=== PATIENT | male | born 1930 | race Caucasian/White ===

== ENCOUNTER 2019-01-26 15:32 | Inpatient (IN) | payer MEDICARE ==
[~2019-01-26] VITALS: Ht 185.4 cm; Wt 97.3 kg
[2019-01-26 16:06] LABS: BASO # 0.1 x10^3/uL (0.0-0.2); BASO % 1 % (0-3); EOS # 0.2 x10^3/uL (0.0-0.7); EOS % 1 % (0-3); HEMOGLOBIN 13.9 g/dL (13.0-17.5); LYMPH # 0.4 x10^3/uL (1.0-4.8); LYMPH % 3 % (24-48); MEAN CORPUSCULAR HEMOGLOBIN 33 pg (25-35); MEAN CORPUSCULAR HGB CONC 32 g/dL (31-37); MEAN CORPUSCULAR VOLUME 102 fL (79-100); MONO # 0.5 x10^3/uL (0.0-1.1); MONO % 4 % (0-9); NEUT # 10.7 x10^3uL (1.8-7.7); NEUT % 91 % (31-73); PLATELET COUNT 172 x10^3/uL (140-400); RED BLOOD COUNT 4.21 x10^6/uL (4.30-5.70); RED CELL DISTRIBUTION WIDTH 16.1 % (11.5-14.5); WHITE BLOOD COUNT 11.7 x10^3/uL (4.0-11.0)
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
[2019-01-26 16:20] LABS: ALBUMIN/GLOBULIN RATIO 0.9 (1.0-1.7); CALCIUM 8.6 mg/dL (8.5-10.1); CREATININE 2.5 mg/dL (0.7-1.3); GFR 24.4; MAGNESIUM 1.8 mg/dL (1.8-2.4); POTASSIUM 4.6 mmol/L (3.5-5.1); TOTAL BILIRUBIN 0.5 mg/dL (0.2-1.0); TOTAL PROTEIN 6.5 g/dL (6.4-8.2)
[2019-01-26 17:08] LABS: BILIRUBIN,URINE NEG (NEG); CLARITY,URINE CLEAR; COLOR,URINE YELLOW; GLUCOSE,URINE NEG (NEG)
[2019-01-26 17:09] LABS: BACTERIA,URINE FEW /HPF (0-FEW); HYALINE CASTS, URINE MANY /HPF; NITRITE,URINE NEG (NEG); RBC,URINE 0 /HPF (0-2); SQUAMOUS EPITHELIAL CELL,UR OCC /LPF; UROBILINOGEN,URINE 0.2 mg/dL (0.2 mg/dL)
[2019-01-26] MEDS ORDERED: IV NORMAL SALINE 1,000ML 1,000 ML IV ONE (17:30)
[2019-01-26 23:33] VITALS: BP 128/57
[2019-01-27] MEDS ORDERED: ACETAMINOPHEN 325 MG TABLET PO PRN
[2019-01-27] MEDS ORDERED: MAG HYDROX/AL HYDROX/SIMETH 30 ML ORAL.SUSP PO PRN
[2019-01-27] MEDS ORDERED: METHYL SALICYLATE/MENTHOL TOPICAL OINTMENT 29GM TUBE. TP PRN
[2019-01-27] MEDS ORDERED: MAGNESIUM HYDROXIDE 2,400 MG/30 ML ORAL.SUSP. PO PRN
[2019-01-27] MEDS ORDERED: ASPI325T8 PO (00:23)
[2019-01-27] MEDS ORDERED: ACET325T9 PO (00:23)
[2019-01-27] MEDS ORDERED: CLOP75TA PO (00:23)
[2019-01-27] MEDS ORDERED: ALLO300T PO (00:23)
[2019-01-27] MEDS ORDERED: ATOR40TA PO (00:23)
[2019-01-27] MEDS ORDERED: FOLI1TAB16 PO (00:23)
[2019-01-27] MEDS ORDERED: FINA5TAB4 PO (00:23)
[2019-01-27] MEDS ORDERED: CLON0.12 PO (00:23)
[2019-01-27] MEDS ORDERED: TAMS0.4C2 PO (00:23)
[2019-01-27] MEDS ORDERED: BRIM5DRO3 OD (00:23)
[2019-01-27] MEDS ORDERED: LATA2.5D3 OU (00:23)
[2019-01-27] MEDS ORDERED: ATEN100T PO (00:23)
[2019-01-27] MEDS ORDERED: ALBU2.5V8 INH (00:23)
[2019-01-27] MEDS ORDERED: HYDR12.58 PO (00:23)
[2019-01-27] MEDS ORDERED: DORZ10DR26 OD (00:23)
[2019-01-27] MEDS ORDERED: LEVO75TA5 PO (00:23)
[2019-01-27] MEDS ORDERED: LOSA50TA86 PO (00:23)
[2019-01-27] MEDS ORDERED: TIMO10DR5 OD (00:23)
[2019-01-27] MEDS ORDERED: PANT40TA5 PO (00:23)
[2019-01-27] MEDS ORDERED: A/C/1TAB PO (00:23)
[2019-01-27] MEDS ORDERED: CLON0.1T PO (00:23)
[2019-01-27] MEDS ORDERED: GABA-585 PO ×2 (00:23)
[2019-01-27] MEDS ORDERED: LACT1CAP21 PO (00:23)
[2019-01-27] MEDS ORDERED: PILO5TAB16 OD (00:23)
[2019-01-27] MEDS ORDERED: MULT1TAB52 PO (00:23)
[2019-01-27] MEDS ORDERED: PARO40TA3 PO (00:24)
[2019-01-27] MEDS ORDERED: TRAZ-120 PO (00:24)
[2019-01-27] MEDS ORDERED: [UNRECOGNIZED DRUG - CODE] TP (00:24)
--- NOTE | 2019-01-27 00:41 | NUR ---
Admission Note with Justification for Admission to [facility] Patient admitted to [facility] for protective oversight for emergency stabilization of acute psychiatric crisis. Pt admitted from: SNF Mode of arrival: EMS Accompanied By: EMS Precipitating behaviors that initiated intake and admission:Combative, Threatening to other patients, delusional. Description of failure of out patient attempts at stabilization in previous setting list behavior and medication trials: Tele psych consult, new dementia Dx, Neurologist Behaviors and assessment findings upon admission: Patient sedated upon arrival and unable to answer assessment questions appropriately. The patient was not resistive during assessment. Patient delusional asking this nurse "are the blue catfish biting?" The patient is currently sleeping in his bed. Plan: Admit for protective oversight for adjustment and stabilization of medications, behaviors and mood. Intense treatment regimen including groups, medication adjustments, therapy, consistent regimen for ADL's, self care, and sleep hygiene. Daily monitoring by Inpatient staff, Psychiatry, and Medical Physician.
[2019-01-27] MEDS ORDERED: ALBUTEROL SULFATE 2.5 MG/3 ML NEBU. INH PRN (01:00)
[2019-01-27 06:09] VITALS: BP 112/76
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
[2019-01-27] MEDS ORDERED: DORZOLAMIDE 2% OPHTH SOLUTION 10ML BOTTLE. OD SCH (09:00)
[2019-01-27] MEDS ORDERED: ALOE VERA TP SCH (09:00)
[2019-01-27] MEDS ORDERED: COLLAGEN TP SCH (09:00)
[2019-01-27] MEDS ORDERED: hydroCHLOROthiazide 12.5 MG CAPSULE PO SCH (09:00)
[2019-01-27] MEDS: TIMOLOL 0.5% OPHTH SOLUTION 5ML BOTTLE. OD SCH ×4 (09:00→20:15)
[2019-01-27] MEDS ORDERED: LOSARTAN 50 MG TABLET. PO SCH (09:00)
[2019-01-27] MEDS ORDERED: PILOCARPINE 1% OPHTH SOLUTION 15ML BOTTLE. OD SCH (09:00)
[2019-01-27] MEDS ORDERED: BRIMONIDINE 0.2% OPHTH SOLUTION 5ML BOTTLE. OD SCH (09:00)
--- NOTE | 2019-01-27 12:47 | NUR ---
Met with Kevan this morning in the quiet room. Kevan indicated he needed to use the bathroom. CHANGE AGENT's notified and assisted. Kevan is alert and oriented to himself. He was hallucinating and spoke of seeing birds, a river, and a green boat. He recalled place as "[place]" and the year as "1988." Kevan answered some questions this worker asked him about his history, unsure of the accuracy of his report. Call placed to [place], son/POA, and received a voice message indicating his mailbox was full. Call placed to next of kin, Velma/daughter, and message left with request for return phone call to verify psychosocial information and to obtain additional history. Awaiting return phone call.
[2019-01-27] MEDS: TAMSULOSIN 0.4 MG CAP.ER.24H. PO SCH (13:23)
[2019-01-27] MEDS: MULTIVITAMIN I-VITE TABLET. PO SCH ×3 (13:23→21:00)
[2019-01-27] MEDS: ALLOPURINOL 100 MG TABLET. PO SCH (13:24)
[2019-01-27] MEDS: LEVOTHYROXINE 75 MCG TABLET PO SCH (13:24)
[2019-01-27] MEDS: MULTIVITAMIN with MINERAL TABLET. PO SCH (13:24)
[2019-01-27] MEDS: GABAPENTIN 100 MG CAPSULE. PO SCH ×4 (13:25→21:00)
[2019-01-27] MEDS: FOLIC ACID 1 MG TABLET PO SCH (13:25)
[2019-01-27] MEDS: FINASTERIDE 5 MG TABLET PO SCH (13:25)
[2019-01-27] MEDS: LACTOBACILLUS RHAMNOSUS GG 1 CAPSULE. PO SCH (13:25)
[2019-01-27] MEDS: PARoxetine 20 MG TABLET PO SCH (13:26)
[2019-01-27] MEDS: ATENOLOL 50 MG TABLET PO SCH (13:26)
[2019-01-27] MEDS: ASPIRIN 325 MG TABLET PO SCH (13:27)
[2019-01-27] MEDS: clonazePAM 0.5 MG TABLET PO SCH ×3 (13:27→19:53)
[2019-01-27] MEDS: CLOPIDOGREL BISULFATE 75 MG TABLET PO SCH (13:27)
[2019-01-27] MEDS: PANTOPRAZOLE 40 MG TABLET. PO SCH (13:27)
[2019-01-27 13:47] LABS: THYROID STIM HORMONE (TSH) 0.567 uIU/mL (0.358-3.740)
[2019-01-27 16:25] VITALS: BP 145/84
--- NOTE | 2019-01-27 16:51 | RAD ---
EXAM: Left lower extremity venous Doppler sonogram. HISTORY: Pain and swelling. TECHNIQUE: Howard scale and color Doppler sonographic evaluation of the left lower extremity veins with spectral waveform analysis was performed. FINDINGS: There is normal color flow, normal compressibility and there are normal spectral waveforms in the common femoral, superficial femoral, popliteal, posterior tibial and greater saphenous veins. IMPRESSION: No Doppler evidence of lower extremity deep venous thrombosis. Electronically signed by: Evette Cheung MD (01/27/2019 4:47 PM) [place] [id number]
--- NOTE | 2019-01-27 17:53 | NUR ---
Behavior Intervention Response and Plan: BIRP Note: Behavior: Assumed Care of patient, patient located in Hallway at shift change. Patient exhibited the following behavior Restless, Disorganized, Drowsy. Brief assessment on rounds of vital signs, medication needs, lab studies, and pain. Treatment plan problems . Intervention: Patient assessed and the following interventions initiated safety checks 15 Minute Checks Cognitive Assessment , Head to toe Assessment , Medications. Response: After interactions and interventions patient responded in the following manner, Calm , Drowsy ,Interactive. Continue to assess behaviors and condition will continue to monitor throughout the shift as needed. Patient educated on ADL's, and hand hygiene. 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 Continue to assess patient for changes in above assessment. Monitor for medication needs, pain, and safety concerns. Hourly rounding performed to ensure safe environment.
[2019-01-27] MEDS: PILOCARPINE 1% OPHTH SOLUTION 15ML BOTTLE. OU SCH ×3 (18:06→20:16)
[2019-01-27] MEDS: DORZOLAMIDE 2% OPHTH SOLUTION 10ML BOTTLE. OU SCH ×3 (18:06→20:16)
--- NOTE | 2019-01-27 18:32 | EKG ---
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
[2019-01-27] MEDS: ATORVASTATIN CALCIUM 20 MG TABLET PO SCH ×2 (19:53→21:00)
[2019-01-27] MEDS: LATANOPROST 0.005% OPHTH SOLUTION 2.5ML BOTTLE. OU SCH ×2 (19:58→20:16)
[2019-01-27] MEDS: BRIMONIDINE 0.2% OPHTH SOLUTION 5ML BOTTLE. OU SCH ×2 (19:59→20:15)
[2019-01-27] MEDS ORDERED: traZODone 50 MG TABLET. PO SCH (21:00)
[2019-01-27 21:07] LABS: THYROXINE 4.2 ug/dL (4.5-12.0)
--- NOTE | 2019-01-27 22:30 | PDOC ---
Exam Note: Scott Note: Please also refer to the separate dictated note~for this date of service dictated separately. Discussed the patient with Nursing staff reviewed the chart.~Reviewed interim history and current functioning. Reviewed vital signs,~ Labs/ Radiology~and current medications noted below. Continue current treatment with the changes noted in the dictated addendum note Assessment: Vital Signs: Vital Signs Date Time Temp Pulse Resp B/P (MAP) Pulse Ox O2 Delivery O2 Flow Rate FiO2 01/27/19 16:25 98.4 63 18 145/84 (104) 97 01/26/19 15:32 Room Air I&O Intake and Output 01/27/19 06:59 Intake Total 0 ml Output Total 1 ml Balance -1 ml Intake Oral 0 ml Output Urine Total 1 ml # Voids 1 # Bowel Movements 2 Current Medications: Meds: Current Medications Sodium Chloride 1,000 ml @ 1,000 mls/hr 1X ONCE IV Last administered on at 17:31; Start 01/26/19 at 17:30; Stop 01/26/19 at 18:29; Status DC Lorazepam (Ativan) 1 mg 1X ONCE IV Last administered on 01/26/19at 21:22; Start 01/26/19 at 21:15; Stop 01/26/19 at 21:23; Status DC Lorazepam (Ativan) 1 mg 1X ONCE IV Last administered on 01/26/19at 22:44; Start 01/26/19 at 22:30; Stop 01/26/19 at 22:32; Status DC Acetaminophen (Tylenol) 650 mg PRN Q6HRS PRN PO PAIN / TEMP; Start 01/27/19 at 00:00; Status Cancel Multi-Ingredient Ointment (Analgesic [place]) 1 edyta PRN QID PRN TP MUSCLE PAIN; Start 01/27/19 at 00:00 Al Hydroxide/Mg Hydroxide (Mylanta Plus Xs) 15 ml PRN AFTMEALHC PRN PO DYSPEPSIA; Start 01/27/19 at 00:00 Magnesium Hydroxide (Milk Of Magnesia) 2,400 mg PRN QHS PRN PO CONSTIPATION; Start 01/27/19 at 00:00 Clonazepam (KlonoPIN) 0.125 mg TID PO Last administered on 01/27/19at 19:53; Start 01/27/19 at 09:00 Paroxetine HCl (Paxil) 40 mg DAILY PO Last administered on 01/27/19 13:26; Start 01/27/19 at 09:00 Trazodone HCl (Desyrel) 12.5 mg QHS PO ; Start 01/27/19 at 21:00; Stop 01/27/19 at 21:00; Status DC Olanzapine (ZyPREXA ZYDIS) 2.5 mg PRN Q2HR PRN PO PSYCHOSIS; Start 01/27/19 at 01:00 Acetaminophen (Tylenol) 650 mg PRN QID PRN PO PAIN; Start 01/27/19 at 01:00 Albuterol Sulfate (Ventolin) 1 mg PRN Q6HRS PRN INH SHORTNESS OF BREATH; Start 01/27/19 at 01:00 Aspirin (Hira Aspirin) 325 mg DAILYWBKFT PO Last administered on 01/27/19 13: 27; Start 01/27/19 at 08:00 Clonidine HCl (Catapres) 0.1 mg PRN DAILY PRN PO HYPERTENSION, SEE COMMENTS; Start 01/27/19 at 01:00 Clopidogrel Bisulfate (Plavix) 75 mg DAILY PO Last administered on 01/27/19 13 :27; Start 01/27/19 at 09:00 Gabapentin (Neurontin) 100 mg BID94 PO Last administered on 01/27/19 18:05; Start 01/27/19 at 09:00 Gabapentin (Neurontin) 100 mg QHS PO Last administered on 01/27/19 19:53; Start 01/27/19 at 21:00 Levothyroxine Sodium (Synthroid) 75 mcg DAILY06 PO Last administered on 13:24; Start 01/27/19 at 06:00 Losartan Potassium (Cozaar) 50 mg DAILY PO Last administered on 01/27/19 13:26 ; Start 01/27/19 at 09:00; Stop 01/27/19 at 14:32; Status DC Tamsulosin HCl (Flomax) 0.4 mg DAILY PO Last administered on 01/27/19 13:23; Start 01/27/19 at 09:00 Multivitamins/ Minerals (I-Alis) 1 tab BID PO Last administered on 01/27/19 19 :54; Start 01/27/19 at 09:00 Allopurinol (Zyloprim) 150 mg DAILY PO Last administered on 01/27/19 13:24; Start 01/27/19 at 09:00 Non-Formulary Medication (Aloe Vera/ Collagen (Sensi-Care Perineal Cleanser)) 1 edyta BID TP ; Start 01/27/19 at 09:00; Stop 01/27/19 at 09:00; Status DC Atenolol (Tenormin) 100 mg DAILY PO Last administered on 01/27/19 13:26; Start 01/27/19 at 09:00 Atorvastatin Calcium (Lipitor) 40 mg HS PO Last administered on 01/27/19at 19:53 ; Start 01/27/19 at 21:00 Brimonidine Tartrate (Alphagan) 1 drop BID OD ; Start 01/27/19 at 09:00; Stop at 12:36; Status DC Dorzolamide HCl (Trusopt) 1 drop BID OD ; Start 01/27/19 at 09:00; Stop at 12:39; Status DC Finasteride (Proscar) 5 mg DAILY PO Last administered on 01/27/19 13:25; Start 01/27/19 at 09:00 Folic Acid (Folic Acid) 1 mg DAILY PO Last administered on 01/27/19 13:25; Start 01/27/19 at 09:00 Hydrochlorothiazide (Microzide) 12.5 mg DAILY PO Last administered on 13:27; Start 01/27/19 at 09:00; Stop 01/27/19 at 14:32; Status DC Lactobacillus Rhamnosus (Culturelle) 1 cap DAILY PO Last administered on at 13:25; Start 01/27/19 at 09:00 Latanoprost (Xalatan) 1 drop QHS OU ; Start 01/27/19 at 21:00 Multivitamins/ Calcium (Thera-M Plus) 1 tab DAILY PO Last administered on 13:24; Start 01/27/19 at 09:00 Pantoprazole Sodium (Protonix) 40 mg DAILYAC PO Last administered on 01/27/19 13:27; Start 01/27/19 at 07:30 Pilocarpine HCl (Pilocar) 1 drop TID OD ; Start 01/27/19 at 09:00; Stop at 12:38; Status DC Timolol Maleate (Timoptic 0.5% Ophth) 1 drop BID OD Last administered on at 09:00; Start 01/27/19 at 07:15 Brimonidine Tartrate (Alphagan) 1 drop BID OU ; Start 01/27/19 at 12:36 Pilocarpine HCl (Pilocar) 1 drop TID OU Last administered on 01/27/19at 18:06; Start 01/27/19 at 12:38 Dorzolamide HCl (Trusopt) 1 drop TID OU Last administered on 01/27/19at 18:06; Start 01/27/19 at 14:00 Olanzapine (ZyPREXA ZYDIS) 2.5 mg PRN Q2HR PRN PO PSYCHOSIS; Start 01/27/19 at 17:30 Trazodone HCl (Desyrel) 50 mg PRN QHS PRN PO INSOMNIA, MAY REPEAT X1; Start at 17:30 Active Scripts Active Reported Sensi-Care Perineal Cleanser (Aloe Vera/Collagen) 118 Ml Solution 1 Edyta TP BID Paroxetine Hcl 40 Mg Tablet 40 Mg PO DAILY Trazodone Hcl 50 Mg Tablet 12.5 Mg PO QHS Dorzolamide Hcl 10 Ml Drops 1 Drp OD BID Timoptic (Timolol Maleate) 10 Ml Drops 1 Drp OD BID Pilocarpine Hcl 5 Mg Tablet 1 Drop OD TID Latanoprost 2.5 Ml Drops 1 Drop OU QHS Alphagan P (Brimonidine Tartrate) 5 Ml Drops 1 Drop OD BID Pantoprazole Sodium 40 Mg Tablet.dr 40 Mg PO DAILY Cozaar (Losartan Potassium) 50 Mg Tablet 50 Mg PO DAILY Levothyroxine Sodium 75 Mcg Tablet 75 Mcg PO DAILYAC Culturelle (Lactobacillus Rhamnosus Gg) 1 Each Capsule 1 Each PO DAILY Gabapentin (Gabapentin) 100 Mg Capsule 100 Mg PO QHS Gabapentin (Gabapentin) 100 Mg Capsule 100 Mg PO BID Finasteride 5 Mg Tablet 5 Mg PO DAILY Clonidine Hcl 0.1 Mg Tablet 0.1 Mg PO PRN DAILY PRN Lipitor (Atorvastatin Calcium) 40 Mg Tablet 40 Mg PO DAILY Atenolol 100 Mg Tablet 100 Mg PO DAILY Allopurinol 300 Mg Tablet 150 Mg PO DAILY Proair Hfa Inhaler (Albuterol Sulfate) 8.5 Gm Hfa.aer.ad 1 Puff INH PRN Q6HRS PRN Multivitamins (Multivitamin) 1 Each Tablet 1 Each PO DAILY Aspirin 325 Mg Tablet 325 Mg PO DAILY Folic Acid 1 Mg Tablet 1 Mg PO DAILY Clopidogrel (Clopidogrel Bisulfate) 75 Mg Tablet 75 Mg PO DAILY Macuvite Eye Care Tablet (A/C/E/Zinc Ox/Cupric Ox/Lutein) 1 Each Tablet 1 Each PO BID Tylenol (Acetaminophen) 325 Mg Tablet 650 Mg PO PRN QID PRN Clonazepam 0.125 Mg Tab.rapdis 0.125 Mg PO TID Tamsulosin Hcl 0.4 Mg Cap.er.24h 0.4 Mg PO DAILY Hydrochlorothiazide Tablet (Hydrochlorothiazide) 12.5 Mg Tablet 12.5 Mg PO DAILY I have reviewed the current psychotropics carefully including drug interactions. Risk benefit ratio favors no change other than as noted in my dictated progress note. Diagnosis: Problems: (1) Medical clearance for psychiatric admission (2) Anxiety disorder (3) Dementia with behavioral disturbance (4) Dementia, vascular, with delusions (5) Dementia, vascular, with depression (6) Dementia in Alzheimer's disease with delusions (7) Dementia in Alzheimer's disease with depression (8) Impulse control disorder PAOLO THOMAS MD Jan 27, 2019 22:30
[2019-01-27] MEDS: traZODone 50 MG TABLET. PO PRN (22:41)
[2019-01-28 00:20] LABS: HEMOGLOBIN A1C 6.4 % (4.8-5.6)
[2019-01-28] MEDS: traZODone 50 MG TABLET. PO PRN ×2 (00:45→20:32)
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
--- NOTE | 2019-01-28 02:49 | NUR ---
Nursing Note The patient was located in the day room initially this shift. The patient was non compliant with his medications. The patient became very irritable during interactions with this nurse and other staff. The patient eventually did put himself onto the floor and was assisted into the quiet [place] for safety. The patient spent the remainder of the night in the quiet [place]. the patient was given PRN Zyprexa and Trazodone @2241. Patient was given repeat Trazodone @0045.
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
[2019-01-28 07:43] LABS: CALCIUM 8.4 mg/dL (8.5-10.1); CREATININE 1.6 mg/dL (0.7-1.3); GFR 40.9; POTASSIUM 3.6 mmol/L (3.5-5.1)
--- NOTE | 2019-01-28 09:46 | NUR ---
Attempted to reach Chino, son/POA, via phone to complete psychosocial assessment. Chino's voice message indicated his mailbox was full. Call placed to Velma, daughter/next of kin, and message left with request for return phone call.
[2019-01-28] MEDS: TAMSULOSIN 0.4 MG CAP.ER.24H. PO SCH (10:01)
[2019-01-28] MEDS: ASPIRIN 325 MG TABLET PO SCH (10:01)
[2019-01-28] MEDS: FOLIC ACID 1 MG TABLET PO SCH (10:01)
[2019-01-28] MEDS: FINASTERIDE 5 MG TABLET PO SCH (10:01)
[2019-01-28] MEDS: MULTIVITAMIN I-VITE TABLET. PO SCH ×3 (10:01→20:31)
[2019-01-28] MEDS: CLOPIDOGREL BISULFATE 75 MG TABLET PO SCH (10:01)
[2019-01-28] MEDS: PARoxetine 20 MG TABLET PO SCH (10:01)
[2019-01-28] MEDS: ALLOPURINOL 100 MG TABLET. PO SCH (10:02)
[2019-01-28] MEDS: LEVOTHYROXINE 75 MCG TABLET PO SCH (10:02)
[2019-01-28] MEDS: LACTOBACILLUS RHAMNOSUS GG 1 CAPSULE. PO SCH (10:02)
[2019-01-28] MEDS: MULTIVITAMIN with MINERAL TABLET. PO SCH (10:03)
[2019-01-28] MEDS: PANTOPRAZOLE 40 MG TABLET. PO SCH (10:03)
[2019-01-28] MEDS: ATENOLOL 50 MG TABLET PO SCH (10:03)
[2019-01-28] MEDS: clonazePAM 0.5 MG TABLET PO SCH ×3 (10:06→20:19)
[2019-01-28] MEDS: GABAPENTIN 100 MG CAPSULE. PO SCH ×4 (10:07→20:57)
[2019-01-28] MEDS: DORZOLAMIDE 2% OPHTH SOLUTION 10ML BOTTLE. OU SCH ×3 (10:08→20:31)
[2019-01-28] MEDS: TIMOLOL 0.5% OPHTH SOLUTION 5ML BOTTLE. OD SCH ×2 (10:09→20:31)
[2019-01-28] MEDS: PILOCARPINE 1% OPHTH SOLUTION 15ML BOTTLE. OU SCH ×3 (10:09→20:31)
[2019-01-28] MEDS: BRIMONIDINE 0.2% OPHTH SOLUTION 5ML BOTTLE. OU SCH ×2 (10:10→20:31)
--- NOTE | 2019-01-28 15:00 | NUR ---
[facility] down from ~ [id number]. Morning Activity Therapy group charted on paper forms and filed in Pt. chart.
--- NOTE | 2019-01-28 15:26 | NUR ---
PSYCHOSOCIAL ASSESSMENT ADMISSION DATE: 01/26/19 CONTACT INFORMATION: DPOA/Guardian Contact Name: Chino Jauregui Contact Address: [address] [address] Contact Phone #: [phone] ETHNIC ORIGIN: REASONS FOR ADMISSION: Aggressive Agitated Angry Combative Confusion/Disoriented Grief Hallucinations Poor impulse control ADDITIONAL ADMISSION COMMENTS: paranoid REASON FOR ADMISSION IN PATIENT/FAMILY'S OWN WORDS: Family reports rapid decline in cognition since November 2018, unsure why. Kevan has had increased confusion, paranoia, anxiety and family feels he could be sundowning. Kevan was dx with early dementia by his neurologist on 12/31/2018. PATIENT/FAMILY EXPECTATIONS FOR ADMISSION: Family hopeful for clarification on what is causing Kevan's rapid cognitive decline. Once stabilized, Kevan's family has a room reserved for him at [facility]. LIVING SITUATION: Patient lives with: Child/children Other living arrangements: At son and daughter in law's home for the past year. Kevan's in 12/2017 and he moved in with Chino following her . Contact Name: Chino Jauregui Contact Address: [address] [address] Contact Phone #: [phone] FAMILY RELATIONS: Marital Status: # of Marriages: 2 # of Children: 5 [facility] Family Support: Concerned Cooperative Involved in DC Planning Additional Comments r/t Family: Kevan has been twice. His first was April and they had two children, Irma and Mercy. They . Kevan remarried to May and they had three children, Cody, Chino, and Vlema. They were for 61 years until Joimay in December 2017. Their marriage was described as good and happy. Kevan has 13 grand children and great grandchildren too. SIGNIFICANT PSYCHIATRIC/MEDICAL HISTORY: Psychiatric/Treatment History: No previous in patient psychiatric treatment per family. Kevan had seen psychiatrist, Dr. Love, about 15 years ago and was prescribed clonazepam prn for anxiety. Family reports Kevan to have always been a "nervous" person. Pertinent Family History: Kevan was born in [place] and raised in the [place] area. His father was a mill house supervisor and mother was a homemaker. Kevan was the oldest of four children. He had three younger sisters. Kevan's father was a drinker. Kevan did not suffer any known abuse or neglect as a child. HISTORICAL DATA: Childhood Environment: [place] Comment: Psychological Abuse: None Additional Comments: Drug Abuse History last 12 months: No Comment: Kevan quit smoking in 1990. Kevan used to drink beer on a daily basis when he was younger and working. Family expressed that he may have consumed alcohol as a way to relax his nerves after working. At this time, Kevan drinks a beer a couple times a week. 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 Sexual orientation: Heterosexual Educational Level: Kevan graduated high school. Past/Present Interests/Hobbies: Kevan has enjoyed fishing, wood working, filling his bird feeders, and likes [employer]kon[employer] music. Financial support/resources: [facility]/Pension Social Security Monthly income: unknown, adequate Person handling finances: Chino Hermosillo-son Do you have a history of legal problems: No. Kevan may have spent a night in intermediate related to child support payments. Cultural considerations: None reported. SOCIAL RELATIONSHIPS-CURRENT/PAST: Psychiatrist: None at current time. PCP: Dr. Myra Phelps Counselor/Therapist: None. Veterans' Administration: Family is researching VA benefits currently. Support Group: None. Drafter Seismograph/Linen Supply Load Builder: None. Other relationships: Kids and grand kids are attentive. STRENGTHS & WEAKNESSES: Patient's strengths: Good family support, strong relationships Other patient strengths: Adequate funds for group home care Patient's weaknesses: Impaired memory and aggressive behaviors Other patient weaknesses: NO[place]K, aided times two. 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 Hallucination/Delusions Medication Stabilization Monitor Med Effects Control abnormal behavior Other preliminary treatment comments: Will encourage Kevan to be involved in SW and recreational therapy groups while on the unit. DISCHARGE PLANNING: Discharge planning/disposition: [facility] Additional discharge needs identified: Follow up appointment with out patient psychiatrist. ADDITIONAL INFORMATION: Other Pertinent Data: Psychosocial assessment information was provided by Chino, son, on 01/28/19. Most of the information that Kevan had provided to this worker on 01/27/19 was not accurate. When this worker interviewed Kevan on 01/27/19, Kevan was oriented to himself only. He was hallucinating and spoke of seeing birds, a river, and a green boat. He recalled place as "[place]." Chino and his have been Kevan's care takers for the past year, moving Kevan into their home after Kevan's in December 2017. Chino expressed they were in the process of researching care communities as Kevan has declined since 11/2018 and they were not feeling comfortable leaving Kevan at home while they went to work. Chino explained that Kevan was diagnosed by a neurologist on 12/31/2018 with unspecified early dementia and prescribed memantine. On 01/06/19, Kevan was hospitalized for increased confusion, UTI, and possible CHF. On 01/12/19, Kevan was discharged from the hospital and admitted to [facility] for short term rehab. Per family, Kevan has had a rapid cognitive decline since mid November 2018. Chino plans to attend treatment team on 01/29/19. Addendum: 01/28/19 at 1659 by KATELYN GARCIA [facility] [place] reviewed and approves assessment.
[2019-01-28 15:59] VITALS: BP 91/59
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
[2019-01-28] MEDS: MIRTAZAPINE 7.5 MG TABLET. PO SCH (20:19)
[2019-01-28] MEDS: ATORVASTATIN CALCIUM 20 MG TABLET PO SCH ×2 (20:20→20:31)
[2019-01-28] MEDS: LATANOPROST 0.005% OPHTH SOLUTION 2.5ML BOTTLE. OU SCH (20:31)
--- NOTE | 2019-01-28 22:34 | PDOC ---
Exam Note: Scott Note: Please also refer to the separate dictated note~for this date of service dictated separately.~Patient seen individually. Discussed the patient with Nursing staff reviewed the chart.~Reviewed interim history and current functioning. Reviewed vital signs,~Labs/ Radiology~and current medications noted below. Continue current treatment with the changes noted in the dictated addendum note Assessment: Vital Signs: Vital Signs Date Time Temp Pulse Resp B/P (MAP) Pulse Ox O2 Delivery O2 Flow Rate FiO2 01/28/19 15:59 97.8 77 20 91/59 (70) 93 01/26/19 15:32 Room Air I&O Intake and Output 01/28/19 06:59 Intake Total 760 ml Balance 760 ml Intake Oral 760 ml # Bowel Movements 1 Labs: Laboratory Tests Test 01/28/19 07:02 Sodium Level 143 mmol/L (136-145) Potassium Level 3.6 mmol/L (3.5-5.1) Chloride Level 107 mmol/L (98-107) Carbon Dioxide Level 26 mmol/L (21-32) Anion Gap 10 (6-14) Blood Urea Nitrogen 27 mg/dL (8-26) H Creatinine 1.6 mg/dL (0.7-1.3) H Estimated GFR (Cockcroft-Gault) 40.9 Glucose Level 113 mg/dL (70-99) H Calcium Level 8.4 mg/dL (8.5-10.1) L Current Medications: Meds: Current Medications Sodium Chloride 1,000 ml @ 1,000 mls/hr 1X ONCE IV Last administered on at 17:31; Start 01/26/19 at 17:30; Stop 01/26/19 at 18:29; Status DC Lorazepam (Ativan) 1 mg 1X ONCE IV Last administered on 01/26/19at 21:22; Start 01/26/19 at 21:15; Stop 01/26/19 at 21:23; Status DC Lorazepam (Ativan) 1 mg 1X ONCE IV Last administered on 01/26/19at 22:44; Start 01/26/19 at 22:30; Stop 01/26/19 at 22:32; Status DC Acetaminophen (Tylenol) 650 mg PRN Q6HRS PRN PO PAIN / TEMP; Start 01/27/19 at 00:00; Status Cancel Multi-Ingredient Ointment (Analgesic Melvin) 1 edyta PRN QID PRN TP MUSCLE PAIN; Start 01/27/19 at 00:00 Al Hydroxide/Mg Hydroxide (Mylanta Plus Xs) 15 ml PRN AFTMEALHC PRN PO DYSPEPSIA; Start 01/27/19 at 00:00 Magnesium Hydroxide (Milk Of Magnesia) 2,400 mg PRN QHS PRN PO CONSTIPATION; Start 01/27/19 at 00:00 Clonazepam (KlonoPIN) 0.125 mg TID PO Last administered on 01/28/19 20:19; Start 01/27/19 at 09:00 Paroxetine HCl (Paxil) 40 mg DAILY PO Last administered on 01/28/19 10:01; Start 01/27/19 at 09:00 Trazodone HCl (Desyrel) 12.5 mg QHS PO ; Start 01/27/19 at 21:00; Stop 01/27/19 at 21:00; Status DC Olanzapine (ZyPREXA ZYDIS) 2.5 mg PRN Q2HR PRN PO PSYCHOSIS Last administered on 01/28/19at 20:32; Start 01/27/19 at 01:00 Acetaminophen (Tylenol) 650 mg PRN QID PRN PO PAIN; Start 01/27/19 at 01:00 Albuterol Sulfate (Ventolin) 1 mg PRN Q6HRS PRN INH SHORTNESS OF BREATH; Start 01/27/19 at 01:00 Aspirin (Hira Aspirin) 325 mg DAILYWBKFT PO Last administered on 01/28/19 10: 01; Start 01/27/19 at 08:00 Clonidine HCl (Catapres) 0.1 mg PRN DAILY PRN PO HYPERTENSION, SEE COMMENTS; Start 01/27/19 at 01:00 Clopidogrel Bisulfate (Plavix) 75 mg DAILY PO Last administered on 01/28/19 10 :01; Start 01/27/19 at 09:00 Gabapentin (Neurontin) 100 mg BID94 PO Last administered on 01/28/19at 16:09; Start 01/27/19 at 09:00 Gabapentin (Neurontin) 100 mg QHS PO ; Start 01/27/19 at 21:00 Levothyroxine Sodium (Synthroid) 75 mcg DAILY06 PO Last administered on 10:02; Start 01/27/19 at 06:00 Losartan Potassium (Cozaar) 50 mg DAILY PO Last administered on 01/27/19 13:26 ; Start 01/27/19 at 09:00; Stop 01/27/19 at 14:32; Status DC Tamsulosin HCl (Flomax) 0.4 mg DAILY PO Last administered on 01/28/19 10:01; Start 01/27/19 at 09:00 Multivitamins/ Minerals (I-Alis) 1 tab BID PO Last administered on 01/28/19 10 :01; Start 01/27/19 at 09:00 Allopurinol (Zyloprim) 150 mg DAILY PO Last administered on 01/28/19 10:02; Start 01/27/19 at 09:00 Non-Formulary Medication (Aloe Vera/ Collagen (Sensi-Care Perineal Cleanser)) 1 edyta BID TP ; Start 01/27/19 at 09:00; Stop 01/27/19 at 09:00; Status DC Atenolol (Tenormin) 100 mg DAILY PO Last administered on 01/28/19at 10:03; Start 01/27/19 at 09:00 Atorvastatin Calcium (Lipitor) 40 mg HS PO ; Start 01/27/19 at 21:00 Brimonidine Tartrate (Alphagan) 1 drop BID OD ; Start 01/27/19 at 09:00; Stop at 12:36; Status DC Dorzolamide HCl (Trusopt) 1 drop BID OD ; Start 01/27/19 at 09:00; Stop at 12:39; Status DC Finasteride (Proscar) 5 mg DAILY PO Last administered on 01/28/19 10:01; Start 01/27/19 at 09:00 Folic Acid (Folic Acid) 1 mg DAILY PO Last administered on 01/28/19 10:01; Start 01/27/19 at 09:00 Hydrochlorothiazide (Microzide) 12.5 mg DAILY PO Last administered on 13:27; Start 01/27/19 at 09:00; Stop 01/27/19 at 14:32; Status DC Lactobacillus Rhamnosus (Culturelle) 1 cap DAILY PO Last administered on at 10:02; Start 01/27/19 at 09:00 Latanoprost (Xalatan) 1 drop QHS OU ; Start 01/27/19 at 21:00 Multivitamins/ Calcium (Thera-M Plus) 1 tab DAILY PO Last administered on 10:03; Start 01/27/19 at 09:00 Pantoprazole Sodium (Protonix) 40 mg DAILYAC PO Last administered on 01/28/19 10:03; Start 01/27/19 at 07:30 Pilocarpine HCl (Pilocar) 1 drop TID OD ; Start 01/27/19 at 09:00; Stop at 12:38; Status DC Timolol Maleate (Timoptic 0.5% Ophth) 1 drop BID OD Last administered on 10:09; Start 01/27/19 at 07:15 Brimonidine Tartrate (Alphagan) 1 drop BID OU Last administered on 01/28/19 10 :10; Start 01/27/19 at 12:36 Pilocarpine HCl (Pilocar) 1 drop TID OU Last administered on 01/28/19 10:09; Start 01/27/19 at 12:38 Dorzolamide HCl (Trusopt) 1 drop TID OU Last administered on 01/28/19 10:08; Start 01/27/19 at 14:00 Olanzapine (ZyPREXA ZYDIS) 2.5 mg PRN Q2HR PRN PO PSYCHOSIS; Start 01/27/19 at 17:30 Trazodone HCl (Desyrel) 50 mg PRN QHS PRN PO INSOMNIA, MAY REPEAT X1 Last administered on 01/28/19at 20:32; Start 01/27/19 at 17:30 Mirtazapine (Remeron) 7.5 mg QHS PO Last administered on 01/28/19 20:19; Start 01/28/19 at 21:00 Active Scripts Active Reported Sensi-Care Perineal Cleanser (Aloe Vera/Collagen) 118 Ml Solution 1 Edyta TP BID Paroxetine Hcl 40 Mg Tablet 40 Mg PO DAILY Trazodone Hcl 50 Mg Tablet 12.5 Mg PO QHS Dorzolamide Hcl 10 Ml Drops 1 Drp OD BID Timoptic (Timolol Maleate) 10 Ml Drops 1 Drp OD BID Pilocarpine Hcl 5 Mg Tablet 1 Drop OD TID Latanoprost 2.5 Ml Drops 1 Drop OU QHS Alphagan P (Brimonidine Tartrate) 5 Ml Drops 1 Drop OD BID Pantoprazole Sodium 40 Mg Tablet.dr 40 Mg PO DAILY Cozaar (Losartan Potassium) 50 Mg Tablet 50 Mg PO DAILY Levothyroxine Sodium 75 Mcg Tablet 75 Mcg PO DAILYAC Culturelle (Lactobacillus Rhamnosus Gg) 1 Each Capsule 1 Each PO DAILY Gabapentin (Gabapentin) 100 Mg Capsule 100 Mg PO QHS Gabapentin (Gabapentin) 100 Mg Capsule 100 Mg PO BID Finasteride 5 Mg Tablet 5 Mg PO DAILY Clonidine Hcl 0.1 Mg Tablet 0.1 Mg PO PRN DAILY PRN Lipitor (Atorvastatin Calcium) 40 Mg Tablet 40 Mg PO DAILY Atenolol 100 Mg Tablet 100 Mg PO DAILY Allopurinol 300 Mg Tablet 150 Mg PO DAILY Proair Hfa Inhaler (Albuterol Sulfate) 8.5 Gm Hfa.aer.ad 1 Puff INH PRN Q6HRS PRN Multivitamins (Multivitamin) 1 Each Tablet 1 Each PO DAILY Aspirin 325 Mg Tablet 325 Mg PO DAILY Folic Acid 1 Mg Tablet 1 Mg PO DAILY Clopidogrel (Clopidogrel Bisulfate) 75 Mg Tablet 75 Mg PO DAILY Macuvite Eye Care Tablet (A/C/E/Zinc Ox/Cupric Ox/Lutein) 1 Each Tablet 1 Each PO BID Tylenol (Acetaminophen) 325 Mg Tablet 650 Mg PO PRN QID PRN Clonazepam 0.125 Mg Tab.rapdis 0.125 Mg PO TID Tamsulosin Hcl 0.4 Mg Cap.er.24h 0.4 Mg PO DAILY Hydrochlorothiazide Tablet (Hydrochlorothiazide) 12.5 Mg Tablet 12.5 Mg PO DAILY I have reviewed the current psychotropics carefully including drug interactions. Risk benefit ratio favors no change other than as noted in my dictated progress note. Diagnosis: Problems: (1) Medical clearance for psychiatric admission (2) Anxiety disorder (3) Dementia with behavioral disturbance (4) Dementia, vascular, with delusions (5) Dementia, vascular, with depression (6) Dementia in Alzheimer's disease with delusions (7) Dementia in Alzheimer's disease with depression (8) Impulse control disorder PAOLO THOMAS MD Jan 28, 2019 22:34
--- NOTE | 2019-01-29 01:04 | NUR ---
Nursing Note The patient was non compliant with his medications this shift and was extremely disoriented. The patient was calling out numerous names and for his father. The patient was very difficult to communicate with. The patient was given PRN Trazodone and PRN Zyprexa @ HS. The patient continued to crawl around in the hallway attempting to stand without assistance. the patient is currently laying in bed awake.
[2019-01-29 05:56] VITALS: BP 116/74
[2019-01-29] MEDS: PANTOPRAZOLE 40 MG TABLET. PO SCH (07:30)
--- NOTE | 2019-01-29 09:24 | NUR ---
WEEKLY ACTIVITY THERAPY NOTE Date of Admission: 01/27/2019 Date of AT Assessment: TBD Goal aimed: TBD Initial goal: TBD Weekly progress towards goal: NA Group participation level: zero Behaviors observed: sleeping most of the time, more observation needed Plan: meet/ assess Pt.
--- NOTE | 2019-01-29 11:07 | NUR ---
Nursing Note: Spoke to pt's son, Chino, and asked if he could bring a pair of shoes for pt that would work well for PT/OT. Son will bring Tennis Shoes tomorrow.
--- NOTE | 2019-01-29 11:07 | NUR ---
WEEKLY NOTE: Pt son, Chino, participated in tx team in person. Pt is eating 75% and only slept 3.5 hours last night. Behaviorally, pt is restless, refusing medications and spitting out medications when given. Pt was placed on the floor for safety and has poor group participation and activities will work on doing 1:1 time with him. Pt son reports that he cared for his father for the last year, as his in 2017. Pt was very functional at that time, it was just in the last couple months that pt has started to decline. Pt met with a neurologist on and was described to have dementia at that time. Pt will receive a CT without contrast. Pt family is working with SW getting pt into a more appropriate Memory Care setting. Pt will be admitted to [facility] with a tentative discharge scheduled in the next week or two.
[2019-01-29] MEDS: LEVOTHYROXINE 75 MCG TABLET PO SCH (11:15)
[2019-01-29] MEDS: ALLOPURINOL 100 MG TABLET. PO SCH (11:16)
[2019-01-29] MEDS: TAMSULOSIN 0.4 MG CAP.ER.24H. PO SCH (11:16)
[2019-01-29] MEDS: CLOPIDOGREL BISULFATE 75 MG TABLET PO SCH (11:16)
[2019-01-29] MEDS: FOLIC ACID 1 MG TABLET PO SCH (11:16)
[2019-01-29] MEDS: MULTIVITAMIN with MINERAL TABLET. PO SCH (11:18)
[2019-01-29] MEDS: LACTOBACILLUS RHAMNOSUS GG 1 CAPSULE. PO SCH (11:18)
[2019-01-29] MEDS: MULTIVITAMIN I-VITE TABLET. PO SCH ×3 (11:18→21:21)
[2019-01-29] MEDS: clonazePAM 0.5 MG TABLET PO SCH ×3 (11:18→21:21)
[2019-01-29] MEDS: GABAPENTIN 100 MG CAPSULE. PO SCH ×4 (11:18→21:21)
[2019-01-29] MEDS: FINASTERIDE 5 MG TABLET PO SCH (11:18)
[2019-01-29] MEDS: ATENOLOL 50 MG TABLET PO SCH (11:19)
[2019-01-29] MEDS: PARoxetine 20 MG TABLET PO SCH (11:20)
[2019-01-29] MEDS: ASPIRIN 325 MG TABLET PO SCH (11:20)
[2019-01-29] MEDS: DORZOLAMIDE 2% OPHTH SOLUTION 10ML BOTTLE. OU SCH ×3 (11:34→21:00)
[2019-01-29] MEDS: PILOCARPINE 1% OPHTH SOLUTION 15ML BOTTLE. OU SCH ×3 (11:35→21:00)
[2019-01-29] MEDS: TIMOLOL 0.5% OPHTH SOLUTION 5ML BOTTLE. OD SCH ×2 (11:35→21:00)
[2019-01-29] MEDS: BRIMONIDINE 0.2% OPHTH SOLUTION 5ML BOTTLE. OU SCH ×2 (11:35→21:00)
--- NOTE | 2019-01-29 11:45 | NUR ---
Pt slept most of morning and refused breakfast. Pt pleasant and cooperative with dressing and toileting when he woke up and ambulated around the unit with PT and OT. Pt was pleasant and cooperative with assessment and medications. Continue to monitorl
--- NOTE | 2019-01-29 13:44 | RAD ---
EXAM: Head CT without contrast. HISTORY: Mental status changes. TECHNIQUE: Computed tomographic images of the head were obtained without contrast. *One or more of the following individualized dose reduction techniques were utilized for this examination: 1. Automated exposure control. 2. Adjustment of the mA and/or kV according to patient size. 3. Use of iterative reconstruction technique. COMPARISON: None. FINDINGS: There is no acute or subacute extra-axial or intraparenchymal hemorrhage. There is no mass effect or midline shift. There is no hydrocephalus. There are areas of decreased attenuation within the cerebral white matter, nonspecific and likely related to chronic small vessel disease. There is cerebral atrophy with compensatory enlargement of the ventricles. There is a suspected tiny chronic lacunar infarct within the left caudate nucleus. There is a small incidental calcification within the right basal ganglia. There is evidence of lens surgery. The visualized paranasal sinuses mastoid air cells are unremarkable. No calvarial lesion is seen. IMPRESSION: 1. Decreased attenuation within the cerebral white matter, likely due to chronic small vessel disease. 2. Cerebral atrophy. 3. Suspected tiny chronic lacunar infarct within the left caudate nucleus. 4. No acute intracranial finding. Note is made that MRI is more sensitive for acute infarction. Electronically signed by: Evette Cheung MD (01/29/2019 1:41 PM) [id number]
--- NOTE | 2019-01-29 15:38 | NUR ---
Pt refused afternoon meds and became aggressive and agitated toward staff. PRN Zyprexa and scheduled Klonopin administered orally and pt assisted to quiet room with staff member to allow pt to calm himself down. Pt refused his eye drops and Gabapentin. Continue to monitor.
[2019-01-29 16:24] VITALS: BP 99/59
[2019-01-29] MEDS: ATORVASTATIN CALCIUM 20 MG TABLET PO SCH ×2 (21:00→21:21)
[2019-01-29] MEDS: LATANOPROST 0.005% OPHTH SOLUTION 2.5ML BOTTLE. OU SCH (21:00)
[2019-01-29] MEDS: MIRTAZAPINE 7.5 MG TABLET. PO SCH (21:21)
[2019-01-29] MEDS: traZODone 50 MG TABLET. PO PRN (21:23)
--- NOTE | 2019-01-29 22:28 | PDOC ---
Exam Note: Scott Note: Please also refer to the separate dictated note~for this date of service dictated separately.~Patient seen individually. Discussed the patient with Nursing staff reviewed the chart.~Reviewed interim history and current functioning. Reviewed vital signs,~Labs/ Radiology~and current medications noted below. Continue current treatment with the changes noted in the dictated addendum note Assessment: Vital Signs: Vital Signs Date Time Temp Pulse Resp B/P (MAP) Pulse Ox O2 Delivery O2 Flow Rate FiO2 01/29/19 16:24 97.8 99/59 (72) Room Air 01/29/19 11:19 88 01/29/19 05:56 18 100 I&O Intake and Output 01/29/19 07:00 Intake Total 880 ml Balance 880 ml Intake Oral 880 ml # Voids 1 Current Medications: Meds: Current Medications Sodium Chloride 1,000 ml @ 1,000 mls/hr 1X ONCE IV Last administered on 17:31; Start 01/26/19 at 17:30; Stop 01/26/19 at 18:29; Status DC Lorazepam (Ativan) 1 mg 1X ONCE IV Last administered on 01/26/19at 21:22; Start 01/26/19 at 21:15; Stop 01/26/19 at 21:23; Status DC Lorazepam (Ativan) 1 mg 1X ONCE IV Last administered on 01/26/19at 22:44; Start 01/26/19 at 22:30; Stop 01/26/19 at 22:32; Status DC Acetaminophen (Tylenol) 650 mg PRN Q6HRS PRN PO PAIN / TEMP; Start 01/27/19 at 00:00; Status Cancel Multi-Ingredient Ointment (Analgesic [place]) 1 edyta PRN QID PRN TP MUSCLE PAIN; Start 01/27/19 at 00:00 Al Hydroxide/Mg Hydroxide (Mylanta Plus Xs) 15 ml PRN AFTMEALHC PRN PO DYSPEPSIA; Start 01/27/19 at 00:00 Magnesium Hydroxide (Milk Of Magnesia) 2,400 mg PRN QHS PRN PO CONSTIPATION; Start 01/27/19 at 00:00 Clonazepam (KlonoPIN) 0.125 mg TID PO Last administered on 01/29/19at 21:21; Start 01/27/19 at 09:00 Paroxetine HCl (Paxil) 40 mg DAILY PO Last administered on 01/29/19 11:20; Start 01/27/19 at 09:00 Trazodone HCl (Desyrel) 12.5 mg QHS PO ; Start 01/27/19 at 21:00; Stop 01/27/19 at 21:00; Status DC Olanzapine (ZyPREXA ZYDIS) 2.5 mg PRN Q2HR PRN PO PSYCHOSIS Last administered on 01/29/19 21:27; Start 01/27/19 at 01:00 Acetaminophen (Tylenol) 650 mg PRN QID PRN PO PAIN; Start 01/27/19 at 01:00 Albuterol Sulfate (Ventolin) 1 mg PRN Q6HRS PRN INH SHORTNESS OF BREATH; Start 01/27/19 at 01:00 Aspirin (Hira Aspirin) 325 mg DAILYWBKFT PO Last administered on 01/29/19 11: 20; Start 01/27/19 at 08:00 Clonidine HCl (Catapres) 0.1 mg PRN DAILY PRN PO HYPERTENSION, SEE COMMENTS; Start 01/27/19 at 01:00 Clopidogrel Bisulfate (Plavix) 75 mg DAILY PO Last administered on 01/29/19 11 :16; Start 01/27/19 at 09:00 Gabapentin (Neurontin) 100 mg BID94 PO Last administered on 01/29/19 11:18; Start 01/27/19 at 09:00 Gabapentin (Neurontin) 100 mg QHS PO ; Start 01/27/19 at 21:00 Levothyroxine Sodium (Synthroid) 75 mcg DAILY06 PO Last administered on 11:15; Start 01/27/19 at 06:00 Losartan Potassium (Cozaar) 50 mg DAILY PO Last administered on 01/27/19 13:26 ; Start 01/27/19 at 09:00; Stop 01/27/19 at 14:32; Status DC Tamsulosin HCl (Flomax) 0.4 mg DAILY PO Last administered on 01/29/19 11:16; Start 01/27/19 at 09:00 Multivitamins/ Minerals (I-Alis) 1 tab BID PO Last administered on 01/29/19 11 :18; Start 01/27/19 at 09:00 Allopurinol (Zyloprim) 150 mg DAILY PO Last administered on 01/29/19 11:16; Start 01/27/19 at 09:00 Non-Formulary Medication (Aloe Vera/ Collagen (Sensi-Care Perineal Cleanser)) 1 edyta BID TP ; Start 01/27/19 at 09:00; Stop 01/27/19 at 09:00; Status DC Atenolol (Tenormin) 100 mg DAILY PO Last administered on 01/29/19at 11:19; Start 01/27/19 at 09:00 Atorvastatin Calcium (Lipitor) 40 mg HS PO ; Start 01/27/19 at 21:00 Brimonidine Tartrate (Alphagan) 1 drop BID OD ; Start 01/27/19 at 09:00; Stop at 12:36; Status DC Dorzolamide HCl (Trusopt) 1 drop BID OD ; Start 01/27/19 at 09:00; Stop at 12:39; Status DC Finasteride (Proscar) 5 mg DAILY PO Last administered on 01/29/19at 11:18; Start 01/27/19 at 09:00 Folic Acid (Folic Acid) 1 mg DAILY PO Last administered on 01/29/19at 11:16; Start 01/27/19 at 09:00 Hydrochlorothiazide (Microzide) 12.5 mg DAILY PO Last administered on at 13:27; Start 01/27/19 at 09:00; Stop 01/27/19 at 14:32; Status DC Lactobacillus Rhamnosus (Culturelle) 1 cap DAILY PO Last administered on at 11:18; Start 01/27/19 at 09:00 Latanoprost (Xalatan) 1 drop QHS OU ; Start 01/27/19 at 21:00 Multivitamins/ Calcium (Thera-M Plus) 1 tab DAILY PO Last administered on at 11:18; Start 01/27/19 at 09:00 Pantoprazole Sodium (Protonix) 40 mg DAILYAC PO Last administered on 01/28/19at 10:03; Start 01/27/19 at 07:30; Stop 01/29/19 at 11:24; Status DC Pilocarpine HCl (Pilocar) 1 drop TID OD ; Start 01/27/19 at 09:00; Stop at 12:38; Status DC Timolol Maleate (Timoptic 0.5% Ophth) 1 drop BID OD Last administered on at 11:35; Start 01/27/19 at 07:15 Brimonidine Tartrate (Alphagan) 1 drop BID OU Last administered on 01/29/19 11 :35; Start 01/27/19 at 12:36 Pilocarpine HCl (Pilocar) 1 drop TID OU Last administered on 01/29/19at 11:35; Start 01/27/19 at 12:38 Dorzolamide HCl (Trusopt) 1 drop TID OU Last administered on 01/29/19 11:34; Start 01/27/19 at 14:00 Olanzapine (ZyPREXA ZYDIS) 2.5 mg PRN Q2HR PRN PO PSYCHOSIS; Start 01/27/19 at 17:30; Stop 01/29/19 at 17:13; Status DC Trazodone HCl (Desyrel) 50 mg PRN QHS PRN PO INSOMNIA, MAY REPEAT X1 Last administered on 01/29/19at 21:23; Start 01/27/19 at 17:30 Mirtazapine (Remeron) 7.5 mg QHS PO Last administered on 01/29/19at 21:21; Start 01/28/19 at 21:00 Lansoprazole (Prevacid) 30 mg DAILYAC PO ; Start 01/30/19 at 07:30 Active Scripts Active Reported Sensi-Care Perineal Cleanser (Aloe Vera/Collagen) 118 Ml Solution 1 Edyta TP BID Paroxetine Hcl 40 Mg Tablet 40 Mg PO DAILY Trazodone Hcl 50 Mg Tablet 12.5 Mg PO QHS Dorzolamide Hcl 10 Ml Drops 1 Drp OD BID Timoptic (Timolol Maleate) 10 Ml Drops 1 Drp OD BID Pilocarpine Hcl 5 Mg Tablet 1 Drop OD TID Latanoprost 2.5 Ml Drops 1 Drop OU QHS Alphagan P (Brimonidine Tartrate) 5 Ml Drops 1 Drop OD BID Pantoprazole Sodium 40 Mg Tablet.dr 40 Mg PO DAILY Cozaar (Losartan Potassium) 50 Mg Tablet 50 Mg PO DAILY Levothyroxine Sodium 75 Mcg Tablet 75 Mcg PO DAILYAC Culturelle (Lactobacillus Rhamnosus Gg) 1 Each Capsule 1 Each PO DAILY Gabapentin (Gabapentin) 100 Mg Capsule 100 Mg PO QHS Gabapentin (Gabapentin) 100 Mg Capsule 100 Mg PO BID Finasteride 5 Mg Tablet 5 Mg PO DAILY Clonidine Hcl 0.1 Mg Tablet 0.1 Mg PO PRN DAILY PRN Lipitor (Atorvastatin Calcium) 40 Mg Tablet 40 Mg PO DAILY Atenolol 100 Mg Tablet 100 Mg PO DAILY Allopurinol 300 Mg Tablet 150 Mg PO DAILY Proair Hfa Inhaler (Albuterol Sulfate) 8.5 Gm Hfa.aer.ad 1 Puff INH PRN Q6HRS PRN Multivitamins (Multivitamin) 1 Each Tablet 1 Each PO DAILY Aspirin 325 Mg Tablet 325 Mg PO DAILY Folic Acid 1 Mg Tablet 1 Mg PO DAILY Clopidogrel (Clopidogrel Bisulfate) 75 Mg Tablet 75 Mg PO DAILY Macuvite Eye Care Tablet (A/C/E/Zinc Ox/Cupric Ox/Lutein) 1 Each Tablet 1 Each PO BID Tylenol (Acetaminophen) 325 Mg Tablet 650 Mg PO PRN QID PRN Clonazepam 0.125 Mg Tab.rapdis 0.125 Mg PO TID Tamsulosin Hcl 0.4 Mg Cap.er.24h 0.4 Mg PO DAILY Hydrochlorothiazide Tablet (Hydrochlorothiazide) 12.5 Mg Tablet 12.5 Mg PO DAILY I have reviewed the current psychotropics carefully including drug interactions. Risk benefit ratio favors no change other than as noted in my dictated progress note. Diagnosis: Problems: (1) Medical clearance for psychiatric admission (2) Anxiety disorder (3) Dementia with behavioral disturbance (4) Dementia, vascular, with delusions (5) Dementia, vascular, with depression (6) Dementia in Alzheimer's disease with delusions (7) Dementia in Alzheimer's disease with depression (8) Impulse control disorder PAOLO THOMAS MD Jan 29, 2019 22:28
--- NOTE | 2019-01-30 00:25 | NUR ---
Nursing Note The patient was located in the hallway for his medications and assessment. The patient was non compliant with medications and was attempting to stand without assistance and is very unsteady. The patient is very resistive during cares and redirection. The patient was given PRN Trazodone and Zyprexa @ HS. The patient is currently sleeping in his room.
[2019-01-30 06:11] VITALS: BP 139/77
[2019-01-30] MEDS: CLOPIDOGREL BISULFATE 75 MG TABLET PO SCH (07:44)
[2019-01-30] MEDS: ALLOPURINOL 100 MG TABLET. PO SCH (07:44)
[2019-01-30] MEDS: FOLIC ACID 1 MG TABLET PO SCH (07:44)
[2019-01-30] MEDS: MULTIVITAMIN I-VITE TABLET. PO SCH ×2 (07:44→19:10)
[2019-01-30] MEDS: PARoxetine 20 MG TABLET PO SCH (07:44)
[2019-01-30] MEDS: LACTOBACILLUS RHAMNOSUS GG 1 CAPSULE. PO SCH (07:44)
[2019-01-30] MEDS: TAMSULOSIN 0.4 MG CAP.ER.24H. PO SCH (07:44)
[2019-01-30] MEDS: FINASTERIDE 5 MG TABLET PO SCH (07:44)
[2019-01-30] MEDS: GABAPENTIN 100 MG CAPSULE. PO SCH ×3 (07:45→19:10)
[2019-01-30] MEDS: MULTIVITAMIN with MINERAL TABLET. PO SCH (07:45)
[2019-01-30] MEDS: ATENOLOL 50 MG TABLET PO SCH (07:45)
[2019-01-30] MEDS: ASPIRIN 325 MG TABLET PO SCH (07:45)
[2019-01-30] MEDS: clonazePAM 0.5 MG TABLET PO SCH ×3 (07:46→19:09)
[2019-01-30] MEDS: TIMOLOL 0.5% OPHTH SOLUTION 5ML BOTTLE. OD SCH ×2 (07:46→19:19)
[2019-01-30] MEDS: PILOCARPINE 1% OPHTH SOLUTION 15ML BOTTLE. OU SCH ×3 (07:46→19:19)
[2019-01-30] MEDS: DORZOLAMIDE 2% OPHTH SOLUTION 10ML BOTTLE. OU SCH ×3 (07:46→19:19)
[2019-01-30] MEDS: LANSOPRAZOLE 30 MG TAB.RAP.DR PO SCH (07:46)
[2019-01-30] MEDS: BRIMONIDINE 0.2% OPHTH SOLUTION 5ML BOTTLE. OU SCH ×2 (07:48→19:19)
[2019-01-30] MEDS: LEVOTHYROXINE 75 MCG TABLET PO SCH (07:48)
--- NOTE | 2019-01-30 12:52 | NUR ---
Pt slept in this morning. Pt compliant with cares, no agitation noted. Pt non compliant with medications, refusing to acknowledge this nurse or open his mouth. Pt's son here for visiting hours at lunch time and was able to help coax pt into taking crushed medications in chocolate pudding. Pt did have one episode of choking at lunch time. Pt's son would like staff to watch pt and if pt has anymore choking episodes, consult speech for swallow study.
--- NOTE | 2019-01-30 13:15 | NUR ---
Activity Therapy Assessment: Patient was sitting down in his wheelchair during the assessment. Patient was able to remember his past, family, but not current location. Patient was able to verbally express himself, he uses a wheel chair to ambulate and wears hearing devices. Patient will need help with most ADLs and one must speak loudly so he can hear. Initial Treatment Goals: Patient will increase recreation education and time management by participating in at least three activity (group/individual) sessions per week. Addendum: 02/19/19 at 0954 by DEANA KIMBROUGH ACT Goal changed 02/19/2019- Pt. will participate in at least three one on one Activity Therapy sessions before discharge.
[2019-01-30] MEDS ORDERED: TUBERCULIN PPD 5TUB.UNIT 0.1 ML TEST. ID ONE (14:45)
--- NOTE | 2019-01-30 15:36 | NUR ---
Patient sitting in wheelchair in day room at this time, calm and cooperative with care. Pt allowed nurse to give TB skin test to right forearm, patient tolerated well. Will reassess in two days. Patient compliant with 1400 eye medications.
[2019-01-30 15:51] VITALS: BP 147/67
--- NOTE | 2019-01-30 17:30 | NUR ---
Patient in seclusion room at this time, standing with wheelchair in front of him. Patient took wheelchair and pushed it across hallway at nurses. Two nurses assisted patient at sides and called for additional help. Patient assisted to tere onto floor, Patient now crawling around on floor. PRN clonazepam given via syringe with 3 staff members assisting patient. Nurse attempted to give 1400 medication multiple times even when daughter was with patient, patient continued to strike at staff and resisted meds. Patient wandering day room and taking napkins, water cups and anything in site and throwing items.
--- NOTE | 2019-01-30 18:10 | NUR ---
Patient remains in seclusion room at this time, states he is hungry and will eat something. Patient appears less agitation and more directable with staff.
--- NOTE | 2019-01-30 18:42 | NUR ---
Patient having difficulty swallowing foods, per daughter patient seems to be having more issues and coughing more when he eats. States that he has had to have EGD with dilation x2 in the past. Patient stated this evening that he feels like food is "stuck". Speech therapy consulted at this time.
[2019-01-30] MEDS: ATORVASTATIN CALCIUM 20 MG TABLET PO SCH (19:10)
[2019-01-30] MEDS: MIRTAZAPINE 7.5 MG TABLET. PO SCH (19:10)
[2019-01-30] MEDS: traZODone 50 MG TABLET. PO PRN (19:16)
[2019-01-30] MEDS: LATANOPROST 0.005% OPHTH SOLUTION 2.5ML BOTTLE. OU SCH (19:19)
--- NOTE | 2019-01-30 21:35 | NUR ---
Nursing Note The patient was compliant with his medication and took them whole. The patient was less suspicious this shift and was more appropriate with his interactions this shift. The patient is currently sleeping in his room.
--- NOTE | 2019-01-30 21:52 | PDOC ---
Exam Note: Scott Note: Please also refer to the separate dictated note~for this date of service dictated separately.~Patient seen individually. Discussed the patient with Nursing staff reviewed the chart.~Reviewed interim history and current functioning. Reviewed vital signs,~Labs/ Radiology~and current medications noted below. Continue current treatment with the changes noted in the dictated addendum note Assessment: Vital Signs: Vital Signs Date Time Temp Pulse Resp B/P (MAP) Pulse Ox O2 Delivery O2 Flow Rate FiO2 01/30/19 15:51 97.1 71 18 147/67 (93) 99 Room Air I&O Intake and Output 01/30/19 06:59 Intake Total 240 ml Balance 240 ml Intake Oral 240 ml # Voids 1 Current Medications: Meds: Current Medications Sodium Chloride 1,000 ml @ 1,000 mls/hr 1X ONCE IV Last administered on at 17:31; Start 01/26/19 at 17:30; Stop 01/26/19 at 18:29; Status DC Lorazepam (Ativan) 1 mg 1X ONCE IV Last administered on 01/26/19at 21:22; Start 01/26/19 at 21:15; Stop 01/26/19 at 21:23; Status DC Lorazepam (Ativan) 1 mg 1X ONCE IV Last administered on 01/26/19at 22:44; Start 01/26/19 at 22:30; Stop 01/26/19 at 22:32; Status DC Acetaminophen (Tylenol) 650 mg PRN Q6HRS PRN PO PAIN / TEMP; Start 01/27/19 at 00:00; Status Cancel Multi-Ingredient Ointment (Analgesic [place]) 1 edyta PRN QID PRN TP MUSCLE PAIN; Start 01/27/19 at 00:00 Al Hydroxide/Mg Hydroxide (Mylanta Plus Xs) 15 ml PRN AFTMEALHC PRN PO DYSPEPSIA; Start 01/27/19 at 00:00 Magnesium Hydroxide (Milk Of Magnesia) 2,400 mg PRN QHS PRN PO CONSTIPATION; Start 01/27/19 at 00:00 Clonazepam (KlonoPIN) 0.125 mg TID PO Last administered on 01/30/19at 19:09; Start 01/27/19 at 09:00 Paroxetine HCl (Paxil) 40 mg DAILY PO Last administered on 3/1/19at 07:44; Start 01/27/19 at 09:00 Trazodone HCl (Desyrel) 12.5 mg QHS PO ; Start 01/27/19 at 21:00; Stop 01/27/19 at 21:00; Status DC Olanzapine (ZyPREXA ZYDIS) 2.5 mg PRN Q2HR PRN PO PSYCHOSIS Last administered on 01/29/19 21:27; Start 01/27/19 at 01:00 Acetaminophen (Tylenol) 650 mg PRN QID PRN PO PAIN; Start 01/27/19 at 01:00 Albuterol Sulfate (Ventolin) 1 mg PRN Q6HRS PRN INH SHORTNESS OF BREATH; Start 01/27/19 at 01:00 Aspirin (Hira Aspirin) 325 mg DAILYWBKFT PO Last administered on 01/30/19 07: 45; Start 01/27/19 at 08:00 Clonidine HCl (Catapres) 0.1 mg PRN DAILY PRN PO HYPERTENSION, SEE COMMENTS; Start 01/27/19 at 01:00 Clopidogrel Bisulfate (Plavix) 75 mg DAILY PO Last administered on 01/30/19 07: 44; Start 01/27/19 at 09:00 Gabapentin (Neurontin) 100 mg BID94 PO Last administered on 01/30/19 16:29; Start 01/27/19 at 09:00 Gabapentin (Neurontin) 100 mg QHS PO Last administered on 01/30/19 19:10; Start 01/27/19 at 21:00 Levothyroxine Sodium (Synthroid) 75 mcg DAILY06 PO Last administered on 07:48; Start 01/27/19 at 06:00 Losartan Potassium (Cozaar) 50 mg DAILY PO Last administered on 01/27/19 13:26 ; Start 01/27/19 at 09:00; Stop 01/27/19 at 14:32; Status DC Tamsulosin HCl (Flomax) 0.4 mg DAILY PO Last administered on 01/30/19 07:44; Start 01/27/19 at 09:00 Multivitamins/ Minerals (I-Alis) 1 tab BID PO Last administered on 01/30/19 19: 10; Start 01/27/19 at 09:00 Allopurinol (Zyloprim) 150 mg DAILY PO Last administered on 01/30/19 07:44; Start 01/27/19 at 09:00 Non-Formulary Medication (Aloe Vera/ Collagen (Sensi-Care Perineal Cleanser)) 1 edyta BID TP ; Start 01/27/19 at 09:00; Stop 01/27/19 at 09:00; Status DC Atenolol (Tenormin) 100 mg DAILY PO Last administered on 01/30/19 07:45; Start 01/27/19 at 09:00 Atorvastatin Calcium (Lipitor) 40 mg HS PO Last administered on 01/30/19 19:10 ; Start 01/27/19 at 21:00 Brimonidine Tartrate (Alphagan) 1 drop BID OD ; Start 01/27/19 at 09:00; Stop at 12:36; Status DC Dorzolamide HCl (Trusopt) 1 drop BID OD ; Start 01/27/19 at 09:00; Stop at 12:39; Status DC Finasteride (Proscar) 5 mg DAILY PO Last administered on 01/30/19 07:44; Start 01/27/19 at 09:00 Folic Acid (Folic Acid) 1 mg DAILY PO Last administered on 01/30/19 07:44; Start 01/27/19 at 09:00 Hydrochlorothiazide (Microzide) 12.5 mg DAILY PO Last administered on at 13:27; Start 01/27/19 at 09:00; Stop 01/27/19 at 14:32; Status DC Lactobacillus Rhamnosus (Culturelle) 1 cap DAILY PO Last administered on 07:44; Start 01/27/19 at 09:00 Latanoprost (Xalatan) 1 drop QHS OU Last administered on 01/30/19 19:19; Start 01/27/19 at 21:00 Multivitamins/ Calcium (Thera-M Plus) 1 tab DAILY PO Last administered on 07:45; Start 01/27/19 at 09:00 Pantoprazole Sodium (Protonix) 40 mg DAILYAC PO Last administered on 01/28/19at 10:03; Start 01/27/19 at 07:30; Stop 01/29/19 at 11:24; Status DC Pilocarpine HCl (Pilocar) 1 drop TID OD ; Start 01/27/19 at 09:00; Stop at 12:38; Status DC Timolol Maleate (Timoptic 0.5% Ophth) 1 drop BID OD Last administered on 19:19; Start 01/27/19 at 07:15 Brimonidine Tartrate (Alphagan) 1 drop BID OU Last administered on 01/30/19 19: 19; Start 01/27/19 at 12:36 Pilocarpine HCl (Pilocar) 1 drop TID OU Last administered on 01/30/19 19:19; Start 01/27/19 at 12:38 Dorzolamide HCl (Trusopt) 1 drop TID OU Last administered on 01/30/19 19:19; Start 01/27/19 at 14:00 Olanzapine (ZyPREXA ZYDIS) 2.5 mg PRN Q2HR PRN PO PSYCHOSIS; Start 01/27/19 at 17:30; Stop 01/29/19 at 17:13; Status DC Trazodone HCl (Desyrel) 50 mg PRN QHS PRN PO INSOMNIA, MAY REPEAT X1 Last administered on 01/30/19at 19:16; Start 01/27/19 at 17:30 Mirtazapine (Remeron) 7.5 mg QHS PO Last administered on 01/30/19at 19:10; Start 01/28/19 at 21:00 Lansoprazole (Prevacid) 30 mg DAILYAC PO Last administered on 01/30/19at 07:46; Start 01/30/19 at 07:30 Tuberculin PPD (Tubersol) 0.1 ml 1X ONCE ID Last administered on 01/30/19at 15: 14; Start 01/30/19 at 14:45; Stop 01/30/19 at 14:52; Status DC Active Scripts Active Reported Sensi-Care Perineal Cleanser (Aloe Vera/Collagen) 118 Ml Solution 1 Edyta TP BID Paroxetine Hcl 40 Mg Tablet 40 Mg PO DAILY Trazodone Hcl 50 Mg Tablet 12.5 Mg PO QHS Dorzolamide Hcl 10 Ml Drops 1 Drp OD BID Timoptic (Timolol Maleate) 10 Ml Drops 1 Drp OD BID Pilocarpine Hcl 5 Mg Tablet 1 Drop OD TID Latanoprost 2.5 Ml Drops 1 Drop OU QHS Alphagan P (Brimonidine Tartrate) 5 Ml Drops 1 Drop OD BID Pantoprazole Sodium 40 Mg Tablet.dr 40 Mg PO DAILY Cozaar (Losartan Potassium) 50 Mg Tablet 50 Mg PO DAILY Levothyroxine Sodium 75 Mcg Tablet 75 Mcg PO DAILYAC Culturelle (Lactobacillus Rhamnosus Gg) 1 Each Capsule 1 Each PO DAILY Gabapentin (Gabapentin) 100 Mg Capsule 100 Mg PO QHS Gabapentin (Gabapentin) 100 Mg Capsule 100 Mg PO BID Finasteride 5 Mg Tablet 5 Mg PO DAILY Clonidine Hcl 0.1 Mg Tablet 0.1 Mg PO PRN DAILY PRN Lipitor (Atorvastatin Calcium) 40 Mg Tablet 40 Mg PO DAILY Atenolol 100 Mg Tablet 100 Mg PO DAILY Allopurinol 300 Mg Tablet 150 Mg PO DAILY Proair Hfa Inhaler (Albuterol Sulfate) 8.5 Gm Hfa.aer.ad 1 Puff INH PRN Q6HRS PRN Multivitamins (Multivitamin) 1 Each Tablet 1 Each PO DAILY Aspirin 325 Mg Tablet 325 Mg PO DAILY Folic Acid 1 Mg Tablet 1 Mg PO DAILY Clopidogrel (Clopidogrel Bisulfate) 75 Mg Tablet 75 Mg PO DAILY Macuvite Eye Care Tablet (A/C/E/Zinc Ox/Cupric Ox/Lutein) 1 Each Tablet 1 Each PO BID Tylenol (Acetaminophen) 325 Mg Tablet 650 Mg PO PRN QID PRN Clonazepam 0.125 Mg Tab.rapdis 0.125 Mg PO TID Tamsulosin Hcl 0.4 Mg Cap.er.24h 0.4 Mg PO DAILY Hydrochlorothiazide Tablet (Hydrochlorothiazide) 12.5 Mg Tablet 12.5 Mg PO DAILY I have reviewed the current psychotropics carefully including drug interactions. Risk benefit ratio favors no change other than as noted in my dictated progress note. Diagnosis: Problems: (1) Medical clearance for psychiatric admission (2) Anxiety disorder (3) Dementia with behavioral disturbance (4) Dementia, vascular, with delusions (5) Dementia, vascular, with depression (6) Dementia in Alzheimer's disease with delusions (7) Dementia in Alzheimer's disease with depression (8) Impulse control disorder PAOLO THOMAS MD Jan 30, 2019 21:52
--- NOTE | 2019-01-30 22:55 | PN ---
DATE: 01/28/2019 This is a late entry for 01/28/2019 covers elements not covered in my initial note. SUBJECTIVE: I met with the patient in the evening. The patient slept 2-1/2 hours previous night, has been irritable, paranoid, quite impulsive, looking for his mother. REVIEW OF SYSTEMS: Ambulation impaired. No CV, , pulmonary, eye system symptoms on review. Reliability poor. MENTAL STATUS EXAM: Oriented to himself, at times situation. Speech is moderate latency, often responses monosyllabic. Abstraction fair, computation impaired, language function intact. Mood and affect somewhat withdrawn, quite confused. This has been a rapid decline for him in the last 2 months or so. LABORATORY DATA: Reviewed. IMPRESSION: Unchanged from initial note. PLAN: Start Remeron 7.5 mg at bedtime to help with his insomnia. May taper the Paxil due to central anticholinergic side effects. We will consider tapering the Klonopin, but we will confer with the family before that. Certainly benzodiazepines could worsen his confusion, but we will have to see how he has responded to it in the past and then decide. MAN Modesta THOMAS MD DR: JOYCE/krzysztof JOB#: [id number] / [id number]
--- NOTE | 2019-01-30 23:10 | PN ---
DATE: 01/29/2019 PSYCHIATRIC PROGRESS NOTE This late entry 01/29/2019 covers elements not covered in my initial note. SUBJECTIVE: I met with the patient in the evening and staffed at a treatment team meeting with the entire team earlier in the day with the patient's son, [place] tee. We reviewed his history at length. Just about 2 months back, the patient was functioning quite well. He let the family prayer and came up with the extemporary prayer, which was very relevant and appropriate and since then he has had a marked decline. CT head in the past at [facility] was non-confirmatory of any CVA. His sometime back and then he moved in with his son. He slept 3-1/2 hours previous night, restless. Appetite 75%, agitated at times. Vision is poor. Impaired ambulation. REVIEW OF SYSTEMS: No CV, , pulmonary, ENT system symptoms on review, somewhat hard of hearing. MENTAL STATUS EXAM: Oriented to himself. Insight, judgment, recent and remote memory, attention, concentration, fund of knowledge poor, consistent with his diagnosis. IMPRESSION: Major neurocognitive disorder, Alzheimer, vascular with delusion, depression, behavioral disturbance, anxiety disorder, unspecified; impulse control disorder, unspecified. Rest unchanged. PLAN: We will consider tapering the Paxil, but conferred with the family and I have discussed this with the son at length. The son is convinced this Klonopin helped him significantly. We leave it unchanged, but gradually taper the Paxil. Repeat a CT head, get the past CT head results as well to compare by our radiologist. Rest unchanged. MAN Modesta THOMAS MD DR: JOYCE/krzysztof JOB#: [id number] / [id number]
--- NOTE | 2019-01-31 00:32 | NUR ---
Nursing Note The patient received PRN Trazodone with HS medications.
[2019-01-31 05:32] VITALS: BP 118/76
[2019-01-31] MEDS: LEVOTHYROXINE 75 MCG TABLET PO SCH (06:03)
[2019-01-31] MEDS: ASPIRIN 325 MG TABLET PO SCH (08:03)
[2019-01-31] MEDS: TAMSULOSIN 0.4 MG CAP.ER.24H. PO SCH (08:04)
[2019-01-31] MEDS: PARoxetine 20 MG TABLET PO SCH (08:04)
[2019-01-31] MEDS: MULTIVITAMIN I-VITE TABLET. PO SCH ×2 (08:04→20:23)
[2019-01-31] MEDS: LACTOBACILLUS RHAMNOSUS GG 1 CAPSULE. PO SCH (08:04)
[2019-01-31] MEDS: ALLOPURINOL 100 MG TABLET. PO SCH (08:04)
[2019-01-31] MEDS: LANSOPRAZOLE 30 MG TAB.RAP.DR PO SCH (08:04)
[2019-01-31] MEDS: FINASTERIDE 5 MG TABLET PO SCH (08:04)
[2019-01-31] MEDS: CLOPIDOGREL BISULFATE 75 MG TABLET PO SCH (08:04)
[2019-01-31] MEDS: MULTIVITAMIN with MINERAL TABLET. PO SCH (08:05)
[2019-01-31] MEDS: ATENOLOL 50 MG TABLET PO SCH (08:05)
[2019-01-31] MEDS: FOLIC ACID 1 MG TABLET PO SCH (08:05)
[2019-01-31] MEDS: clonazePAM 0.5 MG TABLET PO SCH ×5 (08:07→19:55)
[2019-01-31] MEDS: GABAPENTIN 100 MG CAPSULE. PO SCH ×4 (08:07→20:26)
[2019-01-31] MEDS: TIMOLOL 0.5% OPHTH SOLUTION 5ML BOTTLE. OD SCH ×3 (08:08→20:23)
[2019-01-31] MEDS: DORZOLAMIDE 2% OPHTH SOLUTION 10ML BOTTLE. OU SCH ×5 (08:08→20:23)
[2019-01-31] MEDS: PILOCARPINE 1% OPHTH SOLUTION 15ML BOTTLE. OU SCH ×5 (08:09→20:23)
[2019-01-31] MEDS: BRIMONIDINE 0.2% OPHTH SOLUTION 5ML BOTTLE. OU SCH ×3 (08:09→20:23)
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
[2019-01-31 15:34] VITALS: BP 118/54
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
[2019-01-31] MEDS: LIDOCAINE (700MG/PATCH) PATCH. TD SCH (18:00)
[2019-01-31] MEDS: MIRTAZAPINE 7.5 MG TABLET. PO SCH (19:55)
[2019-01-31] MEDS: ATORVASTATIN CALCIUM 20 MG TABLET PO SCH (20:23)
[2019-01-31] MEDS: LATANOPROST 0.005% OPHTH SOLUTION 2.5ML BOTTLE. OU SCH (20:23)
--- NOTE | 2019-01-31 21:55 | PDOC ---
Exam Note: Scott Note: Please also refer to the separate dictated note~for this date of service dictated separately.~Patient seen individually. Discussed the patient with Nursing staff reviewed the chart.~Reviewed interim history and current functioning. Reviewed vital signs,~Labs/ Radiology~and current medications noted below. Continue current treatment with the changes noted in the dictated addendum note Assessment: Vital Signs: Vital Signs Date Time Temp Pulse Resp B/P (MAP) Pulse Ox O2 Delivery O2 Flow Rate FiO2 01/31/19 15:34 97.3 88 15 118/54 (75) 99 01/30/19 15:51 Room Air I&O Intake and Output 01/31/19 06:59 Intake Total 240 ml Balance 240 ml Intake Oral 240 ml Current Medications: Meds: Current Medications Sodium Chloride 1,000 ml @ 1,000 mls/hr 1X ONCE IV Last administered on 17:31; Start 01/26/19 at 17:30; Stop 01/26/19 at 18:29; Status DC Lorazepam (Ativan) 1 mg 1X ONCE IV Last administered on 01/26/19at 21:22; Start 01/26/19 at 21:15; Stop 01/26/19 at 21:23; Status DC Lorazepam (Ativan) 1 mg 1X ONCE IV Last administered on 01/26/19at 22:44; Start 01/26/19 at 22:30; Stop 01/26/19 at 22:32; Status DC Acetaminophen (Tylenol) 650 mg PRN Q6HRS PRN PO PAIN / TEMP; Start 01/27/19 at 00:00; Status Cancel Multi-Ingredient Ointment (Analgesic [place]) 1 edyta PRN QID PRN TP MUSCLE PAIN; Start 01/27/19 at 00:00 Al Hydroxide/Mg Hydroxide (Mylanta Plus Xs) 15 ml PRN AFTMEALHC PRN PO DYSPEPSIA; Start 01/27/19 at 00:00 Magnesium Hydroxide (Milk Of Magnesia) 2,400 mg PRN QHS PRN PO CONSTIPATION; Start 01/27/19 at 00:00 Clonazepam (KlonoPIN) 0.125 mg TID PO Last administered on 01/31/19at 19:55; Start 01/27/19 at 09:00 Paroxetine HCl (Paxil) 40 mg DAILY PO Last administered on 01/31/19 08:04; Start 01/27/19 at 09:00 Trazodone HCl (Desyrel) 12.5 mg QHS PO ; Start 01/27/19 at 21:00; Stop 01/27/19 at 21:00; Status DC Olanzapine (ZyPREXA ZYDIS) 2.5 mg PRN Q2HR PRN PO PSYCHOSIS Last administered on 01/31/19 08:47; Start 01/27/19 at 01:00; Stop 01/31/19 at 20:14; Status DC Acetaminophen (Tylenol) 650 mg PRN QID PRN PO PAIN; Start 01/27/19 at 01:00 Albuterol Sulfate (Ventolin) 1 mg PRN Q6HRS PRN INH SHORTNESS OF BREATH; Start 01/27/19 at 01:00 Aspirin (Hira Aspirin) 325 mg DAILYWBKFT PO Last administered on 01/31/19 08: 03; Start 01/27/19 at 08:00 Clonidine HCl (Catapres) 0.1 mg PRN DAILY PRN PO HYPERTENSION, SEE COMMENTS; Start 01/27/19 at 01:00 Clopidogrel Bisulfate (Plavix) 75 mg DAILY PO Last administered on 01/31/19 08: 04; Start 01/27/19 at 09:00 Gabapentin (Neurontin) 100 mg BID94 PO Last administered on 01/31/19 12:30; Start 01/27/19 at 09:00 Gabapentin (Neurontin) 100 mg QHS PO Last administered on 01/30/19 19:10; Start 01/27/19 at 21:00 Levothyroxine Sodium (Synthroid) 75 mcg DAILY06 PO Last administered on 06:03; Start 01/27/19 at 06:00 Losartan Potassium (Cozaar) 50 mg DAILY PO Last administered on 01/27/19 13:26 ; Start 01/27/19 at 09:00; Stop 01/27/19 at 14:32; Status DC Tamsulosin HCl (Flomax) 0.4 mg DAILY PO Last administered on 01/31/19 08:04; Start 01/27/19 at 09:00 Multivitamins/ Minerals (I-Alis) 1 tab BID PO Last administered on 01/31/19 08: 04; Start 01/27/19 at 09:00 Allopurinol (Zyloprim) 150 mg DAILY PO Last administered on 01/31/19 08:04; Start 01/27/19 at 09:00 Non-Formulary Medication (Aloe Vera/ Collagen (Sensi-Care Perineal Cleanser)) 1 edyta BID TP ; Start 01/27/19 at 09:00; Stop 01/27/19 at 09:00; Status DC Atenolol (Tenormin) 100 mg DAILY PO Last administered on 01/31/19 08:05; Start 01/27/19 at 09:00 Atorvastatin Calcium (Lipitor) 40 mg HS PO Last administered on 01/30/19 19:10 ; Start 01/27/19 at 21:00 Brimonidine Tartrate (Alphagan) 1 drop BID OD ; Start 01/27/19 at 09:00; Stop at 12:36; Status DC Dorzolamide HCl (Trusopt) 1 drop BID OD ; Start 01/27/19 at 09:00; Stop at 12:39; Status DC Finasteride (Proscar) 5 mg DAILY PO Last administered on 01/31/19 08:04; Start 01/27/19 at 09:00 Folic Acid (Folic Acid) 1 mg DAILY PO Last administered on 01/31/19 08:05; Start 01/27/19 at 09:00 Hydrochlorothiazide (Microzide) 12.5 mg DAILY PO Last administered on 13:27; Start 01/27/19 at 09:00; Stop 01/27/19 at 14:32; Status DC Lactobacillus Rhamnosus (Culturelle) 1 cap DAILY PO Last administered on 08:04; Start 01/27/19 at 09:00 Latanoprost (Xalatan) 1 drop QHS OU Last administered on 01/30/19 19:19; Start 01/27/19 at 21:00 Multivitamins/ Calcium (Thera-M Plus) 1 tab DAILY PO Last administered on 08:05; Start 01/27/19 at 09:00 Pantoprazole Sodium (Protonix) 40 mg DAILYAC PO Last administered on 01/28/19at 10:03; Start 01/27/19 at 07:30; Stop 01/29/19 at 11:24; Status DC Pilocarpine HCl (Pilocar) 1 drop TID OD ; Start 01/27/19 at 09:00; Stop at 12:38; Status DC Timolol Maleate (Timoptic 0.5% Ophth) 1 drop BID OD Last administered on 19:19; Start 01/27/19 at 07:15 Brimonidine Tartrate (Alphagan) 1 drop BID OU Last administered on 01/30/19 19: 19; Start 01/27/19 at 12:36 Pilocarpine HCl (Pilocar) 1 drop TID OU Last administered on 01/30/19 19:19; Start 01/27/19 at 12:38 Dorzolamide HCl (Trusopt) 1 drop TID OU Last administered on 01/30/19 19:19; Start 01/27/19 at 14:00 Olanzapine (ZyPREXA ZYDIS) 2.5 mg PRN Q2HR PRN PO PSYCHOSIS; Start 01/27/19 at 17:30; Stop 01/29/19 at 17:13; Status DC Trazodone HCl (Desyrel) 50 mg PRN QHS PRN PO INSOMNIA, MAY REPEAT X1 Last administered on 01/30/19at 19:16; Start 01/27/19 at 17:30 Mirtazapine (Remeron) 7.5 mg QHS PO Last administered on 01/31/19at 19:55; Start 01/28/19 at 21:00 Lansoprazole (Prevacid) 30 mg DAILYAC PO Last administered on 01/31/19at 08:04; Start 01/30/19 at 07:30 Tuberculin PPD (Tubersol) 0.1 ml 1X ONCE ID Last administered on 01/30/19at 15: 14; Start 01/30/19 at 14:45; Stop 01/30/19 at 14:52; Status DC Lidocaine (Lidoderm) 1 patch DAILY TD Last administered on 01/31/19at 18:00; Start 01/31/19 at 18:00 Miscellaneous (Lidoderm Patch Removal) 1 ea QHS MC ; Start 02/01/19 at 03:00 Olanzapine (ZyPREXA ZYDIS) 5 mg PRN Q2HR PRN PO PSYCHOSIS; Start 01/31/19 at 20: 15 Active Scripts Active Reported Sensi-Care Perineal Cleanser (Aloe Vera/Collagen) 118 Ml Solution 1 Edyta TP BID Paroxetine Hcl 40 Mg Tablet 40 Mg PO DAILY Trazodone Hcl 50 Mg Tablet 12.5 Mg PO QHS Dorzolamide Hcl 10 Ml Drops 1 Drp OD BID Timoptic (Timolol Maleate) 10 Ml Drops 1 Drp OD BID Pilocarpine Hcl 5 Mg Tablet 1 Drop OD TID Latanoprost 2.5 Ml Drops 1 Drop OU QHS Alphagan P (Brimonidine Tartrate) 5 Ml Drops 1 Drop OD BID Pantoprazole Sodium 40 Mg Tablet.dr 40 Mg PO DAILY Cozaar (Losartan Potassium) 50 Mg Tablet 50 Mg PO DAILY Levothyroxine Sodium 75 Mcg Tablet 75 Mcg PO DAILYAC Culturelle (Lactobacillus Rhamnosus Gg) 1 Each Capsule 1 Each PO DAILY Gabapentin (Gabapentin) 100 Mg Capsule 100 Mg PO QHS Gabapentin (Gabapentin) 100 Mg Capsule 100 Mg PO BID Finasteride 5 Mg Tablet 5 Mg PO DAILY Clonidine Hcl 0.1 Mg Tablet 0.1 Mg PO PRN DAILY PRN Lipitor (Atorvastatin Calcium) 40 Mg Tablet 40 Mg PO DAILY Atenolol 100 Mg Tablet 100 Mg PO DAILY Allopurinol 300 Mg Tablet 150 Mg PO DAILY Proair Hfa Inhaler (Albuterol Sulfate) 8.5 Gm Hfa.aer.ad 1 Puff INH PRN Q6HRS PRN Multivitamins (Multivitamin) 1 Each Tablet 1 Each PO DAILY Aspirin 325 Mg Tablet 325 Mg PO DAILY Folic Acid 1 Mg Tablet 1 Mg PO DAILY Clopidogrel (Clopidogrel Bisulfate) 75 Mg Tablet 75 Mg PO DAILY Macuvite Eye Care Tablet (A/C/E/Zinc Ox/Cupric Ox/Lutein) 1 Each Tablet 1 Each PO BID Tylenol (Acetaminophen) 325 Mg Tablet 650 Mg PO PRN QID PRN Clonazepam 0.125 Mg Tab.rapdis 0.125 Mg PO TID Tamsulosin Hcl 0.4 Mg Cap.er.24h 0.4 Mg PO DAILY Hydrochlorothiazide Tablet (Hydrochlorothiazide) 12.5 Mg Tablet 12.5 Mg PO DAILY I have reviewed the current psychotropics carefully including drug interactions. Risk benefit ratio favors no change other than as noted in my dictated progress note. Diagnosis: Problems: (1) Medical clearance for psychiatric admission (2) Anxiety disorder (3) Dementia with behavioral disturbance (4) Dementia, vascular, with delusions (5) Dementia, vascular, with depression (6) Dementia in Alzheimer's disease with delusions (7) Dementia in Alzheimer's disease with depression (8) Impulse control disorder PAOLO THOMAS MD Jan 31, 2019 21:55
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
[2019-02-01] MEDS: traZODone 50 MG TABLET. PO PRN ×3 (00:51→21:48)
--- NOTE | 2019-02-01 00:56 | NUR ---
Pt woke up and stripped off his gown. PRN Trazodone administered. Pt remains on mat in quiet room for safety.
[2019-02-01] MEDS: PATCH REMOVAL. MC SCH ×2 (03:00→21:00)
[2019-02-01 05:55] VITALS: BP 96/59
[2019-02-01] MEDS: LEVOTHYROXINE 75 MCG TABLET PO SCH (06:23)
[2019-02-01] MEDS: GABAPENTIN 100 MG CAPSULE. PO SCH ×3 (08:25→19:55)
[2019-02-01] MEDS: TAMSULOSIN 0.4 MG CAP.ER.24H. PO SCH (08:26)
[2019-02-01] MEDS: ATENOLOL 50 MG TABLET PO SCH (08:26)
[2019-02-01] MEDS: ALLOPURINOL 100 MG TABLET. PO SCH (08:26)
[2019-02-01] MEDS: MULTIVITAMIN I-VITE TABLET. PO SCH ×2 (08:26→21:00)
[2019-02-01] MEDS: FOLIC ACID 1 MG TABLET PO SCH (08:26)
[2019-02-01] MEDS: MULTIVITAMIN with MINERAL TABLET. PO SCH (08:26)
[2019-02-01] MEDS: LACTOBACILLUS RHAMNOSUS GG 1 CAPSULE. PO SCH (08:26)
[2019-02-01] MEDS: CLOPIDOGREL BISULFATE 75 MG TABLET PO SCH (08:26)
[2019-02-01] MEDS: FINASTERIDE 5 MG TABLET PO SCH (08:26)
[2019-02-01] MEDS: clonazePAM 0.5 MG TABLET PO SCH ×3 (08:27→19:57)
[2019-02-01] MEDS: PARoxetine 20 MG TABLET PO SCH (08:27)
[2019-02-01] MEDS: ASPIRIN 325 MG TABLET PO SCH (08:27)
[2019-02-01] MEDS: PILOCARPINE 1% OPHTH SOLUTION 15ML BOTTLE. OU SCH ×3 (08:27→21:00)
[2019-02-01] MEDS: TIMOLOL 0.5% OPHTH SOLUTION 5ML BOTTLE. OD SCH ×2 (08:27→21:00)
[2019-02-01] MEDS: BRIMONIDINE 0.2% OPHTH SOLUTION 5ML BOTTLE. OU SCH ×2 (08:27→21:00)
[2019-02-01] MEDS: DORZOLAMIDE 2% OPHTH SOLUTION 10ML BOTTLE. OU SCH ×3 (08:27→21:00)
[2019-02-01] MEDS: LANSOPRAZOLE 30 MG TAB.RAP.DR PO SCH (08:27)
[2019-02-01] MEDS: LIDOCAINE (700MG/PATCH) PATCH. TD SCH (09:00)
--- NOTE | 2019-02-01 10:55 | NUR ---
Behavior Intervention Response and Plan: BIRP Note: Behavior: Assumed Care of patient, patient located in Dining Room at shift change. Patient exhibited the following behavior Resistive, Non Compliant with Meds, Irritable. Brief assessment on rounds of vital signs, medication needs, lab studies, and pain. Treatment plan problems . Intervention: Patient assessed and the following interventions initiated safety checks 15 Minute Checks Personal Alarm in place , Cognitive Assessment , Head to toe Assessment. Response: After interactions and interventions patient responded in the following manner, Disorganized , Agitated ,Non Compliant with Meds. Continue to assess behaviors and condition will continue to monitor throughout the shift as needed. Patient educated on ADL's, and hand hygiene. Plan: Continue to monitor Master Treatment Plan for patient's progress toward short term goals of Decreased Agitation, Medication Compliance, retirement goals to return to previous living setting vs placement. Continue to assess patient for changes in above assessment. Monitor for medication needs, pain, and safety concerns. Hourly rounding performed to ensure safe environment.
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
--- NOTE | 2019-02-01 13:22 | NUR ---
Pt son wanted patient to have his lorazepam before he leaves because patient takes his meds better when the family is present and son was getting ready to leave for the day. Spoke with charge Hermelinda who stated ok to do so being that med is scheduled and can have 1 hour before or 1 hour after. Family wanted to speak to Dr Francois about medications which Dr Francois spoke with them.
--- NOTE | 2019-02-01 13:43 | NUR ---
Pt son wanted to speak with Dr Francois regarding stopping some of the patient medications. New orders effective 02/02/19 Aspirin 325 [id number] daily, Discontinue folic acid, and multi vitamin
--- NOTE | 2019-02-01 14:15 | NUR ---
Pt venous doppler ultrasound of left lower extremity negative of dvt but still has edema Dr. Francois aware.
--- NOTE | 2019-02-01 15:04 | NUR ---
Pt was doing well in the day room with other patients when son and daughter in law left, then patient started getting up out of his chair and when attempting to assist patient back into his chair he became combative which he was taken into the quiet room, he would not stay in the quiet room so we assisted patient into the [address] and closed the quiet room doors. Will continue to monitor patient.
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
[2019-02-01] MEDS: MIRTAZAPINE 15 MG TABLET PO SCH (19:57)
[2019-02-01] MEDS: LATANOPROST 0.005% OPHTH SOLUTION 2.5ML BOTTLE. OU SCH (21:00)
[2019-02-01] MEDS: ATORVASTATIN CALCIUM 20 MG TABLET PO SCH (21:00)
--- NOTE | 2019-02-01 22:11 | PN ---
DATE: 01/30/2019 PSYCHIATRIC PROGRESS NOTE This late entry 01/30/2019 covers elements not covered in my initial note. SUBJECTIVE: I met with the patient in the evening. The patient slept 5-1/4 hours, then 3 hours in the morning, had a better day; took his meds when his son, Chino, visited. He is roaming all around the unit in his wheelchair. REVIEW OF SYSTEMS: Ambulation impaired. No CV, , pulmonary, eye, ENT system symptoms on review. MENTAL STATUS EXAM: Oriented to himself. Insight, judgment, recent and remote memory, attention, concentration, fund of knowledge poor, consistent with his diagnosis mentioned in my initial note. PLAN: We will taper the patient's Paxil from 40 mg a day down to 30 mg a day for 5 days, then 20 mg a day thereafter. Rest unchanged. MAN Modesta THOMAS MD DR: JOYCE/krzysztof JOB#: [id number] / [id number]
--- NOTE | 2019-02-01 22:42 | PDOC ---
Exam Note: Scott Note: Please also refer to the separate dictated note~for this date of service dictated separately.~Patient seen individually. Discussed the patient with Nursing staff reviewed the chart.~Reviewed interim history and current functioning. Reviewed vital signs,~Labs/ Radiology~and current medications noted below. Continue current treatment with the changes noted in the dictated addendum note Assessment: Vital Signs: Vital Signs Date Time Temp Pulse Resp B/P (MAP) Pulse Ox O2 Delivery O2 Flow Rate FiO2 02/01/19 08:26 68 134/90 02/01/19 05:55 97.7 18 97 01/30/19 15:51 Room Air I&O Intake and Output 02/01/19 07:00 Intake Total 365 ml Balance 365 ml Intake Oral 365 ml Current Medications: Meds: Current Medications Sodium Chloride 1,000 ml @ 1,000 mls/hr 1X ONCE IV Last administered on 17:31; Start 01/26/19 at 17:30; Stop 01/26/19 at 18:29; Status DC Lorazepam (Ativan) 1 mg 1X ONCE IV Last administered on 01/26/19at 21:22; Start 01/26/19 at 21:15; Stop 01/26/19 at 21:23; Status DC Lorazepam (Ativan) 1 mg 1X ONCE IV Last administered on 01/26/19at 22:44; Start 01/26/19 at 22:30; Stop 01/26/19 at 22:32; Status DC Acetaminophen (Tylenol) 650 mg PRN Q6HRS PRN PO PAIN / TEMP; Start 01/27/19 at 00:00; Status Cancel Multi-Ingredient Ointment (Analgesic [place]) 1 edyta PRN QID PRN TP MUSCLE PAIN; Start 01/27/19 at 00:00 Al Hydroxide/Mg Hydroxide (Mylanta Plus Xs) 15 ml PRN AFTMEALHC PRN PO DYSPEPSIA; Start 01/27/19 at 00:00 Magnesium Hydroxide (Milk Of Magnesia) 2,400 mg PRN QHS PRN PO CONSTIPATION; Start 01/27/19 at 00:00 Clonazepam (KlonoPIN) 0.125 mg TID PO Last administered on 02/01/19at 19:57; Start 01/27/19 at 09:00 Paroxetine HCl (Paxil) 40 mg DAILY PO Last administered on 02/01/19 08:27; Start 01/27/19 at 09:00; Stop 02/01/19 at 18:49; Status DC Trazodone HCl (Desyrel) 12.5 mg QHS PO ; Start 01/27/19 at 21:00; Stop 01/27/19 at 21:00; Status DC Olanzapine (ZyPREXA ZYDIS) 2.5 mg PRN Q2HR PRN PO PSYCHOSIS Last administered on 01/31/19 08:47; Start 01/27/19 at 01:00; Stop 01/31/19 at 20:14; Status DC Acetaminophen (Tylenol) 650 mg PRN QID PRN PO PAIN; Start 01/27/19 at 01:00 Albuterol Sulfate (Ventolin) 1 mg PRN Q6HRS PRN INH SHORTNESS OF BREATH; Start 01/27/19 at 01:00 Aspirin (Hira Aspirin) 325 mg DAILYWBKFT PO Last administered on 02/01/19 08: 27; Start 01/27/19 at 08:00; Stop 02/01/19 at 13:38; Status DC Clonidine HCl (Catapres) 0.1 mg PRN DAILY PRN PO HYPERTENSION, SEE COMMENTS; Start 01/27/19 at 01:00 Clopidogrel Bisulfate (Plavix) 75 mg DAILY PO Last administered on 02/01/19 08: 26; Start 01/27/19 at 09:00 Gabapentin (Neurontin) 100 mg BID94 PO Last administered on 02/01/19 16:29; Start 01/27/19 at 09:00 Gabapentin (Neurontin) 100 mg QHS PO Last administered on 02/01/19 19:55; Start 01/27/19 at 21:00 Levothyroxine Sodium (Synthroid) 75 mcg DAILY06 PO Last administered on 06:23; Start 01/27/19 at 06:00 Losartan Potassium (Cozaar) 50 mg DAILY PO Last administered on 01/27/19 13:26 ; Start 01/27/19 at 09:00; Stop 01/27/19 at 14:32; Status DC Tamsulosin HCl (Flomax) 0.4 mg DAILY PO Last administered on 02/01/19 08:26; Start 01/27/19 at 09:00 Multivitamins/ Minerals (I-Alis) 1 tab BID PO Last administered on 02/01/19 08: 26; Start 01/27/19 at 09:00 Allopurinol (Zyloprim) 150 mg DAILY PO Last administered on 02/01/19 08:26; Start 01/27/19 at 09:00 Non-Formulary Medication (Aloe Vera/ Collagen (Sensi-Care Perineal Cleanser)) 1 edyta BID TP ; Start 01/27/19 at 09:00; Stop 01/27/19 at 09:00; Status DC Atenolol (Tenormin) 100 mg DAILY PO Last administered on 02/01/19 08:26; Start 01/27/19 at 09:00 Atorvastatin Calcium (Lipitor) 40 mg HS PO Last administered on 01/30/19 19:10 ; Start 01/27/19 at 21:00 Brimonidine Tartrate (Alphagan) 1 drop BID OD ; Start 01/27/19 at 09:00; Stop at 12:36; Status DC Dorzolamide HCl (Trusopt) 1 drop BID OD ; Start 01/27/19 at 09:00; Stop at 12:39; Status DC Finasteride (Proscar) 5 mg DAILY PO Last administered on 02/01/19 08:26; Start 01/27/19 at 09:00 Folic Acid (Folic Acid) 1 mg DAILY PO Last administered on 02/01/19 08:26; Start 01/27/19 at 09:00; Stop 02/01/19 at 13:38; Status DC Hydrochlorothiazide (Microzide) 12.5 mg DAILY PO Last administered on 13:27; Start 01/27/19 at 09:00; Stop 01/27/19 at 14:32; Status DC Lactobacillus Rhamnosus (Culturelle) 1 cap DAILY PO Last administered on 08:26; Start 01/27/19 at 09:00 Latanoprost (Xalatan) 1 drop QHS OU Last administered on 01/30/19 19:19; Start 01/27/19 at 21:00 Multivitamins/ Calcium (Thera-M Plus) 1 tab DAILY PO Last administered on 08:26; Start 01/27/19 at 09:00; Stop 02/01/19 at 13:38; Status DC Pantoprazole Sodium (Protonix) 40 mg DAILYAC PO Last administered on 01/28/19 10:03; Start 01/27/19 at 07:30; Stop 01/29/19 at 11:24; Status DC Pilocarpine HCl (Pilocar) 1 drop TID OD ; Start 01/27/19 at 09:00; Stop at 12:38; Status DC Timolol Maleate (Timoptic 0.5% Ophth) 1 drop BID OD Last administered on 08:27; Start 01/27/19 at 07:15 Brimonidine Tartrate (Alphagan) 1 drop BID OU Last administered on 02/01/19 08: 27; Start 01/27/19 at 12:36 Pilocarpine HCl (Pilocar) 1 drop TID OU Last administered on 02/01/19 14:00; Start 01/27/19 at 12:38 Dorzolamide HCl (Trusopt) 1 drop TID OU Last administered on 02/01/19 14:00; Start 01/27/19 at 14:00 Olanzapine (ZyPREXA ZYDIS) 2.5 mg PRN Q2HR PRN PO PSYCHOSIS; Start 01/27/19 at 17:30; Stop 01/29/19 at 17:13; Status DC Trazodone HCl (Desyrel) 50 mg PRN QHS PRN PO INSOMNIA, MAY REPEAT X1 Last administered on 02/01/19 21:48; Start 01/27/19 at 17:30 Mirtazapine (Remeron) 7.5 mg QHS PO Last administered on 01/31/19 19:55; Start 01/28/19 at 21:00; Stop 02/01/19 at 18:50; Status DC Lansoprazole (Prevacid) 30 mg DAILYAC PO Last administered on 02/01/19 08:27; Start 01/30/19 at 07:30 Tuberculin PPD (Tubersol) 0.1 ml 1X ONCE ID Last administered on 01/30/19 15: 14; Start 01/30/19 at 14:45; Stop 01/30/19 at 14:52; Status DC Lidocaine (Lidoderm) 1 patch DAILY TD Last administered on 01/31/19at 18:00; Start 01/31/19 at 18:00 Miscellaneous (Lidoderm Patch Removal) 1 ea QHS MC ; Start 02/01/19 at 03:00 Olanzapine (ZyPREXA ZYDIS) 5 mg PRN Q2HR PRN PO PSYCHOSIS Last administered on 02/01/19at 21:48; Start 01/31/19 at 20:15 Aspirin (Children'S Aspirin) 81 mg DAILYWBKFT PO ; Start 02/02/19 at 08:00 Paroxetine HCl (Paxil) 30 mg DAILY PO ; Start 02/02/19 at 09:00 Mirtazapine (Remeron) 15 mg QHS PO Last administered on 02/01/19at 19:57; Start 02/01/19 at 21:00 Active Scripts Active Reported Sensi-Care Perineal Cleanser (Aloe Vera/Collagen) 118 Ml Solution 1 Edyta TP BID Paroxetine Hcl 40 Mg Tablet 40 Mg PO DAILY Trazodone Hcl 50 Mg Tablet 12.5 Mg PO QHS Dorzolamide Hcl 10 Ml Drops 1 Drp OD BID Timoptic (Timolol Maleate) 10 Ml Drops 1 Drp OD BID Pilocarpine Hcl 5 Mg Tablet 1 Drop OD TID Latanoprost 2.5 Ml Drops 1 Drop OU QHS Alphagan P (Brimonidine Tartrate) 5 Ml Drops 1 Drop OD BID Pantoprazole Sodium 40 Mg Tablet.dr 40 Mg PO DAILY Cozaar (Losartan Potassium) 50 Mg Tablet 50 Mg PO DAILY Levothyroxine Sodium 75 Mcg Tablet 75 Mcg PO DAILYAC Culturelle (Lactobacillus Rhamnosus Gg) 1 Each Capsule 1 Each PO DAILY Gabapentin (Gabapentin) 100 Mg Capsule 100 Mg PO QHS Gabapentin (Gabapentin) 100 Mg Capsule 100 Mg PO BID Finasteride 5 Mg Tablet 5 Mg PO DAILY Clonidine Hcl 0.1 Mg Tablet 0.1 Mg PO PRN DAILY PRN Lipitor (Atorvastatin Calcium) 40 Mg Tablet 40 Mg PO DAILY Atenolol 100 Mg Tablet 100 Mg PO DAILY Allopurinol 300 Mg Tablet 150 Mg PO DAILY Proair Hfa Inhaler (Albuterol Sulfate) 8.5 Gm Hfa.aer.ad 1 Puff INH PRN Q6HRS PRN Multivitamins (Multivitamin) 1 Each Tablet 1 Each PO DAILY Aspirin 325 Mg Tablet 325 Mg PO DAILY Folic Acid 1 Mg Tablet 1 Mg PO DAILY Clopidogrel (Clopidogrel Bisulfate) 75 Mg Tablet 75 Mg PO DAILY Macuvite Eye Care Tablet (A/C/E/Zinc Ox/Cupric Ox/Lutein) 1 Each Tablet 1 Each PO BID Tylenol (Acetaminophen) 325 Mg Tablet 650 Mg PO PRN QID PRN Clonazepam 0.125 Mg Tab.rapdis 0.125 Mg PO TID Tamsulosin Hcl 0.4 Mg Cap.er.24h 0.4 Mg PO DAILY Hydrochlorothiazide Tablet (Hydrochlorothiazide) 12.5 Mg Tablet 12.5 Mg PO DAILY I have reviewed the current psychotropics carefully including drug interactions. Risk benefit ratio favors no change other than as noted in my dictated progress note. Diagnosis: Problems: (1) Medical clearance for psychiatric admission (2) Anxiety disorder (3) Dementia with behavioral disturbance (4) Dementia, vascular, with delusions (5) Dementia, vascular, with depression (6) Dementia in Alzheimer's disease with delusions (7) Dementia in Alzheimer's disease with depression (8) Impulse control disorder PAOLO THOMAS MD Feb 01, 2019 22:42
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
[2019-02-02] MEDS ORDERED: clonazePAM 0.5 MG TABLET PO ONE ×2 (02:00)
[2019-02-02 05:47] VITALS: BP 109/59
[2019-02-02] MEDS: LEVOTHYROXINE 75 MCG TABLET PO SCH (06:00)
[2019-02-02 12:32] LABS: BASO # 0.1 x10^3/uL (0.0-0.2); BASO % 1 % (0-3); EOS # 0.9 x10^3/uL (0.0-0.7); EOS % 10 % (0-3); HEMATOCRIT 39.3 % (39.0-53.0); HEMOGLOBIN 12.9 g/dL (13.0-17.5); LYMPH # 2.3 x10^3/uL (1.0-4.8); LYMPH % 26 % (24-48); MEAN CORPUSCULAR HEMOGLOBIN 33 pg (25-35); MEAN CORPUSCULAR HGB CONC 33 g/dL (31-37); MEAN CORPUSCULAR VOLUME 101 fL (79-100); MONO # 0.9 x10^3/uL (0.0-1.1); MONO % 11 % (0-9); NEUT # 4.5 x10^3uL (1.8-7.7); NEUT % 52 % (31-73); PLATELET COUNT 143 x10^3/uL (140-400); RED BLOOD COUNT 3.91 x10^6/uL (4.30-5.70); RED CELL DISTRIBUTION WIDTH 16.1 % (11.5-14.5); WHITE BLOOD COUNT 8.7 x10^3/uL (4.0-11.0)
[2019-02-02] MEDS: LANSOPRAZOLE 30 MG TAB.RAP.DR PO SCH (12:35)
[2019-02-02] MEDS: ASPIRIN 81 MG TAB.CHEW PO SCH (12:36)
[2019-02-02] MEDS: TIMOLOL 0.5% OPHTH SOLUTION 5ML BOTTLE. OD SCH ×2 (12:37→20:48)
[2019-02-02] MEDS: PILOCARPINE 1% OPHTH SOLUTION 15ML BOTTLE. OU SCH ×3 (12:37→20:48)
[2019-02-02] MEDS: BRIMONIDINE 0.2% OPHTH SOLUTION 5ML BOTTLE. OU SCH ×2 (12:37→20:47)
[2019-02-02] MEDS: LACTOBACILLUS RHAMNOSUS GG 1 CAPSULE. PO SCH (12:38)
[2019-02-02] MEDS: TAMSULOSIN 0.4 MG CAP.ER.24H. PO SCH (12:38)
[2019-02-02] MEDS: DORZOLAMIDE 2% OPHTH SOLUTION 10ML BOTTLE. OU SCH ×3 (12:38→20:47)
[2019-02-02] MEDS: MULTIVITAMIN I-VITE TABLET. PO SCH ×2 (12:38→20:07)
[2019-02-02 12:39] LABS: ALBUMIN 2.5 g/dL (3.4-5.0); ALBUMIN/GLOBULIN RATIO 0.9 (1.0-1.7); CALCIUM 8.8 mg/dL (8.5-10.1); CREATININE 1.3 mg/dL (0.7-1.3); TOTAL BILIRUBIN 0.6 mg/dL (0.2-1.0); TOTAL PROTEIN 5.4 g/dL (6.4-8.2)
[2019-02-02] MEDS: clonazePAM 0.5 MG TABLET PO SCH ×3 (12:40→20:07)
[2019-02-02] MEDS: GABAPENTIN 100 MG CAPSULE. PO SCH ×3 (12:41→20:07)
[2019-02-02] MEDS: PARoxetine 10 MG TABLET PO SCH (12:42)
[2019-02-02] MEDS: CLOPIDOGREL BISULFATE 75 MG TABLET PO SCH (12:42)
[2019-02-02] MEDS: FINASTERIDE 5 MG TABLET PO SCH (12:42)
[2019-02-02] MEDS: LIDOCAINE (700MG/PATCH) PATCH. TD SCH (12:43)
[2019-02-02] MEDS: ALLOPURINOL 100 MG TABLET. PO SCH (12:43)
[2019-02-02 14:00] VITALS: BP 125/78
[2019-02-02] MEDS: ATENOLOL 50 MG TABLET PO SCH (14:41)
--- NOTE | 2019-02-02 15:01 | NUR ---
Pt slept until lunch. He was compliant with lab draw, he was compliant with staff assistance to the bathroom. His son was here for lunch and assisted with medication administration. Pt has been calm, cooperative, and complaint thus far this shift.
[2019-02-02 16:06] VITALS: BP 114/64
[2019-02-02] MEDS: ATORVASTATIN CALCIUM 20 MG TABLET PO SCH (20:07)
[2019-02-02] MEDS: MIRTAZAPINE 15 MG TABLET PO SCH (20:07)
[2019-02-02] MEDS: traZODone 50 MG TABLET. PO PRN (20:11)
[2019-02-02] MEDS: LATANOPROST 0.005% OPHTH SOLUTION 2.5ML BOTTLE. OU SCH (20:47)
[2019-02-02] MEDS: PATCH REMOVAL. MC SCH (20:57)
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
--- NOTE | 2019-02-02 22:29 | PN ---
DATE: 02/01/2019 PSYCHIATRIC PROGRESS NOTE This late entry 02/01/2019 covers elements not covered in my initial note. SUBJECTIVE: Met with the patient in the evening. The patient slept 5 hours previous night. He has had a difficult day again, was agitated, received Zyprexa as p.r.n., twice at 12:09 and 4:30 p.m., had to be in the [facility] to reduce stimuli, combative with staff. Hard of hearing makes it harder to communicate with him along with his confusion. REVIEW OF SYSTEMS: Ambulation impaired, in wheelchair. No CV, , pulmonary, eye system symptoms on review. MENTAL STATUS EXAM: Oriented to himself. Insight, judgment, recent and remote memory, attention, concentration, fund of knowledge is poor, consistent with his diagnoses mentioned in my initial note. PLAN: Increase Remeron to 15 mg at bedtime. Paxil reduced to 30 mg a day, continue to reduce it gradually. Rest unchanged. MAN Modesta THOMAS MD DR: JOYCE/krzysztof JOB#: [id number] / [id number]
--- NOTE | 2019-02-02 22:38 | PDOC ---
Exam Note: Scott Note: Please also refer to the separate dictated note~for this date of service dictated separately.~Patient seen individually. Discussed the patient with Nursing staff reviewed the chart.~Reviewed interim history and current functioning. Reviewed vital signs,~Labs/ Radiology~and current medications noted below. Continue current treatment with the changes noted in the dictated addendum note Assessment: Vital Signs: Vital Signs Date Time Temp Pulse Resp B/P (MAP) Pulse Ox O2 Delivery O2 Flow Rate FiO2 02/02/19 16:06 97.5 79 16 114/64 (81) 97 01/30/19 15:51 Room Air I&O Intake and Output 02/02/19 07:00 Intake Total 820 ml Balance 820 ml Intake Oral 820 ml Labs: Laboratory Tests Test 02/02/19 12:19 White Blood Count 8.7 x10^3/uL (4.0-11.0) Red Blood Count 3.91 x10^6/uL (4.30-5.70) L Hemoglobin 12.9 g/dL (13.0-17.5) L Hematocrit 39.3 % (39.0-53.0) Mean Corpuscular Volume 101 fL (79-100) H Mean Corpuscular Hemoglobin 33 pg (25-35) Mean Corpuscular Hemoglobin Concent 33 g/dL (31-37) Red Cell Distribution Width 16.1 % (11.5-14.5) H Platelet Count 143 x10^3/uL (140-400) Neutrophils (%) (Auto) 52 % (31-73) Lymphocytes (%) (Auto) 26 % (24-48) Monocytes (%) (Auto) 11 % (0-9) H Eosinophils (%) (Auto) 10 % (0-3) H Basophils (%) (Auto) 1 % (0-3) Neutrophils # (Auto) 4.5 x10^3uL (1.8-7.7) Lymphocytes # (Auto) 2.3 x10^3/uL (1.0-4.8) Monocytes # (Auto) 0.9 x10^3/uL (0.0-1.1) Eosinophils # (Auto) 0.9 x10^3/uL (0.0-0.7) H Basophils # (Auto) 0.1 x10^3/uL (0.0-0.2) Sodium Level 147 mmol/L (136-145) H Potassium Level 4.0 mmol/L (3.5-5.1) Chloride Level 113 mmol/L (98-107) H Carbon Dioxide Level 26 mmol/L (21-32) Anion Gap 8 (6-14) Blood Urea Nitrogen 23 mg/dL (8-26) Creatinine 1.3 mg/dL (0.7-1.3) Estimated GFR (Cockcroft-Gault) 52.0 BUN/Creatinine Ratio 18 (6-20) Glucose Level 117 mg/dL (70-99) H Calcium Level 8.8 mg/dL (8.5-10.1) Total Bilirubin 0.6 mg/dL (0.2-1.0) Aspartate Amino Transferase (AST) 35 U/L (15-37) Alanine Aminotransferase (ALT) 27 U/L (16-63) Alkaline Phosphatase 101 U/L (46-116) Total Protein 5.4 g/dL (6.4-8.2) L Albumin 2.5 g/dL (3.4-5.0) L Albumin/Globulin Ratio 0.9 (1.0-1.7) L Current Medications: Meds: Current Medications Sodium Chloride 1,000 ml @ 1,000 mls/hr 1X ONCE IV Last administered on at 17:31; Start 01/26/19 at 17:30; Stop 01/26/19 at 18:29; Status DC Lorazepam (Ativan) 1 mg 1X ONCE IV Last administered on 01/26/19at 21:22; Start 01/26/19 at 21:15; Stop 01/26/19 at 21:23; Status DC Lorazepam (Ativan) 1 mg 1X ONCE IV Last administered on 01/26/19at 22:44; Start 01/26/19 at 22:30; Stop 01/26/19 at 22:32; Status DC Acetaminophen (Tylenol) 650 mg PRN Q6HRS PRN PO PAIN / TEMP; Start 01/27/19 at 00:00; Status Cancel Multi-Ingredient Ointment (Analgesic Bucks) 1 edyta PRN QID PRN TP MUSCLE PAIN; Start 01/27/19 at 00:00 Al Hydroxide/Mg Hydroxide (Mylanta Plus Xs) 15 ml PRN AFTMEALHC PRN PO DYSPEPSIA; Start 01/27/19 at 00:00 Magnesium Hydroxide (Milk Of Magnesia) 2,400 mg PRN QHS PRN PO CONSTIPATION; Start 01/27/19 at 00:00 Clonazepam (KlonoPIN) 0.125 mg TID PO Last administered on 02/02/19 20:07; Start 01/27/19 at 09:00 Paroxetine HCl (Paxil) 40 mg DAILY PO Last administered on 02/01/19 08:27; Start 01/27/19 at 09:00; Stop 02/01/19 at 18:49; Status DC Trazodone HCl (Desyrel) 12.5 mg QHS PO ; Start 01/27/19 at 21:00; Stop 01/27/19 at 21:00; Status DC Olanzapine (ZyPREXA ZYDIS) 2.5 mg PRN Q2HR PRN PO PSYCHOSIS Last administered on 01/31/19 08:47; Start 01/27/19 at 01:00; Stop 01/31/19 at 20:14; Status DC Acetaminophen (Tylenol) 650 mg PRN QID PRN PO PAIN; Start 01/27/19 at 01:00 Albuterol Sulfate (Ventolin) 1 mg PRN Q6HRS PRN INH SHORTNESS OF BREATH; Start 01/27/19 at 01:00 Aspirin (Hira Aspirin) 325 mg DAILYWBKFT PO Last administered on 02/01/19 08: 27; Start 01/27/19 at 08:00; Stop 02/01/19 at 13:38; Status DC Clonidine HCl (Catapres) 0.1 mg PRN DAILY PRN PO HYPERTENSION, SEE COMMENTS; Start 01/27/19 at 01:00 Clopidogrel Bisulfate (Plavix) 75 mg DAILY PO Last administered on 02/02/19 12: 42; Start 01/27/19 at 09:00 Gabapentin (Neurontin) 100 mg BID94 PO Last administered on 02/02/19 17:02; Start 01/27/19 at 09:00 Gabapentin (Neurontin) 100 mg QHS PO Last administered on 02/02/19 20:07; Start 01/27/19 at 21:00 Levothyroxine Sodium (Synthroid) 75 mcg DAILY06 PO Last administered on 06:23; Start 01/27/19 at 06:00 Losartan Potassium (Cozaar) 50 mg DAILY PO Last administered on 01/27/19 13:26 ; Start 01/27/19 at 09:00; Stop 01/27/19 at 14:32; Status DC Tamsulosin HCl (Flomax) 0.4 mg DAILY PO Last administered on 02/02/19 12:38; Start 01/27/19 at 09:00 Multivitamins/ Minerals (I-Alis) 1 tab BID PO Last administered on 02/02/19 20: 07; Start 01/27/19 at 09:00 Allopurinol (Zyloprim) 150 mg DAILY PO Last administered on 02/02/19 12:43; Start 01/27/19 at 09:00 Non-Formulary Medication (Aloe Vera/ Collagen (Sensi-Care Perineal Cleanser)) 1 edyta BID TP ; Start 01/27/19 at 09:00; Stop 01/27/19 at 09:00; Status DC Atenolol (Tenormin) 100 mg DAILY PO Last administered on 02/02/19 14:41; Start 01/27/19 at 09:00 Atorvastatin Calcium (Lipitor) 40 mg HS PO Last administered on 02/02/19 20:07 ; Start 01/27/19 at 21:00 Brimonidine Tartrate (Alphagan) 1 drop BID OD ; Start 01/27/19 at 09:00; Stop at 12:36; Status DC Dorzolamide HCl (Trusopt) 1 drop BID OD ; Start 01/27/19 at 09:00; Stop at 12:39; Status DC Finasteride (Proscar) 5 mg DAILY PO Last administered on 02/02/19 12:42; Start 01/27/19 at 09:00 Folic Acid (Folic Acid) 1 mg DAILY PO Last administered on 02/01/19 08:26; Start 01/27/19 at 09:00; Stop 02/01/19 at 13:38; Status DC Hydrochlorothiazide (Microzide) 12.5 mg DAILY PO Last administered on 13:27; Start 01/27/19 at 09:00; Stop 01/27/19 at 14:32; Status DC Lactobacillus Rhamnosus (Culturelle) 1 cap DAILY PO Last administered on 12:38; Start 01/27/19 at 09:00 Latanoprost (Xalatan) 1 drop QHS OU Last administered on 02/02/19 20:47; Start 01/27/19 at 21:00 Multivitamins/ Calcium (Thera-M Plus) 1 tab DAILY PO Last administered on 08:26; Start 01/27/19 at 09:00; Stop 02/01/19 at 13:38; Status DC Pantoprazole Sodium (Protonix) 40 mg DAILYAC PO Last administered on 01/28/19 10:03; Start 01/27/19 at 07:30; Stop 01/29/19 at 11:24; Status DC Pilocarpine HCl (Pilocar) 1 drop TID OD ; Start 01/27/19 at 09:00; Stop at 12:38; Status DC Timolol Maleate (Timoptic 0.5% Ophth) 1 drop BID OD Last administered on 20:48; Start 01/27/19 at 07:15 Brimonidine Tartrate (Alphagan) 1 drop BID OU Last administered on 02/02/19 20: 47; Start 01/27/19 at 12:36 Pilocarpine HCl (Pilocar) 1 drop TID OU Last administered on 02/02/19 20:48; Start 01/27/19 at 12:38 Dorzolamide HCl (Trusopt) 1 drop TID OU Last administered on 02/02/19 20:47; Start 01/27/19 at 14:00 Olanzapine (ZyPREXA ZYDIS) 2.5 mg PRN Q2HR PRN PO PSYCHOSIS; Start 01/27/19 at 17:30; Stop 01/29/19 at 17:13; Status DC Trazodone HCl (Desyrel) 50 mg PRN QHS PRN PO INSOMNIA, MAY REPEAT X1 Last administered on 02/02/19 20:11; Start 01/27/19 at 17:30 Mirtazapine (Remeron) 7.5 mg QHS PO Last administered on 01/31/19 19:55; Start 01/28/19 at 21:00; Stop 02/01/19 at 18:50; Status DC Lansoprazole (Prevacid) 30 mg DAILYAC PO Last administered on 02/02/19 12:35; Start 01/30/19 at 07:30 Tuberculin PPD (Tubersol) 0.1 ml 1X ONCE ID Last administered on 01/30/19 15: 14; Start 01/30/19 at 14:45; Stop 01/30/19 at 14:52; Status DC Lidocaine (Lidoderm) 1 patch DAILY TD Last administered on 02/02/19 12:43; Start 01/31/19 at 18:00 Miscellaneous (Lidoderm Patch Removal) 1 ea QHS MC Last administered on 20:57; Start 02/01/19 at 03:00 Olanzapine (ZyPREXA ZYDIS) 5 mg PRN Q2HR PRN PO PSYCHOSIS Last administered on 02/01/19 21:48; Start 01/31/19 at 20:15 Aspirin (Children'S Aspirin) 81 mg DAILYWBKFT PO Last administered on 02/02/19 12:36; Start 02/02/19 at 08:00 Paroxetine HCl (Paxil) 30 mg DAILY PO Last administered on 02/02/19 12:42; Start 02/02/19 at 09:00 Mirtazapine (Remeron) 15 mg QHS PO Last administered on 02/02/19 20:07; Start 02/01/19 at 21:00 Clonazepam (KlonoPIN) 0.25 mg 1X ONCE PO Last administered on 02/01/19 23:48; Start 02/02/19 at 00:00; Stop 02/02/19 at 00:01; Status DC Clonazepam (KlonoPIN) 0.25 mg 1X ONCE PO Last administered on 02/02/19 01:47; Start 02/02/19 at 02:00; Stop 02/02/19 at 02:01; Status DC Active Scripts Active Reported Sensi-Care Perineal Cleanser (Aloe Vera/Collagen) 118 Ml Solution 1 Edyta TP BID Paroxetine Hcl 40 Mg Tablet 40 Mg PO DAILY Trazodone Hcl 50 Mg Tablet 12.5 Mg PO QHS Dorzolamide Hcl 10 Ml Drops 1 Drp OD BID Timoptic (Timolol Maleate) 10 Ml Drops 1 Drp OD BID Pilocarpine Hcl 5 Mg Tablet 1 Drop OD TID Latanoprost 2.5 Ml Drops 1 Drop OU QHS Alphagan P (Brimonidine Tartrate) 5 Ml Drops 1 Drop OD BID Pantoprazole Sodium 40 Mg Tablet.dr 40 Mg PO DAILY Cozaar (Losartan Potassium) 50 Mg Tablet 50 Mg PO DAILY Levothyroxine Sodium 75 Mcg Tablet 75 Mcg PO DAILYAC Culturelle (Lactobacillus Rhamnosus Gg) 1 Each Capsule 1 Each PO DAILY Gabapentin (Gabapentin) 100 Mg Capsule 100 Mg PO QHS Gabapentin (Gabapentin) 100 Mg Capsule 100 Mg PO BID Finasteride 5 Mg Tablet 5 Mg PO DAILY Clonidine Hcl 0.1 Mg Tablet 0.1 Mg PO PRN DAILY PRN Lipitor (Atorvastatin Calcium) 40 Mg Tablet 40 Mg PO DAILY Atenolol 100 Mg Tablet 100 Mg PO DAILY Allopurinol 300 Mg Tablet 150 Mg PO DAILY Proair Hfa Inhaler (Albuterol Sulfate) 8.5 Gm Hfa.aer.ad 1 Puff INH PRN Q6HRS PRN Multivitamins (Multivitamin) 1 Each Tablet 1 Each PO DAILY Aspirin 325 Mg Tablet 325 Mg PO DAILY Folic Acid 1 Mg Tablet 1 Mg PO DAILY Clopidogrel (Clopidogrel Bisulfate) 75 Mg Tablet 75 Mg PO DAILY Macuvite [facility] Tablet (A/C/E/Zinc Ox/Cupric Ox/Lutein) 1 Each Tablet 1 Each PO BID Tylenol (Acetaminophen) 325 Mg Tablet 650 Mg PO PRN QID PRN Clonazepam 0.125 Mg Tab.rapdis 0.125 Mg PO TID Tamsulosin Hcl 0.4 Mg Cap.er.24h 0.4 Mg PO DAILY Hydrochlorothiazide Tablet (Hydrochlorothiazide) 12.5 Mg Tablet 12.5 Mg PO DAILY I have reviewed the current psychotropics carefully including drug interactions. Risk benefit ratio favors no change other than as noted in my dictated progress note. Diagnosis: Problems: (1) Medical clearance for psychiatric admission (2) Anxiety disorder (3) Dementia with behavioral disturbance (4) Dementia, vascular, with delusions (5) Dementia, vascular, with depression (6) Dementia in Alzheimer's disease with delusions (7) Dementia in Alzheimer's disease with depression (8) Impulse control disorder PAOLO THOMAS MD Feb 02, 2019 22:37
--- NOTE | 2019-02-02 23:05 | NUR ---
Nursing Note The patient was compliant with his medications and took it whole. The patient was appropriate and interactive with this nurse during assessment. The patient took his medications whole. the patient is currently sleeping in his room.
--- NOTE | 2019-02-02 23:45 | NUR ---
Nursing Note The patient received PRN Trazodone with his HS medications.
[2019-02-03 05:53] VITALS: BP 126/75
[2019-02-03] MEDS: LEVOTHYROXINE 75 MCG TABLET PO SCH (06:05)
[2019-02-03] MEDS: TIMOLOL 0.5% OPHTH SOLUTION 5ML BOTTLE. OD SCH ×2 (07:58→20:01)
[2019-02-03] MEDS: LANSOPRAZOLE 30 MG TAB.RAP.DR PO SCH (07:58)
[2019-02-03] MEDS: ASPIRIN 81 MG TAB.CHEW PO SCH ×2 (07:58→08:00)
[2019-02-03] MEDS: BRIMONIDINE 0.2% OPHTH SOLUTION 5ML BOTTLE. OU SCH ×2 (07:59→20:01)
[2019-02-03] MEDS: TAMSULOSIN 0.4 MG CAP.ER.24H. PO SCH ×2 (07:59→09:00)
[2019-02-03] MEDS: PILOCARPINE 1% OPHTH SOLUTION 15ML BOTTLE. OU SCH ×3 (07:59→20:01)
[2019-02-03] MEDS: DORZOLAMIDE 2% OPHTH SOLUTION 10ML BOTTLE. OU SCH ×3 (07:59→20:01)
[2019-02-03] MEDS: MULTIVITAMIN I-VITE TABLET. PO SCH ×3 (07:59→20:03)
[2019-02-03] MEDS: LACTOBACILLUS RHAMNOSUS GG 1 CAPSULE. PO SCH ×2 (07:59→09:00)
[2019-02-03] MEDS: CLOPIDOGREL BISULFATE 75 MG TABLET PO SCH ×2 (08:00→09:00)
[2019-02-03] MEDS: GABAPENTIN 100 MG CAPSULE. PO SCH ×4 (08:00→20:03)
[2019-02-03] MEDS: FINASTERIDE 5 MG TABLET PO SCH ×2 (08:01→09:00)
[2019-02-03] MEDS: ATENOLOL 50 MG TABLET PO SCH ×2 (08:03→09:00)
[2019-02-03] MEDS: ALLOPURINOL 100 MG TABLET. PO SCH ×2 (08:03→09:00)
[2019-02-03] MEDS: LIDOCAINE (700MG/PATCH) PATCH. TD SCH ×2 (08:04→09:00)
[2019-02-03] MEDS: PARoxetine 10 MG TABLET PO SCH (09:00)
[2019-02-03] MEDS: clonazePAM 0.5 MG TABLET PO SCH ×3 (09:00→19:52)
--- NOTE | 2019-02-03 09:44 | NUR ---
Pt is drowsy but arousable. No agitation or aggression at this time. His compliant with cares and assessment.
--- NOTE | 2019-02-03 10:00 | NUR ---
Reviewed with Radha, vice president for philanthropy, at [facility]. Radha indicated that she will need to come out to complete an evaluation on Kevan late this week or early next depending on when Kevan will be discharging. Will plan to touch base with Radha on 02/05/19 after treatment team meeting. Call placed to [place], son/POValentina, who plans to be involved in person at [facility] meeting to be held on 02/05/19.
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
[2019-02-03] MEDS: OLANZapine IM 10 MG VIAL. IM SCH (11:44)
[2019-02-03 16:23] VITALS: BP 129/79
--- NOTE | 2019-02-03 18:41 | PN ---
DATE: 02/02/2019 PSYCHIATRIC PROGRESS NOTE This late entry 02/02/2019 covers elements not covered in my initial note. SUBJECTIVE: I met with the patient in the evening. The patient slept 2-1/2 hours previous night. He is quite agitated previous evening, received Klonopin x 2. Slept until lunch on 02/02/2019. Labs are unremarkable. He gets agitated with cares, but less so on 02/02/2019 than before. REVIEW OF SYSTEMS: Ambulation impaired. No CV, , pulmonary, eye, ENT system symptoms on review. Reliability poor. He is in a wheelchair. MENTAL STATUS EXAM: Oriented to himself. Insight, judgment, recent and remote memory, attention, concentration, fund of knowledge poor, consistent with his diagnosis mentioned in my initial note. PLAN: No change from initial note. We have increased the Remeron and reducing the Paxil, which we will continue to do. Make further adjustments in psychotropics as clinically indicated. MAN Modesta THOMAS MD DR: JOYCE/krzysztof JOB#: [id number] / [id number]
[2019-02-03] MEDS: MIRTAZAPINE 15 MG TABLET PO SCH (19:51)
[2019-02-03] MEDS: ATORVASTATIN CALCIUM 20 MG TABLET PO SCH ×2 (19:51→20:03)
[2019-02-03] MEDS: traZODone 50 MG TABLET. PO PRN (19:52)
[2019-02-03] MEDS: LATANOPROST 0.005% OPHTH SOLUTION 2.5ML BOTTLE. OU SCH (20:01)
[2019-02-03] MEDS: PATCH REMOVAL. MC SCH (21:00)
--- NOTE | 2019-02-03 22:07 | PDOC ---
Exam Note: Scott Note: Please also refer to the separate dictated note~for this date of service dictated separately.~Patient seen individually. Discussed the patient with Nursing staff reviewed the chart.~Reviewed interim history and current functioning. Reviewed vital signs,~Labs/ Radiology~and current medications noted below. Continue current treatment with the changes noted in the dictated addendum note Assessment: Vital Signs: Vital Signs Date Time Temp Pulse Resp B/P (MAP) Pulse Ox O2 Delivery O2 Flow Rate FiO2 02/03/19 16:23 98.1 59 20 129/79 (96) 99 Room Air I&O Intake and Output 02/03/19 06:59 Intake Total 720 ml Balance 720 ml Intake Oral 720 ml Current Medications: Meds: Current Medications Sodium Chloride 1,000 ml @ 1,000 mls/hr 1X ONCE IV Last administered on at 17:31; Start 01/26/19 at 17:30; Stop 01/26/19 at 18:29; Status DC Lorazepam (Ativan) 1 mg 1X ONCE IV Last administered on 01/26/19at 21:22; Start 01/26/19 at 21:15; Stop 01/26/19 at 21:23; Status DC Lorazepam (Ativan) 1 mg 1X ONCE IV Last administered on 01/26/19at 22:44; Start 01/26/19 at 22:30; Stop 01/26/19 at 22:32; Status DC Acetaminophen (Tylenol) 650 mg PRN Q6HRS PRN PO PAIN / TEMP; Start 01/27/19 at 00:00; Status Cancel Multi-Ingredient Ointment (Analgesic [place]) 1 edyta PRN QID PRN TP MUSCLE PAIN; Start 01/27/19 at 00:00 Al Hydroxide/Mg Hydroxide (Mylanta Plus Xs) 15 ml PRN AFTMEALHC PRN PO DYSPEPSIA; Start 01/27/19 at 00:00 Magnesium Hydroxide (Milk Of Magnesia) 2,400 mg PRN QHS PRN PO CONSTIPATION Last administered on 02/03/19at 08:05; Start 01/27/19 at 00:00 Clonazepam (KlonoPIN) 0.125 mg TID PO Last administered on 02/03/19at 19:52; Start 01/27/19 at 09:00 Paroxetine HCl (Paxil) 40 mg DAILY PO Last administered on 02/01/19 08:27; Start 01/27/19 at 09:00; Stop 02/01/19 at 18:49; Status DC Trazodone HCl (Desyrel) 12.5 mg QHS PO ; Start 01/27/19 at 21:00; Stop 01/27/19 at 21:00; Status DC Olanzapine (ZyPREXA ZYDIS) 2.5 mg PRN Q2HR PRN PO PSYCHOSIS Last administered on 01/31/19 08:47; Start 01/27/19 at 01:00; Stop 01/31/19 at 20:14; Status DC Acetaminophen (Tylenol) 650 mg PRN QID PRN PO PAIN; Start 01/27/19 at 01:00 Albuterol Sulfate (Ventolin) 1 mg PRN Q6HRS PRN INH SHORTNESS OF BREATH; Start 01/27/19 at 01:00 Aspirin (Hira Aspirin) 325 mg DAILYWBKFT PO Last administered on 02/01/19 08: 27; Start 01/27/19 at 08:00; Stop 02/01/19 at 13:38; Status DC Clonidine HCl (Catapres) 0.1 mg PRN DAILY PRN PO HYPERTENSION, SEE COMMENTS; Start 01/27/19 at 01:00 Clopidogrel Bisulfate (Plavix) 75 mg DAILY PO Last administered on 02/02/19 12: 42; Start 01/27/19 at 09:00 Gabapentin (Neurontin) 100 mg BID94 PO Last administered on 02/03/19 17:22; Start 01/27/19 at 09:00 Gabapentin (Neurontin) 100 mg QHS PO Last administered on 02/02/19 20:07; Start 01/27/19 at 21:00 Levothyroxine Sodium (Synthroid) 75 mcg DAILY06 PO Last administered on 06:05; Start 01/27/19 at 06:00 Losartan Potassium (Cozaar) 50 mg DAILY PO Last administered on 01/27/19 13:26 ; Start 01/27/19 at 09:00; Stop 01/27/19 at 14:32; Status DC Tamsulosin HCl (Flomax) 0.4 mg DAILY PO Last administered on 02/02/19 12:38; Start 01/27/19 at 09:00 Multivitamins/ Minerals (I-Alis) 1 tab BID PO Last administered on 02/03/19 07: 59; Start 01/27/19 at 09:00 Allopurinol (Zyloprim) 150 mg DAILY PO Last administered on 02/02/19 12:43; Start 01/27/19 at 09:00 Non-Formulary Medication (Aloe Vera/ Collagen (Sensi-Care Perineal Cleanser)) 1 edyta BID TP ; Start 01/27/19 at 09:00; Stop 01/27/19 at 09:00; Status DC Atenolol (Tenormin) 100 mg DAILY PO Last administered on 02/02/19 14:41; Start 01/27/19 at 09:00 Atorvastatin Calcium (Lipitor) 40 mg HS PO Last administered on 02/02/19 20:07 ; Start 01/27/19 at 21:00 Brimonidine Tartrate (Alphagan) 1 drop BID OD ; Start 01/27/19 at 09:00; Stop at 12:36; Status DC Dorzolamide HCl (Trusopt) 1 drop BID OD ; Start 01/27/19 at 09:00; Stop at 12:39; Status DC Finasteride (Proscar) 5 mg DAILY PO Last administered on 02/02/19 12:42; Start 01/27/19 at 09:00 Folic Acid (Folic Acid) 1 mg DAILY PO Last administered on 02/01/19 08:26; Start 01/27/19 at 09:00; Stop 02/01/19 at 13:38; Status DC Hydrochlorothiazide (Microzide) 12.5 mg DAILY PO Last administered on 13:27; Start 01/27/19 at 09:00; Stop 01/27/19 at 14:32; Status DC Lactobacillus Rhamnosus (Culturelle) 1 cap DAILY PO Last administered on 12:38; Start 01/27/19 at 09:00 Latanoprost (Xalatan) 1 drop QHS OU Last administered on 02/02/19 20:47; Start 01/27/19 at 21:00 Multivitamins/ Calcium (Thera-M Plus) 1 tab DAILY PO Last administered on 08:26; Start 01/27/19 at 09:00; Stop 02/01/19 at 13:38; Status DC Pantoprazole Sodium (Protonix) 40 mg DAILYAC PO Last administered on 01/28/19 10:03; Start 01/27/19 at 07:30; Stop 01/29/19 at 11:24; Status DC Pilocarpine HCl (Pilocar) 1 drop TID OD ; Start 01/27/19 at 09:00; Stop at 12:38; Status DC Timolol Maleate (Timoptic 0.5% Ophth) 1 drop BID OD Last administered on 07:58; Start 01/27/19 at 07:15 Brimonidine Tartrate (Alphagan) 1 drop BID OU Last administered on 02/03/19 07: 59; Start 01/27/19 at 12:36 Pilocarpine HCl (Pilocar) 1 drop TID OU Last administered on 02/03/19 07:59; Start 01/27/19 at 12:38 Dorzolamide HCl (Trusopt) 1 drop TID OU Last administered on 02/03/19 07:59; Start 01/27/19 at 14:00 Olanzapine (ZyPREXA ZYDIS) 2.5 mg PRN Q2HR PRN PO PSYCHOSIS; Start 01/27/19 at 17:30; Stop 01/29/19 at 17:13; Status DC Trazodone HCl (Desyrel) 50 mg PRN QHS PRN PO INSOMNIA, MAY REPEAT X1 Last administered on 02/03/19 19:52; Start 01/27/19 at 17:30 Mirtazapine (Remeron) 7.5 mg QHS PO Last administered on 01/31/19 19:55; Start 01/28/19 at 21:00; Stop 02/01/19 at 18:50; Status DC Lansoprazole (Prevacid) 30 mg DAILYAC PO Last administered on 02/03/19 07:58; Start 01/30/19 at 07:30 Tuberculin PPD (Tubersol) 0.1 ml 1X ONCE ID Last administered on 01/30/19 15: 14; Start 01/30/19 at 14:45; Stop 01/30/19 at 14:52; Status DC Lidocaine (Lidoderm) 1 patch DAILY TD Last administered on 02/02/19 12:43; Start 01/31/19 at 18:00 Miscellaneous (Lidoderm Patch Removal) 1 ea QHS MC Last administered on 20:57; Start 02/01/19 at 03:00 Olanzapine (ZyPREXA ZYDIS) 5 mg PRN Q2HR PRN PO PSYCHOSIS Last administered on 02/03/19 21:25; Start 01/31/19 at 20:15 Aspirin (Children'S Aspirin) 81 mg DAILYWBKFT PO Last administered on 02/02/19 12:36; Start 02/02/19 at 08:00 Paroxetine HCl (Paxil) 30 mg DAILY PO Last administered on 02/02/19 12:42; Start 02/02/19 at 09:00 Mirtazapine (Remeron) 15 mg QHS PO Last administered on 02/03/19 19:51; Start 02/01/19 at 21:00 Clonazepam (KlonoPIN) 0.25 mg 1X ONCE PO Last administered on 02/01/19 23:48; Start 02/02/19 at 00:00; Stop 02/02/19 at 00:01; Status DC Clonazepam (KlonoPIN) 0.25 mg 1X ONCE PO Last administered on 02/02/19 01:47; Start 02/02/19 at 02:00; Stop 02/02/19 at 02:01; Status DC Olanzapine (ZyPREXA IM) 5 mg DAILY IM ; Start 02/04/19 at 09:00; Stop 02/04/19 at 09:00; Status DC Lorazepam (Ativan) 0.5 mg DAILY IM ; Start 02/04/19 at 09:00; Stop 02/04/19 at 09: 00; Status DC Lorazepam (Ativan) 0.5 mg DAILY IM Last administered on 02/03/19 11:43; Start 02/03/19 at 11:45 Olanzapine (ZyPREXA IM) 5 mg DAILY IM Last administered on 02/03/19 11:44; Start 02/03/19 at 11:45 Active Scripts Active Reported Sensi-Care Perineal Cleanser (Aloe Vera/Collagen) 118 Ml Solution 1 Edyta TP BID Paroxetine Hcl 40 Mg Tablet 40 Mg PO DAILY Trazodone Hcl 50 Mg Tablet 12.5 Mg PO QHS Dorzolamide Hcl 10 Ml Drops 1 Drp OD BID Timoptic (Timolol Maleate) 10 Ml Drops 1 Drp OD BID Pilocarpine Hcl 5 Mg Tablet 1 Drop OD TID Latanoprost 2.5 Ml Drops 1 Drop OU QHS Alphagan P (Brimonidine Tartrate) 5 Ml Drops 1 Drop OD BID Pantoprazole Sodium 40 Mg Tablet.dr 40 Mg PO DAILY Cozaar (Losartan Potassium) 50 Mg Tablet 50 Mg PO DAILY Levothyroxine Sodium 75 Mcg Tablet 75 Mcg PO DAILYAC Culturelle (Lactobacillus Rhamnosus Gg) 1 Each Capsule 1 Each PO DAILY Gabapentin (Gabapentin) 100 Mg Capsule 100 Mg PO QHS Gabapentin (Gabapentin) 100 Mg Capsule 100 Mg PO BID Finasteride 5 Mg Tablet 5 Mg PO DAILY Clonidine Hcl 0.1 Mg Tablet 0.1 Mg PO PRN DAILY PRN Lipitor (Atorvastatin Calcium) 40 Mg Tablet 40 Mg PO DAILY Atenolol 100 Mg Tablet 100 Mg PO DAILY Allopurinol 300 Mg Tablet 150 Mg PO DAILY Proair Hfa Inhaler (Albuterol Sulfate) 8.5 Gm Hfa.aer.ad 1 Puff INH PRN Q6HRS PRN Multivitamins (Multivitamin) 1 Each Tablet 1 Each PO DAILY Aspirin 325 Mg Tablet 325 Mg PO DAILY Folic Acid 1 Mg Tablet 1 Mg PO DAILY Clopidogrel (Clopidogrel Bisulfate) 75 Mg Tablet 75 Mg PO DAILY Macuvite Eye Care Tablet (A/C/E/Zinc Ox/Cupric Ox/Lutein) 1 Each Tablet 1 Each PO BID Tylenol (Acetaminophen) 325 Mg Tablet 650 Mg PO PRN QID PRN Clonazepam 0.125 Mg Tab.rapdis 0.125 Mg PO TID Tamsulosin Hcl 0.4 Mg Cap.er.24h 0.4 Mg PO DAILY Hydrochlorothiazide Tablet (Hydrochlorothiazide) 12.5 Mg Tablet 12.5 Mg PO DAILY I have reviewed the current psychotropics carefully including drug interactions. Risk benefit ratio favors no change other than as noted in my dictated progress note. Diagnosis: Problems: (1) Medical clearance for psychiatric admission (2) Anxiety disorder (3) Dementia with behavioral disturbance (4) Dementia, vascular, with delusions (5) Dementia, vascular, with depression (6) Dementia in Alzheimer's disease with delusions (7) Dementia in Alzheimer's disease with depression (8) Impulse control disorder POALO THOMAS MD Feb 03, 2019 22:07
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
[2019-02-04 05:47] VITALS: BP 108/68
[2019-02-04] MEDS ORDERED: OLANZapine IM 10 MG VIAL. IM SCH (09:00)
[2019-02-04] MEDS: OLANZapine IM 10 MG VIAL. IM SCH (09:00)
--- NOTE | 2019-02-04 10:45 | NUR ---
Patient slept through breakfast. Will give AM medications when he awakens.
[2019-02-04] MEDS: ALLOPURINOL 100 MG TABLET. PO SCH (11:27)
[2019-02-04] MEDS: LANSOPRAZOLE 30 MG TAB.RAP.DR PO SCH (11:27)
[2019-02-04] MEDS: ATENOLOL 50 MG TABLET PO SCH (11:28)
[2019-02-04] MEDS: LACTOBACILLUS RHAMNOSUS GG 1 CAPSULE. PO SCH (11:28)
[2019-02-04] MEDS: MULTIVITAMIN I-VITE TABLET. PO SCH ×2 (11:28→20:16)
[2019-02-04] MEDS: CLOPIDOGREL BISULFATE 75 MG TABLET PO SCH (11:29)
[2019-02-04] MEDS: ASPIRIN 81 MG TAB.CHEW PO SCH (11:29)
[2019-02-04] MEDS: FINASTERIDE 5 MG TABLET PO SCH (11:29)
[2019-02-04] MEDS: TAMSULOSIN 0.4 MG CAP.ER.24H. PO SCH (11:29)
[2019-02-04] MEDS: LEVOTHYROXINE 75 MCG TABLET PO SCH (11:29)
[2019-02-04] MEDS: PARoxetine 10 MG TABLET PO SCH (11:29)
[2019-02-04] MEDS: LIDOCAINE (700MG/PATCH) PATCH. TD SCH (11:30)
[2019-02-04] MEDS: GABAPENTIN 100 MG CAPSULE. PO SCH ×3 (11:32→20:17)
[2019-02-04] MEDS: clonazePAM 0.5 MG TABLET PO SCH ×3 (11:33→20:18)
[2019-02-04] MEDS: DORZOLAMIDE 2% OPHTH SOLUTION 10ML BOTTLE. OU SCH ×3 (11:36→21:00)
[2019-02-04] MEDS: TIMOLOL 0.5% OPHTH SOLUTION 5ML BOTTLE. OD SCH ×2 (11:36→21:00)
[2019-02-04] MEDS: PILOCARPINE 1% OPHTH SOLUTION 15ML BOTTLE. OU SCH ×3 (11:36→21:00)
[2019-02-04] MEDS: BRIMONIDINE 0.2% OPHTH SOLUTION 5ML BOTTLE. OU SCH ×2 (11:36→21:00)
--- NOTE | 2019-02-04 16:03 | NUR ---
Patient was resistive with cares this morning but not combative. He has not been aggressive to staff this afternoon. Compliant with medications taken whole. Son visited him at both visiting hours and stated he felt his father was communicating better. He slept in until 11am. No delusions or hallucinations noted at this time.
[2019-02-04 16:18] VITALS: BP 103/68
--- NOTE | 2019-02-04 16:26 | NUR ---
1:1 with Kevan in the day room this afternoon. He was eating ice cream and drinking water. Kevan was alert and conversant. He recalled growing up in [place], being twice, and having five children. He spoke of his employment at [employer]. Kevan reported he has been reluctant to join group due to his hearing loss and reports he can not do some of the exercises due to his "bad knees." He inquired about therapy services and this worker reassured Kevan that the therapists would come and get him for exercise. Kevan's son, Chino, came for the afternoon visiting hour. Will follow.
[2019-02-04] MEDS: ATORVASTATIN CALCIUM 20 MG TABLET PO SCH (20:17)
[2019-02-04] MEDS: MIRTAZAPINE 15 MG TABLET PO SCH (20:18)
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
[2019-02-04] MEDS: LATANOPROST 0.005% OPHTH SOLUTION 2.5ML BOTTLE. OU SCH (21:00)
[2019-02-04] MEDS: PATCH REMOVAL. MC SCH (21:00)
--- NOTE | 2019-02-04 22:21 | PDOC ---
Exam Note: Scott Note: Please also refer to the separate dictated note~for this date of service dictated separately.~Patient seen individually. Discussed the patient with Nursing staff reviewed the chart.~Reviewed interim history and current functioning. Reviewed vital signs,~Labs/ Radiology~and current medications noted below. Continue current treatment with the changes noted in the dictated addendum note Assessment: Vital Signs: Vital Signs Date Time Temp Pulse Resp B/P (MAP) Pulse Ox O2 Delivery O2 Flow Rate FiO2 02/04/19 16:18 97.9 64 20 103/68 (80) 93 02/03/19 16:23 Room Air I&O Intake and Output 02/04/19 06:59 Intake Total 840 ml Balance 840 ml Intake Oral 840 ml # Bowel Movements 2 Current Medications: Meds: Current Medications Sodium Chloride 1,000 ml @ 1,000 mls/hr 1X ONCE IV Last administered on 17:31; Start 01/26/19 at 17:30; Stop 01/26/19 at 18:29; Status DC Lorazepam (Ativan) 1 mg 1X ONCE IV Last administered on 01/26/19at 21:22; Start 01/26/19 at 21:15; Stop 01/26/19 at 21:23; Status DC Lorazepam (Ativan) 1 mg 1X ONCE IV Last administered on 01/26/19at 22:44; Start 01/26/19 at 22:30; Stop 01/26/19 at 22:32; Status DC Acetaminophen (Tylenol) 650 mg PRN Q6HRS PRN PO PAIN / TEMP; Start 01/27/19 at 00:00; Status Cancel Multi-Ingredient Ointment (Analgesic [place]) 1 edyta PRN QID PRN TP MUSCLE PAIN; Start 01/27/19 at 00:00 Al Hydroxide/Mg Hydroxide (Mylanta Plus Xs) 15 ml PRN AFTMEALHC PRN PO DYSPEPSIA; Start 01/27/19 at 00:00 Magnesium Hydroxide (Milk Of Magnesia) 2,400 mg PRN QHS PRN PO CONSTIPATION Last administered on 02/03/19at 08:05; Start 01/27/19 at 00:00 Clonazepam (KlonoPIN) 0.125 mg TID PO Last administered on 02/04/19at 20:18; Start 01/27/19 at 09:00 Paroxetine HCl (Paxil) 40 mg DAILY PO Last administered on 02/01/19 08:27; Start 01/27/19 at 09:00; Stop 02/01/19 at 18:49; Status DC Trazodone HCl (Desyrel) 12.5 mg QHS PO ; Start 01/27/19 at 21:00; Stop 01/27/19 at 21:00; Status DC Olanzapine (ZyPREXA ZYDIS) 2.5 mg PRN Q2HR PRN PO PSYCHOSIS Last administered on 01/31/19 08:47; Start 01/27/19 at 01:00; Stop 01/31/19 at 20:14; Status DC Acetaminophen (Tylenol) 650 mg PRN QID PRN PO PAIN; Start 01/27/19 at 01:00 Albuterol Sulfate (Ventolin) 1 mg PRN Q6HRS PRN INH SHORTNESS OF BREATH; Start 01/27/19 at 01:00 Aspirin (Hira Aspirin) 325 mg DAILYWBKFT PO Last administered on 02/01/19 08: 27; Start 01/27/19 at 08:00; Stop 02/01/19 at 13:38; Status DC Clonidine HCl (Catapres) 0.1 mg PRN DAILY PRN PO HYPERTENSION, SEE COMMENTS; Start 01/27/19 at 01:00 Clopidogrel Bisulfate (Plavix) 75 mg DAILY PO Last administered on 02/04/19 11: 29; Start 01/27/19 at 09:00 Gabapentin (Neurontin) 100 mg BID94 PO Last administered on 02/04/19 16:53; Start 01/27/19 at 09:00 Gabapentin (Neurontin) 100 mg QHS PO Last administered on 02/04/19 20:17; Start 01/27/19 at 21:00 Levothyroxine Sodium (Synthroid) 75 mcg DAILY06 PO Last administered on 11:29; Start 01/27/19 at 06:00 Losartan Potassium (Cozaar) 50 mg DAILY PO Last administered on 01/27/19 13:26 ; Start 01/27/19 at 09:00; Stop 01/27/19 at 14:32; Status DC Tamsulosin HCl (Flomax) 0.4 mg DAILY PO Last administered on 02/04/19 11:29; Start 01/27/19 at 09:00 Multivitamins/ Minerals (I-Alis) 1 tab BID PO Last administered on 02/04/19 20: 16; Start 01/27/19 at 09:00 Allopurinol (Zyloprim) 150 mg DAILY PO Last administered on 02/04/19 11:27; Start 01/27/19 at 09:00 Non-Formulary Medication (Aloe Vera/ Collagen (Sensi-Care Perineal Cleanser)) 1 edyta BID TP ; Start 01/27/19 at 09:00; Stop 01/27/19 at 09:00; Status DC Atenolol (Tenormin) 100 mg DAILY PO Last administered on 02/04/19 11:28; Start 01/27/19 at 09:00 Atorvastatin Calcium (Lipitor) 40 mg HS PO Last administered on 02/04/19 20:17 ; Start 01/27/19 at 21:00 Brimonidine Tartrate (Alphagan) 1 drop BID OD ; Start 01/27/19 at 09:00; Stop at 12:36; Status DC Dorzolamide HCl (Trusopt) 1 drop BID OD ; Start 01/27/19 at 09:00; Stop at 12:39; Status DC Finasteride (Proscar) 5 mg DAILY PO Last administered on 02/04/19 11:29; Start 01/27/19 at 09:00 Folic Acid (Folic Acid) 1 mg DAILY PO Last administered on 02/01/19 08:26; Start 01/27/19 at 09:00; Stop 02/01/19 at 13:38; Status DC Hydrochlorothiazide (Microzide) 12.5 mg DAILY PO Last administered on 13:27; Start 01/27/19 at 09:00; Stop 01/27/19 at 14:32; Status DC Lactobacillus Rhamnosus (Culturelle) 1 cap DAILY PO Last administered on 11:28; Start 01/27/19 at 09:00 Latanoprost (Xalatan) 1 drop QHS OU Last administered on 02/04/19 21:00; Start 01/27/19 at 21:00 Multivitamins/ Calcium (Thera-M Plus) 1 tab DAILY PO Last administered on 08:26; Start 01/27/19 at 09:00; Stop 02/01/19 at 13:38; Status DC Pantoprazole Sodium (Protonix) 40 mg DAILYAC PO Last administered on 01/28/19 10:03; Start 01/27/19 at 07:30; Stop 01/29/19 at 11:24; Status DC Pilocarpine HCl (Pilocar) 1 drop TID OD ; Start 01/27/19 at 09:00; Stop at 12:38; Status DC Timolol Maleate (Timoptic 0.5% Ophth) 1 drop BID OD Last administered on 21:00; Start 01/27/19 at 07:15 Brimonidine Tartrate (Alphagan) 1 drop BID OU Last administered on 02/04/19 21: 00; Start 01/27/19 at 12:36 Pilocarpine HCl (Pilocar) 1 drop TID OU Last administered on 02/04/19 21:00; Start 01/27/19 at 12:38 Dorzolamide HCl (Trusopt) 1 drop TID OU Last administered on 02/04/19 21:00; Start 01/27/19 at 14:00 Olanzapine (ZyPREXA ZYDIS) 2.5 mg PRN Q2HR PRN PO PSYCHOSIS; Start 01/27/19 at 17:30; Stop 01/29/19 at 17:13; Status DC Trazodone HCl (Desyrel) 50 mg PRN QHS PRN PO INSOMNIA, MAY REPEAT X1 Last administered on 02/03/19 19:52; Start 01/27/19 at 17:30 Mirtazapine (Remeron) 7.5 mg QHS PO Last administered on 01/31/19 19:55; Start 01/28/19 at 21:00; Stop 02/01/19 at 18:50; Status DC Lansoprazole (Prevacid) 30 mg DAILYAC PO Last administered on 02/04/19 11:27; Start 01/30/19 at 07:30 Tuberculin PPD (Tubersol) 0.1 ml 1X ONCE ID Last administered on 01/30/19at 15: 14; Start 01/30/19 at 14:45; Stop 01/30/19 at 14:52; Status DC Lidocaine (Lidoderm) 1 patch DAILY TD Last administered on 02/04/19 11:30; Start 01/31/19 at 18:00 Miscellaneous (Lidoderm Patch Removal) 1 ea QHS MC Last administered on 21:00; Start 02/01/19 at 03:00 Olanzapine (ZyPREXA ZYDIS) 5 mg PRN Q2HR PRN PO PSYCHOSIS Last administered on 02/03/19 21:25; Start 01/31/19 at 20:15 Aspirin (Children'S Aspirin) 81 mg DAILYWBKFT PO Last administered on 02/04/19 11:29; Start 02/02/19 at 08:00 Paroxetine HCl (Paxil) 30 mg DAILY PO Last administered on 02/04/19 11:29; Start 02/02/19 at 09:00; Stop 02/04/19 at 12:49; Status DC Mirtazapine (Remeron) 15 mg QHS PO Last administered on 02/04/19 20:18; Start 02/01/19 at 21:00 Clonazepam (KlonoPIN) 0.25 mg 1X ONCE PO Last administered on 02/01/19 23:48; Start 02/02/19 at 00:00; Stop 02/02/19 at 00:01; Status DC Clonazepam (KlonoPIN) 0.25 mg 1X ONCE PO Last administered on 02/02/19 01:47; Start 02/02/19 at 02:00; Stop 02/02/19 at 02:01; Status DC Olanzapine (ZyPREXA IM) 5 mg DAILY IM ; Start 02/04/19 at 09:00; Stop 02/04/19 at 09:00; Status DC Lorazepam (Ativan) 0.5 mg DAILY IM ; Start 02/04/19 at 09:00; Stop 02/04/19 at 09: 00; Status DC Lorazepam (Ativan) 0.5 mg DAILY IM Last administered on 02/03/19 11:43; Start 02/03/19 at 11:45 Olanzapine (ZyPREXA IM) 5 mg DAILY IM Last administered on 02/03/19 11:44; Start 02/03/19 at 11:45 Paroxetine HCl (Paxil) 20 mg DAILY PO ; Start 02/05/19 at 09:00; Stop 02/08/19 at 08:59 Paroxetine HCl (Paxil) 10 mg DAILY PO ; Start 02/08/19 at 09:00; Stop 02/11/19 at 08:59 Paroxetine HCl (Paxil) 5 mg DAILY PO ; Start 02/11/19 at 09:00; Stop 02/14/19 at 08:59 Active Scripts Active Reported Sensi-Care Perineal Cleanser (Aloe Vera/Collagen) 118 Ml Solution 1 Edyta TP BID Paroxetine Hcl 40 Mg Tablet 40 Mg PO DAILY Trazodone Hcl 50 Mg Tablet 12.5 Mg PO QHS Dorzolamide Hcl 10 Ml Drops 1 Drp OD BID Timoptic (Timolol Maleate) 10 Ml Drops 1 Drp OD BID Pilocarpine Hcl 5 Mg Tablet 1 Drop OD TID Latanoprost 2.5 Ml Drops 1 Drop OU QHS Alphagan P (Brimonidine Tartrate) 5 Ml Drops 1 Drop OD BID Pantoprazole Sodium 40 Mg Tablet.dr 40 Mg PO DAILY Cozaar (Losartan Potassium) 50 Mg Tablet 50 Mg PO DAILY Levothyroxine Sodium 75 Mcg Tablet 75 Mcg PO DAILYAC Culturelle (Lactobacillus Rhamnosus Gg) 1 Each Capsule 1 Each PO DAILY Gabapentin (Gabapentin) 100 Mg Capsule 100 Mg PO QHS Gabapentin (Gabapentin) 100 Mg Capsule 100 Mg PO BID Finasteride 5 Mg Tablet 5 Mg PO DAILY Clonidine Hcl 0.1 Mg Tablet 0.1 Mg PO PRN DAILY PRN Lipitor (Atorvastatin Calcium) 40 Mg Tablet 40 Mg PO DAILY Atenolol 100 Mg Tablet 100 Mg PO DAILY Allopurinol 300 Mg Tablet 150 Mg PO DAILY Proair Hfa Inhaler (Albuterol Sulfate) 8.5 Gm Hfa.aer.ad 1 Puff INH PRN Q6HRS PRN Multivitamins (Multivitamin) 1 Each Tablet 1 Each PO DAILY Aspirin 325 Mg Tablet 325 Mg PO DAILY Folic Acid 1 Mg Tablet 1 Mg PO DAILY Clopidogrel (Clopidogrel Bisulfate) 75 Mg Tablet 75 Mg PO DAILY Macuvite Eye Care Tablet (A/C/E/Zinc Ox/Cupric Ox/Lutein) 1 Each Tablet 1 Each PO BID Tylenol (Acetaminophen) 325 Mg Tablet 650 Mg PO PRN QID PRN Clonazepam 0.125 Mg Tab.rapdis 0.125 Mg PO TID Tamsulosin Hcl 0.4 Mg Cap.er.24h 0.4 Mg PO DAILY Hydrochlorothiazide Tablet (Hydrochlorothiazide) 12.5 Mg Tablet 12.5 Mg PO DAILY I have reviewed the current psychotropics carefully including drug interactions. Risk benefit ratio favors no change other than as noted in my dictated progress note. Diagnosis: Problems: (1) Medical clearance for psychiatric admission (2) Anxiety disorder (3) Dementia with behavioral disturbance (4) Dementia, vascular, with delusions (5) Dementia, vascular, with depression (6) Dementia in Alzheimer's disease with delusions (7) Dementia in Alzheimer's disease with depression (8) Impulse control disorder PAOLO THOMAS MD Feb 04, 2019 22:21
--- NOTE | 2019-02-05 00:59 | NUR ---
Pt located in dayroom this evening. Pt anxious at times, asking for a phone because he needed to get to work. Medications crushed and consumed in vanilla ice cream. No agitation or aggression noted.
[2019-02-05] MEDS: LEVOTHYROXINE 75 MCG TABLET PO SCH (05:39)
[2019-02-05 06:08] VITALS: BP 140/74
[2019-02-05] MEDS: ASPIRIN 81 MG TAB.CHEW PO SCH (08:34)
[2019-02-05] MEDS: FINASTERIDE 5 MG TABLET PO SCH (08:34)
[2019-02-05] MEDS: LACTOBACILLUS RHAMNOSUS GG 1 CAPSULE. PO SCH (08:34)
[2019-02-05] MEDS: TAMSULOSIN 0.4 MG CAP.ER.24H. PO SCH ×3 (08:34→21:00)
[2019-02-05] MEDS: GABAPENTIN 100 MG CAPSULE. PO SCH (08:34)
[2019-02-05] MEDS: LANSOPRAZOLE 30 MG TAB.RAP.DR PO SCH (08:34)
[2019-02-05] MEDS: MULTIVITAMIN I-VITE TABLET. PO SCH ×3 (08:34→21:00)
[2019-02-05] MEDS: PARoxetine 20 MG TABLET PO SCH (08:35)
[2019-02-05] MEDS: ALLOPURINOL 100 MG TABLET. PO SCH (08:35)
[2019-02-05] MEDS: BRIMONIDINE 0.2% OPHTH SOLUTION 5ML BOTTLE. OU SCH ×2 (08:35→20:40)
[2019-02-05] MEDS: CLOPIDOGREL BISULFATE 75 MG TABLET PO SCH (08:35)
[2019-02-05] MEDS: LIDOCAINE (700MG/PATCH) PATCH. TD SCH (08:35)
[2019-02-05] MEDS: clonazePAM 0.5 MG TABLET PO SCH ×5 (08:35→22:04)
[2019-02-05] MEDS: TIMOLOL 0.5% OPHTH SOLUTION 5ML BOTTLE. OD SCH ×2 (08:35→20:40)
[2019-02-05] MEDS: PILOCARPINE 1% OPHTH SOLUTION 15ML BOTTLE. OU SCH ×3 (08:36→20:40)
[2019-02-05] MEDS: DORZOLAMIDE 2% OPHTH SOLUTION 10ML BOTTLE. OU SCH ×3 (08:36→20:40)
[2019-02-05] MEDS: ATENOLOL 50 MG TABLET PO SCH (08:37)
--- NOTE | 2019-02-05 09:30 | NUR ---
WEEKLY ACTIVITY THERAPY NOTE Date of Admission: 01/27/2019 Date of AT Assessment: 01/30/2019 Goal aimed: To increase time management and recreation education. Initial goal: Pt. will participate in at least three (Activity Therapy) groups or individual activities per week. Weekly progress towards goal: Did not achieve Group participation level: zero Behaviors observed: often restless in chair, spends some time in the secured hallway, not around group often, keeps to self Plan: no change to goal
--- NOTE | 2019-02-05 10:06 | NUR ---
Behavior Intervention Response and Plan: BIRP Note: Behavior: Assumed Care of patient, patient located in Patient Room at shift change. Patient exhibited the following behavior Calm, Interactive, Compliant. Brief assessment on rounds of vital signs, medication needs, lab studies, and pain. Treatment plan problems . Intervention: Patient assessed and the following interventions initiated safety checks 15 Minute Checks Personal Alarm in place , Cognitive Assessment , Head to toe Assessment. Response: After interactions and interventions patient responded in the following manner, Calm , Compliant ,Cooperative. Continue to assess behaviors and condition will continue to monitor throughout the shift as needed. Patient educated on ADL's, and hand hygiene. Plan: Continue to monitor Master Treatment Plan for patient's progress toward short term goals of Decreased Agitation, Medication Compliance, prison goals to return to previous living setting vs placement. Continue to assess patient for changes in above assessment. Monitor for medication needs, pain, and safety concerns. Hourly rounding performed to ensure safe environment.
--- NOTE | 2019-02-05 10:07 | NUR ---
Patient doing much better increased compliance with medication and cares. Patient is easily redirected when needed, interactive, and less aggression shown. Will continue to monitor patient.
--- NOTE | 2019-02-05 10:50 | NUR ---
WEEKLY NOTE: Pt son, Chino and his , Toyin, participated in tx team in person. Pt this morning and was very interactive with staff; was medication compliant and eating well. Pt was given the IM Ativan this morning but he Zyprexa IM was held. Pt in the last week has been combative with staff during times of restlessness and threatening to hurt staff. Pt son reports that he is appearing to "come out of everything and looking much better". Pt has placement at [facility] which is considered as an NURSING HOME/Memory Care; who will be out to complete the assessment early part of next week. Pt son has requested to see if Dr. Mobley will contact pt outpt psychiatrist. Pt son is concerned about the Gabapentin and the outpt psychiatrist feels that it is something that pt does not need. Pt psychiatrist has agreed to decrease it but will ask that the hospitalist look at the medication. Pt is being tapered off Prozac and Paxil. Pt head CT came back inclusive and his creatine levels. Pt dtr in law also had concerns about other medications and discussed those. Family would like the less medications the better; they want to just focus on what is actually needed (e.g. discharging Folic Acid, the lactobacillus, and other medical medications). Pt brought in a cream to have put on pt legs as a PRN medication if possible. The internalist will be asked to contact the family again about getting these medications discharged as soon as possible.
--- NOTE | 2019-02-05 11:39 | NUR ---
Call placed to Radha, residential specialist at [facility], to request she complete her evaluation sometime early next week as tentative d/c date will be mid-late next week. Left message, awaiting return phone call.
[2019-02-05 16:27] VITALS: BP 115/68
--- NOTE | 2019-02-05 17:13 | NUR ---
During treatment team patient son and daughter in law expressed they would like to D/C some of patients medications that are not of urgent need if he does not take them. The medications they would like D/C'd would be the gabapentin, multi-vitamin, and finastride. They would also like to change the flomax from am to hs and advised the drozolomide eye drops are not tid but he takes them bid in the am and pm. Dr Francois came in today and made the requested changes, the family would also like Dr Zurita to D/C one of the scheduled IM injections but not both, advised once Dr Zurita comes back in I will discuss with him, patient did not receive the zyprexa IM this am because after the ativan injection patient fell asleep and had no behaviors. Patient son also wants Dr. Zurita to explain to him the differences in the outcomes of zoloft compared to paxil, will also discuss with Dr. Zurita when he is available. Patient did really well today during breakfast, lunch, and dinner. Patient did not have any verbal aggression or physical aggression he has been pleasant and interactive with staff and others today.
--- NOTE | 2019-02-05 17:58 | NUR ---
Pt had a good day today, interactive with staff and others patient pleasant, up to dining room for all meals eats meals well really likes ice cream son came for lunch and dinner visit wanted a copy of med list and confirmed changes made once I got everything printed he was gone put the med list in the patient book behind his picture. Patient compliant with all medication administration as well as cares. Patient starting to answer questions and participate in conversations more appropriately, patient son was very impressed with the progress he is making and thanks all staff working with his father.
--- NOTE | 2019-02-05 18:33 | NUR ---
Per Dr. Zurita ok to D/C IM Daily zyprexa 5mg. Dr. Zurita also clarified the differences between zoloft and paxil. Paxil can cause more confusion than zoloft (relay this information to patient son when he visits again).
[2019-02-05] MEDS: ATORVASTATIN CALCIUM 20 MG TABLET PO SCH ×2 (20:13→21:00)
[2019-02-05] MEDS: MIRTAZAPINE 15 MG TABLET PO SCH ×3 (20:14→22:04)
[2019-02-05] MEDS: PATCH REMOVAL. MC SCH (20:16)
[2019-02-05] MEDS: traZODone 50 MG TABLET. PO PRN (20:18)
[2019-02-05] MEDS: LATANOPROST 0.005% OPHTH SOLUTION 2.5ML BOTTLE. OU SCH (20:40)
[2019-02-05] MEDS ORDERED: NYSTATIN TOPICAL POWDER 15GM BOTTLE. TP ONE (21:04)
[2019-02-05] MEDS: NYSTATIN TOPICAL POWDER 15GM BOTTLE. TP SCH (21:30)
--- NOTE | 2019-02-05 22:15 | PDOC ---
Exam Note: Scott Note: Please also refer to the separate dictated note~for this date of service dictated separately.~Patient seen individually. Discussed the patient with Nursing staff reviewed the chart.~Reviewed interim history and current functioning. Reviewed vital signs,~Labs/ Radiology~and current medications noted below. Continue current treatment with the changes noted in the dictated addendum note Assessment: Vital Signs: Vital Signs Date Time Temp Pulse Resp B/P (MAP) Pulse Ox O2 Delivery O2 Flow Rate FiO2 02/05/19 16:27 97.5 61 16 115/68 (84) 94 Room Air I&O Intake and Output 02/05/19 06:59 Intake Total 720 ml Balance 720 ml Intake Oral 720 ml # Voids 1 Current Medications: Meds: Current Medications Sodium Chloride 1,000 ml @ 1,000 mls/hr 1X ONCE IV Last administered on at 17:31; Start 01/26/19 at 17:30; Stop 01/26/19 at 18:29; Status DC Lorazepam (Ativan) 1 mg 1X ONCE IV Last administered on 01/26/19at 21:22; Start 01/26/19 at 21:15; Stop 01/26/19 at 21:23; Status DC Lorazepam (Ativan) 1 mg 1X ONCE IV Last administered on 01/26/19at 22:44; Start 01/26/19 at 22:30; Stop 01/26/19 at 22:32; Status DC Acetaminophen (Tylenol) 650 mg PRN Q6HRS PRN PO PAIN / TEMP; Start 01/27/19 at 00:00; Status Cancel Multi-Ingredient Ointment (Analgesic Oxford) 1 edyta PRN QID PRN TP MUSCLE PAIN; Start 01/27/19 at 00:00 Al Hydroxide/Mg Hydroxide (Mylanta Plus Xs) 15 ml PRN AFTMEALHC PRN PO DYSPEPSIA; Start 01/27/19 at 00:00 Magnesium Hydroxide (Milk Of Magnesia) 2,400 mg PRN QHS PRN PO CONSTIPATION Last administered on 02/03/19at 08:05; Start 01/27/19 at 00:00 Clonazepam (KlonoPIN) 0.125 mg TID PO Last administered on 02/05/19at 22:04; Start 01/27/19 at 09:00 Paroxetine HCl (Paxil) 40 mg DAILY PO Last administered on 02/01/19 08:27; Start 01/27/19 at 09:00; Stop 02/01/19 at 18:49; Status DC Trazodone HCl (Desyrel) 12.5 mg QHS PO ; Start 01/27/19 at 21:00; Stop 01/27/19 at 21:00; Status DC Olanzapine (ZyPREXA ZYDIS) 2.5 mg PRN Q2HR PRN PO PSYCHOSIS Last administered on 01/31/19 08:47; Start 01/27/19 at 01:00; Stop 01/31/19 at 20:14; Status DC Acetaminophen (Tylenol) 650 mg PRN QID PRN PO PAIN; Start 01/27/19 at 01:00 Albuterol Sulfate (Ventolin) 1 mg PRN Q6HRS PRN INH SHORTNESS OF BREATH; Start 01/27/19 at 01:00 Aspirin (Hira Aspirin) 325 mg DAILYWBKFT PO Last administered on 02/01/19 08: 27; Start 01/27/19 at 08:00; Stop 02/01/19 at 13:38; Status DC Clonidine HCl (Catapres) 0.1 mg PRN DAILY PRN PO HYPERTENSION, SEE COMMENTS; Start 01/27/19 at 01:00 Clopidogrel Bisulfate (Plavix) 75 mg DAILY PO Last administered on 02/05/19 08: 35; Start 01/27/19 at 09:00 Gabapentin (Neurontin) 100 mg BID94 PO Last administered on 02/05/19 08:34; Start 01/27/19 at 09:00; Stop 02/05/19 at 16:10; Status DC Gabapentin (Neurontin) 100 mg QHS PO Last administered on 02/04/19 20:17; Start 01/27/19 at 21:00; Stop 02/05/19 at 16:10; Status DC Levothyroxine Sodium (Synthroid) 75 mcg DAILY06 PO Last administered on 05:39; Start 01/27/19 at 06:00 Losartan Potassium (Cozaar) 50 mg DAILY PO Last administered on 01/27/19 13:26 ; Start 01/27/19 at 09:00; Stop 01/27/19 at 14:32; Status DC Tamsulosin HCl (Flomax) 0.4 mg DAILY PO Last administered on 02/05/19 08:34; Start 01/27/19 at 09:00; Stop 02/05/19 at 16:10; Status DC Multivitamins/ Minerals (I-Alis) 1 tab BID PO Last administered on 02/05/19 08: 34; Start 01/27/19 at 09:00 Allopurinol (Zyloprim) 150 mg DAILY PO Last administered on 02/05/19 08:35; Start 01/27/19 at 09:00 Non-Formulary Medication (Aloe Vera/ Collagen (Sensi-Care Perineal Cleanser)) 1 edyta BID TP ; Start 01/27/19 at 09:00; Stop 01/27/19 at 09:00; Status DC Atenolol (Tenormin) 100 mg DAILY PO Last administered on 02/05/19 08:37; Start 01/27/19 at 09:00 Atorvastatin Calcium (Lipitor) 40 mg HS PO Last administered on 02/04/19at 20:17 ; Start 01/27/19 at 21:00 Brimonidine Tartrate (Alphagan) 1 drop BID OD ; Start 01/27/19 at 09:00; Stop at 12:36; Status DC Dorzolamide HCl (Trusopt) 1 drop BID OD ; Start 01/27/19 at 09:00; Stop at 12:39; Status DC Finasteride (Proscar) 5 mg DAILY PO Last administered on 02/05/19 08:34; Start 01/27/19 at 09:00; Stop 02/05/19 at 16:10; Status DC Folic Acid (Folic Acid) 1 mg DAILY PO Last administered on 02/01/19 08:26; Start 01/27/19 at 09:00; Stop 02/01/19 at 13:38; Status DC Hydrochlorothiazide (Microzide) 12.5 mg DAILY PO Last administered on 13:27; Start 01/27/19 at 09:00; Stop 01/27/19 at 14:32; Status DC Lactobacillus Rhamnosus (Culturelle) 1 cap DAILY PO Last administered on 08:34; Start 01/27/19 at 09:00; Stop 02/05/19 at 16:10; Status DC Latanoprost (Xalatan) 1 drop QHS OU Last administered on 02/04/19 21:00; Start 01/27/19 at 21:00 Multivitamins/ Calcium (Thera-M Plus) 1 tab DAILY PO Last administered on 08:26; Start 01/27/19 at 09:00; Stop 02/01/19 at 13:38; Status DC Pantoprazole Sodium (Protonix) 40 mg DAILYAC PO Last administered on 01/28/19 10:03; Start 01/27/19 at 07:30; Stop 01/29/19 at 11:24; Status DC Pilocarpine HCl (Pilocar) 1 drop TID OD ; Start 01/27/19 at 09:00; Stop at 12:38; Status DC Timolol Maleate (Timoptic 0.5% Ophth) 1 drop BID OD Last administered on 08:35; Start 01/27/19 at 07:15 Brimonidine Tartrate (Alphagan) 1 drop BID OU Last administered on 02/05/19 08: 35; Start 01/27/19 at 12:36 Pilocarpine HCl (Pilocar) 1 drop TID OU Last administered on 02/05/19 14:00; Start 01/27/19 at 12:38 Dorzolamide HCl (Trusopt) 1 drop TID OU Last administered on 02/05/19 14:00; Start 01/27/19 at 14:00; Stop 02/05/19 at 16:11; Status DC Olanzapine (ZyPREXA ZYDIS) 2.5 mg PRN Q2HR PRN PO PSYCHOSIS; Start 01/27/19 at 17:30; Stop 01/29/19 at 17:13; Status DC Trazodone HCl (Desyrel) 50 mg PRN QHS PRN PO INSOMNIA, MAY REPEAT X1 Last administered on 02/05/19 20:18; Start 01/27/19 at 17:30 Mirtazapine (Remeron) 7.5 mg QHS PO Last administered on 01/31/19 19:55; Start 01/28/19 at 21:00; Stop 02/01/19 at 18:50; Status DC Lansoprazole (Prevacid) 30 mg DAILYAC PO Last administered on 02/05/19 08:34; Start 01/30/19 at 07:30 Tuberculin PPD (Tubersol) 0.1 ml 1X ONCE ID Last administered on 01/30/19 15: 14; Start 01/30/19 at 14:45; Stop 01/30/19 at 14:52; Status DC Lidocaine (Lidoderm) 1 patch DAILY TD Last administered on 02/05/19 08:35; Start 01/31/19 at 18:00 Miscellaneous (Lidoderm Patch Removal) 1 ea QHS MC Last administered on 20:16; Start 02/01/19 at 03:00 Olanzapine (ZyPREXA ZYDIS) 5 mg PRN Q2HR PRN PO PSYCHOSIS Last administered on 02/05/19 22:04; Start 01/31/19 at 20:15 Aspirin (Children'S Aspirin) 81 mg DAILYWBKFT PO Last administered on 02/05/19 08:34; Start 02/02/19 at 08:00 Paroxetine HCl (Paxil) 30 mg DAILY PO Last administered on 02/04/19 11:29; Start 02/02/19 at 09:00; Stop 02/04/19 at 12:49; Status DC Mirtazapine (Remeron) 15 mg QHS PO Last administered on 02/05/19 22:04; Start 02/01/19 at 21:00 Clonazepam (KlonoPIN) 0.25 mg 1X ONCE PO Last administered on 02/01/19 23:48; Start 02/02/19 at 00:00; Stop 02/02/19 at 00:01; Status DC Clonazepam (KlonoPIN) 0.25 mg 1X ONCE PO Last administered on 02/02/19 01:47; Start 02/02/19 at 02:00; Stop 02/02/19 at 02:01; Status DC Olanzapine (ZyPREXA IM) 5 mg DAILY IM ; Start 02/04/19 at 09:00; Stop 02/04/19 at 09:00; Status DC Lorazepam (Ativan) 0.5 mg DAILY IM ; Start 02/04/19 at 09:00; Stop 02/04/19 at 09: 00; Status DC Lorazepam (Ativan) 0.5 mg DAILY IM Last administered on 02/05/19at 08:38; Start 02/03/19 at 11:45 Olanzapine (ZyPREXA IM) 5 mg DAILY IM Last administered on 02/03/19at 11:44; Start 02/03/19 at 11:45; Stop 02/05/19 at 18:32; Status DC Paroxetine HCl (Paxil) 20 mg DAILY PO Last administered on 02/05/19at 08:35; Start 02/05/19 at 09:00; Stop 02/08/19 at 08:59 Paroxetine HCl (Paxil) 10 mg DAILY PO ; Start 02/08/19 at 09:00; Stop 02/11/19 at 08:59 Paroxetine HCl (Paxil) 5 mg DAILY PO ; Start 02/11/19 at 09:00; Stop 02/14/19 at 08:59 Tamsulosin HCl (Flomax) 0.4 mg QHS PO ; Start 02/05/19 at 21:00 Dorzolamide HCl (Trusopt) 1 drop BID OU ; Start 02/05/19 at 21:00 Nystatin (Nystop) 15 edyta STK-MED ONCE TP Last administered on 02/05/19at 21:04; Start 02/05/19 at 21:04; Stop 02/05/19 at 21:05; Status DC Nystatin (Nystop) 1 edyta BID TP Last administered on 02/05/19at 21:30; Start at 21:30 Active Scripts Active Reported Sensi-Care Perineal Cleanser (Aloe Vera/Collagen) 118 Ml Solution 1 Edyta TP BID Paroxetine Hcl 40 Mg Tablet 40 Mg PO DAILY Trazodone Hcl 50 Mg Tablet 12.5 Mg PO QHS Dorzolamide Hcl 10 Ml Drops 1 Drp OD BID Timoptic (Timolol Maleate) 10 Ml Drops 1 Drp OD BID Pilocarpine Hcl 5 Mg Tablet 1 Drop OD TID Latanoprost 2.5 Ml Drops 1 Drop OU QHS Alphagan P (Brimonidine Tartrate) 5 Ml Drops 1 Drop OD BID Pantoprazole Sodium 40 Mg Tablet.dr 40 Mg PO DAILY Cozaar (Losartan Potassium) 50 Mg Tablet 50 Mg PO DAILY Levothyroxine Sodium 75 Mcg Tablet 75 Mcg PO DAILYAC Culturelle (Lactobacillus Rhamnosus Gg) 1 Each Capsule 1 Each PO DAILY Gabapentin (Gabapentin) 100 Mg Capsule 100 Mg PO QHS Gabapentin (Gabapentin) 100 Mg Capsule 100 Mg PO BID Finasteride 5 Mg Tablet 5 Mg PO DAILY Clonidine Hcl 0.1 Mg Tablet 0.1 Mg PO PRN DAILY PRN Lipitor (Atorvastatin Calcium) 40 Mg Tablet 40 Mg PO DAILY Atenolol 100 Mg Tablet 100 Mg PO DAILY Allopurinol 300 Mg Tablet 150 Mg PO DAILY Proair Hfa Inhaler (Albuterol Sulfate) 8.5 Gm Hfa.aer.ad 1 Puff INH PRN Q6HRS PRN Multivitamins (Multivitamin) 1 Each Tablet 1 Each PO DAILY Aspirin 325 Mg Tablet 325 Mg PO DAILY Folic Acid 1 Mg Tablet 1 Mg PO DAILY Clopidogrel (Clopidogrel Bisulfate) 75 Mg Tablet 75 Mg PO DAILY Macuvite [employer] Tablet (A/C/E/Zinc Ox/Cupric Ox/Lutein) 1 Each Tablet 1 Each PO BID Tylenol (Acetaminophen) 325 Mg Tablet 650 Mg PO PRN QID PRN Clonazepam 0.125 Mg Tab.rapdis 0.125 Mg PO TID Tamsulosin Hcl 0.4 Mg Cap.er.24h 0.4 Mg PO DAILY Hydrochlorothiazide Tablet (Hydrochlorothiazide) 12.5 Mg Tablet 12.5 Mg PO DAILY I have reviewed the current psychotropics carefully including drug interactions. Risk benefit ratio favors no change other than as noted in my dictated progress note. Diagnosis: Problems: (1) Medical clearance for psychiatric admission (2) Anxiety disorder (3) Dementia with behavioral disturbance (4) Dementia, vascular, with delusions (5) Dementia, vascular, with depression (6) Dementia in Alzheimer's disease with delusions (7) Dementia in Alzheimer's disease with depression (8) Impulse control disorder PAOLO THOMAS MD Feb 05, 2019 22:15
[2019-02-06] MEDS: traZODone 50 MG TABLET. PO PRN ×2 (01:00→19:42)
--- NOTE | 2019-02-06 01:12 | NUR ---
Pt located in the dayroom this evening. Staff x2 attempted to shower pt since it was reported he had a good day. Staff immediately called for assistance d/t pt becoming extremely combative; hitting, kicking, attempting to punch and pinch staff. Pt taken to the dayroom after the shower. Pt delusional, calling out "control engineer, stop this train." Pt also asked another male pt if he "had a gun so he can get the hell out of here." Pt appears to be hallucinating as well, reaching for things that are not there. This nurse attempted to administer pt's meds in ice cream. Pt attempted to hit nurse and then threw the ice cream container at [facility]. Pt attempting to hit or kick anyone that comes near him. Pt taken to his bed with staff x4, where he was extremely combative and resistive. Pt restless in bed and was taken to the quiet room floor for safety. Pt toileted with staff x4 due to his aggression. Medications (Remeron, Trazodone, Zyprexa and Klonopin) were crushed and administered sublingually with assistance x4. Pt continued to be restless and yelling out from the quiet room. Pt calling for Mary and calling for Velma, stating that if "you don't come here now, I'm giving you a spanking." Pt repeatedly taking off his gown and combative with staff when attempting to put the gown back on. Onesie placed on pt with staff x5. Pt continues with behaviors, continues to call out and restless on the floor. Repeat Trazodone and PRN Zyprexa administered sublingually at 0100.
[2019-02-06] MEDS: LEVOTHYROXINE 75 MCG TABLET PO SCH (05:32)
--- NOTE | 2019-02-06 05:38 | NUR ---
Pt continued to be restless and combative throughout the night. Pt did not sleep at all. This nurse attempted to administer Synthroid this morning in a bite of pudding. Pt took the spoon and proceeded to bite and break the spoon. Pt then spit the pudding out and threw the spoon. Pt continues to attempt to hit and kick anyone that comes near him.
[2019-02-06] MEDS: PARoxetine 20 MG TABLET PO SCH (10:00)
[2019-02-06] MEDS: ALLOPURINOL 100 MG TABLET. PO SCH (10:00)
[2019-02-06] MEDS: ASPIRIN 81 MG TAB.CHEW PO SCH (10:00)
[2019-02-06] MEDS: MULTIVITAMIN I-VITE TABLET. PO SCH ×2 (10:00→19:34)
[2019-02-06] MEDS: LIDOCAINE (700MG/PATCH) PATCH. TD SCH (10:00)
[2019-02-06] MEDS: CLOPIDOGREL BISULFATE 75 MG TABLET PO SCH (10:01)
[2019-02-06] MEDS: ATENOLOL 50 MG TABLET PO SCH (10:01)
[2019-02-06] MEDS: clonazePAM 0.5 MG TABLET PO SCH ×3 (10:05→19:39)
[2019-02-06] MEDS: LANSOPRAZOLE 30 MG TAB.RAP.DR PO SCH (10:05)
[2019-02-06] MEDS: NYSTATIN TOPICAL POWDER 15GM BOTTLE. TP SCH ×2 (10:05→19:39)
[2019-02-06] MEDS: PILOCARPINE 1% OPHTH SOLUTION 15ML BOTTLE. OU SCH ×3 (10:06→19:38)
[2019-02-06] MEDS: BRIMONIDINE 0.2% OPHTH SOLUTION 5ML BOTTLE. OU SCH ×2 (10:06→19:34)
[2019-02-06] MEDS: TIMOLOL 0.5% OPHTH SOLUTION 5ML BOTTLE. OD SCH ×2 (10:06→19:34)
[2019-02-06] MEDS: DORZOLAMIDE 2% OPHTH SOLUTION 10ML BOTTLE. OU SCH ×2 (10:07→19:37)
--- NOTE | 2019-02-06 12:24 | NUR ---
Patient asking to go home and getting combative. Throwing tray and spitting. PRN zyprexa administered for agitation per order. Addendum: 02/06/19 at 1814 by CELINE BLAKE RN did not administer zyprexa at that time, patients son arrived and was able to calm him down in the [facility]. He fell asleep until 1545. Did NOT administer 1400 meds r/t drowsiness/sleeping of patient.
--- NOTE | 2019-02-06 14:59 | NUR ---
[facility] will be out on 02/09/19 at 2pm to evaluate Kevan for future placement.
--- NOTE | 2019-02-06 18:00 | NUR ---
Patient asking to go home, becoming agitated. Gave PRN zyprexa for agitation and will continue to monitor.
[2019-02-06] MEDS: MIRTAZAPINE 15 MG TABLET PO SCH (19:34)
[2019-02-06] MEDS: LATANOPROST 0.005% OPHTH SOLUTION 2.5ML BOTTLE. OU SCH (19:34)
[2019-02-06] MEDS: ATORVASTATIN CALCIUM 20 MG TABLET PO SCH (19:34)
[2019-02-06] MEDS: TAMSULOSIN 0.4 MG CAP.ER.24H. PO SCH (19:34)
[2019-02-06] MEDS: PATCH REMOVAL. MC SCH (19:39)
--- NOTE | 2019-02-06 20:59 | PN ---
DATE: 02/05/2019 PSYCHIATRIC PROGRESS NOTE This late entry 02/05/2019 covers elements not covered in my initial note. SUBJECTIVE: I met with the patient in the evening and staffed at a treatment team meeting with the entire team with the patient's son, Chino and [id number], Toyin attending. A very lengthy discussion about the patient's diagnosis, current medications. Family wanted to take him off some of the nonpsychotropic medications and we were agreeable to that, but will defer to Dr. Francois. The son has consulted by Dr. Marino as well and informed me that Dr. Marino had considered Zoloft as well. They are also requesting Neurontin to be tapered and stopped and we will go ahead and do that. He has been accepted at [facility] and we discussed that transition. REVIEW OF SYSTEMS: Ambulation impaired, in wheelchair. No CV, , pulmonary, eye, ENT system symptoms on review. Reliability poor. MENTAL STATUS EXAM: Oriented to himself. Insight, judgment, recent and remote memory, attention, concentration, fund of knowledge poor, consistent with his diagnosis. IMPRESSION: Major neurocognitive disorder, Alzheimer, vascular with delusion, depression, behavioral disturbance; anxiety disorder, unspecified; impulse control disorder, unspecified. PLAN: Make the changes noted above including trying to get him off the Flomax and Proscar and the others that I will defer to Dr. Francois and taper and stop the Neurontin. We are tapering the Paxil, will consider changing to Zoloft. Rest unchanged. MAN Modesta THOMAS MD DR: JOYCE/krzysztof JOB#: [id number] / [id number]
--- NOTE | 2019-02-06 21:00 | PN ---
DATE: 02/04/2019 PSYCHIATRIC PROGRESS NOTE This late entry 02/04/2019 covers elements not covered in my initial note. SUBJECTIVE: I met with the patient in the evening. The patient has been resistive to getting up in the morning, less combative, did not receive IM medication on 02/04/2019. Slept 6 hours. REVIEW OF SYSTEMS: Ambulation impaired, in wheelchair. No CV, , pulmonary, eye, ENT system symptoms on review. Reliability poor. MENTAL STATUS EXAM: Oriented to himself. Insight, judgment, recent and remote memory, attention, concentration, fund of knowledge poor, consistent with his diagnosis mentioned in my initial note. PLAN: We will go ahead and taper and stop the Paxil, reducing by 10 mg every 3 days until we stopped it. May consider using Zoloft instead since Paxil has rather stronger central anticholinergic side effects. Continue rest unchanged. MAN Modesta THOMAS MD DR: JOYCE/krzysztof JOB#: [id number] / [id number]
--- NOTE | 2019-02-06 22:34 | PDOC ---
Exam Note: Scott Note: Please also refer to the separate dictated note~for this date of service dictated separately.~Patient seen individually. Discussed the patient with Nursing staff reviewed the chart.~Reviewed interim history and current functioning. Reviewed vital signs,~Labs/ Radiology~and current medications noted below. Continue current treatment with the changes noted in the dictated addendum note Assessment: Vital Signs: Vital Signs Date Time Temp Pulse Resp B/P (MAP) Pulse Ox O2 Delivery O2 Flow Rate FiO2 02/06/19 10:01 61 115/68 02/05/19 16:27 97.5 16 94 Room Air I&O Intake and Output 02/06/19 06:59 Intake Total 1080 ml Balance 1080 ml Intake Oral 1080 ml Current Medications: Meds: Current Medications Sodium Chloride 1,000 ml @ 1,000 mls/hr 1X ONCE IV Last administered on at 17:31; Start 01/26/19 at 17:30; Stop 01/26/19 at 18:29; Status DC Lorazepam (Ativan) 1 mg 1X ONCE IV Last administered on 01/26/19at 21:22; Start 01/26/19 at 21:15; Stop 01/26/19 at 21:23; Status DC Lorazepam (Ativan) 1 mg 1X ONCE IV Last administered on 01/26/19at 22:44; Start 01/26/19 at 22:30; Stop 01/26/19 at 22:32; Status DC Acetaminophen (Tylenol) 650 mg PRN Q6HRS PRN PO PAIN / TEMP; Start 01/27/19 at 00:00; Status Cancel Multi-Ingredient Ointment (Analgesic Sanger) 1 edyta PRN QID PRN TP MUSCLE PAIN; Start 01/27/19 at 00:00 Al Hydroxide/Mg Hydroxide (Mylanta Plus Xs) 15 ml PRN AFTMEALHC PRN PO DYSPEPSIA; Start 01/27/19 at 00:00 Magnesium Hydroxide (Milk Of Magnesia) 2,400 mg PRN QHS PRN PO CONSTIPATION Last administered on 02/03/19at 08:05; Start 01/27/19 at 00:00 Clonazepam (KlonoPIN) 0.125 mg TID PO Last administered on 02/06/19at 19:39; Start 01/27/19 at 09:00 Paroxetine HCl (Paxil) 40 mg DAILY PO Last administered on 02/01/19 08:27; Start 01/27/19 at 09:00; Stop 02/01/19 at 18:49; Status DC Trazodone HCl (Desyrel) 12.5 mg QHS PO ; Start 01/27/19 at 21:00; Stop 01/27/19 at 21:00; Status DC Olanzapine (ZyPREXA ZYDIS) 2.5 mg PRN Q2HR PRN PO PSYCHOSIS Last administered on 01/31/19 08:47; Start 01/27/19 at 01:00; Stop 01/31/19 at 20:14; Status DC Acetaminophen (Tylenol) 650 mg PRN QID PRN PO PAIN; Start 01/27/19 at 01:00 Albuterol Sulfate (Ventolin) 1 mg PRN Q6HRS PRN INH SHORTNESS OF BREATH; Start 01/27/19 at 01:00 Aspirin (Hira Aspirin) 325 mg DAILYWBKFT PO Last administered on 02/01/19 08: 27; Start 01/27/19 at 08:00; Stop 02/01/19 at 13:38; Status DC Clonidine HCl (Catapres) 0.1 mg PRN DAILY PRN PO HYPERTENSION, SEE COMMENTS; Start 01/27/19 at 01:00 Clopidogrel Bisulfate (Plavix) 75 mg DAILY PO Last administered on 02/06/19 10: 01; Start 01/27/19 at 09:00 Gabapentin (Neurontin) 100 mg BID94 PO Last administered on 02/05/19 08:34; Start 01/27/19 at 09:00; Stop 02/05/19 at 16:10; Status DC Gabapentin (Neurontin) 100 mg QHS PO Last administered on 02/04/19 20:17; Start 01/27/19 at 21:00; Stop 02/05/19 at 16:10; Status DC Levothyroxine Sodium (Synthroid) 75 mcg DAILY06 PO Last administered on 05:32; Start 01/27/19 at 06:00 Losartan Potassium (Cozaar) 50 mg DAILY PO Last administered on 01/27/19 13:26 ; Start 01/27/19 at 09:00; Stop 01/27/19 at 14:32; Status DC Tamsulosin HCl (Flomax) 0.4 mg DAILY PO Last administered on 02/05/19 08:34; Start 01/27/19 at 09:00; Stop 02/05/19 at 16:10; Status DC Multivitamins/ Minerals (I-Alis) 1 tab BID PO Last administered on 02/06/19 19: 34; Start 01/27/19 at 09:00 Allopurinol (Zyloprim) 150 mg DAILY PO Last administered on 02/06/19 10:00; Start 01/27/19 at 09:00 Non-Formulary Medication (Aloe Vera/ Collagen (Sensi-Care Perineal Cleanser)) 1 edyta BID TP ; Start 01/27/19 at 09:00; Stop 01/27/19 at 09:00; Status DC Atenolol (Tenormin) 100 mg DAILY PO Last administered on 02/06/19 10:01; Start 01/27/19 at 09:00 Atorvastatin Calcium (Lipitor) 40 mg HS PO Last administered on 02/06/19 19:34 ; Start 01/27/19 at 21:00 Brimonidine Tartrate (Alphagan) 1 drop BID OD ; Start 01/27/19 at 09:00; Stop at 12:36; Status DC Dorzolamide HCl (Trusopt) 1 drop BID OD ; Start 01/27/19 at 09:00; Stop at 12:39; Status DC Finasteride (Proscar) 5 mg DAILY PO Last administered on 02/05/19 08:34; Start 01/27/19 at 09:00; Stop 02/05/19 at 16:10; Status DC Folic Acid (Folic Acid) 1 mg DAILY PO Last administered on 02/01/19 08:26; Start 01/27/19 at 09:00; Stop 02/01/19 at 13:38; Status DC Hydrochlorothiazide (Microzide) 12.5 mg DAILY PO Last administered on 13:27; Start 01/27/19 at 09:00; Stop 01/27/19 at 14:32; Status DC Lactobacillus Rhamnosus (Culturelle) 1 cap DAILY PO Last administered on 08:34; Start 01/27/19 at 09:00; Stop 02/05/19 at 16:10; Status DC Latanoprost (Xalatan) 1 drop QHS OU Last administered on 02/06/19 19:34; Start 01/27/19 at 21:00 Multivitamins/ Calcium (Thera-M Plus) 1 tab DAILY PO Last administered on 08:26; Start 01/27/19 at 09:00; Stop 02/01/19 at 13:38; Status DC Pantoprazole Sodium (Protonix) 40 mg DAILYAC PO Last administered on 01/28/19 10:03; Start 01/27/19 at 07:30; Stop 01/29/19 at 11:24; Status DC Pilocarpine HCl (Pilocar) 1 drop TID OD ; Start 01/27/19 at 09:00; Stop at 12:38; Status DC Timolol Maleate (Timoptic 0.5% Ophth) 1 drop BID OD Last administered on 19:34; Start 01/27/19 at 07:15 Brimonidine Tartrate (Alphagan) 1 drop BID OU Last administered on 02/06/19 19: 34; Start 01/27/19 at 12:36 Pilocarpine HCl (Pilocar) 1 drop TID OU Last administered on 02/06/19 19:38; Start 01/27/19 at 12:38 Dorzolamide HCl (Trusopt) 1 drop TID OU Last administered on 02/05/19 14:00; Start 01/27/19 at 14:00; Stop 02/05/19 at 16:11; Status DC Olanzapine (ZyPREXA ZYDIS) 2.5 mg PRN Q2HR PRN PO PSYCHOSIS; Start 01/27/19 at 17:30; Stop 01/29/19 at 17:13; Status DC Trazodone HCl (Desyrel) 50 mg PRN QHS PRN PO INSOMNIA, MAY REPEAT X1 Last administered on 02/06/19 19:42; Start 01/27/19 at 17:30 Mirtazapine (Remeron) 7.5 mg QHS PO Last administered on 01/31/19 19:55; Start 01/28/19 at 21:00; Stop 02/01/19 at 18:50; Status DC Lansoprazole (Prevacid) 30 mg DAILYAC PO Last administered on 02/06/19 10:05; Start 01/30/19 at 07:30 Tuberculin PPD (Tubersol) 0.1 ml 1X ONCE ID Last administered on 01/30/19 15: 14; Start 01/30/19 at 14:45; Stop 01/30/19 at 14:52; Status DC Lidocaine (Lidoderm) 1 patch DAILY TD Last administered on 02/06/19 10:00; Start 01/31/19 at 18:00 Miscellaneous (Lidoderm Patch Removal) 1 ea QHS MC Last administered on 19:39; Start 02/01/19 at 03:00 Olanzapine (ZyPREXA ZYDIS) 5 mg PRN Q2HR PRN PO PSYCHOSIS Last administered on 02/06/19 12:20; Start 01/31/19 at 20:15 Aspirin (Children'S Aspirin) 81 mg DAILYWBKFT PO Last administered on 02/06/19 10:00; Start 02/02/19 at 08:00 Paroxetine HCl (Paxil) 30 mg DAILY PO Last administered on 02/04/19 11:29; Start 02/02/19 at 09:00; Stop 02/04/19 at 12:49; Status DC Mirtazapine (Remeron) 15 mg QHS PO Last administered on 02/06/19 19:34; Start 02/01/19 at 21:00 Clonazepam (KlonoPIN) 0.25 mg 1X ONCE PO Last administered on 02/01/19 23:48; Start 02/02/19 at 00:00; Stop 02/02/19 at 00:01; Status DC Clonazepam (KlonoPIN) 0.25 mg 1X ONCE PO Last administered on 02/02/19 01:47; Start 02/02/19 at 02:00; Stop 02/02/19 at 02:01; Status DC Olanzapine (ZyPREXA IM) 5 mg DAILY IM ; Start 02/04/19 at 09:00; Stop 02/04/19 at 09:00; Status DC Lorazepam (Ativan) 0.5 mg DAILY IM ; Start 02/04/19 at 09:00; Stop 02/04/19 at 09: 00; Status DC Lorazepam (Ativan) 0.5 mg DAILY IM Last administered on 02/05/19at 08:38; Start 02/03/19 at 11:45 Olanzapine (ZyPREXA IM) 5 mg DAILY IM Last administered on 02/03/19at 11:44; Start 02/03/19 at 11:45; Stop 02/05/19 at 18:32; Status DC Paroxetine HCl (Paxil) 20 mg DAILY PO Last administered on 02/06/19at 10:00; Start 02/05/19 at 09:00; Stop 02/08/19 at 08:59 Paroxetine HCl (Paxil) 10 mg DAILY PO ; Start 02/08/19 at 09:00; Stop 02/11/19 at 08:59 Paroxetine HCl (Paxil) 5 mg DAILY PO ; Start 02/11/19 at 09:00; Stop 02/14/19 at 08:59 Tamsulosin HCl (Flomax) 0.4 mg QHS PO Last administered on 02/06/19at 19:34; Start 02/05/19 at 21:00 Dorzolamide HCl (Trusopt) 1 drop BID OU Last administered on 02/06/19 19:37; Start 02/05/19 at 21:00 Nystatin (Nystop) 15 edyta STK-MED ONCE TP Last administered on 02/05/19 21:04; Start 02/05/19 at 21:04; Stop 02/05/19 at 21:05; Status DC Nystatin (Nystop) 1 edyta BID TP Last administered on 02/06/19at 19:39; Start at 21:30 Active Scripts Active Reported Sensi-Care Perineal Cleanser (Aloe Vera/Collagen) 118 Ml Solution 1 Edyta TP BID Paroxetine Hcl 40 Mg Tablet 40 Mg PO DAILY Trazodone Hcl 50 Mg Tablet 12.5 Mg PO QHS Dorzolamide Hcl 10 Ml Drops 1 Drp OD BID Timoptic (Timolol Maleate) 10 Ml Drops 1 Drp OD BID Pilocarpine Hcl 5 Mg Tablet 1 Drop OD TID Latanoprost 2.5 Ml Drops 1 Drop OU QHS Alphagan P (Brimonidine Tartrate) 5 Ml Drops 1 Drop OD BID Pantoprazole Sodium 40 Mg Tablet.dr 40 Mg PO DAILY Cozaar (Losartan Potassium) 50 Mg Tablet 50 Mg PO DAILY Levothyroxine Sodium 75 Mcg Tablet 75 Mcg PO DAILYAC Culturelle (Lactobacillus Rhamnosus Gg) 1 Each Capsule 1 Each PO DAILY Gabapentin (Gabapentin) 100 Mg Capsule 100 Mg PO QHS Gabapentin (Gabapentin) 100 Mg Capsule 100 Mg PO BID Finasteride 5 Mg Tablet 5 Mg PO DAILY Clonidine Hcl 0.1 Mg Tablet 0.1 Mg PO PRN DAILY PRN Lipitor (Atorvastatin Calcium) 40 Mg Tablet 40 Mg PO DAILY Atenolol 100 Mg Tablet 100 Mg PO DAILY Allopurinol 300 Mg Tablet 150 Mg PO DAILY Proair Hfa Inhaler (Albuterol Sulfate) 8.5 Gm Hfa.aer.ad 1 Puff INH PRN Q6HRS PRN Multivitamins (Multivitamin) 1 Each Tablet 1 Each PO DAILY Aspirin 325 Mg Tablet 325 Mg PO DAILY Folic Acid 1 Mg Tablet 1 Mg PO DAILY Clopidogrel (Clopidogrel Bisulfate) 75 Mg Tablet 75 Mg PO DAILY Macuvite [employer] Tablet (A/C/E/Zinc Ox/Cupric Ox/Lutein) 1 Each Tablet 1 Each PO BID Tylenol (Acetaminophen) 325 Mg Tablet 650 Mg PO PRN QID PRN Clonazepam 0.125 Mg Tab.rapdis 0.125 Mg PO TID Tamsulosin Hcl 0.4 Mg Cap.er.24h 0.4 Mg PO DAILY Hydrochlorothiazide Tablet (Hydrochlorothiazide) 12.5 Mg Tablet 12.5 Mg PO DAILY I have reviewed the current psychotropics carefully including drug interactions. Risk benefit ratio favors no change other than as noted in my dictated progress note. Diagnosis: Problems: (1) Medical clearance for psychiatric admission (2) Anxiety disorder (3) Dementia with behavioral disturbance (4) Dementia, vascular, with delusions (5) Dementia, vascular, with depression (6) Dementia in Alzheimer's disease with delusions (7) Dementia in Alzheimer's disease with depression (8) Impulse control disorder PAOLO THOMAS MD Feb 06, 2019 22:34
--- NOTE | 2019-02-06 23:57 | NUR ---
Behavior Intervention Response and Plan: BIRP Note: Behavior: Assumed Care of patient, patient located in Day Room at shift change. Patient exhibited the following behavior Interactive, Calm, Disorganized. Brief assessment on rounds of vital signs, medication needs, lab studies, and pain. Treatment plan problems 1. Intervention: Patient assessed and the following interventions initiated safety checks 15 Minute Checks Cognitive Assessment , Head to toe Assessment , Medications. Response: After interactions and interventions patient responded in the following manner, Restless , Interactive ,Calm. Continue to assess behaviors and condition will continue to monitor throughout the shift as needed. Patient educated on ADL's, and hand hygiene. Plan: Continue to monitor Master Treatment Plan for patient's progress toward short term goals of Decreased Agitation, Decreased Anxiety, long term care phlebotomist goals to return to previous living setting vs placement. Continue to assess patient for changes in above assessment. Monitor for medication needs, pain, and safety concerns. Hourly rounding performed to ensure safe environment.
[2019-02-07] MEDS: LEVOTHYROXINE 75 MCG TABLET PO SCH (05:38)
[2019-02-07 05:56] VITALS: BP 115/75
[2019-02-07] MEDS: clonazePAM 0.5 MG TABLET PO SCH ×3 (08:37→19:39)
[2019-02-07] MEDS: ALLOPURINOL 100 MG TABLET. PO SCH (08:37)
[2019-02-07] MEDS: LANSOPRAZOLE 30 MG TAB.RAP.DR PO SCH (08:37)
[2019-02-07] MEDS: MULTIVITAMIN I-VITE TABLET. PO SCH ×2 (08:37→19:38)
[2019-02-07] MEDS: CLOPIDOGREL BISULFATE 75 MG TABLET PO SCH (08:37)
[2019-02-07] MEDS: PARoxetine 20 MG TABLET PO SCH (08:37)
[2019-02-07] MEDS: ASPIRIN 81 MG TAB.CHEW PO SCH (08:37)
[2019-02-07] MEDS: ATENOLOL 50 MG TABLET PO SCH (08:38)
[2019-02-07] MEDS: LIDOCAINE (700MG/PATCH) PATCH. TD SCH (08:38)
[2019-02-07] MEDS: PILOCARPINE 1% OPHTH SOLUTION 15ML BOTTLE. OU SCH ×3 (08:39→19:40)
[2019-02-07] MEDS: DORZOLAMIDE 2% OPHTH SOLUTION 10ML BOTTLE. OU SCH ×2 (08:39→19:40)
[2019-02-07] MEDS: TIMOLOL 0.5% OPHTH SOLUTION 5ML BOTTLE. OD SCH ×2 (08:39→19:40)
[2019-02-07] MEDS: BRIMONIDINE 0.2% OPHTH SOLUTION 5ML BOTTLE. OU SCH ×2 (08:39→19:40)
[2019-02-07] MEDS: NYSTATIN TOPICAL POWDER 15GM BOTTLE. TP SCH ×2 (08:39→19:38)
--- NOTE | 2019-02-07 09:50 | NUR ---
Patient having a good morning med compliant whole patient ate good breakfast no behaviors and patient has been waiting to be instructed on which tasks to do next. Patient went back to bed after breakfast as he requested to lay down.
--- NOTE | 2019-02-07 10:58 | NUR ---
Behavior Intervention Response and Plan: BIRP Note: Behavior: Assumed Care of patient, patient located in Dining Room at shift change. Patient exhibited the following behavior Calm, Cooperative, Compliant. Brief assessment on rounds of vital signs, medication needs, lab studies, and pain. Treatment plan problems . Intervention: Patient assessed and the following interventions initiated safety checks 15 Minute Checks Cognitive Assessment , Head to toe Assessment , Personal Alarm in place. Response: After interactions and interventions patient responded in the following manner, Calm , Cooperative ,Compliant. Continue to assess behaviors and condition will continue to monitor throughout the shift as needed. Patient educated on ADL's, and hand hygiene. Plan: Continue to monitor Master Treatment Plan for patient's progress toward short term goals of Decreased Agitation, Medication Compliance, intermediate goals to return to previous living setting vs placement. Continue to assess patient for changes in above assessment. Monitor for medication needs, pain, and safety concerns. Hourly rounding performed to ensure safe environment.
[2019-02-07 15:34] VITALS: BP 116/62
[2019-02-07] MEDS: TAMSULOSIN 0.4 MG CAP.ER.24H. PO SCH (19:38)
[2019-02-07] MEDS: MIRTAZAPINE 15 MG TABLET PO SCH (19:38)
[2019-02-07] MEDS: ATORVASTATIN CALCIUM 20 MG TABLET PO SCH (19:38)
[2019-02-07] MEDS: PATCH REMOVAL. MC SCH (19:38)
[2019-02-07] MEDS: LATANOPROST 0.005% OPHTH SOLUTION 2.5ML BOTTLE. OU SCH (19:40)
--- NOTE | 2019-02-07 20:00 | NUR ---
Behavior Intervention Response and Plan: BIRP Note: Behavior: Assumed Care of patient, patient located in Day Room at shift change. Patient exhibited the following behavior Restless, Disorganized, Irritable. Brief assessment on rounds of vital signs, medication needs, lab studies, and pain. Treatment plan problems 1. Intervention: Patient assessed and the following interventions initiated safety checks 15 Minute Checks Cognitive Assessment , Head to toe Assessment , Medications. Response: After interactions and interventions patient responded in the following manner, Restless , Disorganized ,Agitated. Continue to assess behaviors and condition will continue to monitor throughout the shift as needed. Patient educated on ADL's, and hand hygiene. Plan: Continue to monitor Master Treatment Plan for patient's progress toward short term goals of Decreased Agitation, Decreased Anxiety, termination clerk goals to return to previous living setting vs placement. Continue to assess patient for changes in above assessment. Monitor for medication needs, pain, and safety concerns. Hourly rounding performed to ensure safe environment.
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
[2019-02-07] MEDS: traZODone 50 MG TABLET. PO PRN ×2 (21:34→23:32)
--- NOTE | 2019-02-08 00:13 | PN ---
DATE: 02/07/2019 SUBJECTIVE: The patient was seen today, met with the staff, chart reviewed. Staff reports some improvement in his behavior, less angry, not abusive towards the staff. No longer threatening staff. OBSERVATION: Temperature 97.3, blood pressure 115/75, pulse 80, respirations 16, and O2 sat 100%. Slept about 8 hours last night. The patient is compliant with the treatment. MEDICATIONS: His current medications include Paxil a total of 20 mg daily, lorazepam 0.5 mg daily, mirtazapine 15 mg at night, trazodone 50 mg at bedtime p.r.n., and Klonopin 0.125 mg t.i.d. The patient is not having any side effects. ASSESSMENT: Major neurocognitive disorder, Alzheimer's, vascular with delusions, depression and behavioral disturbances. DAMIAN CROWE MD DR: FLORIN/krzysztof JOB#: [id number] / [id number]
[2019-02-08] MEDS: LEVOTHYROXINE 75 MCG TABLET PO SCH (05:01)
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
[2019-02-08 06:18] VITALS: BP 144/78
[2019-02-08] MEDS: MULTIVITAMIN I-VITE TABLET. PO SCH ×3 (07:36→21:00)
[2019-02-08] MEDS: LANSOPRAZOLE 30 MG TAB.RAP.DR PO SCH (07:36)
[2019-02-08] MEDS: ASPIRIN 81 MG TAB.CHEW PO SCH (07:36)
[2019-02-08] MEDS: PARoxetine 20 MG TABLET PO SCH (07:36)
[2019-02-08] MEDS: CLOPIDOGREL BISULFATE 75 MG TABLET PO SCH (07:36)
[2019-02-08] MEDS: NYSTATIN TOPICAL POWDER 15GM BOTTLE. TP SCH ×2 (07:37→19:42)
[2019-02-08] MEDS: ALLOPURINOL 100 MG TABLET. PO SCH (07:37)
[2019-02-08] MEDS: clonazePAM 0.5 MG TABLET PO SCH ×3 (07:38→21:00)
[2019-02-08] MEDS: ATENOLOL 50 MG TABLET PO SCH (07:38)
[2019-02-08] MEDS: LIDOCAINE (700MG/PATCH) PATCH. TD SCH (07:38)
[2019-02-08] MEDS: TIMOLOL 0.5% OPHTH SOLUTION 5ML BOTTLE. OD SCH ×2 (07:39→21:00)
[2019-02-08] MEDS: DORZOLAMIDE 2% OPHTH SOLUTION 10ML BOTTLE. OU SCH ×2 (07:39→21:00)
[2019-02-08] MEDS: PILOCARPINE 1% OPHTH SOLUTION 15ML BOTTLE. OU SCH ×3 (07:39→21:00)
[2019-02-08] MEDS: BRIMONIDINE 0.2% OPHTH SOLUTION 5ML BOTTLE. OU SCH ×2 (07:39→21:00)
[2019-02-08] MEDS: PARoxetine 10 MG TABLET PO SCH (07:41)
--- NOTE | 2019-02-08 11:18 | NUR ---
Behavior Intervention Response and Plan: BIRP Note: Behavior: Assumed Care of patient, patient located in Quiet Room at shift change. Patient exhibited the following behavior Hallucinating, Combative, Non Compliant with Meds. Brief assessment on rounds of vital signs, medication needs, lab studies, and pain. Treatment plan problems . Intervention: Patient assessed and the following interventions initiated safety checks 15 Minute Checks Personal Alarm in place , Cognitive Assessment , Head to toe Assessment. Response: After interactions and interventions patient responded in the following manner, Restless , Combative ,Hallucinating. Continue to assess behaviors and condition will continue to monitor throughout the shift as needed. Patient educated on ADL's, and hand hygiene. Plan: Continue to monitor Master Treatment Plan for patient's progress toward short term goals of Decreased Agitation, Medication Compliance, buttermaker continuous churn goals to return to previous living setting vs placement. Continue to assess patient for changes in above assessment. Monitor for medication needs, pain, and safety concerns. Hourly rounding performed to ensure safe environment.
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
[2019-02-08 16:28] VITALS: BP 113/66
--- NOTE | 2019-02-08 17:42 | NUR ---
Patient daughter and son in law nathen and ulisses came to visit patient for lunch patient daughter and son in law asked for patient hearing aides and took them home to be cleaned and repaired. Patient ate lunch in the treatment conference room after they left patient became restless again doing a lot of wandering in his wheel chair attempting to get up from chair and walk continuous attempts to redirect patient to have him sit back in chair tried to get patient to go to bed in room several times but he continued to refuse. Patient son and daughter in law came to visit patient for dinner patient continued to show aggression toward staff called Dr Jacobs to discuss patient zydis prn order which Dr Jacobs stated ok to give up to an additional 10mg of zydis after the 20mg in 24 hour dose has been reached. Gave patient another zydis with the assistance of his son and helped patient to the restroom where he had a large bowel movement and patient had light pink smear on the toilet paper which resolved after the 2nd wipe. Patient was assisted to the dining room for dinner and his son started to help patient eat then left after seeing the patient was eating. Patient son and daughter in law want Dr Francois to look at patient legs due to they suspect cellulitis, Dr Francois will round on patient. Patient told one of the aides in the dining room during dinner that he is hurting on his tail bone advised Dr Francois regarding the pain which he will see patient once he is done eating and out of the dining room.
[2019-02-08] MEDS: ACETAMINOPHEN 325 MG TABLET PO PRN (18:32)
--- NOTE | 2019-02-08 18:36 | NUR ---
Patient was given prn tylenol for pain in the tail bone.
[2019-02-08] MEDS: ATORVASTATIN CALCIUM 20 MG TABLET PO SCH ×2 (19:42→21:00)
[2019-02-08] MEDS: MIRTAZAPINE 15 MG TABLET PO SCH ×2 (19:42→21:00)
[2019-02-08] MEDS: TAMSULOSIN 0.4 MG CAP.ER.24H. PO SCH ×2 (19:42→21:00)
[2019-02-08] MEDS: LATANOPROST 0.005% OPHTH SOLUTION 2.5ML BOTTLE. OU SCH (21:00)
[2019-02-08] MEDS: PATCH REMOVAL. MC SCH (21:00)
--- NOTE | 2019-02-08 23:30 | NUR ---
Nursing Note Pt is sleeping, snoring loudly.
--- NOTE | 2019-02-09 02:29 | PN ---
DATE: 02/08/2019 SUBJECTIVE: The patient was seen today, met with the staff, chart reviewed. Staff reports no major problems, less angry, not exhibiting any abusive behaviors. Overall, his behavior has improved. OBSERVATION: Vital signs are stable. The patient is sleeping better. Appetite improved. The patient is compliant with the treatment. MEDICATIONS: The patient's current medications including Paxil 20 mg daily, lorazepam 0.5 mg daily, mirtazapine 15 mg at night, trazodone 50 mg at bedtime p.r.n., and Klonopin 125 mcg t.i.d. The patient denies of any side effects, no major medical issues. ASSESSMENT: Major neurocognitive disorder, Alzheimer, vascular with delusion, depression, and behavioral disturbances. PLAN: To continue with the treatment. DAMIAN CROWE MD DR: FLORIN/krzysztof JOB#: [id number] / [id number]
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
[2019-02-09] MEDS: LEVOTHYROXINE 75 MCG TABLET PO SCH (05:39)
[2019-02-09 06:09] VITALS: BP 143/71
[2019-02-09 07:29] LABS: HEMATOCRIT 37.7 % (39.0-53.0); HEMOGLOBIN 12.3 g/dL (13.0-17.5); RED BLOOD COUNT 3.72 x10^6/uL (4.30-5.70); RED CELL DISTRIBUTION WIDTH 17.1 % (11.5-14.5); WHITE BLOOD COUNT 9.1 x10^3/uL (4.0-11.0)
[2019-02-09 08:09] LABS: ALBUMIN 2.6 g/dL (3.4-5.0); ALBUMIN/GLOBULIN RATIO 0.8 (1.0-1.7); CALCIUM 8.7 mg/dL (8.5-10.1); CREATININE 1.6 mg/dL (0.7-1.3); GFR 40.9; POTASSIUM 4.1 mmol/L (3.5-5.1); TOTAL BILIRUBIN 0.6 mg/dL (0.2-1.0); TOTAL PROTEIN 5.9 g/dL (6.4-8.2)
[2019-02-09] MEDS: PILOCARPINE 1% OPHTH SOLUTION 15ML BOTTLE. OU SCH ×3 (09:00→21:00)
[2019-02-09] MEDS: BRIMONIDINE 0.2% OPHTH SOLUTION 5ML BOTTLE. OU SCH ×2 (09:00→21:00)
[2019-02-09] MEDS: TIMOLOL 0.5% OPHTH SOLUTION 5ML BOTTLE. OD SCH ×2 (09:00→20:59)
[2019-02-09] MEDS: DORZOLAMIDE 2% OPHTH SOLUTION 10ML BOTTLE. OU SCH ×2 (09:00→21:00)
[2019-02-09] MEDS: NYSTATIN TOPICAL POWDER 15GM BOTTLE. TP SCH ×2 (09:00→19:55)
[2019-02-09] MEDS: PARoxetine 10 MG TABLET PO SCH (09:04)
[2019-02-09] MEDS: LANSOPRAZOLE 30 MG TAB.RAP.DR PO SCH (09:04)
[2019-02-09] MEDS: ALLOPURINOL 100 MG TABLET. PO SCH (09:05)
[2019-02-09] MEDS: CLOPIDOGREL BISULFATE 75 MG TABLET PO SCH (09:05)
[2019-02-09] MEDS: MULTIVITAMIN I-VITE TABLET. PO SCH ×2 (09:05→19:54)
[2019-02-09] MEDS: clonazePAM 0.5 MG TABLET PO SCH ×3 (09:05→19:57)
[2019-02-09] MEDS: ASPIRIN 81 MG TAB.CHEW PO SCH (09:05)
[2019-02-09] MEDS: ATENOLOL 50 MG TABLET PO SCH (09:05)
[2019-02-09] MEDS: LIDOCAINE (700MG/PATCH) PATCH. TD SCH (09:06)
--- NOTE | 2019-02-09 10:29 | NUR ---
Behavior Intervention Response and Plan: BIRP Note: Behavior: Assumed Care of patient, patient located in Dining Room at shift change. Patient exhibited the following behavior Calm, Cooperative, Compliant. Brief assessment on rounds of vital signs, medication needs, lab studies, and pain. Treatment plan problems . Intervention: Patient assessed and the following interventions initiated safety checks 15 Minute Checks Personal Alarm in place , Cognitive Assessment , Head to toe Assessment. Response: After interactions and interventions patient responded in the following manner, Calm , Compliant ,Compliant. Continue to assess behaviors and condition will continue to monitor throughout the shift as needed. Patient educated on ADL's, and hand hygiene. 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 Continue to assess patient for changes in above assessment. Monitor for medication needs, pain, and safety concerns. Hourly rounding performed to ensure safe environment.
--- NOTE | 2019-02-09 11:02 | NUR ---
Patient became agitated in the day room due to started hallucinating thinking he needed to wait on the vp & general counsel, patient was removed from the day room and put in the quiet room and given a zydis via syringe. As of right now he is starting to calm down.
--- NOTE | 2019-02-09 15:12 | NUR ---
Re, nurse demand planning analyst from [facility], came and evaluated Kevan this afternoon. Re will take information back to her team and review. Awaiting admission decision.
[2019-02-09 16:28] VITALS: BP 122/74
--- NOTE | 2019-02-09 16:59 | RAD ---
Radionuclide bone scan, 02/09/2019: HISTORY: Foot pain, low back pain Whole-body imaging was performed following IV injection of 25 mCi of technetium 99m MDP. No previous bone scan is available at this time for comparison purposes. The following findings are delineated: 1. There is increased activity in the lower lumbar spine at the L5 level. The appearance raises the possibility of a recent fracture. Radiographic correlation is suggested. 2. There is mildly increased activity at several levels in the lower cervical, thoracic and upper lumbar spine, most likely arthritic in nature. Again, radiographic correlation is suggested. 3. Increased activity along the anterior end of a midthoracic rib on the right which is likely on a traumatic basis. 4. Increased activity at both sternoclavicular articulations and both knees is probably arthritic in nature. 5. There is moderately increased activity involving numerous toes bilaterally. This is a nonspecific appearance which could be due to trauma, arthritis or infection. Radiographic correlation is suggested. Electronically signed by: Jayy Lawler MD (02/09/2019 4:56 PM) [facility]
--- NOTE | 2019-02-09 17:29 | NUR ---
Wound care consult for multiple wounds. Pt has multiple traumatic wounds to bilateral feet/toes from kicking doors, etc. Cleansed all wounds, applied Aquacel Ag and Telfa pads to all open wounds. Coccyx was reddened from IAD, cleansed area and applied Calazime cream, recommend to reapply BID and PRN. Skin tears to RFA are resolved. No other wounds noted on full skin inspection. Discussed POC Sue HINTON, instruction sheet left. If bandages don't stay on, ABD and Kerlix may be applied to pad toes and contain drainage. WC will continue to follow for possible changes.
--- NOTE | 2019-02-09 18:54 | NUR ---
Patient a little more calm after came back from bone scan he slept in his bed until it was time for dinner, patient ate in the dining room very well with no behaviors sat back in day room with others. Patient bone scan came back discussed results with Dr Francois who ordered x-ray of the sacrum and lumbar spine and both feet, orders put in.
[2019-02-09] MEDS: ATORVASTATIN CALCIUM 20 MG TABLET PO SCH (19:53)
[2019-02-09] MEDS: TAMSULOSIN 0.4 MG CAP.ER.24H. PO SCH (19:54)
[2019-02-09] MEDS: MIRTAZAPINE 15 MG TABLET PO SCH (19:54)
[2019-02-09] MEDS: PATCH REMOVAL. MC SCH (19:59)
--- NOTE | 2019-02-09 20:00 | NUR ---
Patient in day room hitting and kicking staff. Administered PRN zyprexa sublingually per order for agitation/aggression.
[2019-02-09] MEDS: traZODone 50 MG TABLET. PO PRN ×2 (20:04→22:16)
[2019-02-09] MEDS: LATANOPROST 0.005% OPHTH SOLUTION 2.5ML BOTTLE. OU SCH (21:00)
--- NOTE | 2019-02-09 22:17 | NUR ---
Patient is exit seeking, asking for his car keys and yelling and becoming very agitated because we won't let him go wake up his . He is delusional and thinks a female peer is his . Patient is not redirectable and becoming increasingly agitated. We have walked patient in hallway but he continues to ask for the truck keys. PRN zyprexa given for agitation/psychosis and PRN trazodone repeat dose given for insomnia. He is yelling for a pencil, paper and telephone to call his . He thinks his children are young and home alone, even though he can state his age as 88. Addendum: 02/10/19 at 0136 by CELINE BLAKE RN Patient was able to calm down and lay down. He went to sleep. Will continue to monitor.
--- NOTE | 2019-02-10 03:36 | PN ---
DATE: 02/09/2019 SUBJECTIVE: The patient was seen today, met with the staff, chart reviewed. Staff reports some improvement, sleeping well, still delusional and paranoid. The patient is also exhibiting disorganized thinking, significant cognitive deficits. OBSERVATION: VITAL SIGNS: Temperature 98.2, blood pressure 143/71, pulse 84, respirations 20, O2 sat 94%. Slept about 10 hours last night. MEDICATIONS: Reviewed. Currently on Paxil 20 mg daily and supposed to be tapered down to 10 mg every 3 days and discontinue completely, lorazepam 0.5 mg daily, mirtazapine 15 mg at night, trazodone 50 mg at bedtime p.r.n., Klonopin 0.125 mg t.i.d. The patient denies of any side effects, no major medical issues. ASSESSMENT: Major neurocognitive disorder, Alzheimer's, vascular with delusions, depression and behavioral disturbances. PLAN: To continue with the treatment. The patient has planned to return to [facility] once stable. DAMIAN CROWE MD DR: FLORIN/krzysztof JOB#: [id number] / [id number]
[2019-02-10] MEDS: LEVOTHYROXINE 75 MCG TABLET PO SCH (05:26)
[2019-02-10 06:34] VITALS: BP 114/70
--- NOTE | 2019-02-10 07:43 | RAD ---
Lumbar spine, 2 views, 02/09/2019: HISTORY: Back pain There is a mild left convexity lumbar scoliosis. There is moderate disc space narrowing and marginal spurring at L4-5 and L5-S1 with vacuum disc phenomena. There is a lesser degree of degenerative disc disease in the upper lumbar spine. There is moderate facet joint arthropathy bilaterally in the lower lumbar spine. No acute fracture or subluxation is evident. Extensive aortoiliac calcific plaquing is present. IMPRESSION: 1. Moderate to severe multilevel degenerative change as described above. The bone scan findings in the lower lumbar spine are most likely on an arthritic basis. 2. Mild lumbar scoliosis. 3. No acute bony abnormality is detected. Sacrococcygeal spine, 3 views, 02/09/2019: No fracture or destructive bony lesion is seen. The presacral soft tissues are unremarkable. IMPRESSION: No acute abnormality is detected. Electronically signed by: Jayy Lawler MD (02/10/2019 7:40 AM) [facility]
--- NOTE | 2019-02-10 07:46 | RAD ---
Bilateral feet, 4 views, 02/09/2019: HISTORY: Pain Artifacts related to socks degrade image quality. There are degenerative changes at the first MTP joints, worse on the right. There are degenerative changes at scattered interphalangeal joints. Deformity of the distal aspect of the proximal phalanx of the left little toe is compatible with an incompletely healed fracture. No additional fracture or destructive bony lesion is seen. Arterial calcifications are present. IMPRESSION: 1. Scattered degenerative changes as described above. 2. Partially healed fracture of the proximal phalanx of the left little toe. Electronically signed by: Jayy Lawler MD (02/10/2019 7:43 AM) [facility]
[2019-02-10] MEDS: DORZOLAMIDE 2% OPHTH SOLUTION 10ML BOTTLE. OU SCH ×2 (09:00→20:35)
[2019-02-10] MEDS: PILOCARPINE 1% OPHTH SOLUTION 15ML BOTTLE. OU SCH ×3 (09:00→20:35)
[2019-02-10] MEDS: BRIMONIDINE 0.2% OPHTH SOLUTION 5ML BOTTLE. OU SCH ×2 (09:00→20:35)
[2019-02-10] MEDS: ATENOLOL 50 MG TABLET PO SCH (09:00)
[2019-02-10] MEDS: TIMOLOL 0.5% OPHTH SOLUTION 5ML BOTTLE. OD SCH ×2 (09:00→20:35)
--- NOTE | 2019-02-10 11:25 | NUR ---
Behavior Intervention Response and Plan: BIRP Note: Behavior: Assumed Care of patient, patient located in Patient Room at shift change. Patient exhibited the following behavior Drowsy, Sleeping, Calm. Brief assessment on rounds of vital signs, medication needs, lab studies, and pain. Treatment plan problems . Intervention: Patient assessed and the following interventions initiated safety checks 15 Minute Checks Personal Alarm in place , Cognitive Assessment , Head to toe Assessment. Response: After interactions and interventions patient responded in the following manner, Calm , Sleeping ,Drowsy. Continue to assess behaviors and condition will continue to monitor throughout the shift as needed. Patient educated on ADL's, and hand hygiene. 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 Continue to assess patient for changes in above assessment. Monitor for medication needs, pain, and safety concerns. Hourly rounding performed to ensure safe environment.
--- NOTE | 2019-02-10 12:01 | NUR ---
Patient still sleeping he did not sleep too well last night and had agitation and behaviors last night, at the moment he is sleeping in stable condition he only had 4 hours of sleep last night.
[2019-02-10] MEDS: NYSTATIN TOPICAL POWDER 15GM BOTTLE. TP SCH ×2 (12:22→20:17)
[2019-02-10] MEDS: ACETAMINOPHEN 325 MG TABLET PO PRN (12:22)
[2019-02-10] MEDS: MULTIVITAMIN I-VITE TABLET. PO SCH ×2 (12:23→20:17)
[2019-02-10] MEDS: ALLOPURINOL 100 MG TABLET. PO SCH (12:23)
[2019-02-10] MEDS: LANSOPRAZOLE 30 MG TAB.RAP.DR PO SCH (12:23)
[2019-02-10] MEDS: ASPIRIN 81 MG TAB.CHEW PO SCH (12:23)
[2019-02-10] MEDS: PARoxetine 10 MG TABLET PO SCH (12:23)
[2019-02-10] MEDS: CLOPIDOGREL BISULFATE 75 MG TABLET PO SCH (12:23)
[2019-02-10] MEDS: clonazePAM 0.5 MG TABLET PO SCH ×3 (12:24→20:19)
[2019-02-10] MEDS: LIDOCAINE (700MG/PATCH) PATCH. TD SCH (12:25)
--- NOTE | 2019-02-10 13:30 | NUR ---
Pt son Chino came to visit for lunch requested we get patient up and to the dining room table for lunch. Patient ate lunch well and gave all am meds without difficulty. Patient does have a moist cough during lunch he coughed after drinking and took several times coughing to clear mucous from throat. Will put patient on list to see Dr Francois patient son stated he does have a hx of sinus infection as well as pna and in his paper work hx shows influenza b. Patient lungs were diminished and clear did not hear any crackles once patient clears throat through coughing the gurgling sound in his throat goes away. Patient back in bed at the moment no behaviors to report will continue to monitor patient.
--- NOTE | 2019-02-10 13:35 | NUR ---
I did not administer clonazepam 1400 due to patient am dose was administered at lunch.
[2019-02-10 16:25] VITALS: BP 133/54
[2019-02-10] MEDS: PATCH REMOVAL. MC SCH (20:16)
[2019-02-10] MEDS: TAMSULOSIN 0.4 MG CAP.ER.24H. PO SCH (20:16)
[2019-02-10] MEDS: MIRTAZAPINE 15 MG TABLET PO SCH (20:17)
[2019-02-10] MEDS: ATORVASTATIN CALCIUM 20 MG TABLET PO SCH (20:17)
[2019-02-10] MEDS: traZODone 50 MG TABLET. PO PRN (20:27)
[2019-02-10] MEDS: LATANOPROST 0.005% OPHTH SOLUTION 2.5ML BOTTLE. OU SCH (20:35)
--- NOTE | 2019-02-10 21:10 | NUR ---
Nursing note: Assumed care of pt in the day room. He was compliant and withdrawn. No c/o or s/s of pain. No agitation noted.
--- NOTE | 2019-02-11 02:45 | PN ---
DATE: 02/10/2019 SUBJECTIVE: The patient was seen today, met with the staff, chart reviewed. The patient is sleeping well, appetite improved. The patient is still delusional, paranoid, also having problems with his concentration and thinking and significant cognitive deficits. OBSERVATION: VITAL SIGNS: Temperature 97.1, blood pressure 133/54, pulse 65, respirations 17, O2 sat 95%. MEDICATIONS: The patient's current medications include Paxil, he is on a gradual dose reduction and eventual discontinuation, also on lorazepam 0.5 mg daily, mirtazapine 15 mg at night, trazodone 50 mg at bedtime and Klonopin 0.125 mg t.i.d. The patient is not exhibiting any side effects. ASSESSMENT: Major neurocognitive disorder, Alzheimer's, vascular with delusions, depression and behavioral disturbances. PLAN: Continue with the treatment. The patient has planned to return to [facility] when he is stabilized. DAMIAN CROWE MD DR: FLORIN/krzysztof JOB#: [id number] / [id number]
[2019-02-11 06:10] VITALS: BP 135/63
[2019-02-11] MEDS: LEVOTHYROXINE 75 MCG TABLET PO SCH (06:15)
[2019-02-11] MEDS: LANSOPRAZOLE 30 MG TAB.RAP.DR PO SCH (07:30)
[2019-02-11] MEDS: ATENOLOL 50 MG TABLET PO SCH (09:00)
[2019-02-11] MEDS: ALLOPURINOL 100 MG TABLET. PO SCH (10:41)
[2019-02-11] MEDS: ASPIRIN 81 MG TAB.CHEW PO SCH (10:41)
[2019-02-11] MEDS: CLOPIDOGREL BISULFATE 75 MG TABLET PO SCH (10:42)
[2019-02-11] MEDS: MULTIVITAMIN I-VITE TABLET. PO SCH ×2 (10:42→20:09)
[2019-02-11] MEDS: PARoxetine 10 MG TABLET PO SCH (10:42)
[2019-02-11] MEDS: LIDOCAINE (700MG/PATCH) PATCH. TD SCH (10:43)
[2019-02-11] MEDS: NYSTATIN TOPICAL POWDER 15GM BOTTLE. TP SCH ×2 (10:44→20:09)
[2019-02-11] MEDS: clonazePAM 0.5 MG TABLET PO SCH ×3 (10:44→20:11)
[2019-02-11] MEDS: ACETAMINOPHEN 325 MG TABLET PO PRN (10:45)
[2019-02-11] MEDS: TIMOLOL 0.5% OPHTH SOLUTION 5ML BOTTLE. OD SCH ×2 (10:45→20:12)
[2019-02-11] MEDS: BRIMONIDINE 0.2% OPHTH SOLUTION 5ML BOTTLE. OU SCH ×2 (10:46→20:12)
[2019-02-11] MEDS: PILOCARPINE 1% OPHTH SOLUTION 15ML BOTTLE. OU SCH ×3 (10:46→20:11)
[2019-02-11] MEDS: DORZOLAMIDE 2% OPHTH SOLUTION 10ML BOTTLE. OU SCH ×2 (10:46→20:12)
--- NOTE | 2019-02-11 13:30 | NUR ---
Reviewed with Chino, son/WESLEY. Kevan continues to have periods of agitation and aggression directed towards staff. Discharge likely to be postponed until next week due to this. Explained to Chino that goal is to have patient without behaviors for 48-72 hours prior to discharge. Chino agreed with postponing discharge.
--- NOTE | 2019-02-11 14:02 | NUR ---
Closed blister on left heel, picture in chart, placed a bordered foam dressing over it.
--- NOTE | 2019-02-11 14:03 | NUR ---
Behavior Intervention Response and Plan: BIRP Note: Behavior: Assumed Care of patient, patient located in Dining Room at shift change. Patient exhibited the following behavior Calm, Cooperative, Compliant. Brief assessment on rounds of vital signs, medication needs, lab studies, and pain. Treatment plan problems . Intervention: Patient assessed and the following interventions initiated safety checks 15 Minute Checks Personal Alarm in place , Cognitive Assessment , Head to toe Assessment. Response: After interactions and interventions patient responded in the following manner, Calm , Cooperative ,Compliant. Continue to assess behaviors and condition will continue to monitor throughout the shift as needed. Patient educated on ADL's, and hand hygiene. 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 Continue to assess patient for changes in above assessment. Monitor for medication needs, pain, and safety concerns. Hourly rounding performed to ensure safe environment.
--- NOTE | 2019-02-11 14:12 | NUR ---
Patient worked with physical therapy right after lunch then went to sleep, non-administered clonazepam and eye drops for 1400 due to patient in bed sleeping.
[2019-02-11 17:30] VITALS: BP 122/67
[2019-02-11] MEDS: PATCH REMOVAL. MC SCH (20:09)
[2019-02-11] MEDS: MIRTAZAPINE 15 MG TABLET PO SCH (20:09)
[2019-02-11] MEDS: ATORVASTATIN CALCIUM 20 MG TABLET PO SCH (20:09)
[2019-02-11] MEDS: TAMSULOSIN 0.4 MG CAP.ER.24H. PO SCH (20:09)
[2019-02-11] MEDS: LATANOPROST 0.005% OPHTH SOLUTION 2.5ML BOTTLE. OU SCH (20:12)
--- NOTE | 2019-02-11 22:57 | NUR ---
Nursing note: Assumed care of pt in his room. He was sleeping but easily awakened. He was very confused and disorganized. He didn't know where he was. He was compliant w/meds whole. No s/s or c/o pain.
[2019-02-12] MEDS: LEVOTHYROXINE 75 MCG TABLET PO SCH (05:43)
--- NOTE | 2019-02-12 06:40 | RAD ---
Indication:Wet cough TECHNIQUE:Portable AP chest X-ray COMPARISON:None FINDINGS: Heart is normal in size. Lungs are hyperinflated with prominent bronchial markings. No focal consolidation. No pneumothorax or pleural effusion. Visualized bony thorax within normal limits. IMPRESSION: Findings of COPD with superimposed atypical/viral infection. Electronically signed by: Nico Tidwell DO (02/12/2019 6:38 AM) [facility]
[2019-02-12] MEDS: ALLOPURINOL 100 MG TABLET. PO SCH (07:45)
[2019-02-12] MEDS: CLOPIDOGREL BISULFATE 75 MG TABLET PO SCH (07:45)
[2019-02-12 07:47] LABS: BASO % 1 % (0-3); EOS # 0.6 x10^3/uL (0.0-0.7); EOS % 7 % (0-3); HEMATOCRIT 35.1 % (39.0-53.0); HEMOGLOBIN 11.4 g/dL (13.0-17.5); LYMPH # 1.6 x10^3/uL (1.0-4.8); LYMPH % 21 % (24-48); MEAN CORPUSCULAR HEMOGLOBIN 33 pg (25-35); MEAN CORPUSCULAR HGB CONC 32 g/dL (31-37); MEAN CORPUSCULAR VOLUME 103 fL (79-100); MONO # 0.8 x10^3/uL (0.0-1.1); MONO % 11 % (0-9); NEUT # 4.7 x10^3uL (1.8-7.7); NEUT % 60 % (31-73); PLATELET COUNT 123 x10^3/uL (140-400); RED BLOOD COUNT 3.42 x10^6/uL (4.30-5.70); RED CELL DISTRIBUTION WIDTH 17.3 % (11.5-14.5); WHITE BLOOD COUNT 7.7 x10^3/uL (4.0-11.0)
[2019-02-12] MEDS: LIDOCAINE (700MG/PATCH) PATCH. TD SCH (07:49)
[2019-02-12] MEDS: ASPIRIN 81 MG TAB.CHEW PO SCH (07:49)
[2019-02-12] MEDS: PARoxetine 10 MG TABLET PO SCH (07:49)
[2019-02-12] MEDS: MULTIVITAMIN I-VITE TABLET. PO SCH ×2 (07:49→19:45)
[2019-02-12] MEDS: LANSOPRAZOLE 30 MG TAB.RAP.DR PO SCH (07:56)
[2019-02-12] MEDS: NYSTATIN TOPICAL POWDER 15GM BOTTLE. TP SCH ×2 (07:56→19:47)
[2019-02-12] MEDS: clonazePAM 0.5 MG TABLET PO SCH ×3 (07:57→19:49)
[2019-02-12] MEDS: ATENOLOL 50 MG TABLET PO SCH (07:58)
[2019-02-12 08:01] LABS: ALBUMIN 2.4 g/dL (3.4-5.0); ALBUMIN/GLOBULIN RATIO 0.8 (1.0-1.7); CALCIUM 8.3 mg/dL (8.5-10.1); CREATININE 1.3 mg/dL (0.7-1.3); POTASSIUM 3.7 mmol/L (3.5-5.1); TOTAL BILIRUBIN 0.4 mg/dL (0.2-1.0); TOTAL PROTEIN 5.4 g/dL (6.4-8.2)
[2019-02-12] MEDS: DORZOLAMIDE 2% OPHTH SOLUTION 10ML BOTTLE. OU SCH ×2 (08:02→19:46)
[2019-02-12] MEDS: TIMOLOL 0.5% OPHTH SOLUTION 5ML BOTTLE. OD SCH ×2 (08:03→19:46)
[2019-02-12] MEDS: BRIMONIDINE 0.2% OPHTH SOLUTION 5ML BOTTLE. OU SCH ×2 (08:03→19:46)
[2019-02-12] MEDS: PILOCARPINE 1% OPHTH SOLUTION 15ML BOTTLE. OU SCH ×3 (08:03→19:46)
--- NOTE | 2019-02-12 09:00 | NUR ---
WEEKLY ACTIVITY THERAPY NOTE Date of Admission: 01/27/2019 Date of AT Assessment: 01/30/2019 Goal aimed: To increase time management and recreation education. Initial goal: Pt. will participate in at least three (Activity Therapy) groups or individual activities per week. Weekly progress towards goal: did not achieve Group participation level: zero Behaviors observed: sleeping often, unable to engage, no interest, not around group often Plan: no change to goal
[2019-02-12 10:36] VITALS: BP 145/74
--- NOTE | 2019-02-12 14:24 | NUR ---
Behavior Intervention Response and Plan: BIRP Note: Behavior: Assumed Care of patient, patient located in Dining Room at shift change. Patient exhibited the following behavior Calm, Interactive, Compliant. Brief assessment on rounds of vital signs, medication needs, lab studies, and pain. Treatment plan problems . Intervention: Patient assessed and the following interventions initiated safety checks 15 Minute Checks Personal Alarm in place , Cognitive Assessment , Head to toe Assessment. Response: After interactions and interventions patient responded in the following manner, Calm , Cooperative , Sleeping. Continue to assess behaviors and condition will continue to monitor throughout the shift as needed. Patient educated on ADL's, and hand hygiene. Plan: Continue to monitor Master Treatment Plan for patient's progress toward short term goals of Decreased Agitation, Medication Compliance, senior care goals to return to previous living setting vs placement. Continue to assess patient for changes in above assessment. Monitor for medication needs, pain, and safety concerns. Hourly rounding performed to ensure safe environment.
[2019-02-12 16:32] VITALS: BP 133/73
[2019-02-12] MEDS: TAMSULOSIN 0.4 MG CAP.ER.24H. PO SCH (19:45)
[2019-02-12] MEDS: ATORVASTATIN CALCIUM 20 MG TABLET PO SCH (19:45)
[2019-02-12] MEDS: MIRTAZAPINE 15 MG TABLET PO SCH (19:45)
[2019-02-12] MEDS: PATCH REMOVAL. MC SCH (19:45)
[2019-02-12] MEDS: LATANOPROST 0.005% OPHTH SOLUTION 2.5ML BOTTLE. OU SCH (19:47)
--- NOTE | 2019-02-12 23:17 | NUR ---
Pt laying in bed with eyes closed at shift change. Pt calm, pleasantly confused, and cooperative. Pt compliant with assessment and compliant with medications administered whole.
--- NOTE | 2019-02-12 23:55 | PN ---
DATE: 02/12/2019 SUBJECTIVE: The patient was seen today, met with the staff, chart reviewed and also met with his family member. The patient apparently making progress, alert, pleasant. Staff reports no major behavior problems. OBJECTIVE: VITAL SIGNS: Temperature 98, blood pressure 133/73, pulse 72, respirations 19, O2 sat 97%. The patient's sleep and appetite have improved. MEDICATIONS: The patient's current medications include lorazepam 0.5 mg daily, mirtazapine 15 mg at night, trazodone 50 mg at bedtime, Klonopin 0.125 mg t.i.d. The patient is not exhibiting any side effects. ASSESSMENT: Major neurocognitive disorder, Alzheimer, vascular with delusions, depression, and behavioral disturbances. PLAN: To continue with the treatment. DAMIAN CROWE MD DR: FLORIN/krzysztof JOB#: [id number] / [id number]
[2019-02-13] MEDS: LEVOTHYROXINE 75 MCG TABLET PO SCH (05:19)
--- NOTE | 2019-02-13 05:20 | NUR ---
Pt agitated and combative with staff during morning cares. Pt attempting to strike staff and refusing to get out of bed until he gets some candy. Pt delusional- states he is "not going to school today" because his "dad told me not to". PRN Valentina administered as ordered crushed and hidden in pudding.
[2019-02-13 06:07] VITALS: BP 132/60
[2019-02-13] MEDS: PILOCARPINE 1% OPHTH SOLUTION 15ML BOTTLE. OU SCH ×3 (09:00→19:32)
[2019-02-13] MEDS: DORZOLAMIDE 2% OPHTH SOLUTION 10ML BOTTLE. OU SCH ×2 (09:00→19:32)
[2019-02-13] MEDS: NYSTATIN TOPICAL POWDER 15GM BOTTLE. TP SCH ×2 (09:00→19:31)
[2019-02-13] MEDS: TIMOLOL 0.5% OPHTH SOLUTION 5ML BOTTLE. OD SCH ×2 (09:00→19:32)
[2019-02-13] MEDS: BRIMONIDINE 0.2% OPHTH SOLUTION 5ML BOTTLE. OU SCH ×2 (09:00→19:32)
[2019-02-13] MEDS: ACETAMINOPHEN 325 MG TABLET PO PRN (09:05)
[2019-02-13] MEDS: LANSOPRAZOLE 30 MG TAB.RAP.DR PO SCH (09:05)
[2019-02-13] MEDS: LIDOCAINE (700MG/PATCH) PATCH. TD SCH (09:05)
[2019-02-13] MEDS: CLOPIDOGREL BISULFATE 75 MG TABLET PO SCH (09:06)
[2019-02-13] MEDS: MULTIVITAMIN I-VITE TABLET. PO SCH ×2 (09:06→19:29)
[2019-02-13] MEDS: ATENOLOL 50 MG TABLET PO SCH (09:09)
[2019-02-13] MEDS: PARoxetine 10 MG TABLET PO SCH (09:10)
[2019-02-13] MEDS: clonazePAM 0.5 MG TABLET PO SCH ×3 (09:10→19:31)
[2019-02-13] MEDS: ALLOPURINOL 100 MG TABLET. PO SCH (09:10)
[2019-02-13] MEDS: ASPIRIN 81 MG TAB.CHEW PO SCH (09:10)
--- NOTE | 2019-02-13 11:43 | NUR ---
Behavior Intervention Response and Plan: BIRP Note: Behavior: Assumed Care of patient, patient located in Dining Room at shift change. Patient exhibited the following behavior Calm, Cooperative, Drowsy. Brief assessment on rounds of vital signs, medication needs, lab studies, and pain. Treatment plan problems . Intervention: Patient assessed and the following interventions initiated safety checks 15 Minute Checks Personal Alarm in place , Cognitive Assessment , Head to toe Assessment. Response: After interactions and interventions patient responded in the following manner, Calm , Cooperative ,Compliant. Continue to assess behaviors and condition will continue to monitor throughout the shift as needed. Patient educated on ADL's, and hand hygiene. 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 Continue to assess patient for changes in above assessment. Monitor for medication needs, pain, and safety concerns. Hourly rounding performed to ensure safe environment.
[2019-02-13 16:18] VITALS: BP 152/75
[2019-02-13] MEDS: TAMSULOSIN 0.4 MG CAP.ER.24H. PO SCH (19:29)
[2019-02-13] MEDS: ATORVASTATIN CALCIUM 20 MG TABLET PO SCH (19:29)
[2019-02-13] MEDS: MIRTAZAPINE 15 MG TABLET PO SCH (19:29)
[2019-02-13] MEDS: PATCH REMOVAL. MC SCH (19:29)
[2019-02-13] MEDS: LATANOPROST 0.005% OPHTH SOLUTION 2.5ML BOTTLE. OU SCH (19:32)
--- NOTE | 2019-02-13 21:20 | NUR ---
Pt laying in bed with eyes closed at shift change. Pt calm, pleasantly confused, and disorganized. Pt cooperative with assessment and compliant with medications administered whole.
[2019-02-13] MEDS: traZODone 50 MG TABLET. PO PRN (22:33)
--- NOTE | 2019-02-13 22:40 | NUR ---
Pt restless, disorganized, attempting to get up without assist. Pt then becomes agitated and yelling when staff attempts to re-direct. PRN Trazodone and zyprexa administered as ordered. Pt then escorted to day room where he was attempting to lay down on floor. Staff assisted pt into quiet room to lay down.
--- NOTE | 2019-02-13 23:19 | PN ---
DATE: 02/13/2019 SUBJECTIVE: The patient was seen today, met with the staff, chart reviewed and also met with his family member. The patient apparently making progress, alert, pleasant. Staff reports no major behavior problems. OBJECTIVE: VITAL SIGNS: Temperature 97.7, blood pressure 132/60, pulse 76, respirations 20, O2 sat 97%. Slept about 9 hours last night. The patient is not presenting with any major medical issues at this time. CURRENT MEDICATIONS: Include Lorazepam 0.5 mg daily, mirtazapine 15 mg at night, trazodone 50 mg at bedtime, Klonopin 0.125 mg t.i.d. The patient is not having any side effects. ASSESSMENT: Major neurocognitive disorder, Alzheimer's, vascular with delusions, depression, and behavioral disturbances. PLAN: To continue with the treatment. DAMIAN CROWE MD DR: FLORIN/krzysztof JOB#: [id number] / [id number]
[2019-02-14] MEDS: traZODone 50 MG TABLET. PO PRN (00:56)
--- NOTE | 2019-02-14 01:08 | NUR ---
Pt scooting around quiet room and [address] on his behind. Pt is yelling, calling out for "May" and stating "open the damn door" and "May, let me in". Pt agitated and attempting to strike staff. This nurse attempted to administer PRN medications crushed in pudding when pt grabbed spoon and threw it. PRN repeat Trazodone and Zyprexa then administered via oral syringe.
[2019-02-14 05:59] VITALS: BP 164/78
[2019-02-14] MEDS: LEVOTHYROXINE 75 MCG TABLET PO SCH (06:01)
[2019-02-14] MEDS: MULTIVITAMIN I-VITE TABLET. PO SCH ×2 (08:56→19:24)
[2019-02-14] MEDS: LANSOPRAZOLE 30 MG TAB.RAP.DR PO SCH (08:56)
[2019-02-14] MEDS: ASPIRIN 81 MG TAB.CHEW PO SCH (08:56)
[2019-02-14] MEDS: LIDOCAINE (700MG/PATCH) PATCH. TD SCH ×2 (08:56→09:00)
[2019-02-14] MEDS: ALLOPURINOL 100 MG TABLET. PO SCH (08:56)
[2019-02-14] MEDS: ATENOLOL 50 MG TABLET PO SCH (08:57)
[2019-02-14] MEDS: NYSTATIN TOPICAL POWDER 15GM BOTTLE. TP SCH ×2 (09:02→19:25)
[2019-02-14] MEDS: CLOPIDOGREL BISULFATE 75 MG TABLET PO SCH (09:05)
[2019-02-14] MEDS: clonazePAM 0.5 MG TABLET PO SCH ×3 (09:10→19:28)
[2019-02-14] MEDS: BRIMONIDINE 0.2% OPHTH SOLUTION 5ML BOTTLE. OU SCH ×2 (09:11→19:46)
[2019-02-14] MEDS: DORZOLAMIDE 2% OPHTH SOLUTION 10ML BOTTLE. OU SCH ×2 (09:11→19:46)
[2019-02-14] MEDS: PILOCARPINE 1% OPHTH SOLUTION 15ML BOTTLE. OU SCH ×3 (09:11→19:46)
[2019-02-14] MEDS: TIMOLOL 0.5% OPHTH SOLUTION 5ML BOTTLE. OD SCH ×2 (09:11→19:46)
[2019-02-14] MEDS: ACETAMINOPHEN 325 MG TABLET PO PRN (15:39)
[2019-02-14 16:45] VITALS: BP 156/84
--- NOTE | 2019-02-14 18:07 | PN ---
DATE: 02/14/2019 SUBJECTIVE: The patient was seen today, met with the staff, chart reviewed. The patient is still irritable and carcamo today, wants to be left alone. The patient also appears to be confused, has a staring look. OBJECTIVE: VITAL SIGNS: Temperature 97.2, blood pressure 164/78, pulse 94, respirations 24, O2 sat 96%. Slept about 2 hours last night. CURRENT MEDICATIONS: The patient's current medications include lorazepam 0.5 mg daily, mirtazapine 15 mg at night, trazodone 50 mg at bedtime, Klonopin 0.125 mg t.i.d. The patient denies of any side effects. ASSESSMENT: Major neurocognitive disorder, Alzheimer's, vascular with delusions, depression and behavioral disturbances. PLAN: To continue with the treatment. DAMIAN CROWE MD DR: FLORIN/krzysztof JOB#: [id number] / [id number]
[2019-02-14] MEDS: PATCH REMOVAL. MC SCH (19:24)
[2019-02-14] MEDS: ATORVASTATIN CALCIUM 20 MG TABLET PO SCH (19:24)
[2019-02-14] MEDS: TAMSULOSIN 0.4 MG CAP.ER.24H. PO SCH (19:24)
[2019-02-14] MEDS: MIRTAZAPINE 15 MG TABLET PO SCH (19:25)
[2019-02-14] MEDS: LATANOPROST 0.005% OPHTH SOLUTION 2.5ML BOTTLE. OU SCH (19:46)
--- NOTE | 2019-02-14 21:54 | NUR ---
Pt resting in bed with eyes closed at shift change. Pt irritable, confused, and disorganized upon approach. Pt initially compliant with HS medications but then refused to take last two pills. Pt held HS Remeron in his mouth for several minutes before attempting to spit it out when he thought staff was not looking but most of pill had already dissolved by that time. Pt refused eye drops this evening.
[2019-02-15] MEDS: ACETAMINOPHEN 325 MG TABLET PO PRN (01:03)
[2019-02-15] MEDS: LEVOTHYROXINE 75 MCG TABLET PO SCH (05:06)
[2019-02-15 05:35] VITALS: BP 146/68
[2019-02-15] MEDS: DORZOLAMIDE 2% OPHTH SOLUTION 10ML BOTTLE. OU SCH ×2 (09:00→19:58)
[2019-02-15] MEDS: LIDOCAINE (700MG/PATCH) PATCH. TD SCH (09:02)
[2019-02-15] MEDS: MULTIVITAMIN I-VITE TABLET. PO SCH ×2 (09:03→19:58)
[2019-02-15] MEDS: ASPIRIN 81 MG TAB.CHEW PO SCH (09:03)
[2019-02-15] MEDS: CLOPIDOGREL BISULFATE 75 MG TABLET PO SCH (09:03)
[2019-02-15] MEDS: ALLOPURINOL 100 MG TABLET. PO SCH (09:03)
[2019-02-15] MEDS: ATENOLOL 50 MG TABLET PO SCH (09:04)
[2019-02-15] MEDS: LANSOPRAZOLE 30 MG TAB.RAP.DR PO SCH (09:25)
[2019-02-15] MEDS: PILOCARPINE 1% OPHTH SOLUTION 15ML BOTTLE. OU SCH ×3 (09:26→19:58)
[2019-02-15] MEDS: TIMOLOL 0.5% OPHTH SOLUTION 5ML BOTTLE. OD SCH ×2 (09:27→19:58)
[2019-02-15] MEDS: BRIMONIDINE 0.2% OPHTH SOLUTION 5ML BOTTLE. OU SCH ×2 (09:27→19:58)
[2019-02-15] MEDS: NYSTATIN TOPICAL POWDER 15GM BOTTLE. TP SCH ×2 (09:27→21:00)
[2019-02-15] MEDS: clonazePAM 0.5 MG TABLET PO SCH ×3 (09:28→19:59)
[2019-02-15 15:38] VITALS: BP 120/60
[2019-02-15] MEDS: TAMSULOSIN 0.4 MG CAP.ER.24H. PO SCH (19:58)
[2019-02-15] MEDS: LATANOPROST 0.005% OPHTH SOLUTION 2.5ML BOTTLE. OU SCH (19:58)
[2019-02-15] MEDS: traZODone 50 MG TABLET. PO PRN (19:59)
[2019-02-15] MEDS: ATORVASTATIN CALCIUM 20 MG TABLET PO SCH (19:59)
[2019-02-15] MEDS: MIRTAZAPINE 15 MG TABLET PO SCH (19:59)
--- NOTE | 2019-02-15 20:00 | NUR ---
Behavior Intervention Response and Plan: BIRP Note: Behavior: Assumed Care of patient, patient located in Day Room at shift change. Patient exhibited the following behavior Wandering, Restless, Disorganized. Brief assessment on rounds of vital signs, medication needs, lab studies, and pain. Treatment plan problems . Intervention: Patient assessed and the following interventions initiated safety checks 15 Minute Checks Head to toe Assessment , Medications , Cognitive Assessment. Response: After interactions and interventions patient responded in the following manner, Demanding , Resistive ,Delusions. Continue to assess behaviors and condition will continue to monitor throughout the shift as needed. Patient educated on ADL's, and hand hygiene. 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 Continue to assess patient for changes in above assessment. Monitor for medication needs, pain, and safety concerns. Hourly rounding performed to ensure safe environment.
[2019-02-15] MEDS: PATCH REMOVAL. MC SCH (21:00)
--- NOTE | 2019-02-15 22:46 | PDOC ---
Exam Note: Scott Note: Please also refer to the separate dictated note~for this date of service dictated separately.~Patient seen individually. Discussed the patient with Nursing staff reviewed the chart.~Reviewed interim history and current functioning. Reviewed vital signs,~Labs/ Radiology~and current medications noted below. Continue current treatment with the changes noted in the dictated addendum note Assessment: Vital Signs: Vital Signs Date Time Temp Pulse Resp B/P (MAP) Pulse Ox O2 Delivery O2 Flow Rate FiO2 02/15/19 15:38 98.1 74 20 120/60 (80) 94 Room Air I&O Intake and Output 02/15/19 07:00 Intake Total 480 ml Balance 480 ml Intake Oral 480 ml Current Medications: Meds: Current Medications Sodium Chloride 1,000 ml @ 1,000 mls/hr 1X ONCE IV Last administered on at 17:31; Start 01/26/19 at 17:30; Stop 01/26/19 at 18:29; Status DC Lorazepam (Ativan) 1 mg 1X ONCE IV Last administered on 01/26/19at 21:22; Start 01/26/19 at 21:15; Stop 01/26/19 at 21:23; Status DC Lorazepam (Ativan) 1 mg 1X ONCE IV Last administered on 01/26/19at 22:44; Start 01/26/19 at 22:30; Stop 01/26/19 at 22:32; Status DC Acetaminophen (Tylenol) 650 mg PRN Q6HRS PRN PO PAIN / TEMP; Start 01/27/19 at 00:00; Status Cancel Multi-Ingredient Ointment (Analgesic [place]) 1 edyta PRN QID PRN TP MUSCLE PAIN; Start 01/27/19 at 00:00 Al Hydroxide/Mg Hydroxide (Mylanta Plus Xs) 15 ml PRN AFTMEALHC PRN PO DYSPEPSIA; Start 01/27/19 at 00:00 Magnesium Hydroxide (Milk Of Magnesia) 2,400 mg PRN QHS PRN PO CONSTIPATION Last administered on 02/03/19at 08:05; Start 01/27/19 at 00:00 Clonazepam (KlonoPIN) 0.125 mg TID PO Last administered on 02/15/19at 19:59; Start 01/27/19 at 09:00 Paroxetine HCl (Paxil) 40 mg DAILY PO Last administered on 02/01/19 08:27; Start 01/27/19 at 09:00; Stop 02/01/19 at 18:49; Status DC Trazodone HCl (Desyrel) 12.5 mg QHS PO ; Start 01/27/19 at 21:00; Stop 01/27/19 at 21:00; Status DC Olanzapine (ZyPREXA ZYDIS) 2.5 mg PRN Q2HR PRN PO PSYCHOSIS Last administered on 01/31/19 08:47; Start 01/27/19 at 01:00; Stop 01/31/19 at 20:14; Status DC Acetaminophen (Tylenol) 650 mg PRN QID PRN PO PAIN Last administered on 01:03; Start 01/27/19 at 01:00 Albuterol Sulfate (Ventolin) 1 mg PRN Q6HRS PRN INH SHORTNESS OF BREATH; Start 01/27/19 at 01:00 Aspirin (Hira Aspirin) 325 mg DAILYWBKFT PO Last administered on 02/01/19 08: 27; Start 01/27/19 at 08:00; Stop 02/01/19 at 13:38; Status DC Clonidine HCl (Catapres) 0.1 mg PRN DAILY PRN PO HYPERTENSION, SEE COMMENTS; Start 01/27/19 at 01:00 Clopidogrel Bisulfate (Plavix) 75 mg DAILY PO Last administered on 02/15/19 09 :03; Start 01/27/19 at 09:00 Gabapentin (Neurontin) 100 mg BID94 PO Last administered on 02/05/19at 08:34; Start 01/27/19 at 09:00; Stop 02/05/19 at 16:10; Status DC Gabapentin (Neurontin) 100 mg QHS PO Last administered on 02/04/19 20:17; Start 01/27/19 at 21:00; Stop 02/05/19 at 16:10; Status DC Levothyroxine Sodium (Synthroid) 75 mcg DAILY06 PO Last administered on 05:06; Start 01/27/19 at 06:00 Losartan Potassium (Cozaar) 50 mg DAILY PO Last administered on 01/27/19at 13:26 ; Start 01/27/19 at 09:00; Stop 01/27/19 at 14:32; Status DC Tamsulosin HCl (Flomax) 0.4 mg DAILY PO Last administered on 02/05/19 08:34; Start 01/27/19 at 09:00; Stop 02/05/19 at 16:10; Status DC Multivitamins/ Minerals (I-Alis) 1 tab BID PO Last administered on 02/15/19 19 :58; Start 01/27/19 at 09:00 Allopurinol (Zyloprim) 150 mg DAILY PO Last administered on 02/15/19at 09:03; Start 01/27/19 at 09:00 Non-Formulary Medication (Aloe Vera/ Collagen (Sensi-Care Perineal Cleanser)) 1 edyta BID TP ; Start 01/27/19 at 09:00; Stop 01/27/19 at 09:00; Status DC Atenolol (Tenormin) 100 mg DAILY PO Last administered on 02/15/19at 09:04; Start 01/27/19 at 09:00 Atorvastatin Calcium (Lipitor) 40 mg HS PO Last administered on 02/15/19at 19:59 ; Start 01/27/19 at 21:00 Brimonidine Tartrate (Alphagan) 1 drop BID OD ; Start 01/27/19 at 09:00; Stop at 12:36; Status DC Dorzolamide HCl (Trusopt) 1 drop BID OD ; Start 01/27/19 at 09:00; Stop at 12:39; Status DC Finasteride (Proscar) 5 mg DAILY PO Last administered on 02/05/19 08:34; Start 01/27/19 at 09:00; Stop 02/05/19 at 16:10; Status DC Folic Acid (Folic Acid) 1 mg DAILY PO Last administered on 02/01/19 08:26; Start 01/27/19 at 09:00; Stop 02/01/19 at 13:38; Status DC Hydrochlorothiazide (Microzide) 12.5 mg DAILY PO Last administered on at 13:27; Start 01/27/19 at 09:00; Stop 01/27/19 at 14:32; Status DC Lactobacillus Rhamnosus (Culturelle) 1 cap DAILY PO Last administered on at 08:34; Start 01/27/19 at 09:00; Stop 02/05/19 at 16:10; Status DC Latanoprost (Xalatan) 1 drop QHS OU Last administered on 02/15/19 19:58; Start 01/27/19 at 21:00 Multivitamins/ Calcium (Thera-M Plus) 1 tab DAILY PO Last administered on 08:26; Start 01/27/19 at 09:00; Stop 02/01/19 at 13:38; Status DC Pantoprazole Sodium (Protonix) 40 mg DAILYAC PO Last administered on 01/28/19 10:03; Start 01/27/19 at 07:30; Stop 01/29/19 at 11:24; Status DC Pilocarpine HCl (Pilocar) 1 drop TID OD ; Start 01/27/19 at 09:00; Stop at 12:38; Status DC Timolol Maleate (Timoptic 0.5% Ophth) 1 drop BID OD Last administered on 19:58; Start 01/27/19 at 07:15 Brimonidine Tartrate (Alphagan) 1 drop BID OU Last administered on 02/15/19 19 :58; Start 01/27/19 at 12:36 Pilocarpine HCl (Pilocar) 1 drop TID OU Last administered on 02/15/19 19:58; Start 01/27/19 at 12:38 Dorzolamide HCl (Trusopt) 1 drop TID OU Last administered on 02/05/19 14:00; Start 01/27/19 at 14:00; Stop 02/05/19 at 16:11; Status DC Olanzapine (ZyPREXA ZYDIS) 2.5 mg PRN Q2HR PRN PO PSYCHOSIS; Start 01/27/19 at 17:30; Stop 01/29/19 at 17:13; Status DC Trazodone HCl (Desyrel) 50 mg PRN QHS PRN PO INSOMNIA, MAY REPEAT X1 Last administered on 02/15/19 19:59; Start 01/27/19 at 17:30 Mirtazapine (Remeron) 7.5 mg QHS PO Last administered on 01/31/19 19:55; Start 01/28/19 at 21:00; Stop 02/01/19 at 18:50; Status DC Lansoprazole (Prevacid) 30 mg DAILYAC PO Last administered on 02/15/19at 09:25; Start 01/30/19 at 07:30 Tuberculin PPD (Tubersol) 0.1 ml 1X ONCE ID Last administered on 01/30/19at 15: 14; Start 01/30/19 at 14:45; Stop 01/30/19 at 14:52; Status DC Lidocaine (Lidoderm) 1 patch DAILY TD Last administered on 02/15/19at 09:02; Start 01/31/19 at 18:00 Miscellaneous (Lidoderm Patch Removal) 1 ea QHS MC Last administered on 19:24; Start 02/01/19 at 03:00 Olanzapine (ZyPREXA ZYDIS) 5 mg PRN Q2HR PRN PO PSYCHOSIS Last administered on 02/14/19at 06:01; Start 01/31/19 at 20:15 Aspirin (Children'S Aspirin) 81 mg DAILYWBKFT PO Last administered on at 09:03; Start 02/02/19 at 08:00 Paroxetine HCl (Paxil) 30 mg DAILY PO Last administered on 02/04/19at 11:29; Start 02/02/19 at 09:00; Stop 02/04/19 at 12:49; Status DC Mirtazapine (Remeron) 15 mg QHS PO Last administered on 02/15/19at 19:59; Start 02/01/19 at 21:00 Clonazepam (KlonoPIN) 0.25 mg 1X ONCE PO Last administered on 02/01/19at 23:48; Start 02/02/19 at 00:00; Stop 02/02/19 at 00:01; Status DC Clonazepam (KlonoPIN) 0.25 mg 1X ONCE PO Last administered on 02/02/19at 01:47; Start 02/02/19 at 02:00; Stop 02/02/19 at 02:01; Status DC Olanzapine (ZyPREXA IM) 5 mg DAILY IM ; Start 02/04/19 at 09:00; Stop 02/04/19 at 09:00; Status DC Lorazepam (Ativan) 0.5 mg DAILY IM ; Start 02/04/19 at 09:00; Stop 02/04/19 at 09: 00; Status DC Lorazepam (Ativan) 0.5 mg DAILY IM Last administered on 02/15/19 09:26; Start 02/03/19 at 11:45 Olanzapine (ZyPREXA IM) 5 mg DAILY IM Last administered on 02/03/19at 11:44; Start 02/03/19 at 11:45; Stop 02/05/19 at 18:32; Status DC Paroxetine HCl (Paxil) 20 mg DAILY PO Last administered on 02/08/19at 07:36; Start 02/05/19 at 09:00; Stop 02/08/19 at 08:59; Status DC Paroxetine HCl (Paxil) 10 mg DAILY PO Last administered on 02/10/19at 12:23; Start 02/08/19 at 09:00; Stop 02/11/19 at 08:59; Status DC Paroxetine HCl (Paxil) 5 mg DAILY PO Last administered on 02/13/19 09:10; Start 02/11/19 at 09:00; Stop 02/14/19 at 08:59; Status DC Tamsulosin HCl (Flomax) 0.4 mg QHS PO Last administered on 02/15/19at 19:58; Start 02/05/19 at 21:00 Dorzolamide HCl (Trusopt) 1 drop BID OU Last administered on 02/15/19 19:58; Start 02/05/19 at 21:00 Nystatin (Nystop) 15 edyta STK-MED ONCE TP Last administered on 02/05/19 21:04; Start 02/05/19 at 21:04; Stop 02/05/19 at 21:05; Status DC Nystatin (Nystop) 1 edyta BID TP Last administered on 02/15/19at 09:27; Start 02/05 at 21:30 Active Scripts Active Reported Sensi-Care Perineal Cleanser (Aloe Vera/Collagen) 118 Ml Solution 1 Edyta TP BID Paroxetine Hcl 40 Mg Tablet 40 Mg PO DAILY Trazodone Hcl 50 Mg Tablet 12.5 Mg PO QHS Dorzolamide Hcl 10 Ml Drops 1 Drp OD BID Timoptic (Timolol Maleate) 10 Ml Drops 1 Drp OD BID Pilocarpine Hcl 5 Mg Tablet 1 Drop OD TID Latanoprost 2.5 Ml Drops 1 Drop OU QHS Alphagan P (Brimonidine Tartrate) 5 Ml Drops 1 Drop OD BID Pantoprazole Sodium 40 Mg Tablet.dr 40 Mg PO DAILY Cozaar (Losartan Potassium) 50 Mg Tablet 50 Mg PO DAILY Levothyroxine Sodium 75 Mcg Tablet 75 Mcg PO DAILYAC Culturelle (Lactobacillus Rhamnosus Gg) 1 Each Capsule 1 Each PO DAILY Gabapentin (Gabapentin) 100 Mg Capsule 100 Mg PO QHS Gabapentin (Gabapentin) 100 Mg Capsule 100 Mg PO BID Finasteride 5 Mg Tablet 5 Mg PO DAILY Clonidine Hcl 0.1 Mg Tablet 0.1 Mg PO PRN DAILY PRN Lipitor (Atorvastatin Calcium) 40 Mg Tablet 40 Mg PO DAILY Atenolol 100 Mg Tablet 100 Mg PO DAILY Allopurinol 300 Mg Tablet 150 Mg PO DAILY Proair Hfa Inhaler (Albuterol Sulfate) 8.5 Gm Hfa.aer.ad 1 Puff INH PRN Q6HRS PRN Multivitamins (Multivitamin) 1 Each Tablet 1 Each PO DAILY Aspirin 325 Mg Tablet 325 Mg PO DAILY Folic Acid 1 Mg Tablet 1 Mg PO DAILY Clopidogrel (Clopidogrel Bisulfate) 75 Mg Tablet 75 Mg PO DAILY Macuvite Eye Care Tablet (A/C/E/Zinc Ox/Cupric Ox/Lutein) 1 Each Tablet 1 Each PO BID Tylenol (Acetaminophen) 325 Mg Tablet 650 Mg PO PRN QID PRN Clonazepam 0.125 Mg Tab.rapdis 0.125 Mg PO TID Tamsulosin Hcl 0.4 Mg Cap.er.24h 0.4 Mg PO DAILY Hydrochlorothiazide Tablet (Hydrochlorothiazide) 12.5 Mg Tablet 12.5 Mg PO DAILY I have reviewed the current psychotropics carefully including drug interactions. Risk benefit ratio favors no change other than as noted in my dictated progress note. Diagnosis: Problems: (1) Medical clearance for psychiatric admission (2) Anxiety disorder (3) Dementia with behavioral disturbance (4) Dementia, vascular, with delusions (5) Dementia, vascular, with depression (6) Dementia in Alzheimer's disease with delusions (7) Dementia in Alzheimer's disease with depression (8) Impulse control disorder PAOLO THOMAS MD Feb 15, 2019 22:46
--- NOTE | 2019-02-15 23:41 | PN ---
DATE: 02/15/2019 SUBJECTIVE: The patient was seen today, met with the staff, chart reviewed. The patient's behavior slightly improved, less irritable and carcamo. Staff reports the patient is participating in all the activities, able to cooperate with the staff and compliant with the treatment. OBSERVATION: VITAL SIGNS: Temperature 98, blood pressure 146/68, pulse 64, respirations 20, O2 sat 99%. He slept about 5 hours last night. MEDICATIONS: The patient's current medications include lorazepam 0.5 mg daily, mirtazapine 15 mg at night, trazodone 50 mg at bedtime, and Klonopin 0.125 mg t.i.d. p.o. The patient has not had any falls. No major side effects. No major physical complaints. ASSESSMENT: Major neurocognitive disorder, vascular with delusions, depression, and behavioral disturbances. PLAN: To continue with the treatment. DAMIAN CROWE MD DR: FLORIN/krzysztof JOB#: [id number] / [id number]
[2019-02-16] MEDS: ACETAMINOPHEN 325 MG TABLET PO PRN (03:01)
[2019-02-16] MEDS: LEVOTHYROXINE 75 MCG TABLET PO SCH (05:09)
[2019-02-16 06:32] VITALS: BP 100/60
[2019-02-16] MEDS: ASPIRIN 81 MG TAB.CHEW PO SCH ×2 (08:18→12:06)
[2019-02-16] MEDS: LANSOPRAZOLE 30 MG TAB.RAP.DR PO SCH ×2 (08:18→12:06)
[2019-02-16] MEDS: TIMOLOL 0.5% OPHTH SOLUTION 5ML BOTTLE. OD SCH ×3 (08:19→20:38)
[2019-02-16] MEDS: CLOPIDOGREL BISULFATE 75 MG TABLET PO SCH ×2 (08:20→12:08)
[2019-02-16] MEDS: BRIMONIDINE 0.2% OPHTH SOLUTION 5ML BOTTLE. OU SCH ×3 (08:20→20:38)
[2019-02-16] MEDS: DORZOLAMIDE 2% OPHTH SOLUTION 10ML BOTTLE. OU SCH ×3 (08:20→20:37)
[2019-02-16] MEDS: PILOCARPINE 1% OPHTH SOLUTION 15ML BOTTLE. OU SCH ×4 (08:20→20:38)
[2019-02-16] MEDS: MULTIVITAMIN I-VITE TABLET. PO SCH ×3 (08:20→20:26)
[2019-02-16] MEDS: LIDOCAINE (700MG/PATCH) PATCH. TD SCH ×2 (08:21→12:09)
[2019-02-16] MEDS: ALLOPURINOL 100 MG TABLET. PO SCH ×2 (08:21→12:09)
[2019-02-16] MEDS: clonazePAM 0.5 MG TABLET PO SCH ×4 (08:22→20:28)
--- NOTE | 2019-02-16 10:02 | NUR ---
Pt is sleeping but easily arousable. No agitation or aggression at this time. No hallucinations or delusions noted.
[2019-02-16] MEDS: ATENOLOL 50 MG TABLET PO SCH (12:08)
[2019-02-16] MEDS: NYSTATIN TOPICAL POWDER 15GM BOTTLE. TP SCH ×2 (12:09→20:26)
[2019-02-16 17:42] VITALS: BP 125/64
[2019-02-16] MEDS: ATORVASTATIN CALCIUM 20 MG TABLET PO SCH (20:25)
[2019-02-16] MEDS: TAMSULOSIN 0.4 MG CAP.ER.24H. PO SCH (20:26)
[2019-02-16] MEDS: MIRTAZAPINE 15 MG TABLET PO SCH (20:26)
[2019-02-16] MEDS: traZODone 50 MG TABLET. PO PRN ×2 (20:27)
[2019-02-16] MEDS: LATANOPROST 0.005% OPHTH SOLUTION 2.5ML BOTTLE. OU SCH (20:38)
[2019-02-16] MEDS: PATCH REMOVAL. MC SCH (21:00)
--- NOTE | 2019-02-16 22:20 | PDOC ---
Exam Note: Scott Note: "This is a late entry for 02/15/19. The template note for 02/15/19 was completed in error and should be disregarded." Please also refer to the separate dictated note~for this date of service dictated separately.~Patient seen individually. Discussed the patient with Nursing staff reviewed the chart.~ Reviewed interim history and current functioning. Reviewed vital signs,~Labs/ Radiology~and current medications noted below. Continue current treatment with the changes noted in the dictated addendum note Assessment: Vital Signs: Vital Signs Date Time Temp Pulse Resp B/P (MAP) Pulse Ox O2 Delivery O2 Flow Rate FiO2 02/16/19 17:42 98.1 74 18 125/64 (84) 91 02/15/19 15:38 Room Air I&O Intake and Output 02/16/19 07:00 Intake Total 840 ml Balance 840 ml Intake Oral 840 ml Current Medications: Meds: Current Medications Sodium Chloride 1,000 ml @ 1,000 mls/hr 1X ONCE IV Last administered on at 17:31; Start 01/26/19 at 17:30; Stop 01/26/19 at 18:29; Status DC Lorazepam (Ativan) 1 mg 1X ONCE IV Last administered on 01/26/19at 21:22; Start 01/26/19 at 21:15; Stop 01/26/19 at 21:23; Status DC Lorazepam (Ativan) 1 mg 1X ONCE IV Last administered on 01/26/19at 22:44; Start 01/26/19 at 22:30; Stop 01/26/19 at 22:32; Status DC Acetaminophen (Tylenol) 650 mg PRN Q6HRS PRN PO PAIN / TEMP; Start 01/27/19 at 00:00; Status Cancel Multi-Ingredient Ointment (Analgesic [place]) 1 edyta PRN QID PRN TP MUSCLE PAIN; Start 01/27/19 at 00:00 Al Hydroxide/Mg Hydroxide (Mylanta Plus Xs) 15 ml PRN AFTMEALHC PRN PO DYSPEPSIA; Start 01/27/19 at 00:00 Magnesium Hydroxide (Milk Of Magnesia) 2,400 mg PRN QHS PRN PO CONSTIPATION Last administered on 02/03/19at 08:05; Start 01/27/19 at 00:00 Clonazepam (KlonoPIN) 0.125 mg TID PO Last administered on 02/16/19 20:28; Start 01/27/19 at 09:00 Paroxetine HCl (Paxil) 40 mg DAILY PO Last administered on 02/01/19 08:27; Start 01/27/19 at 09:00; Stop 02/01/19 at 18:49; Status DC Trazodone HCl (Desyrel) 12.5 mg QHS PO ; Start 01/27/19 at 21:00; Stop 01/27/19 at 21:00; Status DC Olanzapine (ZyPREXA ZYDIS) 2.5 mg PRN Q2HR PRN PO PSYCHOSIS Last administered on 01/31/19 08:47; Start 01/27/19 at 01:00; Stop 01/31/19 at 20:14; Status DC Acetaminophen (Tylenol) 650 mg PRN QID PRN PO PAIN Last administered on 03:01; Start 01/27/19 at 01:00 Albuterol Sulfate (Ventolin) 1 mg PRN Q6HRS PRN INH SHORTNESS OF BREATH; Start 01/27/19 at 01:00 Aspirin (Hira Aspirin) 325 mg DAILYWBKFT PO Last administered on 02/01/19 08: 27; Start 01/27/19 at 08:00; Stop 02/01/19 at 13:38; Status DC Clonidine HCl (Catapres) 0.1 mg PRN DAILY PRN PO HYPERTENSION, SEE COMMENTS; Start 01/27/19 at 01:00 Clopidogrel Bisulfate (Plavix) 75 mg DAILY PO Last administered on 02/16/19 12 :08; Start 01/27/19 at 09:00 Gabapentin (Neurontin) 100 mg BID94 PO Last administered on 02/05/19 08:34; Start 01/27/19 at 09:00; Stop 02/05/19 at 16:10; Status DC Gabapentin (Neurontin) 100 mg QHS PO Last administered on 02/04/19 20:17; Start 01/27/19 at 21:00; Stop 02/05/19 at 16:10; Status DC Levothyroxine Sodium (Synthroid) 75 mcg DAILY06 PO Last administered on 05:09; Start 01/27/19 at 06:00 Losartan Potassium (Cozaar) 50 mg DAILY PO Last administered on 01/27/19 13:26 ; Start 01/27/19 at 09:00; Stop 01/27/19 at 14:32; Status DC Tamsulosin HCl (Flomax) 0.4 mg DAILY PO Last administered on 02/05/19 08:34; Start 01/27/19 at 09:00; Stop 02/05/19 at 16:10; Status DC Multivitamins/ Minerals (I-Alis) 1 tab BID PO Last administered on 02/16/19 20 :26; Start 01/27/19 at 09:00 Allopurinol (Zyloprim) 150 mg DAILY PO Last administered on 02/16/19 12:09; Start 01/27/19 at 09:00 Non-Formulary Medication (Aloe Vera/ Collagen (Sensi-Care Perineal Cleanser)) 1 edyta BID TP ; Start 01/27/19 at 09:00; Stop 01/27/19 at 09:00; Status DC Atenolol (Tenormin) 100 mg DAILY PO Last administered on 02/15/19 09:04; Start 01/27/19 at 09:00 Atorvastatin Calcium (Lipitor) 40 mg HS PO Last administered on 02/16/19 20:25 ; Start 01/27/19 at 21:00 Brimonidine Tartrate (Alphagan) 1 drop BID OD ; Start 01/27/19 at 09:00; Stop at 12:36; Status DC Dorzolamide HCl (Trusopt) 1 drop BID OD ; Start 01/27/19 at 09:00; Stop at 12:39; Status DC Finasteride (Proscar) 5 mg DAILY PO Last administered on 02/05/19 08:34; Start 01/27/19 at 09:00; Stop 02/05/19 at 16:10; Status DC Folic Acid (Folic Acid) 1 mg DAILY PO Last administered on 02/01/19 08:26; Start 01/27/19 at 09:00; Stop 02/01/19 at 13:38; Status DC Hydrochlorothiazide (Microzide) 12.5 mg DAILY PO Last administered on at 13:27; Start 01/27/19 at 09:00; Stop 01/27/19 at 14:32; Status DC Lactobacillus Rhamnosus (Culturelle) 1 cap DAILY PO Last administered on 08:34; Start 01/27/19 at 09:00; Stop 02/05/19 at 16:10; Status DC Latanoprost (Xalatan) 1 drop QHS OU Last administered on 02/16/19 20:38; Start 01/27/19 at 21:00 Multivitamins/ Calcium (Thera-M Plus) 1 tab DAILY PO Last administered on 08:26; Start 01/27/19 at 09:00; Stop 02/01/19 at 13:38; Status DC Pantoprazole Sodium (Protonix) 40 mg DAILYAC PO Last administered on 01/28/19 10:03; Start 01/27/19 at 07:30; Stop 01/29/19 at 11:24; Status DC Pilocarpine HCl (Pilocar) 1 drop TID OD ; Start 01/27/19 at 09:00; Stop at 12:38; Status DC Timolol Maleate (Timoptic 0.5% Ophth) 1 drop BID OD Last administered on 20:38; Start 01/27/19 at 07:15 Brimonidine Tartrate (Alphagan) 1 drop BID OU Last administered on 02/16/19 20 :38; Start 01/27/19 at 12:36 Pilocarpine HCl (Pilocar) 1 drop TID OU Last administered on 02/16/19 20:38; Start 01/27/19 at 12:38 Dorzolamide HCl (Trusopt) 1 drop TID OU Last administered on 02/05/19 14:00; Start 01/27/19 at 14:00; Stop 02/05/19 at 16:11; Status DC Olanzapine (ZyPREXA ZYDIS) 2.5 mg PRN Q2HR PRN PO PSYCHOSIS; Start 01/27/19 at 17:30; Stop 01/29/19 at 17:13; Status DC Trazodone HCl (Desyrel) 50 mg PRN QHS PRN PO INSOMNIA, MAY REPEAT X1 Last administered on 02/16/19 20:27; Start 01/27/19 at 17:30 Mirtazapine (Remeron) 7.5 mg QHS PO Last administered on 01/31/19 19:55; Start 01/28/19 at 21:00; Stop 02/01/19 at 18:50; Status DC Lansoprazole (Prevacid) 30 mg DAILYAC PO Last administered on 02/16/19 12:06; Start 01/30/19 at 07:30 Tuberculin PPD (Tubersol) 0.1 ml 1X ONCE ID Last administered on 01/30/19 15: 14; Start 01/30/19 at 14:45; Stop 01/30/19 at 14:52; Status DC Lidocaine (Lidoderm) 1 patch DAILY TD Last administered on 02/16/19 12:09; Start 01/31/19 at 18:00 Miscellaneous (Lidoderm Patch Removal) 1 ea QHS MC Last administered on 21:00; Start 02/01/19 at 03:00 Olanzapine (ZyPREXA ZYDIS) 5 mg PRN Q2HR PRN PO PSYCHOSIS Last administered on 02/14/19 06:01; Start 01/31/19 at 20:15 Aspirin (Children'S Aspirin) 81 mg DAILYWBKFT PO Last administered on 12:06; Start 02/02/19 at 08:00 Paroxetine HCl (Paxil) 30 mg DAILY PO Last administered on 02/04/19 11:29; Start 02/02/19 at 09:00; Stop 02/04/19 at 12:49; Status DC Mirtazapine (Remeron) 15 mg QHS PO Last administered on 02/16/19 20:26; Start 02/01/19 at 21:00 Clonazepam (KlonoPIN) 0.25 mg 1X ONCE PO Last administered on 02/01/19 23:48; Start 02/02/19 at 00:00; Stop 02/02/19 at 00:01; Status DC Clonazepam (KlonoPIN) 0.25 mg 1X ONCE PO Last administered on 02/02/19 01:47; Start 02/02/19 at 02:00; Stop 02/02/19 at 02:01; Status DC Olanzapine (ZyPREXA IM) 5 mg DAILY IM ; Start 02/04/19 at 09:00; Stop 02/04/19 at 09:00; Status DC Lorazepam (Ativan) 0.5 mg DAILY IM ; Start 02/04/19 at 09:00; Stop 02/04/19 at 09: 00; Status DC Lorazepam (Ativan) 0.5 mg DAILY IM Last administered on 02/15/19 09:26; Start 02/03/19 at 11:45 Olanzapine (ZyPREXA IM) 5 mg DAILY IM Last administered on 02/03/19at 11:44; Start 02/03/19 at 11:45; Stop 02/05/19 at 18:32; Status DC Paroxetine HCl (Paxil) 20 mg DAILY PO Last administered on 02/08/19at 07:36; Start 02/05/19 at 09:00; Stop 02/08/19 at 08:59; Status DC Paroxetine HCl (Paxil) 10 mg DAILY PO Last administered on 02/10/19 12:23; Start 02/08/19 at 09:00; Stop 02/11/19 at 08:59; Status DC Paroxetine HCl (Paxil) 5 mg DAILY PO Last administered on 02/13/19 09:10; Start 02/11/19 at 09:00; Stop 02/14/19 at 08:59; Status DC Tamsulosin HCl (Flomax) 0.4 mg QHS PO Last administered on 02/16/19 20:26; Start 02/05/19 at 21:00 Dorzolamide HCl (Trusopt) 1 drop BID OU Last administered on 02/16/19 20:37; Start 02/05/19 at 21:00 Nystatin (Nystop) 15 edyta STK-MED ONCE TP Last administered on 02/05/19 21:04; Start 02/05/19 at 21:04; Stop 02/05/19 at 21:05; Status DC Nystatin (Nystop) 1 edyta BID TP Last administered on 02/16/19 20:26; Start 02/05 at 21:30 Divalproex Sodium (Depakote Sprinkles) 125 mg 1500 PO ; Start 02/17/19 at 15:00 Active Scripts Active Reported Sensi-Care Perineal Cleanser (Aloe Vera/Collagen) 118 Ml Solution 1 Edyta TP BID Paroxetine Hcl 40 Mg Tablet 40 Mg PO DAILY Trazodone Hcl 50 Mg Tablet 12.5 Mg PO QHS Dorzolamide Hcl 10 Ml Drops 1 Drp OD BID Timoptic (Timolol Maleate) 10 Ml Drops 1 Drp OD BID Pilocarpine Hcl 5 Mg Tablet 1 Drop OD TID Latanoprost 2.5 Ml Drops 1 Drop OU QHS Alphagan P (Brimonidine Tartrate) 5 Ml Drops 1 Drop OD BID Pantoprazole Sodium 40 Mg Tablet.dr 40 Mg PO DAILY Cozaar (Losartan Potassium) 50 Mg Tablet 50 Mg PO DAILY Levothyroxine Sodium 75 Mcg Tablet 75 Mcg PO DAILYAC Culturelle (Lactobacillus Rhamnosus Gg) 1 Each Capsule 1 Each PO DAILY Gabapentin (Gabapentin) 100 Mg Capsule 100 Mg PO QHS Gabapentin (Gabapentin) 100 Mg Capsule 100 Mg PO BID Finasteride 5 Mg Tablet 5 Mg PO DAILY Clonidine Hcl 0.1 Mg Tablet 0.1 Mg PO PRN DAILY PRN Lipitor (Atorvastatin Calcium) 40 Mg Tablet 40 Mg PO DAILY Atenolol 100 Mg Tablet 100 Mg PO DAILY Allopurinol 300 Mg Tablet 150 Mg PO DAILY Proair Hfa Inhaler (Albuterol Sulfate) 8.5 Gm Hfa.aer.ad 1 Puff INH PRN Q6HRS PRN Multivitamins (Multivitamin) 1 Each Tablet 1 Each PO DAILY Aspirin 325 Mg Tablet 325 Mg PO DAILY Folic Acid 1 Mg Tablet 1 Mg PO DAILY Clopidogrel (Clopidogrel Bisulfate) 75 Mg Tablet 75 Mg PO DAILY Macuvite Eye Care Tablet (A/C/E/Zinc Ox/Cupric Ox/Lutein) 1 Each Tablet 1 Each PO BID Tylenol (Acetaminophen) 325 Mg Tablet 650 Mg PO PRN QID PRN Clonazepam 0.125 Mg Tab.rapdis 0.125 Mg PO TID Tamsulosin Hcl 0.4 Mg Cap.er.24h 0.4 Mg PO DAILY Hydrochlorothiazide Tablet (Hydrochlorothiazide) 12.5 Mg Tablet 12.5 Mg PO DAILY I have reviewed the current psychotropics carefully including drug interactions. Risk benefit ratio favors no change other than as noted in my dictated progress note. Diagnosis: Problems: (1) Medical clearance for psychiatric admission (2) Anxiety disorder (3) Dementia with behavioral disturbance (4) Dementia, vascular, with delusions (5) Dementia, vascular, with depression (6) Dementia in Alzheimer's disease with delusions (7) Dementia in Alzheimer's disease with depression (8) Impulse control disorder PAOLO THOMAS MD Feb 16, 2019 22:20
--- NOTE | 2019-02-16 22:35 | NUR ---
Nursing Note The patient was compliant with his medications and took them whole. The patient was appropriate during interactions with staff but was disoriented regarding location and situation. The patient is currently sleeping in his room.
--- NOTE | 2019-02-16 23:08 | PDOC ---
Exam Note: Scott Note: Please also refer to the separate dictated note~for this date of service dictated separately.~Patient seen individually. Discussed the patient with Nursing staff reviewed the chart.~Reviewed interim history and current functioning. Reviewed vital signs,~Labs/ Radiology~and current medications noted below. Continue current treatment with the changes noted in the dictated addendum note Assessment: Vital Signs: Vital Signs Date Time Temp Pulse Resp B/P (MAP) Pulse Ox O2 Delivery O2 Flow Rate FiO2 02/16/19 17:42 98.1 74 18 125/64 (84) 91 02/15/19 15:38 Room Air I&O Intake and Output 02/16/19 07:00 Intake Total 840 ml Balance 840 ml Intake Oral 840 ml Current Medications: Meds: Current Medications Sodium Chloride 1,000 ml @ 1,000 mls/hr 1X ONCE IV Last administered on 17:31; Start 01/26/19 at 17:30; Stop 01/26/19 at 18:29; Status DC Lorazepam (Ativan) 1 mg 1X ONCE IV Last administered on 01/26/19at 21:22; Start 01/26/19 at 21:15; Stop 01/26/19 at 21:23; Status DC Lorazepam (Ativan) 1 mg 1X ONCE IV Last administered on 01/26/19at 22:44; Start 01/26/19 at 22:30; Stop 01/26/19 at 22:32; Status DC Acetaminophen (Tylenol) 650 mg PRN Q6HRS PRN PO PAIN / TEMP; Start 01/27/19 at 00:00; Status Cancel Multi-Ingredient Ointment (Analgesic [place]) 1 edyta PRN QID PRN TP MUSCLE PAIN; Start 01/27/19 at 00:00 Al Hydroxide/Mg Hydroxide (Mylanta Plus Xs) 15 ml PRN AFTMEALHC PRN PO DYSPEPSIA; Start 01/27/19 at 00:00 Magnesium Hydroxide (Milk Of Magnesia) 2,400 mg PRN QHS PRN PO CONSTIPATION Last administered on 02/03/19at 08:05; Start 01/27/19 at 00:00 Clonazepam (KlonoPIN) 0.125 mg TID PO Last administered on 02/16/19at 20:28; Start 01/27/19 at 09:00 Paroxetine HCl (Paxil) 40 mg DAILY PO Last administered on 02/01/19 08:27; Start 01/27/19 at 09:00; Stop 02/01/19 at 18:49; Status DC Trazodone HCl (Desyrel) 12.5 mg QHS PO ; Start 01/27/19 at 21:00; Stop 01/27/19 at 21:00; Status DC Olanzapine (ZyPREXA ZYDIS) 2.5 mg PRN Q2HR PRN PO PSYCHOSIS Last administered on 01/31/19 08:47; Start 01/27/19 at 01:00; Stop 01/31/19 at 20:14; Status DC Acetaminophen (Tylenol) 650 mg PRN QID PRN PO PAIN Last administered on 03:01; Start 01/27/19 at 01:00 Albuterol Sulfate (Ventolin) 1 mg PRN Q6HRS PRN INH SHORTNESS OF BREATH; Start 01/27/19 at 01:00 Aspirin (Hira Aspirin) 325 mg DAILYWBKFT PO Last administered on 02/01/19 08: 27; Start 01/27/19 at 08:00; Stop 02/01/19 at 13:38; Status DC Clonidine HCl (Catapres) 0.1 mg PRN DAILY PRN PO HYPERTENSION, SEE COMMENTS; Start 01/27/19 at 01:00 Clopidogrel Bisulfate (Plavix) 75 mg DAILY PO Last administered on 02/16/19 12 :08; Start 01/27/19 at 09:00 Gabapentin (Neurontin) 100 mg BID94 PO Last administered on 02/05/19 08:34; Start 01/27/19 at 09:00; Stop 02/05/19 at 16:10; Status DC Gabapentin (Neurontin) 100 mg QHS PO Last administered on 02/04/19 20:17; Start 01/27/19 at 21:00; Stop 02/05/19 at 16:10; Status DC Levothyroxine Sodium (Synthroid) 75 mcg DAILY06 PO Last administered on 05:09; Start 01/27/19 at 06:00 Losartan Potassium (Cozaar) 50 mg DAILY PO Last administered on 01/27/19 13:26 ; Start 01/27/19 at 09:00; Stop 01/27/19 at 14:32; Status DC Tamsulosin HCl (Flomax) 0.4 mg DAILY PO Last administered on 02/05/19 08:34; Start 01/27/19 at 09:00; Stop 02/05/19 at 16:10; Status DC Multivitamins/ Minerals (I-Alis) 1 tab BID PO Last administered on 02/16/19 20 :26; Start 01/27/19 at 09:00 Allopurinol (Zyloprim) 150 mg DAILY PO Last administered on 02/16/19at 12:09; Start 01/27/19 at 09:00 Non-Formulary Medication (Aloe Vera/ Collagen (Sensi-Care Perineal Cleanser)) 1 edyta BID TP ; Start 01/27/19 at 09:00; Stop 01/27/19 at 09:00; Status DC Atenolol (Tenormin) 100 mg DAILY PO Last administered on 02/15/19 09:04; Start 01/27/19 at 09:00 Atorvastatin Calcium (Lipitor) 40 mg HS PO Last administered on 02/16/19at 20:25 ; Start 01/27/19 at 21:00 Brimonidine Tartrate (Alphagan) 1 drop BID OD ; Start 01/27/19 at 09:00; Stop at 12:36; Status DC Dorzolamide HCl (Trusopt) 1 drop BID OD ; Start 01/27/19 at 09:00; Stop at 12:39; Status DC Finasteride (Proscar) 5 mg DAILY PO Last administered on 02/05/19 08:34; Start 01/27/19 at 09:00; Stop 02/05/19 at 16:10; Status DC Folic Acid (Folic Acid) 1 mg DAILY PO Last administered on 02/01/19 08:26; Start 01/27/19 at 09:00; Stop 02/01/19 at 13:38; Status DC Hydrochlorothiazide (Microzide) 12.5 mg DAILY PO Last administered on at 13:27; Start 01/27/19 at 09:00; Stop 01/27/19 at 14:32; Status DC Lactobacillus Rhamnosus (Culturelle) 1 cap DAILY PO Last administered on 08:34; Start 01/27/19 at 09:00; Stop 02/05/19 at 16:10; Status DC Latanoprost (Xalatan) 1 drop QHS OU Last administered on 02/16/19 20:38; Start 01/27/19 at 21:00 Multivitamins/ Calcium (Thera-M Plus) 1 tab DAILY PO Last administered on 08:26; Start 01/27/19 at 09:00; Stop 02/01/19 at 13:38; Status DC Pantoprazole Sodium (Protonix) 40 mg DAILYAC PO Last administered on 01/28/19 10:03; Start 01/27/19 at 07:30; Stop 01/29/19 at 11:24; Status DC Pilocarpine HCl (Pilocar) 1 drop TID OD ; Start 01/27/19 at 09:00; Stop at 12:38; Status DC Timolol Maleate (Timoptic 0.5% Ophth) 1 drop BID OD Last administered on 20:38; Start 01/27/19 at 07:15 Brimonidine Tartrate (Alphagan) 1 drop BID OU Last administered on 02/16/19 20 :38; Start 01/27/19 at 12:36 Pilocarpine HCl (Pilocar) 1 drop TID OU Last administered on 02/16/19 20:38; Start 01/27/19 at 12:38 Dorzolamide HCl (Trusopt) 1 drop TID OU Last administered on 02/05/19 14:00; Start 01/27/19 at 14:00; Stop 02/05/19 at 16:11; Status DC Olanzapine (ZyPREXA ZYDIS) 2.5 mg PRN Q2HR PRN PO PSYCHOSIS; Start 01/27/19 at 17:30; Stop 01/29/19 at 17:13; Status DC Trazodone HCl (Desyrel) 50 mg PRN QHS PRN PO INSOMNIA, MAY REPEAT X1 Last administered on 02/16/19 20:27; Start 01/27/19 at 17:30 Mirtazapine (Remeron) 7.5 mg QHS PO Last administered on 01/31/19 19:55; Start 01/28/19 at 21:00; Stop 02/01/19 at 18:50; Status DC Lansoprazole (Prevacid) 30 mg DAILYAC PO Last administered on 02/16/19at 12:06; Start 01/30/19 at 07:30 Tuberculin PPD (Tubersol) 0.1 ml 1X ONCE ID Last administered on 01/30/19at 15: 14; Start 01/30/19 at 14:45; Stop 01/30/19 at 14:52; Status DC Lidocaine (Lidoderm) 1 patch DAILY TD Last administered on 02/16/19at 12:09; Start 01/31/19 at 18:00 Miscellaneous (Lidoderm Patch Removal) 1 ea QHS MC Last administered on 21:00; Start 02/01/19 at 03:00 Olanzapine (ZyPREXA ZYDIS) 5 mg PRN Q2HR PRN PO PSYCHOSIS Last administered on 02/14/19 06:01; Start 01/31/19 at 20:15 Aspirin (Children'S Aspirin) 81 mg DAILYWBKFT PO Last administered on at 12:06; Start 02/02/19 at 08:00 Paroxetine HCl (Paxil) 30 mg DAILY PO Last administered on 02/04/19at 11:29; Start 02/02/19 at 09:00; Stop 02/04/19 at 12:49; Status DC Mirtazapine (Remeron) 15 mg QHS PO Last administered on 02/16/19at 20:26; Start 02/01/19 at 21:00 Clonazepam (KlonoPIN) 0.25 mg 1X ONCE PO Last administered on 02/01/19at 23:48; Start 02/02/19 at 00:00; Stop 02/02/19 at 00:01; Status DC Clonazepam (KlonoPIN) 0.25 mg 1X ONCE PO Last administered on 02/02/19at 01:47; Start 02/02/19 at 02:00; Stop 02/02/19 at 02:01; Status DC Olanzapine (ZyPREXA IM) 5 mg DAILY IM ; Start 02/04/19 at 09:00; Stop 02/04/19 at 09:00; Status DC Lorazepam (Ativan) 0.5 mg DAILY IM ; Start 02/04/19 at 09:00; Stop 02/04/19 at 09: 00; Status DC Lorazepam (Ativan) 0.5 mg DAILY IM Last administered on 02/15/19at 09:26; Start 02/03/19 at 11:45 Olanzapine (ZyPREXA IM) 5 mg DAILY IM Last administered on 02/03/19at 11:44; Start 02/03/19 at 11:45; Stop 02/05/19 at 18:32; Status DC Paroxetine HCl (Paxil) 20 mg DAILY PO Last administered on 02/08/19at 07:36; Start 02/05/19 at 09:00; Stop 02/08/19 at 08:59; Status DC Paroxetine HCl (Paxil) 10 mg DAILY PO Last administered on 02/10/19at 12:23; Start 02/08/19 at 09:00; Stop 02/11/19 at 08:59; Status DC Paroxetine HCl (Paxil) 5 mg DAILY PO Last administered on 02/13/19at 09:10; Start 02/11/19 at 09:00; Stop 02/14/19 at 08:59; Status DC Tamsulosin HCl (Flomax) 0.4 mg QHS PO Last administered on 02/16/19 20:26; Start 02/05/19 at 21:00 Dorzolamide HCl (Trusopt) 1 drop BID OU Last administered on 02/16/19at 20:37; Start 02/05/19 at 21:00 Nystatin (Nystop) 15 edyta STK-MED ONCE TP Last administered on 02/05/19 21:04; Start 02/05/19 at 21:04; Stop 02/05/19 at 21:05; Status DC Nystatin (Nystop) 1 edyta BID TP Last administered on 02/16/19at 20:26; Start 02/05 at 21:30 Divalproex Sodium (Depakote Sprinkles) 125 mg 1500 PO ; Start 02/17/19 at 15:00 Active Scripts Active Reported Sensi-Care Perineal Cleanser (Aloe Vera/Collagen) 118 Ml Solution 1 Edyta TP BID Paroxetine Hcl 40 Mg Tablet 40 Mg PO DAILY Trazodone Hcl 50 Mg Tablet 12.5 Mg PO QHS Dorzolamide Hcl 10 Ml Drops 1 Drp OD BID Timoptic (Timolol Maleate) 10 Ml Drops 1 Drp OD BID Pilocarpine Hcl 5 Mg Tablet 1 Drop OD TID Latanoprost 2.5 Ml Drops 1 Drop OU QHS Alphagan P (Brimonidine Tartrate) 5 Ml Drops 1 Drop OD BID Pantoprazole Sodium 40 Mg Tablet.dr 40 Mg PO DAILY Cozaar (Losartan Potassium) 50 Mg Tablet 50 Mg PO DAILY Levothyroxine Sodium 75 Mcg Tablet 75 Mcg PO DAILYAC Culturelle (Lactobacillus Rhamnosus Gg) 1 Each Capsule 1 Each PO DAILY Gabapentin (Gabapentin) 100 Mg Capsule 100 Mg PO QHS Gabapentin (Gabapentin) 100 Mg Capsule 100 Mg PO BID Finasteride 5 Mg Tablet 5 Mg PO DAILY Clonidine Hcl 0.1 Mg Tablet 0.1 Mg PO PRN DAILY PRN Lipitor (Atorvastatin Calcium) 40 Mg Tablet 40 Mg PO DAILY Atenolol 100 Mg Tablet 100 Mg PO DAILY Allopurinol 300 Mg Tablet 150 Mg PO DAILY Proair Hfa Inhaler (Albuterol Sulfate) 8.5 Gm Hfa.aer.ad 1 Puff INH PRN Q6HRS PRN Multivitamins (Multivitamin) 1 Each Tablet 1 Each PO DAILY Aspirin 325 Mg Tablet 325 Mg PO DAILY Folic Acid 1 Mg Tablet 1 Mg PO DAILY Clopidogrel (Clopidogrel Bisulfate) 75 Mg Tablet 75 Mg PO DAILY Macuvite Eye Care Tablet (A/C/E/Zinc Ox/Cupric Ox/Lutein) 1 Each Tablet 1 Each PO BID Tylenol (Acetaminophen) 325 Mg Tablet 650 Mg PO PRN QID PRN Clonazepam 0.125 Mg Tab.rapdis 0.125 Mg PO TID Tamsulosin Hcl 0.4 Mg Cap.er.24h 0.4 Mg PO DAILY Hydrochlorothiazide Tablet (Hydrochlorothiazide) 12.5 Mg Tablet 12.5 Mg PO DAILY I have reviewed the current psychotropics carefully including drug interactions. Risk benefit ratio favors no change other than as noted in my dictated progress note. Diagnosis: Problems: (1) Medical clearance for psychiatric admission (2) Anxiety disorder (3) Dementia with behavioral disturbance (4) Dementia, vascular, with delusions (5) Dementia, vascular, with depression (6) Dementia in Alzheimer's disease with delusions (7) Dementia in Alzheimer's disease with depression (8) Impulse control disorder PAOLO THOMAS MD Feb 16, 2019 23:08
[2019-02-17 06:32] VITALS: BP 139/61
[2019-02-17] MEDS: LEVOTHYROXINE 75 MCG TABLET PO SCH (07:36)
[2019-02-17] MEDS: ASPIRIN 81 MG TAB.CHEW PO SCH (07:36)
[2019-02-17] MEDS: ATENOLOL 50 MG TABLET PO SCH (07:37)
[2019-02-17] MEDS: CLOPIDOGREL BISULFATE 75 MG TABLET PO SCH (07:37)
[2019-02-17] MEDS: MULTIVITAMIN I-VITE TABLET. PO SCH ×2 (07:37→19:58)
[2019-02-17] MEDS: ALLOPURINOL 100 MG TABLET. PO SCH (07:58)
[2019-02-17] MEDS: LANSOPRAZOLE 30 MG TAB.RAP.DR PO SCH (07:58)
[2019-02-17] MEDS: LIDOCAINE (700MG/PATCH) PATCH. TD SCH (07:59)
[2019-02-17] MEDS: NYSTATIN TOPICAL POWDER 15GM BOTTLE. TP SCH ×2 (07:59→21:00)
[2019-02-17] MEDS: clonazePAM 0.5 MG TABLET PO SCH ×3 (08:01→19:59)
[2019-02-17] MEDS: BRIMONIDINE 0.2% OPHTH SOLUTION 5ML BOTTLE. OU SCH ×2 (08:02→21:00)
[2019-02-17] MEDS: TIMOLOL 0.5% OPHTH SOLUTION 5ML BOTTLE. OD SCH ×2 (08:02→21:00)
[2019-02-17] MEDS: PILOCARPINE 1% OPHTH SOLUTION 15ML BOTTLE. OU SCH ×3 (08:03→21:00)
[2019-02-17] MEDS: DORZOLAMIDE 2% OPHTH SOLUTION 10ML BOTTLE. OU SCH ×2 (08:03→21:00)
--- NOTE | 2019-02-17 09:22 | NUR ---
Nursing Note Pt sleeping but arouses. No behaviors thus far. Will assess more in depth later today.
[2019-02-17] MEDS: DIVALPROEX 125 MG CAP.SPRINK PO SCH (15:08)
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
[2019-02-17 16:32] VITALS: BP 112/69
[2019-02-17] MEDS: TAMSULOSIN 0.4 MG CAP.ER.24H. PO SCH (19:58)
[2019-02-17] MEDS: MIRTAZAPINE 15 MG TABLET PO SCH (19:58)
[2019-02-17] MEDS: ATORVASTATIN CALCIUM 20 MG TABLET PO SCH (19:58)
[2019-02-17] MEDS: PATCH REMOVAL. MC SCH (19:59)
[2019-02-17] MEDS: LATANOPROST 0.005% OPHTH SOLUTION 2.5ML BOTTLE. OU SCH (21:00)
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
--- NOTE | 2019-02-17 23:02 | PDOC ---
Exam Note: Scott Note: Please also refer to the separate dictated note~for this date of service dictated separately.~Patient seen individually. Discussed the patient with Nursing staff reviewed the chart.~Reviewed interim history and current functioning. Reviewed vital signs,~Labs/ Radiology~and current medications noted below. Continue current treatment with the changes noted in the dictated addendum note Assessment: Vital Signs: Vital Signs Date Time Temp Pulse Resp B/P (MAP) Pulse Ox O2 Delivery O2 Flow Rate FiO2 02/17/19 16:32 98.0 76 18 112/69 (83) 95 Room Air I&O Intake and Output 02/17/19 07:00 Intake Total 480 ml Balance 480 ml Intake Oral 480 ml # Bowel Movements 1 Current Medications: Meds: Current Medications Sodium Chloride 1,000 ml @ 1,000 mls/hr 1X ONCE IV Last administered on at 17:31; Start 01/26/19 at 17:30; Stop 01/26/19 at 18:29; Status DC Lorazepam (Ativan) 1 mg 1X ONCE IV Last administered on 01/26/19at 21:22; Start 01/26/19 at 21:15; Stop 01/26/19 at 21:23; Status DC Lorazepam (Ativan) 1 mg 1X ONCE IV Last administered on 01/26/19at 22:44; Start 01/26/19 at 22:30; Stop 01/26/19 at 22:32; Status DC Acetaminophen (Tylenol) 650 mg PRN Q6HRS PRN PO PAIN / TEMP; Start 01/27/19 at 00:00; Status Cancel Multi-Ingredient Ointment (Analgesic [place]) 1 edyta PRN QID PRN TP MUSCLE PAIN; Start 01/27/19 at 00:00 Al Hydroxide/Mg Hydroxide (Mylanta Plus Xs) 15 ml PRN AFTMEALHC PRN PO DYSPEPSIA; Start 01/27/19 at 00:00 Magnesium Hydroxide (Milk Of Magnesia) 2,400 mg PRN QHS PRN PO CONSTIPATION Last administered on 02/03/19at 08:05; Start 01/27/19 at 00:00 Clonazepam (KlonoPIN) 0.125 mg TID PO Last administered on 02/17/19at 19:59; Start 01/27/19 at 09:00 Paroxetine HCl (Paxil) 40 mg DAILY PO Last administered on 02/01/19 08:27; Start 01/27/19 at 09:00; Stop 02/01/19 at 18:49; Status DC Trazodone HCl (Desyrel) 12.5 mg QHS PO ; Start 01/27/19 at 21:00; Stop 01/27/19 at 21:00; Status DC Olanzapine (ZyPREXA ZYDIS) 2.5 mg PRN Q2HR PRN PO PSYCHOSIS Last administered on 01/31/19 08:47; Start 01/27/19 at 01:00; Stop 01/31/19 at 20:14; Status DC Acetaminophen (Tylenol) 650 mg PRN QID PRN PO PAIN Last administered on 03:01; Start 01/27/19 at 01:00 Albuterol Sulfate (Ventolin) 1 mg PRN Q6HRS PRN INH SHORTNESS OF BREATH; Start 01/27/19 at 01:00 Aspirin (Hira Aspirin) 325 mg DAILYWBKFT PO Last administered on 02/01/19 08: 27; Start 01/27/19 at 08:00; Stop 02/01/19 at 13:38; Status DC Clonidine HCl (Catapres) 0.1 mg PRN DAILY PRN PO HYPERTENSION, SEE COMMENTS; Start 01/27/19 at 01:00 Clopidogrel Bisulfate (Plavix) 75 mg DAILY PO Last administered on 02/17/19 07 :37; Start 01/27/19 at 09:00 Gabapentin (Neurontin) 100 mg BID94 PO Last administered on 02/05/19 08:34; Start 01/27/19 at 09:00; Stop 02/05/19 at 16:10; Status DC Gabapentin (Neurontin) 100 mg QHS PO Last administered on 02/04/19 20:17; Start 01/27/19 at 21:00; Stop 02/05/19 at 16:10; Status DC Levothyroxine Sodium (Synthroid) 75 mcg DAILY06 PO Last administered on 07:36; Start 01/27/19 at 06:00 Losartan Potassium (Cozaar) 50 mg DAILY PO Last administered on 01/27/19 13:26 ; Start 01/27/19 at 09:00; Stop 01/27/19 at 14:32; Status DC Tamsulosin HCl (Flomax) 0.4 mg DAILY PO Last administered on 02/05/19 08:34; Start 01/27/19 at 09:00; Stop 02/05/19 at 16:10; Status DC Multivitamins/ Minerals (I-Alis) 1 tab BID PO Last administered on 02/17/19 19 :58; Start 01/27/19 at 09:00 Allopurinol (Zyloprim) 150 mg DAILY PO Last administered on 02/17/19at 07:58; Start 01/27/19 at 09:00 Non-Formulary Medication (Aloe Vera/ Collagen (Sensi-Care Perineal Cleanser)) 1 edyta BID TP ; Start 01/27/19 at 09:00; Stop 01/27/19 at 09:00; Status DC Atenolol (Tenormin) 100 mg DAILY PO Last administered on 02/17/19at 07:37; Start 01/27/19 at 09:00 Atorvastatin Calcium (Lipitor) 40 mg HS PO Last administered on 02/17/19 19:58 ; Start 01/27/19 at 21:00 Brimonidine Tartrate (Alphagan) 1 drop BID OD ; Start 01/27/19 at 09:00; Stop at 12:36; Status DC Dorzolamide HCl (Trusopt) 1 drop BID OD ; Start 01/27/19 at 09:00; Stop at 12:39; Status DC Finasteride (Proscar) 5 mg DAILY PO Last administered on 02/05/19 08:34; Start 01/27/19 at 09:00; Stop 02/05/19 at 16:10; Status DC Folic Acid (Folic Acid) 1 mg DAILY PO Last administered on 02/01/19 08:26; Start 01/27/19 at 09:00; Stop 02/01/19 at 13:38; Status DC Hydrochlorothiazide (Microzide) 12.5 mg DAILY PO Last administered on at 13:27; Start 01/27/19 at 09:00; Stop 01/27/19 at 14:32; Status DC Lactobacillus Rhamnosus (Culturelle) 1 cap DAILY PO Last administered on 08:34; Start 01/27/19 at 09:00; Stop 02/05/19 at 16:10; Status DC Latanoprost (Xalatan) 1 drop QHS OU Last administered on 02/16/19at 20:38; Start 01/27/19 at 21:00 Multivitamins/ Calcium (Thera-M Plus) 1 tab DAILY PO Last administered on 08:26; Start 01/27/19 at 09:00; Stop 02/01/19 at 13:38; Status DC Pantoprazole Sodium (Protonix) 40 mg DAILYAC PO Last administered on 01/28/19 10:03; Start 01/27/19 at 07:30; Stop 01/29/19 at 11:24; Status DC Pilocarpine HCl (Pilocar) 1 drop TID OD ; Start 01/27/19 at 09:00; Stop at 12:38; Status DC Timolol Maleate (Timoptic 0.5% Ophth) 1 drop BID OD Last administered on 08:02; Start 01/27/19 at 07:15 Brimonidine Tartrate (Alphagan) 1 drop BID OU Last administered on 02/17/19 08 :02; Start 01/27/19 at 12:36 Pilocarpine HCl (Pilocar) 1 drop TID OU Last administered on 02/17/19 08:03; Start 01/27/19 at 12:38 Dorzolamide HCl (Trusopt) 1 drop TID OU Last administered on 02/05/19 14:00; Start 01/27/19 at 14:00; Stop 02/05/19 at 16:11; Status DC Olanzapine (ZyPREXA ZYDIS) 2.5 mg PRN Q2HR PRN PO PSYCHOSIS; Start 01/27/19 at 17:30; Stop 01/29/19 at 17:13; Status DC Trazodone HCl (Desyrel) 50 mg PRN QHS PRN PO INSOMNIA, MAY REPEAT X1 Last administered on 02/16/19 20:27; Start 01/27/19 at 17:30 Mirtazapine (Remeron) 7.5 mg QHS PO Last administered on 01/31/19 19:55; Start 01/28/19 at 21:00; Stop 02/01/19 at 18:50; Status DC Lansoprazole (Prevacid) 30 mg DAILYAC PO Last administered on 02/17/19at 07:58; Start 01/30/19 at 07:30 Tuberculin PPD (Tubersol) 0.1 ml 1X ONCE ID Last administered on 01/30/19at 15: 14; Start 01/30/19 at 14:45; Stop 01/30/19 at 14:52; Status DC Lidocaine (Lidoderm) 1 patch DAILY TD Last administered on 02/17/19at 07:59; Start 01/31/19 at 18:00 Miscellaneous (Lidoderm Patch Removal) 1 ea QHS MC Last administered on 19:59; Start 02/01/19 at 03:00 Olanzapine (ZyPREXA ZYDIS) 5 mg PRN Q2HR PRN PO PSYCHOSIS Last administered on 02/14/19at 06:01; Start 01/31/19 at 20:15 Aspirin (Children'S Aspirin) 81 mg DAILYWBKFT PO Last administered on at 07:36; Start 02/02/19 at 08:00 Paroxetine HCl (Paxil) 30 mg DAILY PO Last administered on 02/04/19at 11:29; Start 02/02/19 at 09:00; Stop 02/04/19 at 12:49; Status DC Mirtazapine (Remeron) 15 mg QHS PO Last administered on 02/17/19 19:58; Start 02/01/19 at 21:00 Clonazepam (KlonoPIN) 0.25 mg 1X ONCE PO Last administered on 02/01/19at 23:48; Start 02/02/19 at 00:00; Stop 02/02/19 at 00:01; Status DC Clonazepam (KlonoPIN) 0.25 mg 1X ONCE PO Last administered on 02/02/19at 01:47; Start 02/02/19 at 02:00; Stop 02/02/19 at 02:01; Status DC Olanzapine (ZyPREXA IM) 5 mg DAILY IM ; Start 02/04/19 at 09:00; Stop 02/04/19 at 09:00; Status DC Lorazepam (Ativan) 0.5 mg DAILY IM ; Start 02/04/19 at 09:00; Stop 02/04/19 at 09: 00; Status DC Lorazepam (Ativan) 0.5 mg DAILY IM Last administered on 02/15/19 09:26; Start 02/03/19 at 11:45 Olanzapine (ZyPREXA IM) 5 mg DAILY IM Last administered on 02/03/19 11:44; Start 02/03/19 at 11:45; Stop 02/05/19 at 18:32; Status DC Paroxetine HCl (Paxil) 20 mg DAILY PO Last administered on 02/08/19at 07:36; Start 02/05/19 at 09:00; Stop 02/08/19 at 08:59; Status DC Paroxetine HCl (Paxil) 10 mg DAILY PO Last administered on 02/10/19at 12:23; Start 02/08/19 at 09:00; Stop 02/11/19 at 08:59; Status DC Paroxetine HCl (Paxil) 5 mg DAILY PO Last administered on 02/13/19at 09:10; Start 02/11/19 at 09:00; Stop 02/14/19 at 08:59; Status DC Tamsulosin HCl (Flomax) 0.4 mg QHS PO Last administered on 02/17/19 19:58; Start 02/05/19 at 21:00 Dorzolamide HCl (Trusopt) 1 drop BID OU Last administered on 02/17/19 08:03; Start 02/05/19 at 21:00 Nystatin (Nystop) 15 edyta STK-MED ONCE TP Last administered on 02/05/19 21:04; Start 02/05/19 at 21:04; Stop 02/05/19 at 21:05; Status DC Nystatin (Nystop) 1 edyta BID TP Last administered on 02/17/19at 21:00; Start 02/05 at 21:30 Divalproex Sodium (Depakote Sprinkles) 125 mg 1500 PO Last administered on 02/17at 15:08; Start 02/17/19 at 15:00 Active Scripts Active Reported Sensi-Care Perineal Cleanser (Aloe Vera/Collagen) 118 Ml Solution 1 Edyta TP BID Paroxetine Hcl 40 Mg Tablet 40 Mg PO DAILY Trazodone Hcl 50 Mg Tablet 12.5 Mg PO QHS Dorzolamide Hcl 10 Ml Drops 1 Drp OD BID Timoptic (Timolol Maleate) 10 Ml Drops 1 Drp OD BID Pilocarpine Hcl 5 Mg Tablet 1 Drop OD TID Latanoprost 2.5 Ml Drops 1 Drop OU QHS Alphagan P (Brimonidine Tartrate) 5 Ml Drops 1 Drop OD BID Pantoprazole Sodium 40 Mg Tablet.dr 40 Mg PO DAILY Cozaar (Losartan Potassium) 50 Mg Tablet 50 Mg PO DAILY Levothyroxine Sodium 75 Mcg Tablet 75 Mcg PO DAILYAC Culturelle (Lactobacillus Rhamnosus Gg) 1 Each Capsule 1 Each PO DAILY Gabapentin (Gabapentin) 100 Mg Capsule 100 Mg PO QHS Gabapentin (Gabapentin) 100 Mg Capsule 100 Mg PO BID Finasteride 5 Mg Tablet 5 Mg PO DAILY Clonidine Hcl 0.1 Mg Tablet 0.1 Mg PO PRN DAILY PRN Lipitor (Atorvastatin Calcium) 40 Mg Tablet 40 Mg PO DAILY Atenolol 100 Mg Tablet 100 Mg PO DAILY Allopurinol 300 Mg Tablet 150 Mg PO DAILY Proair Hfa Inhaler (Albuterol Sulfate) 8.5 Gm Hfa.aer.ad 1 Puff INH PRN Q6HRS PRN Multivitamins (Multivitamin) 1 Each Tablet 1 Each PO DAILY Aspirin 325 Mg Tablet 325 Mg PO DAILY Folic Acid 1 Mg Tablet 1 Mg PO DAILY Clopidogrel (Clopidogrel Bisulfate) 75 Mg Tablet 75 Mg PO DAILY Macuvite Eye Care Tablet (A/C/E/Zinc Ox/Cupric Ox/Lutein) 1 Each Tablet 1 Each PO BID Tylenol (Acetaminophen) 325 Mg Tablet 650 Mg PO PRN QID PRN Clonazepam 0.125 Mg Tab.rapdis 0.125 Mg PO TID Tamsulosin Hcl 0.4 Mg Cap.er.24h 0.4 Mg PO DAILY Hydrochlorothiazide Tablet (Hydrochlorothiazide) 12.5 Mg Tablet 12.5 Mg PO DAILY I have reviewed the current psychotropics carefully including drug interactions. Risk benefit ratio favors no change other than as noted in my dictated progress note. Diagnosis: Problems: (1) Medical clearance for psychiatric admission (2) Anxiety disorder (3) Dementia with behavioral disturbance (4) Dementia, vascular, with delusions (5) Dementia, vascular, with depression (6) Dementia in Alzheimer's disease with delusions (7) Dementia in Alzheimer's disease with depression (8) Impulse control disorder PAOLO THOMAS MD Feb 17, 2019 23:02
--- NOTE | 2019-02-17 23:05 | NUR ---
Behavior Intervention Response and Plan: BIRP Note: Behavior: Assumed Care of patient, patient located in Bathroom at shift change. Patient exhibited the following behavior Calm, Interactive, Able to Focus on Task. Brief assessment on rounds of vital signs, medication needs, lab studies, and pain. Treatment plan problems . Intervention: Patient assessed and the following interventions initiated safety checks 15 Minute Checks Head to toe Assessment , Cognitive Assessment , Medications. Response: After interactions and interventions patient responded in the following manner, Appropriate , Compliant ,Cooperative. Continue to assess behaviors and condition will continue to monitor throughout the shift as needed. Patient educated on ADL's, and hand hygiene. 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 Continue to assess patient for changes in above assessment. Monitor for medication needs, pain, and safety concerns. Hourly rounding performed to ensure safe environment.
[2019-02-18 06:20] VITALS: BP 98/70
[2019-02-18] MEDS: ALLOPURINOL 100 MG TABLET. PO SCH (06:22)
[2019-02-18] MEDS: LEVOTHYROXINE 75 MCG TABLET PO SCH (06:22)
[2019-02-18] MEDS: CLOPIDOGREL BISULFATE 75 MG TABLET PO SCH (06:23)
[2019-02-18] MEDS: MULTIVITAMIN I-VITE TABLET. PO SCH ×2 (06:23→19:53)
[2019-02-18] MEDS: ACETAMINOPHEN 325 MG TABLET PO PRN (06:23)
[2019-02-18] MEDS: ASPIRIN 81 MG TAB.CHEW PO SCH (06:23)
[2019-02-18] MEDS: LANSOPRAZOLE 30 MG TAB.RAP.DR PO SCH (06:25)
[2019-02-18] MEDS: DORZOLAMIDE 2% OPHTH SOLUTION 10ML BOTTLE. OU SCH ×2 (09:00→21:00)
[2019-02-18] MEDS: ATENOLOL 50 MG TABLET PO SCH (09:00)
[2019-02-18] MEDS: BRIMONIDINE 0.2% OPHTH SOLUTION 5ML BOTTLE. OU SCH ×2 (09:00→21:00)
[2019-02-18] MEDS: NYSTATIN TOPICAL POWDER 15GM BOTTLE. TP SCH ×2 (09:00→21:00)
[2019-02-18] MEDS: PILOCARPINE 1% OPHTH SOLUTION 15ML BOTTLE. OU SCH ×3 (09:00→21:00)
[2019-02-18] MEDS: TIMOLOL 0.5% OPHTH SOLUTION 5ML BOTTLE. OD SCH ×2 (09:00→21:00)
[2019-02-18] MEDS: LIDOCAINE (700MG/PATCH) PATCH. TD SCH (09:45)
[2019-02-18] MEDS: clonazePAM 0.5 MG TABLET PO SCH ×3 (09:45→19:55)
--- NOTE | 2019-02-18 10:19 | NUR ---
RADHA spoke with zeke Garcia, at [facility] and provided update. RADHA will update Radha again on 02/19/19 after team meeting. Call placed to [place], son/POA, and message left to inquire about his involvement in team meeting tomorrow. Awaiting return phone call.
--- NOTE | 2019-02-18 11:03 | NUR ---
Nursing Note Attempted to call family to discuss wound care options. Voicemail is full not taking messages.
[2019-02-18] MEDS: DIVALPROEX 125 MG CAP.SPRINK PO SCH (14:12)
--- NOTE | 2019-02-18 14:26 | RAD ---
Examination: CT HEAD WO CONTRAST History: LARGE HEMATOMA ON LEFT BACK PORTION OF HEAD. HIT HEAD FROM FALL., Pain Comparison/Correlation: 01/21/2019 CT head without contrast Findings: Axial images of the head routine without contrast. Atrophy and chronic ischemic changes white matter are notable. No intracranial hemorrhage, then shift, or mass effect. Cavernous carotid calcifications are notable. Subcutaneous edema of the scalp at the posterior left parietal region is present. Chronic left ethmoid sinusitis. Impression: No intracranial hemorrhage. Atrophy and chronic ischemic change. PQRS Compliance Statement: One or more of the following individualized dose reduction techniques were utilized for this examination: 1. Automated exposure control 2. Adjustment of the mA and/or kV according to patient size 3. Use of iterative reconstruction technique Electronically signed by: Shamar Singh MD (02/18/2019 2:23 PM) [id number]
[2019-02-18 16:44] VITALS: BP 100/66
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
[2019-02-18] MEDS: ATORVASTATIN CALCIUM 20 MG TABLET PO SCH (19:53)
[2019-02-18] MEDS: TAMSULOSIN 0.4 MG CAP.ER.24H. PO SCH (19:53)
[2019-02-18] MEDS: MIRTAZAPINE 15 MG TABLET PO SCH (19:53)
[2019-02-18] MEDS: PATCH REMOVAL. MC SCH (21:00)
[2019-02-18] MEDS: LATANOPROST 0.005% OPHTH SOLUTION 2.5ML BOTTLE. OU SCH (21:00)
--- NOTE | 2019-02-18 22:55 | PDOC ---
Exam Note: Scott Note: Please also refer to the separate dictated note~for this date of service dictated separately.~Patient seen individually. Discussed the patient with Nursing staff reviewed the chart.~Reviewed interim history and current functioning. Reviewed vital signs,~Labs/ Radiology~and current medications noted below. Continue current treatment with the changes noted in the dictated addendum note Assessment: Vital Signs: Vital Signs Date Time Temp Pulse Resp B/P (MAP) Pulse Ox O2 Delivery O2 Flow Rate FiO2 02/18/19 16:44 98.6 88 19 100/66 (77) 97 02/17/19 16:32 Room Air I&O Intake and Output 02/18/19 07:00 Intake Total 840 ml Balance 840 ml Intake Oral 840 ml # Bowel Movements 5 Current Medications: Meds: Current Medications Sodium Chloride 1,000 ml @ 1,000 mls/hr 1X ONCE IV Last administered on 17:31; Start 01/26/19 at 17:30; Stop 01/26/19 at 18:29; Status DC Lorazepam (Ativan) 1 mg 1X ONCE IV Last administered on 01/26/19at 21:22; Start 01/26/19 at 21:15; Stop 01/26/19 at 21:23; Status DC Lorazepam (Ativan) 1 mg 1X ONCE IV Last administered on 01/26/19at 22:44; Start 01/26/19 at 22:30; Stop 01/26/19 at 22:32; Status DC Acetaminophen (Tylenol) 650 mg PRN Q6HRS PRN PO PAIN / TEMP; Start 01/27/19 at 00:00; Status Cancel Multi-Ingredient Ointment (Analgesic Holstein) 1 edyta PRN QID PRN TP MUSCLE PAIN; Start 01/27/19 at 00:00 Al Hydroxide/Mg Hydroxide (Mylanta Plus Xs) 15 ml PRN AFTMEALHC PRN PO DYSPEPSIA; Start 01/27/19 at 00:00 Magnesium Hydroxide (Milk Of Magnesia) 2,400 mg PRN QHS PRN PO CONSTIPATION Last administered on 02/03/19at 08:05; Start 01/27/19 at 00:00 Clonazepam (KlonoPIN) 0.125 mg TID PO Last administered on 02/18/19at 19:55; Start 01/27/19 at 09:00 Paroxetine HCl (Paxil) 40 mg DAILY PO Last administered on 02/01/19 08:27; Start 01/27/19 at 09:00; Stop 02/01/19 at 18:49; Status DC Trazodone HCl (Desyrel) 12.5 mg QHS PO ; Start 01/27/19 at 21:00; Stop 01/27/19 at 21:00; Status DC Olanzapine (ZyPREXA ZYDIS) 2.5 mg PRN Q2HR PRN PO PSYCHOSIS Last administered on 01/31/19 08:47; Start 01/27/19 at 01:00; Stop 01/31/19 at 20:14; Status DC Acetaminophen (Tylenol) 650 mg PRN QID PRN PO PAIN Last administered on 06:23; Start 01/27/19 at 01:00 Albuterol Sulfate (Ventolin) 1 mg PRN Q6HRS PRN INH SHORTNESS OF BREATH; Start 01/27/19 at 01:00 Aspirin (Hira Aspirin) 325 mg DAILYWBKFT PO Last administered on 02/01/19 08: 27; Start 01/27/19 at 08:00; Stop 02/01/19 at 13:38; Status DC Clonidine HCl (Catapres) 0.1 mg PRN DAILY PRN PO HYPERTENSION, SEE COMMENTS; Start 01/27/19 at 01:00 Clopidogrel Bisulfate (Plavix) 75 mg DAILY PO Last administered on 02/18/19 06 :23; Start 01/27/19 at 09:00 Gabapentin (Neurontin) 100 mg BID94 PO Last administered on 02/05/19at 08:34; Start 01/27/19 at 09:00; Stop 02/05/19 at 16:10; Status DC Gabapentin (Neurontin) 100 mg QHS PO Last administered on 02/04/19 20:17; Start 01/27/19 at 21:00; Stop 02/05/19 at 16:10; Status DC Levothyroxine Sodium (Synthroid) 75 mcg DAILY06 PO Last administered on 06:22; Start 01/27/19 at 06:00 Losartan Potassium (Cozaar) 50 mg DAILY PO Last administered on 01/27/19at 13:26 ; Start 01/27/19 at 09:00; Stop 01/27/19 at 14:32; Status DC Tamsulosin HCl (Flomax) 0.4 mg DAILY PO Last administered on 02/05/19at 08:34; Start 01/27/19 at 09:00; Stop 02/05/19 at 16:10; Status DC Multivitamins/ Minerals (I-Alis) 1 tab BID PO Last administered on 02/18/19at 19 :53; Start 01/27/19 at 09:00 Allopurinol (Zyloprim) 150 mg DAILY PO Last administered on 02/18/19at 06:22; Start 01/27/19 at 09:00 Non-Formulary Medication (Aloe Vera/ Collagen (Sensi-Care Perineal Cleanser)) 1 edyta BID TP ; Start 01/27/19 at 09:00; Stop 01/27/19 at 09:00; Status DC Atenolol (Tenormin) 100 mg DAILY PO Last administered on 02/17/19at 07:37; Start 01/27/19 at 09:00 Atorvastatin Calcium (Lipitor) 40 mg HS PO Last administered on 02/18/19at 19:53 ; Start 01/27/19 at 21:00 Brimonidine Tartrate (Alphagan) 1 drop BID OD ; Start 01/27/19 at 09:00; Stop at 12:36; Status DC Dorzolamide HCl (Trusopt) 1 drop BID OD ; Start 01/27/19 at 09:00; Stop at 12:39; Status DC Finasteride (Proscar) 5 mg DAILY PO Last administered on 02/05/19at 08:34; Start 01/27/19 at 09:00; Stop 02/05/19 at 16:10; Status DC Folic Acid (Folic Acid) 1 mg DAILY PO Last administered on 02/01/19 08:26; Start 01/27/19 at 09:00; Stop 02/01/19 at 13:38; Status DC Hydrochlorothiazide (Microzide) 12.5 mg DAILY PO Last administered on at 13:27; Start 01/27/19 at 09:00; Stop 01/27/19 at 14:32; Status DC Lactobacillus Rhamnosus (Culturelle) 1 cap DAILY PO Last administered on 08:34; Start 01/27/19 at 09:00; Stop 02/05/19 at 16:10; Status DC Latanoprost (Xalatan) 1 drop QHS OU Last administered on 02/16/19 20:38; Start 01/27/19 at 21:00 Multivitamins/ Calcium (Thera-M Plus) 1 tab DAILY PO Last administered on 08:26; Start 01/27/19 at 09:00; Stop 02/01/19 at 13:38; Status DC Pantoprazole Sodium (Protonix) 40 mg DAILYAC PO Last administered on 01/28/19 10:03; Start 01/27/19 at 07:30; Stop 01/29/19 at 11:24; Status DC Pilocarpine HCl (Pilocar) 1 drop TID OD ; Start 01/27/19 at 09:00; Stop at 12:38; Status DC Timolol Maleate (Timoptic 0.5% Ophth) 1 drop BID OD Last administered on 08:02; Start 01/27/19 at 07:15 Brimonidine Tartrate (Alphagan) 1 drop BID OU Last administered on 02/17/19 08 :02; Start 01/27/19 at 12:36 Pilocarpine HCl (Pilocar) 1 drop TID OU Last administered on 02/17/19 08:03; Start 01/27/19 at 12:38 Dorzolamide HCl (Trusopt) 1 drop TID OU Last administered on 02/05/19 14:00; Start 01/27/19 at 14:00; Stop 02/05/19 at 16:11; Status DC Olanzapine (ZyPREXA ZYDIS) 2.5 mg PRN Q2HR PRN PO PSYCHOSIS; Start 01/27/19 at 17:30; Stop 01/29/19 at 17:13; Status DC Trazodone HCl (Desyrel) 50 mg PRN QHS PRN PO INSOMNIA, MAY REPEAT X1 Last administered on 02/16/19 20:27; Start 01/27/19 at 17:30 Mirtazapine (Remeron) 7.5 mg QHS PO Last administered on 01/31/19 19:55; Start 01/28/19 at 21:00; Stop 02/01/19 at 18:50; Status DC Lansoprazole (Prevacid) 30 mg DAILYAC PO Last administered on 02/18/19 06:25; Start 01/30/19 at 07:30 Tuberculin PPD (Tubersol) 0.1 ml 1X ONCE ID Last administered on 01/30/19 15: 14; Start 01/30/19 at 14:45; Stop 01/30/19 at 14:52; Status DC Lidocaine (Lidoderm) 1 patch DAILY TD Last administered on 02/18/19 09:45; Start 01/31/19 at 18:00 Miscellaneous (Lidoderm Patch Removal) 1 ea QHS MC Last administered on 21:00; Start 02/01/19 at 03:00 Olanzapine (ZyPREXA ZYDIS) 5 mg PRN Q2HR PRN PO PSYCHOSIS Last administered on 02/18/19 14:12; Start 01/31/19 at 20:15 Aspirin (Children'S Aspirin) 81 mg DAILYWBKFT PO Last administered on 06:23; Start 02/02/19 at 08:00 Paroxetine HCl (Paxil) 30 mg DAILY PO Last administered on 02/04/19 11:29; Start 02/02/19 at 09:00; Stop 02/04/19 at 12:49; Status DC Mirtazapine (Remeron) 15 mg QHS PO Last administered on 02/18/19 19:53; Start 02/01/19 at 21:00 Clonazepam (KlonoPIN) 0.25 mg 1X ONCE PO Last administered on 02/01/19 23:48; Start 02/02/19 at 00:00; Stop 02/02/19 at 00:01; Status DC Clonazepam (KlonoPIN) 0.25 mg 1X ONCE PO Last administered on 02/02/19at 01:47; Start 02/02/19 at 02:00; Stop 02/02/19 at 02:01; Status DC Olanzapine (ZyPREXA IM) 5 mg DAILY IM ; Start 02/04/19 at 09:00; Stop 02/04/19 at 09:00; Status DC Lorazepam (Ativan) 0.5 mg DAILY IM ; Start 02/04/19 at 09:00; Stop 02/04/19 at 09: 00; Status DC Lorazepam (Ativan) 0.5 mg DAILY IM Last administered on 02/18/19at 15:40; Start 02/03/19 at 11:45 Olanzapine (ZyPREXA IM) 5 mg DAILY IM Last administered on 02/03/19 11:44; Start 02/03/19 at 11:45; Stop 02/05/19 at 18:32; Status DC Paroxetine HCl (Paxil) 20 mg DAILY PO Last administered on 02/08/19 07:36; Start 02/05/19 at 09:00; Stop 02/08/19 at 08:59; Status DC Paroxetine HCl (Paxil) 10 mg DAILY PO Last administered on 02/10/19 12:23; Start 02/08/19 at 09:00; Stop 02/11/19 at 08:59; Status DC Paroxetine HCl (Paxil) 5 mg DAILY PO Last administered on 02/13/19 09:10; Start 02/11/19 at 09:00; Stop 02/14/19 at 08:59; Status DC Tamsulosin HCl (Flomax) 0.4 mg QHS PO Last administered on 02/18/19 19:53; Start 02/05/19 at 21:00 Dorzolamide HCl (Trusopt) 1 drop BID OU Last administered on 02/17/19 08:03; Start 02/05/19 at 21:00 Nystatin (Nystop) 15 edyta STK-MED ONCE TP Last administered on 02/05/19 21:04; Start 02/05/19 at 21:04; Stop 02/05/19 at 21:05; Status DC Nystatin (Nystop) 1 edyta BID TP Last administered on 02/17/19 21:00; Start 02/05 at 21:30 Divalproex Sodium (Depakote Sprinkles) 125 mg 1500 PO Last administered on 02/18at 14:12; Start 02/17/19 at 15:00 Active Scripts Active Reported Sensi-Care Perineal Cleanser (Aloe Vera/Collagen) 118 Ml Solution 1 Edyta TP BID Paroxetine Hcl 40 Mg Tablet 40 Mg PO DAILY Trazodone Hcl 50 Mg Tablet 12.5 Mg PO QHS Dorzolamide Hcl 10 Ml Drops 1 Drp OD BID Timoptic (Timolol Maleate) 10 Ml Drops 1 Drp OD BID Pilocarpine Hcl 5 Mg Tablet 1 Drop OD TID Latanoprost 2.5 Ml Drops 1 Drop OU QHS Alphagan P (Brimonidine Tartrate) 5 Ml Drops 1 Drop OD BID Pantoprazole Sodium 40 Mg Tablet.dr 40 Mg PO DAILY Cozaar (Losartan Potassium) 50 Mg Tablet 50 Mg PO DAILY Levothyroxine Sodium 75 Mcg Tablet 75 Mcg PO DAILYAC Culturelle (Lactobacillus Rhamnosus Gg) 1 Each Capsule 1 Each PO DAILY Gabapentin (Gabapentin) 100 Mg Capsule 100 Mg PO QHS Gabapentin (Gabapentin) 100 Mg Capsule 100 Mg PO BID Finasteride 5 Mg Tablet 5 Mg PO DAILY Clonidine Hcl 0.1 Mg Tablet 0.1 Mg PO PRN DAILY PRN Lipitor (Atorvastatin Calcium) 40 Mg Tablet 40 Mg PO DAILY Atenolol 100 Mg Tablet 100 Mg PO DAILY Allopurinol 300 Mg Tablet 150 Mg PO DAILY Proair Hfa Inhaler (Albuterol Sulfate) 8.5 Gm Hfa.aer.ad 1 Puff INH PRN Q6HRS PRN Multivitamins (Multivitamin) 1 Each Tablet 1 Each PO DAILY Aspirin 325 Mg Tablet 325 Mg PO DAILY Folic Acid 1 Mg Tablet 1 Mg PO DAILY Clopidogrel (Clopidogrel Bisulfate) 75 Mg Tablet 75 Mg PO DAILY Macuvite Eye Care Tablet (A/C/E/Zinc Ox/Cupric Ox/Lutein) 1 Each Tablet 1 Each PO BID Tylenol (Acetaminophen) 325 Mg Tablet 650 Mg PO PRN QID PRN Clonazepam 0.125 Mg Tab.rapdis 0.125 Mg PO TID Tamsulosin Hcl 0.4 Mg Cap.er.24h 0.4 Mg PO DAILY Hydrochlorothiazide Tablet (Hydrochlorothiazide) 12.5 Mg Tablet 12.5 Mg PO DAILY I have reviewed the current psychotropics carefully including drug interactions. Risk benefit ratio favors no change other than as noted in my dictated progress note. Diagnosis: Problems: (1) Medical clearance for psychiatric admission (2) Anxiety disorder (3) Dementia with behavioral disturbance (4) Dementia, vascular, with delusions (5) Dementia, vascular, with depression (6) Dementia in Alzheimer's disease with delusions (7) Dementia in Alzheimer's disease with depression (8) Impulse control disorder PAOLO THOMAS MD Feb 18, 2019 22:55
--- NOTE | 2019-02-18 23:38 | PN ---
DATE: 02/17/2019 PSYCHIATRIC PROGRESS NOTE This late entry 02/17/2019, covers elements not covered in my initial note. SUBJECTIVE: I met with the patient in the evening. The patient slept 7-1/4 hours previous night. He has not received any intramuscular Ativan on 02/17/2019, slept until 10:00 a.m. He remains confused, but pleasant as I met with him. REVIEW OF SYSTEMS: Ambulation impaired, in wheelchair. No CV, , pulmonary, eyes, ENT system symptoms on review. MENTAL STATUS EXAMINATION: Oriented to himself. Insight, judgment, recent and remote memory, attention, concentration, fund of knowledge poor, consistent with his diagnosis mentioned in my initial note. PLAN: No change from initial note. MAN Modesta THOMAS MD DR: [email or web address] JOB#: [id number] / [id number]
--- NOTE | 2019-02-19 00:38 | NUR ---
Nursing Note The patient was located in the day room for his assessment and medication pass. The patient was compliant with most medications but refused his eye medications. The patient was able to take his medications whole. The patient is currently sleeping in his room.
[2019-02-19 06:19] VITALS: BP 134/60
[2019-02-19] MEDS: ASPIRIN 81 MG TAB.CHEW PO SCH (08:34)
[2019-02-19] MEDS: MULTIVITAMIN I-VITE TABLET. PO SCH ×2 (08:34→19:33)
[2019-02-19] MEDS: CLOPIDOGREL BISULFATE 75 MG TABLET PO SCH (08:34)
[2019-02-19] MEDS: LEVOTHYROXINE 75 MCG TABLET PO SCH (08:35)
[2019-02-19] MEDS: NYSTATIN TOPICAL POWDER 15GM BOTTLE. TP SCH ×2 (08:35→19:36)
[2019-02-19] MEDS: ALLOPURINOL 100 MG TABLET. PO SCH (08:35)
[2019-02-19] MEDS: LIDOCAINE (700MG/PATCH) PATCH. TD SCH (08:35)
[2019-02-19] MEDS: ATENOLOL 50 MG TABLET PO SCH (08:35)
[2019-02-19] MEDS: clonazePAM 0.5 MG TABLET PO SCH ×3 (08:41→19:35)
[2019-02-19] MEDS: LANSOPRAZOLE 30 MG TAB.RAP.DR PO SCH (08:41)
[2019-02-19] MEDS: TIMOLOL 0.5% OPHTH SOLUTION 5ML BOTTLE. OD SCH ×2 (08:43→19:36)
[2019-02-19] MEDS: DORZOLAMIDE 2% OPHTH SOLUTION 10ML BOTTLE. OU SCH ×2 (08:43→19:36)
[2019-02-19] MEDS: PILOCARPINE 1% OPHTH SOLUTION 15ML BOTTLE. OU SCH ×3 (08:43→19:36)
[2019-02-19] MEDS: BRIMONIDINE 0.2% OPHTH SOLUTION 5ML BOTTLE. OU SCH ×2 (08:43→19:37)
--- NOTE | 2019-02-19 09:21 | NUR ---
WEEKLY ACTIVITY THERAPY NOTE Date of Admission: 01/27/2019 Date of AT Assessment: 01/30/2019 Goal aimed: To increase time management and recreation education. Initial goal: Pt. will participate in at least three (Activity Therapy) groups or individual activities per week. Weekly progress towards goal: did not achieve Group participation level: zero Behaviors observed: angry, harsh comments to questions and reminders about using his walker and the restroom, secured hallway often, often alone, Plan: Change goal to: Pt. will participate in at least three one on one Activity Therapy sessions before discharge.
--- NOTE | 2019-02-19 10:01 | NUR ---
Behavior Intervention Response and Plan: BIRP Note: Behavior: Assumed Care of patient, patient located in Patient Room at shift change. Patient exhibited the following behavior Calm, Able to Focus on Task, Compliant. Brief assessment on rounds of vital signs, medication needs, lab studies, and pain. Treatment plan problems . Intervention: Patient assessed and the following interventions initiated safety checks 15 Minute Checks Head to toe Assessment , Cognitive Assessment , Medications. Response: After interactions and interventions patient responded in the following manner, Withdrawn , Sleeping ,Cooperative. Continue to assess behaviors and condition will continue to monitor throughout the shift as needed. Patient educated on ADL's, and hand hygiene. 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 Continue to assess patient for changes in above assessment. Monitor for medication needs, pain, and safety concerns. Hourly rounding performed to ensure safe environment.
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
[2019-02-19 11:34] LABS: BASO % 0 % (0-3); EOS # 0.3 x10^3/uL (0.0-0.7); EOS % 3 % (0-3); HEMATOCRIT 28.7 % (39.0-53.0); HEMOGLOBIN 9.5 g/dL (13.0-17.5); LYMPH # 1.3 x10^3/uL (1.0-4.8); LYMPH % 16 % (24-48); MEAN CORPUSCULAR HEMOGLOBIN 34 pg (25-35); MEAN CORPUSCULAR HGB CONC 33 g/dL (31-37); MEAN CORPUSCULAR VOLUME 101 fL (79-100); MONO % 12 % (0-9); NEUT # 5.6 x10^3uL (1.8-7.7); NEUT % 69 % (31-73); PLATELET COUNT 194 x10^3/uL (140-400); RED BLOOD COUNT 2.84 x10^6/uL (4.30-5.70); RED CELL DISTRIBUTION WIDTH 16.7 % (11.5-14.5); WHITE BLOOD COUNT 8.2 x10^3/uL (4.0-11.0)
[2019-02-19 11:40] LABS: ALBUMIN 1.8 g/dL (3.4-5.0); ALBUMIN/GLOBULIN RATIO 0.6 (1.0-1.7); CREATININE 1.2 mg/dL (0.7-1.3); TOTAL PROTEIN 4.7 g/dL (6.4-8.2)
[2019-02-19 11:41] LABS: POTASSIUM 3.3 mmol/L (3.5-5.1); TOTAL BILIRUBIN 0.4 mg/dL (0.2-1.0)
[2019-02-19] MEDS: DIVALPROEX 125 MG CAP.SPRINK PO SCH (14:50)
[2019-02-19 16:08] VITALS: BP 136/68
[2019-02-19] MEDS: traZODone 50 MG TABLET. PO PRN (19:33)
[2019-02-19] MEDS: ATORVASTATIN CALCIUM 20 MG TABLET PO SCH (19:33)
[2019-02-19] MEDS: MIRTAZAPINE 15 MG TABLET PO SCH (19:33)
[2019-02-19] MEDS: TAMSULOSIN 0.4 MG CAP.ER.24H. PO SCH (19:34)
[2019-02-19] MEDS: LATANOPROST 0.005% OPHTH SOLUTION 2.5ML BOTTLE. OU SCH (19:36)
[2019-02-19] MEDS: PATCH REMOVAL. MC SCH (19:37)
--- NOTE | 2019-02-19 22:39 | PDOC ---
Exam Note: Scott Note: Please also refer to the separate dictated note~for this date of service dictated separately.~Patient seen individually. Discussed the patient with Nursing staff reviewed the chart.~Reviewed interim history and current functioning. Reviewed vital signs,~Labs/ Radiology~and current medications noted below. Continue current treatment with the changes noted in the dictated addendum note Assessment: Vital Signs: Vital Signs Date Time Temp Pulse Resp B/P (MAP) Pulse Ox O2 Delivery O2 Flow Rate FiO2 02/19/19 16:08 98.2 66 19 136/68 (90) 95 Room Air I&O Intake and Output 02/19/19 07:00 Intake Total 840 ml Balance 840 ml Intake Oral 840 ml # Bowel Movements 5 Labs: Laboratory Tests Test 02/19/19 11:21 02/19/19 17:06 White Blood Count 8.2 x10^3/uL (4.0-11.0) Red Blood Count 2.84 x10^6/uL (4.30-5.70) L Hemoglobin 9.5 g/dL (13.0-17.5) L Hematocrit 28.7 % (39.0-53.0) L Mean Corpuscular Volume 101 fL (79-100) H Mean Corpuscular Hemoglobin 34 pg (25-35) Mean Corpuscular Hemoglobin Concent 33 g/dL (31-37) Red Cell Distribution Width 16.7 % (11.5-14.5) H Platelet Count 194 x10^3/uL (140-400) Neutrophils (%) (Auto) 69 % (31-73) Lymphocytes (%) (Auto) 16 % (24-48) L Monocytes (%) (Auto) 12 % (0-9) H Eosinophils (%) (Auto) 3 % (0-3) Basophils (%) (Auto) 0 % (0-3) Neutrophils # (Auto) 5.6 x10^3uL (1.8-7.7) Lymphocytes # (Auto) 1.3 x10^3/uL (1.0-4.8) Monocytes # (Auto) 1.0 x10^3/uL (0.0-1.1) Eosinophils # (Auto) 0.3 x10^3/uL (0.0-0.7) Basophils # (Auto) 0.0 x10^3/uL (0.0-0.2) Sodium Level 144 mmol/L (136-145) Potassium Level 3.3 mmol/L (3.5-5.1) L Chloride Level 108 mmol/L (98-107) H Carbon Dioxide Level 28 mmol/L (21-32) Anion Gap 8 (6-14) Blood Urea Nitrogen 11 mg/dL (8-26) Creatinine 1.2 mg/dL (0.7-1.3) Estimated GFR (Cockcroft-Gault) 57.0 BUN/Creatinine Ratio 9 (6-20) Glucose Level 100 mg/dL (70-99) H Lactic Acid Level 0.8 mmol/L (0.4-2.0) Calcium Level 8.0 mg/dL (8.5-10.1) L Total Bilirubin 0.4 mg/dL (0.2-1.0) Aspartate Amino Transferase (AST) 38 U/L (15-37) H Alanine Aminotransferase (ALT) 31 U/L (16-63) Alkaline Phosphatase 112 U/L (46-116) Total Protein 4.7 g/dL (6.4-8.2) L Albumin 1.8 g/dL (3.4-5.0) L Albumin/Globulin Ratio 0.6 (1.0-1.7) L Glucose (Fingerstick) 105 mg/dL (70-99) H Current Medications: Meds: Current Medications Sodium Chloride 1,000 ml @ 1,000 mls/hr 1X ONCE IV Last administered on at 17:31; Start 01/26/19 at 17:30; Stop 01/26/19 at 18:29; Status DC Lorazepam (Ativan) 1 mg 1X ONCE IV Last administered on 01/26/19at 21:22; Start 01/26/19 at 21:15; Stop 01/26/19 at 21:23; Status DC Lorazepam (Ativan) 1 mg 1X ONCE IV Last administered on 01/26/19at 22:44; Start 01/26/19 at 22:30; Stop 01/26/19 at 22:32; Status DC Acetaminophen (Tylenol) 650 mg PRN Q6HRS PRN PO PAIN / TEMP; Start 01/27/19 at 00:00; Status Cancel Multi-Ingredient Ointment (Analgesic [place]) 1 edyta PRN QID PRN TP MUSCLE PAIN; Start 01/27/19 at 00:00 Al Hydroxide/Mg Hydroxide (Mylanta Plus Xs) 15 ml PRN AFTMEALHC PRN PO DYSPEPSIA; Start 01/27/19 at 00:00 Magnesium Hydroxide (Milk Of Magnesia) 2,400 mg PRN QHS PRN PO CONSTIPATION Last administered on 02/03/19 08:05; Start 01/27/19 at 00:00 Clonazepam (KlonoPIN) 0.125 mg TID PO Last administered on 02/19/19at 08:41; Start 01/27/19 at 09:00; Stop 02/19/19 at 12:07; Status DC Paroxetine HCl (Paxil) 40 mg DAILY PO Last administered on 02/01/19 08:27; Start 01/27/19 at 09:00; Stop 02/01/19 at 18:49; Status DC Trazodone HCl (Desyrel) 12.5 mg QHS PO ; Start 01/27/19 at 21:00; Stop 01/27/19 at 21:00; Status DC Olanzapine (ZyPREXA ZYDIS) 2.5 mg PRN Q2HR PRN PO PSYCHOSIS Last administered on 01/31/19at 08:47; Start 01/27/19 at 01:00; Stop 01/31/19 at 20:14; Status DC Acetaminophen (Tylenol) 650 mg PRN QID PRN PO PAIN Last administered on at 06:23; Start 01/27/19 at 01:00 Albuterol Sulfate (Ventolin) 1 mg PRN Q6HRS PRN INH SHORTNESS OF BREATH; Start 01/27/19 at 01:00 Aspirin (Hira Aspirin) 325 mg DAILYWBKFT PO Last administered on 02/01/19 08: 27; Start 01/27/19 at 08:00; Stop 02/01/19 at 13:38; Status DC Clonidine HCl (Catapres) 0.1 mg PRN DAILY PRN PO HYPERTENSION, SEE COMMENTS; Start 01/27/19 at 01:00 Clopidogrel Bisulfate (Plavix) 75 mg DAILY PO Last administered on 02/19/19at 08 :34; Start 01/27/19 at 09:00 Gabapentin (Neurontin) 100 mg BID94 PO Last administered on 02/05/19 08:34; Start 01/27/19 at 09:00; Stop 02/05/19 at 16:10; Status DC Gabapentin (Neurontin) 100 mg QHS PO Last administered on 02/04/19at 20:17; Start 01/27/19 at 21:00; Stop 02/05/19 at 16:10; Status DC Levothyroxine Sodium (Synthroid) 75 mcg DAILY06 PO Last administered on 08:35; Start 01/27/19 at 06:00 Losartan Potassium (Cozaar) 50 mg DAILY PO Last administered on 01/27/19at 13:26 ; Start 01/27/19 at 09:00; Stop 01/27/19 at 14:32; Status DC Tamsulosin HCl (Flomax) 0.4 mg DAILY PO Last administered on 02/05/19 08:34; Start 01/27/19 at 09:00; Stop 02/05/19 at 16:10; Status DC Multivitamins/ Minerals (I-Alis) 1 tab BID PO Last administered on 02/19/19 19 :33; Start 01/27/19 at 09:00 Allopurinol (Zyloprim) 150 mg DAILY PO Last administered on 02/19/19 08:35; Start 01/27/19 at 09:00 Non-Formulary Medication (Aloe Vera/ Collagen (Sensi-Care Perineal Cleanser)) 1 edyta BID TP ; Start 01/27/19 at 09:00; Stop 01/27/19 at 09:00; Status DC Atenolol (Tenormin) 100 mg DAILY PO Last administered on 02/19/19at 08:35; Start 01/27/19 at 09:00 Atorvastatin Calcium (Lipitor) 40 mg HS PO Last administered on 02/19/19 19:33 ; Start 01/27/19 at 21:00 Brimonidine Tartrate (Alphagan) 1 drop BID OD ; Start 01/27/19 at 09:00; Stop at 12:36; Status DC Dorzolamide HCl (Trusopt) 1 drop BID OD ; Start 01/27/19 at 09:00; Stop at 12:39; Status DC Finasteride (Proscar) 5 mg DAILY PO Last administered on 02/05/19 08:34; Start 01/27/19 at 09:00; Stop 02/05/19 at 16:10; Status DC Folic Acid (Folic Acid) 1 mg DAILY PO Last administered on 02/01/19 08:26; Start 01/27/19 at 09:00; Stop 02/01/19 at 13:38; Status DC Hydrochlorothiazide (Microzide) 12.5 mg DAILY PO Last administered on 13:27; Start 01/27/19 at 09:00; Stop 01/27/19 at 14:32; Status DC Lactobacillus Rhamnosus (Culturelle) 1 cap DAILY PO Last administered on 08:34; Start 01/27/19 at 09:00; Stop 02/05/19 at 16:10; Status DC Latanoprost (Xalatan) 1 drop QHS OU Last administered on 02/19/19 19:36; Start 01/27/19 at 21:00 Multivitamins/ Calcium (Thera-M Plus) 1 tab DAILY PO Last administered on 08:26; Start 01/27/19 at 09:00; Stop 02/01/19 at 13:38; Status DC Pantoprazole Sodium (Protonix) 40 mg DAILYAC PO Last administered on 01/28/19 10:03; Start 01/27/19 at 07:30; Stop 01/29/19 at 11:24; Status DC Pilocarpine HCl (Pilocar) 1 drop TID OD ; Start 01/27/19 at 09:00; Stop at 12:38; Status DC Timolol Maleate (Timoptic 0.5% Ophth) 1 drop BID OD Last administered on 19:36; Start 01/27/19 at 07:15 Brimonidine Tartrate (Alphagan) 1 drop BID OU Last administered on 02/19/19 19 :37; Start 01/27/19 at 12:36 Pilocarpine HCl (Pilocar) 1 drop TID OU Last administered on 02/19/19 19:36; Start 01/27/19 at 12:38 Dorzolamide HCl (Trusopt) 1 drop TID OU Last administered on 02/05/19 14:00; Start 01/27/19 at 14:00; Stop 02/05/19 at 16:11; Status DC Olanzapine (ZyPREXA ZYDIS) 2.5 mg PRN Q2HR PRN PO PSYCHOSIS; Start 01/27/19 at 17:30; Stop 01/29/19 at 17:13; Status DC Trazodone HCl (Desyrel) 50 mg PRN QHS PRN PO INSOMNIA, MAY REPEAT X1 Last administered on 02/19/19 19:33; Start 01/27/19 at 17:30 Mirtazapine (Remeron) 7.5 mg QHS PO Last administered on 01/31/19 19:55; Start 01/28/19 at 21:00; Stop 02/01/19 at 18:50; Status DC Lansoprazole (Prevacid) 30 mg DAILYAC PO Last administered on 02/19/19 08:41; Start 01/30/19 at 07:30 Tuberculin PPD (Tubersol) 0.1 ml 1X ONCE ID Last administered on 01/30/19 15: 14; Start 01/30/19 at 14:45; Stop 01/30/19 at 14:52; Status DC Lidocaine (Lidoderm) 1 patch DAILY TD Last administered on 02/19/19 08:35; Start 01/31/19 at 18:00 Miscellaneous (Lidoderm Patch Removal) 1 ea QHS MC Last administered on 19:37; Start 02/01/19 at 03:00 Olanzapine (ZyPREXA ZYDIS) 5 mg PRN Q2HR PRN PO PSYCHOSIS Last administered on 02/18/19 14:12; Start 01/31/19 at 20:15 Aspirin (Children'S Aspirin) 81 mg DAILYWBKFT PO Last administered on 08:34; Start 02/02/19 at 08:00 Paroxetine HCl (Paxil) 30 mg DAILY PO Last administered on 02/04/19 11:29; Start 02/02/19 at 09:00; Stop 02/04/19 at 12:49; Status DC Mirtazapine (Remeron) 15 mg QHS PO Last administered on 02/19/19 19:33; Start 02/01/19 at 21:00 Clonazepam (KlonoPIN) 0.25 mg 1X ONCE PO Last administered on 02/01/19at 23:48; Start 02/02/19 at 00:00; Stop 02/02/19 at 00:01; Status DC Clonazepam (KlonoPIN) 0.25 mg 1X ONCE PO Last administered on 02/02/19at 01:47; Start 02/02/19 at 02:00; Stop 02/02/19 at 02:01; Status DC Olanzapine (ZyPREXA IM) 5 mg DAILY IM ; Start 02/04/19 at 09:00; Stop 02/04/19 at 09:00; Status DC Lorazepam (Ativan) 0.5 mg DAILY IM ; Start 02/04/19 at 09:00; Stop 02/04/19 at 09: 00; Status DC Lorazepam (Ativan) 0.5 mg DAILY IM Last administered on 02/19/19at 11:54; Start 02/03/19 at 11:45 Olanzapine (ZyPREXA IM) 5 mg DAILY IM Last administered on 02/03/19at 11:44; Start 02/03/19 at 11:45; Stop 02/05/19 at 18:32; Status DC Paroxetine HCl (Paxil) 20 mg DAILY PO Last administered on 02/08/19 07:36; Start 02/05/19 at 09:00; Stop 02/08/19 at 08:59; Status DC Paroxetine HCl (Paxil) 10 mg DAILY PO Last administered on 02/10/19at 12:23; Start 02/08/19 at 09:00; Stop 02/11/19 at 08:59; Status DC Paroxetine HCl (Paxil) 5 mg DAILY PO Last administered on 02/13/19at 09:10; Start 02/11/19 at 09:00; Stop 02/14/19 at 08:59; Status DC Tamsulosin HCl (Flomax) 0.4 mg QHS PO Last administered on 02/19/19 19:34; Start 02/05/19 at 21:00 Dorzolamide HCl (Trusopt) 1 drop BID OU Last administered on 02/19/19at 19:36; Start 02/05/19 at 21:00 Nystatin (Nystop) 15 edyta STK-MED ONCE TP Last administered on 02/05/19at 21:04; Start 02/05/19 at 21:04; Stop 02/05/19 at 21:05; Status DC Nystatin (Nystop) 1 edyta BID TP Last administered on 02/19/19at 19:36; Start 02/05 at 21:30 Divalproex Sodium (Depakote Sprinkles) 125 mg 1500 PO Last administered on 02/19at 14:50; Start 02/17/19 at 15:00 Clonazepam (KlonoPIN) 0.25 mg TID PO Last administered on 02/19/19at 19:35; Start 02/19/19 at 14:00 Active Scripts Active Reported Sensi-Care Perineal Cleanser (Aloe Vera/Collagen) 118 Ml Solution 1 Edyta TP BID Paroxetine Hcl 40 Mg Tablet 40 Mg PO DAILY Trazodone Hcl 50 Mg Tablet 12.5 Mg PO QHS Dorzolamide Hcl 10 Ml Drops 1 Drp OD BID Timoptic (Timolol Maleate) 10 Ml Drops 1 Drp OD BID Pilocarpine Hcl 5 Mg Tablet 1 Drop OD TID Latanoprost 2.5 Ml Drops 1 Drop OU QHS Alphagan P (Brimonidine Tartrate) 5 Ml Drops 1 Drop OD BID Pantoprazole Sodium 40 Mg Tablet.dr 40 Mg PO DAILY Cozaar (Losartan Potassium) 50 Mg Tablet 50 Mg PO DAILY Levothyroxine Sodium 75 Mcg Tablet 75 Mcg PO DAILYAC Culturelle (Lactobacillus Rhamnosus Gg) 1 Each Capsule 1 Each PO DAILY Gabapentin (Gabapentin) 100 Mg Capsule 100 Mg PO QHS Gabapentin (Gabapentin) 100 Mg Capsule 100 Mg PO BID Finasteride 5 Mg Tablet 5 Mg PO DAILY Clonidine Hcl 0.1 Mg Tablet 0.1 Mg PO PRN DAILY PRN Lipitor (Atorvastatin Calcium) 40 Mg Tablet 40 Mg PO DAILY Atenolol 100 Mg Tablet 100 Mg PO DAILY Allopurinol 300 Mg Tablet 150 Mg PO DAILY Proair Hfa Inhaler (Albuterol Sulfate) 8.5 Gm Hfa.aer.ad 1 Puff INH PRN Q6HRS PRN Multivitamins (Multivitamin) 1 Each Tablet 1 Each PO DAILY Aspirin 325 Mg Tablet 325 Mg PO DAILY Folic Acid 1 Mg Tablet 1 Mg PO DAILY Clopidogrel (Clopidogrel Bisulfate) 75 Mg Tablet 75 Mg PO DAILY Macuvite [facility] [employer] Tablet (A/C/E/Zinc Ox/Cupric Ox/Lutein) 1 Each Tablet 1 Each PO BID Tylenol (Acetaminophen) 325 Mg Tablet 650 Mg PO PRN QID PRN Clonazepam 0.125 Mg Tab.rapdis 0.125 Mg PO TID Tamsulosin Hcl 0.4 Mg Cap.er.24h 0.4 Mg PO DAILY Hydrochlorothiazide Tablet (Hydrochlorothiazide) 12.5 Mg Tablet 12.5 Mg PO DAILY I have reviewed the current psychotropics carefully including drug interactions. Risk benefit ratio favors no change other than as noted in my dictated progress note. Diagnosis: Problems: (1) Medical clearance for psychiatric admission (2) Anxiety disorder (3) Dementia with behavioral disturbance (4) Dementia, vascular, with delusions (5) Dementia, vascular, with depression (6) Dementia in Alzheimer's disease with delusions (7) Dementia in Alzheimer's disease with depression (8) Impulse control disorder PAOLO THOMAS MD Feb 19, 2019 22:39
--- NOTE | 2019-02-19 23:12 | NUR ---
Pt sleeping in his room all evening. Compliant with crushed medications. No behaviors.
[2019-02-20 06:24] VITALS: BP 144/68
[2019-02-20] MEDS: LEVOTHYROXINE 75 MCG TABLET PO SCH (06:34)
[2019-02-20 08:16] LABS: BASO % 0 % (0-3); EOS # 0.4 x10^3/uL (0.0-0.7); EOS % 5 % (0-3); HEMATOCRIT 29.9 % (39.0-53.0); HEMOGLOBIN 9.9 g/dL (13.0-17.5); LYMPH # 1.6 x10^3/uL (1.0-4.8); LYMPH % 20 % (24-48); MEAN CORPUSCULAR HEMOGLOBIN 33 pg (25-35); MEAN CORPUSCULAR HGB CONC 33 g/dL (31-37); MEAN CORPUSCULAR VOLUME 100 fL (79-100); MONO # 0.9 x10^3/uL (0.0-1.1); MONO % 12 % (0-9); NEUT % 63 % (31-73); PLATELET COUNT 195 x10^3/uL (140-400); RED BLOOD COUNT 2.99 x10^6/uL (4.30-5.70); RED CELL DISTRIBUTION WIDTH 16.4 % (11.5-14.5)
[2019-02-20 08:30] LABS: ALBUMIN 1.9 g/dL (3.4-5.0); ALBUMIN/GLOBULIN RATIO 0.6 (1.0-1.7); ALK PHOS 118 U/L (46-116); ALT (SGPT) 34 U/L (16-63); ANION GAP 7 (6-14); AST (SGOT) 38 U/L (15-37); BLOOD UREA NITROGEN 12 mg/dL (8-26); BUN/CREATININE RATIO 10 (6-20); CALCIUM 8.1 mg/dL (8.5-10.1); CARBON DIOXIDE 28 mmol/L (21-32); CHLORIDE 107 mmol/L (98-107); CREATININE 1.2 mg/dL (0.7-1.3); GLUCOSE 114 mg/dL (70-99); POTASSIUM 3.4 mmol/L (3.5-5.1); SODIUM 142 mmol/L (136-145); TOTAL BILIRUBIN 0.3 mg/dL (0.2-1.0)
[2019-02-20 08:39] LABS: VAL ACID 6 mcg/mL (50-100)
[2019-02-20] MEDS: CLOPIDOGREL BISULFATE 75 MG TABLET PO SCH ×2 (09:00→09:07)
[2019-02-20] MEDS: ALLOPURINOL 100 MG TABLET. PO SCH (09:05)
[2019-02-20] MEDS: ASPIRIN 81 MG TAB.CHEW PO SCH (09:05)
[2019-02-20] MEDS: MULTIVITAMIN I-VITE TABLET. PO SCH ×3 (09:07→21:00)
[2019-02-20] MEDS: LIDOCAINE (700MG/PATCH) PATCH. TD SCH (09:08)
[2019-02-20] MEDS: ATENOLOL 50 MG TABLET PO SCH (09:10)
[2019-02-20] MEDS: NYSTATIN TOPICAL POWDER 15GM BOTTLE. TP SCH ×2 (09:14→19:39)
[2019-02-20] MEDS: LANSOPRAZOLE 30 MG TAB.RAP.DR PO SCH (09:14)
[2019-02-20] MEDS: clonazePAM 0.5 MG TABLET PO SCH ×4 (09:15→21:00)
[2019-02-20] MEDS: DORZOLAMIDE 2% OPHTH SOLUTION 10ML BOTTLE. OU SCH ×3 (09:19→21:00)
[2019-02-20] MEDS: PILOCARPINE 1% OPHTH SOLUTION 15ML BOTTLE. OU SCH ×4 (09:19→21:00)
[2019-02-20] MEDS: BRIMONIDINE 0.2% OPHTH SOLUTION 5ML BOTTLE. OU SCH ×3 (09:19→21:00)
[2019-02-20] MEDS: TIMOLOL 0.5% OPHTH SOLUTION 5ML BOTTLE. OD SCH ×3 (09:20→21:00)
--- NOTE | 2019-02-20 09:22 | NUR ---
Call placed to Radha, zeke at [facility], to update, left detailed message. Faxed current notes for review. Tentative d/c date late next week depending on behaviors.
--- NOTE | 2019-02-20 14:24 | NUR ---
Behavior Intervention Response and Plan: BIRP Note: Behavior: Assumed Care of patient, patient located in Patient Room at shift change. Patient exhibited the following behavior Calm, Able to Focus on Task, Compliant. Brief assessment on rounds of vital signs, medication needs, lab studies, and pain. Treatment plan problems . Intervention: Patient assessed and the following interventions initiated safety checks 15 Minute Checks Head to toe Assessment , Cognitive Assessment , Medications. Response: After interactions and interventions patient responded in the following manner, Calm, Appropriate, Cooperative. Continue to assess behaviors and condition will continue to monitor throughout the shift as needed. Patient educated on ADL's, and hand hygiene. Plan: Continue to monitor Master Treatment Plan for patient's progress toward short term goals of Improved Mood, Decreased Aggression, care home goals to return to previous living setting vs placement. Continue to assess patient for changes in above assessment. Monitor for medication needs, pain, and safety concerns. Hourly rounding performed to ensure safe environment.
--- NOTE | 2019-02-20 15:19 | PN ---
DATE: 02/19/2019 PSYCHIATRIC PROGRESS NOTE This is a late entry 02/19/2019 covers elements not covered in my initial note. SUBJECTIVE: I met with the patient in the evening and staffed at a treatment team meeting with the entire team in the morning. The patient's son, Chino attended along with Toyin, the patient's [id number] and Velma, the patient's daughter. We had a lengthy discussion about his diagnosis. Requirement for wound care. Possible transition to appropriate facility to do the latter. Family are extremely insistent and have decided that they want to continue with his psychiatric stabilization here. We have discussed how his wound progression could worsen the psychiatric symptoms and also cause significant morbidity and mortality physically and we will have to defer some of this to Dr. Francois from medical standpoint to consider family wishes, do and balance at some point, he probably needs transfer for the wound care and psychiatric followup at that facility. Appetite is 50%. Slept 6-1/2 hours. He has been delusional, aggressive at times, refused eyedrops, took his meds whole on 02/19/2019. The family is convinced that he did much better on Klonopin total dosage 0.75 mg a day and we will increase the 0.125 mg t.i.d. to 0.25 mg t.i.d. and we are awaiting labs on the Depakote on 02/20/2018 and decide on that dosage then. REVIEW OF SYSTEMS: Ambulation impaired, in wheelchair. No CV, , pulmonary, eye system symptoms on review. Reliability poor. MENTAL STATUS EXAM: Oriented to himself. Insight, judgment, recent and remote memory, attention, concentration, fund of knowledge poor, consistent with his diagnosis. IMPRESSION: Major neurocognitive disorder, Alzheimer, vascular with delusion, depression, behavioral disturbance; anxiety disorder, unspecified; impulse control disorder, unspecified. Rest as above. PLAN: Increase the Klonopin as above. Adjust the Depakote thereafter. May consider adding Zoloft as an antidepressant and antianxiety agent since we have had to stop the Paxil due to central anticholinergic side effects. Discussed all of this with the family. PAOLO THOMAS MD DR: JOYCE/[email or web address] JOB#: [id number] / [id number]
--- NOTE | 2019-02-20 15:19 | PN ---
DATE: 02/18/2019 PSYCHIATRIC PROGRESS NOTE This late entry 02/18/2019 covers elements not covered in my initial note. SUBJECTIVE: I met with the patient in the evening. The patient slept 8-3/4 hours. He had to be in the quiet room to remove him from stimuli. He has been pulling on hair, trying to hurt people and staff members assisting him, gets more so in the evening. REVIEW OF SYSTEMS: Ambulation impaired, in wheelchair. No CV, , pulmonary, eye, ENT system symptoms on review. MENTAL STATUS EXAM: Oriented to himself. Insight, judgment, recent and remote memory, attention, concentration, fund of knowledge poor, consistent with his diagnosis mentioned in my initial note. PLAN: No change from initial note for now. MAN Modesta THOMAS MD DR: JOYCE/krzysztof JOB#: [id number] / [id number]
--- NOTE | 2019-02-20 15:53 | NUR ---
Received voice message from Radha at [facility] indicating that they could not accept Kevan if his wound was stage four.
[2019-02-20 16:13] VITALS: BP 132/71
[2019-02-20] MEDS: DIVALPROEX 125 MG CAP.SPRINK PO SCH (16:39)
[2019-02-20] MEDS: TAMSULOSIN 0.4 MG CAP.ER.24H. PO SCH ×2 (19:29→21:00)
[2019-02-20] MEDS: ATORVASTATIN CALCIUM 20 MG TABLET PO SCH ×2 (19:29→21:00)
[2019-02-20] MEDS: PATCH REMOVAL. MC SCH (19:30)
[2019-02-20] MEDS: MIRTAZAPINE 15 MG TABLET PO SCH ×2 (19:30→21:00)
[2019-02-20] MEDS: LATANOPROST 0.005% OPHTH SOLUTION 2.5ML BOTTLE. OU SCH ×2 (19:32→21:00)
--- NOTE | 2019-02-20 21:56 | EKG ---
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
--- NOTE | 2019-02-20 22:07 | NUR ---
Patient took his HS meds then he spit them out all over the floor. Refused his eye drops.
--- NOTE | 2019-02-20 22:07 | NUR ---
Behavior Intervention Response and Plan: BIRP Note: Behavior: Assumed Care of patient, patient located in day Room at shift change. Patient exhibited the following behavior Calm, resistive. Brief assessment on rounds of vital signs, medication needs, lab studies, and pain. Treatment plan problems . Intervention: Patient assessed and the following interventions initiated safety checks 15 Minute Checks Head to toe Assessment , Cognitive Assessment , Medications. Response: After interactions and interventions patient responded in the following manner, anxious,angry, non compliant. Continue to assess behaviors and condition will continue to monitor throughout the shift as needed. Patient educated on ADL's, and hand hygiene. 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 Continue to assess patient for changes in above assessment. Monitor for medication needs, pain, and safety concerns. Hourly rounding performed to ensure safe environment.
--- NOTE | 2019-02-20 22:48 | PDOC ---
Exam Note: Scott Note: Please also refer to the separate dictated note~for this date of service dictated separately.~Patient seen individually. Discussed the patient with Nursing staff reviewed the chart.~Reviewed interim history and current functioning. Reviewed vital signs,~Labs/ Radiology~and current medications noted below. Continue current treatment with the changes noted in the dictated addendum note Assessment: Vital Signs: Vital Signs Date Time Temp Pulse Resp B/P (MAP) Pulse Ox O2 Delivery O2 Flow Rate FiO2 02/20/19 16:13 98.3 71 18 132/71 (91) 93 Room Air I&O Intake and Output 02/20/19 07:00 Intake Total 480 ml Balance 480 ml Intake Oral 480 ml # Bowel Movements 1 Labs: Laboratory Tests Test 02/20/19 07:18 02/20/19 07:45 Glucose (Fingerstick) 105 mg/dL (70-99) H White Blood Count 8.0 x10^3/uL (4.0-11.0) Red Blood Count 2.99 x10^6/uL (4.30-5.70) L Hemoglobin 9.9 g/dL (13.0-17.5) L Hematocrit 29.9 % (39.0-53.0) L Mean Corpuscular Volume 100 fL (79-100) Mean Corpuscular Hemoglobin 33 pg (25-35) Mean Corpuscular Hemoglobin Concent 33 g/dL (31-37) Red Cell Distribution Width 16.4 % (11.5-14.5) H Platelet Count 195 x10^3/uL (140-400) Neutrophils (%) (Auto) 63 % (31-73) Lymphocytes (%) (Auto) 20 % (24-48) L Monocytes (%) (Auto) 12 % (0-9) H Eosinophils (%) (Auto) 5 % (0-3) H Basophils (%) (Auto) 0 % (0-3) Neutrophils # (Auto) 5.0 x10^3uL (1.8-7.7) Lymphocytes # (Auto) 1.6 x10^3/uL (1.0-4.8) Monocytes # (Auto) 0.9 x10^3/uL (0.0-1.1) Eosinophils # (Auto) 0.4 x10^3/uL (0.0-0.7) Basophils # (Auto) 0.0 x10^3/uL (0.0-0.2) Sodium Level 142 mmol/L (136-145) Potassium Level 3.4 mmol/L (3.5-5.1) L Chloride Level 107 mmol/L (98-107) Carbon Dioxide Level 28 mmol/L (21-32) Anion Gap 7 (6-14) Blood Urea Nitrogen 12 mg/dL (8-26) Creatinine 1.2 mg/dL (0.7-1.3) Estimated GFR (Cockcroft-Gault) 57.0 BUN/Creatinine Ratio 10 (6-20) Glucose Level 114 mg/dL (70-99) H Calcium Level 8.1 mg/dL (8.5-10.1) L Total Bilirubin 0.3 mg/dL (0.2-1.0) Aspartate Amino Transferase (AST) 38 U/L (15-37) H Alanine Aminotransferase (ALT) 34 U/L (16-63) Alkaline Phosphatase 118 U/L (46-116) H Troponin I Quantitative 0.035 ng/mL (0-0.055) Total Protein 5.0 g/dL (6.4-8.2) L Albumin 1.9 g/dL (3.4-5.0) L Albumin/Globulin Ratio 0.6 (1.0-1.7) L Valproic Acid Level 6 mcg/mL (50-100) L Valproic Acid Last Dose Date 02/19/2019 Valproic Acid Last Dose Time 1500 Current Medications: Meds: Current Medications Sodium Chloride 1,000 ml @ 1,000 mls/hr 1X ONCE IV Last administered on at 17:31; Start 01/26/19 at 17:30; Stop 01/26/19 at 18:29; Status DC Lorazepam (Ativan) 1 mg 1X ONCE IV Last administered on 01/26/19at 21:22; Start 01/26/19 at 21:15; Stop 01/26/19 at 21:23; Status DC Lorazepam (Ativan) 1 mg 1X ONCE IV Last administered on 01/26/19at 22:44; Start 01/26/19 at 22:30; Stop 01/26/19 at 22:32; Status DC Acetaminophen (Tylenol) 650 mg PRN Q6HRS PRN PO PAIN / TEMP; Start 01/27/19 at 00:00; Status Cancel Multi-Ingredient Ointment (Analgesic [place]) 1 edyta PRN QID PRN TP MUSCLE PAIN; Start 01/27/19 at 00:00 Al Hydroxide/Mg Hydroxide (Mylanta Plus Xs) 15 ml PRN AFTMEALHC PRN PO DYSPEPSIA; Start 01/27/19 at 00:00 Magnesium Hydroxide (Milk Of Magnesia) 2,400 mg PRN QHS PRN PO CONSTIPATION Last administered on 02/03/19 08:05; Start 01/27/19 at 00:00 Clonazepam (KlonoPIN) 0.125 mg TID PO Last administered on 02/19/19 08:41; Start 01/27/19 at 09:00; Stop 02/19/19 at 12:07; Status DC Paroxetine HCl (Paxil) 40 mg DAILY PO Last administered on 02/01/19 08:27; Start 01/27/19 at 09:00; Stop 02/01/19 at 18:49; Status DC Trazodone HCl (Desyrel) 12.5 mg QHS PO ; Start 01/27/19 at 21:00; Stop 01/27/19 at 21:00; Status DC Olanzapine (ZyPREXA ZYDIS) 2.5 mg PRN Q2HR PRN PO PSYCHOSIS Last administered on 01/31/19 08:47; Start 01/27/19 at 01:00; Stop 01/31/19 at 20:14; Status DC Acetaminophen (Tylenol) 650 mg PRN QID PRN PO PAIN Last administered on 06:23; Start 01/27/19 at 01:00 Albuterol Sulfate (Ventolin) 1 mg PRN Q6HRS PRN INH SHORTNESS OF BREATH; Start 01/27/19 at 01:00 Aspirin (Hira Aspirin) 325 mg DAILYWBKFT PO Last administered on 02/01/19 08: 27; Start 01/27/19 at 08:00; Stop 02/01/19 at 13:38; Status DC Clonidine HCl (Catapres) 0.1 mg PRN DAILY PRN PO HYPERTENSION, SEE COMMENTS; Start 01/27/19 at 01:00 Clopidogrel Bisulfate (Plavix) 75 mg DAILY PO Last administered on 02/20/19 09 :00; Start 01/27/19 at 09:00 Gabapentin (Neurontin) 100 mg BID94 PO Last administered on 02/05/19 08:34; Start 01/27/19 at 09:00; Stop 02/05/19 at 16:10; Status DC Gabapentin (Neurontin) 100 mg QHS PO Last administered on 02/04/19 20:17; Start 01/27/19 at 21:00; Stop 02/05/19 at 16:10; Status DC Levothyroxine Sodium (Synthroid) 75 mcg DAILY06 PO Last administered on 06:34; Start 01/27/19 at 06:00 Losartan Potassium (Cozaar) 50 mg DAILY PO Last administered on 01/27/19 13:26 ; Start 01/27/19 at 09:00; Stop 01/27/19 at 14:32; Status DC Tamsulosin HCl (Flomax) 0.4 mg DAILY PO Last administered on 02/05/19 08:34; Start 01/27/19 at 09:00; Stop 02/05/19 at 16:10; Status DC Multivitamins/ Minerals (I-Alis) 1 tab BID PO Last administered on 02/20/19 09 :07; Start 01/27/19 at 09:00 Allopurinol (Zyloprim) 150 mg DAILY PO Last administered on 02/20/19 09:05; Start 01/27/19 at 09:00 Non-Formulary Medication (Aloe Vera/ Collagen (Sensi-Care Perineal Cleanser)) 1 edyta BID TP ; Start 01/27/19 at 09:00; Stop 01/27/19 at 09:00; Status DC Atenolol (Tenormin) 100 mg DAILY PO Last administered on 02/20/19 09:10; Start 01/27/19 at 09:00 Atorvastatin Calcium (Lipitor) 40 mg HS PO Last administered on 02/19/19at 19:33 ; Start 01/27/19 at 21:00 Brimonidine Tartrate (Alphagan) 1 drop BID OD ; Start 01/27/19 at 09:00; Stop at 12:36; Status DC Dorzolamide HCl (Trusopt) 1 drop BID OD ; Start 01/27/19 at 09:00; Stop at 12:39; Status DC Finasteride (Proscar) 5 mg DAILY PO Last administered on 02/05/19 08:34; Start 01/27/19 at 09:00; Stop 02/05/19 at 16:10; Status DC Folic Acid (Folic Acid) 1 mg DAILY PO Last administered on 02/01/19 08:26; Start 01/27/19 at 09:00; Stop 02/01/19 at 13:38; Status DC Hydrochlorothiazide (Microzide) 12.5 mg DAILY PO Last administered on at 13:27; Start 01/27/19 at 09:00; Stop 01/27/19 at 14:32; Status DC Lactobacillus Rhamnosus (Culturelle) 1 cap DAILY PO Last administered on 08:34; Start 01/27/19 at 09:00; Stop 02/05/19 at 16:10; Status DC Latanoprost (Xalatan) 1 drop QHS OU Last administered on 02/19/19at 19:36; Start 01/27/19 at 21:00 Multivitamins/ Calcium (Thera-M Plus) 1 tab DAILY PO Last administered on 08:26; Start 01/27/19 at 09:00; Stop 02/01/19 at 13:38; Status DC Pantoprazole Sodium (Protonix) 40 mg DAILYAC PO Last administered on 01/28/19at 10:03; Start 01/27/19 at 07:30; Stop 01/29/19 at 11:24; Status DC Pilocarpine HCl (Pilocar) 1 drop TID OD ; Start 01/27/19 at 09:00; Stop at 12:38; Status DC Timolol Maleate (Timoptic 0.5% Ophth) 1 drop BID OD Last administered on 09:20; Start 01/27/19 at 07:15 Brimonidine Tartrate (Alphagan) 1 drop BID OU Last administered on 02/20/19 09 :19; Start 01/27/19 at 12:36 Pilocarpine HCl (Pilocar) 1 drop TID OU Last administered on 02/20/19at 14:18; Start 01/27/19 at 12:38 Dorzolamide HCl (Trusopt) 1 drop TID OU Last administered on 02/05/19 14:00; Start 01/27/19 at 14:00; Stop 02/05/19 at 16:11; Status DC Olanzapine (ZyPREXA ZYDIS) 2.5 mg PRN Q2HR PRN PO PSYCHOSIS; Start 01/27/19 at 17:30; Stop 01/29/19 at 17:13; Status DC Trazodone HCl (Desyrel) 50 mg PRN QHS PRN PO INSOMNIA, MAY REPEAT X1 Last administered on 02/19/19 19:33; Start 01/27/19 at 17:30 Mirtazapine (Remeron) 7.5 mg QHS PO Last administered on 01/31/19 19:55; Start 01/28/19 at 21:00; Stop 02/01/19 at 18:50; Status DC Lansoprazole (Prevacid) 30 mg DAILYAC PO Last administered on 02/20/19 09:14; Start 01/30/19 at 07:30 Tuberculin PPD (Tubersol) 0.1 ml 1X ONCE ID Last administered on 01/30/19 15: 14; Start 01/30/19 at 14:45; Stop 01/30/19 at 14:52; Status DC Lidocaine (Lidoderm) 1 patch DAILY TD Last administered on 02/20/19 09:08; Start 01/31/19 at 18:00 Miscellaneous (Lidoderm Patch Removal) 1 ea QHS MC Last administered on 19:30; Start 02/01/19 at 03:00 Olanzapine (ZyPREXA ZYDIS) 5 mg PRN Q2HR PRN PO PSYCHOSIS Last administered on 02/18/19 14:12; Start 01/31/19 at 20:15 Aspirin (Children'S Aspirin) 81 mg DAILYWBKFT PO Last administered on 09:05; Start 02/02/19 at 08:00 Paroxetine HCl (Paxil) 30 mg DAILY PO Last administered on 02/04/19 11:29; Start 02/02/19 at 09:00; Stop 02/04/19 at 12:49; Status DC Mirtazapine (Remeron) 15 mg QHS PO Last administered on 02/19/19 19:33; Start 02/01/19 at 21:00 Clonazepam (KlonoPIN) 0.25 mg 1X ONCE PO Last administered on 02/01/19at 23:48; Start 02/02/19 at 00:00; Stop 02/02/19 at 00:01; Status DC Clonazepam (KlonoPIN) 0.25 mg 1X ONCE PO Last administered on 02/02/19at 01:47; Start 02/02/19 at 02:00; Stop 02/02/19 at 02:01; Status DC Olanzapine (ZyPREXA IM) 5 mg DAILY IM ; Start 02/04/19 at 09:00; Stop 02/04/19 at 09:00; Status DC Lorazepam (Ativan) 0.5 mg DAILY IM ; Start 02/04/19 at 09:00; Stop 02/04/19 at 09: 00; Status DC Lorazepam (Ativan) 0.5 mg DAILY IM Last administered on 02/20/19at 09:19; Start 02/03/19 at 11:45 Olanzapine (ZyPREXA IM) 5 mg DAILY IM Last administered on 02/03/19at 11:44; Start 02/03/19 at 11:45; Stop 02/05/19 at 18:32; Status DC Paroxetine HCl (Paxil) 20 mg DAILY PO Last administered on 02/08/19at 07:36; Start 02/05/19 at 09:00; Stop 02/08/19 at 08:59; Status DC Paroxetine HCl (Paxil) 10 mg DAILY PO Last administered on 02/10/19at 12:23; Start 02/08/19 at 09:00; Stop 02/11/19 at 08:59; Status DC Paroxetine HCl (Paxil) 5 mg DAILY PO Last administered on 02/13/19at 09:10; Start 02/11/19 at 09:00; Stop 02/14/19 at 08:59; Status DC Tamsulosin HCl (Flomax) 0.4 mg QHS PO Last administered on 02/19/19at 19:34; Start 02/05/19 at 21:00 Dorzolamide HCl (Trusopt) 1 drop BID OU Last administered on 02/20/19at 09:19; Start 02/05/19 at 21:00 Nystatin (Nystop) 15 edyta STK-MED ONCE TP Last administered on 02/05/19at 21:04; Start 02/05/19 at 21:04; Stop 02/05/19 at 21:05; Status DC Nystatin (Nystop) 1 edyta BID TP Last administered on 02/20/19at 19:39; Start 02/05 at 21:30 Divalproex Sodium (Depakote Sprinkles) 125 mg 1500 PO Last administered on 02/20at 16:39; Start 02/17/19 at 15:00 Clonazepam (KlonoPIN) 0.25 mg TID PO Last administered on 02/20/19at 14:18; Start 02/19/19 at 14:00 Active Scripts Active Reported Sensi-Care Perineal Cleanser (Aloe Vera/Collagen) 118 Ml Solution 1 Edyta TP BID Paroxetine Hcl 40 Mg Tablet 40 Mg PO DAILY Trazodone Hcl 50 Mg Tablet 12.5 Mg PO QHS Dorzolamide Hcl 10 Ml Drops 1 Drp OD BID Timoptic (Timolol Maleate) 10 Ml Drops 1 Drp OD BID Pilocarpine Hcl 5 Mg Tablet 1 Drop OD TID Latanoprost 2.5 Ml Drops 1 Drop OU QHS Alphagan P (Brimonidine Tartrate) 5 Ml Drops 1 Drop OD BID Pantoprazole Sodium 40 Mg Tablet.dr 40 Mg PO DAILY Cozaar (Losartan Potassium) 50 Mg Tablet 50 Mg PO DAILY Levothyroxine Sodium 75 Mcg Tablet 75 Mcg PO DAILYAC Culturelle (Lactobacillus Rhamnosus Gg) 1 Each Capsule 1 Each PO DAILY Gabapentin (Gabapentin) 100 Mg Capsule 100 Mg PO QHS Gabapentin (Gabapentin) 100 Mg Capsule 100 Mg PO BID Finasteride 5 Mg Tablet 5 Mg PO DAILY Clonidine Hcl 0.1 Mg Tablet 0.1 Mg PO PRN DAILY PRN Lipitor (Atorvastatin Calcium) 40 Mg Tablet 40 Mg PO DAILY Atenolol 100 Mg Tablet 100 Mg PO DAILY Allopurinol 300 Mg Tablet 150 Mg PO DAILY Proair Hfa Inhaler (Albuterol Sulfate) 8.5 Gm Hfa.aer.ad 1 Puff INH PRN Q6HRS PRN Multivitamins (Multivitamin) 1 Each Tablet 1 Each PO DAILY Aspirin 325 Mg Tablet 325 Mg PO DAILY Folic Acid 1 Mg Tablet 1 Mg PO DAILY Clopidogrel (Clopidogrel Bisulfate) 75 Mg Tablet 75 Mg PO DAILY [employer] Tablet (A/C/E/Zinc Ox/Cupric Ox/Lutein) 1 Each Tablet 1 Each PO BID Tylenol (Acetaminophen) 325 Mg Tablet 650 Mg PO PRN QID PRN Clonazepam 0.125 Mg Tab.rapdis 0.125 Mg PO TID Tamsulosin Hcl 0.4 Mg Cap.er.24h 0.4 Mg PO DAILY Hydrochlorothiazide Tablet (Hydrochlorothiazide) 12.5 Mg Tablet 12.5 Mg PO DAILY I have reviewed the current psychotropics carefully including drug interactions. Risk benefit ratio favors no change other than as noted in my dictated progress note. Diagnosis: Problems: (1) Medical clearance for psychiatric admission (2) Anxiety disorder (3) Dementia with behavioral disturbance (4) Dementia, vascular, with delusions (5) Dementia, vascular, with depression (6) Dementia in Alzheimer's disease with delusions (7) Dementia in Alzheimer's disease with depression (8) Impulse control disorder PAOLO THOMAS MD Feb 20, 2019 22:48
[2019-02-20] MEDS: traZODone 50 MG TABLET. PO PRN (23:17)
[2019-02-20] MEDS: ACETAMINOPHEN 325 MG TABLET PO PRN ×2 (23:37→23:54)
[2019-02-21] MEDS: LEVOTHYROXINE 75 MCG TABLET PO SCH (05:20)
[2019-02-21 05:56] VITALS: BP 159/72
[2019-02-21] MEDS: CLOPIDOGREL BISULFATE 75 MG TABLET PO SCH (07:51)
[2019-02-21] MEDS: MULTIVITAMIN I-VITE TABLET. PO SCH ×2 (07:51→19:44)
[2019-02-21] MEDS: ASPIRIN 81 MG TAB.CHEW PO SCH (07:51)
[2019-02-21] MEDS: ATENOLOL 50 MG TABLET PO SCH (07:51)
[2019-02-21] MEDS: LANSOPRAZOLE 30 MG TAB.RAP.DR PO SCH (07:51)
[2019-02-21] MEDS: ALLOPURINOL 100 MG TABLET. PO SCH (07:51)
[2019-02-21] MEDS: LIDOCAINE (700MG/PATCH) PATCH. TD SCH (07:52)
[2019-02-21] MEDS: clonazePAM 0.5 MG TABLET PO SCH ×3 (07:54→19:44)
[2019-02-21] MEDS: BRIMONIDINE 0.2% OPHTH SOLUTION 5ML BOTTLE. OU SCH ×2 (09:00→21:28)
[2019-02-21] MEDS: DORZOLAMIDE 2% OPHTH SOLUTION 10ML BOTTLE. OU SCH ×2 (09:00→21:29)
[2019-02-21] MEDS: TIMOLOL 0.5% OPHTH SOLUTION 5ML BOTTLE. OD SCH ×2 (09:00→21:29)
[2019-02-21] MEDS: PILOCARPINE 1% OPHTH SOLUTION 15ML BOTTLE. OU SCH ×3 (09:00→21:29)
[2019-02-21] MEDS: NYSTATIN TOPICAL POWDER 15GM BOTTLE. TP SCH ×2 (09:00→21:00)
--- NOTE | 2019-02-21 09:53 | NUR ---
Behavior Intervention Response and Plan: BIRP Note: Behavior: Assumed Care of patient, patient located in Dining Room at shift change. Patient exhibited the following behavior Disorganized, Irritable, Compliant. Brief assessment on rounds of vital signs, medication needs, lab studies, and pain. Treatment plan problems . Intervention: Patient assessed and the following interventions initiated safety checks 15 Minute Checks Head to toe Assessment , Cognitive Assessment , Medications. Response: After interactions and interventions patient responded in the following manner, Delusions , Drowsy ,Resistive. Continue to assess behaviors and condition will continue to monitor throughout the shift as needed. Patient educated on ADL's, and hand hygiene. Plan: Continue to monitor Master Treatment Plan for patient's progress toward short term goals of Improved Mood, Decreased Agitation, fpc goals to return to previous living setting vs placement. Continue to assess patient for changes in above assessment. Monitor for medication needs, pain, and safety concerns. Hourly rounding performed to ensure safe environment.
[2019-02-21] MEDS: DIVALPROEX 125 MG CAP.SPRINK PO SCH (13:53)
[2019-02-21 16:37] VITALS: BP 155/76
[2019-02-21] MEDS: TAMSULOSIN 0.4 MG CAP.ER.24H. PO SCH (19:44)
[2019-02-21] MEDS: ATORVASTATIN CALCIUM 20 MG TABLET PO SCH (19:44)
[2019-02-21] MEDS: ACETAMINOPHEN 325 MG TABLET PO PRN (19:44)
[2019-02-21] MEDS: MIRTAZAPINE 15 MG TABLET PO SCH (19:44)
--- NOTE | 2019-02-21 20:00 | NUR ---
Behavior Intervention Response and Plan: BIRP Note: Behavior: Assumed Care of patient, patient located in Day Room at shift change. Patient exhibited the following behavior Calm, Interactive, Able to Focus on Task. Brief assessment on rounds of vital signs, medication needs, lab studies, and pain. Treatment plan problems . Intervention: Patient assessed and the following interventions initiated safety checks 15 Minute Checks Cognitive Assessment , Head to toe Assessment , Medications. Response: After interactions and interventions patient responded in the following manner, Appropriate , Compliant ,Cooperative. Continue to assess behaviors and condition will continue to monitor throughout the shift as needed. Patient educated on ADL's, and hand hygiene. Plan: Continue to monitor Master Treatment Plan for patient's progress toward short term goals of Medication Compliance, Improved Mood, termination clerk goals to return to previous living setting vs placement. Continue to assess patient for changes in above assessment. Monitor for medication needs, pain, and safety concerns. Hourly rounding performed to ensure safe environment.
--- NOTE | 2019-02-21 20:54 | PN ---
DATE: 02/20/2019 PSYCHIATRIC PROGRESS NOTE This is a late entry, 02/20/2019, covers elements not covered in my initial note. SUBJECTIVE: I met with the patient in the evening. The patient slept 9-3/4 hours previous night. He remains confused, but has been very appreciative of nursing help and grateful and thankful for cares. He woke himself in the morning and then the rest of the day went much better. EKG was abnormal. Troponin first draw is normal and I will defer to Dr. Francois. REVIEW OF SYSTEMS: No CV, , pulmonary, eye, ENT system symptoms on review. Gait unsteady, in wheelchair. MENTAL STATUS EXAM: Oriented to himself. Insight, judgment, recent and remote memory, attention, concentration, fund of knowledge poor, consistent with his diagnoses mentioned in my initial note. PLAN: No change from initial note. MAN Modesta THOMAS MD DR: [email or web address] JOB#: [id number] / [id number]
[2019-02-21] MEDS: PATCH REMOVAL. MC SCH (21:00)
[2019-02-21] MEDS: LATANOPROST 0.005% OPHTH SOLUTION 2.5ML BOTTLE. OU SCH (21:29)
[2019-02-21] MEDS ORDERED: LOPERAMIDE 2 MG CAPSULE PO PRN (22:15)
--- NOTE | 2019-02-21 23:15 | PDOC ---
Exam Note: Scott Note: Please also refer to the separate dictated note~for this date of service dictated separately.~Patient seen individually. Discussed the patient with Nursing staff reviewed the chart.~Reviewed interim history and current functioning. Reviewed vital signs,~Labs/ Radiology~and current medications noted below. Continue current treatment with the changes noted in the dictated addendum note Assessment: Vital Signs: Vital Signs Date Time Temp Pulse Resp B/P (MAP) Pulse Ox O2 Delivery O2 Flow Rate FiO2 02/21/19 16:37 96.6 67 20 155/76 (102) 97 Room Air I&O Intake and Output 02/21/19 07:00 Intake Total 580 ml Balance 580 ml Intake Oral 580 ml # Bowel Movements 1 Labs: Laboratory Tests Test 02/21/19 07:16 02/21/19 08:50 Glucose (Fingerstick) 103 mg/dL (70-99) H Troponin I Quantitative 0.029 ng/mL (0-0.055) Current Medications: Meds: Current Medications Sodium Chloride 1,000 ml @ 1,000 mls/hr 1X ONCE IV Last administered on at 17:31; Start 01/26/19 at 17:30; Stop 01/26/19 at 18:29; Status DC Lorazepam (Ativan) 1 mg 1X ONCE IV Last administered on 01/26/19at 21:22; Start 01/26/19 at 21:15; Stop 01/26/19 at 21:23; Status DC Lorazepam (Ativan) 1 mg 1X ONCE IV Last administered on 01/26/19at 22:44; Start 01/26/19 at 22:30; Stop 01/26/19 at 22:32; Status DC Acetaminophen (Tylenol) 650 mg PRN Q6HRS PRN PO PAIN / TEMP; Start 01/27/19 at 00:00; Status Cancel Multi-Ingredient Ointment (Analgesic [place]) 1 edyta PRN QID PRN TP MUSCLE PAIN; Start 01/27/19 at 00:00 Al Hydroxide/Mg Hydroxide (Mylanta Plus Xs) 15 ml PRN AFTMEALHC PRN PO DYSPEPSIA; Start 01/27/19 at 00:00 Magnesium Hydroxide (Milk Of Magnesia) 2,400 mg PRN QHS PRN PO CONSTIPATION Last administered on 02/03/19at 08:05; Start 01/27/19 at 00:00 Clonazepam (KlonoPIN) 0.125 mg TID PO Last administered on 02/19/19 08:41; Start 01/27/19 at 09:00; Stop 02/19/19 at 12:07; Status DC Paroxetine HCl (Paxil) 40 mg DAILY PO Last administered on 02/01/19 08:27; Start 01/27/19 at 09:00; Stop 02/01/19 at 18:49; Status DC Trazodone HCl (Desyrel) 12.5 mg QHS PO ; Start 01/27/19 at 21:00; Stop 01/27/19 at 21:00; Status DC Olanzapine (ZyPREXA ZYDIS) 2.5 mg PRN Q2HR PRN PO PSYCHOSIS Last administered on 01/31/19 08:47; Start 01/27/19 at 01:00; Stop 01/31/19 at 20:14; Status DC Acetaminophen (Tylenol) 650 mg PRN QID PRN PO PAIN Last administered on 19:44; Start 01/27/19 at 01:00 Albuterol Sulfate (Ventolin) 1 mg PRN Q6HRS PRN INH SHORTNESS OF BREATH; Start 01/27/19 at 01:00 Aspirin (Hira Aspirin) 325 mg DAILYWBKFT PO Last administered on 02/01/19 08: 27; Start 01/27/19 at 08:00; Stop 02/01/19 at 13:38; Status DC Clonidine HCl (Catapres) 0.1 mg PRN DAILY PRN PO HYPERTENSION, SEE COMMENTS; Start 01/27/19 at 01:00 Clopidogrel Bisulfate (Plavix) 75 mg DAILY PO Last administered on 02/21/19 07 :51; Start 01/27/19 at 09:00 Gabapentin (Neurontin) 100 mg BID94 PO Last administered on 02/05/19 08:34; Start 01/27/19 at 09:00; Stop 02/05/19 at 16:10; Status DC Gabapentin (Neurontin) 100 mg QHS PO Last administered on 02/04/19 20:17; Start 01/27/19 at 21:00; Stop 02/05/19 at 16:10; Status DC Levothyroxine Sodium (Synthroid) 75 mcg DAILY06 PO Last administered on 05:20; Start 01/27/19 at 06:00 Losartan Potassium (Cozaar) 50 mg DAILY PO Last administered on 01/27/19 13:26 ; Start 01/27/19 at 09:00; Stop 01/27/19 at 14:32; Status DC Tamsulosin HCl (Flomax) 0.4 mg DAILY PO Last administered on 02/05/19 08:34; Start 01/27/19 at 09:00; Stop 02/05/19 at 16:10; Status DC Multivitamins/ Minerals (I-Alis) 1 tab BID PO Last administered on 02/21/19 19 :44; Start 01/27/19 at 09:00 Allopurinol (Zyloprim) 150 mg DAILY PO Last administered on 02/21/19 07:51; Start 01/27/19 at 09:00 Non-Formulary Medication (Aloe Vera/ Collagen (Sensi-Care Perineal Cleanser)) 1 edyta BID TP ; Start 01/27/19 at 09:00; Stop 01/27/19 at 09:00; Status DC Atenolol (Tenormin) 100 mg DAILY PO Last administered on 02/21/19 07:51; Start 01/27/19 at 09:00 Atorvastatin Calcium (Lipitor) 40 mg HS PO Last administered on 02/21/19 19:44 ; Start 01/27/19 at 21:00 Brimonidine Tartrate (Alphagan) 1 drop BID OD ; Start 01/27/19 at 09:00; Stop at 12:36; Status DC Dorzolamide HCl (Trusopt) 1 drop BID OD ; Start 01/27/19 at 09:00; Stop at 12:39; Status DC Finasteride (Proscar) 5 mg DAILY PO Last administered on 02/05/19 08:34; Start 01/27/19 at 09:00; Stop 02/05/19 at 16:10; Status DC Folic Acid (Folic Acid) 1 mg DAILY PO Last administered on 02/01/19 08:26; Start 01/27/19 at 09:00; Stop 02/01/19 at 13:38; Status DC Hydrochlorothiazide (Microzide) 12.5 mg DAILY PO Last administered on 13:27; Start 01/27/19 at 09:00; Stop 01/27/19 at 14:32; Status DC Lactobacillus Rhamnosus (Culturelle) 1 cap DAILY PO Last administered on 08:34; Start 01/27/19 at 09:00; Stop 02/05/19 at 16:10; Status DC Latanoprost (Xalatan) 1 drop QHS OU Last administered on 02/21/19at 21:29; Start 01/27/19 at 21:00 Multivitamins/ Calcium (Thera-M Plus) 1 tab DAILY PO Last administered on 08:26; Start 01/27/19 at 09:00; Stop 02/01/19 at 13:38; Status DC Pantoprazole Sodium (Protonix) 40 mg DAILYAC PO Last administered on 01/28/19 10:03; Start 01/27/19 at 07:30; Stop 01/29/19 at 11:24; Status DC Pilocarpine HCl (Pilocar) 1 drop TID OD ; Start 01/27/19 at 09:00; Stop at 12:38; Status DC Timolol Maleate (Timoptic 0.5% Oph) 1 drop BID OD Last administered on 21:29; Start 01/27/19 at 07:15 Brimonidine Tartrate (Alphagan) 1 drop BID OU Last administered on 02/21/19 21 :28; Start 01/27/19 at 12:36 Pilocarpine HCl (Pilocar) 1 drop TID OU Last administered on 02/21/19 21:29; Start 01/27/19 at 12:38 Dorzolamide HCl (Trusopt) 1 drop TID OU Last administered on 02/05/19 14:00; Start 01/27/19 at 14:00; Stop 02/05/19 at 16:11; Status DC Olanzapine (ZyPREXA ZYDIS) 2.5 mg PRN Q2HR PRN PO PSYCHOSIS; Start 01/27/19 at 17:30; Stop 01/29/19 at 17:13; Status DC Trazodone HCl (Desyrel) 50 mg PRN QHS PRN PO INSOMNIA, MAY REPEAT X1 Last administered on 02/20/19 23:17; Start 01/27/19 at 17:30 Mirtazapine (Remeron) 7.5 mg QHS PO Last administered on 01/31/19 19:55; Start 01/28/19 at 21:00; Stop 02/01/19 at 18:50; Status DC Lansoprazole (Prevacid) 30 mg DAILYAC PO Last administered on 02/21/19 07:51; Start 01/30/19 at 07:30 Tuberculin PPD (Tubersol) 0.1 ml 1X ONCE ID Last administered on 01/30/19 15: 14; Start 01/30/19 at 14:45; Stop 01/30/19 at 14:52; Status DC Lidocaine (Lidoderm) 1 patch DAILY TD Last administered on 02/21/19 07:52; Start 01/31/19 at 18:00 Miscellaneous (Lidoderm Patch Removal) 1 ea QHS MC Last administered on 21:00; Start 02/01/19 at 03:00 Olanzapine (ZyPREXA ZYDIS) 5 mg PRN Q2HR PRN PO PSYCHOSIS Last administered on 02/18/19 14:12; Start 01/31/19 at 20:15 Aspirin (Children'S Aspirin) 81 mg DAILYWBKFT PO Last administered on 07:51; Start 02/02/19 at 08:00 Paroxetine HCl (Paxil) 30 mg DAILY PO Last administered on 02/04/19 11:29; Start 02/02/19 at 09:00; Stop 02/04/19 at 12:49; Status DC Mirtazapine (Remeron) 15 mg QHS PO Last administered on 02/21/19 19:44; Start 02/01/19 at 21:00 Clonazepam (KlonoPIN) 0.25 mg 1X ONCE PO Last administered on 02/01/19 23:48; Start 02/02/19 at 00:00; Stop 02/02/19 at 00:01; Status DC Clonazepam (KlonoPIN) 0.25 mg 1X ONCE PO Last administered on 02/02/19 01:47; Start 02/02/19 at 02:00; Stop 02/02/19 at 02:01; Status DC Olanzapine (ZyPREXA IM) 5 mg DAILY IM ; Start 02/04/19 at 09:00; Stop 02/04/19 at 09:00; Status DC Lorazepam (Ativan) 0.5 mg DAILY IM ; Start 02/04/19 at 09:00; Stop 02/04/19 at 09: 00; Status DC Lorazepam (Ativan) 0.5 mg DAILY IM Last administered on 02/21/19at 07:54; Start 02/03/19 at 11:45 Olanzapine (ZyPREXA IM) 5 mg DAILY IM Last administered on 02/03/19 11:44; Start 02/03/19 at 11:45; Stop 02/05/19 at 18:32; Status DC Paroxetine HCl (Paxil) 20 mg DAILY PO Last administered on 02/08/19at 07:36; Start 02/05/19 at 09:00; Stop 02/08/19 at 08:59; Status DC Paroxetine HCl (Paxil) 10 mg DAILY PO Last administered on 02/10/19 12:23; Start 02/08/19 at 09:00; Stop 02/11/19 at 08:59; Status DC Paroxetine HCl (Paxil) 5 mg DAILY PO Last administered on 02/13/19 09:10; Start 02/11/19 at 09:00; Stop 02/14/19 at 08:59; Status DC Tamsulosin HCl (Flomax) 0.4 mg QHS PO Last administered on 02/21/19 19:44; Start 02/05/19 at 21:00 Dorzolamide HCl (Trusopt) 1 drop BID OU Last administered on 02/21/19 21:29; Start 02/05/19 at 21:00 Nystatin (Nystop) 15 edyta STK-MED ONCE TP Last administered on 02/05/19 21:04; Start 02/05/19 at 21:04; Stop 02/05/19 at 21:05; Status DC Nystatin (Nystop) 1 edyta BID TP Last administered on 02/21/19 21:00; Start 02/05 at 21:30 Divalproex Sodium (Depakote Sprinkles) 125 mg 1500 PO Last administered on 02/21 13:53; Start 02/17/19 at 15:00 Clonazepam (KlonoPIN) 0.25 mg TID PO Last administered on 02/21/19at 19:44; Start 02/19/19 at 14:00 Loperamide HCl (Imodium) 2 mg PRN Q15MIN PRN PO DIARRHEA; Start 02/21/19 at 22: 15; Status UNV Active Scripts Active Reported Sensi-Care Perineal Cleanser (Aloe Vera/Collagen) 118 Ml Solution 1 Edyta TP BID Paroxetine Hcl 40 Mg Tablet 40 Mg PO DAILY Trazodone Hcl 50 Mg Tablet 12.5 Mg PO QHS Dorzolamide Hcl 10 Ml Drops 1 Drp OD BID Timoptic (Timolol Maleate) 10 Ml Drops 1 Drp OD BID Pilocarpine Hcl 5 Mg Tablet 1 Drop OD TID Latanoprost 2.5 Ml Drops 1 Drop OU QHS Alphagan P (Brimonidine Tartrate) 5 Ml Drops 1 Drop OD BID Pantoprazole Sodium 40 Mg Tablet.dr 40 Mg PO DAILY Cozaar (Losartan Potassium) 50 Mg Tablet 50 Mg PO DAILY Levothyroxine Sodium 75 Mcg Tablet 75 Mcg PO DAILYAC Culturelle (Lactobacillus Rhamnosus Gg) 1 Each Capsule 1 Each PO DAILY Gabapentin (Gabapentin) 100 Mg Capsule 100 Mg PO QHS Gabapentin (Gabapentin) 100 Mg Capsule 100 Mg PO BID Finasteride 5 Mg Tablet 5 Mg PO DAILY Clonidine Hcl 0.1 Mg Tablet 0.1 Mg PO PRN DAILY PRN Lipitor (Atorvastatin Calcium) 40 Mg Tablet 40 Mg PO DAILY Atenolol 100 Mg Tablet 100 Mg PO DAILY Allopurinol 300 Mg Tablet 150 Mg PO DAILY Proair Hfa Inhaler (Albuterol Sulfate) 8.5 Gm Hfa.aer.ad 1 Puff INH PRN Q6HRS PRN Multivitamins (Multivitamin) 1 Each Tablet 1 Each PO DAILY Aspirin 325 Mg Tablet 325 Mg PO DAILY Folic Acid 1 Mg Tablet 1 Mg PO DAILY Clopidogrel (Clopidogrel Bisulfate) 75 Mg Tablet 75 Mg PO DAILY Mac[employer]ite [employer] Tablet (A/C/E/Zinc Ox/Cupric Ox/Lutein) 1 Each Tablet 1 Each PO BID Tylenol (Acetaminophen) 325 Mg Tablet 650 Mg PO PRN QID PRN Clonazepam 0.125 Mg Tab.rapdis 0.125 Mg PO TID Tamsulosin Hcl 0.4 Mg Cap.er.24h 0.4 Mg PO DAILY Hydrochlorothiazide Tablet (Hydrochlorothiazide) 12.5 Mg Tablet 12.5 Mg PO DAILY I have reviewed the current psychotropics carefully including drug interactions. Risk benefit ratio favors no change other than as noted in my dictated progress note. Diagnosis: Problems: (1) Medical clearance for psychiatric admission (2) Anxiety disorder (3) Dementia with behavioral disturbance (4) Dementia, vascular, with delusions (5) Dementia, vascular, with depression (6) Dementia in Alzheimer's disease with delusions (7) Dementia in Alzheimer's disease with depression (8) Impulse control disorder PAOLO THOMAS MD Feb 21, 2019 23:15
[2019-02-21] MEDS: traZODone 50 MG TABLET. PO PRN (23:17)
[2019-02-22] MEDS: LEVOTHYROXINE 75 MCG TABLET PO SCH (06:04)
[2019-02-22 06:20] VITALS: BP 129/57
[2019-02-22] MEDS: LIDOCAINE (700MG/PATCH) PATCH. TD SCH (07:11)
[2019-02-22] MEDS: MULTIVITAMIN I-VITE TABLET. PO SCH ×2 (07:12→20:12)
[2019-02-22] MEDS: ALLOPURINOL 100 MG TABLET. PO SCH (07:12)
[2019-02-22] MEDS: CLOPIDOGREL BISULFATE 75 MG TABLET PO SCH (07:12)
[2019-02-22] MEDS: ATENOLOL 50 MG TABLET PO SCH (07:12)
[2019-02-22] MEDS: ASPIRIN 81 MG TAB.CHEW PO SCH (07:12)
[2019-02-22] MEDS: clonazePAM 0.5 MG TABLET PO SCH ×3 (07:15→20:12)
[2019-02-22] MEDS: LANSOPRAZOLE 30 MG TAB.RAP.DR PO SCH (07:15)
[2019-02-22] MEDS: BRIMONIDINE 0.2% OPHTH SOLUTION 5ML BOTTLE. OU SCH ×2 (07:16→20:13)
[2019-02-22] MEDS: NYSTATIN TOPICAL POWDER 15GM BOTTLE. TP SCH ×2 (07:16→20:13)
[2019-02-22] MEDS: PILOCARPINE 1% OPHTH SOLUTION 15ML BOTTLE. OU SCH ×3 (07:16→20:13)
[2019-02-22] MEDS: TIMOLOL 0.5% OPHTH SOLUTION 5ML BOTTLE. OD SCH ×2 (07:16→20:12)
[2019-02-22] MEDS: DORZOLAMIDE 2% OPHTH SOLUTION 10ML BOTTLE. OU SCH ×2 (07:16→20:12)
[2019-02-22 10:18] LABS: FECAL OB PT NEGATIVE (NEG)
[2019-02-22] MEDS: DIVALPROEX 125 MG CAP.SPRINK PO SCH (13:51)
--- NOTE | 2019-02-22 16:39 | NUR ---
Behavior Intervention Response and Plan: BIRP Note: Behavior: Assumed Care of patient, patient located in Day Room at shift change. Patient exhibited the following behavior Calm, Interactive, Able to Focus on Task. Brief assessment on rounds of vital signs, medication needs, lab studies, and pain. Treatment plan problems . Intervention: Patient assessed and the following interventions initiated safety checks 15 Minute Checks Cognitive Assessment , Head to toe Assessment , Medications. Response: After interactions and interventions patient responded in the following manner, Appropriate , Compliant ,Cooperative. Continue to assess behaviors and condition will continue to monitor throughout the shift as needed. Patient educated on ADL's, and hand hygiene. Plan: Continue to monitor Master Treatment Plan for patient's progress toward short term goals of Medication Compliance, Improved Mood, long term care social worker goals to return to previous living setting vs placement. Continue to assess patient for changes in above assessment. Monitor for medication needs, pain, and safety concerns. Hourly rounding performed to ensure safe environment.
[2019-02-22 16:49] VITALS: BP 135/82
[2019-02-22] MEDS: ACETAMINOPHEN 325 MG TABLET PO PRN (17:07)
[2019-02-22] MEDS: TAMSULOSIN 0.4 MG CAP.ER.24H. PO SCH (20:11)
[2019-02-22] MEDS: PATCH REMOVAL. MC SCH (20:11)
[2019-02-22] MEDS: ATORVASTATIN CALCIUM 20 MG TABLET PO SCH (20:12)
[2019-02-22] MEDS: MIRTAZAPINE 15 MG TABLET PO SCH (20:12)
[2019-02-22] MEDS: LATANOPROST 0.005% OPHTH SOLUTION 2.5ML BOTTLE. OU SCH (20:13)
--- NOTE | 2019-02-22 21:00 | NUR ---
Behavior Intervention Response and Plan: BIRP Note: Behavior: Assumed Care of patient, patient located in Day Room at shift change. Patient exhibited the following behavior Calm, Appropriate, Compliant. Brief assessment on rounds of vital signs, medication needs, lab studies, and pain. Treatment plan problems . Intervention: Patient assessed and the following interventions initiated safety checks 15 Minute Checks Head to toe Assessment , Cognitive Assessment , Medications. Response: After interactions and interventions patient responded in the following manner, Cooperative , Withdrawn ,Drowsy. Continue to assess behaviors and condition will continue to monitor throughout the shift as needed. Patient educated on ADL's, and hand hygiene. Plan: Continue to monitor Master Treatment Plan for patient's progress toward short term goals of Improved Mood, Medication Compliance, retirement goals to return to previous living setting vs placement. Continue to assess patient for changes in above assessment. Monitor for medication needs, pain, and safety concerns. Hourly rounding performed to ensure safe environment.
--- NOTE | 2019-02-22 23:40 | PDOC ---
Exam Note: Scott Note: Please also refer to the separate dictated note~for this date of service dictated separately.~Patient seen individually. Discussed the patient with Nursing staff reviewed the chart.~Reviewed interim history and current functioning. Reviewed vital signs,~Labs/ Radiology~and current medications noted below. Continue current treatment with the changes noted in the dictated addendum note Assessment: Vital Signs: Vital Signs Date Time Temp Pulse Resp B/P (MAP) Pulse Ox O2 Delivery O2 Flow Rate FiO2 02/22/19 16:49 97.8 73 18 135/82 (99) 94 Room Air I&O Intake and Output 02/22/19 07:00 Intake Total 1140 ml Balance 1140 ml Intake Oral 1140 ml # Voids 1 # Bowel Movements 2 Labs: Laboratory Tests Test 02/22/19 07:49 02/22/19 08:56 Glucose (Fingerstick) 106 mg/dL (70-99) H Stool Occult Blood Negative (NEG) Current Medications: Meds: Current Medications Sodium Chloride 1,000 ml @ 1,000 mls/hr 1X ONCE IV Last administered on at 17:31; Start 01/26/19 at 17:30; Stop 01/26/19 at 18:29; Status DC Lorazepam (Ativan) 1 mg 1X ONCE IV Last administered on 01/26/19at 21:22; Start 01/26/19 at 21:15; Stop 01/26/19 at 21:23; Status DC Lorazepam (Ativan) 1 mg 1X ONCE IV Last administered on 01/26/19at 22:44; Start 01/26/19 at 22:30; Stop 01/26/19 at 22:32; Status DC Acetaminophen (Tylenol) 650 mg PRN Q6HRS PRN PO PAIN / TEMP; Start 01/27/19 at 00:00; Status Cancel Multi-Ingredient Ointment (Analgesic [place]) 1 edyta PRN QID PRN TP MUSCLE PAIN; Start 01/27/19 at 00:00 Al Hydroxide/Mg Hydroxide (Mylanta Plus Xs) 15 ml PRN AFTMEALHC PRN PO DYSPEPSIA; Start 01/27/19 at 00:00 Magnesium Hydroxide (Milk Of Magnesia) 2,400 mg PRN QHS PRN PO CONSTIPATION Last administered on 02/03/19at 08:05; Start 01/27/19 at 00:00 Clonazepam (KlonoPIN) 0.125 mg TID PO Last administered on 02/19/19 08:41; Start 01/27/19 at 09:00; Stop 02/19/19 at 12:07; Status DC Paroxetine HCl (Paxil) 40 mg DAILY PO Last administered on 02/01/19 08:27; Start 01/27/19 at 09:00; Stop 02/01/19 at 18:49; Status DC Trazodone HCl (Desyrel) 12.5 mg QHS PO ; Start 01/27/19 at 21:00; Stop 01/27/19 at 21:00; Status DC Olanzapine (ZyPREXA ZYDIS) 2.5 mg PRN Q2HR PRN PO PSYCHOSIS Last administered on 01/31/19 08:47; Start 01/27/19 at 01:00; Stop 01/31/19 at 20:14; Status DC Acetaminophen (Tylenol) 650 mg PRN QID PRN PO PAIN Last administered on 17:07; Start 01/27/19 at 01:00 Albuterol Sulfate (Ventolin) 1 mg PRN Q6HRS PRN INH SHORTNESS OF BREATH; Start 01/27/19 at 01:00 Aspirin (Hira Aspirin) 325 mg DAILYWBKFT PO Last administered on 02/01/19 08: 27; Start 01/27/19 at 08:00; Stop 02/01/19 at 13:38; Status DC Clonidine HCl (Catapres) 0.1 mg PRN DAILY PRN PO HYPERTENSION, SEE COMMENTS; Start 01/27/19 at 01:00 Clopidogrel Bisulfate (Plavix) 75 mg DAILY PO Last administered on 02/22/19 07 :12; Start 01/27/19 at 09:00 Gabapentin (Neurontin) 100 mg BID94 PO Last administered on 02/05/19at 08:34; Start 01/27/19 at 09:00; Stop 02/05/19 at 16:10; Status DC Gabapentin (Neurontin) 100 mg QHS PO Last administered on 02/04/19 20:17; Start 01/27/19 at 21:00; Stop 02/05/19 at 16:10; Status DC Levothyroxine Sodium (Synthroid) 75 mcg DAILY06 PO Last administered on 06:04; Start 01/27/19 at 06:00 Losartan Potassium (Cozaar) 50 mg DAILY PO Last administered on 01/27/19at 13:26 ; Start 01/27/19 at 09:00; Stop 01/27/19 at 14:32; Status DC Tamsulosin HCl (Flomax) 0.4 mg DAILY PO Last administered on 02/05/19 08:34; Start 01/27/19 at 09:00; Stop 02/05/19 at 16:10; Status DC Multivitamins/ Minerals (I-Alis) 1 tab BID PO Last administered on 02/22/19 20 :12; Start 01/27/19 at 09:00 Allopurinol (Zyloprim) 150 mg DAILY PO Last administered on 02/22/19 07:12; Start 01/27/19 at 09:00 Non-Formulary Medication (Aloe Vera/ Collagen (Sensi-Care Perineal Cleanser)) 1 edyta BID TP ; Start 01/27/19 at 09:00; Stop 01/27/19 at 09:00; Status DC Atenolol (Tenormin) 100 mg DAILY PO Last administered on 02/22/19 07:12; Start 01/27/19 at 09:00 Atorvastatin Calcium (Lipitor) 40 mg HS PO Last administered on 02/22/19at 20:12 ; Start 01/27/19 at 21:00 Brimonidine Tartrate (Alphagan) 1 drop BID OD ; Start 01/27/19 at 09:00; Stop at 12:36; Status DC Dorzolamide HCl (Trusopt) 1 drop BID OD ; Start 01/27/19 at 09:00; Stop at 12:39; Status DC Finasteride (Proscar) 5 mg DAILY PO Last administered on 02/05/19 08:34; Start 01/27/19 at 09:00; Stop 02/05/19 at 16:10; Status DC Folic Acid (Folic Acid) 1 mg DAILY PO Last administered on 02/01/19 08:26; Start 01/27/19 at 09:00; Stop 02/01/19 at 13:38; Status DC Hydrochlorothiazide (Microzide) 12.5 mg DAILY PO Last administered on 13:27; Start 01/27/19 at 09:00; Stop 01/27/19 at 14:32; Status DC Lactobacillus Rhamnosus (Culturelle) 1 cap DAILY PO Last administered on 08:34; Start 01/27/19 at 09:00; Stop 02/05/19 at 16:10; Status DC Latanoprost (Xalatan) 1 drop QHS OU Last administered on 02/22/19 20:13; Start 01/27/19 at 21:00 Multivitamins/ Calcium (Thera-M Plus) 1 tab DAILY PO Last administered on 08:26; Start 01/27/19 at 09:00; Stop 02/01/19 at 13:38; Status DC Pantoprazole Sodium (Protonix) 40 mg DAILYAC PO Last administered on 01/28/19 10:03; Start 01/27/19 at 07:30; Stop 01/29/19 at 11:24; Status DC Pilocarpine HCl (Pilocar) 1 drop TID OD ; Start 01/27/19 at 09:00; Stop at 12:38; Status DC Timolol Maleate (Timoptic 0.5% Ophth) 1 drop BID OD Last administered on 20:12; Start 01/27/19 at 07:15 Brimonidine Tartrate (Alphagan) 1 drop BID OU Last administered on 02/22/19 20 :13; Start 01/27/19 at 12:36 Pilocarpine HCl (Pilocar) 1 drop TID OU Last administered on 02/22/19 20:13; Start 01/27/19 at 12:38 Dorzolamide HCl (Trusopt) 1 drop TID OU Last administered on 02/05/19 14:00; Start 01/27/19 at 14:00; Stop 02/05/19 at 16:11; Status DC Olanzapine (ZyPREXA ZYDIS) 2.5 mg PRN Q2HR PRN PO PSYCHOSIS; Start 01/27/19 at 17:30; Stop 01/29/19 at 17:13; Status DC Trazodone HCl (Desyrel) 50 mg PRN QHS PRN PO INSOMNIA, MAY REPEAT X1 Last administered on 02/21/19 23:17; Start 01/27/19 at 17:30 Mirtazapine (Remeron) 7.5 mg QHS PO Last administered on 01/31/19 19:55; Start 01/28/19 at 21:00; Stop 02/01/19 at 18:50; Status DC Lansoprazole (Prevacid) 30 mg DAILYAC PO Last administered on 02/22/19 07:15; Start 01/30/19 at 07:30 Tuberculin PPD (Tubersol) 0.1 ml 1X ONCE ID Last administered on 01/30/19 15: 14; Start 01/30/19 at 14:45; Stop 01/30/19 at 14:52; Status DC Lidocaine (Lidoderm) 1 patch DAILY TD Last administered on 02/22/19 07:11; Start 01/31/19 at 18:00 Miscellaneous (Lidoderm Patch Removal) 1 ea QHS MC Last administered on 20:11; Start 02/01/19 at 03:00 Olanzapine (ZyPREXA ZYDIS) 5 mg PRN Q2HR PRN PO PSYCHOSIS Last administered on 02/18/19 14:12; Start 01/31/19 at 20:15 Aspirin (Children'S Aspirin) 81 mg DAILYWBKFT PO Last administered on 07:12; Start 02/02/19 at 08:00 Paroxetine HCl (Paxil) 30 mg DAILY PO Last administered on 02/04/19 11:29; Start 02/02/19 at 09:00; Stop 02/04/19 at 12:49; Status DC Mirtazapine (Remeron) 15 mg QHS PO Last administered on 02/22/19 20:12; Start 02/01/19 at 21:00 Clonazepam (KlonoPIN) 0.25 mg 1X ONCE PO Last administered on 02/01/19 23:48; Start 02/02/19 at 00:00; Stop 02/02/19 at 00:01; Status DC Clonazepam (KlonoPIN) 0.25 mg 1X ONCE PO Last administered on 02/02/19 01:47; Start 02/02/19 at 02:00; Stop 02/02/19 at 02:01; Status DC Olanzapine (ZyPREXA IM) 5 mg DAILY IM ; Start 02/04/19 at 09:00; Stop 02/04/19 at 09:00; Status DC Lorazepam (Ativan) 0.5 mg DAILY IM ; Start 02/04/19 at 09:00; Stop 02/04/19 at 09: 00; Status DC Lorazepam (Ativan) 0.5 mg DAILY IM Last administered on 02/22/19 07:15; Start 02/03/19 at 11:45 Olanzapine (ZyPREXA IM) 5 mg DAILY IM Last administered on 02/03/19 11:44; Start 02/03/19 at 11:45; Stop 02/05/19 at 18:32; Status DC Paroxetine HCl (Paxil) 20 mg DAILY PO Last administered on 02/08/19at 07:36; Start 02/05/19 at 09:00; Stop 02/08/19 at 08:59; Status DC Paroxetine HCl (Paxil) 10 mg DAILY PO Last administered on 02/10/19 12:23; Start 02/08/19 at 09:00; Stop 02/11/19 at 08:59; Status DC Paroxetine HCl (Paxil) 5 mg DAILY PO Last administered on 02/13/19 09:10; Start 02/11/19 at 09:00; Stop 02/14/19 at 08:59; Status DC Tamsulosin HCl (Flomax) 0.4 mg QHS PO Last administered on 02/22/19 20:11; Start 02/05/19 at 21:00 Dorzolamide HCl (Trusopt) 1 drop BID OU Last administered on 02/22/19 20:12; Start 02/05/19 at 21:00 Nystatin (Nystop) 15 edyta STK-MED ONCE TP Last administered on 02/05/19 21:04; Start 02/05/19 at 21:04; Stop 02/05/19 at 21:05; Status DC Nystatin (Nystop) 1 edyta BID TP Last administered on 02/22/19 20:13; Start 02/05 at 21:30 Divalproex Sodium (Depakote Sprinkles) 125 mg 1500 PO Last administered on 02/22 13:51; Start 02/17/19 at 15:00 Clonazepam (KlonoPIN) 0.25 mg TID PO Last administered on 02/22/19at 20:12; Start 02/19/19 at 14:00 Loperamide HCl (Imodium) 2 mg PRN Q15MIN PRN PO DIARRHEA; Start 02/21/19 at 22: 15 Active Scripts Active Reported Sensi-Care Perineal Cleanser (Aloe Vera/Collagen) 118 Ml Solution 1 Edyta TP BID Paroxetine Hcl 40 Mg Tablet 40 Mg PO DAILY Trazodone Hcl 50 Mg Tablet 12.5 Mg PO QHS Dorzolamide Hcl 10 Ml Drops 1 Drp OD BID Timoptic (Timolol Maleate) 10 Ml Drops 1 Drp OD BID Pilocarpine Hcl 5 Mg Tablet 1 Drop OD TID Latanoprost 2.5 Ml Drops 1 Drop OU QHS Alphagan P (Brimonidine Tartrate) 5 Ml Drops 1 Drop OD BID Pantoprazole Sodium 40 Mg Tablet.dr 40 Mg PO DAILY Cozaar (Losartan Potassium) 50 Mg Tablet 50 Mg PO DAILY Levothyroxine Sodium 75 Mcg Tablet 75 Mcg PO DAILYAC Culturelle (Lactobacillus Rhamnosus Gg) 1 Each Capsule 1 Each PO DAILY Gabapentin (Gabapentin) 100 Mg Capsule 100 Mg PO QHS Gabapentin (Gabapentin) 100 Mg Capsule 100 Mg PO BID Finasteride 5 Mg Tablet 5 Mg PO DAILY Clonidine Hcl 0.1 Mg Tablet 0.1 Mg PO PRN DAILY PRN Lipitor (Atorvastatin Calcium) 40 Mg Tablet 40 Mg PO DAILY Atenolol 100 Mg Tablet 100 Mg PO DAILY Allopurinol 300 Mg Tablet 150 Mg PO DAILY Proair Hfa Inhaler (Albuterol Sulfate) 8.5 Gm Hfa.aer.ad 1 Puff INH PRN Q6HRS PRN Multivitamins (Multivitamin) 1 Each Tablet 1 Each PO DAILY Aspirin 325 Mg Tablet 325 Mg PO DAILY Folic Acid 1 Mg Tablet 1 Mg PO DAILY Clopidogrel (Clopidogrel Bisulfate) 75 Mg Tablet 75 Mg PO DAILY [employer] Tablet (A/C/E/Zinc Ox/Cupric Ox/Lutein) 1 Each Tablet 1 Each PO BID Tylenol (Acetaminophen) 325 Mg Tablet 650 Mg PO PRN QID PRN Clonazepam 0.125 Mg Tab.rapdis 0.125 Mg PO TID Tamsulosin Hcl 0.4 Mg Cap.er.24h 0.4 Mg PO DAILY Hydrochlorothiazide Tablet (Hydrochlorothiazide) 12.5 Mg Tablet 12.5 Mg PO DAILY I have reviewed the current psychotropics carefully including drug interactions. Risk benefit ratio favors no change other than as noted in my dictated progress note. Diagnosis: Problems: (1) Medical clearance for psychiatric admission (2) Anxiety disorder (3) Dementia with behavioral disturbance (4) Dementia, vascular, with delusions (5) Dementia, vascular, with depression (6) Dementia in Alzheimer's disease with delusions (7) Dementia in Alzheimer's disease with depression (8) Impulse control disorder PAOLO THOMAS MD Feb 22, 2019 23:40
[2019-02-23] MEDS: LEVOTHYROXINE 75 MCG TABLET PO SCH (06:00)
[2019-02-23 06:28] VITALS: BP 147/68
[2019-02-23] MEDS: ALLOPURINOL 100 MG TABLET. PO SCH (08:17)
[2019-02-23] MEDS: CLOPIDOGREL BISULFATE 75 MG TABLET PO SCH (08:17)
[2019-02-23] MEDS: ASPIRIN 81 MG TAB.CHEW PO SCH (08:18)
[2019-02-23] MEDS: ATENOLOL 50 MG TABLET PO SCH (08:18)
[2019-02-23] MEDS: MULTIVITAMIN I-VITE TABLET. PO SCH ×2 (08:19→20:54)
[2019-02-23] MEDS: LIDOCAINE (700MG/PATCH) PATCH. TD SCH (08:19)
[2019-02-23] MEDS: DIVALPROEX 125 MG CAP.SPRINK PO SCH (08:19)
[2019-02-23] MEDS: BRIMONIDINE 0.2% OPHTH SOLUTION 5ML BOTTLE. OU SCH ×2 (08:20→20:53)
[2019-02-23] MEDS: PILOCARPINE 1% OPHTH SOLUTION 15ML BOTTLE. OU SCH ×3 (08:21→20:53)
[2019-02-23] MEDS: DORZOLAMIDE 2% OPHTH SOLUTION 10ML BOTTLE. OU SCH ×2 (08:21→20:54)
[2019-02-23] MEDS: TIMOLOL 0.5% OPHTH SOLUTION 5ML BOTTLE. OD SCH ×2 (08:21→20:53)
[2019-02-23] MEDS: clonazePAM 0.5 MG TABLET PO SCH ×3 (08:27→20:57)
[2019-02-23] MEDS: NYSTATIN TOPICAL POWDER 15GM BOTTLE. TP SCH ×2 (08:28→20:54)
[2019-02-23] MEDS: LANSOPRAZOLE 30 MG TAB.RAP.DR PO SCH (08:29)
[2019-02-23] MEDS: ACETAMINOPHEN 325 MG TABLET PO PRN (13:22)
--- NOTE | 2019-02-23 15:22 | NUR ---
Behavior Intervention Response and Plan: BIRP Note: Behavior: Assumed Care of patient, patient located in Patient Room at shift change. Patient exhibited the following behavior Calm, Able to Focus on Task, Compliant. Brief assessment on rounds of vital signs, medication needs, lab studies, and pain. Treatment plan problems . Intervention: Patient assessed and the following interventions initiated safety checks 15 Minute Checks Head to toe Assessment , Cognitive Assessment , Medications. Response: After interactions and interventions patient responded in the following manner, Calm, Appropriate, Cooperative. Continue to assess behaviors and condition will continue to monitor throughout the shift as needed. Patient educated on ADL's, and hand hygiene. Plan: Continue to monitor Master Treatment Plan for patient's progress toward short term goals of Improved Mood, Decreased Aggression, residential goals to return to previous living setting vs placement. Continue to assess patient for changes in above assessment. Monitor for medication needs, pain, and safety concerns. Hourly rounding performed to ensure safe environment.
[2019-02-23 17:12] VITALS: BP 158/94
[2019-02-23] MEDS: cloNIDine HCL 0.1 MG TABLET PO PRN (18:18)
[2019-02-23] MEDS: PATCH REMOVAL. MC SCH (20:34)
--- NOTE | 2019-02-23 20:48 | PN ---
DATE: 02/22/2019 PSYCHIATRIC PROGRESS NOTE This late entry 02/22/2019 covers elements not covered in my initial note. SUBJECTIVE: I met with the patient in the evening. The patient slept 5-1/4 hours previous night. He remains confused, but not agitated, aggressive. REVIEW OF SYSTEMS: Ambulation impaired, in wheelchair. No CV, , pulmonary, eye system symptoms on review. MENTAL STATUS EXAM: Oriented to himself. Insight, judgment, recent and remote memory, attention, concentration, fund of knowledge poor, consistent with his diagnosis mentioned in my initial note. PLAN: No change from initial note. MAN Modesta THOMAS MD DR: [email or web address] JOB#: [id number] / [id number]
--- NOTE | 2019-02-23 20:50 | NUR ---
Behavior Intervention Response and Plan: BIRP Note: Behavior: Assumed Care of patient, patient located in Patient Room at shift change. Patient exhibited the following behavior Calm, Compliant, Sleeping. Brief assessment on rounds of vital signs, medication needs, lab studies, and pain. Treatment plan problems . Intervention: Patient assessed and the following interventions initiated safety checks 15 Minute Checks Cognitive Assessment , Head to toe Assessment , Medications. Response: After interactions and interventions patient responded in the following manner, Calm , Compliant ,Sleeping. Continue to assess behaviors and condition will continue to monitor throughout the shift as needed. Patient educated on ADL's, and hand hygiene. Plan: Continue to monitor Master Treatment Plan for patient's progress toward short term goals of Decreased Anxiety, Decreased Agitation, custodial goals to return to previous living setting vs placement. Continue to assess patient for changes in above assessment. Monitor for medication needs, pain, and safety concerns. Hourly rounding performed to ensure safe environment.
[2019-02-23] MEDS: TAMSULOSIN 0.4 MG CAP.ER.24H. PO SCH (20:54)
[2019-02-23] MEDS: ATORVASTATIN CALCIUM 20 MG TABLET PO SCH (20:54)
[2019-02-23] MEDS: LATANOPROST 0.005% OPHTH SOLUTION 2.5ML BOTTLE. OU SCH (20:54)
[2019-02-23] MEDS: MIRTAZAPINE 15 MG TABLET PO SCH (20:54)
--- NOTE | 2019-02-23 22:47 | PDOC ---
Exam Note: Soctt Note: Please also refer to the separate dictated note~for this date of service dictated separately.~Patient seen individually. Discussed the patient with Nursing staff reviewed the chart.~Reviewed interim history and current functioning. Reviewed vital signs,~Labs/ Radiology~and current medications noted below. Continue current treatment with the changes noted in the dictated addendum note Assessment: Vital Signs: Vital Signs Date Time Temp Pulse Resp B/P (MAP) Pulse Ox O2 Delivery O2 Flow Rate FiO2 02/23/19 18:18 57 158/94 02/23/19 17:12 97.4 18 95 02/23/19 06:28 Room Air I&O Intake and Output 02/23/19 07:00 Intake Total 1080 ml Balance 1080 ml Intake Oral 1080 ml Labs: Laboratory Tests Test 02/23/19 07:37 Glucose (Fingerstick) 90 mg/dL (70-99) Current Medications: Meds: Current Medications Sodium Chloride 1,000 ml @ 1,000 mls/hr 1X ONCE IV Last administered on at 17:31; Start 01/26/19 at 17:30; Stop 01/26/19 at 18:29; Status DC Lorazepam (Ativan) 1 mg 1X ONCE IV Last administered on 01/26/19at 21:22; Start 01/26/19 at 21:15; Stop 01/26/19 at 21:23; Status DC Lorazepam (Ativan) 1 mg 1X ONCE IV Last administered on 01/26/19at 22:44; Start 01/26/19 at 22:30; Stop 01/26/19 at 22:32; Status DC Acetaminophen (Tylenol) 650 mg PRN Q6HRS PRN PO PAIN / TEMP; Start 01/27/19 at 00:00; Status Cancel Multi-Ingredient Ointment (Analgesic [place]) 1 edyta PRN QID PRN TP MUSCLE PAIN; Start 01/27/19 at 00:00 Al Hydroxide/Mg Hydroxide (Mylanta Plus Xs) 15 ml PRN AFTMEALHC PRN PO DYSPEPSIA; Start 01/27/19 at 00:00 Magnesium Hydroxide (Milk Of Magnesia) 2,400 mg PRN QHS PRN PO CONSTIPATION Last administered on 02/03/19at 08:05; Start 01/27/19 at 00:00 Clonazepam (KlonoPIN) 0.125 mg TID PO Last administered on 02/19/19 08:41; Start 01/27/19 at 09:00; Stop 02/19/19 at 12:07; Status DC Paroxetine HCl (Paxil) 40 mg DAILY PO Last administered on 02/01/19 08:27; Start 01/27/19 at 09:00; Stop 02/01/19 at 18:49; Status DC Trazodone HCl (Desyrel) 12.5 mg QHS PO ; Start 01/27/19 at 21:00; Stop 01/27/19 at 21:00; Status DC Olanzapine (ZyPREXA ZYDIS) 2.5 mg PRN Q2HR PRN PO PSYCHOSIS Last administered on 01/31/19 08:47; Start 01/27/19 at 01:00; Stop 01/31/19 at 20:14; Status DC Acetaminophen (Tylenol) 650 mg PRN QID PRN PO PAIN Last administered on 13:22; Start 01/27/19 at 01:00 Albuterol Sulfate (Ventolin) 1 mg PRN Q6HRS PRN INH SHORTNESS OF BREATH; Start 01/27/19 at 01:00 Aspirin (Hira Aspirin) 325 mg DAILYWBKFT PO Last administered on 02/01/19 08: 27; Start 01/27/19 at 08:00; Stop 02/01/19 at 13:38; Status DC Clonidine HCl (Catapres) 0.1 mg PRN DAILY PRN PO HYPERTENSION, SEE COMMENTS Last administered on 02/23/19 18:18; Start 01/27/19 at 01:00 Clopidogrel Bisulfate (Plavix) 75 mg DAILY PO Last administered on 02/23/19 08 :17; Start 01/27/19 at 09:00 Gabapentin (Neurontin) 100 mg BID94 PO Last administered on 02/05/19 08:34; Start 01/27/19 at 09:00; Stop 02/05/19 at 16:10; Status DC Gabapentin (Neurontin) 100 mg QHS PO Last administered on 02/04/19 20:17; Start 01/27/19 at 21:00; Stop 02/05/19 at 16:10; Status DC Levothyroxine Sodium (Synthroid) 75 mcg DAILY06 PO Last administered on 06:00; Start 01/27/19 at 06:00 Losartan Potassium (Cozaar) 50 mg DAILY PO Last administered on 01/27/19at 13:26 ; Start 01/27/19 at 09:00; Stop 01/27/19 at 14:32; Status DC Tamsulosin HCl (Flomax) 0.4 mg DAILY PO Last administered on 02/05/19 08:34; Start 01/27/19 at 09:00; Stop 02/05/19 at 16:10; Status DC Multivitamins/ Minerals (I-Alis) 1 tab BID PO Last administered on 02/23/19 20 :54; Start 01/27/19 at 09:00 Allopurinol (Zyloprim) 150 mg DAILY PO Last administered on 02/23/19 08:17; Start 01/27/19 at 09:00 Non-Formulary Medication (Aloe Vera/ Collagen (Sensi-Care Perineal Cleanser)) 1 edyta BID TP ; Start 01/27/19 at 09:00; Stop 01/27/19 at 09:00; Status DC Atenolol (Tenormin) 100 mg DAILY PO Last administered on 02/23/19 08:18; Start 01/27/19 at 09:00 Atorvastatin Calcium (Lipitor) 40 mg HS PO Last administered on 02/23/19 20:54 ; Start 01/27/19 at 21:00 Brimonidine Tartrate (Alphagan) 1 drop BID OD ; Start 01/27/19 at 09:00; Stop at 12:36; Status DC Dorzolamide HCl (Trusopt) 1 drop BID OD ; Start 01/27/19 at 09:00; Stop at 12:39; Status DC Finasteride (Proscar) 5 mg DAILY PO Last administered on 02/05/19 08:34; Start 01/27/19 at 09:00; Stop 02/05/19 at 16:10; Status DC Folic Acid (Folic Acid) 1 mg DAILY PO Last administered on 02/01/19 08:26; Start 01/27/19 at 09:00; Stop 02/01/19 at 13:38; Status DC Hydrochlorothiazide (Microzide) 12.5 mg DAILY PO Last administered on 13:27; Start 01/27/19 at 09:00; Stop 01/27/19 at 14:32; Status DC Lactobacillus Rhamnosus (Culturelle) 1 cap DAILY PO Last administered on 08:34; Start 01/27/19 at 09:00; Stop 02/05/19 at 16:10; Status DC Latanoprost (Xalatan) 1 drop QHS OU Last administered on 02/22/19at 20:13; Start 01/27/19 at 21:00 Multivitamins/ Calcium (Thera-M Plus) 1 tab DAILY PO Last administered on 08:26; Start 01/27/19 at 09:00; Stop 02/01/19 at 13:38; Status DC Pantoprazole Sodium (Protonix) 40 mg DAILYAC PO Last administered on 01/28/19 10:03; Start 01/27/19 at 07:30; Stop 01/29/19 at 11:24; Status DC Pilocarpine HCl (Pilocar) 1 drop TID OD ; Start 01/27/19 at 09:00; Stop at 12:38; Status DC Timolol Maleate (Timoptic 0.5% Ophth) 1 drop BID OD Last administered on 08:21; Start 01/27/19 at 07:15 Brimonidine Tartrate (Alphagan) 1 drop BID OU Last administered on 02/23/19 08 :20; Start 01/27/19 at 12:36 Pilocarpine HCl (Pilocar) 1 drop TID OU Last administered on 02/23/19 13:22; Start 01/27/19 at 12:38 Dorzolamide HCl (Trusopt) 1 drop TID OU Last administered on 02/05/19at 14:00; Start 01/27/19 at 14:00; Stop 02/05/19 at 16:11; Status DC Olanzapine (ZyPREXA ZYDIS) 2.5 mg PRN Q2HR PRN PO PSYCHOSIS; Start 01/27/19 at 17:30; Stop 01/29/19 at 17:13; Status DC Trazodone HCl (Desyrel) 50 mg PRN QHS PRN PO INSOMNIA, MAY REPEAT X1 Last administered on 02/21/19 23:17; Start 01/27/19 at 17:30 Mirtazapine (Remeron) 7.5 mg QHS PO Last administered on 01/31/19 19:55; Start 01/28/19 at 21:00; Stop 02/01/19 at 18:50; Status DC Lansoprazole (Prevacid) 30 mg DAILYAC PO Last administered on 02/23/19 08:29; Start 01/30/19 at 07:30 Tuberculin PPD (Tubersol) 0.1 ml 1X ONCE ID Last administered on 01/30/19 15: 14; Start 01/30/19 at 14:45; Stop 01/30/19 at 14:52; Status DC Lidocaine (Lidoderm) 1 patch DAILY TD Last administered on 02/23/19 08:19; Start 01/31/19 at 18:00 Miscellaneous (Lidoderm Patch Removal) 1 ea QHS MC Last administered on 20:34; Start 02/01/19 at 03:00 Olanzapine (ZyPREXA ZYDIS) 5 mg PRN Q2HR PRN PO PSYCHOSIS Last administered on 02/18/19 14:12; Start 01/31/19 at 20:15 Aspirin (Children'S Aspirin) 81 mg DAILYWBKFT PO Last administered on 08:18; Start 02/02/19 at 08:00 Paroxetine HCl (Paxil) 30 mg DAILY PO Last administered on 02/04/19 11:29; Start 02/02/19 at 09:00; Stop 02/04/19 at 12:49; Status DC Mirtazapine (Remeron) 15 mg QHS PO Last administered on 02/23/19 20:54; Start 02/01/19 at 21:00 Clonazepam (KlonoPIN) 0.25 mg 1X ONCE PO Last administered on 02/01/19 23:48; Start 02/02/19 at 00:00; Stop 02/02/19 at 00:01; Status DC Clonazepam (KlonoPIN) 0.25 mg 1X ONCE PO Last administered on 02/02/19 01:47; Start 02/02/19 at 02:00; Stop 02/02/19 at 02:01; Status DC Olanzapine (ZyPREXA IM) 5 mg DAILY IM ; Start 02/04/19 at 09:00; Stop 02/04/19 at 09:00; Status DC Lorazepam (Ativan) 0.5 mg DAILY IM ; Start 02/04/19 at 09:00; Stop 02/04/19 at 09: 00; Status DC Lorazepam (Ativan) 0.5 mg DAILY IM Last administered on 02/23/19 08:28; Start 02/03/19 at 11:45 Olanzapine (ZyPREXA IM) 5 mg DAILY IM Last administered on 02/03/19 11:44; Start 02/03/19 at 11:45; Stop 02/05/19 at 18:32; Status DC Paroxetine HCl (Paxil) 20 mg DAILY PO Last administered on 02/08/19 07:36; Start 02/05/19 at 09:00; Stop 02/08/19 at 08:59; Status DC Paroxetine HCl (Paxil) 10 mg DAILY PO Last administered on 02/10/19 12:23; Start 02/08/19 at 09:00; Stop 02/11/19 at 08:59; Status DC Paroxetine HCl (Paxil) 5 mg DAILY PO Last administered on 02/13/19 09:10; Start 02/11/19 at 09:00; Stop 02/14/19 at 08:59; Status DC Tamsulosin HCl (Flomax) 0.4 mg QHS PO Last administered on 02/23/19 20:54; Start 02/05/19 at 21:00 Dorzolamide HCl (Trusopt) 1 drop BID OU Last administered on 02/23/19 08:21; Start 02/05/19 at 21:00 Nystatin (Nystop) 15 edyta STK-MED ONCE TP Last administered on 02/05/19 21:04; Start 02/05/19 at 21:04; Stop 02/05/19 at 21:05; Status DC Nystatin (Nystop) 1 edyta BID TP Last administered on 02/23/19 20:54; Start 02/05 at 21:30 Divalproex Sodium (Depakote Sprinkles) 125 mg 1500 PO Last administered on 02/23 08:19; Start 02/17/19 at 15:00 Clonazepam (KlonoPIN) 0.25 mg TID PO Last administered on 02/23/19at 20:57; Start 02/19/19 at 14:00 Loperamide HCl (Imodium) 2 mg PRN Q15MIN PRN PO DIARRHEA; Start 02/21/19 at 22: 15 Active Scripts Active Reported Sensi-Care Perineal Cleanser (Aloe Vera/Collagen) 118 Ml Solution 1 Edyta TP BID Paroxetine Hcl 40 Mg Tablet 40 Mg PO DAILY Trazodone Hcl 50 Mg Tablet 12.5 Mg PO QHS Dorzolamide Hcl 10 Ml Drops 1 Drp OD BID Timoptic (Timolol Maleate) 10 Ml Drops 1 Drp OD BID Pilocarpine Hcl 5 Mg Tablet 1 Drop OD TID Latanoprost 2.5 Ml Drops 1 Drop OU QHS Alphagan P (Brimonidine Tartrate) 5 Ml Drops 1 Drop OD BID Pantoprazole Sodium 40 Mg Tablet.dr 40 Mg PO DAILY Cozaar (Losartan Potassium) 50 Mg Tablet 50 Mg PO DAILY Levothyroxine Sodium 75 Mcg Tablet 75 Mcg PO DAILYAC Culturelle (Lactobacillus Rhamnosus Gg) 1 Each Capsule 1 Each PO DAILY Gabapentin (Gabapentin) 100 Mg Capsule 100 Mg PO QHS Gabapentin (Gabapentin) 100 Mg Capsule 100 Mg PO BID Finasteride 5 Mg Tablet 5 Mg PO DAILY Clonidine Hcl 0.1 Mg Tablet 0.1 Mg PO PRN DAILY PRN Lipitor (Atorvastatin Calcium) 40 Mg Tablet 40 Mg PO DAILY Atenolol 100 Mg Tablet 100 Mg PO DAILY Allopurinol 300 Mg Tablet 150 Mg PO DAILY Proair Hfa Inhaler (Albuterol Sulfate) 8.5 Gm Hfa.aer.ad 1 Puff INH PRN Q6HRS PRN Multivitamins (Multivitamin) 1 Each Tablet 1 Each PO DAILY Aspirin 325 Mg Tablet 325 Mg PO DAILY Folic Acid 1 Mg Tablet 1 Mg PO DAILY Clopidogrel (Clopidogrel Bisulfate) 75 Mg Tablet 75 Mg PO DAILY [employer] [facility] Tablet (A/C/E/Zinc Ox/Cupric Ox/Lutein) 1 Each Tablet 1 Each PO BID Tylenol (Acetaminophen) 325 Mg Tablet 650 Mg PO PRN QID PRN Clonazepam 0.125 Mg Tab.rapdis 0.125 Mg PO TID Tamsulosin Hcl 0.4 Mg Cap.er.24h 0.4 Mg PO DAILY Hydrochlorothiazide Tablet (Hydrochlorothiazide) 12.5 Mg Tablet 12.5 Mg PO DAILY I have reviewed the current psychotropics carefully including drug interactions. Risk benefit ratio favors no change other than as noted in my dictated progress note. Diagnosis: Problems: (1) Medical clearance for psychiatric admission (2) Anxiety disorder (3) Dementia with behavioral disturbance (4) Dementia, vascular, with delusions (5) Dementia, vascular, with depression (6) Dementia in Alzheimer's disease with delusions (7) Dementia in Alzheimer's disease with depression (8) Impulse control disorder PAOLO THOMAS MD Feb 23, 2019 22:47
[2019-02-24] MEDS: LEVOTHYROXINE 75 MCG TABLET PO SCH (05:54)
[2019-02-24 06:07] VITALS: BP 129/68
[2019-02-24] MEDS: CLOPIDOGREL BISULFATE 75 MG TABLET PO SCH (07:11)
[2019-02-24] MEDS: LANSOPRAZOLE 30 MG TAB.RAP.DR PO SCH (07:12)
[2019-02-24] MEDS: ATENOLOL 50 MG TABLET PO SCH (07:12)
[2019-02-24] MEDS: LIDOCAINE (700MG/PATCH) PATCH. TD SCH (07:13)
[2019-02-24] MEDS: ALLOPURINOL 100 MG TABLET. PO SCH (07:13)
[2019-02-24] MEDS: MULTIVITAMIN I-VITE TABLET. PO SCH ×2 (07:13→20:27)
[2019-02-24] MEDS: ASPIRIN 81 MG TAB.CHEW PO SCH (07:13)
[2019-02-24] MEDS: NYSTATIN TOPICAL POWDER 15GM BOTTLE. TP SCH ×2 (07:14→20:27)
[2019-02-24] MEDS: TIMOLOL 0.5% OPHTH SOLUTION 5ML BOTTLE. OD SCH ×2 (07:14→20:31)
[2019-02-24] MEDS: PILOCARPINE 1% OPHTH SOLUTION 15ML BOTTLE. OU SCH ×3 (07:14→20:30)
[2019-02-24] MEDS: BRIMONIDINE 0.2% OPHTH SOLUTION 5ML BOTTLE. OU SCH ×2 (07:15→20:30)
[2019-02-24] MEDS: DORZOLAMIDE 2% OPHTH SOLUTION 10ML BOTTLE. OU SCH ×2 (07:15→20:33)
[2019-02-24] MEDS: clonazePAM 0.5 MG TABLET PO SCH ×3 (07:21→20:30)
--- NOTE | 2019-02-24 07:42 | RAD ---
Portable chest, 02/24/2019: HISTORY: Left-sided chest pain, altered mental status Comparison is made to a study from 02/12/2019. The heart size is within normal limits. Coronary artery radiopacities are present compatible with calcifications and/or a stent. There is calcific plaquing of the aorta. There is scarring over the pulmonary apices. Minimal streaky left basilar atelectasis/infiltrate has developed partially obscuring the hemidiaphragm. No definite pleural fluid or pneumothorax is evident. IMPRESSION: Minimal left basilar atelectasis/infiltrate. Electronically signed by: Jayy Lawler MD (02/24/2019 7:39 AM) [facility]
[2019-02-24] MEDS: DIVALPROEX 125 MG CAP.SPRINK PO SCH (15:26)
--- NOTE | 2019-02-24 15:32 | NUR ---
Nursing Note: Pt compliant w/ medications hidden in pudding. Dr. Francois made aware of chest X-ray results, C-diff results negative. Pt is to wear heel medix boots when in bed.
--- NOTE | 2019-02-24 16:17 | NUR ---
Wound Care Wound care follow up for multiple wounds. Pt has multiple traumatic wounds to bilateral feet/toes from kicking doors, etc. Cleansed all wounds, applied iodoflex and foam or ABD and kerlix with hypafix tape to all open wounds. Coccyx was still slightly reddened from IAD, cleansed area and applied Calazime cream, recommend to reapply BID and PRN. Pt has pressure ulcer to right heel that remains unstageable at this time. All open wounds are measuring smaller at this time. No other wounds noted on full skin inspection. Assisted pt with going to restroom, liquid stool noted. Pt left in bed with heel medix boots in place. Discussed POC with Caridad HINTON, instruction sheet left. WC will continue to follow for possible changes.
[2019-02-24 16:22] VITALS: BP 132/66
--- NOTE | 2019-02-24 16:47 | NUR ---
Nursing Note: Daughter arrived for visit, but pt was sleeping. Spoke w/ her about Wound Care team assessing and changing pt's wound bandages. Daughter asked if pt's wounds were at a level one or two because that is the level at which they must be for pt to be accepted to the skilled facility that he is scheduled to go. Reminded daughter that it was recommended that pt be transferred to [facility] for wound care and the family had decided against. Will make Ioana pt's SW, aware of this requirement.
[2019-02-24] MEDS: PATCH REMOVAL. MC SCH (20:27)
[2019-02-24] MEDS: MIRTAZAPINE 15 MG TABLET PO SCH (20:27)
[2019-02-24] MEDS: TAMSULOSIN 0.4 MG CAP.ER.24H. PO SCH (20:27)
[2019-02-24] MEDS: ATORVASTATIN CALCIUM 20 MG TABLET PO SCH (20:27)
[2019-02-24] MEDS: LATANOPROST 0.005% OPHTH SOLUTION 2.5ML BOTTLE. OU SCH (20:31)
--- NOTE | 2019-02-24 22:19 | PN ---
DATE: 02/23/2019 PSYCHIATRIC PROGRESS NOTE This late entry 02/23/2019 covers elements not covered in my initial note. SUBJECTIVE: I met with the patient in the evening. The patient slept 7-1/4 hours previous night. He has been more redirectable, less anxious, less labile in his mood. REVIEW OF SYSTEMS: No CV, , pulmonary, eye, ENT system symptoms on review. Reliability poor. He is hard of hearing. MENTAL STATUS EXAM: Oriented to himself. Insight, judgment, recent and remote memory, attention, concentration, fund of knowledge poor, consistent with his diagnosis mentioned in my initial note. PLAN: No change from initial note. MAN Modesta THOMAS MD DR: [email or web address]/[email or web address] JOB#: [id number] / [id number]
--- NOTE | 2019-02-24 23:01 | PDOC ---
Exam Note: Scott Note: Please also refer to the separate dictated note~for this date of service dictated separately.~Patient seen individually. Discussed the patient with Nursing staff reviewed the chart.~Reviewed interim history and current functioning. Reviewed vital signs,~Labs/ Radiology~and current medications noted below. Continue current treatment with the changes noted in the dictated addendum note Assessment: Vital Signs: Vital Signs Date Time Temp Pulse Resp B/P (MAP) Pulse Ox O2 Delivery O2 Flow Rate FiO2 02/24/19 16:22 98.7 68 16 132/66 (88) 95 Room Air I&O Intake and Output 02/24/19 07:00 Intake Total 800 ml Balance 800 ml Intake Oral 800 ml # Bowel Movements 1 Labs: Laboratory Tests Test 02/24/19 01:31 02/24/19 07:32 Clostridium difficile Toxin B Gene Negative (Negative) Glucose (Fingerstick) 110 mg/dL (70-99) H Current Medications: Meds: Current Medications Sodium Chloride 1,000 ml @ 1,000 mls/hr 1X ONCE IV Last administered on at 17:31; Start 01/26/19 at 17:30; Stop 01/26/19 at 18:29; Status DC Lorazepam (Ativan) 1 mg 1X ONCE IV Last administered on 01/26/19at 21:22; Start 01/26/19 at 21:15; Stop 01/26/19 at 21:23; Status DC Lorazepam (Ativan) 1 mg 1X ONCE IV Last administered on 01/26/19at 22:44; Start 01/26/19 at 22:30; Stop 01/26/19 at 22:32; Status DC Acetaminophen (Tylenol) 650 mg PRN Q6HRS PRN PO PAIN / TEMP; Start 01/27/19 at 00:00; Status Cancel Multi-Ingredient Ointment (Analgesic Anderson) 1 edyta PRN QID PRN TP MUSCLE PAIN; Start 01/27/19 at 00:00 Al Hydroxide/Mg Hydroxide (Mylanta Plus Xs) 15 ml PRN AFTMEALHC PRN PO DYSPEPSIA; Start 01/27/19 at 00:00 Magnesium Hydroxide (Milk Of Magnesia) 2,400 mg PRN QHS PRN PO CONSTIPATION Last administered on 02/03/19at 08:05; Start 01/27/19 at 00:00 Clonazepam (KlonoPIN) 0.125 mg TID PO Last administered on 02/19/19 08:41; Start 01/27/19 at 09:00; Stop 02/19/19 at 12:07; Status DC Paroxetine HCl (Paxil) 40 mg DAILY PO Last administered on 02/01/19 08:27; Start 01/27/19 at 09:00; Stop 02/01/19 at 18:49; Status DC Trazodone HCl (Desyrel) 12.5 mg QHS PO ; Start 01/27/19 at 21:00; Stop 01/27/19 at 21:00; Status DC Olanzapine (ZyPREXA ZYDIS) 2.5 mg PRN Q2HR PRN PO PSYCHOSIS Last administered on 01/31/19 08:47; Start 01/27/19 at 01:00; Stop 01/31/19 at 20:14; Status DC Acetaminophen (Tylenol) 650 mg PRN QID PRN PO PAIN Last administered on 13:22; Start 01/27/19 at 01:00 Albuterol Sulfate (Ventolin) 1 mg PRN Q6HRS PRN INH SHORTNESS OF BREATH; Start 01/27/19 at 01:00 Aspirin (Hira Aspirin) 325 mg DAILYWBKFT PO Last administered on 02/01/19 08: 27; Start 01/27/19 at 08:00; Stop 02/01/19 at 13:38; Status DC Clonidine HCl (Catapres) 0.1 mg PRN DAILY PRN PO HYPERTENSION, SEE COMMENTS Last administered on 02/23/19 18:18; Start 01/27/19 at 01:00 Clopidogrel Bisulfate (Plavix) 75 mg DAILY PO Last administered on 02/24/19 07 :11; Start 01/27/19 at 09:00 Gabapentin (Neurontin) 100 mg BID94 PO Last administered on 02/05/19at 08:34; Start 01/27/19 at 09:00; Stop 02/05/19 at 16:10; Status DC Gabapentin (Neurontin) 100 mg QHS PO Last administered on 02/04/19 20:17; Start 01/27/19 at 21:00; Stop 02/05/19 at 16:10; Status DC Levothyroxine Sodium (Synthroid) 75 mcg DAILY06 PO Last administered on 05:54; Start 01/27/19 at 06:00 Losartan Potassium (Cozaar) 50 mg DAILY PO Last administered on 01/27/19 13:26 ; Start 01/27/19 at 09:00; Stop 01/27/19 at 14:32; Status DC Tamsulosin HCl (Flomax) 0.4 mg DAILY PO Last administered on 02/05/19 08:34; Start 01/27/19 at 09:00; Stop 02/05/19 at 16:10; Status DC Multivitamins/ Minerals (I-Alis) 1 tab BID PO Last administered on 02/24/19 20 :27; Start 01/27/19 at 09:00 Allopurinol (Zyloprim) 150 mg DAILY PO Last administered on 02/24/19at 07:13; Start 01/27/19 at 09:00 Non-Formulary Medication (Aloe Vera/ Collagen (Sensi-Care Perineal Cleanser)) 1 edyta BID TP ; Start 01/27/19 at 09:00; Stop 01/27/19 at 09:00; Status DC Atenolol (Tenormin) 100 mg DAILY PO Last administered on 02/24/19at 07:12; Start 01/27/19 at 09:00 Atorvastatin Calcium (Lipitor) 40 mg HS PO Last administered on 02/24/19at 20:27 ; Start 01/27/19 at 21:00 Brimonidine Tartrate (Alphagan) 1 drop BID OD ; Start 01/27/19 at 09:00; Stop at 12:36; Status DC Dorzolamide HCl (Trusopt) 1 drop BID OD ; Start 01/27/19 at 09:00; Stop at 12:39; Status DC Finasteride (Proscar) 5 mg DAILY PO Last administered on 02/05/19 08:34; Start 01/27/19 at 09:00; Stop 02/05/19 at 16:10; Status DC Folic Acid (Folic Acid) 1 mg DAILY PO Last administered on 02/01/19 08:26; Start 01/27/19 at 09:00; Stop 02/01/19 at 13:38; Status DC Hydrochlorothiazide (Microzide) 12.5 mg DAILY PO Last administered on 13:27; Start 01/27/19 at 09:00; Stop 01/27/19 at 14:32; Status DC Lactobacillus Rhamnosus (Culturelle) 1 cap DAILY PO Last administered on 08:34; Start 01/27/19 at 09:00; Stop 02/05/19 at 16:10; Status DC Latanoprost (Xalatan) 1 drop QHS OU Last administered on 02/24/19at 20:31; Start 01/27/19 at 21:00 Multivitamins/ Calcium (Thera-M Plus) 1 tab DAILY PO Last administered on 08:26; Start 01/27/19 at 09:00; Stop 02/01/19 at 13:38; Status DC Pantoprazole Sodium (Protonix) 40 mg DAILYAC PO Last administered on 01/28/19at 10:03; Start 01/27/19 at 07:30; Stop 01/29/19 at 11:24; Status DC Pilocarpine HCl (Pilocar) 1 drop TID OD ; Start 01/27/19 at 09:00; Stop at 12:38; Status DC Timolol Maleate (Timoptic 0.5% Ophth) 1 drop BID OD Last administered on at 20:31; Start 01/27/19 at 07:15 Brimonidine Tartrate (Alphagan) 1 drop BID OU Last administered on 02/24/19 20 :30; Start 01/27/19 at 12:36 Pilocarpine HCl (Pilocar) 1 drop TID OU Last administered on 02/24/19at 20:30; Start 01/27/19 at 12:38 Dorzolamide HCl (Trusopt) 1 drop TID OU Last administered on 02/05/19at 14:00; Start 01/27/19 at 14:00; Stop 02/05/19 at 16:11; Status DC Olanzapine (ZyPREXA ZYDIS) 2.5 mg PRN Q2HR PRN PO PSYCHOSIS; Start 01/27/19 at 17:30; Stop 01/29/19 at 17:13; Status DC Trazodone HCl (Desyrel) 50 mg PRN QHS PRN PO INSOMNIA, MAY REPEAT X1 Last administered on 02/21/19 23:17; Start 01/27/19 at 17:30 Mirtazapine (Remeron) 7.5 mg QHS PO Last administered on 01/31/19 19:55; Start 01/28/19 at 21:00; Stop 02/01/19 at 18:50; Status DC Lansoprazole (Prevacid) 30 mg DAILYAC PO Last administered on 02/24/19 07:12; Start 01/30/19 at 07:30 Tuberculin PPD (Tubersol) 0.1 ml 1X ONCE ID Last administered on 01/30/19 15: 14; Start 01/30/19 at 14:45; Stop 01/30/19 at 14:52; Status DC Lidocaine (Lidoderm) 1 patch DAILY TD Last administered on 02/24/19 07:13; Start 01/31/19 at 18:00 Miscellaneous (Lidoderm Patch Removal) 1 ea QHS MC Last administered on 20:27; Start 02/01/19 at 03:00 Olanzapine (ZyPREXA ZYDIS) 5 mg PRN Q2HR PRN PO PSYCHOSIS Last administered on 02/18/19 14:12; Start 01/31/19 at 20:15 Aspirin (Children'S Aspirin) 81 mg DAILYWBKFT PO Last administered on 07:13; Start 02/02/19 at 08:00 Paroxetine HCl (Paxil) 30 mg DAILY PO Last administered on 02/04/19 11:29; Start 02/02/19 at 09:00; Stop 02/04/19 at 12:49; Status DC Mirtazapine (Remeron) 15 mg QHS PO Last administered on 02/24/19 20:27; Start 02/01/19 at 21:00 Clonazepam (KlonoPIN) 0.25 mg 1X ONCE PO Last administered on 02/01/19 23:48; Start 02/02/19 at 00:00; Stop 02/02/19 at 00:01; Status DC Clonazepam (KlonoPIN) 0.25 mg 1X ONCE PO Last administered on 02/02/19 01:47; Start 02/02/19 at 02:00; Stop 02/02/19 at 02:01; Status DC Olanzapine (ZyPREXA IM) 5 mg DAILY IM ; Start 02/04/19 at 09:00; Stop 02/04/19 at 09:00; Status DC Lorazepam (Ativan) 0.5 mg DAILY IM ; Start 02/04/19 at 09:00; Stop 02/04/19 at 09: 00; Status DC Lorazepam (Ativan) 0.5 mg DAILY IM Last administered on 02/24/19at 07:21; Start 02/03/19 at 11:45 Olanzapine (ZyPREXA IM) 5 mg DAILY IM Last administered on 02/03/19at 11:44; Start 02/03/19 at 11:45; Stop 02/05/19 at 18:32; Status DC Paroxetine HCl (Paxil) 20 mg DAILY PO Last administered on 02/08/19at 07:36; Start 02/05/19 at 09:00; Stop 02/08/19 at 08:59; Status DC Paroxetine HCl (Paxil) 10 mg DAILY PO Last administered on 02/10/19at 12:23; Start 02/08/19 at 09:00; Stop 02/11/19 at 08:59; Status DC Paroxetine HCl (Paxil) 5 mg DAILY PO Last administered on 02/13/19 09:10; Start 02/11/19 at 09:00; Stop 02/14/19 at 08:59; Status DC Tamsulosin HCl (Flomax) 0.4 mg QHS PO Last administered on 02/24/19 20:27; Start 02/05/19 at 21:00 Dorzolamide HCl (Trusopt) 1 drop BID OU Last administered on 02/24/19 20:33; Start 02/05/19 at 21:00 Nystatin (Nystop) 15 edyta STK-MED ONCE TP Last administered on 02/05/19 21:04; Start 02/05/19 at 21:04; Stop 02/05/19 at 21:05; Status DC Nystatin (Nystop) 1 edyta BID TP Last administered on 02/24/19 20:27; Start 02/05 at 21:30 Divalproex Sodium (Depakote Sprinkles) 125 mg 1500 PO Last administered on 3/26 /19at 15:26; Start 02/17/19 at 15:00 Clonazepam (KlonoPIN) 0.25 mg TID PO Last administered on 02/24/19at 20:30; Start 02/19/19 at 14:00 Loperamide HCl (Imodium) 2 mg PRN Q15MIN PRN PO DIARRHEA; Start 02/21/19 at 22: 15 Active Scripts Active Reported Sensi-Care Perineal Cleanser (Aloe Vera/Collagen) 118 Ml Solution 1 Edyta TP BID Paroxetine Hcl 40 Mg Tablet 40 Mg PO DAILY Trazodone Hcl 50 Mg Tablet 12.5 Mg PO QHS Dorzolamide Hcl 10 Ml Drops 1 Drp OD BID Timoptic (Timolol Maleate) 10 Ml Drops 1 Drp OD BID Pilocarpine Hcl 5 Mg Tablet 1 Drop OD TID Latanoprost 2.5 Ml Drops 1 Drop OU QHS Alphagan P (Brimonidine Tartrate) 5 Ml Drops 1 Drop OD BID Pantoprazole Sodium 40 Mg Tablet.dr 40 Mg PO DAILY Cozaar (Losartan Potassium) 50 Mg Tablet 50 Mg PO DAILY Levothyroxine Sodium 75 Mcg Tablet 75 Mcg PO DAILYAC Culturelle (Lactobacillus Rhamnosus Gg) 1 Each Capsule 1 Each PO DAILY Gabapentin (Gabapentin) 100 Mg Capsule 100 Mg PO QHS Gabapentin (Gabapentin) 100 Mg Capsule 100 Mg PO BID Finasteride 5 Mg Tablet 5 Mg PO DAILY Clonidine Hcl 0.1 Mg Tablet 0.1 Mg PO PRN DAILY PRN Lipitor (Atorvastatin Calcium) 40 Mg Tablet 40 Mg PO DAILY Atenolol 100 Mg Tablet 100 Mg PO DAILY Allopurinol 300 Mg Tablet 150 Mg PO DAILY Proair Hfa Inhaler (Albuterol Sulfate) 8.5 Gm Hfa.aer.ad 1 Puff INH PRN Q6HRS PRN Multivitamins (Multivitamin) 1 Each Tablet 1 Each PO DAILY Aspirin 325 Mg Tablet 325 Mg PO DAILY Folic Acid 1 Mg Tablet 1 Mg PO DAILY Clopidogrel (Clopidogrel Bisulfate) 75 Mg Tablet 75 Mg PO DAILY [employer] Tablet (A/C/E/Zinc Ox/Cupric Ox/Lutein) 1 Each Tablet 1 Each PO BID Tylenol (Acetaminophen) 325 Mg Tablet 650 Mg PO PRN QID PRN Clonazepam 0.125 Mg Tab.rapdis 0.125 Mg PO TID Tamsulosin Hcl 0.4 Mg Cap.er.24h 0.4 Mg PO DAILY Hydrochlorothiazide Tablet (Hydrochlorothiazide) 12.5 Mg Tablet 12.5 Mg PO DAILY I have reviewed the current psychotropics carefully including drug interactions. Risk benefit ratio favors no change other than as noted in my dictated progress note. Diagnosis: Problems: (1) Medical clearance for psychiatric admission (2) Anxiety disorder (3) Dementia with behavioral disturbance (4) Dementia, vascular, with delusions (5) Dementia, vascular, with depression (6) Dementia in Alzheimer's disease with delusions (7) Dementia in Alzheimer's disease with depression (8) Impulse control disorder PAOLO THOMAS MD Feb 24, 2019 23:01
[2019-02-25] MEDS: ACETAMINOPHEN 325 MG TABLET PO PRN (02:51)
[2019-02-25] MEDS: LEVOTHYROXINE 75 MCG TABLET PO SCH (06:01)
[2019-02-25 06:07] VITALS: BP 163/74
[2019-02-25] MEDS: ALLOPURINOL 100 MG TABLET. PO SCH (08:02)
[2019-02-25] MEDS: ASPIRIN 81 MG TAB.CHEW PO SCH (08:03)
[2019-02-25] MEDS: MULTIVITAMIN I-VITE TABLET. PO SCH ×2 (08:03→19:42)
[2019-02-25] MEDS: CLOPIDOGREL BISULFATE 75 MG TABLET PO SCH (08:03)
[2019-02-25] MEDS: LANSOPRAZOLE 30 MG TAB.RAP.DR PO SCH (08:03)
[2019-02-25] MEDS: ATENOLOL 50 MG TABLET PO SCH (08:04)
[2019-02-25] MEDS: LIDOCAINE (700MG/PATCH) PATCH. TD SCH (08:05)
[2019-02-25] MEDS: TIMOLOL 0.5% OPHTH SOLUTION 5ML BOTTLE. OD SCH ×2 (08:06→19:41)
[2019-02-25] MEDS: BRIMONIDINE 0.2% OPHTH SOLUTION 5ML BOTTLE. OU SCH ×2 (08:07→19:41)
[2019-02-25] MEDS: PILOCARPINE 1% OPHTH SOLUTION 15ML BOTTLE. OU SCH ×3 (08:08→19:41)
[2019-02-25] MEDS: DORZOLAMIDE 2% OPHTH SOLUTION 10ML BOTTLE. OU SCH ×2 (08:08→19:40)
[2019-02-25] MEDS: NYSTATIN TOPICAL POWDER 15GM BOTTLE. TP SCH ×2 (08:11→19:42)
[2019-02-25] MEDS: clonazePAM 0.5 MG TABLET PO SCH ×3 (08:12→19:44)
--- NOTE | 2019-02-25 09:15 | NUR ---
Behavior Intervention Response and Plan: BIRP Note: Behavior: Assumed Care of patient, patient located in Patient Room at shift change. Patient exhibited the following behavior Restless, Disorganized, Compulsive. Brief assessment on rounds of vital signs, medication needs, lab studies, and pain. Treatment plan problems 1 & 2. Intervention: Patient assessed and the following interventions initiated safety checks 15 Minute Checks Cognitive Assessment , Head to toe Assessment , Medications. Response: After interactions and interventions patient responded in the following manner, Calm , Disorganized ,Cooperative. Continue to assess behaviors and condition will continue to monitor throughout the shift as needed. Patient educated on ADL's, and hand hygiene. 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 Continue to assess patient for changes in above assessment. Monitor for medication needs, pain, and safety concerns. Hourly rounding performed to ensure safe environment.
[2019-02-25 09:19] LABS: BASO # 0.1 x10^3/uL (0.0-0.2); BASO % 1 % (0-3); EOS # 0.6 x10^3/uL (0.0-0.7); EOS % 7 % (0-3); HEMATOCRIT 31.5 % (39.0-53.0); HEMOGLOBIN 10.3 g/dL (13.0-17.5); LYMPH # 1.9 x10^3/uL (1.0-4.8); LYMPH % 23 % (24-48); MEAN CORPUSCULAR HEMOGLOBIN 33 pg (25-35); MEAN CORPUSCULAR HGB CONC 33 g/dL (31-37); MEAN CORPUSCULAR VOLUME 101 fL (79-100); MONO # 0.9 x10^3/uL (0.0-1.1); MONO % 10 % (0-9); NEUT # 5.1 x10^3uL (1.8-7.7); NEUT % 60 % (31-73); PLATELET COUNT 263 x10^3/uL (140-400); RED BLOOD COUNT 3.12 x10^6/uL (4.30-5.70); RED CELL DISTRIBUTION WIDTH 16.4 % (11.5-14.5); WHITE BLOOD COUNT 8.5 x10^3/uL (4.0-11.0)
[2019-02-25 09:33] LABS: ALBUMIN 2.2 g/dL (3.4-5.0); ALBUMIN/GLOBULIN RATIO 0.6 (1.0-1.7); CALCIUM 8.4 mg/dL (8.5-10.1); CREATININE 1.2 mg/dL (0.7-1.3); POTASSIUM 3.6 mmol/L (3.5-5.1); TOTAL BILIRUBIN 0.3 mg/dL (0.2-1.0); TOTAL PROTEIN 5.7 g/dL (6.4-8.2)
[2019-02-25] MEDS: DIVALPROEX 125 MG CAP.SPRINK PO SCH (14:53)
[2019-02-25 16:08] VITALS: BP 156/55
[2019-02-25] MEDS: PATCH REMOVAL. MC SCH (19:40)
--- NOTE | 2019-02-25 19:40 | NUR ---
Behavior Intervention Response and Plan: BIRP Note: Behavior: Assumed Care of patient, patient located in Patient Room at shift change. Patient exhibited the following behavior Calm, Compliant, Sleeping. Brief assessment on rounds of vital signs, medication needs, lab studies, and pain. Treatment plan problems . Intervention: Patient assessed and the following interventions initiated safety checks 15 Minute Checks Cognitive Assessment , Head to toe Assessment , Medications. Response: After interactions and interventions patient responded in the following manner, Calm , Compliant ,Sleeping. Continue to assess behaviors and condition will continue to monitor throughout the shift as needed. Patient educated on ADL's, and hand hygiene. Plan: Continue to monitor Master Treatment Plan for patient's progress toward short term goals of Decreased Anxiety, Decreased Agitation, group home goals to return to previous living setting vs placement. Continue to assess patient for changes in above assessment. Monitor for medication needs, pain, and safety concerns. Hourly rounding performed to ensure safe environment.
[2019-02-25] MEDS: LATANOPROST 0.005% OPHTH SOLUTION 2.5ML BOTTLE. OU SCH (19:41)
[2019-02-25] MEDS: TAMSULOSIN 0.4 MG CAP.ER.24H. PO SCH (19:42)
[2019-02-25] MEDS: MIRTAZAPINE 15 MG TABLET PO SCH (19:42)
[2019-02-25] MEDS: ATORVASTATIN CALCIUM 20 MG TABLET PO SCH (19:42)
--- NOTE | 2019-02-25 22:50 | PN ---
DATE: 02/24/2019 This late entry for 02/24/2019 covers elements not covered in my initial note. SUBJECTIVE: I met with the patient in the evening. The patient slept 7-3/4 hours previous night. He remains confused, cooperative, better if he sleeps in the morning. C. diff is negative. REVIEW OF SYSTEMS: No CV, , pulmonary, eye system symptoms on review. Reliability poor. Gait unsteady in wheelchair. MENTAL STATUS EXAM: Oriented to himself. Insight, judgment, recent and remote memory, attention, concentration, fund of knowledge poor, consistent with his diagnosis mentioned in my initial note. PLAN: No change from initial note. MAN Modesta THOMAS MD DR: [email or web address] JOB#: [id number] / [id number]
--- NOTE | 2019-02-25 23:05 | PDOC ---
Exam Note: Scott Note: Please also refer to the separate dictated note~for this date of service dictated separately.~Patient seen individually. Discussed the patient with Nursing staff reviewed the chart.~Reviewed interim history and current functioning. Reviewed vital signs,~Labs/ Radiology~and current medications noted below. Continue current treatment with the changes noted in the dictated addendum note Assessment: Vital Signs: Vital Signs Date Time Temp Pulse Resp B/P (MAP) Pulse Ox O2 Delivery O2 Flow Rate FiO2 02/25/19 16:08 97.4 62 18 156/55 (88) 99 Room Air I&O Intake and Output 02/25/19 06:59 Intake Total 600 ml Balance 600 ml Intake Oral 600 ml # Bowel Movements 1 Labs: Laboratory Tests Test 02/25/19 07:14 02/25/19 09:13 Glucose (Fingerstick) 98 mg/dL (70-99) White Blood Count 8.5 x10^3/uL (4.0-11.0) Red Blood Count 3.12 x10^6/uL (4.30-5.70) L Hemoglobin 10.3 g/dL (13.0-17.5) L Hematocrit 31.5 % (39.0-53.0) L Mean Corpuscular Volume 101 fL (79-100) H Mean Corpuscular Hemoglobin 33 pg (25-35) Mean Corpuscular Hemoglobin Concent 33 g/dL (31-37) Red Cell Distribution Width 16.4 % (11.5-14.5) H Platelet Count 263 x10^3/uL (140-400) Neutrophils (%) (Auto) 60 % (31-73) Lymphocytes (%) (Auto) 23 % (24-48) L Monocytes (%) (Auto) 10 % (0-9) H Eosinophils (%) (Auto) 7 % (0-3) H Basophils (%) (Auto) 1 % (0-3) Neutrophils # (Auto) 5.1 x10^3uL (1.8-7.7) Lymphocytes # (Auto) 1.9 x10^3/uL (1.0-4.8) Monocytes # (Auto) 0.9 x10^3/uL (0.0-1.1) Eosinophils # (Auto) 0.6 x10^3/uL (0.0-0.7) Basophils # (Auto) 0.1 x10^3/uL (0.0-0.2) Sodium Level 141 mmol/L (136-145) Potassium Level 3.6 mmol/L (3.5-5.1) Chloride Level 104 mmol/L (98-107) Carbon Dioxide Level 31 mmol/L (21-32) Anion Gap 6 (6-14) Blood Urea Nitrogen 18 mg/dL (8-26) Creatinine 1.2 mg/dL (0.7-1.3) Estimated GFR (Cockcroft-Gault) 57.0 BUN/Creatinine Ratio 15 (6-20) Glucose Level 120 mg/dL (70-99) H Calcium Level 8.4 mg/dL (8.5-10.1) L Total Bilirubin 0.3 mg/dL (0.2-1.0) Aspartate Amino Transferase (AST) 31 U/L (15-37) Alanine Aminotransferase (ALT) 29 U/L (16-63) Alkaline Phosphatase 143 U/L (46-116) H Total Protein 5.7 g/dL (6.4-8.2) L Albumin 2.2 g/dL (3.4-5.0) L Albumin/Globulin Ratio 0.6 (1.0-1.7) L Current Medications: Meds: Current Medications Sodium Chloride 1,000 ml @ 1,000 mls/hr 1X ONCE IV Last administered on at 17:31; Start 01/26/19 at 17:30; Stop 01/26/19 at 18:29; Status DC Lorazepam (Ativan) 1 mg 1X ONCE IV Last administered on 01/26/19at 21:22; Start 01/26/19 at 21:15; Stop 01/26/19 at 21:23; Status DC Lorazepam (Ativan) 1 mg 1X ONCE IV Last administered on 01/26/19at 22:44; Start 01/26/19 at 22:30; Stop 01/26/19 at 22:32; Status DC Acetaminophen (Tylenol) 650 mg PRN Q6HRS PRN PO PAIN / TEMP; Start 01/27/19 at 00:00; Status Cancel Multi-Ingredient Ointment (Analgesic [place]) 1 edyta PRN QID PRN TP MUSCLE PAIN; Start 01/27/19 at 00:00 Al Hydroxide/Mg Hydroxide (Mylanta Plus Xs) 15 ml PRN AFTMEALHC PRN PO DYSPEPSIA; Start 01/27/19 at 00:00 Magnesium Hydroxide (Milk Of Magnesia) 2,400 mg PRN QHS PRN PO CONSTIPATION Last administered on 02/03/19 08:05; Start 01/27/19 at 00:00 Clonazepam (KlonoPIN) 0.125 mg TID PO Last administered on 02/19/19 08:41; Start 01/27/19 at 09:00; Stop 02/19/19 at 12:07; Status DC Paroxetine HCl (Paxil) 40 mg DAILY PO Last administered on 02/01/19 08:27; Start 01/27/19 at 09:00; Stop 02/01/19 at 18:49; Status DC Trazodone HCl (Desyrel) 12.5 mg QHS PO ; Start 01/27/19 at 21:00; Stop 01/27/19 at 21:00; Status DC Olanzapine (ZyPREXA ZYDIS) 2.5 mg PRN Q2HR PRN PO PSYCHOSIS Last administered on 01/31/19 08:47; Start 01/27/19 at 01:00; Stop 01/31/19 at 20:14; Status DC Acetaminophen (Tylenol) 650 mg PRN QID PRN PO PAIN Last administered on 02:51; Start 01/27/19 at 01:00 Albuterol Sulfate (Ventolin) 1 mg PRN Q6HRS PRN INH SHORTNESS OF BREATH; Start 01/27/19 at 01:00 Aspirin (Hira Aspirin) 325 mg DAILYWBKFT PO Last administered on 02/01/19 08: 27; Start 01/27/19 at 08:00; Stop 02/01/19 at 13:38; Status DC Clonidine HCl (Catapres) 0.1 mg PRN DAILY PRN PO HYPERTENSION, SEE COMMENTS Last administered on 02/23/19 18:18; Start 01/27/19 at 01:00 Clopidogrel Bisulfate (Plavix) 75 mg DAILY PO Last administered on 02/25/19 08 :03; Start 01/27/19 at 09:00 Gabapentin (Neurontin) 100 mg BID94 PO Last administered on 02/05/19 08:34; Start 01/27/19 at 09:00; Stop 02/05/19 at 16:10; Status DC Gabapentin (Neurontin) 100 mg QHS PO Last administered on 02/04/19 20:17; Start 01/27/19 at 21:00; Stop 02/05/19 at 16:10; Status DC Levothyroxine Sodium (Synthroid) 75 mcg DAILY06 PO Last administered on 06:01; Start 01/27/19 at 06:00 Losartan Potassium (Cozaar) 50 mg DAILY PO Last administered on 01/27/19 13:26 ; Start 01/27/19 at 09:00; Stop 01/27/19 at 14:32; Status DC Tamsulosin HCl (Flomax) 0.4 mg DAILY PO Last administered on 02/05/19 08:34; Start 01/27/19 at 09:00; Stop 02/05/19 at 16:10; Status DC Multivitamins/ Minerals (I-Alis) 1 tab BID PO Last administered on 02/25/19 19 :42; Start 01/27/19 at 09:00 Allopurinol (Zyloprim) 150 mg DAILY PO Last administered on 02/25/19 08:02; Start 01/27/19 at 09:00 Non-Formulary Medication (Aloe Vera/ Collagen (Sensi-Care Perineal Cleanser)) 1 edyta BID TP ; Start 01/27/19 at 09:00; Stop 01/27/19 at 09:00; Status DC Atenolol (Tenormin) 100 mg DAILY PO Last administered on 02/25/19 08:04; Start 01/27/19 at 09:00 Atorvastatin Calcium (Lipitor) 40 mg HS PO Last administered on 02/25/19 19:42 ; Start 01/27/19 at 21:00 Brimonidine Tartrate (Alphagan) 1 drop BID OD ; Start 01/27/19 at 09:00; Stop at 12:36; Status DC Dorzolamide HCl (Trusopt) 1 drop BID OD ; Start 01/27/19 at 09:00; Stop at 12:39; Status DC Finasteride (Proscar) 5 mg DAILY PO Last administered on 02/05/19 08:34; Start 01/27/19 at 09:00; Stop 02/05/19 at 16:10; Status DC Folic Acid (Folic Acid) 1 mg DAILY PO Last administered on 02/01/19 08:26; Start 01/27/19 at 09:00; Stop 02/01/19 at 13:38; Status DC Hydrochlorothiazide (Microzide) 12.5 mg DAILY PO Last administered on 13:27; Start 01/27/19 at 09:00; Stop 01/27/19 at 14:32; Status DC Lactobacillus Rhamnosus (Culturelle) 1 cap DAILY PO Last administered on 08:34; Start 01/27/19 at 09:00; Stop 02/05/19 at 16:10; Status DC Latanoprost (Xalatan) 1 drop QHS OU Last administered on 02/25/19 19:41; Start 01/27/19 at 21:00 Multivitamins/ Calcium (Thera-M Plus) 1 tab DAILY PO Last administered on 08:26; Start 01/27/19 at 09:00; Stop 02/01/19 at 13:38; Status DC Pantoprazole Sodium (Protonix) 40 mg DAILYAC PO Last administered on 01/28/19 10:03; Start 01/27/19 at 07:30; Stop 01/29/19 at 11:24; Status DC Pilocarpine HCl (Pilocar) 1 drop TID OD ; Start 01/27/19 at 09:00; Stop at 12:38; Status DC Timolol Maleate (Timoptic 0.5% Ophth) 1 drop BID OD Last administered on 19:41; Start 01/27/19 at 07:15 Brimonidine Tartrate (Alphagan) 1 drop BID OU Last administered on 02/25/19 19 :41; Start 01/27/19 at 12:36 Pilocarpine HCl (Pilocar) 1 drop TID OU Last administered on 02/25/19 19:41; Start 01/27/19 at 12:38 Dorzolamide HCl (Trusopt) 1 drop TID OU Last administered on 02/05/19 14:00; Start 01/27/19 at 14:00; Stop 02/05/19 at 16:11; Status DC Olanzapine (ZyPREXA ZYDIS) 2.5 mg PRN Q2HR PRN PO PSYCHOSIS; Start 01/27/19 at 17:30; Stop 01/29/19 at 17:13; Status DC Trazodone HCl (Desyrel) 50 mg PRN QHS PRN PO INSOMNIA, MAY REPEAT X1 Last administered on 02/21/19at 23:17; Start 01/27/19 at 17:30 Mirtazapine (Remeron) 7.5 mg QHS PO Last administered on 01/31/19 19:55; Start 01/28/19 at 21:00; Stop 02/01/19 at 18:50; Status DC Lansoprazole (Prevacid) 30 mg DAILYAC PO Last administered on 02/25/19 08:03; Start 01/30/19 at 07:30 Tuberculin PPD (Tubersol) 0.1 ml 1X ONCE ID Last administered on 01/30/19at 15: 14; Start 01/30/19 at 14:45; Stop 01/30/19 at 14:52; Status DC Lidocaine (Lidoderm) 1 patch DAILY TD Last administered on 02/24/19 07:13; Start 01/31/19 at 18:00 Miscellaneous (Lidoderm Patch Removal) 1 ea QHS MC Last administered on 20:27; Start 02/01/19 at 03:00 Olanzapine (ZyPREXA ZYDIS) 5 mg PRN Q2HR PRN PO PSYCHOSIS Last administered on 02/25/19 02:51; Start 01/31/19 at 20:15 Aspirin (Children'S Aspirin) 81 mg DAILYWBKFT PO Last administered on 08:03; Start 02/02/19 at 08:00 Paroxetine HCl (Paxil) 30 mg DAILY PO Last administered on 02/04/19 11:29; Start 02/02/19 at 09:00; Stop 02/04/19 at 12:49; Status DC Mirtazapine (Remeron) 15 mg QHS PO Last administered on 02/25/19at 19:42; Start 02/01/19 at 21:00 Clonazepam (KlonoPIN) 0.25 mg 1X ONCE PO Last administered on 02/01/19 23:48; Start 02/02/19 at 00:00; Stop 02/02/19 at 00:01; Status DC Clonazepam (KlonoPIN) 0.25 mg 1X ONCE PO Last administered on 02/02/19at 01:47; Start 02/02/19 at 02:00; Stop 02/02/19 at 02:01; Status DC Olanzapine (ZyPREXA IM) 5 mg DAILY IM ; Start 02/04/19 at 09:00; Stop 02/04/19 at 09:00; Status DC Lorazepam (Ativan) 0.5 mg DAILY IM ; Start 02/04/19 at 09:00; Stop 02/04/19 at 09: 00; Status DC Lorazepam (Ativan) 0.5 mg DAILY IM Last administered on 02/25/19 08:13; Start 02/03/19 at 11:45 Olanzapine (ZyPREXA IM) 5 mg DAILY IM Last administered on 02/03/19at 11:44; Start 02/03/19 at 11:45; Stop 02/05/19 at 18:32; Status DC Paroxetine HCl (Paxil) 20 mg DAILY PO Last administered on 02/08/19 07:36; Start 02/05/19 at 09:00; Stop 02/08/19 at 08:59; Status DC Paroxetine HCl (Paxil) 10 mg DAILY PO Last administered on 02/10/19 12:23; Start 02/08/19 at 09:00; Stop 02/11/19 at 08:59; Status DC Paroxetine HCl (Paxil) 5 mg DAILY PO Last administered on 02/13/19 09:10; Start 02/11/19 at 09:00; Stop 02/14/19 at 08:59; Status DC Tamsulosin HCl (Flomax) 0.4 mg QHS PO Last administered on 02/25/19 19:42; Start 02/05/19 at 21:00 Dorzolamide HCl (Trusopt) 1 drop BID OU Last administered on 02/25/19 19:40; Start 02/05/19 at 21:00 Nystatin (Nystop) 15 edyta STK-MED ONCE TP Last administered on 02/05/19at 21:04; Start 02/05/19 at 21:04; Stop 02/05/19 at 21:05; Status DC Nystatin (Nystop) 1 edyta BID TP Last administered on 02/25/19at 19:42; Start 02/05 at 21:30 Divalproex Sodium (Depakote Sprinkles) 125 mg 1500 PO Last administered on 02/25at 14:53; Start 02/17/19 at 15:00 Clonazepam (KlonoPIN) 0.25 mg TID PO Last administered on 02/25/19at 19:44; Start 02/19/19 at 14:00 Loperamide HCl (Imodium) 2 mg PRN Q15MIN PRN PO DIARRHEA; Start 02/21/19 at 22: 15 Active Scripts Active Reported Sensi-Care Perineal Cleanser (Aloe Vera/Collagen) 118 Ml Solution 1 Edyta TP BID Paroxetine Hcl 40 Mg Tablet 40 Mg PO DAILY Trazodone Hcl 50 Mg Tablet 12.5 Mg PO QHS Dorzolamide Hcl 10 Ml Drops 1 Drp OD BID Timoptic (Timolol Maleate) 10 Ml Drops 1 Drp OD BID Pilocarpine Hcl 5 Mg Tablet 1 Drop OD TID Latanoprost 2.5 Ml Drops 1 Drop OU QHS Alphagan P (Brimonidine Tartrate) 5 Ml Drops 1 Drop OD BID Pantoprazole Sodium 40 Mg Tablet.dr 40 Mg PO DAILY Cozaar (Losartan Potassium) 50 Mg Tablet 50 Mg PO DAILY Levothyroxine Sodium 75 Mcg Tablet 75 Mcg PO DAILYAC Culturelle (Lactobacillus Rhamnosus Gg) 1 Each Capsule 1 Each PO DAILY Gabapentin (Gabapentin) 100 Mg Capsule 100 Mg PO QHS Gabapentin (Gabapentin) 100 Mg Capsule 100 Mg PO BID Finasteride 5 Mg Tablet 5 Mg PO DAILY Clonidine Hcl 0.1 Mg Tablet 0.1 Mg PO PRN DAILY PRN Lipitor (Atorvastatin Calcium) 40 Mg Tablet 40 Mg PO DAILY Atenolol 100 Mg Tablet 100 Mg PO DAILY Allopurinol 300 Mg Tablet 150 Mg PO DAILY Proair Hfa Inhaler (Albuterol Sulfate) 8.5 Gm Hfa.aer.ad 1 Puff INH PRN Q6HRS PRN Multivitamins (Multivitamin) 1 Each Tablet 1 Each PO DAILY Aspirin 325 Mg Tablet 325 Mg PO DAILY Folic Acid 1 Mg Tablet 1 Mg PO DAILY Clopidogrel (Clopidogrel Bisulfate) 75 Mg Tablet 75 Mg PO DAILY [employer] Tablet (A/C/E/Zinc Ox/Cupric Ox/Lutein) 1 Each Tablet 1 Each PO BID Tylenol (Acetaminophen) 325 Mg Tablet 650 Mg PO PRN QID PRN Clonazepam 0.125 Mg Tab.rapdis 0.125 Mg PO TID Tamsulosin Hcl 0.4 Mg Cap.er.24h 0.4 Mg PO DAILY Hydrochlorothiazide Tablet (Hydrochlorothiazide) 12.5 Mg Tablet 12.5 Mg PO DAILY I have reviewed the current psychotropics carefully including drug interactions. Risk benefit ratio favors no change other than as noted in my dictated progress note. Diagnosis: Problems: (1) Medical clearance for psychiatric admission (2) Anxiety disorder (3) Dementia with behavioral disturbance (4) Dementia, vascular, with delusions (5) Dementia, vascular, with depression (6) Dementia in Alzheimer's disease with delusions (7) Dementia in Alzheimer's disease with depression (8) Impulse control disorder PAOLO THOMAS MD Feb 25, 2019 23:05
[2019-02-25] MEDS: traZODone 50 MG TABLET. PO PRN (23:15)
[2019-02-26] MEDS: traZODone 50 MG TABLET. PO PRN ×2 (00:24→20:59)
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
[2019-02-26 04:00] VITALS: BP 169/73
[2019-02-26] MEDS: cloNIDine HCL 0.1 MG TABLET PO PRN (04:18)
[2019-02-26] MEDS: LEVOTHYROXINE 75 MCG TABLET PO SCH (04:19)
[2019-02-26] MEDS: ALLOPURINOL 100 MG TABLET. PO SCH (08:05)
[2019-02-26] MEDS: ATENOLOL 50 MG TABLET PO SCH (08:06)
[2019-02-26] MEDS: CLOPIDOGREL BISULFATE 75 MG TABLET PO SCH (08:06)
[2019-02-26] MEDS: MULTIVITAMIN I-VITE TABLET. PO SCH ×2 (08:06→20:04)
[2019-02-26] MEDS: ASPIRIN 81 MG TAB.CHEW PO SCH (08:06)
[2019-02-26] MEDS: LIDOCAINE (700MG/PATCH) PATCH. TD SCH ×2 (08:07→09:00)
[2019-02-26] MEDS: DORZOLAMIDE 2% OPHTH SOLUTION 10ML BOTTLE. OU SCH ×2 (08:08→21:00)
[2019-02-26] MEDS: BRIMONIDINE 0.2% OPHTH SOLUTION 5ML BOTTLE. OU SCH ×2 (08:08→21:00)
[2019-02-26] MEDS: PILOCARPINE 1% OPHTH SOLUTION 15ML BOTTLE. OU SCH ×3 (08:08→21:00)
[2019-02-26] MEDS: TIMOLOL 0.5% OPHTH SOLUTION 5ML BOTTLE. OD SCH ×2 (08:08→21:00)
[2019-02-26] MEDS: clonazePAM 0.5 MG TABLET PO SCH ×3 (08:11→20:06)
[2019-02-26] MEDS: LANSOPRAZOLE 30 MG TAB.RAP.DR PO SCH (08:12)
[2019-02-26] MEDS: NYSTATIN TOPICAL POWDER 15GM BOTTLE. TP SCH (08:12)
--- NOTE | 2019-02-26 09:47 | NUR ---
WEEKLY ACTIVITY THERAPY NOTE Date of Admission: 01/27/2019 Date of AT Assessment: 01/30/2019 Goal aimed: To increase time management and recreation education. Initial goal: Pt. will participate in at least three (Activity Therapy) groups or individual activities per week. Goal changed 02/19/2019- Pt. will participate in at least three one on one Activity Therapy sessions before discharge. Weekly progress towards goal: on track Group participation level: zero Behaviors observed: sleeps often, not around usually, irritable Plan: no change to goal
--- NOTE | 2019-02-26 11:08 | NUR ---
WEEKLY NOTE: Pt has been doing well and had no behaviors in over the last few days; however, last night he did become combative with another staff member. Pt Klonopin was increased, as was pt Depakote for the HS dose; all of his other medications remain stable. Pt has multiple wounds and the family does not wish to have these addressed as they feel pt psych medications are most important. Pt will be re-weighed today and pt final dx is Dementia. 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 This is what is hindering pt ability to discharge to [facility]. It appears that pt family is considering taking pt home for some wound care services or discharging him to the hospital for wound care.
--- NOTE | 2019-02-26 11:42 | NUR ---
Call placed to Radha at [facility] to update. Faxed wound care note for determination if [place] is able to manage wound care. Awaiting outcome and final admit decision.
--- NOTE | 2019-02-26 12:15 | NUR ---
Behavior Intervention Response and Plan: BIRP Note: Behavior: Assumed Care of patient, patient located in Patient Room at shift change. Patient exhibited the following behavior Restless, Disorganized, Compulsive. Brief assessment on rounds of vital signs, medication needs, lab studies, and pain. Treatment plan problems 1 & 2. Intervention: Patient assessed and the following interventions initiated safety checks 15 Minute Checks Cognitive Assessment , Head to toe Assessment , Medications. Response: After interactions and interventions patient responded in the following manner, Calm , Disorganized ,Cooperative. Continue to assess behaviors and condition will continue to monitor throughout the shift as needed. Patient educated on ADL's, and hand hygiene. Plan: Continue to monitor Master Treatment Plan for patient's progress toward short term goals of Medication Compliance, No harm To self/ others, long term care administrator goals to return to previous living setting vs placement. Continue to assess patient for changes in above assessment. Monitor for medication needs, pain, and safety concerns. Hourly rounding performed to ensure safe environment.
--- NOTE | 2019-02-26 15:25 | NUR ---
Received voice message from Rahda at [facility] indicating that they could not meet Cody's current wound care needs. Call placed to Chino, POA/son, to inform. Chino requested a referral be completed to [facility] for possible admission and a second option would [facility]. Call placed to Yuly, convention services director of [facility], and referral sent for review. Awaiting admit decision.
[2019-02-26] MEDS: DIVALPROEX 125 MG CAP.SPRINK PO SCH ×2 (15:59→20:10)
--- NOTE | 2019-02-26 16:16 | NUR ---
Faxed request for CARE assessment to be completed since Kevan will need [facility] level of care. Notified Chino, son, who was in agreement.
[2019-02-26 16:19] VITALS: BP 153/76
--- NOTE | 2019-02-26 18:15 | NUR ---
Dressings to patient's feet were changed. Dressing to left heel was saturated with exudate, otherwise dressings were CDI. Wounds to left foot were dressed iodoform and telfa pad then dressed with kerlix and tape. Wounds to toes on right foot were bandaged with telfa pad and dressed with tape and kerlix. Patient tolerated procedure extremely well.
[2019-02-26] MEDS: ATORVASTATIN CALCIUM 20 MG TABLET PO SCH (20:04)
[2019-02-26] MEDS: TAMSULOSIN 0.4 MG CAP.ER.24H. PO SCH (20:04)
[2019-02-26] MEDS: MIRTAZAPINE 15 MG TABLET PO SCH (20:06)
[2019-02-26] MEDS: ACETAMINOPHEN 325 MG TABLET PO PRN (20:59)
[2019-02-26] MEDS: PATCH REMOVAL. MC SCH (21:00)
[2019-02-26] MEDS: LATANOPROST 0.005% OPHTH SOLUTION 2.5ML BOTTLE. OU SCH (21:00)
--- NOTE | 2019-02-26 22:42 | PDOC ---
Exam Note: Scott Note: Please also refer to the separate dictated note~for this date of service dictated separately.~Patient seen individually. Discussed the patient with Nursing staff reviewed the chart.~Reviewed interim history and current functioning. Reviewed vital signs,~Labs/ Radiology~and current medications noted below. Continue current treatment with the changes noted in the dictated addendum note Assessment: Vital Signs: Vital Signs Date Time Temp Pulse Resp B/P (MAP) Pulse Ox O2 Delivery O2 Flow Rate FiO2 02/26/19 16:19 97.4 64 16 153/76 (101) 98 Room Air I&O Intake and Output 02/26/19 06:59 Intake Total 1260 ml Balance 1260 ml Intake Oral 1260 ml # Voids 1 Labs: Laboratory Tests Test 02/26/19 06:56 02/26/19 07:16 Glucose (Fingerstick) 116 mg/dL (70-99) H 110 mg/dL (70-99) H Current Medications: Meds: Current Medications Sodium Chloride 1,000 ml @ 1,000 mls/hr 1X ONCE IV Last administered on at 17:31; Start 01/26/19 at 17:30; Stop 01/26/19 at 18:29; Status DC Lorazepam (Ativan) 1 mg 1X ONCE IV Last administered on 01/26/19at 21:22; Start 01/26/19 at 21:15; Stop 01/26/19 at 21:23; Status DC Lorazepam (Ativan) 1 mg 1X ONCE IV Last administered on 01/26/19at 22:44; Start 01/26/19 at 22:30; Stop 01/26/19 at 22:32; Status DC Acetaminophen (Tylenol) 650 mg PRN Q6HRS PRN PO PAIN / TEMP; Start 01/27/19 at 00:00; Status Cancel Multi-Ingredient Ointment (Analgesic [place]) 1 edyta PRN QID PRN TP MUSCLE PAIN; Start 01/27/19 at 00:00 Al Hydroxide/Mg Hydroxide (Mylanta Plus Xs) 15 ml PRN AFTMEALHC PRN PO DYSPEPSIA; Start 01/27/19 at 00:00 Magnesium Hydroxide (Milk Of Magnesia) 2,400 mg PRN QHS PRN PO CONSTIPATION Last administered on 02/03/19at 08:05; Start 01/27/19 at 00:00 Clonazepam (KlonoPIN) 0.125 mg TID PO Last administered on 02/19/19 08:41; Start 01/27/19 at 09:00; Stop 02/19/19 at 12:07; Status DC Paroxetine HCl (Paxil) 40 mg DAILY PO Last administered on 02/01/19 08:27; Start 01/27/19 at 09:00; Stop 02/01/19 at 18:49; Status DC Trazodone HCl (Desyrel) 12.5 mg QHS PO ; Start 01/27/19 at 21:00; Stop 01/27/19 at 21:00; Status DC Olanzapine (ZyPREXA ZYDIS) 2.5 mg PRN Q2HR PRN PO PSYCHOSIS Last administered on 01/31/19 08:47; Start 01/27/19 at 01:00; Stop 01/31/19 at 20:14; Status DC Acetaminophen (Tylenol) 650 mg PRN QID PRN PO PAIN Last administered on 20:59; Start 01/27/19 at 01:00 Albuterol Sulfate (Ventolin) 1 mg PRN Q6HRS PRN INH SHORTNESS OF BREATH; Start 01/27/19 at 01:00 Aspirin (Hira Aspirin) 325 mg DAILYWBKFT PO Last administered on 02/01/19 08: 27; Start 01/27/19 at 08:00; Stop 02/01/19 at 13:38; Status DC Clonidine HCl (Catapres) 0.1 mg PRN DAILY PRN PO HYPERTENSION, SEE COMMENTS Last administered on 02/26/19 04:18; Start 01/27/19 at 01:00 Clopidogrel Bisulfate (Plavix) 75 mg DAILY PO Last administered on 02/26/19 08 :06; Start 01/27/19 at 09:00 Gabapentin (Neurontin) 100 mg BID94 PO Last administered on 02/05/19 08:34; Start 01/27/19 at 09:00; Stop 02/05/19 at 16:10; Status DC Gabapentin (Neurontin) 100 mg QHS PO Last administered on 02/04/19 20:17; Start 01/27/19 at 21:00; Stop 02/05/19 at 16:10; Status DC Levothyroxine Sodium (Synthroid) 75 mcg DAILY06 PO Last administered on 04:19; Start 01/27/19 at 06:00 Losartan Potassium (Cozaar) 50 mg DAILY PO Last administered on 01/27/19at 13:26 ; Start 01/27/19 at 09:00; Stop 01/27/19 at 14:32; Status DC Tamsulosin HCl (Flomax) 0.4 mg DAILY PO Last administered on 02/05/19 08:34; Start 01/27/19 at 09:00; Stop 02/05/19 at 16:10; Status DC Multivitamins/ Minerals (I-Alis) 1 tab BID PO Last administered on 02/26/19 20 :04; Start 01/27/19 at 09:00 Allopurinol (Zyloprim) 150 mg DAILY PO Last administered on 02/26/19 08:05; Start 01/27/19 at 09:00 Non-Formulary Medication (Aloe Vera/ Collagen (Sensi-Care Perineal Cleanser)) 1 edyta BID TP ; Start 01/27/19 at 09:00; Stop 01/27/19 at 09:00; Status DC Atenolol (Tenormin) 100 mg DAILY PO Last administered on 02/26/19 08:06; Start 01/27/19 at 09:00 Atorvastatin Calcium (Lipitor) 40 mg HS PO Last administered on 02/26/19 20:04 ; Start 01/27/19 at 21:00 Brimonidine Tartrate (Alphagan) 1 drop BID OD ; Start 01/27/19 at 09:00; Stop at 12:36; Status DC Dorzolamide HCl (Trusopt) 1 drop BID OD ; Start 01/27/19 at 09:00; Stop at 12:39; Status DC Finasteride (Proscar) 5 mg DAILY PO Last administered on 02/05/19 08:34; Start 01/27/19 at 09:00; Stop 02/05/19 at 16:10; Status DC Folic Acid (Folic Acid) 1 mg DAILY PO Last administered on 02/01/19 08:26; Start 01/27/19 at 09:00; Stop 02/01/19 at 13:38; Status DC Hydrochlorothiazide (Microzide) 12.5 mg DAILY PO Last administered on at 13:27; Start 01/27/19 at 09:00; Stop 01/27/19 at 14:32; Status DC Lactobacillus Rhamnosus (Culturelle) 1 cap DAILY PO Last administered on 08:34; Start 01/27/19 at 09:00; Stop 02/05/19 at 16:10; Status DC Latanoprost (Xalatan) 1 drop QHS OU Last administered on 02/25/19at 19:41; Start 01/27/19 at 21:00 Multivitamins/ Calcium (Thera-M Plus) 1 tab DAILY PO Last administered on 08:26; Start 01/27/19 at 09:00; Stop 02/01/19 at 13:38; Status DC Pantoprazole Sodium (Protonix) 40 mg DAILYAC PO Last administered on 01/28/19 10:03; Start 01/27/19 at 07:30; Stop 01/29/19 at 11:24; Status DC Pilocarpine HCl (Pilocar) 1 drop TID OD ; Start 01/27/19 at 09:00; Stop at 12:38; Status DC Timolol Maleate (Timoptic 0.5% [facility]) 1 drop BID OD Last administered on 08:08; Start 01/27/19 at 07:15 Brimonidine Tartrate (Alphagan) 1 drop BID OU Last administered on 02/26/19at 08 :08; Start 01/27/19 at 12:36 Pilocarpine HCl (Pilocar) 1 drop TID OU Last administered on 02/26/19 16:00; Start 01/27/19 at 12:38 Dorzolamide HCl (Trusopt) 1 drop TID OU Last administered on 02/05/19 14:00; Start 01/27/19 at 14:00; Stop 02/05/19 at 16:11; Status DC Olanzapine (ZyPREXA ZYDIS) 2.5 mg PRN Q2HR PRN PO PSYCHOSIS; Start 01/27/19 at 17:30; Stop 01/29/19 at 17:13; Status DC Trazodone HCl (Desyrel) 50 mg PRN QHS PRN PO INSOMNIA, MAY REPEAT X1 Last administered on 02/26/19 20:59; Start 01/27/19 at 17:30 Mirtazapine (Remeron) 7.5 mg QHS PO Last administered on 01/31/19 19:55; Start 01/28/19 at 21:00; Stop 02/01/19 at 18:50; Status DC Lansoprazole (Prevacid) 30 mg DAILYAC PO Last administered on 02/26/19 08:12; Start 01/30/19 at 07:30 Tuberculin PPD (Tubersol) 0.1 ml 1X ONCE ID Last administered on 01/30/19 15: 14; Start 01/30/19 at 14:45; Stop 01/30/19 at 14:52; Status DC Lidocaine (Lidoderm) 1 patch DAILY TD Last administered on 02/24/19 07:13; Start 01/31/19 at 18:00 Miscellaneous (Lidoderm Patch Removal) 1 ea QHS MC Last administered on 20:27; Start 02/01/19 at 03:00 Olanzapine (ZyPREXA ZYDIS) 5 mg PRN Q2HR PRN PO PSYCHOSIS Last administered on 02/25/19 02:51; Start 01/31/19 at 20:15 Aspirin (Children'S Aspirin) 81 mg DAILYWBKFT PO Last administered on 08:06; Start 02/02/19 at 08:00 Paroxetine HCl (Paxil) 30 mg DAILY PO Last administered on 02/04/19 11:29; Start 02/02/19 at 09:00; Stop 02/04/19 at 12:49; Status DC Mirtazapine (Remeron) 15 mg QHS PO Last administered on 02/26/19 20:06; Start 02/01/19 at 21:00 Clonazepam (KlonoPIN) 0.25 mg 1X ONCE PO Last administered on 02/01/19 23:48; Start 02/02/19 at 00:00; Stop 02/02/19 at 00:01; Status DC Clonazepam (KlonoPIN) 0.25 mg 1X ONCE PO Last administered on 02/02/19 01:47; Start 02/02/19 at 02:00; Stop 02/02/19 at 02:01; Status DC Olanzapine (ZyPREXA IM) 5 mg DAILY IM ; Start 02/04/19 at 09:00; Stop 02/04/19 at 09:00; Status DC Lorazepam (Ativan) 0.5 mg DAILY IM ; Start 02/04/19 at 09:00; Stop 02/04/19 at 09: 00; Status DC Lorazepam (Ativan) 0.5 mg DAILY IM Last administered on 02/25/19at 08:13; Start 02/03/19 at 11:45; Stop 02/26/19 at 11:11; Status DC Olanzapine (ZyPREXA IM) 5 mg DAILY IM Last administered on 02/03/19at 11:44; Start 02/03/19 at 11:45; Stop 02/05/19 at 18:32; Status DC Paroxetine HCl (Paxil) 20 mg DAILY PO Last administered on 02/08/19at 07:36; Start 02/05/19 at 09:00; Stop 02/08/19 at 08:59; Status DC Paroxetine HCl (Paxil) 10 mg DAILY PO Last administered on 02/10/19 12:23; Start 02/08/19 at 09:00; Stop 02/11/19 at 08:59; Status DC Paroxetine HCl (Paxil) 5 mg DAILY PO Last administered on 02/13/19at 09:10; Start 02/11/19 at 09:00; Stop 02/14/19 at 08:59; Status DC Tamsulosin HCl (Flomax) 0.4 mg QHS PO Last administered on 02/26/19at 20:04; Start 02/05/19 at 21:00 Dorzolamide HCl (Trusopt) 1 drop BID OU Last administered on 02/26/19 08:08; Start 02/05/19 at 21:00 Nystatin (Nystop) 15 edyta STK-MED ONCE TP Last administered on 02/05/19 21:04; Start 02/05/19 at 21:04; Stop 02/05/19 at 21:05; Status DC Nystatin (Nystop) 1 edyta BID TP Last administered on 02/26/19at 08:12; Start 02/05 at 21:30 Divalproex Sodium (Depakote Sprinkles) 125 mg 1500 PO Last administered on 02/25at 14:53; Start 02/17/19 at 15:00; Stop 02/26/19 at 11:19; Status DC Clonazepam (KlonoPIN) 0.25 mg TID PO Last administered on 02/26/19at 20:06; Start 02/19/19 at 14:00 Loperamide HCl (Imodium) 2 mg PRN Q15MIN PRN PO DIARRHEA; Start 02/21/19 at 22: 15 Divalproex Sodium (Depakote Sprinkles) 125 mg 1500,2100 PO Last administered on 02/26/19at 20:10; Start 02/26/19 at 15:00 Active Scripts Active Reported Sensi-Care Perineal Cleanser (Aloe Vera/Collagen) 118 Ml Solution 1 Edyta TP BID Paroxetine Hcl 40 Mg Tablet 40 Mg PO DAILY Trazodone Hcl 50 Mg Tablet 12.5 Mg PO QHS Dorzolamide Hcl 10 Ml Drops 1 Drp OD BID Timoptic (Timolol Maleate) 10 Ml Drops 1 Drp OD BID Pilocarpine Hcl 5 Mg Tablet 1 Drop OD TID Latanoprost 2.5 Ml Drops 1 Drop OU QHS Alphagan P (Brimonidine Tartrate) 5 Ml Drops 1 Drop OD BID Pantoprazole Sodium 40 Mg Tablet.dr 40 Mg PO DAILY Cozaar (Losartan Potassium) 50 Mg Tablet 50 Mg PO DAILY Levothyroxine Sodium 75 Mcg Tablet 75 Mcg PO DAILYAC Culturelle (Lactobacillus Rhamnosus Gg) 1 Each Capsule 1 Each PO DAILY Gabapentin (Gabapentin) 100 Mg Capsule 100 Mg PO QHS Gabapentin (Gabapentin) 100 Mg Capsule 100 Mg PO BID Finasteride 5 Mg Tablet 5 Mg PO DAILY Clonidine Hcl 0.1 Mg Tablet 0.1 Mg PO PRN DAILY PRN Lipitor (Atorvastatin Calcium) 40 Mg Tablet 40 Mg PO DAILY Atenolol 100 Mg Tablet 100 Mg PO DAILY Allopurinol 300 Mg Tablet 150 Mg PO DAILY Proair Hfa Inhaler (Albuterol Sulfate) 8.5 Gm Hfa.aer.ad 1 Puff INH PRN Q6HRS PRN Multivitamins (Multivitamin) 1 Each Tablet 1 Each PO DAILY Aspirin 325 Mg Tablet 325 Mg PO DAILY Folic Acid 1 Mg Tablet 1 Mg PO DAILY Clopidogrel (Clopidogrel Bisulfate) 75 Mg Tablet 75 Mg PO DAILY Mac[employer] Tablet (A/C/E/Zinc Ox/Cupric Ox/Lutein) 1 Each Tablet 1 Each PO BID Tylenol (Acetaminophen) 325 Mg Tablet 650 Mg PO PRN QID PRN Clonazepam 0.125 Mg Tab.rapdis 0.125 Mg PO TID Tamsulosin Hcl 0.4 Mg Cap.er.24h 0.4 Mg PO DAILY Hydrochlorothiazide Tablet (Hydrochlorothiazide) 12.5 Mg Tablet 12.5 Mg PO DAILY I have reviewed the current psychotropics carefully including drug interactions. Risk benefit ratio favors no change other than as noted in my dictated progress note. Diagnosis: Problems: (1) Medical clearance for psychiatric admission (2) Anxiety disorder (3) Dementia with behavioral disturbance (4) Dementia, vascular, with delusions (5) Dementia, vascular, with depression (6) Dementia in Alzheimer's disease with delusions (7) Dementia in Alzheimer's disease with depression (8) Impulse control disorder PAOLO THOMAS MD Feb 26, 2019 22:42
--- NOTE | 2019-02-27 00:01 | NUR ---
Nursing Note The patient was located in his room for his assessment and medication pass. The patient was compliant with his medications and took them whole. The patient requested PRN Tylenol and Trazodone @ HS. The patient was appropriate during interactions with staff and peers. The patient is currently sleeping in his room.
[2019-02-27] MEDS: NYSTATIN TOPICAL POWDER 15GM BOTTLE. TP SCH ×3 (03:37→20:27)
[2019-02-27] MEDS: LEVOTHYROXINE 75 MCG TABLET PO SCH (05:28)
[2019-02-27 05:59] VITALS: BP 133/71
[2019-02-27] MEDS: LANSOPRAZOLE 30 MG TAB.RAP.DR PO SCH (07:59)
[2019-02-27] MEDS: ATENOLOL 50 MG TABLET PO SCH (07:59)
[2019-02-27] MEDS: MULTIVITAMIN I-VITE TABLET. PO SCH ×2 (07:59→20:28)
[2019-02-27] MEDS: ASPIRIN 81 MG TAB.CHEW PO SCH (08:01)
[2019-02-27] MEDS: LIDOCAINE (700MG/PATCH) PATCH. TD SCH (08:01)
[2019-02-27] MEDS: ALLOPURINOL 100 MG TABLET. PO SCH (08:01)
[2019-02-27] MEDS: CLOPIDOGREL BISULFATE 75 MG TABLET PO SCH (08:01)
[2019-02-27] MEDS: BRIMONIDINE 0.2% OPHTH SOLUTION 5ML BOTTLE. OU SCH ×2 (08:03→20:39)
[2019-02-27] MEDS: TIMOLOL 0.5% OPHTH SOLUTION 5ML BOTTLE. OD SCH ×2 (08:03→20:39)
[2019-02-27] MEDS: PILOCARPINE 1% OPHTH SOLUTION 15ML BOTTLE. OU SCH ×3 (08:03→20:40)
[2019-02-27] MEDS: DORZOLAMIDE 2% OPHTH SOLUTION 10ML BOTTLE. OU SCH ×2 (08:04→20:39)
[2019-02-27] MEDS: clonazePAM 0.5 MG TABLET PO SCH ×3 (08:13→20:28)
--- NOTE | 2019-02-27 09:32 | NUR ---
Awaiting admit decision from [facility]. Faxed referral to [facility] for review as an alternate discharge location. Left message for Benita, director security risk management at [facility], with request for return phone call.
[2019-02-27] MEDS: DIVALPROEX 125 MG CAP.SPRINK PO SCH ×2 (14:28→20:29)
[2019-02-27 16:04] VITALS: BP 157/66
--- NOTE | 2019-02-27 16:11 | NUR ---
Behavior Intervention Response and Plan: BIRP Note: Behavior: Assumed Care of patient, patient located in Patient Room at shift change. Patient exhibited the following behavior Calm, Able to Focus on Task, Compliant. Brief assessment on rounds of vital signs, medication needs, lab studies, and pain. Treatment plan problems . Intervention: Patient assessed and the following interventions initiated safety checks 15 Minute Checks Head to toe Assessment , Cognitive Assessment , Medications. Response: After interactions and interventions patient responded in the following manner, Calm, Appropriate, Cooperative. Continue to assess behaviors and condition will continue to monitor throughout the shift as needed. Patient educated on ADL's, and hand hygiene. Plan: Continue to monitor Master Treatment Plan for patient's progress toward short term goals of Improved Mood, Decreased Aggression, long-term goals to return to previous living setting vs placement. Continue to assess patient for changes in above assessment. Monitor for medication needs, pain, and safety concerns. Hourly rounding performed to ensure safe environment.
--- NOTE | 2019-02-27 16:20 | NUR ---
Benita, engagement director at [facility], will be out on 03/02/19 at 11:20am to evaluate Kevan. Notified gregorio Magana.
[2019-02-27] MEDS: traZODone 50 MG TABLET. PO PRN ×2 (20:27→23:04)
[2019-02-27] MEDS: MIRTAZAPINE 15 MG TABLET PO SCH (20:28)
[2019-02-27] MEDS: ATORVASTATIN CALCIUM 20 MG TABLET PO SCH (20:28)
[2019-02-27] MEDS: TAMSULOSIN 0.4 MG CAP.ER.24H. PO SCH (20:29)
[2019-02-27] MEDS: LATANOPROST 0.005% OPHTH SOLUTION 2.5ML BOTTLE. OU SCH (20:39)
[2019-02-27] MEDS: PATCH REMOVAL. MC SCH (21:00)
--- NOTE | 2019-02-27 21:21 | PN ---
DATE: 02/25/2019 PSYCHIATRIC PROGRESS NOTE This late entry 02/25/2019 covers elements not covered in my initial note. SUBJECTIVE: I met with the patient in the evening. The patient slept 4 hours previous night. Oral intake is poor. He is somewhat confused, has diarrhea. C. diff is negative. Wound care nurses addressed his wound care and he was calm during this. REVIEW OF SYSTEMS: No CV, , pulmonary, eye system symptoms on review. Reliability poor. Hard of hearing. MENTAL STATUS EXAM: Oriented to himself. Insight, judgment, recent and remote memory, attention, concentration, fund of knowledge poor, consistent with his diagnosis mentioned in my initial note. PLAN: No change from initial note. MAN Modesta THOMAS MD DR: JOYCE/krzysztof JOB#: [id number] / [id number]
--- NOTE | 2019-02-27 21:22 | PN ---
DATE: 02/26/2019 PSYCHIATRIC PROGRESS NOTE This late entry 02/26/2019 covers elements not covered in my initial note. SUBJECTIVE: I met with the patient in the evening and staffed at treatment team meeting for lengthy meeting with the patient's son, [place], and [id number] attending. The patient behaviorally has done much better for the past 8 days, but last night he was restless, combative late in the evening, slept 5-3/4 hours. Appetite 70%. Valproic acid level is 6 and we will stop the IM scheduled of Ativan. REVIEW OF SYSTEMS: Hard of hearing, impaired ambulation, in wheelchair. No CV, , pulmonary, eye system symptoms on review. MENTAL STATUS EXAM: Oriented to himself. Insight, judgment, recent and remote memory, attention, concentration, fund of knowledge poor, consistent with his diagnosis mentioned in my initial note. PLAN: No change from initial note, but we will add another dosage of Depakote at night and continue 125 mg in the morning, add 125 mg at night; maintain Klonopin, trazodone, Zyprexa p.r.n., and Remeron for now. PAOLO THOMAS MD DR: JOYCE/krzysztof JOB#: [id number] / [id number]
--- NOTE | 2019-02-27 22:47 | PDOC ---
Exam Note: Scott Note: Please also refer to the separate dictated note~for this date of service dictated separately.~Patient seen individually. Discussed the patient with Nursing staff reviewed the chart.~Reviewed interim history and current functioning. Reviewed vital signs,~Labs/ Radiology~and current medications noted below. Continue current treatment with the changes noted in the dictated addendum note Assessment: Vital Signs: Vital Signs Date Time Temp Pulse Resp B/P (MAP) Pulse Ox O2 Delivery O2 Flow Rate FiO2 02/27/19 16:04 98.2 65 20 157/66 (96) 99 Room Air I&O Intake and Output 02/27/19 06:59 Intake Total 480 ml Balance 480 ml Intake Oral 480 ml Labs: Laboratory Tests Test 02/27/19 07:28 Glucose (Fingerstick) 84 mg/dL (70-99) Current Medications: Meds: Current Medications Sodium Chloride 1,000 ml @ 1,000 mls/hr 1X ONCE IV Last administered on at 17:31; Start 01/26/19 at 17:30; Stop 01/26/19 at 18:29; Status DC Lorazepam (Ativan) 1 mg 1X ONCE IV Last administered on 01/26/19at 21:22; Start 01/26/19 at 21:15; Stop 01/26/19 at 21:23; Status DC Lorazepam (Ativan) 1 mg 1X ONCE IV Last administered on 01/26/19at 22:44; Start 01/26/19 at 22:30; Stop 01/26/19 at 22:32; Status DC Acetaminophen (Tylenol) 650 mg PRN Q6HRS PRN PO PAIN / TEMP; Start 01/27/19 at 00:00; Status Cancel Multi-Ingredient Ointment (Analgesic [place]) 1 edyta PRN QID PRN TP MUSCLE PAIN; Start 01/27/19 at 00:00 Al Hydroxide/Mg Hydroxide (Mylanta Plus Xs) 15 ml PRN AFTMEALHC PRN PO DYSPEPSIA; Start 01/27/19 at 00:00 Magnesium Hydroxide (Milk Of Magnesia) 2,400 mg PRN QHS PRN PO CONSTIPATION Last administered on 02/03/19at 08:05; Start 01/27/19 at 00:00 Clonazepam (KlonoPIN) 0.125 mg TID PO Last administered on 02/19/19 08:41; Start 01/27/19 at 09:00; Stop 02/19/19 at 12:07; Status DC Paroxetine HCl (Paxil) 40 mg DAILY PO Last administered on 02/01/19 08:27; Start 01/27/19 at 09:00; Stop 02/01/19 at 18:49; Status DC Trazodone HCl (Desyrel) 12.5 mg QHS PO ; Start 01/27/19 at 21:00; Stop 01/27/19 at 21:00; Status DC Olanzapine (ZyPREXA ZYDIS) 2.5 mg PRN Q2HR PRN PO PSYCHOSIS Last administered on 01/31/19 08:47; Start 01/27/19 at 01:00; Stop 01/31/19 at 20:14; Status DC Acetaminophen (Tylenol) 650 mg PRN QID PRN PO PAIN Last administered on 20:59; Start 01/27/19 at 01:00 Albuterol Sulfate (Ventolin) 1 mg PRN Q6HRS PRN INH SHORTNESS OF BREATH; Start 01/27/19 at 01:00 Aspirin (Hira Aspirin) 325 mg DAILYWBKFT PO Last administered on 02/01/19 08: 27; Start 01/27/19 at 08:00; Stop 02/01/19 at 13:38; Status DC Clonidine HCl (Catapres) 0.1 mg PRN DAILY PRN PO HYPERTENSION, SEE COMMENTS Last administered on 02/26/19 04:18; Start 01/27/19 at 01:00 Clopidogrel Bisulfate (Plavix) 75 mg DAILY PO Last administered on 02/27/19 08 :01; Start 01/27/19 at 09:00 Gabapentin (Neurontin) 100 mg BID94 PO Last administered on 02/05/19 08:34; Start 01/27/19 at 09:00; Stop 02/05/19 at 16:10; Status DC Gabapentin (Neurontin) 100 mg QHS PO Last administered on 02/04/19 20:17; Start 01/27/19 at 21:00; Stop 02/05/19 at 16:10; Status DC Levothyroxine Sodium (Synthroid) 75 mcg DAILY06 PO Last administered on 3/29/ 19at 05:28; Start 01/27/19 at 06:00 Losartan Potassium (Cozaar) 50 mg DAILY PO Last administered on 01/27/19 13:26 ; Start 01/27/19 at 09:00; Stop 01/27/19 at 14:32; Status DC Tamsulosin HCl (Flomax) 0.4 mg DAILY PO Last administered on 02/05/19 08:34; Start 01/27/19 at 09:00; Stop 02/05/19 at 16:10; Status DC Multivitamins/ Minerals (I-Alis) 1 tab BID PO Last administered on 02/27/19 20 :28; Start 01/27/19 at 09:00 Allopurinol (Zyloprim) 150 mg DAILY PO Last administered on 02/27/19 08:01; Start 01/27/19 at 09:00 Non-Formulary Medication (Aloe Vera/ Collagen (Sensi-Care Perineal Cleanser)) 1 edyta BID TP ; Start 01/27/19 at 09:00; Stop 01/27/19 at 09:00; Status DC Atenolol (Tenormin) 100 mg DAILY PO Last administered on 02/27/19 07:59; Start 01/27/19 at 09:00 Atorvastatin Calcium (Lipitor) 40 mg HS PO Last administered on 02/27/19 20:28 ; Start 01/27/19 at 21:00 Brimonidine Tartrate (Alphagan) 1 drop BID OD ; Start 01/27/19 at 09:00; Stop at 12:36; Status DC Dorzolamide HCl (Trusopt) 1 drop BID OD ; Start 01/27/19 at 09:00; Stop at 12:39; Status DC Finasteride (Proscar) 5 mg DAILY PO Last administered on 02/05/19 08:34; Start 01/27/19 at 09:00; Stop 02/05/19 at 16:10; Status DC Folic Acid (Folic Acid) 1 mg DAILY PO Last administered on 02/01/19 08:26; Start 01/27/19 at 09:00; Stop 02/01/19 at 13:38; Status DC Hydrochlorothiazide (Microzide) 12.5 mg DAILY PO Last administered on at 13:27; Start 01/27/19 at 09:00; Stop 01/27/19 at 14:32; Status DC Lactobacillus Rhamnosus (Culturelle) 1 cap DAILY PO Last administered on 08:34; Start 01/27/19 at 09:00; Stop 02/05/19 at 16:10; Status DC Latanoprost (Xalatan) 1 drop QHS OU Last administered on 02/27/19 20:39; Start 01/27/19 at 21:00 Multivitamins/ Calcium (Thera-M Plus) 1 tab DAILY PO Last administered on 08:26; Start 01/27/19 at 09:00; Stop 02/01/19 at 13:38; Status DC Pantoprazole Sodium (Protonix) 40 mg DAILYAC PO Last administered on 01/28/19 10:03; Start 01/27/19 at 07:30; Stop 01/29/19 at 11:24; Status DC Pilocarpine HCl (Pilocar) 1 drop TID OD ; Start 01/27/19 at 09:00; Stop at 12:38; Status DC Timolol Maleate (Timoptic 0.5% Ophth) 1 drop BID OD Last administered on 20:39; Start 01/27/19 at 07:15 Brimonidine Tartrate (Alphagan) 1 drop BID OU Last administered on 02/27/19 20 :39; Start 01/27/19 at 12:36 Pilocarpine HCl (Pilocar) 1 drop TID OU Last administered on 02/27/19 15:21; Start 01/27/19 at 12:38 Dorzolamide HCl (Trusopt) 1 drop TID OU Last administered on 02/05/19 14:00; Start 01/27/19 at 14:00; Stop 02/05/19 at 16:11; Status DC Olanzapine (ZyPREXA ZYDIS) 2.5 mg PRN Q2HR PRN PO PSYCHOSIS; Start 01/27/19 at 17:30; Stop 01/29/19 at 17:13; Status DC Trazodone HCl (Desyrel) 50 mg PRN QHS PRN PO INSOMNIA, MAY REPEAT X1 Last administered on 02/27/19 20:27; Start 01/27/19 at 17:30 Mirtazapine (Remeron) 7.5 mg QHS PO Last administered on 01/31/19 19:55; Start 01/28/19 at 21:00; Stop 02/01/19 at 18:50; Status DC Lansoprazole (Prevacid) 30 mg DAILYAC PO Last administered on 02/27/19 07:59; Start 01/30/19 at 07:30 Tuberculin PPD (Tubersol) 0.1 ml 1X ONCE ID Last administered on 01/30/19 15: 14; Start 01/30/19 at 14:45; Stop 01/30/19 at 14:52; Status DC Lidocaine (Lidoderm) 1 patch DAILY TD Last administered on 02/27/19 08:01; Start 01/31/19 at 18:00 Miscellaneous (Lidoderm Patch Removal) 1 ea QHS MC Last administered on 21:00; Start 02/01/19 at 03:00 Olanzapine (ZyPREXA ZYDIS) 5 mg PRN Q2HR PRN PO PSYCHOSIS Last administered on 02/25/19 02:51; Start 01/31/19 at 20:15 Aspirin (Children'S Aspirin) 81 mg DAILYWBKFT PO Last administered on 08:01; Start 02/02/19 at 08:00 Paroxetine HCl (Paxil) 30 mg DAILY PO Last administered on 02/04/19 11:29; Start 02/02/19 at 09:00; Stop 02/04/19 at 12:49; Status DC Mirtazapine (Remeron) 15 mg QHS PO Last administered on 02/27/19 20:28; Start 02/01/19 at 21:00 Clonazepam (KlonoPIN) 0.25 mg 1X ONCE PO Last administered on 02/01/19 23:48; Start 02/02/19 at 00:00; Stop 02/02/19 at 00:01; Status DC Clonazepam (KlonoPIN) 0.25 mg 1X ONCE PO Last administered on 02/02/19 01:47; Start 02/02/19 at 02:00; Stop 02/02/19 at 02:01; Status DC Olanzapine (ZyPREXA IM) 5 mg DAILY IM ; Start 02/04/19 at 09:00; Stop 02/04/19 at 09:00; Status DC Lorazepam (Ativan) 0.5 mg DAILY IM ; Start 02/04/19 at 09:00; Stop 02/04/19 at 09: 00; Status DC Lorazepam (Ativan) 0.5 mg DAILY IM Last administered on 02/25/19 08:13; Start 02/03/19 at 11:45; Stop 02/26/19 at 11:11; Status DC Olanzapine (ZyPREXA IM) 5 mg DAILY IM Last administered on 02/03/19at 11:44; Start 02/03/19 at 11:45; Stop 02/05/19 at 18:32; Status DC Paroxetine HCl (Paxil) 20 mg DAILY PO Last administered on 02/08/19at 07:36; Start 02/05/19 at 09:00; Stop 02/08/19 at 08:59; Status DC Paroxetine HCl (Paxil) 10 mg DAILY PO Last administered on 02/10/19 12:23; Start 02/08/19 at 09:00; Stop 02/11/19 at 08:59; Status DC Paroxetine HCl (Paxil) 5 mg DAILY PO Last administered on 02/13/19 09:10; Start 02/11/19 at 09:00; Stop 02/14/19 at 08:59; Status DC Tamsulosin HCl (Flomax) 0.4 mg QHS PO Last administered on 02/27/19 20:29; Start 02/05/19 at 21:00 Dorzolamide HCl (Trusopt) 1 drop BID OU Last administered on 02/27/19 20:39; Start 02/05/19 at 21:00 Nystatin (Nystop) 15 edyta STK-MED ONCE TP Last administered on 02/05/19 21:04; Start 02/05/19 at 21:04; Stop 02/05/19 at 21:05; Status DC Nystatin (Nystop) 1 edyta BID TP Last administered on 02/27/19 20:27; Start 02/05 at 21:30 Divalproex Sodium (Depakote Sprinkles) 125 mg 1500 PO Last administered on 02/25 14:53; Start 02/17/19 at 15:00; Stop 02/26/19 at 11:19; Status DC Clonazepam (KlonoPIN) 0.25 mg TID PO Last administered on 02/27/19at 20:28; Start 02/19/19 at 14:00 Loperamide HCl (Imodium) 2 mg PRN Q15MIN PRN PO DIARRHEA; Start 02/21/19 at 22: 15 Divalproex Sodium (Depakote Sprinkles) 125 mg 1500,2100 PO Last administered on 02/27/19at 20:29; Start 02/26/19 at 15:00 Active Scripts Active Reported Sensi-Care Perineal Cleanser (Aloe Vera/Collagen) 118 Ml Solution 1 Edyta TP BID Paroxetine Hcl 40 Mg Tablet 40 Mg PO DAILY Trazodone Hcl 50 Mg Tablet 12.5 Mg PO QHS Dorzolamide Hcl 10 Ml Drops 1 Drp OD BID Timoptic (Timolol Maleate) 10 Ml Drops 1 Drp OD BID Pilocarpine Hcl 5 Mg Tablet 1 Drop OD TID Latanoprost 2.5 Ml Drops 1 Drop OU QHS Alphagan P (Brimonidine Tartrate) 5 Ml Drops 1 Drop OD BID Pantoprazole Sodium 40 Mg Tablet.dr 40 Mg PO DAILY Cozaar (Losartan Potassium) 50 Mg Tablet 50 Mg PO DAILY Levothyroxine Sodium 75 Mcg Tablet 75 Mcg PO DAILYAC Culturelle (Lactobacillus Rhamnosus Gg) 1 Each Capsule 1 Each PO DAILY Gabapentin (Gabapentin) 100 Mg Capsule 100 Mg PO QHS Gabapentin (Gabapentin) 100 Mg Capsule 100 Mg PO BID Finasteride 5 Mg Tablet 5 Mg PO DAILY Clonidine Hcl 0.1 Mg Tablet 0.1 Mg PO PRN DAILY PRN Lipitor (Atorvastatin Calcium) 40 Mg Tablet 40 Mg PO DAILY Atenolol 100 Mg Tablet 100 Mg PO DAILY Allopurinol 300 Mg Tablet 150 Mg PO DAILY Proair Hfa Inhaler (Albuterol Sulfate) 8.5 Gm Hfa.aer.ad 1 Puff INH PRN Q6HRS PRN Multivitamins (Multivitamin) 1 Each Tablet 1 Each PO DAILY Aspirin 325 Mg Tablet 325 Mg PO DAILY Folic Acid 1 Mg Tablet 1 Mg PO DAILY Clopidogrel (Clopidogrel Bisulfate) 75 Mg Tablet 75 Mg PO DAILY Macuvite Eye Care Tablet (A/C/E/Zinc Ox/Cupric Ox/Lutein) 1 Each Tablet 1 Each PO BID Tylenol (Acetaminophen) 325 Mg Tablet 650 Mg PO PRN QID PRN Clonazepam 0.125 Mg Tab.rapdis 0.125 Mg PO TID Tamsulosin Hcl 0.4 Mg Cap.er.24h 0.4 Mg PO DAILY Hydrochlorothiazide Tablet (Hydrochlorothiazide) 12.5 Mg Tablet 12.5 Mg PO DAILY I have reviewed the current psychotropics carefully including drug interactions. Risk benefit ratio favors no change other than as noted in my dictated progress note. Diagnosis: Problems: (1) Medical clearance for psychiatric admission (2) Anxiety disorder (3) Dementia with behavioral disturbance (4) Dementia, vascular, with delusions (5) Dementia, vascular, with depression (6) Dementia in Alzheimer's disease with delusions (7) Dementia in Alzheimer's disease with depression (8) Impulse control disorder PAOLO THOMAS MD Feb 27, 2019 22:47
--- NOTE | 2019-02-27 23:22 | NUR ---
Nursing Note The patient was located in his room for his assessment and medication pass. The patient was compliant with his medications and took them whole. The patient was given PRN Trazodone with his HS medications. The patient became agitated and restless @ 2320 and was given his Repeat Trazodone and Zyprexa Zydis. The patient is currently awake in the day room.
[2019-02-28] MEDS: LEVOTHYROXINE 75 MCG TABLET PO SCH (05:50)
[2019-02-28 06:06] VITALS: BP 182/70
[2019-02-28] MEDS: CLOPIDOGREL BISULFATE 75 MG TABLET PO SCH (07:47)
[2019-02-28] MEDS: ALLOPURINOL 100 MG TABLET. PO SCH (07:47)
[2019-02-28] MEDS: ASPIRIN 81 MG TAB.CHEW PO SCH (07:48)
[2019-02-28] MEDS: MULTIVITAMIN I-VITE TABLET. PO SCH ×2 (07:48→19:35)
[2019-02-28] MEDS: ATENOLOL 50 MG TABLET PO SCH (07:49)
[2019-02-28] MEDS: LIDOCAINE (700MG/PATCH) PATCH. TD SCH (07:49)
[2019-02-28] MEDS: NYSTATIN TOPICAL POWDER 15GM BOTTLE. TP SCH ×2 (07:50→19:37)
[2019-02-28] MEDS: clonazePAM 0.5 MG TABLET PO SCH ×3 (07:52→19:38)
[2019-02-28] MEDS: LANSOPRAZOLE 30 MG TAB.RAP.DR PO SCH (07:53)
[2019-02-28] MEDS: PILOCARPINE 1% OPHTH SOLUTION 15ML BOTTLE. OU SCH ×3 (09:00→19:38)
[2019-02-28] MEDS: TIMOLOL 0.5% OPHTH SOLUTION 5ML BOTTLE. OD SCH ×2 (09:54→19:40)
[2019-02-28] MEDS: BRIMONIDINE 0.2% OPHTH SOLUTION 5ML BOTTLE. OU SCH ×2 (09:55→19:38)
[2019-02-28] MEDS: LATANOPROST 0.005% OPHTH SOLUTION 2.5ML BOTTLE. OU SCH (09:55)
[2019-02-28] MEDS: DORZOLAMIDE 2% OPHTH SOLUTION 10ML BOTTLE. OU SCH ×2 (09:55→19:38)
--- NOTE | 2019-02-28 14:04 | NUR ---
Pt has been calm, pleasant, and cooperative. Pt has been drowsy and wanting to lay down between meals. Pt's bandaging on left toes wounds came off in shower; new dressings put on.
[2019-02-28] MEDS: DIVALPROEX 125 MG CAP.SPRINK PO SCH ×2 (14:16→19:35)
[2019-02-28 17:25] VITALS: BP 150/71
[2019-02-28] MEDS: MIRTAZAPINE 15 MG TABLET PO SCH (19:35)
[2019-02-28] MEDS: TAMSULOSIN 0.4 MG CAP.ER.24H. PO SCH (19:35)
[2019-02-28] MEDS: traZODone 50 MG TABLET. PO PRN ×2 (19:35→22:51)
[2019-02-28] MEDS: ATORVASTATIN CALCIUM 20 MG TABLET PO SCH (19:35)
[2019-02-28] MEDS: PATCH REMOVAL. MC SCH (19:38)
--- NOTE | 2019-02-28 22:40 | PDOC ---
Exam Note: Scott Note: Please also refer to the separate dictated note~for this date of service dictated separately.~Patient seen individually. Discussed the patient with Nursing staff reviewed the chart.~Reviewed interim history and current functioning. Reviewed vital signs,~Labs/ Radiology~and current medications noted below. Continue current treatment with the changes noted in the dictated addendum note Assessment: Vital Signs: Vital Signs Date Time Temp Pulse Resp B/P (MAP) Pulse Ox O2 Delivery O2 Flow Rate FiO2 02/28/19 17:25 97.3 60 18 150/71 (97) 96 02/27/19 16:04 Room Air I&O Intake and Output 02/28/19 07:00 Intake Total 960 ml Balance 960 ml Intake Oral 960 ml # Voids 1 Labs: Laboratory Tests Test 02/28/19 07:12 Glucose (Fingerstick) 92 mg/dL (70-99) Current Medications: Meds: Current Medications Sodium Chloride 1,000 ml @ 1,000 mls/hr 1X ONCE IV Last administered on at 17:31; Start 01/26/19 at 17:30; Stop 01/26/19 at 18:29; Status DC Lorazepam (Ativan) 1 mg 1X ONCE IV Last administered on 01/26/19at 21:22; Start 01/26/19 at 21:15; Stop 01/26/19 at 21:23; Status DC Lorazepam (Ativan) 1 mg 1X ONCE IV Last administered on 01/26/19at 22:44; Start 01/26/19 at 22:30; Stop 01/26/19 at 22:32; Status DC Acetaminophen (Tylenol) 650 mg PRN Q6HRS PRN PO PAIN / TEMP; Start 01/27/19 at 00:00; Status Cancel Multi-Ingredient Ointment (Analgesic [place]) 1 edyta PRN QID PRN TP MUSCLE PAIN; Start 01/27/19 at 00:00 Al Hydroxide/Mg Hydroxide (Mylanta Plus Xs) 15 ml PRN AFTMEALHC PRN PO DYSPEPSIA; Start 01/27/19 at 00:00 Magnesium Hydroxide (Milk Of Magnesia) 2,400 mg PRN QHS PRN PO CONSTIPATION Last administered on 02/03/19at 08:05; Start 01/27/19 at 00:00 Clonazepam (KlonoPIN) 0.125 mg TID PO Last administered on 02/19/19 08:41; Start 01/27/19 at 09:00; Stop 02/19/19 at 12:07; Status DC Paroxetine HCl (Paxil) 40 mg DAILY PO Last administered on 02/01/19 08:27; Start 01/27/19 at 09:00; Stop 02/01/19 at 18:49; Status DC Trazodone HCl (Desyrel) 12.5 mg QHS PO ; Start 01/27/19 at 21:00; Stop 01/27/19 at 21:00; Status DC Olanzapine (ZyPREXA ZYDIS) 2.5 mg PRN Q2HR PRN PO PSYCHOSIS Last administered on 01/31/19 08:47; Start 01/27/19 at 01:00; Stop 01/31/19 at 20:14; Status DC Acetaminophen (Tylenol) 650 mg PRN QID PRN PO PAIN Last administered on 20:59; Start 01/27/19 at 01:00 Albuterol Sulfate (Ventolin) 1 mg PRN Q6HRS PRN INH SHORTNESS OF BREATH; Start 01/27/19 at 01:00 Aspirin (Hira Aspirin) 325 mg DAILYWBKFT PO Last administered on 02/01/19 08: 27; Start 01/27/19 at 08:00; Stop 02/01/19 at 13:38; Status DC Clonidine HCl (Catapres) 0.1 mg PRN DAILY PRN PO HYPERTENSION, SEE COMMENTS Last administered on 02/26/19 04:18; Start 01/27/19 at 01:00 Clopidogrel Bisulfate (Plavix) 75 mg DAILY PO Last administered on 02/28/19 07 :47; Start 01/27/19 at 09:00 Gabapentin (Neurontin) 100 mg BID94 PO Last administered on 02/05/19 08:34; Start 01/27/19 at 09:00; Stop 02/05/19 at 16:10; Status DC Gabapentin (Neurontin) 100 mg QHS PO Last administered on 02/04/19 20:17; Start 01/27/19 at 21:00; Stop 02/05/19 at 16:10; Status DC Levothyroxine Sodium (Synthroid) 75 mcg DAILY06 PO Last administered on 05:50; Start 01/27/19 at 06:00 Losartan Potassium (Cozaar) 50 mg DAILY PO Last administered on 01/27/19 13:26 ; Start 01/27/19 at 09:00; Stop 01/27/19 at 14:32; Status DC Tamsulosin HCl (Flomax) 0.4 mg DAILY PO Last administered on 02/05/19 08:34; Start 01/27/19 at 09:00; Stop 02/05/19 at 16:10; Status DC Multivitamins/ Minerals (I-Alis) 1 tab BID PO Last administered on 02/28/19 19 :35; Start 01/27/19 at 09:00 Allopurinol (Zyloprim) 150 mg DAILY PO Last administered on 02/28/19 07:47; Start 01/27/19 at 09:00 Non-Formulary Medication (Aloe Vera/ Collagen (Sensi-Care Perineal Cleanser)) 1 edyta BID TP ; Start 01/27/19 at 09:00; Stop 01/27/19 at 09:00; Status DC Atenolol (Tenormin) 100 mg DAILY PO Last administered on 02/28/19 07:49; Start 01/27/19 at 09:00 Atorvastatin Calcium (Lipitor) 40 mg HS PO Last administered on 02/28/19 19:35 ; Start 01/27/19 at 21:00 Brimonidine Tartrate (Alphagan) 1 drop BID OD ; Start 01/27/19 at 09:00; Stop at 12:36; Status DC Dorzolamide HCl (Trusopt) 1 drop BID OD ; Start 01/27/19 at 09:00; Stop at 12:39; Status DC Finasteride (Proscar) 5 mg DAILY PO Last administered on 02/05/19 08:34; Start 01/27/19 at 09:00; Stop 02/05/19 at 16:10; Status DC Folic Acid (Folic Acid) 1 mg DAILY PO Last administered on 02/01/19 08:26; Start 01/27/19 at 09:00; Stop 02/01/19 at 13:38; Status DC Hydrochlorothiazide (Microzide) 12.5 mg DAILY PO Last administered on 13:27; Start 01/27/19 at 09:00; Stop 01/27/19 at 14:32; Status DC Lactobacillus Rhamnosus (Culturelle) 1 cap DAILY PO Last administered on 08:34; Start 01/27/19 at 09:00; Stop 02/05/19 at 16:10; Status DC Latanoprost (Xalatan) 1 drop QHS OU Last administered on 02/28/19 09:55; Start 01/27/19 at 21:00 Multivitamins/ Calcium (Thera-M Plus) 1 tab DAILY PO Last administered on 08:26; Start 01/27/19 at 09:00; Stop 02/01/19 at 13:38; Status DC Pantoprazole Sodium (Protonix) 40 mg DAILYAC PO Last administered on 01/28/19 10:03; Start 01/27/19 at 07:30; Stop 01/29/19 at 11:24; Status DC Pilocarpine HCl (Pilocar) 1 drop TID OD ; Start 01/27/19 at 09:00; Stop at 12:38; Status DC Timolol Maleate (Timoptic 0.5% Ophth) 1 drop BID OD Last administered on 19:40; Start 01/27/19 at 07:15 Brimonidine Tartrate (Alphagan) 1 drop BID OU Last administered on 02/28/19 19 :38; Start 01/27/19 at 12:36 Pilocarpine HCl (Pilocar) 1 drop TID OU Last administered on 02/28/19 19:38; Start 01/27/19 at 12:38 Dorzolamide HCl (Trusopt) 1 drop TID OU Last administered on 02/05/19 14:00; Start 01/27/19 at 14:00; Stop 02/05/19 at 16:11; Status DC Olanzapine (ZyPREXA ZYDIS) 2.5 mg PRN Q2HR PRN PO PSYCHOSIS; Start 01/27/19 at 17:30; Stop 01/29/19 at 17:13; Status DC Trazodone HCl (Desyrel) 50 mg PRN QHS PRN PO INSOMNIA, MAY REPEAT X1 Last administered on 02/28/19 19:35; Start 01/27/19 at 17:30 Mirtazapine (Remeron) 7.5 mg QHS PO Last administered on 01/31/19 19:55; Start 01/28/19 at 21:00; Stop 02/01/19 at 18:50; Status DC Lansoprazole (Prevacid) 30 mg DAILYAC PO Last administered on 02/28/19 07:53; Start 01/30/19 at 07:30 Tuberculin PPD (Tubersol) 0.1 ml 1X ONCE ID Last administered on 01/30/19 15: 14; Start 01/30/19 at 14:45; Stop 01/30/19 at 14:52; Status DC Lidocaine (Lidoderm) 1 patch DAILY TD Last administered on 02/28/19 07:49; Start 01/31/19 at 18:00 Miscellaneous (Lidoderm Patch Removal) 1 ea QHS MC Last administered on 19:38; Start 02/01/19 at 03:00 Olanzapine (ZyPREXA ZYDIS) 5 mg PRN Q2HR PRN PO PSYCHOSIS Last administered on 02/27/19 23:04; Start 01/31/19 at 20:15 Aspirin (Children'S Aspirin) 81 mg DAILYWBKFT PO Last administered on 07:48; Start 02/02/19 at 08:00 Paroxetine HCl (Paxil) 30 mg DAILY PO Last administered on 02/04/19 11:29; Start 02/02/19 at 09:00; Stop 02/04/19 at 12:49; Status DC Mirtazapine (Remeron) 15 mg QHS PO Last administered on 02/28/19 19:35; Start 02/01/19 at 21:00 Clonazepam (KlonoPIN) 0.25 mg 1X ONCE PO Last administered on 02/01/19 23:48; Start 02/02/19 at 00:00; Stop 02/02/19 at 00:01; Status DC Clonazepam (KlonoPIN) 0.25 mg 1X ONCE PO Last administered on 02/02/19 01:47; Start 02/02/19 at 02:00; Stop 02/02/19 at 02:01; Status DC Olanzapine (ZyPREXA IM) 5 mg DAILY IM ; Start 02/04/19 at 09:00; Stop 02/04/19 at 09:00; Status DC Lorazepam (Ativan) 0.5 mg DAILY IM ; Start 02/04/19 at 09:00; Stop 02/04/19 at 09: 00; Status DC Lorazepam (Ativan) 0.5 mg DAILY IM Last administered on 02/25/19 08:13; Start 02/03/19 at 11:45; Stop 02/26/19 at 11:11; Status DC Olanzapine (ZyPREXA IM) 5 mg DAILY IM Last administered on 02/03/19at 11:44; Start 02/03/19 at 11:45; Stop 02/05/19 at 18:32; Status DC Paroxetine HCl (Paxil) 20 mg DAILY PO Last administered on 02/08/19at 07:36; Start 02/05/19 at 09:00; Stop 02/08/19 at 08:59; Status DC Paroxetine HCl (Paxil) 10 mg DAILY PO Last administered on 02/10/19 12:23; Start 02/08/19 at 09:00; Stop 02/11/19 at 08:59; Status DC Paroxetine HCl (Paxil) 5 mg DAILY PO Last administered on 02/13/19 09:10; Start 02/11/19 at 09:00; Stop 02/14/19 at 08:59; Status DC Tamsulosin HCl (Flomax) 0.4 mg QHS PO Last administered on 02/28/19 19:35; Start 02/05/19 at 21:00 Dorzolamide HCl (Trusopt) 1 drop BID OU Last administered on 02/28/19 19:38; Start 02/05/19 at 21:00 Nystatin (Nystop) 15 edyta STK-MED ONCE TP Last administered on 02/05/19 21:04; Start 02/05/19 at 21:04; Stop 02/05/19 at 21:05; Status DC Nystatin (Nystop) 1 edyta BID TP Last administered on 02/28/19 19:37; Start 02/05 at 21:30 Divalproex Sodium (Depakote Sprinkles) 125 mg 1500 PO Last administered on 3/27 /19at 14:53; Start 02/17/19 at 15:00; Stop 02/26/19 at 11:19; Status DC Clonazepam (KlonoPIN) 0.25 mg TID PO Last administered on 02/28/19at 19:38; Start 02/19/19 at 14:00 Loperamide HCl (Imodium) 2 mg PRN Q15MIN PRN PO DIARRHEA; Start 02/21/19 at 22: 15 Divalproex Sodium (Depakote Sprinkles) 125 mg 1500,2100 PO Last administered on 02/28/19at 19:35; Start 02/26/19 at 15:00 Active Scripts Active Reported Sensi-Care Perineal Cleanser (Aloe Vera/Collagen) 118 Ml Solution 1 Edyta TP BID Paroxetine Hcl 40 Mg Tablet 40 Mg PO DAILY Trazodone Hcl 50 Mg Tablet 12.5 Mg PO QHS Dorzolamide Hcl 10 Ml Drops 1 Drp OD BID Timoptic (Timolol Maleate) 10 Ml Drops 1 Drp OD BID Pilocarpine Hcl 5 Mg Tablet 1 Drop OD TID Latanoprost 2.5 Ml Drops 1 Drop OU QHS Alphagan P (Brimonidine Tartrate) 5 Ml Drops 1 Drop OD BID Pantoprazole Sodium 40 Mg Tablet.dr 40 Mg PO DAILY Cozaar (Losartan Potassium) 50 Mg Tablet 50 Mg PO DAILY Levothyroxine Sodium 75 Mcg Tablet 75 Mcg PO DAILYAC Culturelle (Lactobacillus Rhamnosus Gg) 1 Each Capsule 1 Each PO DAILY Gabapentin (Gabapentin) 100 Mg Capsule 100 Mg PO QHS Gabapentin (Gabapentin) 100 Mg Capsule 100 Mg PO BID Finasteride 5 Mg Tablet 5 Mg PO DAILY Clonidine Hcl 0.1 Mg Tablet 0.1 Mg PO PRN DAILY PRN Lipitor (Atorvastatin Calcium) 40 Mg Tablet 40 Mg PO DAILY Atenolol 100 Mg Tablet 100 Mg PO DAILY Allopurinol 300 Mg Tablet 150 Mg PO DAILY Proair Hfa Inhaler (Albuterol Sulfate) 8.5 Gm Hfa.aer.ad 1 Puff INH PRN Q6HRS PRN Multivitamins (Multivitamin) 1 Each Tablet 1 Each PO DAILY Aspirin 325 Mg Tablet 325 Mg PO DAILY Folic Acid 1 Mg Tablet 1 Mg PO DAILY Clopidogrel (Clopidogrel Bisulfate) 75 Mg Tablet 75 Mg PO DAILY Macuvite Eye Care Tablet (A/C/E/Zinc Ox/Cupric Ox/Lutein) 1 Each Tablet 1 Each PO BID Tylenol (Acetaminophen) 325 Mg Tablet 650 Mg PO PRN QID PRN Clonazepam 0.125 Mg Tab.rapdis 0.125 Mg PO TID Tamsulosin Hcl 0.4 Mg Cap.er.24h 0.4 Mg PO DAILY Hydrochlorothiazide Tablet (Hydrochlorothiazide) 12.5 Mg Tablet 12.5 Mg PO DAILY I have reviewed the current psychotropics carefully including drug interactions. Risk benefit ratio favors no change other than as noted in my dictated progress note. Diagnosis: Problems: (1) Medical clearance for psychiatric admission (2) Anxiety disorder (3) Dementia with behavioral disturbance (4) Dementia, vascular, with delusions (5) Dementia, vascular, with depression (6) Dementia in Alzheimer's disease with delusions (7) Dementia in Alzheimer's disease with depression (8) Impulse control disorder PAOLO THOMAS MD Feb 28, 2019 22:40
--- NOTE | 2019-03-01 00:14 | NUR ---
Pt located in a wheelchair in the dayroom. Pt calm, compliant and interactive with this nurse. No behaviors noted.
[2019-03-01] MEDS: LEVOTHYROXINE 75 MCG TABLET PO SCH (05:42)
[2019-03-01 06:36] VITALS: BP 178/84
[2019-03-01] MEDS: MULTIVITAMIN I-VITE TABLET. PO SCH ×2 (07:41→19:35)
[2019-03-01] MEDS: ALLOPURINOL 100 MG TABLET. PO SCH (07:41)
[2019-03-01] MEDS: CLOPIDOGREL BISULFATE 75 MG TABLET PO SCH (07:41)
[2019-03-01] MEDS: LIDOCAINE (700MG/PATCH) PATCH. TD SCH (07:42)
[2019-03-01] MEDS: ATENOLOL 50 MG TABLET PO SCH (07:42)
[2019-03-01] MEDS: ASPIRIN 81 MG TAB.CHEW PO SCH (07:42)
[2019-03-01] MEDS: NYSTATIN TOPICAL POWDER 15GM BOTTLE. TP SCH ×2 (07:46→19:39)
[2019-03-01] MEDS: LANSOPRAZOLE 30 MG TAB.RAP.DR PO SCH (07:46)
[2019-03-01] MEDS: clonazePAM 0.5 MG TABLET PO SCH ×3 (07:46→19:39)
[2019-03-01] MEDS: DORZOLAMIDE 2% OPHTH SOLUTION 10ML BOTTLE. OU SCH ×2 (07:47→19:40)
[2019-03-01] MEDS: BRIMONIDINE 0.2% OPHTH SOLUTION 5ML BOTTLE. OU SCH ×2 (07:47→19:40)
[2019-03-01] MEDS: PILOCARPINE 1% OPHTH SOLUTION 15ML BOTTLE. OU SCH ×3 (07:47→19:40)
[2019-03-01] MEDS: TIMOLOL 0.5% OPHTH SOLUTION 5ML BOTTLE. OD SCH ×2 (07:48→19:39)
[2019-03-01 08:23] LABS: BASO % 1 % (0-3); EOS # 0.5 x10^3/uL (0.0-0.7); EOS % 6 % (0-3); HEMATOCRIT 32.8 % (39.0-53.0); HEMOGLOBIN 10.8 g/dL (13.0-17.5); LYMPH # 1.6 x10^3/uL (1.0-4.8); LYMPH % 20 % (24-48); MEAN CORPUSCULAR HEMOGLOBIN 33 pg (25-35); MEAN CORPUSCULAR HGB CONC 33 g/dL (31-37); MEAN CORPUSCULAR VOLUME 101 fL (79-100); MONO # 0.8 x10^3/uL (0.0-1.1); MONO % 11 % (0-9); NEUT # 4.9 x10^3uL (1.8-7.7); NEUT % 62 % (31-73); PLATELET COUNT 269 x10^3/uL (140-400); RED BLOOD COUNT 3.26 x10^6/uL (4.30-5.70); RED CELL DISTRIBUTION WIDTH 16.4 % (11.5-14.5); WHITE BLOOD COUNT 7.8 x10^3/uL (4.0-11.0)
[2019-03-01 08:46] LABS: ALBUMIN 2.3 g/dL (3.4-5.0); ALBUMIN/GLOBULIN RATIO 0.6 (1.0-1.7); ALK PHOS 140 U/L (46-116); ALT (SGPT) 26 U/L (16-63); ANION GAP 7 (6-14); AST (SGOT) 26 U/L (15-37); BLOOD UREA NITROGEN 14 mg/dL (8-26); BUN/CREATININE RATIO 13 (6-20); CALCIUM 8.5 mg/dL (8.5-10.1); CARBON DIOXIDE 30 mmol/L (21-32); CHLORIDE 106 mmol/L (98-107); CREATININE 1.1 mg/dL (0.7-1.3); GLUCOSE 103 mg/dL (70-99); POTASSIUM 4.5 mmol/L (3.5-5.1); SODIUM 143 mmol/L (136-145); TOTAL BILIRUBIN 0.3 mg/dL (0.2-1.0); TOTAL PROTEIN 6.1 g/dL (6.4-8.2)
[2019-03-01 08:54] LABS: VAL ACID 16 mcg/mL (50-100)
--- NOTE | 2019-03-01 10:59 | NUR ---
Behavior Intervention Response and Plan: BIRP Note: Behavior: Assumed Care of patient, patient located in Patient Room at shift change. Patient exhibited the following behavior Calm, Withdrawn, Compliant. Brief assessment on rounds of vital signs, medication needs, lab studies, and pain. Treatment plan problems . Intervention: Patient assessed and the following interventions initiated safety checks 15 Minute Checks Cognitive Assessment , Head to toe Assessment , Medications. Response: After interactions and interventions patient responded in the following manner, Appropriate , Drowsy ,Disorganized. Continue to assess behaviors and condition will continue to monitor throughout the shift as needed. Patient educated on ADL's, and hand hygiene. Plan: Continue to monitor Master Treatment Plan for patient's progress toward short term goals of Improved Mood, Medication Compliance, jail goals to return to previous living setting vs placement. Continue to assess patient for changes in above assessment. Monitor for medication needs, pain, and safety concerns. Hourly rounding performed to ensure safe environment.
[2019-03-01] MEDS: DIVALPROEX 125 MG CAP.SPRINK PO SCH ×2 (14:13→19:35)
[2019-03-01 15:51] VITALS: BP 184/74
[2019-03-01] MEDS: MIRTAZAPINE 15 MG TABLET PO SCH (19:35)
[2019-03-01] MEDS: traZODone 50 MG TABLET. PO PRN (19:35)
[2019-03-01] MEDS: TAMSULOSIN 0.4 MG CAP.ER.24H. PO SCH (19:35)
[2019-03-01] MEDS: ATORVASTATIN CALCIUM 20 MG TABLET PO SCH (19:35)
[2019-03-01] MEDS: LATANOPROST 0.005% OPHTH SOLUTION 2.5ML BOTTLE. OU SCH (19:40)
[2019-03-01] MEDS: PATCH REMOVAL. MC SCH (19:41)
--- NOTE | 2019-03-01 22:46 | PDOC ---
Exam Note: Scott Note: Please also refer to the separate dictated note~for this date of service dictated separately.~Patient seen individually. Discussed the patient with Nursing staff reviewed the chart.~Reviewed interim history and current functioning. Reviewed vital signs,~Labs/ Radiology~and current medications noted below. Continue current treatment with the changes noted in the dictated addendum note Assessment: Vital Signs: Vital Signs Date Time Temp Pulse Resp B/P (MAP) Pulse Ox O2 Delivery O2 Flow Rate FiO2 03/01/19 15:51 98.0 76 16 184/74 (110) 97 02/27/19 16:04 Room Air I&O Intake and Output 03/01/19 07:00 Intake Total 840 ml Balance 840 ml Intake Oral 840 ml # Bowel Movements 2 Labs: Laboratory Tests Test 03/01/19 07:27 03/01/19 07:52 Glucose (Fingerstick) 95 mg/dL (70-99) White Blood Count 7.8 x10^3/uL (4.0-11.0) Red Blood Count 3.26 x10^6/uL (4.30-5.70) L Hemoglobin 10.8 g/dL (13.0-17.5) L Hematocrit 32.8 % (39.0-53.0) L Mean Corpuscular Volume 101 fL (79-100) H Mean Corpuscular Hemoglobin 33 pg (25-35) Mean Corpuscular Hemoglobin Concent 33 g/dL (31-37) Red Cell Distribution Width 16.4 % (11.5-14.5) H Platelet Count 269 x10^3/uL (140-400) Neutrophils (%) (Auto) 62 % (31-73) Lymphocytes (%) (Auto) 20 % (24-48) L Monocytes (%) (Auto) 11 % (0-9) H Eosinophils (%) (Auto) 6 % (0-3) H Basophils (%) (Auto) 1 % (0-3) Neutrophils # (Auto) 4.9 x10^3uL (1.8-7.7) Lymphocytes # (Auto) 1.6 x10^3/uL (1.0-4.8) Monocytes # (Auto) 0.8 x10^3/uL (0.0-1.1) Eosinophils # (Auto) 0.5 x10^3/uL (0.0-0.7) Basophils # (Auto) 0.0 x10^3/uL (0.0-0.2) Sodium Level 143 mmol/L (136-145) Potassium Level 4.5 mmol/L (3.5-5.1) Chloride Level 106 mmol/L (98-107) Carbon Dioxide Level 30 mmol/L (21-32) Anion Gap 7 (6-14) Blood Urea Nitrogen 14 mg/dL (8-26) Creatinine 1.1 mg/dL (0.7-1.3) Estimated GFR (Cockcroft-Gault) 63.0 BUN/Creatinine Ratio 13 (6-20) Glucose Level 103 mg/dL (70-99) H Calcium Level 8.5 mg/dL (8.5-10.1) Total Bilirubin 0.3 mg/dL (0.2-1.0) Aspartate Amino Transferase (AST) 26 U/L (15-37) Alanine Aminotransferase (ALT) 26 U/L (16-63) Alkaline Phosphatase 140 U/L (46-116) H Total Protein 6.1 g/dL (6.4-8.2) L Albumin 2.3 g/dL (3.4-5.0) L Albumin/Globulin Ratio 0.6 (1.0-1.7) L Valproic Acid Level 16 mcg/mL (50-100) L Valproic Acid Last Dose Date 02/28/19 Valproic Acid Last Dose Time 2100 Current Medications: Meds: Current Medications Sodium Chloride 1,000 ml @ 1,000 mls/hr 1X ONCE IV Last administered on at 17:31; Start 01/26/19 at 17:30; Stop 01/26/19 at 18:29; Status DC Lorazepam (Ativan) 1 mg 1X ONCE IV Last administered on 01/26/19at 21:22; Start 01/26/19 at 21:15; Stop 01/26/19 at 21:23; Status DC Lorazepam (Ativan) 1 mg 1X ONCE IV Last administered on 01/26/19at 22:44; Start 01/26/19 at 22:30; Stop 01/26/19 at 22:32; Status DC Acetaminophen (Tylenol) 650 mg PRN Q6HRS PRN PO PAIN / TEMP; Start 01/27/19 at 00:00; Status Cancel Multi-Ingredient Ointment (Analgesic [place]) 1 edyta PRN QID PRN TP MUSCLE PAIN; Start 01/27/19 at 00:00 Al Hydroxide/Mg Hydroxide (Mylanta Plus Xs) 15 ml PRN AFTMEALHC PRN PO DYSPEPSIA; Start 01/27/19 at 00:00 Magnesium Hydroxide (Milk Of Magnesia) 2,400 mg PRN QHS PRN PO CONSTIPATION Last administered on 02/03/19 08:05; Start 01/27/19 at 00:00 Clonazepam (KlonoPIN) 0.125 mg TID PO Last administered on 02/19/19 08:41; Start 01/27/19 at 09:00; Stop 02/19/19 at 12:07; Status DC Paroxetine HCl (Paxil) 40 mg DAILY PO Last administered on 02/01/19 08:27; Start 01/27/19 at 09:00; Stop 02/01/19 at 18:49; Status DC Trazodone HCl (Desyrel) 12.5 mg QHS PO ; Start 01/27/19 at 21:00; Stop 01/27/19 at 21:00; Status DC Olanzapine (ZyPREXA ZYDIS) 2.5 mg PRN Q2HR PRN PO PSYCHOSIS Last administered on 01/31/19 08:47; Start 01/27/19 at 01:00; Stop 01/31/19 at 20:14; Status DC Acetaminophen (Tylenol) 650 mg PRN QID PRN PO PAIN Last administered on at 20:59; Start 01/27/19 at 01:00 Albuterol Sulfate (Ventolin) 1 mg PRN Q6HRS PRN INH SHORTNESS OF BREATH; Start 01/27/19 at 01:00 Aspirin (Hira Aspirin) 325 mg DAILYWBKFT PO Last administered on 02/01/19 08: 27; Start 01/27/19 at 08:00; Stop 02/01/19 at 13:38; Status DC Clonidine HCl (Catapres) 0.1 mg PRN DAILY PRN PO HYPERTENSION, SEE COMMENTS Last administered on 02/26/19 04:18; Start 01/27/19 at 01:00 Clopidogrel Bisulfate (Plavix) 75 mg DAILY PO Last administered on 03/01/19 07 :41; Start 01/27/19 at 09:00 Gabapentin (Neurontin) 100 mg BID94 PO Last administered on 02/05/19 08:34; Start 01/27/19 at 09:00; Stop 02/05/19 at 16:10; Status DC Gabapentin (Neurontin) 100 mg QHS PO Last administered on 02/04/19at 20:17; Start 01/27/19 at 21:00; Stop 02/05/19 at 16:10; Status DC Levothyroxine Sodium (Synthroid) 75 mcg DAILY06 PO Last administered on 05:42; Start 01/27/19 at 06:00 Losartan Potassium (Cozaar) 50 mg DAILY PO Last administered on 01/27/19 13:26 ; Start 01/27/19 at 09:00; Stop 01/27/19 at 14:32; Status DC Tamsulosin HCl (Flomax) 0.4 mg DAILY PO Last administered on 02/05/19 08:34; Start 01/27/19 at 09:00; Stop 02/05/19 at 16:10; Status DC Multivitamins/ Minerals (I-Alis) 1 tab BID PO Last administered on 03/01/19 19 :35; Start 01/27/19 at 09:00 Allopurinol (Zyloprim) 150 mg DAILY PO Last administered on 03/01/19 07:41; Start 01/27/19 at 09:00 Non-Formulary Medication (Aloe Vera/ Collagen (Sensi-Care Perineal Cleanser)) 1 edyta BID TP ; Start 01/27/19 at 09:00; Stop 01/27/19 at 09:00; Status DC Atenolol (Tenormin) 100 mg DAILY PO Last administered on 03/01/19 07:42; Start 01/27/19 at 09:00 Atorvastatin Calcium (Lipitor) 40 mg HS PO Last administered on 03/01/19 19:35 ; Start 01/27/19 at 21:00 Brimonidine Tartrate (Alphagan) 1 drop BID OD ; Start 01/27/19 at 09:00; Stop at 12:36; Status DC Dorzolamide HCl (Trusopt) 1 drop BID OD ; Start 01/27/19 at 09:00; Stop at 12:39; Status DC Finasteride (Proscar) 5 mg DAILY PO Last administered on 02/05/19 08:34; Start 01/27/19 at 09:00; Stop 02/05/19 at 16:10; Status DC Folic Acid (Folic Acid) 1 mg DAILY PO Last administered on 02/01/19 08:26; Start 01/27/19 at 09:00; Stop 02/01/19 at 13:38; Status DC Hydrochlorothiazide (Microzide) 12.5 mg DAILY PO Last administered on at 13:27; Start 01/27/19 at 09:00; Stop 01/27/19 at 14:32; Status DC Lactobacillus Rhamnosus (Culturelle) 1 cap DAILY PO Last administered on 08:34; Start 01/27/19 at 09:00; Stop 02/05/19 at 16:10; Status DC Latanoprost (Xalatan) 1 drop QHS OU Last administered on 03/01/19 19:40; Start 01/27/19 at 21:00 Multivitamins/ Calcium (Thera-M Plus) 1 tab DAILY PO Last administered on 08:26; Start 01/27/19 at 09:00; Stop 02/01/19 at 13:38; Status DC Pantoprazole Sodium (Protonix) 40 mg DAILYAC PO Last administered on 01/28/19at 10:03; Start 01/27/19 at 07:30; Stop 01/29/19 at 11:24; Status DC Pilocarpine HCl (Pilocar) 1 drop TID OD ; Start 01/27/19 at 09:00; Stop at 12:38; Status DC Timolol Maleate (Timoptic 0.5% Ophth) 1 drop BID OD Last administered on 19:39; Start 01/27/19 at 07:15 Brimonidine Tartrate (Alphagan) 1 drop BID OU Last administered on 03/01/19 19 :40; Start 01/27/19 at 12:36 Pilocarpine HCl (Pilocar) 1 drop TID OU Last administered on 3/31/19at 19:40; Start 01/27/19 at 12:38 Dorzolamide HCl (Trusopt) 1 drop TID OU Last administered on 02/05/19 14:00; Start 01/27/19 at 14:00; Stop 02/05/19 at 16:11; Status DC Olanzapine (ZyPREXA ZYDIS) 2.5 mg PRN Q2HR PRN PO PSYCHOSIS; Start 01/27/19 at 17:30; Stop 01/29/19 at 17:13; Status DC Trazodone HCl (Desyrel) 50 mg PRN QHS PRN PO INSOMNIA, MAY REPEAT X1 Last administered on 03/01/19 19:35; Start 01/27/19 at 17:30 Mirtazapine (Remeron) 7.5 mg QHS PO Last administered on 01/31/19 19:55; Start 01/28/19 at 21:00; Stop 02/01/19 at 18:50; Status DC Lansoprazole (Prevacid) 30 mg DAILYAC PO Last administered on 03/01/19 07:46; Start 01/30/19 at 07:30 Tuberculin PPD (Tubersol) 0.1 ml 1X ONCE ID Last administered on 01/30/19 15: 14; Start 01/30/19 at 14:45; Stop 01/30/19 at 14:52; Status DC Lidocaine (Lidoderm) 1 patch DAILY TD Last administered on 03/01/19 07:42; Start 01/31/19 at 18:00 Miscellaneous (Lidoderm Patch Removal) 1 ea QHS MC Last administered on 19:41; Start 02/01/19 at 03:00 Olanzapine (ZyPREXA ZYDIS) 5 mg PRN Q2HR PRN PO PSYCHOSIS Last administered on 02/27/19 23:04; Start 01/31/19 at 20:15 Aspirin (Children'S Aspirin) 81 mg DAILYWBKFT PO Last administered on 07:42; Start 02/02/19 at 08:00 Paroxetine HCl (Paxil) 30 mg DAILY PO Last administered on 02/04/19 11:29; Start 02/02/19 at 09:00; Stop 02/04/19 at 12:49; Status DC Mirtazapine (Remeron) 15 mg QHS PO Last administered on 03/01/19at 19:35; Start 02/01/19 at 21:00 Clonazepam (KlonoPIN) 0.25 mg 1X ONCE PO Last administered on 02/01/19at 23:48; Start 02/02/19 at 00:00; Stop 02/02/19 at 00:01; Status DC Clonazepam (KlonoPIN) 0.25 mg 1X ONCE PO Last administered on 02/02/19at 01:47; Start 02/02/19 at 02:00; Stop 02/02/19 at 02:01; Status DC Olanzapine (ZyPREXA IM) 5 mg DAILY IM ; Start 02/04/19 at 09:00; Stop 02/04/19 at 09:00; Status DC Lorazepam (Ativan) 0.5 mg DAILY IM ; Start 02/04/19 at 09:00; Stop 02/04/19 at 09: 00; Status DC Lorazepam (Ativan) 0.5 mg DAILY IM Last administered on 02/25/19at 08:13; Start 02/03/19 at 11:45; Stop 02/26/19 at 11:11; Status DC Olanzapine (ZyPREXA IM) 5 mg DAILY IM Last administered on 02/03/19at 11:44; Start 02/03/19 at 11:45; Stop 02/05/19 at 18:32; Status DC Paroxetine HCl (Paxil) 20 mg DAILY PO Last administered on 02/08/19at 07:36; Start 02/05/19 at 09:00; Stop 02/08/19 at 08:59; Status DC Paroxetine HCl (Paxil) 10 mg DAILY PO Last administered on 02/10/19at 12:23; Start 02/08/19 at 09:00; Stop 02/11/19 at 08:59; Status DC Paroxetine HCl (Paxil) 5 mg DAILY PO Last administered on 02/13/19at 09:10; Start 02/11/19 at 09:00; Stop 02/14/19 at 08:59; Status DC Tamsulosin HCl (Flomax) 0.4 mg QHS PO Last administered on 03/01/19at 19:35; Start 02/05/19 at 21:00 Dorzolamide HCl (Trusopt) 1 drop BID OU Last administered on 03/01/19 19:40; Start 02/05/19 at 21:00 Nystatin (Nystop) 15 edyta STK-MED ONCE TP Last administered on 02/05/19at 21:04; Start 02/05/19 at 21:04; Stop 02/05/19 at 21:05; Status DC Nystatin (Nystop) 1 edyta BID TP Last administered on 03/01/19 19:39; Start 02/05 at 21:30 Divalproex Sodium (Depakote Sprinkles) 125 mg 1500 PO Last administered on 02/25at 14:53; Start 02/17/19 at 15:00; Stop 02/26/19 at 11:19; Status DC Clonazepam (KlonoPIN) 0.25 mg TID PO Last administered on 03/01/19at 19:39; Start 02/19/19 at 14:00 Loperamide HCl (Imodium) 2 mg PRN Q15MIN PRN PO DIARRHEA; Start 02/21/19 at 22: 15 Divalproex Sodium (Depakote Sprinkles) 125 mg 1500,2100 PO Last administered on 03/01/19at 19:35; Start 02/26/19 at 15:00 Active Scripts Active Reported Sensi-Care Perineal Cleanser (Aloe Vera/Collagen) 118 Ml Solution 1 Edyta TP BID Paroxetine Hcl 40 Mg Tablet 40 Mg PO DAILY Trazodone Hcl 50 Mg Tablet 12.5 Mg PO QHS Dorzolamide Hcl 10 Ml Drops 1 Drp OD BID Timoptic (Timolol Maleate) 10 Ml Drops 1 Drp OD BID Pilocarpine Hcl 5 Mg Tablet 1 Drop OD TID Latanoprost 2.5 Ml Drops 1 Drop OU QHS Alphagan P (Brimonidine Tartrate) 5 Ml Drops 1 Drop OD BID Pantoprazole Sodium 40 Mg Tablet.dr 40 Mg PO DAILY Cozaar (Losartan Potassium) 50 Mg Tablet 50 Mg PO DAILY Levothyroxine Sodium 75 Mcg Tablet 75 Mcg PO DAILYAC Culturelle (Lactobacillus Rhamnosus Gg) 1 Each Capsule 1 Each PO DAILY Gabapentin (Gabapentin) 100 Mg Capsule 100 Mg PO QHS Gabapentin (Gabapentin) 100 Mg Capsule 100 Mg PO BID Finasteride 5 Mg Tablet 5 Mg PO DAILY Clonidine Hcl 0.1 Mg Tablet 0.1 Mg PO PRN DAILY PRN Lipitor (Atorvastatin Calcium) 40 Mg Tablet 40 Mg PO DAILY Atenolol 100 Mg Tablet 100 Mg PO DAILY Allopurinol 300 Mg Tablet 150 Mg PO DAILY Proair Hfa Inhaler (Albuterol Sulfate) 8.5 Gm Hfa.aer.ad 1 Puff INH PRN Q6HRS PRN Multivitamins (Multivitamin) 1 Each Tablet 1 Each PO DAILY Aspirin 325 Mg Tablet 325 Mg PO DAILY Folic Acid 1 Mg Tablet 1 Mg PO DAILY Clopidogrel (Clopidogrel Bisulfate) 75 Mg Tablet 75 Mg PO DAILY [facility] Tablet (A/C/E/Zinc Ox/Cupric Ox/Lutein) 1 Each Tablet 1 Each PO BID Tylenol (Acetaminophen) 325 Mg Tablet 650 Mg PO PRN QID PRN Clonazepam 0.125 Mg Tab.rapdis 0.125 Mg PO TID Tamsulosin Hcl 0.4 Mg Cap.er.24h 0.4 Mg PO DAILY Hydrochlorothiazide Tablet (Hydrochlorothiazide) 12.5 Mg Tablet 12.5 Mg PO DAILY I have reviewed the current psychotropics carefully including drug interactions. Risk benefit ratio favors no change other than as noted in my dictated progress note. Diagnosis: Problems: (1) Medical clearance for psychiatric admission (2) Anxiety disorder (3) Dementia with behavioral disturbance (4) Dementia, vascular, with delusions (5) Dementia, vascular, with depression (6) Dementia in Alzheimer's disease with delusions (7) Dementia in Alzheimer's disease with depression (8) Impulse control disorder PAOLO THOMAS MD Mar 01, 2019 22:46
[2019-03-01 23:00] LABS: BILIRUBIN,URINE NEG (NEG); CLARITY,URINE CLEAR; COLOR,URINE YELLOW; GLUCOSE,URINE NEG (NEG); NITRITE,URINE NEG (NEG); RBC,URINE 0 /HPF (0-2); UROBILINOGEN,URINE 0.2 mg/dL (0.2 mg/dL)
[2019-03-01 23:01] LABS: BACTERIA,URINE 0 /HPF (0-FEW); SQUAMOUS EPITHELIAL CELL,UR OCC /LPF; WBC,URINE OCC /HPF (0-4)
--- NOTE | 2019-03-02 01:23 | NUR ---
Pt calm, compliant with interactive this evening. Compliant with crushed medications. Pleasant. No behaviors noted.
[2019-03-02] MEDS: LEVOTHYROXINE 75 MCG TABLET PO SCH (06:23)
[2019-03-02 06:39] VITALS: BP 177/74
[2019-03-02] MEDS: MULTIVITAMIN I-VITE TABLET. PO SCH ×2 (08:01→19:53)
[2019-03-02] MEDS: CLOPIDOGREL BISULFATE 75 MG TABLET PO SCH (08:01)
[2019-03-02] MEDS: LIDOCAINE (700MG/PATCH) PATCH. TD SCH (08:01)
[2019-03-02] MEDS: NYSTATIN TOPICAL POWDER 15GM BOTTLE. TP SCH ×2 (08:01→19:55)
[2019-03-02] MEDS: ALLOPURINOL 100 MG TABLET. PO SCH (08:01)
[2019-03-02] MEDS: ASPIRIN 81 MG TAB.CHEW PO SCH (08:01)
[2019-03-02] MEDS: ATENOLOL 50 MG TABLET PO SCH (08:02)
[2019-03-02] MEDS: clonazePAM 0.5 MG TABLET PO SCH ×3 (08:04→19:55)
[2019-03-02] MEDS: LANSOPRAZOLE 30 MG TAB.RAP.DR PO SCH (08:05)
[2019-03-02] MEDS: PILOCARPINE 1% OPHTH SOLUTION 15ML BOTTLE. OU SCH ×3 (09:43→19:56)
[2019-03-02] MEDS: BRIMONIDINE 0.2% OPHTH SOLUTION 5ML BOTTLE. OU SCH ×2 (09:43→19:56)
[2019-03-02] MEDS: DORZOLAMIDE 2% OPHTH SOLUTION 10ML BOTTLE. OU SCH ×2 (09:43→19:56)
[2019-03-02] MEDS: TIMOLOL 0.5% OPHTH SOLUTION 5ML BOTTLE. OD SCH ×2 (09:43→19:56)
--- NOTE | 2019-03-02 10:57 | NUR ---
ERNIE Alas, is here this morning completing CARE assessment.
--- NOTE | 2019-03-02 12:13 | NUR ---
[facility] nurse shell coremaker, came and evaluated Cody this morning, awaiting outcome. Call placed to Yuly, tax director at [facility], left message with request for return phone call to inquire about admit decision. Awaiting return call.
--- NOTE | 2019-03-02 13:07 | NUR ---
Pt has been calm, cooperative, compliant, and very pleasant. Pt was assessed by a facility before lunch and was very pleasant with the facility production underwriter. Pt is appreciative of assistance.
--- NOTE | 2019-03-02 13:14 | NUR ---
Kevan has been declined for admit by [facility]. Awaiting admit decision from [facility].
[2019-03-02] MEDS: DIVALPROEX 125 MG CAP.SPRINK PO SCH ×2 (14:21→19:53)
--- NOTE | 2019-03-02 15:35 | NUR ---
Kevan was declined to admit to [facility] due to behaviors. Reviewed with Radha, daughter in law, who requested referrals be sent to [facility], [facility], and [facility]. Radha is also considering taking Kevan to their home and hiring private duty care providers.
[2019-03-02 16:25] VITALS: BP 157/68
--- NOTE | 2019-03-02 16:38 | NUR ---
[facility] has no bed availability. Left message for Mychal, director of regulatory affairs at [facility], and faxed referral for review. Awaiting return phone call. Call placed to Jose at [facility] who indicated having male bed availability. Faxed referral information for review. Awaiting admission decision.
[2019-03-02] MEDS: MIRTAZAPINE 15 MG TABLET PO SCH (19:53)
[2019-03-02] MEDS: TAMSULOSIN 0.4 MG CAP.ER.24H. PO SCH (19:53)
[2019-03-02] MEDS: traZODone 50 MG TABLET. PO PRN (19:54)
[2019-03-02] MEDS: ATORVASTATIN CALCIUM 20 MG TABLET PO SCH (19:54)
[2019-03-02] MEDS: LATANOPROST 0.005% OPHTH SOLUTION 2.5ML BOTTLE. OU SCH (19:56)
[2019-03-02] MEDS: PATCH REMOVAL. MC SCH (19:56)
--- NOTE | 2019-03-02 20:29 | PN ---
DATE: 02/27/2019 PSYCHIATRIC PROGRESS NOTE This late entry 02/27/2019 covers elements not covered in my initial note. SUBJECTIVE: I met with the patient in the evening. The patient slept 5-1/4 hours previous night. He remains confused, somewhat withdrawn, but not aggressive. In fact, slept much less. Mood lability is evident. REVIEW OF SYSTEMS: Ambulation impaired, in wheelchair. No CV, , pulmonary, eye, ENT system symptoms on review. Reliability poor. MENTAL STATUS EXAM: Oriented to himself. Insight, judgment, recent and remote memory, attention, concentration, fund of knowledge poor, consistent with his diagnosis mentioned in my initial note. PLAN: No change from initial note. MAN Modesta THOMAS MD DR: JOYCE/krzysztof JOB#: [id number] / [id number]
--- NOTE | 2019-03-02 22:13 | PN ---
DATE: 02/28/2019 PSYCHIATRIC PROGRESS NOTE This late entry 02/28/2019 covers elements not covered in my initial note. SUBJECTIVE: I met with the patient in the evening. The patient slept 4 hours previous night. He remains confused, compliant with medications, not aggressive. REVIEW OF SYSTEMS: Ambulation impaired, in wheelchair. No CV, , pulmonary, eye, ENT system symptoms on review. Reliability poor. MENTAL STATUS EXAM: Oriented to himself. Insight, judgment, recent and remote memory, attention, concentration, fund of knowledge poor, consistent with his diagnosis mentioned in my initial note. PLAN: No change from initial note. MAN Modesta THOMAS MD DR: JOYCE/krzysztof JOB#: [id number] / [id number]
--- NOTE | 2019-03-02 22:17 | PN ---
DATE: 03/01/2019 PSYCHIATRIC PROGRESS NOTE This late entry 03/01/2019 covers elements not covered in my initial note. SUBJECTIVE: I met with the patient in the evening. The patient slept 7-3/4 hours previous night. He remains confused, but slightly more oriented on the evening of 03/01/2019. I questioned him about his son, Chino, and he was aware that [place] was out of the country for 4 days. When I questioned him about Toyin, his [id number], he seemed to be aware that she worked as a hospice nurse. This is quite a change. REVIEW OF SYSTEMS: Ambulation impaired, in wheelchair. No CV, , pulmonary, eye system symptoms on review. MENTAL STATUS EXAM: Oriented to himself. Insight, judgment, recent and remote memory, attention, concentration, fund of knowledge poor, consistent with his diagnosis mentioned in my initial note. PLAN: No change from initial note. MAN Modesta THOMAS MD DR: JOYCE/krzysztof JOB#: [id number] / [id number]
--- NOTE | 2019-03-02 22:57 | PDOC ---
Exam Note: Scott Note: Please also refer to the separate dictated note~for this date of service dictated separately.~Patient seen individually. Discussed the patient with Nursing staff reviewed the chart.~Reviewed interim history and current functioning. Reviewed vital signs,~Labs/ Radiology~and current medications noted below. Continue current treatment with the changes noted in the dictated addendum note Assessment: Vital Signs: Vital Signs Date Time Temp Pulse Resp B/P (MAP) Pulse Ox O2 Delivery O2 Flow Rate FiO2 03/02/19 16:25 97.6 68 18 157/68 (97) 96 02/27/19 16:04 Room Air I&O Intake and Output 03/02/19 06:59 Intake Total 840 ml Balance 840 ml Intake Oral 840 ml # Bowel Movements 1 Labs: Laboratory Tests Test 03/02/19 07:21 Glucose (Fingerstick) 113 mg/dL (70-99) H Current Medications: Meds: Current Medications Sodium Chloride 1,000 ml @ 1,000 mls/hr 1X ONCE IV Last administered on at 17:31; Start 01/26/19 at 17:30; Stop 01/26/19 at 18:29; Status DC Lorazepam (Ativan) 1 mg 1X ONCE IV Last administered on 01/26/19at 21:22; Start 01/26/19 at 21:15; Stop 01/26/19 at 21:23; Status DC Lorazepam (Ativan) 1 mg 1X ONCE IV Last administered on 01/26/19at 22:44; Start 01/26/19 at 22:30; Stop 01/26/19 at 22:32; Status DC Acetaminophen (Tylenol) 650 mg PRN Q6HRS PRN PO PAIN / TEMP; Start 01/27/19 at 00:00; Status Cancel Multi-Ingredient Ointment (Analgesic Glover) 1 edyta PRN QID PRN TP MUSCLE PAIN; Start 01/27/19 at 00:00 Al Hydroxide/Mg Hydroxide (Mylanta Plus Xs) 15 ml PRN AFTMEALHC PRN PO DYSPEPSIA; Start 01/27/19 at 00:00 Magnesium Hydroxide (Milk Of Magnesia) 2,400 mg PRN QHS PRN PO CONSTIPATION Last administered on 02/03/19at 08:05; Start 01/27/19 at 00:00 Clonazepam (KlonoPIN) 0.125 mg TID PO Last administered on 02/19/19 08:41; Start 01/27/19 at 09:00; Stop 02/19/19 at 12:07; Status DC Paroxetine HCl (Paxil) 40 mg DAILY PO Last administered on 02/01/19 08:27; Start 01/27/19 at 09:00; Stop 02/01/19 at 18:49; Status DC Trazodone HCl (Desyrel) 12.5 mg QHS PO ; Start 01/27/19 at 21:00; Stop 01/27/19 at 21:00; Status DC Olanzapine (ZyPREXA ZYDIS) 2.5 mg PRN Q2HR PRN PO PSYCHOSIS Last administered on 01/31/19 08:47; Start 01/27/19 at 01:00; Stop 01/31/19 at 20:14; Status DC Acetaminophen (Tylenol) 650 mg PRN QID PRN PO PAIN Last administered on 20:59; Start 01/27/19 at 01:00 Albuterol Sulfate (Ventolin) 1 mg PRN Q6HRS PRN INH SHORTNESS OF BREATH; Start 01/27/19 at 01:00 Aspirin (Hira Aspirin) 325 mg DAILYWBKFT PO Last administered on 02/01/19 08: 27; Start 01/27/19 at 08:00; Stop 02/01/19 at 13:38; Status DC Clonidine HCl (Catapres) 0.1 mg PRN DAILY PRN PO HYPERTENSION, SEE COMMENTS Last administered on 02/26/19 04:18; Start 01/27/19 at 01:00 Clopidogrel Bisulfate (Plavix) 75 mg DAILY PO Last administered on 03/02/19 08: 01; Start 01/27/19 at 09:00 Gabapentin (Neurontin) 100 mg BID94 PO Last administered on 02/05/19 08:34; Start 01/27/19 at 09:00; Stop 02/05/19 at 16:10; Status DC Gabapentin (Neurontin) 100 mg QHS PO Last administered on 02/04/19 20:17; Start 01/27/19 at 21:00; Stop 02/05/19 at 16:10; Status DC Levothyroxine Sodium (Synthroid) 75 mcg DAILY06 PO Last administered on 06:23; Start 01/27/19 at 06:00 Losartan Potassium (Cozaar) 50 mg DAILY PO Last administered on 01/27/19at 13:26 ; Start 01/27/19 at 09:00; Stop 01/27/19 at 14:32; Status DC Tamsulosin HCl (Flomax) 0.4 mg DAILY PO Last administered on 02/05/19 08:34; Start 01/27/19 at 09:00; Stop 02/05/19 at 16:10; Status DC Multivitamins/ Minerals (I-Alis) 1 tab BID PO Last administered on 03/02/19 19: 53; Start 01/27/19 at 09:00 Allopurinol (Zyloprim) 150 mg DAILY PO Last administered on 03/02/19 08:01; Start 01/27/19 at 09:00 Non-Formulary Medication (Aloe Vera/ Collagen (Sensi-Care Perineal Cleanser)) 1 edyta BID TP ; Start 01/27/19 at 09:00; Stop 01/27/19 at 09:00; Status DC Atenolol (Tenormin) 100 mg DAILY PO Last administered on 03/02/19 08:02; Start 01/27/19 at 09:00 Atorvastatin Calcium (Lipitor) 40 mg HS PO Last administered on 03/02/19 19:54 ; Start 01/27/19 at 21:00 Brimonidine Tartrate (Alphagan) 1 drop BID OD ; Start 01/27/19 at 09:00; Stop at 12:36; Status DC Dorzolamide HCl (Trusopt) 1 drop BID OD ; Start 01/27/19 at 09:00; Stop at 12:39; Status DC Finasteride (Proscar) 5 mg DAILY PO Last administered on 02/05/19 08:34; Start 01/27/19 at 09:00; Stop 02/05/19 at 16:10; Status DC Folic Acid (Folic Acid) 1 mg DAILY PO Last administered on 02/01/19 08:26; Start 01/27/19 at 09:00; Stop 02/01/19 at 13:38; Status DC Hydrochlorothiazide (Microzide) 12.5 mg DAILY PO Last administered on 13:27; Start 01/27/19 at 09:00; Stop 01/27/19 at 14:32; Status DC Lactobacillus Rhamnosus (Culturelle) 1 cap DAILY PO Last administered on 08:34; Start 01/27/19 at 09:00; Stop 02/05/19 at 16:10; Status DC Latanoprost (Xalatan) 1 drop QHS OU Last administered on 03/02/19 19:56; Start 01/27/19 at 21:00 Multivitamins/ Calcium (Thera-M Plus) 1 tab DAILY PO Last administered on 08:26; Start 01/27/19 at 09:00; Stop 02/01/19 at 13:38; Status DC Pantoprazole Sodium (Protonix) 40 mg DAILYAC PO Last administered on 01/28/19at 10:03; Start 01/27/19 at 07:30; Stop 01/29/19 at 11:24; Status DC Pilocarpine HCl (Pilocar) 1 drop TID OD ; Start 01/27/19 at 09:00; Stop at 12:38; Status DC Timolol Maleate (Timoptic 0.5% Ophth) 1 drop BID OD Last administered on 19:56; Start 01/27/19 at 07:15 Brimonidine Tartrate (Alphagan) 1 drop BID OU Last administered on 03/02/19 19: 56; Start 01/27/19 at 12:36 Pilocarpine HCl (Pilocar) 1 drop TID OU Last administered on 03/02/19 19:56; Start 01/27/19 at 12:38 Dorzolamide HCl (Trusopt) 1 drop TID OU Last administered on 02/05/19 14:00; Start 01/27/19 at 14:00; Stop 02/05/19 at 16:11; Status DC Olanzapine (ZyPREXA ZYDIS) 2.5 mg PRN Q2HR PRN PO PSYCHOSIS; Start 01/27/19 at 17:30; Stop 01/29/19 at 17:13; Status DC Trazodone HCl (Desyrel) 50 mg PRN QHS PRN PO INSOMNIA, MAY REPEAT X1 Last administered on 03/02/19 19:54; Start 01/27/19 at 17:30 Mirtazapine (Remeron) 7.5 mg QHS PO Last administered on 01/31/19 19:55; Start 01/28/19 at 21:00; Stop 02/01/19 at 18:50; Status DC Lansoprazole (Prevacid) 30 mg DAILYAC PO Last administered on 03/02/19 08:05; Start 01/30/19 at 07:30 Tuberculin PPD (Tubersol) 0.1 ml 1X ONCE ID Last administered on 01/30/19 15: 14; Start 01/30/19 at 14:45; Stop 01/30/19 at 14:52; Status DC Lidocaine (Lidoderm) 1 patch DAILY TD Last administered on 03/02/19 08:01; Start 01/31/19 at 18:00 Miscellaneous (Lidoderm Patch Removal) 1 ea QHS MC Last administered on 19:56; Start 02/01/19 at 03:00 Olanzapine (ZyPREXA ZYDIS) 5 mg PRN Q2HR PRN PO PSYCHOSIS Last administered on 02/27/19 23:04; Start 01/31/19 at 20:15 Aspirin (Children'S Aspirin) 81 mg DAILYWBKFT PO Last administered on 03/02/19 08:01; Start 02/02/19 at 08:00 Paroxetine HCl (Paxil) 30 mg DAILY PO Last administered on 02/04/19 11:29; Start 02/02/19 at 09:00; Stop 02/04/19 at 12:49; Status DC Mirtazapine (Remeron) 15 mg QHS PO Last administered on 03/02/19 19:53; Start 02/01/19 at 21:00 Clonazepam (KlonoPIN) 0.25 mg 1X ONCE PO Last administered on 02/01/19 23:48; Start 02/02/19 at 00:00; Stop 02/02/19 at 00:01; Status DC Clonazepam (KlonoPIN) 0.25 mg 1X ONCE PO Last administered on 02/02/19 01:47; Start 02/02/19 at 02:00; Stop 02/02/19 at 02:01; Status DC Olanzapine (ZyPREXA IM) 5 mg DAILY IM ; Start 02/04/19 at 09:00; Stop 02/04/19 at 09:00; Status DC Lorazepam (Ativan) 0.5 mg DAILY IM ; Start 02/04/19 at 09:00; Stop 02/04/19 at 09: 00; Status DC Lorazepam (Ativan) 0.5 mg DAILY IM Last administered on 02/25/19at 08:13; Start 02/03/19 at 11:45; Stop 02/26/19 at 11:11; Status DC Olanzapine (ZyPREXA IM) 5 mg DAILY IM Last administered on 02/03/19at 11:44; Start 02/03/19 at 11:45; Stop 02/05/19 at 18:32; Status DC Paroxetine HCl (Paxil) 20 mg DAILY PO Last administered on 02/08/19at 07:36; Start 02/05/19 at 09:00; Stop 02/08/19 at 08:59; Status DC Paroxetine HCl (Paxil) 10 mg DAILY PO Last administered on 02/10/19 12:23; Start 02/08/19 at 09:00; Stop 02/11/19 at 08:59; Status DC Paroxetine HCl (Paxil) 5 mg DAILY PO Last administered on 02/13/19 09:10; Start 02/11/19 at 09:00; Stop 02/14/19 at 08:59; Status DC Tamsulosin HCl (Flomax) 0.4 mg QHS PO Last administered on 03/02/19 19:53; Start 02/05/19 at 21:00 Dorzolamide HCl (Trusopt) 1 drop BID OU Last administered on 03/02/19 19:56; Start 02/05/19 at 21:00 Nystatin (Nystop) 15 edyta STK-MED ONCE TP Last administered on 02/05/19 21:04; Start 02/05/19 at 21:04; Stop 02/05/19 at 21:05; Status DC Nystatin (Nystop) 1 edyta BID TP Last administered on 03/02/19 19:55; Start at 21:30 Divalproex Sodium (Depakote Sprinkles) 125 mg 1500 PO Last administered on 3/27 /19at 14:53; Start 02/17/19 at 15:00; Stop 02/26/19 at 11:19; Status DC Clonazepam (KlonoPIN) 0.25 mg TID PO Last administered on 03/02/19at 19:55; Start 02/19/19 at 14:00 Loperamide HCl (Imodium) 2 mg PRN Q15MIN PRN PO DIARRHEA; Start 02/21/19 at 22: 15 Divalproex Sodium (Depakote Sprinkles) 125 mg 1500,2100 PO Last administered on 03/02/19at 19:53; Start 02/26/19 at 15:00 Active Scripts Active Reported Sensi-Care Perineal Cleanser (Aloe Vera/Collagen) 118 Ml Solution 1 Edyta TP BID Paroxetine Hcl 40 Mg Tablet 40 Mg PO DAILY Trazodone Hcl 50 Mg Tablet 12.5 Mg PO QHS Dorzolamide Hcl 10 Ml Drops 1 Drp OD BID Timoptic (Timolol Maleate) 10 Ml Drops 1 Drp OD BID Pilocarpine Hcl 5 Mg Tablet 1 Drop OD TID Latanoprost 2.5 Ml Drops 1 Drop OU QHS Alphagan P (Brimonidine Tartrate) 5 Ml Drops 1 Drop OD BID Pantoprazole Sodium 40 Mg Tablet.dr 40 Mg PO DAILY Cozaar (Losartan Potassium) 50 Mg Tablet 50 Mg PO DAILY Levothyroxine Sodium 75 Mcg Tablet 75 Mcg PO DAILYAC Culturelle (Lactobacillus Rhamnosus Gg) 1 Each Capsule 1 Each PO DAILY Gabapentin (Gabapentin) 100 Mg Capsule 100 Mg PO QHS Gabapentin (Gabapentin) 100 Mg Capsule 100 Mg PO BID Finasteride 5 Mg Tablet 5 Mg PO DAILY Clonidine Hcl 0.1 Mg Tablet 0.1 Mg PO PRN DAILY PRN Lipitor (Atorvastatin Calcium) 40 Mg Tablet 40 Mg PO DAILY Atenolol 100 Mg Tablet 100 Mg PO DAILY Allopurinol 300 Mg Tablet 150 Mg PO DAILY Proair Hfa Inhaler (Albuterol Sulfate) 8.5 Gm Hfa.aer.ad 1 Puff INH PRN Q6HRS PRN Multivitamins (Multivitamin) 1 Each Tablet 1 Each PO DAILY Aspirin 325 Mg Tablet 325 Mg PO DAILY Folic Acid 1 Mg Tablet 1 Mg PO DAILY Clopidogrel (Clopidogrel Bisulfate) 75 Mg Tablet 75 Mg PO DAILY Macuvite Eye Care Tablet (A/C/E/Zinc Ox/Cupric Ox/Lutein) 1 Each Tablet 1 Each PO BID Tylenol (Acetaminophen) 325 Mg Tablet 650 Mg PO PRN QID PRN Clonazepam 0.125 Mg Tab.rapdis 0.125 Mg PO TID Tamsulosin Hcl 0.4 Mg Cap.er.24h 0.4 Mg PO DAILY Hydrochlorothiazide Tablet (Hydrochlorothiazide) 12.5 Mg Tablet 12.5 Mg PO DAILY I have reviewed the current psychotropics carefully including drug interactions. Risk benefit ratio favors no change other than as noted in my dictated progress note. Diagnosis: Problems: (1) Medical clearance for psychiatric admission (2) Anxiety disorder (3) Dementia with behavioral disturbance (4) Dementia, vascular, with delusions (5) Dementia, vascular, with depression (6) Dementia in Alzheimer's disease with delusions (7) Dementia in Alzheimer's disease with depression (8) Impulse control disorder PAOLO THOMAS MD Mar 02, 2019 22:57
--- NOTE | 2019-03-02 23:54 | NUR ---
Pt located in bed at shift change. Compliant with crushed medications. No behaviors noted.
[2019-03-03] MEDS: LEVOTHYROXINE 75 MCG TABLET PO SCH (05:35)
[2019-03-03 06:08] VITALS: BP 158/62
--- NOTE | 2019-03-03 07:15 | NUR ---
Wound Care patient seen per Wound care follow up for multiple wounds, see wound assessment. Pt has multiple traumatic wounds to bilateral feet/toes from kicking doors, etc, and an unstageable pressure ulcer to the left heel. Cleansed all wounds, applied Iodoflex and non adhesive foam with Hypafix tape to all open wounds. applied Kerlix to the left foot. Applied Betadine to scabbed wounds on feet. Coccyx was still slightly reddened from IAD, recommendations of continuing with Calazime cream, PRN. No other wounds noted on full skin inspection. patient needs to wear [employer]el[employer] boots while in bed. notified JAMAAL Mclean about the POC, wound care will continue to f/u.
[2019-03-03] MEDS: MULTIVITAMIN I-VITE TABLET. PO SCH ×2 (09:28→19:18)
[2019-03-03] MEDS: ATENOLOL 50 MG TABLET PO SCH (09:28)
[2019-03-03] MEDS: CLOPIDOGREL BISULFATE 75 MG TABLET PO SCH (09:28)
[2019-03-03] MEDS: ASPIRIN 81 MG TAB.CHEW PO SCH (09:28)
[2019-03-03] MEDS: LIDOCAINE (700MG/PATCH) PATCH. TD SCH (09:29)
[2019-03-03] MEDS: ALLOPURINOL 100 MG TABLET. PO SCH (09:29)
[2019-03-03] MEDS: clonazePAM 0.5 MG TABLET PO SCH ×3 (09:31→19:21)
[2019-03-03] MEDS: TIMOLOL 0.5% OPHTH SOLUTION 5ML BOTTLE. OD SCH ×2 (09:33→19:35)
[2019-03-03] MEDS: PILOCARPINE 1% OPHTH SOLUTION 15ML BOTTLE. OU SCH ×3 (09:33→19:35)
[2019-03-03] MEDS: BRIMONIDINE 0.2% OPHTH SOLUTION 5ML BOTTLE. OU SCH ×2 (09:33→19:35)
[2019-03-03] MEDS: DORZOLAMIDE 2% OPHTH SOLUTION 10ML BOTTLE. OU SCH ×2 (09:34→19:35)
[2019-03-03] MEDS: LANSOPRAZOLE 30 MG TAB.RAP.DR PO SCH (09:35)
[2019-03-03] MEDS: NYSTATIN TOPICAL POWDER 15GM BOTTLE. TP SCH ×2 (09:36→19:27)
--- NOTE | 2019-03-03 11:50 | NUR ---
Nursing Note: Pt calm, appropriate, confused, compliant w/ meds given crushed and hidden in pudding, pt cooperative w/ cares. 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
--- NOTE | 2019-03-03 12:01 | NUR ---
Kevan was declined to admit to [facility]. [facility] recommended referral be completed to [facility] as they have skilled memory care services. Call placed to Toyin, daughter in law, to review and Toyin was agreeable for referral to be sent to [facility]. Call placed to Mikaela, admissions department at [facility], and referral was faxed for review. Awaiting admit decision. Left message for Mychal, school fundraising director at [facility], to inquire about admit decision. Awaiting return phone call.
--- NOTE | 2019-03-03 13:07 | NUR ---
Received voice message from Candie, admissions at [facility], indicating they could not accept Kevan for placement as they do not have a compatible roommate as of this date. Per Toyin's request, call placed to [facility], to inquire about bed availability. Left message for Keri, admissions, with request for return phone call. Faxed referral for review, awaiting outcome.
--- NOTE | 2019-03-03 13:20 | NUR ---
Message received from Mychal, admissions at [facility], who declined Kevan for admit due to behaviors.
[2019-03-03] MEDS: DIVALPROEX 125 MG CAP.SPRINK PO SCH ×2 (14:07→19:18)
--- NOTE | 2019-03-03 14:27 | NUR ---
Nursing Note: Spoke w/ Cassandra, OT, pt was pleasant, cooperative w/ exercises. Cassandra contacted wound care nurses to confirm that pt is able to bear weight. A second pair of [employer] boots were ordered for pt d/t his roommate wearing his by mistake.
[2019-03-03 15:48] VITALS: BP 107/71
[2019-03-03] MEDS: MIRTAZAPINE 15 MG TABLET PO SCH (19:18)
[2019-03-03] MEDS: TAMSULOSIN 0.4 MG CAP.ER.24H. PO SCH (19:18)
[2019-03-03] MEDS: ATORVASTATIN CALCIUM 20 MG TABLET PO SCH (19:18)
[2019-03-03] MEDS: LATANOPROST 0.005% OPHTH SOLUTION 2.5ML BOTTLE. OU SCH (19:35)
[2019-03-03] MEDS: PATCH REMOVAL. MC SCH (21:00)
[2019-03-03] MEDS: traZODone 50 MG TABLET. PO PRN (21:36)
--- NOTE | 2019-03-03 22:41 | PDOC ---
Exam Note: Scott Note: Please also refer to the separate dictated note~for this date of service dictated separately.~Patient seen individually. Discussed the patient with Nursing staff reviewed the chart.~Reviewed interim history and current functioning. Reviewed vital signs,~Labs/ Radiology~and current medications noted below. Continue current treatment with the changes noted in the dictated addendum note Assessment: Vital Signs: Vital Signs Date Time Temp Pulse Resp B/P (MAP) Pulse Ox O2 Delivery O2 Flow Rate FiO2 03/03/19 15:48 97.1 83 20 107/71 (83) 97 Room Air I&O Intake and Output 03/03/19 07:00 Intake Total 760 ml Balance 760 ml Intake Oral 760 ml # Voids 1 Labs: Laboratory Tests Test 03/03/19 07:42 03/03/19 09:17 Glucose (Fingerstick) 68 mg/dL (70-99) L 123 mg/dL (70-99) H Current Medications: Meds: Current Medications Sodium Chloride 1,000 ml @ 1,000 mls/hr 1X ONCE IV Last administered on at 17:31; Start 01/26/19 at 17:30; Stop 01/26/19 at 18:29; Status DC Lorazepam (Ativan) 1 mg 1X ONCE IV Last administered on 01/26/19at 21:22; Start 01/26/19 at 21:15; Stop 01/26/19 at 21:23; Status DC Lorazepam (Ativan) 1 mg 1X ONCE IV Last administered on 01/26/19at 22:44; Start 01/26/19 at 22:30; Stop 01/26/19 at 22:32; Status DC Acetaminophen (Tylenol) 650 mg PRN Q6HRS PRN PO PAIN / TEMP; Start 01/27/19 at 00:00; Status Cancel Multi-Ingredient Ointment (Analgesic [place]) 1 edyta PRN QID PRN TP MUSCLE PAIN; Start 01/27/19 at 00:00 Al Hydroxide/Mg Hydroxide (Mylanta Plus Xs) 15 ml PRN AFTMEALHC PRN PO DYSPEPSIA; Start 01/27/19 at 00:00 Magnesium Hydroxide (Milk Of Magnesia) 2,400 mg PRN QHS PRN PO CONSTIPATION Last administered on 02/03/19at 08:05; Start 01/27/19 at 00:00 Clonazepam (KlonoPIN) 0.125 mg TID PO Last administered on 02/19/19 08:41; Start 01/27/19 at 09:00; Stop 02/19/19 at 12:07; Status DC Paroxetine HCl (Paxil) 40 mg DAILY PO Last administered on 02/01/19 08:27; Start 01/27/19 at 09:00; Stop 02/01/19 at 18:49; Status DC Trazodone HCl (Desyrel) 12.5 mg QHS PO ; Start 01/27/19 at 21:00; Stop 01/27/19 at 21:00; Status DC Olanzapine (ZyPREXA ZYDIS) 2.5 mg PRN Q2HR PRN PO PSYCHOSIS Last administered on 01/31/19 08:47; Start 01/27/19 at 01:00; Stop 01/31/19 at 20:14; Status DC Acetaminophen (Tylenol) 650 mg PRN QID PRN PO PAIN Last administered on 20:59; Start 01/27/19 at 01:00 Albuterol Sulfate (Ventolin) 1 mg PRN Q6HRS PRN INH SHORTNESS OF BREATH; Start 01/27/19 at 01:00 Aspirin (Hira Aspirin) 325 mg DAILYWBKFT PO Last administered on 02/01/19 08: 27; Start 01/27/19 at 08:00; Stop 02/01/19 at 13:38; Status DC Clonidine HCl (Catapres) 0.1 mg PRN DAILY PRN PO HYPERTENSION, SEE COMMENTS Last administered on 02/26/19 04:18; Start 01/27/19 at 01:00 Clopidogrel Bisulfate (Plavix) 75 mg DAILY PO Last administered on 03/03/19 09: 28; Start 01/27/19 at 09:00 Gabapentin (Neurontin) 100 mg BID94 PO Last administered on 02/05/19 08:34; Start 01/27/19 at 09:00; Stop 02/05/19 at 16:10; Status DC Gabapentin (Neurontin) 100 mg QHS PO Last administered on 02/04/19 20:17; Start 01/27/19 at 21:00; Stop 02/05/19 at 16:10; Status DC Levothyroxine Sodium (Synthroid) 75 mcg DAILY06 PO Last administered on 05:35; Start 01/27/19 at 06:00 Losartan Potassium (Cozaar) 50 mg DAILY PO Last administered on 01/27/19 13:26 ; Start 01/27/19 at 09:00; Stop 01/27/19 at 14:32; Status DC Tamsulosin HCl (Flomax) 0.4 mg DAILY PO Last administered on 02/05/19 08:34; Start 01/27/19 at 09:00; Stop 02/05/19 at 16:10; Status DC Multivitamins/ Minerals (I-Alis) 1 tab BID PO Last administered on 03/03/19 19: 18; Start 01/27/19 at 09:00 Allopurinol (Zyloprim) 150 mg DAILY PO Last administered on 03/03/19 09:29; Start 01/27/19 at 09:00 Non-Formulary Medication (Aloe Vera/ Collagen (Sensi-Care Perineal Cleanser)) 1 edyta BID TP ; Start 01/27/19 at 09:00; Stop 01/27/19 at 09:00; Status DC Atenolol (Tenormin) 100 mg DAILY PO Last administered on 03/03/19 09:28; Start 01/27/19 at 09:00 Atorvastatin Calcium (Lipitor) 40 mg HS PO Last administered on 03/03/19 19:18 ; Start 01/27/19 at 21:00 Brimonidine Tartrate (Alphagan) 1 drop BID OD ; Start 01/27/19 at 09:00; Stop at 12:36; Status DC Dorzolamide HCl (Trusopt) 1 drop BID OD ; Start 01/27/19 at 09:00; Stop at 12:39; Status DC Finasteride (Proscar) 5 mg DAILY PO Last administered on 02/05/19 08:34; Start 01/27/19 at 09:00; Stop 02/05/19 at 16:10; Status DC Folic Acid (Folic Acid) 1 mg DAILY PO Last administered on 02/01/19 08:26; Start 01/27/19 at 09:00; Stop 02/01/19 at 13:38; Status DC Hydrochlorothiazide (Microzide) 12.5 mg DAILY PO Last administered on 13:27; Start 01/27/19 at 09:00; Stop 01/27/19 at 14:32; Status DC Lactobacillus Rhamnosus (Culturelle) 1 cap DAILY PO Last administered on 08:34; Start 01/27/19 at 09:00; Stop 02/05/19 at 16:10; Status DC Latanoprost (Xalatan) 1 drop QHS OU Last administered on 03/03/19 19:35; Start 01/27/19 at 21:00 Multivitamins/ Calcium (Thera-M Plus) 1 tab DAILY PO Last administered on 08:26; Start 01/27/19 at 09:00; Stop 02/01/19 at 13:38; Status DC Pantoprazole Sodium (Protonix) 40 mg DAILYAC PO Last administered on 01/28/19at 10:03; Start 01/27/19 at 07:30; Stop 01/29/19 at 11:24; Status DC Pilocarpine HCl (Pilocar) 1 drop TID OD ; Start 01/27/19 at 09:00; Stop at 12:38; Status DC Timolol Maleate (Timoptic 0.5% Ophth) 1 drop BID OD Last administered on 19:35; Start 01/27/19 at 07:15 Brimonidine Tartrate (Alphagan) 1 drop BID OU Last administered on 03/03/19 19: 35; Start 01/27/19 at 12:36 Pilocarpine HCl (Pilocar) 1 drop TID OU Last administered on 03/03/19 19:35; Start 01/27/19 at 12:38 Dorzolamide HCl (Trusopt) 1 drop TID OU Last administered on 02/05/19 14:00; Start 01/27/19 at 14:00; Stop 02/05/19 at 16:11; Status DC Olanzapine (ZyPREXA ZYDIS) 2.5 mg PRN Q2HR PRN PO PSYCHOSIS; Start 01/27/19 at 17:30; Stop 01/29/19 at 17:13; Status DC Trazodone HCl (Desyrel) 50 mg PRN QHS PRN PO INSOMNIA, MAY REPEAT X1 Last administered on 03/03/19 21:36; Start 01/27/19 at 17:30 Mirtazapine (Remeron) 7.5 mg QHS PO Last administered on 01/31/19 19:55; Start 01/28/19 at 21:00; Stop 02/01/19 at 18:50; Status DC Lansoprazole (Prevacid) 30 mg DAILYAC PO Last administered on 03/03/19 09:35; Start 01/30/19 at 07:30 Tuberculin PPD (Tubersol) 0.1 ml 1X ONCE ID Last administered on 01/30/19 15: 14; Start 01/30/19 at 14:45; Stop 01/30/19 at 14:52; Status DC Lidocaine (Lidoderm) 1 patch DAILY TD Last administered on 03/03/19 09:29; Start 01/31/19 at 18:00 Miscellaneous (Lidoderm Patch Removal) 1 ea QHS MC Last administered on 21:00; Start 02/01/19 at 03:00 Olanzapine (ZyPREXA ZYDIS) 5 mg PRN Q2HR PRN PO PSYCHOSIS Last administered on 02/27/19 23:04; Start 01/31/19 at 20:15 Aspirin (Children'S Aspirin) 81 mg DAILYWBKFT PO Last administered on 03/03/19 09:28; Start 02/02/19 at 08:00 Paroxetine HCl (Paxil) 30 mg DAILY PO Last administered on 02/04/19 11:29; Start 02/02/19 at 09:00; Stop 02/04/19 at 12:49; Status DC Mirtazapine (Remeron) 15 mg QHS PO Last administered on 03/03/19 19:18; Start 02/01/19 at 21:00 Clonazepam (KlonoPIN) 0.25 mg 1X ONCE PO Last administered on 02/01/19 23:48; Start 02/02/19 at 00:00; Stop 02/02/19 at 00:01; Status DC Clonazepam (KlonoPIN) 0.25 mg 1X ONCE PO Last administered on 02/02/19 01:47; Start 02/02/19 at 02:00; Stop 02/02/19 at 02:01; Status DC Olanzapine (ZyPREXA IM) 5 mg DAILY IM ; Start 02/04/19 at 09:00; Stop 02/04/19 at 09:00; Status DC Lorazepam (Ativan) 0.5 mg DAILY IM ; Start 02/04/19 at 09:00; Stop 02/04/19 at 09: 00; Status DC Lorazepam (Ativan) 0.5 mg DAILY IM Last administered on 02/25/19at 08:13; Start 02/03/19 at 11:45; Stop 02/26/19 at 11:11; Status DC Olanzapine (ZyPREXA IM) 5 mg DAILY IM Last administered on 02/03/19at 11:44; Start 02/03/19 at 11:45; Stop 02/05/19 at 18:32; Status DC Paroxetine HCl (Paxil) 20 mg DAILY PO Last administered on 02/08/19at 07:36; Start 02/05/19 at 09:00; Stop 02/08/19 at 08:59; Status DC Paroxetine HCl (Paxil) 10 mg DAILY PO Last administered on 02/10/19at 12:23; Start 02/08/19 at 09:00; Stop 02/11/19 at 08:59; Status DC Paroxetine HCl (Paxil) 5 mg DAILY PO Last administered on 02/13/19at 09:10; Start 02/11/19 at 09:00; Stop 02/14/19 at 08:59; Status DC Tamsulosin HCl (Flomax) 0.4 mg QHS PO Last administered on 03/03/19 19:18; Start 02/05/19 at 21:00 Dorzolamide HCl (Trusopt) 1 drop BID OU Last administered on 03/03/19 19:35; Start 02/05/19 at 21:00 Nystatin (Nystop) 15 edyta STK-MED ONCE TP Last administered on 02/05/19 21:04; Start 02/05/19 at 21:04; Stop 02/05/19 at 21:05; Status DC Nystatin (Nystop) 1 edyta BID TP Last administered on 03/03/19 19:27; Start at 21:30 Divalproex Sodium (Depakote Sprinkles) 125 mg 1500 PO Last administered on 02/25at 14:53; Start 02/17/19 at 15:00; Stop 02/26/19 at 11:19; Status DC Clonazepam (KlonoPIN) 0.25 mg TID PO Last administered on 03/03/19at 19:21; Start 02/19/19 at 14:00 Loperamide HCl (Imodium) 2 mg PRN Q15MIN PRN PO DIARRHEA; Start 02/21/19 at 22: 15 Divalproex Sodium (Depakote Sprinkles) 125 mg 1500,2100 PO Last administered on 03/03/19at 19:18; Start 02/26/19 at 15:00 Active Scripts Active Reported Sensi-Care Perineal Cleanser (Aloe Vera/Collagen) 118 Ml Solution 1 Edyta TP BID Paroxetine Hcl 40 Mg Tablet 40 Mg PO DAILY Trazodone Hcl 50 Mg Tablet 12.5 Mg PO QHS Dorzolamide Hcl 10 Ml Drops 1 Drp OD BID Timoptic (Timolol Maleate) 10 Ml Drops 1 Drp OD BID Pilocarpine Hcl 5 Mg Tablet 1 Drop OD TID Latanoprost 2.5 Ml Drops 1 Drop OU QHS Alphagan P (Brimonidine Tartrate) 5 Ml Drops 1 Drop OD BID Pantoprazole Sodium 40 Mg Tablet.dr 40 Mg PO DAILY Cozaar (Losartan Potassium) 50 Mg Tablet 50 Mg PO DAILY Levothyroxine Sodium 75 Mcg Tablet 75 Mcg PO DAILYAC Culturelle (Lactobacillus Rhamnosus Gg) 1 Each Capsule 1 Each PO DAILY Gabapentin (Gabapentin) 100 Mg Capsule 100 Mg PO QHS Gabapentin (Gabapentin) 100 Mg Capsule 100 Mg PO BID Finasteride 5 Mg Tablet 5 Mg PO DAILY Clonidine Hcl 0.1 Mg Tablet 0.1 Mg PO PRN DAILY PRN Lipitor (Atorvastatin Calcium) 40 Mg Tablet 40 Mg PO DAILY Atenolol 100 Mg Tablet 100 Mg PO DAILY Allopurinol 300 Mg Tablet 150 Mg PO DAILY Proair Hfa Inhaler (Albuterol Sulfate) 8.5 Gm Hfa.aer.ad 1 Puff INH PRN Q6HRS PRN Multivitamins (Multivitamin) 1 Each Tablet 1 Each PO DAILY Aspirin 325 Mg Tablet 325 Mg PO DAILY Folic Acid 1 Mg Tablet 1 Mg PO DAILY Clopidogrel (Clopidogrel Bisulfate) 75 Mg Tablet 75 Mg PO DAILY Macuvite [employer] Tablet (A/C/E/Zinc Ox/Cupric Ox/Lutein) 1 Each Tablet 1 Each PO BID Tylenol (Acetaminophen) 325 Mg Tablet 650 Mg PO PRN QID PRN Clonazepam 0.125 Mg Tab.rapdis 0.125 Mg PO TID Tamsulosin Hcl 0.4 Mg Cap.er.24h 0.4 Mg PO DAILY Hydrochlorothiazide Tablet (Hydrochlorothiazide) 12.5 Mg Tablet 12.5 Mg PO DAILY I have reviewed the current psychotropics carefully including drug interactions. Risk benefit ratio favors no change other than as noted in my dictated progress note. Diagnosis: Problems: (1) Medical clearance for psychiatric admission (2) Anxiety disorder (3) Dementia with behavioral disturbance (4) Dementia, vascular, with delusions (5) Dementia, vascular, with depression (6) Dementia in Alzheimer's disease with delusions (7) Dementia in Alzheimer's disease with depression (8) Impulse control disorder PAOLO THOMAS MD Mar 03, 2019 22:41
--- NOTE | 2019-03-04 00:03 | NUR ---
Nursing Note The patient was located in his bed for his assessment and medication pass. The patient took his medication whole and was appropriate during interactions with staff and peers. The patient is currently sleeping in his room.
--- NOTE | 2019-03-04 03:20 | PN ---
DATE: 03/02/2019 This late entry for 03/02/2019 covers elements not covered in my initial note. SUBJECTIVE: I met with the patient in the evening. The patient slept 7-1/2 hours previous night. He has been very pleasant, cooperative, in fact more interactive, able to tell me about his family as I met with him in his room. This is quite a change. REVIEW OF SYSTEMS: Hard of hearing, impaired ambulation, in wheelchair. No CV, , pulmonary, eye system symptoms on review. Reliability poor. MENTAL STATUS EXAM: Oriented to himself. Insight, judgment, recent and remote memory, attention, concentration, fund of knowledge poor, consistent with his diagnosis mentioned in my initial note. PLAN: No change from initial note. MAN Modesta THOMAS MD DR: JOYCE/[email or web address] JOB#: [id number] / [id number]
[2019-03-04] MEDS: LEVOTHYROXINE 75 MCG TABLET PO SCH (05:44)
[2019-03-04 05:49] VITALS: BP 158/71
[2019-03-04] MEDS: ASPIRIN 81 MG TAB.CHEW PO SCH (07:59)
[2019-03-04] MEDS: LIDOCAINE (700MG/PATCH) PATCH. TD SCH (07:59)
[2019-03-04] MEDS: ATENOLOL 50 MG TABLET PO SCH (07:59)
[2019-03-04] MEDS: CLOPIDOGREL BISULFATE 75 MG TABLET PO SCH (07:59)
[2019-03-04] MEDS: MULTIVITAMIN I-VITE TABLET. PO SCH ×2 (07:59→21:21)
[2019-03-04] MEDS: NYSTATIN TOPICAL POWDER 15GM BOTTLE. TP SCH ×2 (07:59→21:26)
[2019-03-04] MEDS: BRIMONIDINE 0.2% OPHTH SOLUTION 5ML BOTTLE. OU SCH ×2 (08:00→21:24)
[2019-03-04] MEDS: TIMOLOL 0.5% OPHTH SOLUTION 5ML BOTTLE. OD SCH ×2 (08:00→21:23)
[2019-03-04] MEDS: PILOCARPINE 1% OPHTH SOLUTION 15ML BOTTLE. OU SCH ×3 (08:01→21:26)
[2019-03-04] MEDS: DORZOLAMIDE 2% OPHTH SOLUTION 10ML BOTTLE. OU SCH ×2 (08:01→21:23)
[2019-03-04] MEDS: clonazePAM 0.5 MG TABLET PO SCH ×3 (08:03→21:23)
[2019-03-04] MEDS: ALLOPURINOL 100 MG TABLET. PO SCH (08:04)
[2019-03-04] MEDS: LANSOPRAZOLE 30 MG TAB.RAP.DR PO SCH (08:09)
--- NOTE | 2019-03-04 09:09 | NUR ---
Per request, faxed Keri (animation director at [facility]) additional therapy notes, wound care notes, nursing notes, and physician progress note. Left Keri a message with request for return phone call to charge nurse should she have additional questions about Kevan's wound care.
--- NOTE | 2019-03-04 09:11 | NUR ---
Returned phone call to Velma, daughter, to confirm that she will attend treatment team meeting on 03/05/19 around 10:45am. Provided update on pending referral to [facility].
[2019-03-04] MEDS: DIVALPROEX 125 MG CAP.SPRINK PO SCH ×2 (13:03→21:21)
--- NOTE | 2019-03-04 14:26 | NUR ---
Behavior Intervention Response and Plan: BIRP Note: Behavior: Assumed Care of patient, patient located in Patient Room at shift change. Patient exhibited the following behavior Calm, Able to Focus on Task, Compliant. Brief assessment on rounds of vital signs, medication needs, lab studies, and pain. Treatment plan problems . Intervention: Patient assessed and the following interventions initiated safety checks 15 Minute Checks Head to toe Assessment , Cognitive Assessment , Medications. Response: After interactions and interventions patient responded in the following manner, Calm, Appropriate, Cooperative. Continue to assess behaviors and condition will continue to monitor throughout the shift as needed. Patient educated on ADL's, and hand hygiene. Plan: Continue to monitor Master Treatment Plan for patient's progress toward short term goals of Improved Mood, Decreased Aggression, skilled nursing goals to return to previous living setting vs placement. Continue to assess patient for changes in above assessment. Monitor for medication needs, pain, and safety concerns. Hourly rounding performed to ensure safe environment.
--- NOTE | 2019-03-04 16:13 | NUR ---
Received voice message from Keri at [facility] declining Kevan for admit as they feel he would be best suited for memory care and do not have an opening at this time.
[2019-03-04 16:46] VITALS: BP 157/71
[2019-03-04] MEDS: PATCH REMOVAL. MC SCH (21:00)
[2019-03-04] MEDS: ATORVASTATIN CALCIUM 20 MG TABLET PO SCH (21:21)
[2019-03-04] MEDS: TAMSULOSIN 0.4 MG CAP.ER.24H. PO SCH (21:21)
[2019-03-04] MEDS: MIRTAZAPINE 15 MG TABLET PO SCH (21:21)
[2019-03-04] MEDS: LATANOPROST 0.005% OPHTH SOLUTION 2.5ML BOTTLE. OU SCH (21:24)
--- NOTE | 2019-03-04 21:34 | PN ---
DATE: 03/03/2019 PSYCHIATRIC PROGRESS NOTE This late entry 03/03/2019 covers elements not covered in my initial note. SUBJECTIVE: I met with the patient in the evening. The patient slept 8 hours previous night. He did well at night. During the day on 03/03/2019, he was calm, compliant with medications. When I met with him in his room, I asked him about [place], he knew [place] was on a trip and this is accurate since the son had told me about this. It is surprising that the patient in fact remembers this. REVIEW OF SYSTEMS: Ambulation impaired. No CV, , pulmonary, eye system symptoms on review. Hard of hearing. MENTAL STATUS EXAM: Oriented to himself. Insight, judgment, recent and remote memory, attention, concentration, fund of knowledge poor, consistent with his diagnosis mentioned in my initial note. PLAN: No change from initial note. MAN Modesta THOMAS MD DR: JOYCE/[email or web address] JOB#: [id number] / [id number]
--- NOTE | 2019-03-04 22:09 | NUR ---
PT in room in bed at time of assessment and medication administration. PT stated his lidoderm patch had been removed by a tech during the day. While assessing PT, patch not found. Wounds noted. Feet elevated with pillow. PT compliant with medication administration taking 1 med at a time with sips of water. All eyedrops administered. Nystatin powder placed to bilateral groins. Assessment completed.
--- NOTE | 2019-03-04 22:34 | PDOC ---
Exam Note: Scott Note: Please also refer to the separate dictated note~for this date of service dictated separately.~Patient seen individually. Discussed the patient with Nursing staff reviewed the chart.~Reviewed interim history and current functioning. Reviewed vital signs,~Labs/ Radiology~and current medications noted below. Continue current treatment with the changes noted in the dictated addendum note Assessment: Vital Signs: Vital Signs Date Time Temp Pulse Resp B/P (MAP) Pulse Ox O2 Delivery O2 Flow Rate FiO2 03/04/19 16:46 97.8 68 20 157/71 (99) 96 03/03/19 15:48 Room Air I&O Intake and Output 03/04/19 07:00 Intake Total 1440 ml Balance 1440 ml Intake Oral 1440 ml # Bowel Movements 1 Labs: Laboratory Tests Test 03/04/19 07:14 Glucose (Fingerstick) 150 mg/dL (70-99) H Current Medications: Meds: Current Medications Sodium Chloride 1,000 ml @ 1,000 mls/hr 1X ONCE IV Last administered on at 17:31; Start 01/26/19 at 17:30; Stop 01/26/19 at 18:29; Status DC Lorazepam (Ativan) 1 mg 1X ONCE IV Last administered on 01/26/19at 21:22; Start 01/26/19 at 21:15; Stop 01/26/19 at 21:23; Status DC Lorazepam (Ativan) 1 mg 1X ONCE IV Last administered on 01/26/19at 22:44; Start 01/26/19 at 22:30; Stop 01/26/19 at 22:32; Status DC Acetaminophen (Tylenol) 650 mg PRN Q6HRS PRN PO PAIN / TEMP; Start 01/27/19 at 00:00; Status Cancel Multi-Ingredient Ointment (Analgesic [place]) 1 edyta PRN QID PRN TP MUSCLE PAIN; Start 01/27/19 at 00:00 Al Hydroxide/Mg Hydroxide (Mylanta Plus Xs) 15 ml PRN AFTMEALHC PRN PO DYSPEPSIA; Start 01/27/19 at 00:00 Magnesium Hydroxide (Milk Of Magnesia) 2,400 mg PRN QHS PRN PO CONSTIPATION Last administered on 02/03/19at 08:05; Start 01/27/19 at 00:00 Clonazepam (KlonoPIN) 0.125 mg TID PO Last administered on 02/19/19 08:41; Start 01/27/19 at 09:00; Stop 02/19/19 at 12:07; Status DC Paroxetine HCl (Paxil) 40 mg DAILY PO Last administered on 02/01/19 08:27; Start 01/27/19 at 09:00; Stop 02/01/19 at 18:49; Status DC Trazodone HCl (Desyrel) 12.5 mg QHS PO ; Start 01/27/19 at 21:00; Stop 01/27/19 at 21:00; Status DC Olanzapine (ZyPREXA ZYDIS) 2.5 mg PRN Q2HR PRN PO PSYCHOSIS Last administered on 01/31/19 08:47; Start 01/27/19 at 01:00; Stop 01/31/19 at 20:14; Status DC Acetaminophen (Tylenol) 650 mg PRN QID PRN PO PAIN Last administered on 20:59; Start 01/27/19 at 01:00 Albuterol Sulfate (Ventolin) 1 mg PRN Q6HRS PRN INH SHORTNESS OF BREATH; Start 01/27/19 at 01:00 Aspirin (Hira Aspirin) 325 mg DAILYWBKFT PO Last administered on 02/01/19 08: 27; Start 01/27/19 at 08:00; Stop 02/01/19 at 13:38; Status DC Clonidine HCl (Catapres) 0.1 mg PRN DAILY PRN PO HYPERTENSION, SEE COMMENTS Last administered on 02/26/19 04:18; Start 01/27/19 at 01:00 Clopidogrel Bisulfate (Plavix) 75 mg DAILY PO Last administered on 03/04/19 07: 59; Start 01/27/19 at 09:00 Gabapentin (Neurontin) 100 mg BID94 PO Last administered on 02/05/19 08:34; Start 01/27/19 at 09:00; Stop 02/05/19 at 16:10; Status DC Gabapentin (Neurontin) 100 mg QHS PO Last administered on 02/04/19 20:17; Start 01/27/19 at 21:00; Stop 02/05/19 at 16:10; Status DC Levothyroxine Sodium (Synthroid) 75 mcg DAILY06 PO Last administered on 05:44; Start 01/27/19 at 06:00 Losartan Potassium (Cozaar) 50 mg DAILY PO Last administered on 01/27/19 13:26 ; Start 01/27/19 at 09:00; Stop 01/27/19 at 14:32; Status DC Tamsulosin HCl (Flomax) 0.4 mg DAILY PO Last administered on 02/05/19 08:34; Start 01/27/19 at 09:00; Stop 02/05/19 at 16:10; Status DC Multivitamins/ Minerals (I-Alis) 1 tab BID PO Last administered on 03/04/19 21: 21; Start 01/27/19 at 09:00 Allopurinol (Zyloprim) 150 mg DAILY PO Last administered on 03/04/19 08:04; Start 01/27/19 at 09:00 Non-Formulary Medication (Aloe Vera/ Collagen (Sensi-Care Perineal Cleanser)) 1 edyta BID TP ; Start 01/27/19 at 09:00; Stop 01/27/19 at 09:00; Status DC Atenolol (Tenormin) 100 mg DAILY PO Last administered on 03/04/19 07:59; Start 01/27/19 at 09:00 Atorvastatin Calcium (Lipitor) 40 mg HS PO Last administered on 03/04/19 21:21 ; Start 01/27/19 at 21:00 Brimonidine Tartrate (Alphagan) 1 drop BID OD ; Start 01/27/19 at 09:00; Stop at 12:36; Status DC Dorzolamide HCl (Trusopt) 1 drop BID OD ; Start 01/27/19 at 09:00; Stop at 12:39; Status DC Finasteride (Proscar) 5 mg DAILY PO Last administered on 02/05/19 08:34; Start 01/27/19 at 09:00; Stop 02/05/19 at 16:10; Status DC Folic Acid (Folic Acid) 1 mg DAILY PO Last administered on 02/01/19 08:26; Start 01/27/19 at 09:00; Stop 02/01/19 at 13:38; Status DC Hydrochlorothiazide (Microzide) 12.5 mg DAILY PO Last administered on 13:27; Start 01/27/19 at 09:00; Stop 01/27/19 at 14:32; Status DC Lactobacillus Rhamnosus (Culturelle) 1 cap DAILY PO Last administered on 08:34; Start 01/27/19 at 09:00; Stop 02/05/19 at 16:10; Status DC Latanoprost (Xalatan) 1 drop QHS OU Last administered on 03/04/19 21:24; Start 01/27/19 at 21:00 Multivitamins/ Calcium (Thera-M Plus) 1 tab DAILY PO Last administered on 08:26; Start 01/27/19 at 09:00; Stop 02/01/19 at 13:38; Status DC Pantoprazole Sodium (Protonix) 40 mg DAILYAC PO Last administered on 01/28/19 10:03; Start 01/27/19 at 07:30; Stop 01/29/19 at 11:24; Status DC Pilocarpine HCl (Pilocar) 1 drop TID OD ; Start 01/27/19 at 09:00; Stop at 12:38; Status DC Timolol Maleate (Timoptic 0.5% Ophth) 1 drop BID OD Last administered on 21:23; Start 01/27/19 at 07:15 Brimonidine Tartrate (Alphagan) 1 drop BID OU Last administered on 03/04/19 21: 24; Start 01/27/19 at 12:36 Pilocarpine HCl (Pilocar) 1 drop TID OU Last administered on 03/04/19 21:26; Start 01/27/19 at 12:38 Dorzolamide HCl (Trusopt) 1 drop TID OU Last administered on 02/05/19 14:00; Start 01/27/19 at 14:00; Stop 02/05/19 at 16:11; Status DC Olanzapine (ZyPREXA ZYDIS) 2.5 mg PRN Q2HR PRN PO PSYCHOSIS; Start 01/27/19 at 17:30; Stop 01/29/19 at 17:13; Status DC Trazodone HCl (Desyrel) 50 mg PRN QHS PRN PO INSOMNIA, MAY REPEAT X1 Last administered on 03/03/19 21:36; Start 01/27/19 at 17:30 Mirtazapine (Remeron) 7.5 mg QHS PO Last administered on 01/31/19 19:55; Start 01/28/19 at 21:00; Stop 02/01/19 at 18:50; Status DC Lansoprazole (Prevacid) 30 mg DAILYAC PO Last administered on 03/04/19 08:09; Start 01/30/19 at 07:30 Tuberculin PPD (Tubersol) 0.1 ml 1X ONCE ID Last administered on 01/30/19 15: 14; Start 01/30/19 at 14:45; Stop 01/30/19 at 14:52; Status DC Lidocaine (Lidoderm) 1 patch DAILY TD Last administered on 03/04/19 07:59; Start 01/31/19 at 18:00 Miscellaneous (Lidoderm Patch Removal) 1 ea QHS MC Last administered on 21:00; Start 02/01/19 at 03:00 Olanzapine (ZyPREXA ZYDIS) 5 mg PRN Q2HR PRN PO PSYCHOSIS Last administered on 02/27/19 23:04; Start 01/31/19 at 20:15 Aspirin (Children'S Aspirin) 81 mg DAILYWBKFT PO Last administered on 03/04/19 07:59; Start 02/02/19 at 08:00 Paroxetine HCl (Paxil) 30 mg DAILY PO Last administered on 02/04/19 11:29; Start 02/02/19 at 09:00; Stop 02/04/19 at 12:49; Status DC Mirtazapine (Remeron) 15 mg QHS PO Last administered on 03/04/19 21:21; Start 02/01/19 at 21:00 Clonazepam (KlonoPIN) 0.25 mg 1X ONCE PO Last administered on 02/01/19 23:48; Start 02/02/19 at 00:00; Stop 02/02/19 at 00:01; Status DC Clonazepam (KlonoPIN) 0.25 mg 1X ONCE PO Last administered on 02/02/19 01:47; Start 02/02/19 at 02:00; Stop 02/02/19 at 02:01; Status DC Olanzapine (ZyPREXA IM) 5 mg DAILY IM ; Start 02/04/19 at 09:00; Stop 02/04/19 at 09:00; Status DC Lorazepam (Ativan) 0.5 mg DAILY IM ; Start 02/04/19 at 09:00; Stop 02/04/19 at 09: 00; Status DC Lorazepam (Ativan) 0.5 mg DAILY IM Last administered on 02/25/19at 08:13; Start 02/03/19 at 11:45; Stop 02/26/19 at 11:11; Status DC Olanzapine (ZyPREXA IM) 5 mg DAILY IM Last administered on 02/03/19at 11:44; Start 02/03/19 at 11:45; Stop 02/05/19 at 18:32; Status DC Paroxetine HCl (Paxil) 20 mg DAILY PO Last administered on 02/08/19at 07:36; Start 02/05/19 at 09:00; Stop 02/08/19 at 08:59; Status DC Paroxetine HCl (Paxil) 10 mg DAILY PO Last administered on 02/10/19 12:23; Start 02/08/19 at 09:00; Stop 02/11/19 at 08:59; Status DC Paroxetine HCl (Paxil) 5 mg DAILY PO Last administered on 02/13/19 09:10; Start 02/11/19 at 09:00; Stop 02/14/19 at 08:59; Status DC Tamsulosin HCl (Flomax) 0.4 mg QHS PO Last administered on 03/04/19 21:21; Start 02/05/19 at 21:00 Dorzolamide HCl (Trusopt) 1 drop BID OU Last administered on 03/04/19 21:23; Start 02/05/19 at 21:00 Nystatin (Nystop) 15 edyta STK-MED ONCE TP Last administered on 02/05/19 21:04; Start 02/05/19 at 21:04; Stop 02/05/19 at 21:05; Status DC Nystatin (Nystop) 1 edyta BID TP Last administered on 03/04/19 21:26; Start at 21:30 Divalproex Sodium (Depakote Sprinkles) 125 mg 1500 PO Last administered on 3/27 /19at 14:53; Start 02/17/19 at 15:00; Stop 02/26/19 at 11:19; Status DC Clonazepam (KlonoPIN) 0.25 mg TID PO Last administered on 03/04/19at 21:23; Start 02/19/19 at 14:00 Loperamide HCl (Imodium) 2 mg PRN Q15MIN PRN PO DIARRHEA; Start 02/21/19 at 22: 15 Divalproex Sodium (Depakote Sprinkles) 125 mg 1500,2100 PO Last administered on 03/04/19at 21:21; Start 02/26/19 at 15:00 Active Scripts Active Reported Sensi-Care Perineal Cleanser (Aloe Vera/Collagen) 118 Ml Solution 1 Edyta TP BID Paroxetine Hcl 40 Mg Tablet 40 Mg PO DAILY Trazodone Hcl 50 Mg Tablet 12.5 Mg PO QHS Dorzolamide Hcl 10 Ml Drops 1 Drp OD BID Timoptic (Timolol Maleate) 10 Ml Drops 1 Drp OD BID Pilocarpine Hcl 5 Mg Tablet 1 Drop OD TID Latanoprost 2.5 Ml Drops 1 Drop OU QHS Alphagan P (Brimonidine Tartrate) 5 Ml Drops 1 Drop OD BID Pantoprazole Sodium 40 Mg Tablet.dr 40 Mg PO DAILY Cozaar (Losartan Potassium) 50 Mg Tablet 50 Mg PO DAILY Levothyroxine Sodium 75 Mcg Tablet 75 Mcg PO DAILYAC Culturelle (Lactobacillus Rhamnosus Gg) 1 Each Capsule 1 Each PO DAILY Gabapentin (Gabapentin) 100 Mg Capsule 100 Mg PO QHS Gabapentin (Gabapentin) 100 Mg Capsule 100 Mg PO BID Finasteride 5 Mg Tablet 5 Mg PO DAILY Clonidine Hcl 0.1 Mg Tablet 0.1 Mg PO PRN DAILY PRN Lipitor (Atorvastatin Calcium) 40 Mg Tablet 40 Mg PO DAILY Atenolol 100 Mg Tablet 100 Mg PO DAILY Allopurinol 300 Mg Tablet 150 Mg PO DAILY Proair Hfa Inhaler (Albuterol Sulfate) 8.5 Gm Hfa.aer.ad 1 Puff INH PRN Q6HRS PRN Multivitamins (Multivitamin) 1 Each Tablet 1 Each PO DAILY Aspirin 325 Mg Tablet 325 Mg PO DAILY Folic Acid 1 Mg Tablet 1 Mg PO DAILY Clopidogrel (Clopidogrel Bisulfate) 75 Mg Tablet 75 Mg PO DAILY Macuvite [employer] Tablet (A/C/E/Zinc Ox/Cupric Ox/Lutein) 1 Each Tablet 1 Each PO BID Tylenol (Acetaminophen) 325 Mg Tablet 650 Mg PO PRN QID PRN Clonazepam 0.125 Mg Tab.rapdis 0.125 Mg PO TID Tamsulosin Hcl 0.4 Mg Cap.er.24h 0.4 Mg PO DAILY Hydrochlorothiazide Tablet (Hydrochlorothiazide) 12.5 Mg Tablet 12.5 Mg PO DAILY I have reviewed the current psychotropics carefully including drug interactions. Risk benefit ratio favors no change other than as noted in my dictated progress note. Diagnosis: Problems: (1) Medical clearance for psychiatric admission (2) Anxiety disorder (3) Dementia with behavioral disturbance (4) Dementia, vascular, with delusions (5) Dementia, vascular, with depression (6) Dementia in Alzheimer's disease with delusions (7) Dementia in Alzheimer's disease with depression (8) Impulse control disorder PAOLO THOMAS MD Mar 04, 2019 22:34
[2019-03-05 06:03] VITALS: BP 153/70
[2019-03-05] MEDS: LEVOTHYROXINE 75 MCG TABLET PO SCH (06:06)
[2019-03-05] MEDS: CLOPIDOGREL BISULFATE 75 MG TABLET PO SCH (08:50)
[2019-03-05] MEDS: MULTIVITAMIN I-VITE TABLET. PO SCH ×2 (08:50→20:11)
[2019-03-05] MEDS: ATENOLOL 50 MG TABLET PO SCH (08:50)
[2019-03-05] MEDS: ALLOPURINOL 100 MG TABLET. PO SCH (08:50)
[2019-03-05] MEDS: ASPIRIN 81 MG TAB.CHEW PO SCH (08:50)
[2019-03-05] MEDS: LANSOPRAZOLE 30 MG TAB.RAP.DR PO SCH (08:51)
[2019-03-05] MEDS: LIDOCAINE (700MG/PATCH) PATCH. TD SCH (08:54)
[2019-03-05] MEDS: NYSTATIN TOPICAL POWDER 15GM BOTTLE. TP SCH ×2 (08:54→20:15)
[2019-03-05] MEDS: clonazePAM 0.5 MG TABLET PO SCH ×3 (08:56→20:13)
[2019-03-05] MEDS: DORZOLAMIDE 2% OPHTH SOLUTION 10ML BOTTLE. OU SCH ×2 (08:58→20:14)
[2019-03-05] MEDS: BRIMONIDINE 0.2% OPHTH SOLUTION 5ML BOTTLE. OU SCH ×2 (08:58→20:14)
[2019-03-05] MEDS: TIMOLOL 0.5% OPHTH SOLUTION 5ML BOTTLE. OD SCH ×2 (08:58→20:14)
[2019-03-05] MEDS: PILOCARPINE 1% OPHTH SOLUTION 15ML BOTTLE. OU SCH ×3 (08:59→20:14)
--- NOTE | 2019-03-05 10:05 | NUR ---
WEEKLY ACTIVITY THERAPY NOTE Date of Admission: 01/27/2019 Date of AT Assessment: 01/30/2019 Goal aimed: To increase time management and recreation education. Initial goal: Pt. will participate in at least three (Activity Therapy) groups or individual activities per week. Goal changed 02/19/2019- Pt. will participate in at least three one on one Activity Therapy sessions before discharge. Weekly progress towards goal: on track 0 attempt Group participation level: zero to minimal Weekly highlights: present during group on Saturday, alert and social with Neuroscience Specialist, holding pool noodle Beneficial adaptations: TBD Behaviors observed: often sleeping, asking if he is going to be leaving soon, more calm and pleasant mood this week Plan: no change to goal
--- NOTE | 2019-03-05 11:05 | NUR ---
WEEKLY NOTE: Pt dtr, Velma, participated in tx team in person. Pt is eating and sleeping well. Pt does attend more groups and has been more pleasant with his interactions. Pt has not had any recent behaviors of combativeness; however, pt continues to have wound care needs that will need to be met at whichever facility that will approve for pt placement. It is reported that pt has had over half a dozen referrals sent out to facilities and other Memory Care units. [facility] is as soon as placement can be found.
--- NOTE | 2019-03-05 13:22 | NUR ---
Per family request, faxed referral to Gen at [facility] for review. Gen will be out on 03/06/19 at 1:45pm to do an onsite evaluation of Kevan. Per family request, call placed to Nadeen at [facility] with intention to complete referral. Nadeen indicated she would call this worker back once she was out of her meeting. Awaiting return phone call.
--- NOTE | 2019-03-05 13:33 | NUR ---
Behavior Intervention Response and Plan: BIRP Note: Behavior: Assumed Care of patient, patient located in Patient Room at shift change. Patient exhibited the following behavior Calm, Able to Focus on Task, Compliant. Brief assessment on rounds of vital signs, medication needs, lab studies, and pain. Treatment plan problems . Intervention: Patient assessed and the following interventions initiated safety checks 15 Minute Checks Head to toe Assessment , Cognitive Assessment , Medications. Response: After interactions and interventions patient responded in the following manner, Calm, Appropriate, Cooperative. Continue to assess behaviors and condition will continue to monitor throughout the shift as needed. Patient educated on ADL's, and hand hygiene. Plan: Continue to monitor Master Treatment Plan for patient's progress toward short term goals of Improved Mood, Decreased Aggression, retirement goals to return to previous living setting vs placement. Continue to assess patient for changes in above assessment. Monitor for medication needs, pain, and safety concerns. Hourly rounding performed to ensure safe environment.
--- NOTE | 2019-03-05 14:42 | NUR ---
Referral completed to Kurt at [facility] located at [address] [id number]. Awaiting admit decision.
[2019-03-05] MEDS: DIVALPROEX 125 MG CAP.SPRINK PO SCH ×2 (15:02→20:13)
[2019-03-05 16:14] VITALS: BP 159/62
[2019-03-05] MEDS: PATCH REMOVAL. MC SCH (20:11)
[2019-03-05] MEDS: TAMSULOSIN 0.4 MG CAP.ER.24H. PO SCH (20:11)
[2019-03-05] MEDS: MIRTAZAPINE 15 MG TABLET PO SCH (20:11)
[2019-03-05] MEDS: ATORVASTATIN CALCIUM 20 MG TABLET PO SCH (20:11)
[2019-03-05] MEDS: LATANOPROST 0.005% OPHTH SOLUTION 2.5ML BOTTLE. OU SCH (20:15)
--- NOTE | 2019-03-05 20:15 | NUR ---
Pt sleeping in bed at time of assessment and medication administration. Wounds noted, dressings intact. Feet elevated with pillow and in heel medix boots. Pt compliant with medications whole, taking a few at a time. All eyedrops administered. Pt compliant with assessment completed.
--- NOTE | 2019-03-05 22:42 | PDOC ---
Exam Note: Scott Note: Please also refer to the separate dictated note~for this date of service dictated separately.~Patient seen individually. Discussed the patient with Nursing staff reviewed the chart.~Reviewed interim history and current functioning. Reviewed vital signs,~Labs/ Radiology~and current medications noted below. Continue current treatment with the changes noted in the dictated addendum note Assessment: Vital Signs: Vital Signs Date Time Temp Pulse Resp B/P (MAP) Pulse Ox O2 Delivery O2 Flow Rate FiO2 03/05/19 16:14 98.0 60 20 159/62 (94) 97 Room Air I&O Intake and Output 03/05/19 07:00 Intake Total 840 ml Balance 840 ml Intake Oral 840 ml # Voids 3 # Bowel Movements 1 Labs: Laboratory Tests Test 03/05/19 07:28 Glucose (Fingerstick) 90 mg/dL (70-99) Current Medications: Meds: Current Medications Sodium Chloride 1,000 ml @ 1,000 mls/hr 1X ONCE IV Last administered on at 17:31; Start 01/26/19 at 17:30; Stop 01/26/19 at 18:29; Status DC Lorazepam (Ativan) 1 mg 1X ONCE IV Last administered on 01/26/19at 21:22; Start 01/26/19 at 21:15; Stop 01/26/19 at 21:23; Status DC Lorazepam (Ativan) 1 mg 1X ONCE IV Last administered on 01/26/19at 22:44; Start 01/26/19 at 22:30; Stop 01/26/19 at 22:32; Status DC Acetaminophen (Tylenol) 650 mg PRN Q6HRS PRN PO PAIN / TEMP; Start 01/27/19 at 00:00; Status Cancel Multi-Ingredient Ointment (Analgesic [place]) 1 edyta PRN QID PRN TP MUSCLE PAIN; Start 01/27/19 at 00:00 Al Hydroxide/Mg Hydroxide (Mylanta Plus Xs) 15 ml PRN AFTMEALHC PRN PO DYSPEPSIA; Start 01/27/19 at 00:00 Magnesium Hydroxide (Milk Of Magnesia) 2,400 mg PRN QHS PRN PO CONSTIPATION Last administered on 02/03/19at 08:05; Start 01/27/19 at 00:00 Clonazepam (KlonoPIN) 0.125 mg TID PO Last administered on 02/19/19 08:41; Start 01/27/19 at 09:00; Stop 02/19/19 at 12:07; Status DC Paroxetine HCl (Paxil) 40 mg DAILY PO Last administered on 02/01/19 08:27; Start 01/27/19 at 09:00; Stop 02/01/19 at 18:49; Status DC Trazodone HCl (Desyrel) 12.5 mg QHS PO ; Start 01/27/19 at 21:00; Stop 01/27/19 at 21:00; Status DC Olanzapine (ZyPREXA ZYDIS) 2.5 mg PRN Q2HR PRN PO PSYCHOSIS Last administered on 01/31/19 08:47; Start 01/27/19 at 01:00; Stop 01/31/19 at 20:14; Status DC Acetaminophen (Tylenol) 650 mg PRN QID PRN PO PAIN Last administered on 20:59; Start 01/27/19 at 01:00 Albuterol Sulfate (Ventolin) 1 mg PRN Q6HRS PRN INH SHORTNESS OF BREATH; Start 01/27/19 at 01:00 Aspirin (Hira Aspirin) 325 mg DAILYWBKFT PO Last administered on 02/01/19 08: 27; Start 01/27/19 at 08:00; Stop 02/01/19 at 13:38; Status DC Clonidine HCl (Catapres) 0.1 mg PRN DAILY PRN PO HYPERTENSION, SEE COMMENTS Last administered on 02/26/19 04:18; Start 01/27/19 at 01:00 Clopidogrel Bisulfate (Plavix) 75 mg DAILY PO Last administered on 03/05/19 08: 50; Start 01/27/19 at 09:00 Gabapentin (Neurontin) 100 mg BID94 PO Last administered on 02/05/19 08:34; Start 01/27/19 at 09:00; Stop 02/05/19 at 16:10; Status DC Gabapentin (Neurontin) 100 mg QHS PO Last administered on 02/04/19 20:17; Start 01/27/19 at 21:00; Stop 02/05/19 at 16:10; Status DC Levothyroxine Sodium (Synthroid) 75 mcg DAILY06 PO Last administered on 06:06; Start 01/27/19 at 06:00 Losartan Potassium (Cozaar) 50 mg DAILY PO Last administered on 01/27/19 13:26 ; Start 01/27/19 at 09:00; Stop 01/27/19 at 14:32; Status DC Tamsulosin HCl (Flomax) 0.4 mg DAILY PO Last administered on 02/05/19 08:34; Start 01/27/19 at 09:00; Stop 02/05/19 at 16:10; Status DC Multivitamins/ Minerals (I-Alis) 1 tab BID PO Last administered on 03/05/19 20: 11; Start 01/27/19 at 09:00 Allopurinol (Zyloprim) 150 mg DAILY PO Last administered on 03/05/19 08:50; Start 01/27/19 at 09:00 Non-Formulary Medication (Aloe Vera/ Collagen (Sensi-Care Perineal Cleanser)) 1 edyta BID TP ; Start 01/27/19 at 09:00; Stop 01/27/19 at 09:00; Status DC Atenolol (Tenormin) 100 mg DAILY PO Last administered on 03/05/19 08:50; Start 01/27/19 at 09:00 Atorvastatin Calcium (Lipitor) 40 mg HS PO Last administered on 03/05/19 20:11 ; Start 01/27/19 at 21:00 Brimonidine Tartrate (Alphagan) 1 drop BID OD ; Start 01/27/19 at 09:00; Stop at 12:36; Status DC Dorzolamide HCl (Trusopt) 1 drop BID OD ; Start 01/27/19 at 09:00; Stop at 12:39; Status DC Finasteride (Proscar) 5 mg DAILY PO Last administered on 02/05/19 08:34; Start 01/27/19 at 09:00; Stop 02/05/19 at 16:10; Status DC Folic Acid (Folic Acid) 1 mg DAILY PO Last administered on 02/01/19 08:26; Start 01/27/19 at 09:00; Stop 02/01/19 at 13:38; Status DC Hydrochlorothiazide (Microzide) 12.5 mg DAILY PO Last administered on 13:27; Start 01/27/19 at 09:00; Stop 01/27/19 at 14:32; Status DC Lactobacillus Rhamnosus (Culturelle) 1 cap DAILY PO Last administered on 08:34; Start 01/27/19 at 09:00; Stop 02/05/19 at 16:10; Status DC Latanoprost (Xalatan) 1 drop QHS OU Last administered on 03/05/19 20:15; Start 01/27/19 at 21:00 Multivitamins/ Calcium (Thera-M Plus) 1 tab DAILY PO Last administered on 08:26; Start 01/27/19 at 09:00; Stop 02/01/19 at 13:38; Status DC Pantoprazole Sodium (Protonix) 40 mg DAILYAC PO Last administered on 01/28/19 10:03; Start 01/27/19 at 07:30; Stop 01/29/19 at 11:24; Status DC Pilocarpine HCl (Pilocar) 1 drop TID OD ; Start 01/27/19 at 09:00; Stop at 12:38; Status DC Timolol Maleate (Timoptic 0.5% Oph) 1 drop BID OD Last administered on 20:14; Start 01/27/19 at 07:15 Brimonidine Tartrate (Alphagan) 1 drop BID OU Last administered on 03/05/19 20: 14; Start 01/27/19 at 12:36 Pilocarpine HCl (Pilocar) 1 drop TID OU Last administered on 03/05/19 20:14; Start 01/27/19 at 12:38 Dorzolamide HCl (Trusopt) 1 drop TID OU Last administered on 02/05/19 14:00; Start 01/27/19 at 14:00; Stop 02/05/19 at 16:11; Status DC Olanzapine (ZyPREXA ZYDIS) 2.5 mg PRN Q2HR PRN PO PSYCHOSIS; Start 01/27/19 at 17:30; Stop 01/29/19 at 17:13; Status DC Trazodone HCl (Desyrel) 50 mg PRN QHS PRN PO INSOMNIA, MAY REPEAT X1 Last administered on 03/03/19 21:36; Start 01/27/19 at 17:30 Mirtazapine (Remeron) 7.5 mg QHS PO Last administered on 01/31/19 19:55; Start 01/28/19 at 21:00; Stop 02/01/19 at 18:50; Status DC Lansoprazole (Prevacid) 30 mg DAILYAC PO Last administered on 03/05/19 08:51; Start 01/30/19 at 07:30 Tuberculin PPD (Tubersol) 0.1 ml 1X ONCE ID Last administered on 01/30/19 15: 14; Start 01/30/19 at 14:45; Stop 01/30/19 at 14:52; Status DC Lidocaine (Lidoderm) 1 patch DAILY TD Last administered on 03/04/19 07:59; Start 01/31/19 at 18:00 Miscellaneous (Lidoderm Patch Removal) 1 ea QHS MC Last administered on 20:11; Start 02/01/19 at 03:00 Olanzapine (ZyPREXA ZYDIS) 5 mg PRN Q2HR PRN PO PSYCHOSIS Last administered on 02/27/19 23:04; Start 01/31/19 at 20:15 Aspirin (Children'S Aspirin) 81 mg DAILYWBKFT PO Last administered on 03/05/19 08:50; Start 02/02/19 at 08:00 Paroxetine HCl (Paxil) 30 mg DAILY PO Last administered on 02/04/19 11:29; Start 02/02/19 at 09:00; Stop 02/04/19 at 12:49; Status DC Mirtazapine (Remeron) 15 mg QHS PO Last administered on 03/05/19 20:11; Start 02/01/19 at 21:00 Clonazepam (KlonoPIN) 0.25 mg 1X ONCE PO Last administered on 02/01/19 23:48; Start 02/02/19 at 00:00; Stop 02/02/19 at 00:01; Status DC Clonazepam (KlonoPIN) 0.25 mg 1X ONCE PO Last administered on 02/02/19 01:47; Start 02/02/19 at 02:00; Stop 02/02/19 at 02:01; Status DC Olanzapine (ZyPREXA IM) 5 mg DAILY IM ; Start 02/04/19 at 09:00; Stop 02/04/19 at 09:00; Status DC Lorazepam (Ativan) 0.5 mg DAILY IM ; Start 02/04/19 at 09:00; Stop 02/04/19 at 09: 00; Status DC Lorazepam (Ativan) 0.5 mg DAILY IM Last administered on 02/25/19 08:13; Start 02/03/19 at 11:45; Stop 02/26/19 at 11:11; Status DC Olanzapine (ZyPREXA IM) 5 mg DAILY IM Last administered on 02/03/19at 11:44; Start 02/03/19 at 11:45; Stop 02/05/19 at 18:32; Status DC Paroxetine HCl (Paxil) 20 mg DAILY PO Last administered on 02/08/19 07:36; Start 02/05/19 at 09:00; Stop 02/08/19 at 08:59; Status DC Paroxetine HCl (Paxil) 10 mg DAILY PO Last administered on 02/10/19 12:23; Start 02/08/19 at 09:00; Stop 02/11/19 at 08:59; Status DC Paroxetine HCl (Paxil) 5 mg DAILY PO Last administered on 02/13/19 09:10; Start 02/11/19 at 09:00; Stop 02/14/19 at 08:59; Status DC Tamsulosin HCl (Flomax) 0.4 mg QHS PO Last administered on 03/05/19 20:11; Start 02/05/19 at 21:00 Dorzolamide HCl (Trusopt) 1 drop BID OU Last administered on 03/05/19 20:14; Start 02/05/19 at 21:00 Nystatin (Nystop) 15 edyta STK-MED ONCE TP Last administered on 02/05/19 21:04; Start 02/05/19 at 21:04; Stop 02/05/19 at 21:05; Status DC Nystatin (Nystop) 1 edyta BID TP Last administered on 03/05/19 20:15; Start at 21:30 Divalproex Sodium (Depakote Sprinkles) 125 mg 1500 PO Last administered on 3/27 /19at 14:53; Start 02/17/19 at 15:00; Stop 02/26/19 at 11:19; Status DC Clonazepam (KlonoPIN) 0.25 mg TID PO Last administered on 03/05/19at 20:13; Start 02/19/19 at 14:00 Loperamide HCl (Imodium) 2 mg PRN Q15MIN PRN PO DIARRHEA; Start 02/21/19 at 22: 15 Divalproex Sodium (Depakote Sprinkles) 125 mg 1500,2100 PO Last administered on 03/05/19at 20:13; Start 02/26/19 at 15:00 Active Scripts Active Reported Sensi-Care Perineal Cleanser (Aloe Vera/Collagen) 118 Ml Solution 1 Edyta TP BID Paroxetine Hcl 40 Mg Tablet 40 Mg PO DAILY Trazodone Hcl 50 Mg Tablet 12.5 Mg PO QHS Dorzolamide Hcl 10 Ml Drops 1 Drp OD BID Timoptic (Timolol Maleate) 10 Ml Drops 1 Drp OD BID Pilocarpine Hcl 5 Mg Tablet 1 Drop OD TID Latanoprost 2.5 Ml Drops 1 Drop OU QHS Alphagan P (Brimonidine Tartrate) 5 Ml Drops 1 Drop OD BID Pantoprazole Sodium 40 Mg Tablet.dr 40 Mg PO DAILY Cozaar (Losartan Potassium) 50 Mg Tablet 50 Mg PO DAILY Levothyroxine Sodium 75 Mcg Tablet 75 Mcg PO DAILYAC Culturelle (Lactobacillus Rhamnosus Gg) 1 Each Capsule 1 Each PO DAILY Gabapentin (Gabapentin) 100 Mg Capsule 100 Mg PO QHS Gabapentin (Gabapentin) 100 Mg Capsule 100 Mg PO BID Finasteride 5 Mg Tablet 5 Mg PO DAILY Clonidine Hcl 0.1 Mg Tablet 0.1 Mg PO PRN DAILY PRN Lipitor (Atorvastatin Calcium) 40 Mg Tablet 40 Mg PO DAILY Atenolol 100 Mg Tablet 100 Mg PO DAILY Allopurinol 300 Mg Tablet 150 Mg PO DAILY Proair Hfa Inhaler (Albuterol Sulfate) 8.5 Gm Hfa.aer.ad 1 Puff INH PRN Q6HRS PRN Multivitamins (Multivitamin) 1 Each Tablet 1 Each PO DAILY Aspirin 325 Mg Tablet 325 Mg PO DAILY Folic Acid 1 Mg Tablet 1 Mg PO DAILY Clopidogrel (Clopidogrel Bisulfate) 75 Mg Tablet 75 Mg PO DAILY Macuvite [employer] Tablet (A/C/E/Zinc Ox/Cupric Ox/Lutein) 1 Each Tablet 1 Each PO BID Tylenol (Acetaminophen) 325 Mg Tablet 650 Mg PO PRN QID PRN Clonazepam 0.125 Mg Tab.rapdis 0.125 Mg PO TID Tamsulosin Hcl 0.4 Mg Cap.er.24h 0.4 Mg PO DAILY Hydrochlorothiazide Tablet (Hydrochlorothiazide) 12.5 Mg Tablet 12.5 Mg PO DAILY I have reviewed the current psychotropics carefully including drug interactions. Risk benefit ratio favors no change other than as noted in my dictated progress note. Diagnosis: Problems: (1) Medical clearance for psychiatric admission (2) Anxiety disorder (3) Dementia with behavioral disturbance (4) Dementia, vascular, with delusions (5) Dementia, vascular, with depression (6) Dementia in Alzheimer's disease with delusions (7) Dementia in Alzheimer's disease with depression (8) Impulse control disorder PAOLO THOMAS MD Mar 05, 2019 22:42
[2019-03-06 05:38] VITALS: BP 161/85
[2019-03-06] MEDS: LEVOTHYROXINE 75 MCG TABLET PO SCH (05:45)
[2019-03-06] MEDS: LANSOPRAZOLE 30 MG TAB.RAP.DR PO SCH (08:23)
[2019-03-06] MEDS: LIDOCAINE (700MG/PATCH) PATCH. TD SCH (08:23)
[2019-03-06] MEDS: ASPIRIN 81 MG TAB.CHEW PO SCH (08:23)
[2019-03-06] MEDS: CLOPIDOGREL BISULFATE 75 MG TABLET PO SCH (08:23)
[2019-03-06] MEDS: ATENOLOL 50 MG TABLET PO SCH (08:24)
[2019-03-06] MEDS: NYSTATIN TOPICAL POWDER 15GM BOTTLE. TP SCH ×2 (08:24→19:59)
[2019-03-06] MEDS: ALLOPURINOL 100 MG TABLET. PO SCH (08:26)
[2019-03-06] MEDS: MULTIVITAMIN I-VITE TABLET. PO SCH ×2 (08:26→19:59)
[2019-03-06] MEDS: clonazePAM 0.5 MG TABLET PO SCH ×3 (08:26→20:01)
[2019-03-06] MEDS: DORZOLAMIDE 2% OPHTH SOLUTION 10ML BOTTLE. OU SCH ×2 (09:01→20:00)
[2019-03-06] MEDS: PILOCARPINE 1% OPHTH SOLUTION 15ML BOTTLE. OU SCH ×3 (09:01→20:00)
[2019-03-06] MEDS: TIMOLOL 0.5% OPHTH SOLUTION 5ML BOTTLE. OD SCH ×2 (09:01→19:59)
[2019-03-06] MEDS: BRIMONIDINE 0.2% OPHTH SOLUTION 5ML BOTTLE. OU SCH ×2 (09:01→19:59)
--- NOTE | 2019-03-06 09:06 | NUR ---
Kevan was evaluated by Nadeen from [facility] this morning and accepted for placement. [employer] discharge date of 03/09/19 in order for family to complete paperwork and discharge arrangements and supplies to be in place. E-mailed Chino and Toyin to inform, awaiting reply.
--- NOTE | 2019-03-06 13:49 | NUR ---
Reviewed with Chino, son/POA. Chino is going to meet with Nadeen at [facility] this afternoon. However, Chino would like Miriam from [facility] to evaluate Kevan on 03/09/19, for placement. Left message for Miriam at [phone] with request for evaluation time on Saturday, awaiting return phone call.
[2019-03-06] MEDS: DIVALPROEX 125 MG CAP.SPRINK PO SCH ×2 (14:08→19:59)
--- NOTE | 2019-03-06 14:52 | NUR ---
Gen and Letty from [facility] evaluated Kevan this afternoon, they are going to review information and let this worker know admit decision. Awaiting outcome.
--- NOTE | 2019-03-06 16:20 | NUR ---
Received voice message from Miriam at [facility] indicating that the facility DON will be out on 03/09/19 at 10am to evaluate Kevan.
[2019-03-06 16:30] VITALS: BP 194/92
--- NOTE | 2019-03-06 18:21 | NUR ---
Pt was calm, cooperative, compliant and pleasant. Addendum: 03/06/19 at 1825 by PARAG VENEGAS RN RN Continued.... ...this morning. At approximately 1030, a facility came to assess pt and pt was under the impression that he was leaving today. Due to this misunderstanding, pt became agitated when he was told he was not leaving today. Pt spoke with his son on the phone and son explained that he was not leaving today and that he would be by at lunch time to visit him. Pt was given Zyprexa at 1105. Pt was slightly agitated in the afternoon when his some came to visit again and was given a zyprexa at approximately 1630.
--- NOTE | 2019-03-06 18:25 | PN ---
DATE: 03/04/2019 PSYCHIATRIC PROGRESS NOTE This late entry 03/04/2019 covers elements not covered in my initial note. SUBJECTIVE: I met with the patient in the evening in his room. He slept 8 hours previous night. REVIEW OF SYSTEMS: Hard of hearing, impaired ambulation, in wheelchair. No CV, , pulmonary, eye system symptoms on review. Reliability poor. MENTAL STATUS EXAM: Oriented to himself and situation. Speech has some latency, coherent, often responses monosyllabic. I had to talk loudly into his ear. Abstraction fair, computation impaired, language function intact, attention span short. Mood and affect remains somewhat withdrawn; however, as I met with him, he was aware that his son was out of the [place] and was able to tell me as before that his [id number], Toyin, was the one who took care of him. LABORATORY DATA: Reviewed. IMPRESSION: Unchanged from initial note. PLAN: No change from initial note. MAN Modesta THOMAS MD DR: [email or web address] JOB#: [id number] / [id number]
[2019-03-06] MEDS: PATCH REMOVAL. MC SCH (19:58)
[2019-03-06] MEDS: MIRTAZAPINE 15 MG TABLET PO SCH (19:59)
[2019-03-06] MEDS: ATORVASTATIN CALCIUM 20 MG TABLET PO SCH (19:59)
[2019-03-06] MEDS: TAMSULOSIN 0.4 MG CAP.ER.24H. PO SCH (19:59)
[2019-03-06] MEDS: LATANOPROST 0.005% OPHTH SOLUTION 2.5ML BOTTLE. OU SCH (20:00)
--- NOTE | 2019-03-06 20:00 | NUR ---
Behavior Intervention Response and Plan: BIRP Note: Behavior: Assumed Care of patient, patient located in Day Room at shift change. Patient exhibited the following behavior Calm, Compliant, Sleeping. Brief assessment on rounds of vital signs, medication needs, lab studies, and pain. Treatment plan problems . Intervention: Patient assessed and the following interventions initiated safety checks 15 Minute Checks Cognitive Assessment , Head to toe Assessment , Medications. Response: After interactions and interventions patient responded in the following manner, Calm , Compliant ,Sleeping. Continue to assess behaviors and condition will continue to monitor throughout the shift as needed. Patient educated on ADL's, and hand hygiene. 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 Continue to assess patient for changes in above assessment. Monitor for medication needs, pain, and safety concerns. Hourly rounding performed to ensure safe environment.
--- NOTE | 2019-03-06 22:37 | PDOC ---
Exam Note: Scott Note: Please also refer to the separate dictated note~for this date of service dictated separately.~Patient seen individually. Discussed the patient with Nursing staff reviewed the chart.~Reviewed interim history and current functioning. Reviewed vital signs,~Labs/ Radiology~and current medications noted below. Continue current treatment with the changes noted in the dictated addendum note Assessment: Vital Signs: Vital Signs Date Time Temp Pulse Resp B/P (MAP) Pulse Ox O2 Delivery O2 Flow Rate FiO2 03/06/19 16:30 97.6 78 18 194/92 (126) 97 03/06/19 05:38 Room Air I&O Intake and Output 03/06/19 07:00 Intake Total 600 ml Balance 600 ml Intake Oral 600 ml Labs: Laboratory Tests Test 03/06/19 07:01 Glucose (Fingerstick) 108 mg/dL (70-99) H Current Medications: Meds: Current Medications Sodium Chloride 1,000 ml @ 1,000 mls/hr 1X ONCE IV Last administered on at 17:31; Start 01/26/19 at 17:30; Stop 01/26/19 at 18:29; Status DC Lorazepam (Ativan) 1 mg 1X ONCE IV Last administered on 01/26/19at 21:22; Start 01/26/19 at 21:15; Stop 01/26/19 at 21:23; Status DC Lorazepam (Ativan) 1 mg 1X ONCE IV Last administered on 01/26/19at 22:44; Start 01/26/19 at 22:30; Stop 01/26/19 at 22:32; Status DC Acetaminophen (Tylenol) 650 mg PRN Q6HRS PRN PO PAIN / TEMP; Start 01/27/19 at 00:00; Status Cancel Multi-Ingredient Ointment (Analgesic [place]) 1 edyta PRN QID PRN TP MUSCLE PAIN; Start 01/27/19 at 00:00 Al Hydroxide/Mg Hydroxide (Mylanta Plus Xs) 15 ml PRN AFTMEALHC PRN PO DYSPEPSIA; Start 01/27/19 at 00:00 Magnesium Hydroxide (Milk Of Magnesia) 2,400 mg PRN QHS PRN PO CONSTIPATION Last administered on 02/03/19at 08:05; Start 01/27/19 at 00:00 Clonazepam (KlonoPIN) 0.125 mg TID PO Last administered on 02/19/19 08:41; Start 01/27/19 at 09:00; Stop 02/19/19 at 12:07; Status DC Paroxetine HCl (Paxil) 40 mg DAILY PO Last administered on 02/01/19 08:27; Start 01/27/19 at 09:00; Stop 02/01/19 at 18:49; Status DC Trazodone HCl (Desyrel) 12.5 mg QHS PO ; Start 01/27/19 at 21:00; Stop 01/27/19 at 21:00; Status DC Olanzapine (ZyPREXA ZYDIS) 2.5 mg PRN Q2HR PRN PO PSYCHOSIS Last administered on 01/31/19 08:47; Start 01/27/19 at 01:00; Stop 01/31/19 at 20:14; Status DC Acetaminophen (Tylenol) 650 mg PRN QID PRN PO PAIN Last administered on 20:59; Start 01/27/19 at 01:00 Albuterol Sulfate (Ventolin) 1 mg PRN Q6HRS PRN INH SHORTNESS OF BREATH; Start 01/27/19 at 01:00 Aspirin (Hira Aspirin) 325 mg DAILYWBKFT PO Last administered on 02/01/19 08: 27; Start 01/27/19 at 08:00; Stop 02/01/19 at 13:38; Status DC Clonidine HCl (Catapres) 0.1 mg PRN DAILY PRN PO HYPERTENSION, SEE COMMENTS Last administered on 02/26/19 04:18; Start 01/27/19 at 01:00 Clopidogrel Bisulfate (Plavix) 75 mg DAILY PO Last administered on 03/06/19 08: 23; Start 01/27/19 at 09:00 Gabapentin (Neurontin) 100 mg BID94 PO Last administered on 02/05/19 08:34; Start 01/27/19 at 09:00; Stop 02/05/19 at 16:10; Status DC Gabapentin (Neurontin) 100 mg QHS PO Last administered on 02/04/19 20:17; Start 01/27/19 at 21:00; Stop 02/05/19 at 16:10; Status DC Levothyroxine Sodium (Synthroid) 75 mcg DAILY06 PO Last administered on 05:45; Start 01/27/19 at 06:00 Losartan Potassium (Cozaar) 50 mg DAILY PO Last administered on 01/27/19 13:26 ; Start 01/27/19 at 09:00; Stop 01/27/19 at 14:32; Status DC Tamsulosin HCl (Flomax) 0.4 mg DAILY PO Last administered on 02/05/19 08:34; Start 01/27/19 at 09:00; Stop 02/05/19 at 16:10; Status DC Multivitamins/ Minerals (I-Alis) 1 tab BID PO Last administered on 03/06/19 19: 59; Start 01/27/19 at 09:00 Allopurinol (Zyloprim) 150 mg DAILY PO Last administered on 03/06/19 08:26; Start 01/27/19 at 09:00 Non-Formulary Medication (Aloe Vera/ Collagen (Sensi-Care Perineal Cleanser)) 1 edyta BID TP ; Start 01/27/19 at 09:00; Stop 01/27/19 at 09:00; Status DC Atenolol (Tenormin) 100 mg DAILY PO Last administered on 03/06/19 08:24; Start 01/27/19 at 09:00 Atorvastatin Calcium (Lipitor) 40 mg HS PO Last administered on 03/06/19 19:59 ; Start 01/27/19 at 21:00 Brimonidine Tartrate (Alphagan) 1 drop BID OD ; Start 01/27/19 at 09:00; Stop at 12:36; Status DC Dorzolamide HCl (Trusopt) 1 drop BID OD ; Start 01/27/19 at 09:00; Stop at 12:39; Status DC Finasteride (Proscar) 5 mg DAILY PO Last administered on 02/05/19 08:34; Start 01/27/19 at 09:00; Stop 02/05/19 at 16:10; Status DC Folic Acid (Folic Acid) 1 mg DAILY PO Last administered on 02/01/19 08:26; Start 01/27/19 at 09:00; Stop 02/01/19 at 13:38; Status DC Hydrochlorothiazide (Microzide) 12.5 mg DAILY PO Last administered on 13:27; Start 01/27/19 at 09:00; Stop 01/27/19 at 14:32; Status DC Lactobacillus Rhamnosus (Culturelle) 1 cap DAILY PO Last administered on 08:34; Start 01/27/19 at 09:00; Stop 02/05/19 at 16:10; Status DC Latanoprost (Xalatan) 1 drop QHS OU Last administered on 03/06/19 20:00; Start 01/27/19 at 21:00 Multivitamins/ Calcium (Thera-M Plus) 1 tab DAILY PO Last administered on 08:26; Start 01/27/19 at 09:00; Stop 02/01/19 at 13:38; Status DC Pantoprazole Sodium (Protonix) 40 mg DAILYAC PO Last administered on 01/28/19 10:03; Start 01/27/19 at 07:30; Stop 01/29/19 at 11:24; Status DC Pilocarpine HCl (Pilocar) 1 drop TID OD ; Start 01/27/19 at 09:00; Stop at 12:38; Status DC Timolol Maleate (Timoptic 0.5% Oph) 1 drop BID OD Last administered on 19:59; Start 01/27/19 at 07:15 Brimonidine Tartrate (Alphagan) 1 drop BID OU Last administered on 03/06/19 19: 59; Start 01/27/19 at 12:36 Pilocarpine HCl (Pilocar) 1 drop TID OU Last administered on 03/06/19 20:00; Start 01/27/19 at 12:38 Dorzolamide HCl (Trusopt) 1 drop TID OU Last administered on 02/05/19 14:00; Start 01/27/19 at 14:00; Stop 02/05/19 at 16:11; Status DC Olanzapine (ZyPREXA ZYDIS) 2.5 mg PRN Q2HR PRN PO PSYCHOSIS; Start 01/27/19 at 17:30; Stop 01/29/19 at 17:13; Status DC Trazodone HCl (Desyrel) 50 mg PRN QHS PRN PO INSOMNIA, MAY REPEAT X1 Last administered on 03/03/19 21:36; Start 01/27/19 at 17:30 Mirtazapine (Remeron) 7.5 mg QHS PO Last administered on 01/31/19 19:55; Start 01/28/19 at 21:00; Stop 02/01/19 at 18:50; Status DC Lansoprazole (Prevacid) 30 mg DAILYAC PO Last administered on 03/06/19 08:23; Start 01/30/19 at 07:30 Tuberculin PPD (Tubersol) 0.1 ml 1X ONCE ID Last administered on 01/30/19 15: 14; Start 01/30/19 at 14:45; Stop 01/30/19 at 14:52; Status DC Lidocaine (Lidoderm) 1 patch DAILY TD Last administered on 03/06/19 08:23; Start 01/31/19 at 18:00 Miscellaneous (Lidoderm Patch Removal) 1 ea QHS MC Last administered on 19:58; Start 02/01/19 at 03:00 Olanzapine (ZyPREXA ZYDIS) 5 mg PRN Q2HR PRN PO PSYCHOSIS Last administered on 03/06/19 16:45; Start 01/31/19 at 20:15 Aspirin (Children'S Aspirin) 81 mg DAILYWBKFT PO Last administered on 03/06/19 08:23; Start 02/02/19 at 08:00 Paroxetine HCl (Paxil) 30 mg DAILY PO Last administered on 02/04/19 11:29; Start 02/02/19 at 09:00; Stop 02/04/19 at 12:49; Status DC Mirtazapine (Remeron) 15 mg QHS PO Last administered on 03/06/19 19:59; Start 02/01/19 at 21:00 Clonazepam (KlonoPIN) 0.25 mg 1X ONCE PO Last administered on 02/01/19 23:48; Start 02/02/19 at 00:00; Stop 02/02/19 at 00:01; Status DC Clonazepam (KlonoPIN) 0.25 mg 1X ONCE PO Last administered on 02/02/19 01:47; Start 02/02/19 at 02:00; Stop 02/02/19 at 02:01; Status DC Olanzapine (ZyPREXA IM) 5 mg DAILY IM ; Start 02/04/19 at 09:00; Stop 02/04/19 at 09:00; Status DC Lorazepam (Ativan) 0.5 mg DAILY IM ; Start 02/04/19 at 09:00; Stop 02/04/19 at 09: 00; Status DC Lorazepam (Ativan) 0.5 mg DAILY IM Last administered on 02/25/19 08:13; Start 02/03/19 at 11:45; Stop 02/26/19 at 11:11; Status DC Olanzapine (ZyPREXA IM) 5 mg DAILY IM Last administered on 02/03/19at 11:44; Start 02/03/19 at 11:45; Stop 02/05/19 at 18:32; Status DC Paroxetine HCl (Paxil) 20 mg DAILY PO Last administered on 02/08/19 07:36; Start 02/05/19 at 09:00; Stop 02/08/19 at 08:59; Status DC Paroxetine HCl (Paxil) 10 mg DAILY PO Last administered on 02/10/19 12:23; Start 02/08/19 at 09:00; Stop 02/11/19 at 08:59; Status DC Paroxetine HCl (Paxil) 5 mg DAILY PO Last administered on 02/13/19 09:10; Start 02/11/19 at 09:00; Stop 02/14/19 at 08:59; Status DC Tamsulosin HCl (Flomax) 0.4 mg QHS PO Last administered on 03/06/19 19:59; Start 02/05/19 at 21:00 Dorzolamide HCl (Trusopt) 1 drop BID OU Last administered on 03/06/19 20:00; Start 02/05/19 at 21:00 Nystatin (Nystop) 15 edyta STK-MED ONCE TP Last administered on 02/05/19 21:04; Start 02/05/19 at 21:04; Stop 02/05/19 at 21:05; Status DC Nystatin (Nystop) 1 edyta BID TP Last administered on 03/06/19 19:59; Start at 21:30 Divalproex Sodium (Depakote Sprinkles) 125 mg 1500 PO Last administered on 3/27 /19at 14:53; Start 02/17/19 at 15:00; Stop 02/26/19 at 11:19; Status DC Clonazepam (KlonoPIN) 0.25 mg TID PO Last administered on 03/06/19at 20:01; Start 02/19/19 at 14:00 Loperamide HCl (Imodium) 2 mg PRN Q15MIN PRN PO DIARRHEA; Start 02/21/19 at 22: 15 Divalproex Sodium (Depakote Sprinkles) 125 mg 1500,2100 PO Last administered on 03/06/19at 19:59; Start 02/26/19 at 15:00 Active Scripts Active Reported Sensi-Care Perineal Cleanser (Aloe Vera/Collagen) 118 Ml Solution 1 Edyta TP BID Paroxetine Hcl 40 Mg Tablet 40 Mg PO DAILY Trazodone Hcl 50 Mg Tablet 12.5 Mg PO QHS Dorzolamide Hcl 10 Ml Drops 1 Drp OD BID Timoptic (Timolol Maleate) 10 Ml Drops 1 Drp OD BID Pilocarpine Hcl 5 Mg Tablet 1 Drop OD TID Latanoprost 2.5 Ml Drops 1 Drop OU QHS Alphagan P (Brimonidine Tartrate) 5 Ml Drops 1 Drop OD BID Pantoprazole Sodium 40 Mg Tablet.dr 40 Mg PO DAILY Cozaar (Losartan Potassium) 50 Mg Tablet 50 Mg PO DAILY Levothyroxine Sodium 75 Mcg Tablet 75 Mcg PO DAILYAC Culturelle (Lactobacillus Rhamnosus Gg) 1 Each Capsule 1 Each PO DAILY Gabapentin (Gabapentin) 100 Mg Capsule 100 Mg PO QHS Gabapentin (Gabapentin) 100 Mg Capsule 100 Mg PO BID Finasteride 5 Mg Tablet 5 Mg PO DAILY Clonidine Hcl 0.1 Mg Tablet 0.1 Mg PO PRN DAILY PRN Lipitor (Atorvastatin Calcium) 40 Mg Tablet 40 Mg PO DAILY Atenolol 100 Mg Tablet 100 Mg PO DAILY Allopurinol 300 Mg Tablet 150 Mg PO DAILY Proair Hfa Inhaler (Albuterol Sulfate) 8.5 Gm Hfa.aer.ad 1 Puff INH PRN Q6HRS PRN Multivitamins (Multivitamin) 1 Each Tablet 1 Each PO DAILY Aspirin 325 Mg Tablet 325 Mg PO DAILY Folic Acid 1 Mg Tablet 1 Mg PO DAILY Clopidogrel (Clopidogrel Bisulfate) 75 Mg Tablet 75 Mg PO DAILY Macuvite [employer] Tablet (A/C/E/Zinc Ox/Cupric Ox/Lutein) 1 Each Tablet 1 Each PO BID Tylenol (Acetaminophen) 325 Mg Tablet 650 Mg PO PRN QID PRN Clonazepam 0.125 Mg Tab.rapdis 0.125 Mg PO TID Tamsulosin Hcl 0.4 Mg Cap.er.24h 0.4 Mg PO DAILY Hydrochlorothiazide Tablet (Hydrochlorothiazide) 12.5 Mg Tablet 12.5 Mg PO DAILY I have reviewed the current psychotropics carefully including drug interactions. Risk benefit ratio favors no change other than as noted in my dictated progress note. Diagnosis: Problems: (1) Medical clearance for psychiatric admission (2) Anxiety disorder (3) Dementia with behavioral disturbance (4) Dementia, vascular, with delusions (5) Dementia, vascular, with depression (6) Dementia in Alzheimer's disease with delusions (7) Dementia in Alzheimer's disease with depression (8) Impulse control disorder PAOLO THOMAS MD Mar 06, 2019 22:37
--- NOTE | 2019-03-06 23:56 | PN ---
DATE: 03/05/2019 PSYCHIATRIC PROGRESS NOTE This late entry 03/05/2019, covers elements not covered in my initial note. SUBJECTIVE: I met with the patient in the evening and staffed at a lengthy treatment team meeting with the entire team during the morning and the patient's daughter attended and [id number] attended as well. We had a lengthy discussion about his improvement, appears more coherent at times. REVIEW OF SYSTEMS: Hard of hearing, impaired ambulation, in wheelchair. No CV, , pulmonary, eye system symptoms on review. MENTAL STATUS EXAM: Oriented to himself. Insight, judgment, recent and remote memory, attention, concentration, fund of knowledge poor, consistent with his diagnosis mentioned in my initial note. PLAN: No change from initial note. Transition to long-term as soon as arranged by family and social service staff. Rest unchanged. MAN Modesta THOMAS MD DR: [email or web address] JOB#: [id number] / [id number]
[2019-03-07] MEDS: LEVOTHYROXINE 75 MCG TABLET PO SCH (05:42)
[2019-03-07 06:08] VITALS: BP 135/65
[2019-03-07] MEDS: ALLOPURINOL 100 MG TABLET. PO SCH (07:34)
[2019-03-07] MEDS: LIDOCAINE (700MG/PATCH) PATCH. TD SCH ×3 (07:34→12:55)
[2019-03-07] MEDS: ASPIRIN 81 MG TAB.CHEW PO SCH (07:34)
[2019-03-07] MEDS: LANSOPRAZOLE 30 MG TAB.RAP.DR PO SCH (07:34)
[2019-03-07] MEDS: CLOPIDOGREL BISULFATE 75 MG TABLET PO SCH (07:34)
[2019-03-07] MEDS: MULTIVITAMIN I-VITE TABLET. PO SCH ×2 (07:35→19:54)
[2019-03-07] MEDS: NYSTATIN TOPICAL POWDER 15GM BOTTLE. TP SCH ×2 (07:36→19:55)
[2019-03-07] MEDS: ATENOLOL 50 MG TABLET PO SCH (07:38)
[2019-03-07] MEDS: clonazePAM 0.5 MG TABLET PO SCH ×3 (07:54→19:58)
[2019-03-07] MEDS: PILOCARPINE 1% OPHTH SOLUTION 15ML BOTTLE. OU SCH ×3 (08:53→19:54)
[2019-03-07] MEDS: DORZOLAMIDE 2% OPHTH SOLUTION 10ML BOTTLE. OU SCH ×2 (08:53→19:55)
[2019-03-07] MEDS: TIMOLOL 0.5% OPHTH SOLUTION 5ML BOTTLE. OD SCH ×2 (08:53→19:55)
[2019-03-07] MEDS: BRIMONIDINE 0.2% OPHTH SOLUTION 5ML BOTTLE. OU SCH ×2 (08:53→19:55)
--- NOTE | 2019-03-07 13:56 | NUR ---
Pt has been calm, cooperative, compliant, and very pleasant. Pt has been drowsy d/t not sleeping well last night. Pt remained withdrawn to room most of the shift. During day shift yesterday, PT said that they saw blood in the toilet when pt went to bathroom. A UA ordered was placed, however, during night stocker, a scratched was noted on pt's scrotum, which was determined to be the cause of the blood in the toilet.
[2019-03-07] MEDS: DIVALPROEX 125 MG CAP.SPRINK PO SCH ×2 (14:35→19:54)
[2019-03-07 16:54] VITALS: BP 158/76
[2019-03-07] MEDS: TAMSULOSIN 0.4 MG CAP.ER.24H. PO SCH (19:54)
[2019-03-07] MEDS: MIRTAZAPINE 15 MG TABLET PO SCH (19:54)
[2019-03-07] MEDS: PATCH REMOVAL. MC SCH (19:54)
[2019-03-07] MEDS: ATORVASTATIN CALCIUM 20 MG TABLET PO SCH (19:54)
[2019-03-07] MEDS: LATANOPROST 0.005% OPHTH SOLUTION 2.5ML BOTTLE. OU SCH (19:55)
--- NOTE | 2019-03-07 20:00 | NUR ---
Behavior Intervention Response and Plan: BIRP Note: Behavior: Assumed Care of patient, patient located in Patient Room at shift change. Patient exhibited the following behavior Calm, Interactive, Compliant. Brief assessment on rounds of vital signs, medication needs, lab studies, and pain. Treatment plan problems . Intervention: Patient assessed and the following interventions initiated safety checks 15 Minute Checks Cognitive Assessment , Head to toe Assessment , Medications. Response: After interactions and interventions patient responded in the following manner, Interactive , Calm ,Compliant. Continue to assess behaviors and condition will continue to monitor throughout the shift as needed. Patient educated on ADL's, and hand hygiene. 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 Continue to assess patient for changes in above assessment. Monitor for medication needs, pain, and safety concerns. Hourly rounding performed to ensure safe environment.
[2019-03-08 05:43] VITALS: BP 138/77
[2019-03-08] MEDS: LEVOTHYROXINE 75 MCG TABLET PO SCH (06:11)
[2019-03-08] MEDS: LANSOPRAZOLE 30 MG TAB.RAP.DR PO SCH (07:30)
[2019-03-08] MEDS: DORZOLAMIDE 2% OPHTH SOLUTION 10ML BOTTLE. OU SCH ×2 (08:46→20:03)
[2019-03-08] MEDS: MULTIVITAMIN I-VITE TABLET. PO SCH ×2 (08:46→19:59)
[2019-03-08] MEDS: PILOCARPINE 1% OPHTH SOLUTION 15ML BOTTLE. OU SCH ×3 (08:46→20:03)
[2019-03-08] MEDS: BRIMONIDINE 0.2% OPHTH SOLUTION 5ML BOTTLE. OU SCH ×2 (08:46→20:02)
[2019-03-08] MEDS: TIMOLOL 0.5% OPHTH SOLUTION 5ML BOTTLE. OD SCH ×2 (08:46→20:02)
[2019-03-08] MEDS: ASPIRIN 81 MG TAB.CHEW PO SCH (08:46)
[2019-03-08] MEDS: CLOPIDOGREL BISULFATE 75 MG TABLET PO SCH (08:47)
[2019-03-08] MEDS: ATENOLOL 50 MG TABLET PO SCH (08:48)
[2019-03-08] MEDS: LIDOCAINE (700MG/PATCH) PATCH. TD SCH (08:49)
[2019-03-08] MEDS: NYSTATIN TOPICAL POWDER 15GM BOTTLE. TP SCH ×2 (08:49→20:03)
[2019-03-08] MEDS: ALLOPURINOL 100 MG TABLET. PO SCH (08:49)
[2019-03-08] MEDS: clonazePAM 0.5 MG TABLET PO SCH ×3 (08:51→20:01)
--- NOTE | 2019-03-08 09:47 | PDOC ---
Exam Note: Scott Note: Late entry for DOS 03/07/2019. Please also refer to the separate dictated note~ for this date of service dictated separately.~Patient seen individually. Discussed the patient with Nursing staff reviewed the chart.~Reviewed interim history and current functioning. Reviewed vital signs,~Labs/ Radiology~and current medications noted below. Continue current treatment with the changes noted in the dictated addendum note Assessment: Vital Signs: VS - Last 72 Hours, by Label Date Time Temp Pulse Resp B/P (MAP) Pulse Ox O2 Delivery O2 Flow Rate FiO2 03/08/19 08:48 72 156/71 03/08/19 05:43 97.2 92 22 138/77 (97) 92 03/07/19 16:54 97.6 79 16 158/76 (103) 96 Room Air 03/07/19 07:38 53 135/65 03/07/19 06:08 97.5 53 18 135/65 (88) 96 03/06/19 16:30 97.6 78 18 194/92 (126) 97 03/06/19 08:24 63 161/85 03/06/19 05:38 97.7 63 18 161/85 (110) 96 Room Air 03/05/19 16:14 98.0 60 20 159/62 (94) 97 Room Air Vital Signs Date Time Temp Pulse Resp B/P (MAP) Pulse Ox O2 Delivery O2 Flow Rate FiO2 03/08/19 08:48 72 156/71 03/08/19 05:43 97.2 22 92 03/07/19 16:54 Room Air I&O Intake and Output 03/08/19 06:59 Intake Total 1200 ml Balance 1200 ml Intake Oral 1200 ml # Voids 1 Labs: Laboratory Tests Test 03/08/19 07:11 Glucose (Fingerstick) 92 mg/dL (70-99) Current Medications: Meds: Current Medications Sodium Chloride 1,000 ml @ 1,000 mls/hr 1X ONCE IV Last administered on at 17:31; Start 01/26/19 at 17:30; Stop 01/26/19 at 18:29; Status DC Lorazepam (Ativan) 1 mg 1X ONCE IV Last administered on 01/26/19at 21:22; Start 01/26/19 at 21:15; Stop 01/26/19 at 21:23; Status DC Lorazepam (Ativan) 1 mg 1X ONCE IV Last administered on 01/26/19 22:44; Start 01/26/19 at 22:30; Stop 01/26/19 at 22:32; Status DC Acetaminophen (Tylenol) 650 mg PRN Q6HRS PRN PO PAIN / TEMP; Start 01/27/19 at 00:00; Status Cancel Multi-Ingredient Ointment (Analgesic Speed) 1 edyta PRN QID PRN TP MUSCLE PAIN; Start 01/27/19 at 00:00 Al Hydroxide/Mg Hydroxide (Mylanta Plus Xs) 15 ml PRN AFTMEALHC PRN PO DYSPEPSIA; Start 01/27/19 at 00:00 Magnesium Hydroxide (Milk Of Magnesia) 2,400 mg PRN QHS PRN PO CONSTIPATION Last administered on 02/03/19 08:05; Start 01/27/19 at 00:00 Clonazepam (KlonoPIN) 0.125 mg TID PO Last administered on 02/19/19 08:41; Start 01/27/19 at 09:00; Stop 02/19/19 at 12:07; Status DC Paroxetine HCl (Paxil) 40 mg DAILY PO Last administered on 02/01/19 08:27; Start 01/27/19 at 09:00; Stop 02/01/19 at 18:49; Status DC Trazodone HCl (Desyrel) 12.5 mg QHS PO ; Start 01/27/19 at 21:00; Stop 01/27/19 at 21:00; Status DC Olanzapine (ZyPREXA ZYDIS) 2.5 mg PRN Q2HR PRN PO PSYCHOSIS Last administered on 01/31/19 08:47; Start 01/27/19 at 01:00; Stop 01/31/19 at 20:14; Status DC Acetaminophen (Tylenol) 650 mg PRN QID PRN PO PAIN Last administered on at 20:59; Start 01/27/19 at 01:00 Albuterol Sulfate (Ventolin) 1 mg PRN Q6HRS PRN INH SHORTNESS OF BREATH; Start 01/27/19 at 01:00 Aspirin (Hira Aspirin) 325 mg DAILYWBKFT PO Last administered on 02/01/19 08: 27; Start 01/27/19 at 08:00; Stop 02/01/19 at 13:38; Status DC Clonidine HCl (Catapres) 0.1 mg PRN DAILY PRN PO HYPERTENSION, SEE COMMENTS Last administered on 02/26/19at 04:18; Start 01/27/19 at 01:00 Clopidogrel Bisulfate (Plavix) 75 mg DAILY PO Last administered on 03/08/19 08: 47; Start 01/27/19 at 09:00 Gabapentin (Neurontin) 100 mg BID94 PO Last administered on 02/05/19 08:34; Start 01/27/19 at 09:00; Stop 02/05/19 at 16:10; Status DC Gabapentin (Neurontin) 100 mg QHS PO Last administered on 02/04/19 20:17; Start 01/27/19 at 21:00; Stop 02/05/19 at 16:10; Status DC Levothyroxine Sodium (Synthroid) 75 mcg DAILY06 PO Last administered on 06:11; Start 01/27/19 at 06:00 Losartan Potassium (Cozaar) 50 mg DAILY PO Last administered on 01/27/19 13:26 ; Start 01/27/19 at 09:00; Stop 01/27/19 at 14:32; Status DC Tamsulosin HCl (Flomax) 0.4 mg DAILY PO Last administered on 02/05/19 08:34; Start 01/27/19 at 09:00; Stop 02/05/19 at 16:10; Status DC Multivitamins/ Minerals (I-Alis) 1 tab BID PO Last administered on 03/08/19at 08: 46; Start 01/27/19 at 09:00 Allopurinol (Zyloprim) 150 mg DAILY PO Last administered on 03/08/19 08:49; Start 01/27/19 at 09:00 Non-Formulary Medication (Aloe Vera/ Collagen (Sensi-Care Perineal Cleanser)) 1 edyta BID TP ; Start 01/27/19 at 09:00; Stop 01/27/19 at 09:00; Status DC Atenolol (Tenormin) 100 mg DAILY PO Last administered on 03/08/19at 08:48; Start 01/27/19 at 09:00 Atorvastatin Calcium (Lipitor) 40 mg HS PO Last administered on 03/07/19 19:54 ; Start 01/27/19 at 21:00 Brimonidine Tartrate (Alphagan) 1 drop BID OD ; Start 01/27/19 at 09:00; Stop at 12:36; Status DC Dorzolamide HCl (Trusopt) 1 drop BID OD ; Start 01/27/19 at 09:00; Stop at 12:39; Status DC Finasteride (Proscar) 5 mg DAILY PO Last administered on 02/05/19 08:34; Start 01/27/19 at 09:00; Stop 02/05/19 at 16:10; Status DC Folic Acid (Folic Acid) 1 mg DAILY PO Last administered on 02/01/19 08:26; Start 01/27/19 at 09:00; Stop 02/01/19 at 13:38; Status DC Hydrochlorothiazide (Microzide) 12.5 mg DAILY PO Last administered on 13:27; Start 01/27/19 at 09:00; Stop 01/27/19 at 14:32; Status DC Lactobacillus Rhamnosus (Culturelle) 1 cap DAILY PO Last administered on 08:34; Start 01/27/19 at 09:00; Stop 02/05/19 at 16:10; Status DC Latanoprost (Xalatan) 1 drop QHS OU Last administered on 03/06/19 20:00; Start 01/27/19 at 21:00; Stop 03/07/19 at 16:13; Status DC Multivitamins/ Calcium (Thera-M Plus) 1 tab DAILY PO Last administered on 08:26; Start 01/27/19 at 09:00; Stop 02/01/19 at 13:38; Status DC Pantoprazole Sodium (Protonix) 40 mg DAILYAC PO Last administered on 01/28/19at 10:03; Start 01/27/19 at 07:30; Stop 01/29/19 at 11:24; Status DC Pilocarpine HCl (Pilocar) 1 drop TID OD ; Start 01/27/19 at 09:00; Stop at 12:38; Status DC Timolol Maleate (Timoptic 0.5% Ophth) 1 drop BID OD Last administered on 08:53; Start 01/27/19 at 07:15; Stop 03/07/19 at 16:14; Status DC Brimonidine Tartrate (Alphagan) 1 drop BID OU Last administered on 03/07/19 08: 53; Start 01/27/19 at 12:36; Stop 03/07/19 at 16:13; Status DC Pilocarpine HCl (Pilocar) 1 drop TID OU Last administered on 03/07/19 14:28; Start 01/27/19 at 12:38; Stop 03/07/19 at 16:14; Status DC Dorzolamide HCl (Trusopt) 1 drop TID OU Last administered on 02/05/19 14:00; Start 01/27/19 at 14:00; Stop 02/05/19 at 16:11; Status DC Olanzapine (ZyPREXA ZYDIS) 2.5 mg PRN Q2HR PRN PO PSYCHOSIS; Start 01/27/19 at 17:30; Stop 01/29/19 at 17:13; Status DC Trazodone HCl (Desyrel) 50 mg PRN QHS PRN PO INSOMNIA, MAY REPEAT X1 Last administered on 03/03/19 21:36; Start 01/27/19 at 17:30 Mirtazapine (Remeron) 7.5 mg QHS PO Last administered on 01/31/19 19:55; Start 01/28/19 at 21:00; Stop 02/01/19 at 18:50; Status DC Lansoprazole (Prevacid) 30 mg DAILYAC PO Last administered on 03/08/19 07:30; Start 01/30/19 at 07:30 Tuberculin PPD (Tubersol) 0.1 ml 1X ONCE ID Last administered on 01/30/19 15: 14; Start 01/30/19 at 14:45; Stop 01/30/19 at 14:52; Status DC Lidocaine (Lidoderm) 1 patch DAILY TD Last administered on 03/08/19 08:49; Start 01/31/19 at 18:00 Miscellaneous (Lidoderm Patch Removal) 1 ea QHS MC Last administered on 19:58; Start 02/01/19 at 03:00 Olanzapine (ZyPREXA ZYDIS) 5 mg PRN Q2HR PRN PO PSYCHOSIS Last administered on 03/06/19 16:45; Start 01/31/19 at 20:15 Aspirin (Children'S Aspirin) 81 mg DAILYWBKFT PO Last administered on 03/08/19at 08:46; Start 02/02/19 at 08:00 Paroxetine HCl (Paxil) 30 mg DAILY PO Last administered on 02/04/19 11:29; Start 02/02/19 at 09:00; Stop 02/04/19 at 12:49; Status DC Mirtazapine (Remeron) 15 mg QHS PO Last administered on 03/07/19 19:54; Start 02/01/19 at 21:00 Clonazepam (KlonoPIN) 0.25 mg 1X ONCE PO Last administered on 02/01/19 23:48; Start 02/02/19 at 00:00; Stop 02/02/19 at 00:01; Status DC Clonazepam (KlonoPIN) 0.25 mg 1X ONCE PO Last administered on 02/02/19at 01:47; Start 02/02/19 at 02:00; Stop 02/02/19 at 02:01; Status DC Olanzapine (ZyPREXA IM) 5 mg DAILY IM ; Start 02/04/19 at 09:00; Stop 02/04/19 at 09:00; Status DC Lorazepam (Ativan) 0.5 mg DAILY IM ; Start 02/04/19 at 09:00; Stop 02/04/19 at 09: 00; Status DC Lorazepam (Ativan) 0.5 mg DAILY IM Last administered on 02/25/19at 08:13; Start 02/03/19 at 11:45; Stop 02/26/19 at 11:11; Status DC Olanzapine (ZyPREXA IM) 5 mg DAILY IM Last administered on 02/03/19 11:44; Start 02/03/19 at 11:45; Stop 02/05/19 at 18:32; Status DC Paroxetine HCl (Paxil) 20 mg DAILY PO Last administered on 02/08/19at 07:36; Start 02/05/19 at 09:00; Stop 02/08/19 at 08:59; Status DC Paroxetine HCl (Paxil) 10 mg DAILY PO Last administered on 02/10/19 12:23; Start 02/08/19 at 09:00; Stop 02/11/19 at 08:59; Status DC Paroxetine HCl (Paxil) 5 mg DAILY PO Last administered on 02/13/19 09:10; Start 02/11/19 at 09:00; Stop 02/14/19 at 08:59; Status DC Tamsulosin HCl (Flomax) 0.4 mg QHS PO Last administered on 03/07/19 19:54; Start 02/05/19 at 21:00 Dorzolamide HCl (Trusopt) 1 drop BID OU Last administered on 03/08/19 08:46; Start 02/05/19 at 21:00 Nystatin (Nystop) 15 edyta STK-MED ONCE TP Last administered on 02/05/19 21:04; Start 02/05/19 at 21:04; Stop 02/05/19 at 21:05; Status DC Nystatin (Nystop) 1 edyta BID TP Last administered on 03/08/19 08:49; Start at 21:30 Divalproex Sodium (Depakote Sprinkles) 125 mg 1500 PO Last administered on 02/25 14:53; Start 02/17/19 at 15:00; Stop 02/26/19 at 11:19; Status DC Clonazepam (KlonoPIN) 0.25 mg TID PO Last administered on 03/08/19 08:51; Start 02/19/19 at 14:00 Loperamide HCl (Imodium) 2 mg PRN Q15MIN PRN PO DIARRHEA; Start 02/21/19 at 22: 15 Divalproex Sodium (Depakote Sprinkles) 125 mg 1500,2100 PO Last administered on 03/07/19 19:54; Start 02/26/19 at 15:00 Brimonidine Tartrate (Alphagan) 1 drop BID OU Last administered on 03/08/19 08: 46; Start 03/07/19 at 16:13 Latanoprost (Xalatan) 1 drop QHS OU Last administered on 03/07/19 19:55; Start 03/07/19 at 16:13 Pilocarpine HCl (Pilocar) 1 drop TID OU Last administered on 03/08/19 08:46; Start 03/07/19 at 16:14 Timolol Maleate (Timoptic 0.5% Ophth) 1 drop BID OD Last administered on at 08:46; Start 03/07/19 at 16:14 Active Scripts Active Reported Sensi-Care Perineal Cleanser (Aloe Vera/Collagen) 118 Ml Solution 1 Edyta TP BID Paroxetine Hcl 40 Mg Tablet 40 Mg PO DAILY Trazodone Hcl 50 Mg Tablet 12.5 Mg PO QHS Dorzolamide Hcl 10 Ml Drops 1 Drp OD BID Timoptic (Timolol Maleate) 10 Ml Drops 1 Drp OD BID Pilocarpine Hcl 5 Mg Tablet 1 Drop OD TID Latanoprost 2.5 Ml Drops 1 Drop OU QHS Alphagan P (Brimonidine Tartrate) 5 Ml Drops 1 Drop OD BID Pantoprazole Sodium 40 Mg Tablet.dr 40 Mg PO DAILY Cozaar (Losartan Potassium) 50 Mg Tablet 50 Mg PO DAILY Levothyroxine Sodium 75 Mcg Tablet 75 Mcg PO DAILYAC Culturelle (Lactobacillus Rhamnosus Gg) 1 Each Capsule 1 Each PO DAILY Gabapentin (Gabapentin) 100 Mg Capsule 100 Mg PO QHS Gabapentin (Gabapentin) 100 Mg Capsule 100 Mg PO BID Finasteride 5 Mg Tablet 5 Mg PO DAILY Clonidine Hcl 0.1 Mg Tablet 0.1 Mg PO PRN DAILY PRN Lipitor (Atorvastatin Calcium) 40 Mg Tablet 40 Mg PO DAILY Atenolol 100 Mg Tablet 100 Mg PO DAILY Allopurinol 300 Mg Tablet 150 Mg PO DAILY Proair Hfa Inhaler (Albuterol Sulfate) 8.5 Gm Hfa.aer.ad 1 Puff INH PRN Q6HRS PRN Multivitamins (Multivitamin) 1 Each Tablet 1 Each PO DAILY Aspirin 325 Mg Tablet 325 Mg PO DAILY Folic Acid 1 Mg Tablet 1 Mg PO DAILY Clopidogrel (Clopidogrel Bisulfate) 75 Mg Tablet 75 Mg PO DAILY Macuvite [employer] Tablet (A/C/E/Zinc Ox/Cupric Ox/Lutein) 1 Each Tablet 1 Each PO BID Tylenol (Acetaminophen) 325 Mg Tablet 650 Mg PO PRN QID PRN Clonazepam 0.125 Mg Tab.rapdis 0.125 Mg PO TID Tamsulosin Hcl 0.4 Mg Cap.er.24h 0.4 Mg PO DAILY Hydrochlorothiazide Tablet (Hydrochlorothiazide) 12.5 Mg Tablet 12.5 Mg PO DAILY I have reviewed the current psychotropics carefully including drug interactions. Risk benefit ratio favors no change other than as noted in my dictated progress note. Diagnosis: Problems: (1) Medical clearance for psychiatric admission (2) Anxiety disorder (3) Dementia with behavioral disturbance (4) Dementia, vascular, with delusions (5) Dementia, vascular, with depression (6) Dementia in Alzheimer's disease with delusions (7) Dementia in Alzheimer's disease with depression (8) Impulse control disorder PAOLO THOMAS MD Mar 08, 2019 09:47
--- NOTE | 2019-03-08 10:04 | PN ---
DATE: 03/06/2019 PSYCHIATRIC PROGRESS NOTE This late entry 03/06/2019 covers elements not covered in my initial note. SUBJECTIVE: I met with the patient in the evening. The patient slept 7-1/4 hours previous night. He remains confused, hard of hearing, impaired ambulation, in wheelchair. Placement staff member came to visit him and he was little agitated after the visit, but overall doing better. Received Zyprexa p.r.n. at 11:00 a.m. REVIEW OF SYSTEMS: No CV, , GI, eye system symptoms on review. Hard of hearing. MENTAL STATUS EXAM: Oriented to himself. Insight, judgment, recent and remote memory, attention, concentration, fund of knowledge poor, consistent with his diagnosis mentioned in my initial note. PLAN: No change from initial note. MAN Modesta THOMAS MD DR: [email or web address] JOB#: [id number] / [id number]
--- NOTE | 2019-03-08 11:46 | NUR ---
Assumed care of pt @ approx 0700. Pt pleasant and cooperative, although somewhat withdrawn. Compliant w/meds and assessment. No s/s of hallucinations, delusions, or paranoia noted so far. No inappropriate behaviors noted. Denies pain. Denies SI/HI. Pt currently sitting up in the Day Room with her peers, listening to music. No needs voiced @ this time. Will continue to monitor and assist pt in working towards her treatment and D/C goals.
[2019-03-08] MEDS: DIVALPROEX 125 MG CAP.SPRINK PO SCH ×2 (15:00→19:59)
[2019-03-08 16:42] VITALS: BP 188/68
[2019-03-08] MEDS: MIRTAZAPINE 15 MG TABLET PO SCH (19:59)
[2019-03-08] MEDS: ATORVASTATIN CALCIUM 20 MG TABLET PO SCH (19:59)
[2019-03-08] MEDS: TAMSULOSIN 0.4 MG CAP.ER.24H. PO SCH (19:59)
[2019-03-08] MEDS: LATANOPROST 0.005% OPHTH SOLUTION 2.5ML BOTTLE. OU SCH (20:03)
[2019-03-08] MEDS: PATCH REMOVAL. MC SCH (21:00)
--- NOTE | 2019-03-08 22:54 | PDOC ---
Exam Note: Scott Note: Please also refer to the separate dictated note~for this date of service dictated separately.~Patient seen individually. Discussed the patient with Nursing staff reviewed the chart.~Reviewed interim history and current functioning. Reviewed vital signs,~Labs/ Radiology~and current medications noted below. Continue current treatment with the changes noted in the dictated addendum note Assessment: Vital Signs: Vital Signs Date Time Temp Pulse Resp B/P (MAP) Pulse Ox O2 Delivery O2 Flow Rate FiO2 03/08/19 16:42 97.2 63 20 188/68 (108) 97 03/07/19 16:54 Room Air I&O Intake and Output 03/08/19 07:00 Intake Total 1200 ml Balance 1200 ml Intake Oral 1200 ml # Voids 1 Labs: Laboratory Tests Test 03/08/19 07:11 Glucose (Fingerstick) 92 mg/dL (70-99) Current Medications: Meds: Current Medications Sodium Chloride 1,000 ml @ 1,000 mls/hr 1X ONCE IV Last administered on at 17:31; Start 01/26/19 at 17:30; Stop 01/26/19 at 18:29; Status DC Lorazepam (Ativan) 1 mg 1X ONCE IV Last administered on 01/26/19at 21:22; Start 01/26/19 at 21:15; Stop 01/26/19 at 21:23; Status DC Lorazepam (Ativan) 1 mg 1X ONCE IV Last administered on 01/26/19at 22:44; Start 01/26/19 at 22:30; Stop 01/26/19 at 22:32; Status DC Acetaminophen (Tylenol) 650 mg PRN Q6HRS PRN PO PAIN / TEMP; Start 01/27/19 at 00:00; Status Cancel Multi-Ingredient Ointment (Analgesic [place]) 1 edyta PRN QID PRN TP MUSCLE PAIN; Start 01/27/19 at 00:00 Al Hydroxide/Mg Hydroxide (Mylanta Plus Xs) 15 ml PRN AFTMEALHC PRN PO DYSPEPSIA; Start 01/27/19 at 00:00 Magnesium Hydroxide (Milk Of Magnesia) 2,400 mg PRN QHS PRN PO CONSTIPATION Last administered on 02/03/19at 08:05; Start 01/27/19 at 00:00 Clonazepam (KlonoPIN) 0.125 mg TID PO Last administered on 02/19/19 08:41; Start 01/27/19 at 09:00; Stop 02/19/19 at 12:07; Status DC Paroxetine HCl (Paxil) 40 mg DAILY PO Last administered on 02/01/19 08:27; Start 01/27/19 at 09:00; Stop 02/01/19 at 18:49; Status DC Trazodone HCl (Desyrel) 12.5 mg QHS PO ; Start 01/27/19 at 21:00; Stop 01/27/19 at 21:00; Status DC Olanzapine (ZyPREXA ZYDIS) 2.5 mg PRN Q2HR PRN PO PSYCHOSIS Last administered on 01/31/19 08:47; Start 01/27/19 at 01:00; Stop 01/31/19 at 20:14; Status DC Acetaminophen (Tylenol) 650 mg PRN QID PRN PO PAIN Last administered on 20:59; Start 01/27/19 at 01:00 Albuterol Sulfate (Ventolin) 1 mg PRN Q6HRS PRN INH SHORTNESS OF BREATH; Start 01/27/19 at 01:00 Aspirin (Hira Aspirin) 325 mg DAILYWBKFT PO Last administered on 02/01/19 08: 27; Start 01/27/19 at 08:00; Stop 02/01/19 at 13:38; Status DC Clonidine HCl (Catapres) 0.1 mg PRN DAILY PRN PO HYPERTENSION, SEE COMMENTS Last administered on 02/26/19 04:18; Start 01/27/19 at 01:00 Clopidogrel Bisulfate (Plavix) 75 mg DAILY PO Last administered on 03/08/19 08: 47; Start 01/27/19 at 09:00 Gabapentin (Neurontin) 100 mg BID94 PO Last administered on 02/05/19 08:34; Start 01/27/19 at 09:00; Stop 02/05/19 at 16:10; Status DC Gabapentin (Neurontin) 100 mg QHS PO Last administered on 02/04/19 20:17; Start 01/27/19 at 21:00; Stop 02/05/19 at 16:10; Status DC Levothyroxine Sodium (Synthroid) 75 mcg DAILY06 PO Last administered on 06:11; Start 01/27/19 at 06:00 Losartan Potassium (Cozaar) 50 mg DAILY PO Last administered on 01/27/19 13:26 ; Start 01/27/19 at 09:00; Stop 01/27/19 at 14:32; Status DC Tamsulosin HCl (Flomax) 0.4 mg DAILY PO Last administered on 02/05/19 08:34; Start 01/27/19 at 09:00; Stop 02/05/19 at 16:10; Status DC Multivitamins/ Minerals (I-Alis) 1 tab BID PO Last administered on 03/08/19 19: 59; Start 01/27/19 at 09:00 Allopurinol (Zyloprim) 150 mg DAILY PO Last administered on 03/08/19 08:49; Start 01/27/19 at 09:00 Non-Formulary Medication (Aloe Vera/ Collagen (Sensi-Care Perineal Cleanser)) 1 edyta BID TP ; Start 01/27/19 at 09:00; Stop 01/27/19 at 09:00; Status DC Atenolol (Tenormin) 100 mg DAILY PO Last administered on 03/08/19at 08:48; Start 01/27/19 at 09:00 Atorvastatin Calcium (Lipitor) 40 mg HS PO Last administered on 03/08/19 19:59 ; Start 01/27/19 at 21:00 Brimonidine Tartrate (Alphagan) 1 drop BID OD ; Start 01/27/19 at 09:00; Stop at 12:36; Status DC Dorzolamide HCl (Trusopt) 1 drop BID OD ; Start 01/27/19 at 09:00; Stop at 12:39; Status DC Finasteride (Proscar) 5 mg DAILY PO Last administered on 02/05/19 08:34; Start 01/27/19 at 09:00; Stop 02/05/19 at 16:10; Status DC Folic Acid (Folic Acid) 1 mg DAILY PO Last administered on 02/01/19 08:26; Start 01/27/19 at 09:00; Stop 02/01/19 at 13:38; Status DC Hydrochlorothiazide (Microzide) 12.5 mg DAILY PO Last administered on 13:27; Start 01/27/19 at 09:00; Stop 01/27/19 at 14:32; Status DC Lactobacillus Rhamnosus (Culturelle) 1 cap DAILY PO Last administered on 08:34; Start 01/27/19 at 09:00; Stop 02/05/19 at 16:10; Status DC Latanoprost (Xalatan) 1 drop QHS OU Last administered on 03/06/19at 20:00; Start 01/27/19 at 21:00; Stop 03/07/19 at 16:13; Status DC Multivitamins/ Calcium (Thera-M Plus) 1 tab DAILY PO Last administered on 08:26; Start 01/27/19 at 09:00; Stop 02/01/19 at 13:38; Status DC Pantoprazole Sodium (Protonix) 40 mg DAILYAC PO Last administered on 01/28/19 10:03; Start 01/27/19 at 07:30; Stop 01/29/19 at 11:24; Status DC Pilocarpine HCl (Pilocar) 1 drop TID OD ; Start 01/27/19 at 09:00; Stop at 12:38; Status DC Timolol Maleate (Timoptic 0.5% Ophth) 1 drop BID OD Last administered on 08:53; Start 01/27/19 at 07:15; Stop 03/07/19 at 16:14; Status DC Brimonidine Tartrate (Alphagan) 1 drop BID OU Last administered on 03/07/19 08: 53; Start 01/27/19 at 12:36; Stop 03/07/19 at 16:13; Status DC Pilocarpine HCl (Pilocar) 1 drop TID OU Last administered on 03/07/19 14:28; Start 01/27/19 at 12:38; Stop 03/07/19 at 16:14; Status DC Dorzolamide HCl (Trusopt) 1 drop TID OU Last administered on 02/05/19 14:00; Start 01/27/19 at 14:00; Stop 02/05/19 at 16:11; Status DC Olanzapine (ZyPREXA ZYDIS) 2.5 mg PRN Q2HR PRN PO PSYCHOSIS; Start 01/27/19 at 17:30; Stop 01/29/19 at 17:13; Status DC Trazodone HCl (Desyrel) 50 mg PRN QHS PRN PO INSOMNIA, MAY REPEAT X1 Last administered on 03/03/19 21:36; Start 01/27/19 at 17:30 Mirtazapine (Remeron) 7.5 mg QHS PO Last administered on 01/31/19 19:55; Start 01/28/19 at 21:00; Stop 02/01/19 at 18:50; Status DC Lansoprazole (Prevacid) 30 mg DAILYAC PO Last administered on 03/08/19 07:30; Start 01/30/19 at 07:30 Tuberculin PPD (Tubersol) 0.1 ml 1X ONCE ID Last administered on 01/30/19 15: 14; Start 01/30/19 at 14:45; Stop 01/30/19 at 14:52; Status DC Lidocaine (Lidoderm) 1 patch DAILY TD Last administered on 03/08/19 08:49; Start 01/31/19 at 18:00 Miscellaneous (Lidoderm Patch Removal) 1 ea QHS MC Last administered on 19:58; Start 02/01/19 at 03:00 Olanzapine (ZyPREXA ZYDIS) 5 mg PRN Q2HR PRN PO PSYCHOSIS Last administered on 03/06/19 16:45; Start 01/31/19 at 20:15 Aspirin (Children'S Aspirin) 81 mg DAILYWBKFT PO Last administered on 03/08/19 08:46; Start 02/02/19 at 08:00 Paroxetine HCl (Paxil) 30 mg DAILY PO Last administered on 02/04/19 11:29; Start 02/02/19 at 09:00; Stop 02/04/19 at 12:49; Status DC Mirtazapine (Remeron) 15 mg QHS PO Last administered on 03/08/19 19:59; Start 02/01/19 at 21:00 Clonazepam (KlonoPIN) 0.25 mg 1X ONCE PO Last administered on 02/01/19 23:48; Start 02/02/19 at 00:00; Stop 02/02/19 at 00:01; Status DC Clonazepam (KlonoPIN) 0.25 mg 1X ONCE PO Last administered on 02/02/19at 01:47; Start 02/02/19 at 02:00; Stop 02/02/19 at 02:01; Status DC Olanzapine (ZyPREXA IM) 5 mg DAILY IM ; Start 02/04/19 at 09:00; Stop 02/04/19 at 09:00; Status DC Lorazepam (Ativan) 0.5 mg DAILY IM ; Start 02/04/19 at 09:00; Stop 02/04/19 at 09: 00; Status DC Lorazepam (Ativan) 0.5 mg DAILY IM Last administered on 02/25/19at 08:13; Start 02/03/19 at 11:45; Stop 02/26/19 at 11:11; Status DC Olanzapine (ZyPREXA IM) 5 mg DAILY IM Last administered on 02/03/19at 11:44; Start 02/03/19 at 11:45; Stop 02/05/19 at 18:32; Status DC Paroxetine HCl (Paxil) 20 mg DAILY PO Last administered on 02/08/19at 07:36; Start 02/05/19 at 09:00; Stop 02/08/19 at 08:59; Status DC Paroxetine HCl (Paxil) 10 mg DAILY PO Last administered on 02/10/19at 12:23; Start 02/08/19 at 09:00; Stop 02/11/19 at 08:59; Status DC Paroxetine HCl (Paxil) 5 mg DAILY PO Last administered on 02/13/19at 09:10; Start 02/11/19 at 09:00; Stop 02/14/19 at 08:59; Status DC Tamsulosin HCl (Flomax) 0.4 mg QHS PO Last administered on 03/08/19at 19:59; Start 02/05/19 at 21:00 Dorzolamide HCl (Trusopt) 1 drop BID OU Last administered on 03/08/19at 20:03; Start 02/05/19 at 21:00 Nystatin (Nystop) 15 edyta STK-MED ONCE TP Last administered on 02/05/19at 21:04; Start 02/05/19 at 21:04; Stop 02/05/19 at 21:05; Status DC Nystatin (Nystop) 1 edyta BID TP Last administered on 03/08/19 20:03; Start at 21:30 Divalproex Sodium (Depakote Sprinkles) 125 mg 1500 PO Last administered on 02/25 14:53; Start 02/17/19 at 15:00; Stop 02/26/19 at 11:19; Status DC Clonazepam (KlonoPIN) 0.25 mg TID PO Last administered on 03/08/19 20:01; Start 02/19/19 at 14:00 Loperamide HCl (Imodium) 2 mg PRN Q15MIN PRN PO DIARRHEA; Start 02/21/19 at 22: 15 Divalproex Sodium (Depakote Sprinkles) 125 mg 1500,2100 PO Last administered on 03/08/19 19:59; Start 02/26/19 at 15:00 Brimonidine Tartrate (Alphagan) 1 drop BID OU Last administered on 03/08/19 20: 02; Start 03/07/19 at 16:13 Latanoprost (Xalatan) 1 drop QHS OU Last administered on 03/08/19 20:03; Start 03/07/19 at 16:13 Pilocarpine HCl (Pilocar) 1 drop TID OU Last administered on 03/08/19 20:03; Start 03/07/19 at 16:14 Timolol Maleate (Timoptic 0.5% Ophth) 1 drop BID OD Last administered on 20:02; Start 03/07/19 at 16:14 Active Scripts Active Reported Sensi-Care Perineal Cleanser (Aloe Vera/Collagen) 118 Ml Solution 1 Edyta TP BID Paroxetine Hcl 40 Mg Tablet 40 Mg PO DAILY Trazodone Hcl 50 Mg Tablet 12.5 Mg PO QHS Dorzolamide Hcl 10 Ml Drops 1 Drp OD BID Timoptic (Timolol Maleate) 10 Ml Drops 1 Drp OD BID Pilocarpine Hcl 5 Mg Tablet 1 Drop OD TID Latanoprost 2.5 Ml Drops 1 Drop OU QHS Alphagan P (Brimonidine Tartrate) 5 Ml Drops 1 Drop OD BID Pantoprazole Sodium 40 Mg Tablet.dr 40 Mg PO DAILY [place] (Losartan Potassium) 50 Mg Tablet 50 Mg PO DAILY Levothyroxine Sodium 75 Mcg Tablet 75 Mcg PO DAILYAC Culturelle (Lactobacillus Rhamnosus Gg) 1 Each Capsule 1 Each PO DAILY Gabapentin (Gabapentin) 100 Mg Capsule 100 Mg PO QHS Gabapentin (Gabapentin) 100 Mg Capsule 100 Mg PO BID Finasteride 5 Mg Tablet 5 Mg PO DAILY Clonidine Hcl 0.1 Mg Tablet 0.1 Mg PO PRN DAILY PRN Lipitor (Atorvastatin Calcium) 40 Mg Tablet 40 Mg PO DAILY Atenolol 100 Mg Tablet 100 Mg PO DAILY Allopurinol 300 Mg Tablet 150 Mg PO DAILY Proair Hfa Inhaler (Albuterol Sulfate) 8.5 Gm Hfa.aer.ad 1 Puff INH PRN Q6HRS PRN Multivitamins (Multivitamin) 1 Each Tablet 1 Each PO DAILY Aspirin 325 Mg Tablet 325 Mg PO DAILY Folic Acid 1 Mg Tablet 1 Mg PO DAILY Clopidogrel (Clopidogrel Bisulfate) 75 Mg Tablet 75 Mg PO DAILY Macuvite [facility] [employer] Tablet (A/C/E/Zinc Ox/Cupric Ox/Lutein) 1 Each Tablet 1 Each PO BID Tylenol (Acetaminophen) 325 Mg Tablet 650 Mg PO PRN QID PRN Clonazepam 0.125 Mg Tab.rapdis 0.125 Mg PO TID Tamsulosin Hcl 0.4 Mg Cap.er.24h 0.4 Mg PO DAILY Hydrochlorothiazide Tablet (Hydrochlorothiazide) 12.5 Mg Tablet 12.5 Mg PO DAILY I have reviewed the current psychotropics carefully including drug interactions. Risk benefit ratio favors no change other than as noted in my dictated progress note. Diagnosis: Problems: (1) Medical clearance for psychiatric admission (2) Anxiety disorder (3) Dementia with behavioral disturbance (4) Dementia, vascular, with delusions (5) Dementia, vascular, with depression (6) Dementia in Alzheimer's disease with delusions (7) Dementia in Alzheimer's disease with depression (8) Impulse control disorder PAOLO THOMAS MD Mar 08, 2019 22:54
--- NOTE | 2019-03-09 01:12 | NUR ---
Nursing Note Pt pleasant calm and cooperative this pm. No behaviors.
[2019-03-09] MEDS: traZODone 50 MG TABLET. PO PRN (01:39)
[2019-03-09] MEDS: LEVOTHYROXINE 75 MCG TABLET PO SCH (05:28)
[2019-03-09 05:35] VITALS: BP 159/72
[2019-03-09] MEDS: ACETAMINOPHEN 325 MG TABLET PO PRN (07:29)
[2019-03-09] MEDS: ASPIRIN 81 MG TAB.CHEW PO SCH (08:57)
[2019-03-09] MEDS: ALLOPURINOL 100 MG TABLET. PO SCH (08:57)
[2019-03-09] MEDS: MULTIVITAMIN I-VITE TABLET. PO SCH ×2 (08:58→20:15)
[2019-03-09] MEDS: CLOPIDOGREL BISULFATE 75 MG TABLET PO SCH (08:58)
[2019-03-09] MEDS: ATENOLOL 50 MG TABLET PO SCH (08:58)
[2019-03-09] MEDS: LIDOCAINE (700MG/PATCH) PATCH. TD SCH (08:59)
[2019-03-09] MEDS: NYSTATIN TOPICAL POWDER 15GM BOTTLE. TP SCH ×2 (09:00→20:16)
[2019-03-09] MEDS: LANSOPRAZOLE 30 MG TAB.RAP.DR PO SCH (09:00)
[2019-03-09] MEDS: clonazePAM 0.5 MG TABLET PO SCH ×3 (09:00→20:18)
[2019-03-09] MEDS: DORZOLAMIDE 2% OPHTH SOLUTION 10ML BOTTLE. OU SCH ×2 (09:01→20:19)
[2019-03-09] MEDS: PILOCARPINE 1% OPHTH SOLUTION 15ML BOTTLE. OU SCH ×3 (09:02→20:19)
[2019-03-09] MEDS: TIMOLOL 0.5% OPHTH SOLUTION 5ML BOTTLE. OD SCH ×2 (09:02→20:19)
[2019-03-09] MEDS: BRIMONIDINE 0.2% OPHTH SOLUTION 5ML BOTTLE. OU SCH ×2 (09:02→20:19)
--- NOTE | 2019-03-09 09:07 | NUR ---
Chino, son/POA, phoned this morning and shared that [facility] will not be out to evaluate Kevan as planned as they are not able to meet Kevan's wound care needs. Awaiting admit decision from [facility], admit decision to be made this date. Will continue to move forward with d/c planning once admit decision is made.
--- NOTE | 2019-03-09 09:18 | NUR ---
Per Chino's request, call placed to [facility] to inquire if they have had any fci male beds become available, left message for Sherry in admissions, awaiting return phone call.
[2019-03-09 09:48] LABS: BASO % 1 % (0-3); EOS # 0.5 x10^3/uL (0.0-0.7); EOS % 6 % (0-3); HEMATOCRIT 30.2 % (39.0-53.0); LYMPH # 2.1 x10^3/uL (1.0-4.8); LYMPH % 25 % (24-48); MEAN CORPUSCULAR HEMOGLOBIN 33 pg (25-35); MEAN CORPUSCULAR HGB CONC 33 g/dL (31-37); MEAN CORPUSCULAR VOLUME 100 fL (79-100); MONO % 11 % (0-9); NEUT # 4.9 x10^3uL (1.8-7.7); NEUT % 58 % (31-73); PLATELET COUNT 195 x10^3/uL (140-400); RED BLOOD COUNT 3.03 x10^6/uL (4.30-5.70); RED CELL DISTRIBUTION WIDTH 16.4 % (11.5-14.5); WHITE BLOOD COUNT 8.5 x10^3/uL (4.0-11.0)
[2019-03-09 10:07] LABS: ALBUMIN 2.1 g/dL (3.4-5.0); ALBUMIN/GLOBULIN RATIO 0.6 (1.0-1.7); CALCIUM 7.9 mg/dL (8.5-10.1); CREATININE 1.3 mg/dL (0.7-1.3); POTASSIUM 3.9 mmol/L (3.5-5.1); TOTAL BILIRUBIN 0.2 mg/dL (0.2-1.0); TOTAL PROTEIN 5.4 g/dL (6.4-8.2)
--- NOTE | 2019-03-09 10:54 | NUR ---
Received return phone call from Sherry, zeke at [facility], who reported they have no male skilled beds available.
--- NOTE | 2019-03-09 11:24 | NUR ---
Received phone call from Gen at [facility] indicating that they can accept Kevan on 03/11/19 to the [facility] location at [address] [place] [id number]. Letty Aly is the nurse there and can be reached at [phone]. Gen requested that home health referral be completed so wound care needs can be met. Will proceed with discharge planning.
--- NOTE | 2019-03-09 12:58 | NUR ---
Behavior Intervention Response and Plan: BIRP Note: Behavior: Assumed Care of patient, patient located in Hallway at shift change. Patient exhibited the following behavior Wandering, Restless, Compliant. Brief assessment on rounds of vital signs, medication needs, lab studies, and pain. Intervention: Patient assessed and the following interventions initiated safety checks 15 Minute Checks Cognitive Assessment , Head to toe Assessment , Medications. Response: After interactions and interventions patient responded in the following manner, Interactive , Calm ,Compliant. Continue to assess behaviors and condition will continue to monitor throughout the shift as needed. Patient educated on ADL's, and hand hygiene. Plan: Continue to monitor Master Treatment Plan for patient's progress toward short term goals of Decreased Agitation, Decreased Anxiety, intermediate goals to return to previous living setting vs placement. Continue to assess patient for changes in above assessment. Monitor for medication needs, pain, and safety concerns. Hourly rounding performed to ensure safe environment.
[2019-03-09] MEDS: DIVALPROEX 125 MG CAP.SPRINK PO SCH ×2 (14:23→20:15)
[2019-03-09 16:28] VITALS: BP 157/68
[2019-03-09] MEDS: MIRTAZAPINE 15 MG TABLET PO SCH (20:15)
[2019-03-09] MEDS: ATORVASTATIN CALCIUM 20 MG TABLET PO SCH (20:15)
[2019-03-09] MEDS: TAMSULOSIN 0.4 MG CAP.ER.24H. PO SCH (20:15)
[2019-03-09] MEDS: LATANOPROST 0.005% OPHTH SOLUTION 2.5ML BOTTLE. OU SCH (20:19)
[2019-03-09] MEDS: PATCH REMOVAL. MC SCH (20:19)
--- NOTE | 2019-03-09 22:41 | PDOC ---
Exam Note: Scott Note: Please also refer to the separate dictated note~for this date of service dictated separately.~Patient seen individually. Discussed the patient with Nursing staff reviewed the chart.~Reviewed interim history and current functioning. Reviewed vital signs,~Labs/ Radiology~and current medications noted below. Continue current treatment with the changes noted in the dictated addendum note Assessment: Vital Signs: Vital Signs Date Time Temp Pulse Resp B/P (MAP) Pulse Ox O2 Delivery O2 Flow Rate FiO2 03/09/19 16:28 97.1 63 16 157/68 (97) 98 03/07/19 16:54 Room Air I&O Intake and Output 03/09/19 06:59 Intake Total 960 ml Balance 960 ml Intake Oral 960 ml # Voids 1 Labs: Laboratory Tests Test 03/09/19 07:32 03/09/19 09:31 Glucose (Fingerstick) 94 mg/dL (70-99) White Blood Count 8.5 x10^3/uL (4.0-11.0) Red Blood Count 3.03 x10^6/uL (4.30-5.70) L Hemoglobin 10.0 g/dL (13.0-17.5) L Hematocrit 30.2 % (39.0-53.0) L Mean Corpuscular Volume 100 fL (79-100) Mean Corpuscular Hemoglobin 33 pg (25-35) Mean Corpuscular Hemoglobin Concent 33 g/dL (31-37) Red Cell Distribution Width 16.4 % (11.5-14.5) H Platelet Count 195 x10^3/uL (140-400) Neutrophils (%) (Auto) 58 % (31-73) Lymphocytes (%) (Auto) 25 % (24-48) Monocytes (%) (Auto) 11 % (0-9) H Eosinophils (%) (Auto) 6 % (0-3) H Basophils (%) (Auto) 1 % (0-3) Neutrophils # (Auto) 4.9 x10^3uL (1.8-7.7) Lymphocytes # (Auto) 2.1 x10^3/uL (1.0-4.8) Monocytes # (Auto) 1.0 x10^3/uL (0.0-1.1) Eosinophils # (Auto) 0.5 x10^3/uL (0.0-0.7) Basophils # (Auto) 0.0 x10^3/uL (0.0-0.2) Sodium Level 139 mmol/L (136-145) Potassium Level 3.9 mmol/L (3.5-5.1) Chloride Level 105 mmol/L (98-107) Carbon Dioxide Level 29 mmol/L (21-32) Anion Gap 5 (6-14) L Blood Urea Nitrogen 17 mg/dL (8-26) Creatinine 1.3 mg/dL (0.7-1.3) Estimated GFR (Cockcroft-Gault) 52.0 BUN/Creatinine Ratio 13 (6-20) Glucose Level 176 mg/dL (70-99) H Calcium Level 7.9 mg/dL (8.5-10.1) L Total Bilirubin 0.2 mg/dL (0.2-1.0) Aspartate Amino Transferase (AST) 23 U/L (15-37) Alanine Aminotransferase (ALT) 22 U/L (16-63) Alkaline Phosphatase 131 U/L (46-116) H Total Protein 5.4 g/dL (6.4-8.2) L Albumin 2.1 g/dL (3.4-5.0) L Albumin/Globulin Ratio 0.6 (1.0-1.7) L Current Medications: Meds: Current Medications Sodium Chloride 1,000 ml @ 1,000 mls/hr 1X ONCE IV Last administered on at 17:31; Start 01/26/19 at 17:30; Stop 01/26/19 at 18:29; Status DC Lorazepam (Ativan) 1 mg 1X ONCE IV Last administered on 01/26/19at 21:22; Start 01/26/19 at 21:15; Stop 01/26/19 at 21:23; Status DC Lorazepam (Ativan) 1 mg 1X ONCE IV Last administered on 01/26/19at 22:44; Start 01/26/19 at 22:30; Stop 01/26/19 at 22:32; Status DC Acetaminophen (Tylenol) 650 mg PRN Q6HRS PRN PO PAIN / TEMP; Start 01/27/19 at 00:00; Status Cancel Multi-Ingredient Ointment (Analgesic [place]) 1 edyta PRN QID PRN TP MUSCLE PAIN; Start 01/27/19 at 00:00 Al Hydroxide/Mg Hydroxide (Mylanta Plus Xs) 15 ml PRN AFTMEALHC PRN PO DYSPEPSIA; Start 01/27/19 at 00:00 Magnesium Hydroxide (Milk Of Magnesia) 2,400 mg PRN QHS PRN PO CONSTIPATION Last administered on 02/03/19 08:05; Start 01/27/19 at 00:00 Clonazepam (KlonoPIN) 0.125 mg TID PO Last administered on 02/19/19 08:41; Start 01/27/19 at 09:00; Stop 02/19/19 at 12:07; Status DC Paroxetine HCl (Paxil) 40 mg DAILY PO Last administered on 02/01/19 08:27; Start 01/27/19 at 09:00; Stop 02/01/19 at 18:49; Status DC Trazodone HCl (Desyrel) 12.5 mg QHS PO ; Start 01/27/19 at 21:00; Stop 01/27/19 at 21:00; Status DC Olanzapine (ZyPREXA ZYDIS) 2.5 mg PRN Q2HR PRN PO PSYCHOSIS Last administered on 01/31/19 08:47; Start 01/27/19 at 01:00; Stop 01/31/19 at 20:14; Status DC Acetaminophen (Tylenol) 650 mg PRN QID PRN PO PAIN Last administered on 07:29; Start 01/27/19 at 01:00 Albuterol Sulfate (Ventolin) 1 mg PRN Q6HRS PRN INH SHORTNESS OF BREATH; Start 01/27/19 at 01:00 Aspirin (Hira Aspirin) 325 mg DAILYWBKFT PO Last administered on 02/01/19 08: 27; Start 01/27/19 at 08:00; Stop 02/01/19 at 13:38; Status DC Clonidine HCl (Catapres) 0.1 mg PRN DAILY PRN PO HYPERTENSION, SEE COMMENTS Last administered on 02/26/19 04:18; Start 01/27/19 at 01:00 Clopidogrel Bisulfate (Plavix) 75 mg DAILY PO Last administered on 03/09/19 08: 58; Start 01/27/19 at 09:00 Gabapentin (Neurontin) 100 mg BID94 PO Last administered on 02/05/19 08:34; Start 01/27/19 at 09:00; Stop 02/05/19 at 16:10; Status DC Gabapentin (Neurontin) 100 mg QHS PO Last administered on 02/04/19 20:17; Start 01/27/19 at 21:00; Stop 02/05/19 at 16:10; Status DC Levothyroxine Sodium (Synthroid) 75 mcg DAILY06 PO Last administered on 05:28; Start 01/27/19 at 06:00 Losartan Potassium (Cozaar) 50 mg DAILY PO Last administered on 01/27/19at 13:26 ; Start 01/27/19 at 09:00; Stop 01/27/19 at 14:32; Status DC Tamsulosin HCl (Flomax) 0.4 mg DAILY PO Last administered on 02/05/19 08:34; Start 01/27/19 at 09:00; Stop 02/05/19 at 16:10; Status DC Multivitamins/ Minerals (I-Alis) 1 tab BID PO Last administered on 03/09/19 20: 15; Start 01/27/19 at 09:00 Allopurinol (Zyloprim) 150 mg DAILY PO Last administered on 03/09/19 08:57; Start 01/27/19 at 09:00 Non-Formulary Medication (Aloe Vera/ Collagen (Sensi-Care Perineal Cleanser)) 1 edyta BID TP ; Start 01/27/19 at 09:00; Stop 01/27/19 at 09:00; Status DC Atenolol (Tenormin) 100 mg DAILY PO Last administered on 03/09/19 08:58; Start 01/27/19 at 09:00 Atorvastatin Calcium (Lipitor) 40 mg HS PO Last administered on 03/09/19 20:15 ; Start 01/27/19 at 21:00 Brimonidine Tartrate (Alphagan) 1 drop BID OD ; Start 01/27/19 at 09:00; Stop at 12:36; Status DC Dorzolamide HCl (Trusopt) 1 drop BID OD ; Start 01/27/19 at 09:00; Stop at 12:39; Status DC Finasteride (Proscar) 5 mg DAILY PO Last administered on 02/05/19 08:34; Start 01/27/19 at 09:00; Stop 02/05/19 at 16:10; Status DC Folic Acid (Folic Acid) 1 mg DAILY PO Last administered on 02/01/19 08:26; Start 01/27/19 at 09:00; Stop 02/01/19 at 13:38; Status DC Hydrochlorothiazide (Microzide) 12.5 mg DAILY PO Last administered on at 13:27; Start 01/27/19 at 09:00; Stop 01/27/19 at 14:32; Status DC Lactobacillus Rhamnosus (Culturelle) 1 cap DAILY PO Last administered on 08:34; Start 01/27/19 at 09:00; Stop 02/05/19 at 16:10; Status DC Latanoprost (Xalatan) 1 drop QHS OU Last administered on 03/06/19at 20:00; Start 01/27/19 at 21:00; Stop 03/07/19 at 16:13; Status DC Multivitamins/ Calcium (Thera-M Plus) 1 tab DAILY PO Last administered on 08:26; Start 01/27/19 at 09:00; Stop 02/01/19 at 13:38; Status DC Pantoprazole Sodium (Protonix) 40 mg DAILYAC PO Last administered on 01/28/19at 10:03; Start 01/27/19 at 07:30; Stop 01/29/19 at 11:24; Status DC Pilocarpine HCl (Pilocar) 1 drop TID OD ; Start 01/27/19 at 09:00; Stop at 12:38; Status DC Timolol Maleate (Timoptic 0.5% Ophth) 1 drop BID OD Last administered on at 08:53; Start 01/27/19 at 07:15; Stop 03/07/19 at 16:14; Status DC Brimonidine Tartrate (Alphagan) 1 drop BID OU Last administered on 03/07/19at 08: 53; Start 01/27/19 at 12:36; Stop 03/07/19 at 16:13; Status DC Pilocarpine HCl (Pilocar) 1 drop TID OU Last administered on 03/07/19 14:28; Start 01/27/19 at 12:38; Stop 03/07/19 at 16:14; Status DC Dorzolamide HCl (Trusopt) 1 drop TID OU Last administered on 02/05/19 14:00; Start 01/27/19 at 14:00; Stop 02/05/19 at 16:11; Status DC Olanzapine (ZyPREXA ZYDIS) 2.5 mg PRN Q2HR PRN PO PSYCHOSIS; Start 01/27/19 at 17:30; Stop 01/29/19 at 17:13; Status DC Trazodone HCl (Desyrel) 50 mg PRN QHS PRN PO INSOMNIA, MAY REPEAT X1 Last administered on 03/09/19 01:39; Start 01/27/19 at 17:30 Mirtazapine (Remeron) 7.5 mg QHS PO Last administered on 01/31/19 19:55; Start 01/28/19 at 21:00; Stop 02/01/19 at 18:50; Status DC Lansoprazole (Prevacid) 30 mg DAILYAC PO Last administered on 03/09/19 09:00; Start 01/30/19 at 07:30 Tuberculin PPD (Tubersol) 0.1 ml 1X ONCE ID Last administered on 01/30/19 15: 14; Start 01/30/19 at 14:45; Stop 01/30/19 at 14:52; Status DC Lidocaine (Lidoderm) 1 patch DAILY TD Last administered on 03/09/19 08:59; Start 01/31/19 at 18:00 Miscellaneous (Lidoderm Patch Removal) 1 ea QHS MC Last administered on 20:19; Start 02/01/19 at 03:00 Olanzapine (ZyPREXA ZYDIS) 5 mg PRN Q2HR PRN PO PSYCHOSIS Last administered on 03/06/19 16:45; Start 01/31/19 at 20:15 Aspirin (Children'S Aspirin) 81 mg DAILYWBKFT PO Last administered on 03/09/19 08:57; Start 02/02/19 at 08:00 Paroxetine HCl (Paxil) 30 mg DAILY PO Last administered on 02/04/19 11:29; Start 02/02/19 at 09:00; Stop 02/04/19 at 12:49; Status DC Mirtazapine (Remeron) 15 mg QHS PO Last administered on 03/09/19 20:15; Start 02/01/19 at 21:00 Clonazepam (KlonoPIN) 0.25 mg 1X ONCE PO Last administered on 02/01/19at 23:48; Start 02/02/19 at 00:00; Stop 02/02/19 at 00:01; Status DC Clonazepam (KlonoPIN) 0.25 mg 1X ONCE PO Last administered on 02/02/19at 01:47; Start 02/02/19 at 02:00; Stop 02/02/19 at 02:01; Status DC Olanzapine (ZyPREXA IM) 5 mg DAILY IM ; Start 02/04/19 at 09:00; Stop 02/04/19 at 09:00; Status DC Lorazepam (Ativan) 0.5 mg DAILY IM ; Start 02/04/19 at 09:00; Stop 02/04/19 at 09: 00; Status DC Lorazepam (Ativan) 0.5 mg DAILY IM Last administered on 02/25/19at 08:13; Start 02/03/19 at 11:45; Stop 02/26/19 at 11:11; Status DC Olanzapine (ZyPREXA IM) 5 mg DAILY IM Last administered on 02/03/19at 11:44; Start 02/03/19 at 11:45; Stop 02/05/19 at 18:32; Status DC Paroxetine HCl (Paxil) 20 mg DAILY PO Last administered on 02/08/19at 07:36; Start 02/05/19 at 09:00; Stop 02/08/19 at 08:59; Status DC Paroxetine HCl (Paxil) 10 mg DAILY PO Last administered on 02/10/19at 12:23; Start 02/08/19 at 09:00; Stop 02/11/19 at 08:59; Status DC Paroxetine HCl (Paxil) 5 mg DAILY PO Last administered on 02/13/19at 09:10; Start 02/11/19 at 09:00; Stop 02/14/19 at 08:59; Status DC Tamsulosin HCl (Flomax) 0.4 mg QHS PO Last administered on 03/09/19 20:15; Start 02/05/19 at 21:00 Dorzolamide HCl (Trusopt) 1 drop BID OU Last administered on 03/09/19 20:19; Start 02/05/19 at 21:00 Nystatin (Nystop) 15 edyta STK-MED ONCE TP Last administered on 02/05/19 21:04; Start 02/05/19 at 21:04; Stop 02/05/19 at 21:05; Status DC Nystatin (Nystop) 1 edyta BID TP Last administered on 03/09/19 20:16; Start at 21:30 Divalproex Sodium (Depakote Sprinkles) 125 mg 1500 PO Last administered on 02/25 14:53; Start 02/17/19 at 15:00; Stop 02/26/19 at 11:19; Status DC Clonazepam (KlonoPIN) 0.25 mg TID PO Last administered on 03/09/19 20:18; Start 02/19/19 at 14:00 Loperamide HCl (Imodium) 2 mg PRN Q15MIN PRN PO DIARRHEA; Start 02/21/19 at 22: 15 Divalproex Sodium (Depakote Sprinkles) 125 mg 1500,2100 PO Last administered on 03/09/19 20:15; Start 02/26/19 at 15:00 Brimonidine Tartrate (Alphagan) 1 drop BID OU Last administered on 03/09/19 20: 19; Start 03/07/19 at 16:13 Latanoprost (Xalatan) 1 drop QHS OU Last administered on 03/09/19 20:19; Start 03/07/19 at 16:13 Pilocarpine HCl (Pilocar) 1 drop TID OU Last administered on 03/09/19 20:19; Start 03/07/19 at 16:14 Timolol Maleate (Timoptic 0.5% Ophth) 1 drop BID OD Last administered on 20:19; Start 03/07/19 at 16:14 Active Scripts Active Reported Sensi-Care Perineal Cleanser (Aloe Vera/Collagen) 118 Ml Solution 1 Edyta TP BID Paroxetine Hcl 40 Mg Tablet 40 Mg PO DAILY Trazodone Hcl 50 Mg Tablet 12.5 Mg PO QHS Dorzolamide Hcl 10 Ml Drops 1 Drp OD BID Timoptic (Timolol Maleate) 10 Ml Drops 1 Drp OD BID Pilocarpine Hcl 5 Mg Tablet 1 Drop OD TID Latanoprost 2.5 Ml Drops 1 Drop OU QHS Alphagan P (Brimonidine Tartrate) 5 Ml Drops 1 Drop OD BID Pantoprazole Sodium 40 Mg Tablet.dr 40 Mg PO DAILY Cozaar (Losartan Potassium) 50 Mg Tablet 50 Mg PO DAILY Levothyroxine Sodium 75 Mcg Tablet 75 Mcg PO DAILYAC Culturelle (Lactobacillus Rhamnosus Gg) 1 Each Capsule 1 Each PO DAILY Gabapentin (Gabapentin) 100 Mg Capsule 100 Mg PO QHS Gabapentin (Gabapentin) 100 Mg Capsule 100 Mg PO BID Finasteride 5 Mg Tablet 5 Mg PO DAILY Clonidine Hcl 0.1 Mg Tablet 0.1 Mg PO PRN DAILY PRN Lipitor (Atorvastatin Calcium) 40 Mg Tablet 40 Mg PO DAILY Atenolol 100 Mg Tablet 100 Mg PO DAILY Allopurinol 300 Mg Tablet 150 Mg PO DAILY Proair Hfa Inhaler (Albuterol Sulfate) 8.5 Gm Hfa.aer.ad 1 Puff INH PRN Q6HRS PRN Multivitamins (Multivitamin) 1 Each Tablet 1 Each PO DAILY Aspirin 325 Mg Tablet 325 Mg PO DAILY Folic Acid 1 Mg Tablet 1 Mg PO DAILY Clopidogrel (Clopidogrel Bisulfate) 75 Mg Tablet 75 Mg PO DAILY Macuvite [employer] Tablet (A/C/E/Zinc Ox/Cupric Ox/Lutein) 1 Each Tablet 1 Each PO BID Tylenol (Acetaminophen) 325 Mg Tablet 650 Mg PO PRN QID PRN Clonazepam 0.125 Mg Tab.rapdis 0.125 Mg PO TID Tamsulosin Hcl 0.4 Mg Cap.er.24h 0.4 Mg PO DAILY Hydrochlorothiazide Tablet (Hydrochlorothiazide) 12.5 Mg Tablet 12.5 Mg PO DAILY I have reviewed the current psychotropics carefully including drug interactions. Risk benefit ratio favors no change other than as noted in my dictated progress note. Diagnosis: Problems: (1) Medical clearance for psychiatric admission (2) Anxiety disorder (3) Dementia with behavioral disturbance (4) Dementia, vascular, with delusions (5) Dementia, vascular, with depression (6) Dementia in Alzheimer's disease with delusions (7) Dementia in Alzheimer's disease with depression (8) Impulse control disorder PAOLO THOMAS MD Mar 09, 2019 22:41
--- NOTE | 2019-03-10 02:42 | NUR ---
Behavior Intervention Response and Plan: BIRP Note: Behavior: Assumed Care of patient, patient located in Patient Room at shift change. Patient exhibited the following behavior Appropriate, Calm, Withdrawn. Brief assessment on rounds of vital signs, medication needs, lab studies, and pain. Treatment plan problems . Intervention: Patient assessed and the following interventions initiated safety checks 15 Minute Checks Head to toe Assessment , Cognitive Assessment , Medications. Response: After interactions and interventions patient responded in the following manner, Sleeping , Drowsy ,Able to Focus on Task. Continue to assess behaviors and condition will continue to monitor throughout the shift as needed. Patient educated on ADL's, and hand hygiene. 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 Continue to assess patient for changes in above assessment. Monitor for medication needs, pain, and safety concerns. Hourly rounding performed to ensure safe environment.
[2019-03-10 06:04] VITALS: BP 145/68
[2019-03-10] MEDS: LEVOTHYROXINE 75 MCG TABLET PO SCH (06:33)
[2019-03-10] MEDS: MULTIVITAMIN I-VITE TABLET. PO SCH ×2 (07:29→19:27)
[2019-03-10] MEDS: ALLOPURINOL 100 MG TABLET. PO SCH (07:29)
[2019-03-10] MEDS: ASPIRIN 81 MG TAB.CHEW PO SCH (07:29)
[2019-03-10] MEDS: CLOPIDOGREL BISULFATE 75 MG TABLET PO SCH (07:29)
[2019-03-10] MEDS: LIDOCAINE (700MG/PATCH) PATCH. TD SCH (07:29)
[2019-03-10] MEDS: ATENOLOL 50 MG TABLET PO SCH (07:30)
[2019-03-10] MEDS: NYSTATIN TOPICAL POWDER 15GM BOTTLE. TP SCH ×2 (07:31→19:28)
[2019-03-10] MEDS: clonazePAM 0.5 MG TABLET PO SCH ×3 (09:14→19:29)
[2019-03-10] MEDS: LANSOPRAZOLE 30 MG TAB.RAP.DR PO SCH (09:14)
[2019-03-10] MEDS: DORZOLAMIDE 2% OPHTH SOLUTION 10ML BOTTLE. OU SCH ×2 (09:15→19:34)
[2019-03-10] MEDS: TIMOLOL 0.5% OPHTH SOLUTION 5ML BOTTLE. OD SCH ×2 (09:15→19:33)
[2019-03-10] MEDS: BRIMONIDINE 0.2% OPHTH SOLUTION 5ML BOTTLE. OU SCH ×2 (09:15→19:33)
[2019-03-10] MEDS: PILOCARPINE 1% OPHTH SOLUTION 15ML BOTTLE. OU SCH ×3 (09:15→19:33)
--- NOTE | 2019-03-10 09:17 | PN ---
DATE: 03/07/2019 PSYCHIATRIC PROGRESS NOTE This late entry 03/07/2019 covers elements not covered in my initial note. SUBJECTIVE: I met with the patient in the evening in the hallway. Overall, he has been more cooperative, calmer. He is in a wheelchair, hard of hearing. REVIEW OF SYSTEMS: No CV, , pulmonary, eye system symptoms on review. Reliability poor. However, as I talked to him, he was able to tell me that he is waiting for his son, Chino, to make arrangements for his transfer. "They tell me things, but they do not go through with it." He seemed more coherent, appropriate. MENTAL STATUS EXAM: Oriented to himself. Insight, judgment, recent and remote memory, attention, concentration, fund of knowledge poor, consistent with his diagnosis mentioned in my initial note. PLAN: No change from initial note. MAN Modesta THOMAS MD DR: JOYCE/krzysztof JOB#: [id number] / [id number]
--- NOTE | 2019-03-10 09:20 | PN ---
DATE: 03/08/2019 PSYCHIATRIC PROGRESS NOTE This late entry 03/08/2019, covers elements not covered in my initial note. SUBJECTIVE: I met with the patient in the evening. The patient slept 7-1/4 hours previous night. I met with him in his room at some length. Overall, the patient is doing better, remains confused, but more redirectable. REVIEW OF SYSTEMS: Hard of hearing, impaired ambulation, in wheelchair. No CV, , pulmonary, eye system symptoms on review. MENTAL STATUS EXAM: Oriented to himself. Insight, judgment, recent and remote memory, attention, concentration, fund of knowledge poor, consistent with his diagnosis mentioned in my initial note. PLAN: No change from initial note. MAN Modesta THOMAS MD DR: JOYCE/krzysztof JOB#: [id number] / [id number]
--- NOTE | 2019-03-10 09:53 | NUR ---
Home health referral was completed to [facility] on 03/09/19. Follow up call placed to Radha at [facility] who confirmed she had everything she needed to start care on 03/12/19. Call placed to Chino, son/POA, to review. Chino is meeting with Gen at [facility] now to complete necessary paperwork for Kevan's admission on 03/11/19. Kevan will be transported by family between 9:30-10am on 03/11/19. Chino indicated that PCP Dr. Rosa will see Kevan at [facility] this weekend. Chino prefers to make follow up appointment with Dr. Marino, psychiatrist, for Kevan.
--- NOTE | 2019-03-10 09:57 | NUR ---
[facility] Social Work Discharge Planning Form Patient Name TAE HOUSTON Admit Date: 01/26/2019 DISCHARGE PLAN Discharge Destination: [facility] Care Assessment: completed, copy placed in discharge folder Level II Assessment: N/A Transportation: Family will transport on 03/11/19, pear picker at 9:30-10am. Special Instructions/Notes: Family will arrange for follow up with PCP and psychiatrist in 10-14 days. DISCHARGE TO FACILITY Facility: [facility] Clinical Address: [address] [place] [address] Contact Name: braulio Blevins Contact Name: nurse Letty PCP: Dr. Rosa [phone], (fax) Psychiatrist: Dr. Marino [phone], (fax)
[2019-03-10] MEDS: DIVALPROEX 125 MG CAP.SPRINK PO SCH ×2 (13:39→19:27)
[2019-03-10 16:13] VITALS: BP 162/73
[2019-03-10] MEDS: cloNIDine HCL 0.1 MG TABLET PO PRN (17:26)
--- NOTE | 2019-03-10 17:35 | NUR ---
Wound Care patient seen per Wound care follow up for multiple wounds, see wound assessment. Pt has multiple traumatic wounds to bilateral feet/toes from kicking doors, etc- these wounds are now scabbed at this time, a picture was taken of bilateral feet. patient also has an unstageable pressure ulcer to the left heel, Cleansed wound, measured and pictured and applied Iodoflex with an abd pad, Kerlix and tape recommendations of change every other day. Coccyx was still slightly reddened from IAD, recommendations of continuing with Calazime cream, PRN. No other wounds noted on full skin inspection. patient needs to wear Heelmedix boots while in bed, applied the Heelmedix boots at this time. notified RN about the POC, wound care will continue to f/u.
--- NOTE | 2019-03-10 19:14 | NUR ---
Pt has been calm, cooperative, compliant and pleasant. Pt stays in his room for most of the day except for meals because pt states "I can't hear or see anything so I'd rather stay in my room." Pt's left heel was measured and pictured and updated wound care instructions given by wound care nurses today. Dressing changes are to occur every other day now instead every 3 days. Pt is to be discharged tomorrow.
[2019-03-10] MEDS: TAMSULOSIN 0.4 MG CAP.ER.24H. PO SCH (19:27)
[2019-03-10] MEDS: PATCH REMOVAL. MC SCH (19:27)
[2019-03-10] MEDS: MIRTAZAPINE 15 MG TABLET PO SCH (19:28)
[2019-03-10] MEDS: ATORVASTATIN CALCIUM 20 MG TABLET PO SCH (19:28)
[2019-03-10] MEDS: LATANOPROST 0.005% OPHTH SOLUTION 2.5ML BOTTLE. OU SCH (19:34)
--- NOTE | 2019-03-10 20:41 | PN ---
DATE: 03/09/2019 PSYCHIATRIC PROGRESS NOTE This late entry 03/09/2019 covers elements not covered in my initial note. SUBJECTIVE: I met with the patient in the evening. Overall, the patient is doing better, compliant with medications. Family visited him. Slept 6-1/2 hours. REVIEW OF SYSTEMS: He is seated in a wheelchair as I met with him. Ambulation impaired, hard of hearing. No CV, , pulmonary, eye system symptoms on review. MENTAL STATUS EXAM: Oriented to himself. Insight, judgment, recent and remote memory, attention, concentration, fund of knowledge poor, consistent with his diagnosis mentioned in my initial note. PLAN: No change from initial note. MAN Modesta THOMAS MD DR: JOYCE/krzysztof JOB#: [id number] / [id number]
--- NOTE | 2019-03-10 22:16 | NUR ---
Nursing note: Assumed care of pt in his room. He was asleep but easily awakened. He was calm and compliant. Meds taken whole. He is TRIBAL but pleasant.
--- NOTE | 2019-03-10 22:33 | PDOC ---
Exam Note: Scott Note: Please also refer to the separate dictated note~for this date of service dictated separately.~Patient seen individually. Discussed the patient with Nursing staff reviewed the chart.~Reviewed interim history and current functioning. Reviewed vital signs,~Labs/ Radiology~and current medications noted below. Continue current treatment with the changes noted in the dictated addendum note Assessment: Vital Signs: Vital Signs Date Time Temp Pulse Resp B/P (MAP) Pulse Ox O2 Delivery O2 Flow Rate FiO2 03/10/19 17:26 73 162/73 03/10/19 16:13 98.8 18 97 03/07/19 16:54 Room Air I&O Intake and Output 03/10/19 06:59 Intake Total 920 ml Balance 920 ml Intake Oral 920 ml # Bowel Movements 1 Labs: Laboratory Tests Test 03/10/19 07:41 Glucose (Fingerstick) 101 mg/dL (70-99) H Current Medications: Meds: Current Medications Sodium Chloride 1,000 ml @ 1,000 mls/hr 1X ONCE IV Last administered on at 17:31; Start 01/26/19 at 17:30; Stop 01/26/19 at 18:29; Status DC Lorazepam (Ativan) 1 mg 1X ONCE IV Last administered on 01/26/19at 21:22; Start 01/26/19 at 21:15; Stop 01/26/19 at 21:23; Status DC Lorazepam (Ativan) 1 mg 1X ONCE IV Last administered on 01/26/19at 22:44; Start 01/26/19 at 22:30; Stop 01/26/19 at 22:32; Status DC Acetaminophen (Tylenol) 650 mg PRN Q6HRS PRN PO PAIN / TEMP; Start 01/27/19 at 00:00; Status Cancel Multi-Ingredient Ointment (Analgesic [place]) 1 edyta PRN QID PRN TP MUSCLE PAIN; Start 01/27/19 at 00:00 Al Hydroxide/Mg Hydroxide (Mylanta Plus Xs) 15 ml PRN AFTMEALHC PRN PO DYSPEPSIA; Start 01/27/19 at 00:00 Magnesium Hydroxide (Milk Of Magnesia) 2,400 mg PRN QHS PRN PO CONSTIPATION Last administered on 02/03/19at 08:05; Start 01/27/19 at 00:00 Clonazepam (KlonoPIN) 0.125 mg TID PO Last administered on 02/19/19 08:41; Start 01/27/19 at 09:00; Stop 02/19/19 at 12:07; Status DC Paroxetine HCl (Paxil) 40 mg DAILY PO Last administered on 02/01/19 08:27; Start 01/27/19 at 09:00; Stop 02/01/19 at 18:49; Status DC Trazodone HCl (Desyrel) 12.5 mg QHS PO ; Start 01/27/19 at 21:00; Stop 01/27/19 at 21:00; Status DC Olanzapine (ZyPREXA ZYDIS) 2.5 mg PRN Q2HR PRN PO PSYCHOSIS Last administered on 01/31/19 08:47; Start 01/27/19 at 01:00; Stop 01/31/19 at 20:14; Status DC Acetaminophen (Tylenol) 650 mg PRN QID PRN PO PAIN Last administered on 07:29; Start 01/27/19 at 01:00 Albuterol Sulfate (Ventolin) 1 mg PRN Q6HRS PRN INH SHORTNESS OF BREATH; Start 01/27/19 at 01:00 Aspirin (Hira Aspirin) 325 mg DAILYWBKFT PO Last administered on 02/01/19 08: 27; Start 01/27/19 at 08:00; Stop 02/01/19 at 13:38; Status DC Clonidine HCl (Catapres) 0.1 mg PRN DAILY PRN PO HYPERTENSION, SEE COMMENTS Last administered on 03/10/19 17:26; Start 01/27/19 at 01:00 Clopidogrel Bisulfate (Plavix) 75 mg DAILY PO Last administered on 03/10/19 07: 29; Start 01/27/19 at 09:00 Gabapentin (Neurontin) 100 mg BID94 PO Last administered on 02/05/19 08:34; Start 01/27/19 at 09:00; Stop 02/05/19 at 16:10; Status DC Gabapentin (Neurontin) 100 mg QHS PO Last administered on 02/04/19 20:17; Start 01/27/19 at 21:00; Stop 02/05/19 at 16:10; Status DC Levothyroxine Sodium (Synthroid) 75 mcg DAILY06 PO Last administered on 06:33; Start 01/27/19 at 06:00 Losartan Potassium (Cozaar) 50 mg DAILY PO Last administered on 01/27/19at 13:26 ; Start 01/27/19 at 09:00; Stop 01/27/19 at 14:32; Status DC Tamsulosin HCl (Flomax) 0.4 mg DAILY PO Last administered on 02/05/19 08:34; Start 01/27/19 at 09:00; Stop 02/05/19 at 16:10; Status DC Multivitamins/ Minerals (I-Alis) 1 tab BID PO Last administered on 03/10/19 19: 27; Start 01/27/19 at 09:00 Allopurinol (Zyloprim) 150 mg DAILY PO Last administered on 03/10/19 07:29; Start 01/27/19 at 09:00 Non-Formulary Medication (Aloe Vera/ Collagen (Sensi-Care Perineal Cleanser)) 1 edyta BID TP ; Start 01/27/19 at 09:00; Stop 01/27/19 at 09:00; Status DC Atenolol (Tenormin) 100 mg DAILY PO Last administered on 03/10/19 07:30; Start 01/27/19 at 09:00 Atorvastatin Calcium (Lipitor) 40 mg HS PO Last administered on 03/10/19 19:28 ; Start 01/27/19 at 21:00 Brimonidine Tartrate (Alphagan) 1 drop BID OD ; Start 01/27/19 at 09:00; Stop at 12:36; Status DC Dorzolamide HCl (Trusopt) 1 drop BID OD ; Start 01/27/19 at 09:00; Stop at 12:39; Status DC Finasteride (Proscar) 5 mg DAILY PO Last administered on 02/05/19 08:34; Start 01/27/19 at 09:00; Stop 02/05/19 at 16:10; Status DC Folic Acid (Folic Acid) 1 mg DAILY PO Last administered on 02/01/19 08:26; Start 01/27/19 at 09:00; Stop 02/01/19 at 13:38; Status DC Hydrochlorothiazide (Microzide) 12.5 mg DAILY PO Last administered on 13:27; Start 01/27/19 at 09:00; Stop 01/27/19 at 14:32; Status DC Lactobacillus Rhamnosus (Culturelle) 1 cap DAILY PO Last administered on 08:34; Start 01/27/19 at 09:00; Stop 02/05/19 at 16:10; Status DC Latanoprost (Xalatan) 1 drop QHS OU Last administered on 03/06/19 20:00; Start 01/27/19 at 21:00; Stop 03/07/19 at 16:13; Status DC Multivitamins/ Calcium (Thera-M Plus) 1 tab DAILY PO Last administered on 08:26; Start 01/27/19 at 09:00; Stop 02/01/19 at 13:38; Status DC Pantoprazole Sodium (Protonix) 40 mg DAILYAC PO Last administered on 01/28/19 10:03; Start 01/27/19 at 07:30; Stop 01/29/19 at 11:24; Status DC Pilocarpine HCl (Pilocar) 1 drop TID OD ; Start 01/27/19 at 09:00; Stop at 12:38; Status DC Timolol Maleate (Timoptic 0.5% Ophth) 1 drop BID OD Last administered on 08:53; Start 01/27/19 at 07:15; Stop 03/07/19 at 16:14; Status DC Brimonidine Tartrate (Alphagan) 1 drop BID OU Last administered on 03/07/19 08: 53; Start 01/27/19 at 12:36; Stop 03/07/19 at 16:13; Status DC Pilocarpine HCl (Pilocar) 1 drop TID OU Last administered on 03/07/19 14:28; Start 01/27/19 at 12:38; Stop 03/07/19 at 16:14; Status DC Dorzolamide HCl (Trusopt) 1 drop TID OU Last administered on 02/05/19 14:00; Start 01/27/19 at 14:00; Stop 02/05/19 at 16:11; Status DC Olanzapine (ZyPREXA ZYDIS) 2.5 mg PRN Q2HR PRN PO PSYCHOSIS; Start 01/27/19 at 17:30; Stop 01/29/19 at 17:13; Status DC Trazodone HCl (Desyrel) 50 mg PRN QHS PRN PO INSOMNIA, MAY REPEAT X1 Last administered on 03/09/19 01:39; Start 01/27/19 at 17:30 Mirtazapine (Remeron) 7.5 mg QHS PO Last administered on 01/31/19 19:55; Start 01/28/19 at 21:00; Stop 02/01/19 at 18:50; Status DC Lansoprazole (Prevacid) 30 mg DAILYAC PO Last administered on 03/10/19 09:14; Start 01/30/19 at 07:30 Tuberculin PPD (Tubersol) 0.1 ml 1X ONCE ID Last administered on 01/30/19 15: 14; Start 01/30/19 at 14:45; Stop 01/30/19 at 14:52; Status DC Lidocaine (Lidoderm) 1 patch DAILY TD Last administered on 03/10/19 07:29; Start 01/31/19 at 18:00 Miscellaneous (Lidoderm Patch Removal) 1 ea QHS MC Last administered on 19:27; Start 02/01/19 at 03:00 Olanzapine (ZyPREXA ZYDIS) 5 mg PRN Q2HR PRN PO PSYCHOSIS Last administered on 03/06/19 16:45; Start 01/31/19 at 20:15 Aspirin (Children'S Aspirin) 81 mg DAILYWBKFT PO Last administered on 03/10/19 07:29; Start 02/02/19 at 08:00 Paroxetine HCl (Paxil) 30 mg DAILY PO Last administered on 02/04/19 11:29; Start 02/02/19 at 09:00; Stop 02/04/19 at 12:49; Status DC Mirtazapine (Remeron) 15 mg QHS PO Last administered on 03/10/19 19:28; Start 02/01/19 at 21:00 Clonazepam (KlonoPIN) 0.25 mg 1X ONCE PO Last administered on 02/01/19 23:48; Start 02/02/19 at 00:00; Stop 02/02/19 at 00:01; Status DC Clonazepam (KlonoPIN) 0.25 mg 1X ONCE PO Last administered on 02/02/19at 01:47; Start 02/02/19 at 02:00; Stop 02/02/19 at 02:01; Status DC Olanzapine (ZyPREXA IM) 5 mg DAILY IM ; Start 02/04/19 at 09:00; Stop 02/04/19 at 09:00; Status DC Lorazepam (Ativan) 0.5 mg DAILY IM ; Start 02/04/19 at 09:00; Stop 02/04/19 at 09: 00; Status DC Lorazepam (Ativan) 0.5 mg DAILY IM Last administered on 02/25/19at 08:13; Start 02/03/19 at 11:45; Stop 02/26/19 at 11:11; Status DC Olanzapine (ZyPREXA IM) 5 mg DAILY IM Last administered on 02/03/19at 11:44; Start 02/03/19 at 11:45; Stop 02/05/19 at 18:32; Status DC Paroxetine HCl (Paxil) 20 mg DAILY PO Last administered on 02/08/19at 07:36; Start 02/05/19 at 09:00; Stop 02/08/19 at 08:59; Status DC Paroxetine HCl (Paxil) 10 mg DAILY PO Last administered on 02/10/19at 12:23; Start 02/08/19 at 09:00; Stop 02/11/19 at 08:59; Status DC Paroxetine HCl (Paxil) 5 mg DAILY PO Last administered on 02/13/19at 09:10; Start 02/11/19 at 09:00; Stop 02/14/19 at 08:59; Status DC Tamsulosin HCl (Flomax) 0.4 mg QHS PO Last administered on 03/10/19 19:27; Start 02/05/19 at 21:00 Dorzolamide HCl (Trusopt) 1 drop BID OU Last administered on 03/10/19at 19:34; Start 02/05/19 at 21:00 Nystatin (Nystop) 15 edyta STK-MED ONCE TP Last administered on 02/05/19at 21:04; Start 02/05/19 at 21:04; Stop 02/05/19 at 21:05; Status DC Nystatin (Nystop) 1 eydta BID TP Last administered on 03/10/19 19:28; Start at 21:30 Divalproex Sodium (Depakote Sprinkles) 125 mg 1500 PO Last administered on 02/25at 14:53; Start 02/17/19 at 15:00; Stop 02/26/19 at 11:19; Status DC Clonazepam (KlonoPIN) 0.25 mg TID PO Last administered on 03/10/19 19:29; Start 02/19/19 at 14:00 Loperamide HCl (Imodium) 2 mg PRN Q15MIN PRN PO DIARRHEA; Start 02/21/19 at 22: 15 Divalproex Sodium (Depakote Sprinkles) 125 mg 1500,2100 PO Last administered on 03/10/19 19:27; Start 02/26/19 at 15:00 Brimonidine Tartrate (Alphagan) 1 drop BID OU Last administered on 03/10/19 19: 33; Start 03/07/19 at 16:13 Latanoprost (Xalatan) 1 drop QHS OU Last administered on 03/10/19 19:34; Start 03/07/19 at 16:13 Pilocarpine HCl (Pilocar) 1 drop TID OU Last administered on 03/10/19 19:33; Start 03/07/19 at 16:14 Timolol Maleate (Timoptic 0.5% Ophth) 1 drop BID OD Last administered on 19:33; Start 03/07/19 at 16:14 Active Scripts Active Reported Sensi-Care Perineal Cleanser (Aloe Vera/Collagen) 118 Ml Solution 1 Edyta TP BID Paroxetine Hcl 40 Mg Tablet 40 Mg PO DAILY Trazodone Hcl 50 Mg Tablet 12.5 Mg PO QHS Dorzolamide Hcl 10 Ml Drops 1 Drp OD BID Timoptic (Timolol Maleate) 10 Ml Drops 1 Drp OD BID Pilocarpine Hcl 5 Mg Tablet 1 Drop OD TID Latanoprost 2.5 Ml Drops 1 Drop OU QHS Alphagan P (Brimonidine Tartrate) 5 Ml Drops 1 Drop OD BID Pantoprazole Sodium 40 Mg Tablet.dr 40 Mg PO DAILY Cozaar (Losartan Potassium) 50 Mg Tablet 50 Mg PO DAILY Levothyroxine Sodium 75 Mcg Tablet 75 Mcg PO DAILYAC Culturelle (Lactobacillus Rhamnosus Gg) 1 Each Capsule 1 Each PO DAILY Gabapentin (Gabapentin) 100 Mg Capsule 100 Mg PO QHS Gabapentin (Gabapentin) 100 Mg Capsule 100 Mg PO BID Finasteride 5 Mg Tablet 5 Mg PO DAILY Clonidine Hcl 0.1 Mg Tablet 0.1 Mg PO PRN DAILY PRN Lipitor (Atorvastatin Calcium) 40 Mg Tablet 40 Mg PO DAILY Atenolol 100 Mg Tablet 100 Mg PO DAILY Allopurinol 300 Mg Tablet 150 Mg PO DAILY Proair Hfa Inhaler (Albuterol Sulfate) 8.5 Gm Hfa.aer.ad 1 Puff INH PRN Q6HRS PRN Multivitamins (Multivitamin) 1 Each Tablet 1 Each PO DAILY Aspirin 325 Mg Tablet 325 Mg PO DAILY Folic Acid 1 Mg Tablet 1 Mg PO DAILY Clopidogrel (Clopidogrel Bisulfate) 75 Mg Tablet 75 Mg PO DAILY Macuvite [employer] Tablet (A/C/E/Zinc Ox/Cupric Ox/Lutein) 1 Each Tablet 1 Each PO BID Tylenol (Acetaminophen) 325 Mg Tablet 650 Mg PO PRN QID PRN Clonazepam 0.125 Mg Tab.rapdis 0.125 Mg PO TID Tamsulosin Hcl 0.4 Mg Cap.er.24h 0.4 Mg PO DAILY Hydrochlorothiazide Tablet (Hydrochlorothiazide) 12.5 Mg Tablet 12.5 Mg PO DAILY I have reviewed the current psychotropics carefully including drug interactions. Risk benefit ratio favors no change other than as noted in my dictated progress note. Diagnosis: Problems: (1) Medical clearance for psychiatric admission (2) Anxiety disorder (3) Dementia with behavioral disturbance (4) Dementia, vascular, with delusions (5) Dementia, vascular, with depression (6) Dementia in Alzheimer's disease with delusions (7) Dementia in Alzheimer's disease with depression (8) Impulse control disorder PAOLO THOMAS MD Mar 10, 2019 22:33
[2019-03-11] MEDS ORDERED: CLON0.5T11 PO (00:25)
[2019-03-11] MEDS ORDERED: ASPI-612 PO (00:35)
[2019-03-11] MEDS ORDERED: DIVA125C2 PO (00:36)
[2019-03-11] MEDS ORDERED: LIDO700A39 TP (00:39)
[2019-03-11] MEDS ORDERED: LOPE2CAP PO (00:40)
[2019-03-11] MEDS ORDERED: MAG30ORA2 PO (00:41)
[2019-03-11] MEDS ORDERED: MAGN2400 PO (00:42)
[2019-03-11] MEDS ORDERED: MIRT15TA3 PO (00:43)
[2019-03-11] MEDS ORDERED: METH29OI TP (00:43)
[2019-03-11] MEDS ORDERED: NYST15PO9 TP (00:45)
[2019-03-11] MEDS ORDERED: OLAN5TAB5 PO (00:46)
[2019-03-11] MEDS: LEVOTHYROXINE 75 MCG TABLET PO SCH (05:34)
[2019-03-11 05:58] VITALS: BP 152/67
[2019-03-11] MEDS: MULTIVITAMIN I-VITE TABLET. PO SCH (07:36)
[2019-03-11] MEDS: ALLOPURINOL 100 MG TABLET. PO SCH (07:36)
[2019-03-11] MEDS: LIDOCAINE (700MG/PATCH) PATCH. TD SCH (07:36)
[2019-03-11] MEDS: CLOPIDOGREL BISULFATE 75 MG TABLET PO SCH (07:36)
[2019-03-11] MEDS: ASPIRIN 81 MG TAB.CHEW PO SCH (07:36)
[2019-03-11 07:37] VITALS: BP 152/67
[2019-03-11] MEDS: ATENOLOL 50 MG TABLET PO SCH (07:37)
[2019-03-11] MEDS: PILOCARPINE 1% OPHTH SOLUTION 15ML BOTTLE. OU SCH (07:37)
[2019-03-11] MEDS: BRIMONIDINE 0.2% OPHTH SOLUTION 5ML BOTTLE. OU SCH (07:37)
[2019-03-11] MEDS: DORZOLAMIDE 2% OPHTH SOLUTION 10ML BOTTLE. OU SCH (07:38)
[2019-03-11] MEDS: TIMOLOL 0.5% OPHTH SOLUTION 5ML BOTTLE. OD SCH (07:38)
[2019-03-11] MEDS: NYSTATIN TOPICAL POWDER 15GM BOTTLE. TP SCH (07:39)
[2019-03-11] MEDS: LANSOPRAZOLE 30 MG TAB.RAP.DR PO SCH (07:40)
[2019-03-11] MEDS: clonazePAM 0.5 MG TABLET PO SCH (07:40)
[2019-03-11] MEDS: ACETAMINOPHEN 325 MG TABLET PO PRN (07:56)
--- NOTE | 2019-03-11 08:54 | NUR ---
Faxed wound care note from 03/10/19 to Radha at [facility] as they will follow for wound care at [facility].
[2019-03-11] MEDS ORDERED: [UNRECOGNIZED DRUG - CODE] OP (09:15)
[2019-03-11] MEDS ORDERED: [UNRECOGNIZED DRUG - CODE] OD (09:16)
--- NOTE | 2019-03-11 10:31 | NUR ---
Transition Record was faxed to follow-up provider with the following elements: Reason for admission, procedures, tests, principal diagnosis, pending studies, patient instructions, 24/06 contact information for unit, phone number to obtain pending test results, plan for follow-up care, physician follow-up, advanced directive information, and medication list with dose, duration and instructions. This information was included in the following documents: History and physical, lab results, study results, progress notes, social work planning form, DC instruction form, patient visit summary, and medication reconciliation form. Date & time record faxed: Dr. Rosa- 03/11/19 @ 0951 Dr[address] Marino- 03/11/19 @ 0955 [facility]- 03/11/19 @ 1035 Record faxed to: see above Record discussed with/ report given to: JAMAAL Saenz at [facility]
--- NOTE | 2019-03-11 22:42 | PDOC ---
Exam Note: Scott Note: Please also refer to the separate dictated note~for this date of service dictated separately.~Patient seen individually. Discussed the patient with Nursing staff reviewed the chart.~Reviewed interim history and current functioning. Reviewed vital signs,~Labs/ Radiology~and current medications noted below. Continue current treatment with the changes noted in the dictated addendum note Assessment: Vital Signs: Vital Signs Date Time Temp Pulse Resp B/P (MAP) Pulse Ox O2 Delivery O2 Flow Rate FiO2 03/11/19 07:37 75 152/67 03/11/19 05:58 97.9 20 95 03/07/19 16:54 Room Air I&O Intake and Output 03/11/19 07:00 Intake Total 1160 ml Balance 1160 ml Intake Oral 1160 ml Labs: Laboratory Tests Test 03/11/19 07:33 Glucose (Fingerstick) 161 mg/dL (70-99) H Current Medications: Meds: Current Medications Sodium Chloride 1,000 ml @ 1,000 mls/hr 1X ONCE IV Last administered on at 17:31; Start 01/26/19 at 17:30; Stop 01/26/19 at 18:29; Status DC Lorazepam (Ativan) 1 mg 1X ONCE IV Last administered on 01/26/19at 21:22; Start 01/26/19 at 21:15; Stop 01/26/19 at 21:23; Status DC Lorazepam (Ativan) 1 mg 1X ONCE IV Last administered on 01/26/19at 22:44; Start 01/26/19 at 22:30; Stop 01/26/19 at 22:32; Status DC Acetaminophen (Tylenol) 650 mg PRN Q6HRS PRN PO PAIN / TEMP; Start 01/27/19 at 00:00; Status Cancel Multi-Ingredient Ointment (Analgesic Gilmer) 1 edyta PRN QID PRN TP MUSCLE PAIN; Start 01/27/19 at 00:00; Stop 03/11/19 at 10:47; Status DC Al Hydroxide/Mg Hydroxide (Mylanta Plus Xs) 15 ml PRN AFTMEALHC PRN PO DYSPEPSIA; Start 01/27/19 at 00:00; Stop 03/11/19 at 10:47; Status DC Magnesium Hydroxide (Milk Of Magnesia) 2,400 mg PRN QHS PRN PO CONSTIPATION Last administered on 3/5/19at 08:05; Start 01/27/19 at 00:00; Stop 03/11/19 at 10:47; Status DC Clonazepam (KlonoPIN) 0.125 mg TID PO Last administered on 02/19/19 08:41; Start 01/27/19 at 09:00; Stop 02/19/19 at 12:07; Status DC Paroxetine HCl (Paxil) 40 mg DAILY PO Last administered on 02/01/19 08:27; Start 01/27/19 at 09:00; Stop 02/01/19 at 18:49; Status DC Trazodone HCl (Desyrel) 12.5 mg QHS PO ; Start 01/27/19 at 21:00; Stop 01/27/19 at 21:00; Status DC Olanzapine (ZyPREXA ZYDIS) 2.5 mg PRN Q2HR PRN PO PSYCHOSIS Last administered on 01/31/19 08:47; Start 01/27/19 at 01:00; Stop 01/31/19 at 20:14; Status DC Acetaminophen (Tylenol) 650 mg PRN QID PRN PO PAIN Last administered on 07:56; Start 01/27/19 at 01:00; Stop 03/11/19 at 10:47; Status DC Albuterol Sulfate (Ventolin) 1 mg PRN Q6HRS PRN INH SHORTNESS OF BREATH; Start 01/27/19 at 01:00; Stop 03/11/19 at 10:47; Status DC Aspirin (Hira Aspirin) 325 mg DAILYWBKFT PO Last administered on 02/01/19 08: 27; Start 01/27/19 at 08:00; Stop 02/01/19 at 13:38; Status DC Clonidine HCl (Catapres) 0.1 mg PRN DAILY PRN PO HYPERTENSION, SEE COMMENTS Last administered on 03/10/19 17:26; Start 01/27/19 at 01:00; Stop 03/11/19 at 10:47; Status DC Clopidogrel Bisulfate (Plavix) 75 mg DAILY PO Last administered on 03/11/19 07 :36; Start 01/27/19 at 09:00; Stop 03/11/19 at 10:47; Status DC Gabapentin (Neurontin) 100 mg BID94 PO Last administered on 02/05/19 08:34; Start 01/27/19 at 09:00; Stop 02/05/19 at 16:10; Status DC Gabapentin (Neurontin) 100 mg QHS PO Last administered on 02/04/19at 20:17; Start 01/27/19 at 21:00; Stop 02/05/19 at 16:10; Status DC Levothyroxine Sodium (Synthroid) 75 mcg DAILY06 PO Last administered on at 05:34; Start 01/27/19 at 06:00; Stop 03/11/19 at 10:47; Status DC Losartan Potassium (Cozaar) 50 mg DAILY PO Last administered on 01/27/19at 13:26 ; Start 01/27/19 at 09:00; Stop 01/27/19 at 14:32; Status DC Tamsulosin HCl (Flomax) 0.4 mg DAILY PO Last administered on 02/05/19 08:34; Start 01/27/19 at 09:00; Stop 02/05/19 at 16:10; Status DC Multivitamins/ Minerals (I-Alis) 1 tab BID PO Last administered on 03/11/19at 07 :36; Start 01/27/19 at 09:00; Stop 03/11/19 at 10:47; Status DC Allopurinol (Zyloprim) 150 mg DAILY PO Last administered on 03/11/19at 07:36; Start 01/27/19 at 09:00; Stop 03/11/19 at 10:47; Status DC Non-Formulary Medication (Aloe Vera/ Collagen (Sensi-Care Perineal Cleanser)) 1 edyta BID TP ; Start 01/27/19 at 09:00; Stop 01/27/19 at 09:00; Status DC Atenolol (Tenormin) 100 mg DAILY PO Last administered on 03/11/19at 07:37; Start 01/27/19 at 09:00; Stop 03/11/19 at 10:47; Status DC Atorvastatin Calcium (Lipitor) 40 mg HS PO Last administered on 03/10/19at 19:28 ; Start 01/27/19 at 21:00; Stop 03/11/19 at 10:47; Status DC Brimonidine Tartrate (Alphagan) 1 drop BID OD ; Start 01/27/19 at 09:00; Stop at 12:36; Status DC Dorzolamide HCl (Trusopt) 1 drop BID OD ; Start 01/27/19 at 09:00; Stop at 12:39; Status DC Finasteride (Proscar) 5 mg DAILY PO Last administered on 02/05/19 08:34; Start 01/27/19 at 09:00; Stop 02/05/19 at 16:10; Status DC Folic Acid (Folic Acid) 1 mg DAILY PO Last administered on 02/01/19 08:26; Start 01/27/19 at 09:00; Stop 02/01/19 at 13:38; Status DC Hydrochlorothiazide (Microzide) 12.5 mg DAILY PO Last administered on at 13:27; Start 01/27/19 at 09:00; Stop 01/27/19 at 14:32; Status DC Lactobacillus Rhamnosus (Culturelle) 1 cap DAILY PO Last administered on at 08:34; Start 01/27/19 at 09:00; Stop 02/05/19 at 16:10; Status DC Latanoprost (Xalatan) 1 drop QHS OU Last administered on 03/06/19at 20:00; Start 01/27/19 at 21:00; Stop 03/07/19 at 16:13; Status DC Multivitamins/ Calcium (Thera-M Plus) 1 tab DAILY PO Last administered on 08:26; Start 01/27/19 at 09:00; Stop 02/01/19 at 13:38; Status DC Pantoprazole Sodium (Protonix) 40 mg DAILYAC PO Last administered on 01/28/19at 10:03; Start 01/27/19 at 07:30; Stop 01/29/19 at 11:24; Status DC Pilocarpine HCl (Pilocar) 1 drop TID OD ; Start 01/27/19 at 09:00; Stop at 12:38; Status DC Timolol Maleate (Timoptic 0.5% Ophth) 1 drop BID OD Last administered on at 08:53; Start 01/27/19 at 07:15; Stop 03/07/19 at 16:14; Status DC Brimonidine Tartrate (Alphagan) 1 drop BID OU Last administered on 03/07/19 08: 53; Start 01/27/19 at 12:36; Stop 03/07/19 at 16:13; Status DC Pilocarpine HCl (Pilocar) 1 drop TID OU Last administered on 03/07/19 14:28; Start 01/27/19 at 12:38; Stop 03/07/19 at 16:14; Status DC Dorzolamide HCl (Trusopt) 1 drop TID OU Last administered on 02/05/19at 14:00; Start 01/27/19 at 14:00; Stop 02/05/19 at 16:11; Status DC Olanzapine (ZyPREXA ZYDIS) 2.5 mg PRN Q2HR PRN PO PSYCHOSIS; Start 01/27/19 at 17:30; Stop 01/29/19 at 17:13; Status DC Trazodone HCl (Desyrel) 50 mg PRN QHS PRN PO INSOMNIA, MAY REPEAT X1 Last administered on 03/09/19at 01:39; Start 01/27/19 at 17:30; Stop 03/11/19 at 10:47 ; Status DC Mirtazapine (Remeron) 7.5 mg QHS PO Last administered on 01/31/19 19:55; Start 01/28/19 at 21:00; Stop 02/01/19 at 18:50; Status DC Lansoprazole (Prevacid) 30 mg DAILYAC PO Last administered on 03/11/19 07:40; Start 01/30/19 at 07:30; Stop 03/11/19 at 10:47; Status DC Tuberculin PPD (Tubersol) 0.1 ml 1X ONCE ID Last administered on 01/30/19 15: 14; Start 01/30/19 at 14:45; Stop 01/30/19 at 14:52; Status DC Lidocaine (Lidoderm) 1 patch DAILY TD Last administered on 03/11/19 07:36; Start 01/31/19 at 18:00; Stop 03/11/19 at 10:47; Status DC Miscellaneous (Lidoderm Patch Removal) 1 ea QHS MC Last administered on at 19:27; Start 02/01/19 at 03:00; Stop 03/11/19 at 10:47; Status DC Olanzapine (ZyPREXA ZYDIS) 5 mg PRN Q2HR PRN PO PSYCHOSIS Last administered on 03/06/19at 16:45; Start 01/31/19 at 20:15; Stop 03/11/19 at 10:47; Status DC Aspirin (Children'S Aspirin) 81 mg DAILYWBKFT PO Last administered on at 07:36; Start 02/02/19 at 08:00; Stop 03/11/19 at 10:47; Status DC Paroxetine HCl (Paxil) 30 mg DAILY PO Last administered on 02/04/19at 11:29; Start 02/02/19 at 09:00; Stop 02/04/19 at 12:49; Status DC Mirtazapine (Remeron) 15 mg QHS PO Last administered on 03/10/19at 19:28; Start 02/01/19 at 21:00; Stop 03/11/19 at 10:47; Status DC Clonazepam (KlonoPIN) 0.25 mg 1X ONCE PO Last administered on 02/01/19at 23:48; Start 02/02/19 at 00:00; Stop 02/02/19 at 00:01; Status DC Clonazepam (KlonoPIN) 0.25 mg 1X ONCE PO Last administered on 02/02/19at 01:47; Start 02/02/19 at 02:00; Stop 02/02/19 at 02:01; Status DC Olanzapine (ZyPREXA IM) 5 mg DAILY IM ; Start 02/04/19 at 09:00; Stop 02/04/19 at 09:00; Status DC Lorazepam (Ativan) 0.5 mg DAILY IM ; Start 02/04/19 at 09:00; Stop 02/04/19 at 09: 00; Status DC Lorazepam (Ativan) 0.5 mg DAILY IM Last administered on 02/25/19at 08:13; Start 02/03/19 at 11:45; Stop 02/26/19 at 11:11; Status DC Olanzapine (ZyPREXA IM) 5 mg DAILY IM Last administered on 02/03/19at 11:44; Start 02/03/19 at 11:45; Stop 02/05/19 at 18:32; Status DC Paroxetine HCl (Paxil) 20 mg DAILY PO Last administered on 02/08/19 07:36; Start 02/05/19 at 09:00; Stop 02/08/19 at 08:59; Status DC Paroxetine HCl (Paxil) 10 mg DAILY PO Last administered on 02/10/19 12:23; Start 02/08/19 at 09:00; Stop 02/11/19 at 08:59; Status DC Paroxetine HCl (Paxil) 5 mg DAILY PO Last administered on 02/13/19at 09:10; Start 02/11/19 at 09:00; Stop 02/14/19 at 08:59; Status DC Tamsulosin HCl (Flomax) 0.4 mg QHS PO Last administered on 03/10/19 19:27; Start 02/05/19 at 21:00; Stop 03/11/19 at 10:47; Status DC Dorzolamide HCl (Trusopt) 1 drop BID OU Last administered on 03/11/19 07:38; Start 02/05/19 at 21:00; Stop 03/11/19 at 10:47; Status DC Nystatin (Nystop) 15 edyta STK-MED ONCE TP Last administered on 02/05/19 21:04; Start 02/05/19 at 21:04; Stop 02/05/19 at 21:05; Status DC Nystatin (Nystop) 1 edyta BID TP Last administered on 03/11/19 07:39; Start 02/05 at 21:30; Stop 03/11/19 at 10:47; Status DC Divalproex Sodium (Depakote Sprinkles) 125 mg 1500 PO Last administered on 02/25at 14:53; Start 02/17/19 at 15:00; Stop 02/26/19 at 11:19; Status DC Clonazepam (KlonoPIN) 0.25 mg TID PO Last administered on 03/11/19 07:40; Start 02/19/19 at 14:00; Stop 03/11/19 at 10:47; Status DC Loperamide HCl (Imodium) 2 mg PRN Q15MIN PRN PO DIARRHEA; Start 02/21/19 at 22: 15; Stop 03/11/19 at 10:47; Status DC Divalproex Sodium (Depakote Sprinkles) 125 mg 1500,2100 PO Last administered on 03/10/19 19:27; Start 02/26/19 at 15:00; Stop 03/11/19 at 10:47; Status DC Brimonidine Tartrate (Alphagan) 1 drop BID OU Last administered on 03/11/19at 07 :37; Start 03/07/19 at 16:13; Stop 03/11/19 at 10:47; Status DC Latanoprost (Xalatan) 1 drop QHS OU Last administered on 03/10/19at 19:34; Start 03/07/19 at 16:13; Stop 03/11/19 at 10:47; Status DC Pilocarpine HCl (Pilocar) 1 drop TID OU Last administered on 03/11/19at 07:37; Start 03/07/19 at 16:14; Stop 03/11/19 at 10:47; Status DC Timolol Maleate (Timoptic 0.5% Ophth) 1 drop BID OD Last administered on at 07:38; Start 03/07/19 at 16:14; Stop 03/11/19 at 10:47; Status DC Active Scripts Active Reported Pilocarpine Hcl 15 Ml Drops 1 Drop OD TID Zyprexa Zydis (Olanzapine) 5 Mg Tab.rapdis 5 Mg PO PRN Q2HR PRN Dissolve in mouth. Maximum 20mg in 24 hours, ok to give up to 10mg after 20mg in 24 hours have been reached. Nystatin 15 Gm Powder 1 Edyta TP BID Mirtazapine 15 Mg Tablet 15 Mg PO QHS Analgesic Gilmer (Methyl Salicylate/Menthol) 28 Gm Oint...g. 1 Applic TP PRN QID PRN Milk Of Magnesia (Magnesium Hydroxide) 2,400 Mg/10 Ml Oral.susp 2,400 Mg PO PRN QHS PRN Mag-Al Plus Xs Suspension (Mag Hydrox/Al Hydrox/Simeth) 30 Ml Oral.susp 15 Ml PO PRN AFTMEALHC PRN Loperamide (Loperamide Hcl) 2 Mg Capsule 2 Mg PO PRN Q15MIN PRN Not to exceed 8 capsules in 24 hours Lidocaine 1 Each Adh..patch 1 Each TP DAILY Depakote Sprinkle (Divalproex Sodium) 125 Mg Cap.sprink 125 Mg PO BID@1500, 2100 Aspirin Ec (Aspirin) 81 Mg Tablet.dr 81 Mg PO DAILY Clonazepam 0.5 Mg Tablet 0.25 Mg PO TID Trazodone Hcl 50 Mg Tablet 50 Mg PO QHS May repeat 1X Dorzolamide Hcl 10 Ml Drops 1 Drp OD BID Timoptic (Timolol Maleate) 10 Ml Drops 1 Drp OD BID Latanoprost 2.5 Ml Drops 1 Drop OU QHS Separate from other opthalmic meds by at least 5 minutes Alphagan P (Brimonidine Tartrate) 5 Ml Drops 1 Drop OD BID Pantoprazole Sodium 40 Mg Tablet.dr 40 Mg PO DAILY Levothyroxine Sodium 75 Mcg Tablet 75 Mcg PO DAILYAC Clonidine Hcl 0.1 Mg Tablet 0.1 Mg PO PRN DAILY PRN Lipitor (Atorvastatin Calcium) 40 Mg Tablet 40 Mg PO HS Atenolol 100 Mg Tablet 100 Mg PO DAILY Allopurinol 300 Mg Tablet 150 Mg PO DAILY Proair Hfa Inhaler (Albuterol Sulfate) 8.5 Gm Hfa.aer.ad 1 Puff INH PRN Q6HRS PRN Multivitamins (Multivitamin) 1 Each Tablet 1 Each PO DAILY Clopidogrel (Clopidogrel Bisulfate) 75 Mg Tablet 75 Mg PO DAILY Tylenol (Acetaminophen) 325 Mg Tablet 650 Mg PO PRN QID PRN Tamsulosin Hcl 0.4 Mg Cap.er.24h 0.4 Mg PO DAILY I have reviewed the current psychotropics carefully including drug interactions. Risk benefit ratio favors no change other than as noted in my dictated progress note. Diagnosis: Problems: (1) Anxiety disorder (2) Dementia, vascular, with delusions (3) Dementia, vascular, with depression (4) Dementia in Alzheimer's disease with delusions (5) Dementia in Alzheimer's disease with depression (6) Impulse control disorder PAOLO THOMAS MD Mar 11, 2019 22:42
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
--- NOTE | 2019-03-12 20:25 | PN ---
DATE: 03/10/2019 PSYCHIATRIC PROGRESS NOTE This late entry on 03/10/2019 covers elements not covered in my initial note. SUBJECTIVE: I met with the patient in the evening. The patient slept 8-3/4 hours the previous night. He remains confused, hard of hearing, and in a wheelchair, but overall more pleasant, cooperative. REVIEW OF SYSTEMS: No active hallucinations or aggression. MENTAL STATUS EXAM: Oriented to himself. Insight, judgment, recent and remote memory, attention, concentration, fund of knowledge poor, consistent with his diagnosis mentioned in my initial note. PLAN: No change from initial note. Possible discharge to nursing facility on 03/11/2019. MAN Modesta THOMAS MD DR: JOYCE/[email or web address] JOB#: [id number] / [id number]
== END 2019-03-11 09:50 | DRG 56 ==
LOC: ER 15:32 → GEROPSY 22:00 → ER 22:53
PROVIDERS: ADMIT Psychiatry & Neurology Psychiatry; ATTEND Psychiatry & Neurology Psychiatry
DX: G30.9 Alzheimer's disease, unspecified (principal); N17.0 Acute kidney failure with tubular necrosis; F01.51 Vascular dementia, unspecified severity, with behavioral disturbance; I13.0 Hypertensive heart and chronic kidney disease with heart failure and stage 1 through stage 4 chronic kidney disease, or unspecified chronic kidney disease; F63.9 Impulse disorder, unspecified; F41.9 Anxiety disorder, unspecified; N18.9 Chronic kidney disease, unspecified; F32.9 Major depressive disorder, single episode, unspecified; M10.9 Gout, unspecified; E03.9 Hypothyroidism, unspecified; E78.5 Hyperlipidemia, unspecified; H40.9 Unspecified glaucoma; H54.7 Unspecified visual loss; H90.5 Unspecified sensorineural hearing loss; I50.9 Heart failure, unspecified; N40.0 Benign prostatic hyperplasia without lower urinary tract symptoms; Z66 Do not resuscitate; Z02.89 Encounter for other administrative examinations; Z79.899 Other long term (current) drug therapy; Z87.01 Personal history of pneumonia (recurrent); Z87.440 Personal history of urinary (tract) infections; Z88.8 Allergy status to other drugs, medicaments and biological substances; Z99.3 Dependence on wheelchair
CPT/HCPCS: 36415; 70450; 71045; 72100; 72220; 73620; 78306; 80048; 80053; 80061; 80164; 81001; 82274; 82306; 82947; 83036; 83540; 83550; 83605; 83735; 84436; 84439; 84443; 84480; 84484; 85025; 85027; 85651; 86140; 86592; 87045; 87177; 87493; 93005; 93971; 94760; 96374; 96376; A9503; J2060; J3490; P9612; 97110; 97116; 97530; 97535; 99285-25; J7030